=== PATIENT | male | born 1985 | race Caucasian/White ===

== ENCOUNTER 2024-01-29 11:05 | Emergency (ER) | payer OTHER, SELFPAY ==
--- NOTE | ~2024-01-29 | XR_ITS ---
EXAMINATION: XR foot RT min 3V DATE: 01/29/2024 11:31 INDICATION: Right foot injury with pain at the base of the third toe TECHNIQUE: Dorsoplantar, two oblique and lateral views of the right foot were obtained. COMPARISON: None. FINDINGS: Oblique extra articular fracture across the proximal metaphyseal region of the third proximal phalanx . There is approximately 3 mm plantar/lateral displacement and 30 degrees dorsal angulation. No other fractures identified. Mild osteoarthritis at the first metatarsophalangeal and a few tarsometatarsal and interphalangeal joints. IMPRESSION: 1. Angulated and mildly displaced extra articular fracture at the base of the third proximal phalanx. Reviewed, dictated and finalized at location A. IMPRESSION: 1. Angulated and mildly displaced extra articular fracture at the base of the t hird proximal phalanx.
[2024-01-29 11:05] VITALS: BP 126/87; PULSE 76; RESP 16; TEMP 36.4; O2SAT 97
--- NOTE | 2024-01-29 11:35 | ED_ITS ---
HPI - Extremity Injury (Lower) General Chief Complaint: Extremity Injury, Lower Stated Complaint: right foot injury Time Seen by Provider: 01/29/24 11:21 Source: patient Mode of arrival: ambulatory Limitations: no limitations History of Present Illness HPI Narrative: patient here today with some injury to his right 3rd distal toe after he inadvertently kicked a wall has a history of stroke and has difficulty with control his lower extremity there is a mild deformity and pain with movement palpation otherwise there is a strong brisk pedal pulse no other injuries noted. complaint: foot injury Onset (ago): hour(s) Injury: Right: foot ( pain tenderness) Place: home Severity: severe Severity scale (1-10): 8 Related Data Allergies Allergy/AdvReac Type Severity Reaction Status Date / Time No Known Allergies Allergy Verified 01/29/24 11:11 Review of Systems Review of Systems: All systems reviewed & are unremarkable except as noted in HPI and below PMFSH Past Medical History Medical History History of stroke Exam Const: General: healthy appearing Nutritional Appearance: well nourished Orientation/consciousness: patient oriented x3 Limitations: no limitations Resp: Effort & Inspection: normal respiratory effort Auscultation: clear to auscultation bilaterally Cardio: Rate: regular rate Rhythm: regular rhythm GI: GI Palp: Yes Soft to palpation Auscultation: normal bowel sounds Skin: Wounds: wounds noted Other: bruise on the right 3rd toe Extrem: Other: pain with mild deformity and bruising to the 3rd right toe Course Course Emergency Course: patient received a dose of IM Toradol 60mg and reassessment pain level has improved x-ray performed reviewed which shows a fracture of his proximal 3rd phalanx on the right. Vital Signs Vital signs: Vital Signs Temperature 36.4 C L 01/29/24 11:05 Pulse Rate 76 01/29/24 11:05 Respiratory Rate 16 01/29/24 11:05 Blood Pressure 126/87 01/29/24 11:05 Pulse Oximetry 97 01/29/24 11:05 Oxygen Delivery Room Air 01/29/24 11:05 Temperature 36.5 C 01/29/24 12:10 Pulse Rate 85 01/29/24 12:10 Respiratory Rate 17 01/29/24 12:10 Blood Pressure 135/96 H 01/29/24 12:10 Pulse Oximetry 100 01/29/24 12:10 Oxygen Delivery Room Air 01/29/24 12:10 Critical Care Time Critical Care Time Critical Care Time: No Discharge Plan Discharge Clinical Impression: Fracture, toe Patient Disposition: Home, Self-Care Condition: Stable Instructions: Antibiotic Form, Toe Fracture (ED) Additional Instructions: advised patient to take medication as needed for pain and to follow with aubrey charlee / orthopedics for further evaluation treatment. Prescriptions: New tramadol 50 mg tablet 50 mg PO Q6H PRN (Reason: pain) Qty: 20 0RF Follow-up/Referrals: [facility] [Primary Care Provider] - Time of Disposition: 12:02
[2024-01-29] MEDS: KETOROLAC (*BKC) 60 MG/2 ML VIAL IM (11:41)
[2024-01-29 12:10] VITALS: BP 135/96; PULSE 85; RESP 17; TEMP 36.5; O2SAT 100
== END 2024-01-29 12:10 | disposition home or self-care (01) ==
PROVIDERS: Emergency Provider Emergency Medicine
DX: S92.511A Displaced fracture of proximal phalanx of right lesser toe(s), initial encounter for closed fracture (principal); W22.09XA Striking against other stationary object, initial encounter
CPT/HCPCS: 73630; 96372; 99284; J1885

== ENCOUNTER 2024-05-27 07:53 | Emergency (ER) | payer MEDICAID, SELFPAY ==
[2024-05-27 07:55] VITALS: BP 138/88; PULSE 80; RESP 14; TEMP 36.3; O2SAT 98
--- NOTE | 2024-05-27 08:02 | ED.EYEPROB ---
HPI - Eye Problem General Chief complaint: Eye Problems Stated complaint: left eye redness Source: patient Mode of arrival: ambulatory Limitations: no limitations History of Present Illness HPI Narrative: this is a 38-year-old male presents with some left eye irritation redness with some discharge no foreign body exposure no injury to the left eye. Patient denies any fever chills no shortness of breath. chief complaint: eye redness Onset (ago): day(s) Onset description: gradual Duration: constant Location: left eye Eye Symptoms: redness Related Data Allergies Allergy/AdvReac Type Severity Reaction Status Date / Time No Known Allergies Allergy Verified 01/29/24 11:11 Review of Systems Review of Systems: All systems reviewed & are unremarkable except as noted in HPI and below PMFSH Past Medical History Medical History History of stroke Exam Const: General: healthy appearing, no acute distress and alert Limitations: no limitations Eyes: Conjunctivae: conjunctival abnormality ( Conjunctival injection left eye) left Direct Ophthalmoscopy: no photophobia Chest: Chest palpation & inspection: normal inspection of the chest Resp: Effort & Inspection: normal respiratory effort Auscultation: clear to auscultation bilaterally Cardio: Rate: regular rate Rhythm: regular rhythm Skin: General skin exam: normal color Neuro: General: patient oriented x3, moves all extremities and no meningeal signs Course Course Emergency Course: antibiotic eyedrop given to left eye otherwise patient doing well no evidence of foreign body. Critical Care Time Critical Care Time Critical Care Time: No Discharge Plan Discharge Clinical Impression: Bacterial conjunctivitis Patient Disposition: Home, Self-Care Condition: Stable Instructions: Antibiotic Form, Conjunctivitis (ED) Additional Instructions: take medicine as prescribed and follow up with primary if symptoms persist or worsen. Prescriptions: New neomycin-polymyxin B-dexameth [Maxitrol] 3.5mg/mL-10,000 unit/mL-0.1 % drops,suspension 1 drp LEFT EYE Q6H 7 Days Qty: 5 0RF No Action tramadol 50 mg tablet 50 mg PO Q6H PRN (Reason: pain) Qty: 20 0RF Follow-up/Referrals: UNKNOWN,DOCTOR [Primary Care Provider] - Time of Disposition: 08:05
[2024-05-27] MEDS: NEOMYCIN/POLYMYXIN/HYDROCORT 7.5 ML EYE DROPS (*BKC) 2 DROP LEFT EYE (08:17)
== END 2024-05-27 08:25 | disposition home or self-care (01) ==
LOC: CHSED 08:10
PROVIDERS: Emergency Provider Emergency Medicine
DX: H10.89 Other conjunctivitis (principal); Z86.73 Personal history of transient ischemic attack (TIA), and cerebral infarction without residual deficits
CPT/HCPCS: 99283; A9270

== ENCOUNTER 2024-09-03 17:01 | Emergency (ER) | payer OTHER, SELFPAY ==
--- NOTE | 2024-09-03 17:09 | PC.NURSE ---
Pt arrives POV to ED with c/o dental pain. States he would like to get some antibiotics to treat two infected teeth that he will be getting pulled in [place] in 2 weeks. Pt well-appearing, not in distress, and calm at time of triage.
[2024-09-03 17:20] VITALS: BP 149/100; PULSE 91; RESP 18; TEMP 36.6; O2SAT 100
--- NOTE | 2024-09-03 17:59 | ED_ITS ---
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 He is having 3 teeth pulled in the next 2 weeks. MD Complaint: tooth pain and tooth injury Onset (ago): year(s) Duration: constant Severity: moderate Severity scale (1-10): 8 Relieving factors: NSAIDs Exacerbating factors: chewing, cold, heat and drinking fluids Context: history of dental caries and trauma (mechanism) Treatment prior to arrival: none Related Data Allergies Allergy/AdvReac Type Severity Reaction Status Date / Time No Known Allergies Allergy Verified 01/29/24 11:11 Review of Systems Review of Systems: All systems reviewed & are unremarkable except as noted in HPI and below Constitutional: Constitutional: Reports no additional constitutional complaints Eyes: Eyes: Reports no additional eye complaints ENT: Reports system reviewed and no additional complaints, except as documented Cardiovascular: Cardiovascular: Reports no additional cardiovascular complaints Respiratory: Respiratory: Reports no additional respiratory complaints Gastrointestinal: Gastrointestinal: Reports no additional gastrointestinal complaints Genitourinary: Genitourinary: Reports no additional male genitourinary complaints Musculoskeletal: Musculoskeletal: Reports no additional musculoskeletal complaints Integumentary/Breasts: Skin/Breast: Reports system reviewed and no additional complaints, except as docu Neurologic: Reports system reviewed and no additional complaints, except as documented Psychiatric: Psychiatric: Reports no additional psychiatric complaints Endocrine: Endocrine: Reports no additional endocrine complaints Hematologic/Lymphatic: Hematologic/Lymphatic: Reports no additional hematologic/lymphatic complaints Allergic/Immunologic: Allergic/Immunologic: Reports no additional allergic/immunologic complaints PMFSH Past Medical History Medical History History of stroke Exam Const: General: healthy appearing Nutritional Appearance: well nourished Orientation/consciousness: patient oriented x3 Limitations: no limitations HENMT: Head: normal to inspection Ears: external ears normal Face/Nose/Sinus: Normal external nose present Other: Poor dentition seen throughout the entire oral cavity secondary to prior trauma and carries the colon no abscess is seen; he pointed out 3 teeth of a mix from mandible to maxillary that her the source of infection Eyes: Conjunctivae: conjunctivae normal Pupils: Equal, round and reactive pupils present EOM: EOMs intact bilaterally Neck: Neck: normal visual inspection Chest: Chest palpation & inspection: normal inspection of the chest Resp: Effort & Inspection: normal respiratory effort and not labored Auscul tation: clear to auscultation bilaterally and no crackles Cardio: Rate: regular rate Rhythm: regular rhythm Heart sounds: no murmurs GI: Inspection: non-distended Auscultation: normal bowel sounds : General: Yes bladder normal to palpation Back/Spine/Pelvis: Back: no CVA tenderness Skin: General skin exam: normal color Rashes: no rashes Wounds: no wounds Neuro: General: patient oriented x3 Cranial nerves: Yes Nystagmus not present Speech: normal speech Extrem: General: normal to inspection Psych: Mental Status: mental status grossly normal Affect: normal affect Attitude: cooperative Course Vital Signs Vital signs: Vital Signs Temperature 36.6 C 09/03/24 17:20 Pulse Rate 91 09/03/24 17:20 Respiratory Rate 18 09/03/24 17:20 Blood Pressure 149/100 H 09/03/24 17:20 Pulse Oximetry 100 09/03/24 17:20 Oxygen Delivery Room Air 09/03/24 17:20 Temperature 36.6 C 09/03/24 17:20 Pulse Rate 91 09/03/24 17:20 Respiratory Rate 18 09/03/24 17:20 Blood Pressure 149/100 H 09/03/24 17:20 Pulse Oximetry 100 09/03/24 17:20 Oxygen Delivery Room Air 09/03/24 17:20 MDM - Dental/Oral MDM Narrative Medical decision making narrative: patient is a 39-year-old male with poor dentition secondary to prior trauma. He is having lots of pain and plans for removal of 3 teeth in the next 2 weeks. Will do Augmentin per his choice which works the best over the years. He did not want pain management. He will use [id number] medicine. Discharge Plan Discharge Clinical Impression: Mandible pain, Maxilla pain Patient Disposition: Home, Self-Care Condition: Stable Instructions: Antibiotic Form, Toothache (ED) Prescriptions: New amoxicillin-pot clavulanate 875-125 mg tablet 1 tablet PO BID 10 Days Qty: 20 0RF Follow-up/Referrals: Aki,Leobardo Renee MD [Primary Care Provider] - Time of Disposition: 18:27
[2024-09-03 18:31] VITALS: BP 119/81; PULSE 72; RESP 18; TEMP 36.5; O2SAT 94
== END 2024-09-03 18:33 | disposition home or self-care (01) ==
PROVIDERS: Emergency Provider Emergency Medicine; PCP Family Medicine
DX: R68.84 Jaw pain (principal)
CPT/HCPCS: 99283

== ENCOUNTER 2024-11-19 08:45 | Emergency (ER) | payer OTHER, SELFPAY ==
[2024-11-19 08:45] VITALS: BP 142/96; PULSE 89; RESP 16; TEMP 36.3; O2SAT 97
--- NOTE | 2024-11-19 08:51 | ED_ITS ---
HPI - Dental/Oral General Chief complaint: Dental/Oral Stated complaint: dental pain Time Seen by Provider: 11/19/24 08:46 Source: patient Mode of arrival: ambulatory Limitations: no limitations History of Present Illness HPI Narrative: patient is a 39-year-old male with general dental complaints and issues but specifically right upper jaw dental issues for the past week. His main reason for poor dentition and cracked teeth her from a brain aneurysm and a seizure many years ago. He has an appointment with a dentist at the end of the month. MD Complaint: tooth pain and tooth injury Location: Tooth # ( One, 2, 3) Onset (ago): week(s) (1) Duration: constant Severity: moderate Severity scale (1-10): 5 Relieving factors: nothing Exacerbating factors: nothing Context: history of dental caries and trauma (mechanism) Associated symptoms: other ( none) Treatment prior to arrival: oral analgesic ( [place]) Related Data Allergies Allergy/AdvReac Type Severity Reaction Status Date / Time No Known Allergies Allergy Verified 11/19/24 08:47 Review of Systems Review of Systems: All systems reviewed & are unremarkable except as noted in HPI and below Constitutional: Constitutional: Reports no additional constitutional complaints Eyes: Eyes: Reports no additional eye complaints ENT: Reports system reviewed and no additional complaints, except as documented Cardiovascular: Cardiovascular: Reports no additional cardiovascular complaints Respiratory: Respiratory: Reports no additional respiratory complaints Gastrointestinal: Gastrointestinal: Reports no additional gastrointestinal complaints Genitourinary: Genitourinary: Reports no additional male genitourinary complaints Musculoskeletal: Musculoskeletal: Reports no additional musculoskeletal complaints Integumentary/Breasts: Skin/Breast: Reports system reviewed and no additional complaints, except as docu Neurologic: Reports system reviewed and no additional complaints, except as documented Psychiatric: Psychiatric: Reports no additional psychiatric complaints Endocrine: Endocrine: Reports no additional endocrine complaints Hematologic/Lymphatic: Hematologic/Lymphatic: Reports no additional hematologic/lymphatic complaints Allergic/Immunologic: Allergic/Immunologic: Reports no additional allergic/immunologic complaints PMFSH Past Medical History Medical History History of stroke Exam Const: General: healthy appearing Nutritional Appearance: well nourished Orientation/consciousness: patient oriented x3 HENMT: Head: normal to inspection Ears: external ears normal Face/Nose/Sinus: Normal external nose present Other: general poor dentition and cracked teeth but specifically tooth 1 2 and 3 are worn down and cracked and irritated /inflamed; no abscesses Eyes: Conjunctivae: conjunctivae normal Pupils: Equal, round and reactive pupils present EOM: EOMs intact bilaterally Neck: Neck: normal visual inspection Chest: Chest palpation & inspection: normal inspection of the chest Resp: Effort & Inspection: normal respiratory effort and not labored Auscultation: clear to auscultation bilaterally and no crackles Cardio: Rate: regular rate Rhythm: regular rhythm Heart sounds: no murmurs GI: Inspection: non-distended GI Palp: Yes Soft to palpation and No Tenderness to palpation present (GI) Auscultation: normal bowel sounds : General: Yes bladder normal to palpation Back/Spine/Pelvis: Back: no CVA tenderness Skin: General skin exam: normal color Rashes: no rashes Wounds: no wounds Neuro: General: patient oriented x3 Cranial nerves: Yes Nystagmus not present Speech: normal speech Extrem: General: normal to inspection Psych: Mental Status: mental status grossly normal Affect: normal affect Attitude: cooperative Discharge Plan Discharge Clinical Impression: Maxilla pain Patient Disposition: Home, Self-Care Condition: Stable Instructions: Antibiotic Form, Toothache (ED) Additional Instructions: please follow-up with the dentist as planned at the end of this month. Patient Language: Telugu Prescriptions: New clindamycin HCl 300 mg capsule 300 mg PO TID 10 Days Qty: 30 0RF ibuprofen 800 mg tablet 800 mg PO TID PRN (Reason: pain) Qty: 30 0RF No Action amoxicillin-pot clavulanate 875-125 mg tablet 1 tablet PO BID 10 Days Qty: 20 0RF Follow-up/Referrals: Homar,MARYJANE Iraheta [Primary Care Provider] - Time of Disposition: 09:00
--- OUTSIDE RECORDS SUMMARY | 2024-11-19 08:56 | XMS_ITS | Patient Health Record ---
Author Organization Address [address] [place] [address] Care Team Providers Care Fruit Packer Name Role Phone Goran Mckinney Primary Care Provider Allergies No Known Allergies Reason For Referral No Information Medications Medication SIG (Take, Route, Frequency, Duration) Notes Start Date End Date Status Amoxicillin Active Social History Tobacco Use: Social History Observation Description Date Details (start date - stop date) Current Smoker NA - NA Tobacco Use/Smoking Question Answer Notes Are you a current smoker Plan Of Treatment No Information Medical (General) History Medical History History ICD Code high blood pressure herpes/fever blisters dialysis-2008 radiation treatment difficulty breathing stroke 2008 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
--- OUTSIDE RECORDS SUMMARY | 2024-11-19 08:59 | XMS_ITS | Encounter Summary ---
Author Name [facility] Address [address] [place] [address] Care Team Providers Care Retail Sales Associate Seasonal Name Role Phone AARON KENNEDY Primary Care Provider Unavailab le Insurance Providers: All historical and current Section Date Range: From patient's date of to the date document was created. This section includes the names of all active insurance providers for the patient. Insurance Provider Type of Coverage Plan Name Start of Policy Coverage End of Policy Coverage Group Number Member ID Insurance Provider's Telephone Number Policy Palacios's Name Patient's Relationship to Policy Palacios [facility] 2018 PRIME Sep 29, 2017 RETIREE [id number] CHERISERICK Bell PATIENT [facility] 2018 TRICA RE Sep 29, 2017 PRIME [id number] RICK CUMMINGS PATIENT Selected Encounter This section includes the information on record at NH for the Encounter. Date/Time Encounter Type Encounter Description Reason Provider Source Mar 18, 2024 10:30 AM OFFICE O/P EST LOW 20 MIN PRIMARY CARE/MEDICINE ICD-10-CM Z00.00 Encntr for general adult medical exam w/o abnormal findings JENNIFER KENNEDY IHMariana Encounter Template Text not used by [facility] Assessments - Encounter Diagnoses This section includes the primary and secondary diagnoses documented for the Encounter. Date/Time Primary/Secondary Diagnosis Diagnosis Name Provider Source Mar 18, 2024 12:16 PM PRIMARY Encntr for general adult medical exam w/o abnormal findings JENNIFER KENNEDY [facility] Mar 18, 2024 12:16 PM SECONDARY Adjustment disorder with depressed mood JENNIFER KENNEDY [facility] Mar 18, 2024 12:16 PM SECONDARY Arteriovenous malformation, site unspecified JENNIFER KENNEDY [facility] Mar 18, 2024 12:16 PM SECONDARY Pain in unspecified knee JENNIFER KENNEDY [facility] Mar 18, 2024 12:16 PM SECONDARY Tobacco use JENNIFER KENNEDY [facility] Mar 18, 2024 12:16 PM SECONDARY Vitamin D deficiency, unspecified JENNIFER KENNEDY [facility] Plan of Treatment: Future Appointments (+ 6 months) and Future Tests (+/- 45 days) The Plan of Treatment section includes future care activities for the patient from all [place] treatmentfacilities. This section includes future appointments and future orders which are active, pending or scheduled. Future Appointments This section includes appointments that were scheduled to occur 6 months from the date of the Encounter, up to a maximum of 20 appointments. The data comes from all [place] treatment facilities. Appointment Date/Time Appointment Type Appointme nt Facility Name Apr 30, 2024 08:30 AM AMBULATORY - SURGERY [facility] Lab Results: +/- 30 days of the encounter This section includes the Chemistry and Hematology Lab Results on record with NH for the patient. Radiology Reports and Pathology Reports are provided separately, in subsequent sections. Lab Results This section contains the Chemistry/Hematology Results that were resulted 30 days before or 30 daysafter the date of the Encounter. Date/Time Source Result Type Result - Unit Interpretation Reference Range Comment Mar 18, 2024 12:[address] [facility] LIPID PANEL (STL) Specimen Type: PLASMA Comment: No hemolysis noted. Ordering Provider: GIL KENNEDY Report Released Date/Time: Mar 18, 2024 10:55 AM Reporting Lab: [facility] [address] [facility] [address] Performing Lab: [facility] [address] [facility] [address] CHOLESTEROL 209 mg/dL H 0-200 TRIGLYCERIDE 247 mg/dL H 0-150 CALCULATED LDL 106 mg/dL HDL(New) 54 mg/dL >40 Mar 18, 2024 12:00 AM [facility] COMPREHENSIVE METABOLIC PANEL Specimen Type: PLASMA Comment: No hemolysis noted. Ordering Provider: GIL KENNEDY Report Released Date/Time: Mar 18, 2024 10:55 AM Reporting Lab: [place] [address] [facility] [address] Performing Lab: [address] [address] CREATININE 1.14 mg/dL 0.7-1.3 UREA NITROGEN 16.6 mg/dL 9.0-25.0 GLUCOSE 108 mg/dL H 72-99 SODIUM 139 meq/L 136-145 POTASSIUM 4.9 meq/L 3.5-5 CHLORIDE 106 meq/L 98-107 CARBON DIOXIDE 25 meq/L 22-31 CALCIUM 9.3 mg/dL 8.4-10.4 PROTEIN 6.9 g/dL 6-8.6 ALBUMIN 4.3 g/dL 3.4-5 TOTAL BILIRUBIN 0.5 mg/dL 0.2-1.2 ALKALINE PHOSPHATASE 73 U/L 40-150 AST/SGOT 28 U/L 5-34 ALT/SGPT 24 U/L 8-40 EGFR (CKD-EPI 2020) 85.5 >60 Mar 18, 2024 12:00 AM [facility] HGA1C Specimen Type: BLOOD No comment entered. Ordering Provider: GIL KENNEDY Report Released Date/Time: Mar 18, 2024 10:55 AM Reporting Lab: [address] [address] Performing Lab: [address] [address] HGA1C 5.5 4.0-6.0 Mar 18, 2024 12:00 AM [facility] TSH W/ REFLEX FT4 (STL) Specimen Type: PLASMA No comment entered. Ordering Provider: GIL KENNEDY Report Released Date/Time: Mar 18, 2024 10:55 AM Reporting Lab: [address] [address] Performing Lab: [address] [place] [address] TSH 0.605 u[IU]/mL 0.47-5 Mar 18, 2024 12:00 AM [facility] CBC Specimen Type: BLOOD No comment entered. Ordering Provider: GIL KENNEDY Report Released Date/Time: Mar 18, 2024 10:55 AM Reporting Lab: [address] [address] Performing Lab: [address] [address] WBC 4.7 10*3/uL 3.6-11.2 RBC 4.62 10*6/uL 4.10-5.70 HGB 14.3 g/dL 13.1-16.8 HCT 42.9 38.2-48.4 MCV 92.9 fL 80.0-100.0 MCH 31.0 pg 27.0-34.0 MCHC 33.3 g/dL 33.0-36.0 PLT 237 10*3/uL 150-400 MPV 10.6 fL 7.5-11.2 RDW 12.2 11.8-15.1 LYMPHOCYTES, AUTO % 30 MONOCYTES, AUTO % 8 NEUTROPHILS, AUTO % 58 EOSINOPHILS, AUTO % 3 BASOPHILS, AUTO % 1 LYMPHOCYTES, ABSOLUTE 1.42 10*3/uL 0.77-4.50 MONOCYTES, ABSOLUTE 0.38 10*3/uL 0.19-0.80 NEUTROPHILS, ABSOLUTE 2.72 10*3/uL 2.10-8.00 EOSINOPHILS, ABSOLUTE 0.13 10*3/uL 0.00-0.60 BASOPHILS, ABSOLUTE 0.06 10*3/uL 0.00-0.20 Mar 18, 2024 12:00 AM [facility] VITAMIN D, 25-HYDROXY Specimen Type: SERUM No comment entered. Ordering Provider: GIL KENNEDY Report Released Date/Time: Mar 18, 2024 10:55 AM Reporting Lab: [address] [address] Performing Lab: [address] [address] VITAMIN D, 25-HYDROXY 35.9 ng/mL 30-96 Vital Signs: All taken on the encounter date This section contains inpatient and outpatient Vital Signs collected on the date of the Encounter. Date/Time Temperature Pulse Blood Pressure Respiratory Rate SP02 Pain Height Weight Body Mass Index Source Mar 18, 2024 10:28 AM 97.6 77 122/81 [address] [facility] Social History: Smoking Status (Most current) and Tobacco Use (All prior to encounter date) This section includes the most current, and the historical, smoking and tobacco- related health factors from the [place] facility where the Encounter took place. Current Smoking Status This section includes the most current smoking, or tobacco-related health factor, from the [place] facility where the Encounter took place. Date/Time Current Smoking Status Comment Facil ity Mar 18, 2024 10:30 AM VA-TOBACCO FORMER USER [facility] Tobacco Use History This section includes a history of the smoking, or tobacco-related health factors, that were collected on or before the date of the Encounter. The data comes from the [place] facility where the Encounter took place. Date/Time Smoking Status/Tobacco Use Comment F acility Mar 18, 2024 10:30 AM [facility] QUIT < [facility] Mar 18, 2023 09:00 AM VA-TOBACCO DOESNT USE WI [address] [facility] Mar 18, 2023 09:00 AM VA-TOBACCO USE [address] TO [address] [facility] Mar 18, 2023 09:00 AM VA-TOBACCO USE ADVICE 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 Mar 18, 2023 09:00 AM VA-TOBACCO USE MED NO [facility] Mar 18, 2023 09:00 AM VA-TOBACCO USER EVERY DAY [facility] Encounter Notes: All associated encounter notes This section contains the clinical notes associated to the Encounter. Date/Time Encounter Note(s) Provider Source Mar 19, 2024 07:56 AM PHYSICIAN LETTERS: LOCAL TITLE: TEST RESULT GENERAL LETTER STL STANDARD TITLE: PHYSICIAN LETTERS DATE OF NOTE: MAR 19, 2024@07:56 ENTRY DATE: MAR 19, 2024@07:56:43 AUTHOR: AARON KENNEDY EXP COSIGNER: URGENCY: STATUS: COMPLETED [facility] [address] [place] [address] MAR 19, 2024 RICK CUMMINGS [address] [place], [place] [address] Dear Rick Cummings, I would like to update you on your recent test results. LIPID PROFILE - High cholesterol and triglycerides (lipids) are risk factors for heart disease. Your cholesterol should fall between 140 and 200, and your triglycerides levels should be less than or equal to 150. HDL is the good cholesterol and should ideally be greater than 40. LDL is the bad cholesterol and optimal levels should be less than 100 (near optimal is between 100 and 129). TRIGLYCERIDE 247 H mg/dL 03/18/2024 CHOLESTEROL 209 H mg/dL 03/18/2024 HDL(New) 54 mg/dL 03/18/2024 CALCULATED LDL 106 mg/dL 03/18/2024 These results are abnormal. You can improve these values by changing your diet and exercise regimen. Please review the following recommendations: -Incorporate 30-minutes of exercise with walking 5 days per week. Increasing your physical activity can help with weight management and improve your cholesterol levels. -Carefully review nutrition labels. Decrease intake of saturated fats or trans-fats. Monitor your salt intake. -Reduce your intake of sugars such as cake or candy. Additional hidden sugars are found foods such as pastries, breads, and pasta. Monitor your intake of these items as well and try not to consume on a daily basis. -Increase your intake of fresh or frozen fruits and vegetables which is preferred over canned or processed items. Canned foods have high amounts of sugar and salt. -Low fat dairy products are encouraged. -Leaner meats such as chicken or fish can have less fat that beef or pork. HEMOGLOBIN A1C - Gives us information about your diabetes (sugar or glucose) control over the past 3 months. Your target is to keep your A1C below 5.7%. HGA1C 5.5 % 03/18/2024 00:00 These readings are within normal limits. CBC - A complete blood count (CBC) gives important information about the kinds and numbers of cells in the blood, especially red blood cells, white blood cells, and platelets. HGB 14.3 g/dL 03/18/2024 00:00 HEMATOCRIT 42.9 % (03/18/24 00:00) PLT 237 10*3/uL 03/18/2024 00:00 WHITE BLOOD COUNT 4.7 10*3/uL (03/18/24 00:00) These readings are within normal limits. CHEM 7 - This is important information about the current status of your kidneys, liver, and electrolyte and acid/base balance as well as of your blood sugar and blood proteins. SODIUM 139 mEq/L 03/18/2024 POTASSIUM 4.9 mEq/L 03/18/2024 CHLORIDE 106 mEq/L 03/18/2024 UREA NITROGEN 16.6 mg/dL 03/18/2024 CREATININE 1.14 mg/dL 03/18/2024 CALCIUM 9.3 mg/dL 03/18/2024 CARBON DIOXIDE 25 mEq/L 03/18/2024 GLUCOSE 108 H mg/dL 03/18/2024 EGFR (CKD-EPI 2020) 85.5 03/18/2024 These readings are within normal limits. LIVER FUNCTION PANEL - These are tests for liver function: PROTEIN 6.9 g/dL 03/18/2024 ALBUMIN 4.3 g/dL 03/18/2024 TOTAL BILIRUBIN 0.5 mg/dL 03/18/2024 ALKALINE PHOSPHATASE 73 U/L 03/18/2024 AST/SGOT 28 U/L 03/18/2024 ALT/SGPT 24 U/L 03/18/2024 These readings are within normal limits. TSH - Thyroid-stimulating hormone (also known as TSH or thyrotropin) is a peptide hormone synthesized and secreted by thyrotrope cells in the anterior pituitary gland, which regulates the endocrine function of the thyroid gland. TSH TSH 0.605 uIU/mL 03/18/2024 00:00 These readings are within normal limits. VITAMIN D - Helps promote the proper utilization of calcium and phosphorus, thereby producing proper bone maintenance. VITAMIN D, 25-HYDROXY 35.9 ng/mL 03/18/2024 00:00 These readings are within normal limits. PLAN Please continue your treatment as we discussed during your visit. If you have any questions please call your case loader operator. I look forward to seeing you at your next clinic appointment. Thank you for choosing the [facility] for your healthcare. FUTURE APPOINTMENTS: 03/18/2025 10:30 NOE-NOCO PACT 7 PCP Sincerely, AARON KENNEDY, MSN, AGNP-C NURSE PRACTITIONER RICK CUMMINGS JR, TAYLOR L [facility] Mar 18, 2024 10:49 AM PRIMARY CARE NOTE: LOCAL TITLE: PRIMARY CARE PROVIDER [facility] STAND[facility] TITLE: PRIMARY CARE NOTE DATE OF NOTE: MAR 18, 2024@10:49 ENTRY DATE: MAR 18, 2024@10:49:12 AUTHOR: AARON KENNEDY EXP COSIGNER: URGENCY: STATUS: COMPLETED ESTABLISHED PATIENT TQAH-NC-FQID REASON FOR VISIT/CHIEF COMPLAINT: follow up HPI: PMH, see problem list 38 y/o male who presents to the medical clinic for his scheduled follow up visit. The purpose of the visit today is to follow up on the veterans chronic medical conditions. Denies new concerns or complaints. He is accompanied to clinic with his significant other. Last PCP visit: 03/18/2023 AVM. 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 Referred to private neurosurgery clinic in 2022. Based on his prior imaging has neurosurgery provider felt like the aneurysm was stable. Vitamin D deficiency. - Completed ergocalciferol. Taking OTC cholecalciferol of unknown dose. Headache - Prior head CT revealed unchanged encephalomalacia and gliosis predominantly throughout the right cerebellar hemisphere; otherwise, no acute hemorrhage WHAT IS YOUR GOAL FOR TODAY? F/U chronic medical conditions SOURCE(S) OF HISTORY: -Patient PAST MEDICAL HISTORY: 1) Congenital arteriovenous malformation comment: 12/2007 [place] 2) Tinnitus 3) Pneumonia, organism unspecified comment: August 2010, received pneumovax vaccine comment: 02/20/11 ru and l [place], [place] 4) Sleep disturbances 5) Cerebral aneurysm, nonruptured (ICD-9-CM 437.3) 6) Adjustment disorder with depressed mood (SNOMED CT 56956831) 7) Pain of joint of knee (SNOMED CT 4014149149) 8) Vitamin D Deficiency ([facility] [id number]) SURGICAL HISTORY: - aneurysm clip in 2007 FAMILY MEDICAL HISTORY: DM: father, sister, PGF, paternal uncle CAD/IHD: mother (HTN) MH: denies CA: denies SOCIAL HISTORY: Nicotine: quit smoking tobacco, vaping Alcohol: consumes ETOH socially Illicit Drugs: present use, MJ -Lives: w/ cousin -Grocery: independent -Meals: independent -ADL's: independent -Transportation: grandfather brought him to clinic -Medications: independent -finances: independent Allergy: ADHESIVE TAPE Allergy list reviewed and remains current. MEDICATIONS: Active Outpatient Medications (including Supplies): Active Outpatient Medications Status 1) CHOLECALCIF 50MCG (D3-2,000UNIT) TAB TAKE ONE TABLET ACTIVE BY MOUTH ONCE A DAY FOR VITAMIN D DEFICIENCY START CHOLECALCIFEROL AFTER COMPLETING ERGOCALCIFEROL MEDICATION RECONCILIATION: completed REVIEW OF SYSTEMS: See HPI for further details of positive complaints. All 10 systems reviewed and otherwise negative. PHYSICAL EXAMINATION: VITALS (most recent, as listed in the electronic record): Temperature: 97.6 F [36.4 C] (03/18/2024 10:28) BP: 122/81 (03/18/2024 10:28) Pulse: 77 (03/18/2024 10:28) Resp: 18 (03/18/2024 10:28) PulsOx: 98% (03/18/2024 10:28) Pain: 2 (03/18/2024 10:28) Weight: Measurement DT WEIGHT LB(KG)[BMI] 03/18/2024 10:28 167.2(75.84)[22] PHYSICAL EXAMINATION: General appearance: well-groomed, well-nourished, in no distress HEENT: sclera/conjunctiva clear, TMs pearly colindres, nares patent no secretions or inflammation, oropharynx WNL Neck: supple, no lymphadenopathy or thyromegaly Cardiovascular: RRR, no murmur, no gallop Respiratory: CTA, no wheezes, crackles or rhonchi ABD/GI: normal contour, bs + in all quads, non-tender M/S: normal gait and posture Extremities: radial/PT pulses 2+, warm, well-perfused Psych: normal affect Neuro: Alert and oriented x 3 Skin: warm, dry, normal color and texture, skin intact DATA REVIEW: HGA1C 5.7 % 03/18/2023 09:40 = Lipid Panel: TRIGLYCERIDE 129 mg/dL 03/18/2023 09:40 CHOLESTEROL 219 H mg/dL 03/18/2023 09:40 HDL(New) 49 mg/dL 03/18/2023 09:40 CALCULATED LDL 144 mg/dL 03/18/2023 09:40 = CMP: SODIUM 142 mEq/L 03/10/2023 15:05 POTASSIUM 4.4 mEq/L 03/10/2023 15:05 CHLORIDE 107 mEq/L 03/10/2023 15:05 UREA NITROGEN 8 L mg/dL 03/10/2023 15:05 CREATININE 1.10 mg/dL 03/10/2023 15:05 CALCIUM 9.1 mg/dL 03/10/2023 15:05 PROTEIN 6.9 g/dL 03/10/2023 15:05 ALBUMIN 4.2 g/dL 03/10/2023 15:05 ALKALINE PHOSPHATASE 83 U/L 03/10/2023 15:05 ALT/SGPT 33 U/L 03/10/2023 15:05 AST/SGOT 31 U/L 03/10/2023 15:05 TOTAL BILIRUBIN 0.5 mg/dL 03/10/2023 15:05 CARBON DIOXIDE 25 mEq/L 03/10/2023 15:05 GLUCOSE 84 mg/dL 03/10/2023 15:05 EGFR (CKD-EPI 2020) 89.8 03/10/2023 15:05 = CBC: WBC 4.8 10*3/uL 03/10/2023 15:05 RBC 4.68 10*6/uL 03/10/2023 15:05 HGB 15.3 g/dL 03/10/2023 15:05 HCT 43.8 % 03/10/2023 15:05 MCV 93.6 fL 03/10/2023 15:05 MCH 32.7 pg 03/10/2023 15:05 MCHC 34.9 g/dL 03/10/2023 15:05 RDW 12.5 % 03/10/2023 15:05 PLT 176 10*3/uL 03/10/2023 15:05 MPV 10.3 fL 03/10/2023 15:05 NEUTROPHILS, AUTO % 48 % 03/10/2023 15:05 LYMPHOCYTES, AUTO % 31 % 03/10/2023 15:05 MONOCYTES, AUTO % 17 % 03/10/2023 15:05 EOSINOPHILS, AUTO % 3 % 03/10/2023 15:05 BASOPHILS, AUTO % 1 % 03/10/2023 15:05 NEUTROPHILS, ABSOLUTE 2.32 10*3/uL 03/10/2023 15:05 LYMPHOCYTES, ABSOLUTE 1.48 10*3/uL 03/10/2023 15:05 MONOCYTES, ABSOLUTE 0.80 10*3/uL 03/10/2023 15:05 EOSINOPHILS, ABSOLUTE 0.16 10*3/uL 03/10/2023 15:05 BASOPHILS, ABSOLUTE 0.05 10*3/uL 03/10/2023 15:05 = PSA: No PSA (LAST 10 5Y) EO data found = TSH: No TSH (1YR) EO data found = Vitamin D: VITAMIN D, 25-HYDROXY 10.8 L ng/mL 11/07/2022 06:00 = UA: URINE COLOR Colorless 03/10/2023 15:05 APPEARANCE Clear 03/10/2023 15:05 U.PH 6.5 03/10/2023 15:05 U.BILIRUBIN Negative mg/dL 03/10/2023 15:05 U.NITRITE Negative mg/dL 03/10/2023 15:05 URINE RBC/HPF 1 /HPF 03/10/2023 15:05 URINE WBC/HPF 3 /HPF 03/10/2023 15:05 BACTERIA RARE /HPF 03/10/2023 15:05 = Vitamin B12: B12 487 pg/mL 11/07/2022 06:00 = Micral: CREATuF: 42.8 (03/10/23 15:05) ASSESSMENT/PLAN: # Preventative Healthcare/Annual visit - routine healthcare, preventative screenings, and immunizations reviewed. # AVM/DUKES: - Discharged from neurology clinic. EEG was within normal limits. Epileptic medications not indicated at this time. - Last CT scan of head without new findings. [place] refer to [place] neuro[place] clinic for follow-up regarding aneurysm. Based on the last note from his private neurosurgery clinic it was recommended the be seen again in 1 year. # Vit D Def: - Continue daily [id number] vitamin D3 supplement - Repeat labs. Will make further recommendations based on repeat results # Adjustment disorder: - Mood is stable off meds at this time # Knee pain: - No overt complaints today # Tobacco Use: - Remains free of tobacco use. HM: AAA screen: defer d/t age Colorectal cancer screening: defer d/t age Prostate cancer screening: defer d/t age Lung cancer screening: Eligibility: defer d/t age ADMINISTERED Immunization Series Date Facility Reaction Info INFLUENZA, UNSPECIFIED FORMULATI* 08/03/2012 [facility] INFLUENZA, UNSPECIFIED FORMULATI* 06/05/2011 [facility] PNEUMOCOCCAL POLYSACCHARIDE PPV23 03/18/2023 [facility]* TDAP 03/18/2023 [facility] TDAP [employer] REFUSED ======= Immunization Date Facility Info COVID-19 (PFIZER), MRNA, LNP-S, * 03/18/2023 [facility] <I> COVID-19 (PFIZER), MRNA, LNP-S, * 03/18/2024 No Site <I> clinical reminders completed; educated on continuing to avoid salt, conc sweets; benefits of continued exercise, reg PCP visits, routine eyes exams Plan of care has been discussed with including expected therapeutic benefits and potential side effects of prescribed medications and treatments. Current medication list has been reconciled with and updated accordingly. was instructed to keep all scheduled appointments and to contact correctional case manager for any additional problems. verbalizes understanding and is in agreement with the plan of care. RTC: Annually or sooner as needed PREVENTION & SCREENING: ALCOHOL: Clinical Reminder not due now or within a month BLOOD PRESSURE: Clinical Reminder not due now or within a month HEMOGLOBIN A1C: Clinical Reminder not due now or within a month RHS Screen: RHS Screen Session Format: Face to Face Environmental Check Screening was not completed at this time due to: Another adult present /jese/ AARON KENNEDY, MSN, AGNP-C NURSE PRACTITIONER Signed: 03/18/2024 12:16 A[facility]ON KENNEDY [facility] Mar 18, 2024 10:44 AM NURSING NOTE: LOCAL TITLE: V15 PACT FACE TO FACE NOTE STL STANDARD TITLE: NURSING NOTE DATE OF NOTE: MAR 18, 2024@10:44 ENTRY DATE: MAR 18, 2024@10:44:42 AUTHOR: AQUILES SALDIVAR EXP COSIGNER: URGENCY: STATUS: COMPLETED Homelessness/Food Insecurity Screen: In the past 2 months, have you been living in stable housing that you own, rent, or stay in as part of a household? Yes - Living in stable housing. Are you worried or concerned that in the next 2 months you may NOT have stable housing that you own, rent, or stay in as part of a household? No - Not worried about housing near future The reports the following: Within the past 12 months, you worried whether your food would run out before you got money to buy more. Never true Within the past 12 months, the food you bought just didn't last and you didn't have money to get more. Never true Tobacco Use Screening: The patient is a former tobacco user. The patient quit less than one year ago. /jese/ AQUILES SALDIVAR LPN LICENSED PRACTICAL NURSE Signed: 03/18/2024 10:[address] [facility]
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
--- OUTSIDE RECORDS SUMMARY | 2024-11-19 09:10 | XMS_ITS | Encounter Summary ---
Author Name [facility] [facility] [place] Address [address] [place] [address] Care Team Providers Care Industrial Photographer Name Role Phone AARON KENNEDY Primary Care [...] Palacios's Name Patient's Relationship to Policy Palacios [facility] 2018 PRIME Sep 29, 2017 RETIREE [id number] CHERISEMARCY BellDY PATIENT [facility] 2018 TRICA RE Sep 29, 2017 PRIME [id number] RICK CUMMINGS PATIENT Selected Encounter This section includes the information on [place] at [place] for the Encounter. Date/Time Encounter Type Encounter Description Reason Pro vider Source Sep 09, 2024 01:47 PM Outpatient Encounter GENERAL INTERNAL MEDICINE [facility] Encounter Template Text not used by [place] Social History: Smoking Status (Most current) and Tobacco Use (All prior to encounter date) This section includes the most current, and the historical, smoking and tobacco- related health factors from the [place] facility where the Encounter took place. Current Smoking Status This section includes the most current smoking, or tobacco-related health factor, from the [facility] facility where the [facility]counter took place. Date/Time Current Smoking Status Comment Bereket viveros Nov 06, 2022 11:27 PM [place] TOBAC[place] U SE CURRENT NRT DECLINE [facility] Tobacco Use History This section includes a history of the smoking, or tobacco-related health factors, that were collected on or before the date of the Encounter. The data comes from the [facility] where the Encounter took place. Date/Time Smoking Status/Tobacco Use Comment F acility Nov 06, 2022 11:25 PM [facility] ADMIT TOBACCO SCREEN YES [facility] Nov 06, 2022 11:25 PM [facility]YX ADMIT TOBACCO USE CIGS GR 5D [facility] Nov 06, 2022 11:25 PM [facility] DAILY TOBACCO INTELLIGENCE RESEARCH SPECIALIST RECEIVED [facility] Nov 06, 2022 11:25 PM [facility] DAILY TOBACCO MEDS ORDERED [facility] Encounter Notes: All associated encounter notes This section contains the clinical notes associated to the Encounter. Date/Time Encounter Note(s) Provider Source Sep 06, 2024 01:47 PM NONVA NOTE: LOCAL TITLE: [facility] SELF PRESENTING CARE COORD PLAN STANDARD TITLE: NONVA NOTE DATE OF NOTE: SEP 06, 2024@13:47 ENTRY DATE: SEP 09, 2024@13:47:33 AUTHOR: LETICIA JONES EXP COSIGNER: URGENCY: STATUS: COMPLETED [facility] SELF PRESENTING CARE COORD PLAN [address] Has ADDENDA Emergency Notification Intake Date Presenting to the Facility: Aug Method of Contact: Notified from [facility] worklist Notification ID: [id number] [facility] Referral #: [id number] Clinical Review [facility] Name: Hospital: [facility] Address: [address] [place] [address]: [place]: [place] Zip Code: [address] [facility] Facility Point of Contact: Name: Nahed Jacobsen Chief complaint: Tooth Pain Primary Diagnosis: Disposition Discharged Date of discharge: Aug Discharge to home Records req'd by fax. /jese/ LETICIA JONES ADVANCED ENROLLMENT REPRESENTATIVE Signed: 09/09/2024 13:49 Receipt Acknowledged By: 09/09/2024 15:44 /es/ AARON KENNEDY, MSN, AGNP-C NURSE PRACTITIONER 09/09/2024 14:14 /es/ FREDY DOOLEY, RN MSN REGISTERED NURSE 09/13/2024 ADDENDUM STATUS: COMPLETED Records r/t this episode of care sent to [facility] for scanning. /jese/ LETICIA JONES ADVANCED ENROLLMENT REPRESENTATIVE Signed: 09/13/2024 16:59 LETICIA JONES [facility]
--- OUTSIDE RECORDS SUMMARY | 2024-11-19 09:10 | XMS_ITS | Continuity of Care Document ---
Author Name [facility] Organization [facility] Care Team Providers Care Engineering Instructor Name Role Phone [facility] Unavailable Unavailable Problems Combined list of problems 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 It does not include entries that were removed or entered in error. Problem Status Onset Date Problem Type Date of Resolution Comments Source Adjustment disorder with depressed mood (SNOMED CT 31621173) Active Condition [facility] Cerebral aneurysm, nonruptured (ICD-9-CM 437.3) Active Condition [facility] Congenital arteriovenous malformation Active Condition Jan 17, 2011 Entered By: CHIOMA QUAN Comment: 12/2007 surgery in [facility] Diplopia * (ICD-9-CM 368.2) Active Condition [facility] Myopia Active Condition [facility] Pain of joint of knee (SNOMED CT 1126135130) Active Condition [facility] Pneumonia, organism unspecified Active Condition Jan 17, 2011 Entered By: CHIOAM QUAN Comment: August 2010, received pneumovax vaccineMar 08, 2011 Entered By: CHIOMA QUAN Comment: 02/20/11 rul and rml [facility] Sleep disturbances Active Condition [facility] Tinnitus Active Condition [facility] Vitamin D Deficiency (SCT 33345613) Active Condition [facility] Chest Pain * (ICD-9-CM 786.50) Inactive Condition 03/18/2023 [facility] Cyst, ganglion Inactive Condition 03/18/2023 Jan 17, 2011 Entered By: CHIOMA QUAN Comment: right wrist [facility] Encounters for unspecified Administrative Purpose (ICD-9-CM V68.9) Inactive Condition 03/18/2023 [facility] NEUTROPENIA, unspecified Inactive Condition 03/18/2023 [facility] Vitamin D Deficiency Inactive Condition 03/18/2023 [facility] visit for: services physical separation Active Condition [facility] visit for: refer patient without exam or treatment Active Condition DoD flat foot acquired (pes planus) Inactive Condition DoD metatarsalgia Active Condition DoD chest pain Active Condition DoD limb pain Active Condition DoD pharyngitis Inactive Condition DoD visit for: examination of subpopulation Active Condition DoD Need For Vaccination Typhoid Inactive Condition DoD new patient ophthalmological exam Active Condition DoD astigmatism Active Condition DoD joint pain, localized in the wrist Active Condition DoD visit for: physical medical evaluation board (MEB) Active Condition DoD muscle weakness generalized Active Condition DoD abdominal pain in the central upper belly (epigastric) Active Condition DoD feared medical condition not demonstrated Active Condition DoD disturbance of coordination ataxia Active Condition DoD visit for: administrative purpose Inactive Condition DoD Patient Counseling: Active Condition Do D visit for: ears / hearing exam Active Condition DoD assessment of patient condition work-related Active Condition DoD sinusitis acute Active Condition DoD pharyngitis acute Inactive Condition DoD ingrowing nail Active Condition DoD visit for: postsurgical exam Active Condition DoD carbuncle in the axilla Inactive Condition DoD conditions influencing health status Active Condition DoD essential hypertension Active Condition DoD decrease in appetite Active Condition DoD Patient Education Dietary Active Condition DoD Occupational Therapy Active Condition DoD Speech Articulation Dysarthria Active Condition DoD Speech Language Aphasia / Dysphasia Active Condition DoD voice disturbance Active Condition DoD difficulty swallowing (dysphagia) Active Condition [facility] Patient Counseling: Inquiry & Counseling Active Condition DoD intracerebral hemorrhage Active Condition DoD bacteremia Active Condition 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 [facility] Dietary Counseling Pertaining To Specific Condition Inactive Condition [facility] visit for: screening exam pulmonary tuberculosis Active Condition DoD Need For Vaccination Against Influenza Inactive Condition DoD contusion with intact skin surface - hand right dorsal Inactive Condition RICE and LLD x5 days DoD no psychiatric diagnosis or condition on axis I Active Condition Agree w/ JUAN Navarro, 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.Pt was instructed that if he ever feels any depressed/suici ban/homicidal to immediately 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 so he can receive all the suipport/medica l care he needs; pt understood and will comply.The pt should not have had a diagnosis of MDD, I downgraded it to adjustment dis, but our psychiatrist believe that he does not have a current psychiatric illness, so no psych diagnosis was given.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 DoD routine examination Inactive Condition D oD refractive error - myopia Active Condition DoD visit for: single organ system exam eyes Inactive Condition DoD enthesopathy knee Active Condition DoD Other Physical Therapy Active Condition DoD upper respiratory infection Active Condition DoD adjustment disorder Active Condition No current occupational impairment; adjustment disorder symptoms resolved. DoD major depression, single episode Active Condition Patient asseretd difficulty functioning due to insomnia and depression, suggesing significant occupatoinal impiarment. DoD pharyngitis streptococcus, group A: beta hemolytic Inactive Condition improved. DoD gastritis Active Condition drink wate r, diet as tolerates DoD Administrative Evaluation Services Active Condition PFPS man aged on OTC/ RX/ PT education DoD patellofemoral syndrome Active Condition Subjectively w/o improvement. Will refer member back to PT for documentation of previous encounters or eval of current condition status for FFFD and transfer. DoD disorders of muscle, ligament, and fascia Active Condition Iliotibial band syndrome DoD patellofemoral syndrome left Active Condition DoD Diagnosis: ICD-10-CM Z00.00 Encntr for general adult medical exam w/o abnormal findings Active Diagnosis . [facility] Diagnosis: ICD-10-CM Q27.30 Arteriovenous malformation, site unspecified Active Diagnosis [facility] Diagnosis: ICD-10-CM G40.89 Other seizures Active Diagnosis [facility] Allergies, Adverse Reactions, Alerts Combined list of allergies 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 It does not include entries that were removed or entered in error. Substance Category Reaction Severity Reaction type Status Date Reported Comments Source ADHESIVE TAPE Propensity to adverse reaction (finding) Eruption active 1 [facility] OTHER Drug allergy (disorder) Unknown active 8 [facility] Immunizations Combined list of available immunizations from the 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 Immunization Series Date Given Administered By Site Reaction Lot Number CVX Code Drug Healthcare Analyst Status Comments Source PNEUMOCOCCAL POLYSACCHARID E PPV23 2022 KARI,EDIT H R RIGHT DELTO ID [id number] 33 complet ed [facility] TDAP 2022 KARIEDIT H R LEFT DELTO ID [id number] 115 complet ed [facility] INFLUENZA, UNSPECIFIED FORMULATION 2011 88 complet ed [facility] INFLUENZA, UNSPECIFIED FORMULATION 2010 88 complet ed [facility] tuberculin skin test; purified protein derivative solution, intradermal 0 2009 KAREEN ARMENDARIZ [id number] [place] [employer] ([facility]) complet ed tuberculi n skin test; purified protein derivativ e solution, intraderm al DoD tuberculin skin test; purified protein derivative solution, intradermal 1 2009 JAZZ DAVIS [id number] 96 [place] [employer] ([facility]) complet ed tuberculi n skin test; purified protein derivativ e solution, intraderm al DoD tuberculin skin test; purified protein derivative solution, intradermal 1 2009 CIERA FOREMAN [id number] 96 [place] [employer] ([facility]) complet ed tuberculi n skin test; purified protein derivativ e solution, intraderm al DoD tuberculin skin test; purified protein derivative solution, intradermal 1 2009 WILTON SILVA [id number] 96 [place] [employer] ([facility]) complet ed tuberculi n skin test; purified protein derivativ e solution, intraderm al DoD typhoid Vi capsular polysaccharid e vaccine 1 2009 WILTON SILVA [id number] [place]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 (MED) complet ed Novel Influenza -S0R2-07, live virus for nasal administr ation DoD influenza virus vaccine, live, attenuated, for intranasal use 0 2008 UNK 111 Unknown (UNK) comple t ed influenza virus vaccine, live, attenuate d, for intranasa l use DoD influenza virus vaccine, live, attenuated, for intranasal use 1 2008 SERA PRASAD Radha [id number] 111 [employer] (MED) complet ed influenza virus vaccine, live, attenuate d, for intranasa l use DoD tuberculin skin test; purified protein derivative solution, intradermal 1 2007 KAREEN ARMENDARIZ [id number] [place] (PD) complet ed tuberculi n skin test; purified protein derivativ e solution, intraderm al DoD influenza virus vaccine, live, attenuated, for intranasal use 1 2007 KAREEN ARMENDARIZ [id number] 111 [employer] (MED) complet ed influenza virus vaccine, live, attenuate d, for intranasa l use DoD influenza virus vaccine, unspecified formulation 0 2006 UNK 88 Unknown (UNK) comple t ed influenza virus vaccine, unspecifi ed formulati on DoD tuberculin skin test; purified protein derivative solution, intradermal 1 2006 JAZZ DAVIS [id number] [place] (PD) complet ed tuberculi n skin test; purified protein derivativ e solution, intraderm al DoD influenza virus vaccine, live, attenuated, for intranasal use 1 2006 SINHAYVONNE VickShalom Rubio [id number] 111 [employer] (MED) complet ed influenza virus vaccine, live, attenuate d, for intranasa l use DoD hepatitis B vaccine, adult dosage 3 2006 UNK 43 Unknown (UNK) comple t ed hepatitis B vaccine, adult dosage DoD hepatitis A and hepatitis B vaccine 3 2006 ROQUE WHITNEY [id number] [facility] (SKB) complet ed hepatitis A and hepatitis B vaccine DoD tetanus and diphtheria toxoids, adsorbed, preservative free, for adult use (2 Lf of tetanus toxoid and 2 Lf of diphtheria toxoid) 0 2005 UNK 09 Unknown (UNK) comple t ed tetanus and diphtheri a toxoids, adsorbed, preservat guillermo free, for adult use (2 Lf of tetanus toxoid and 2 Lf of diphtheri a toxoid) DoD yellow fever vaccine 0 2005 UNK 37 Unknown (UNK) comple t ed yellow fever vaccine DoD hepatitis B vaccine, adult dosage 2 2005 UNK 43 Unknown (UNK) comple t ed hepatitis B vaccine, adult dosage DoD hepatitis A vaccine, adult dosage 2 2005 UNK 52 Unknown (UNK) comple t ed hepatitis A vaccine, adult dosage DoD typhoid Vi capsular polysaccharid e vaccine 1 2005 UNK 101 Unknown (UNK) comple t ed typhoid Vi capsular polysacch aride vaccine DoD TDAP 2005 115 complet ed [employer] poliovirus vaccine, inactivated 0 2005 UNK 10 Unknown (UNK) comple t ed polioviru s vaccine, inactivat ed DoD measles, mumps and rubella virus vaccine 0 2005 UNK 03 Unknown (UNK) comple t ed measles, mumps and rubella virus vaccine DoD meningococcal polysaccharid e vaccine (MPSV4) 1 2005 UNKNOWN 32 Unknown (UNK) comple t ed meningoco ccal polysacch aride vaccine (MPSV4) DoD hepatitis A vaccine, adult dosage 1 2005 UNK 52 Unknown (UNK) comple t ed hepatitis A vaccine, adult dosage DoD Results Combined list of recent chemistry, hematology and other laboratory results from Department of Defense and Veterans Affairs, ranging from 15 months to all on record, depending upon the facility. Order Name Results Value Reference Range Date Interpretation Specimen Comments Source LIPID PANEL (STL) CHOLESTEROL [MASS/VOLUM E] IN SERUM OR PLASMA 209 mg/dL 0 - 200 03/18 H Specimen Type: PLASMA Comment: No hemolysis noted. Ordering Provider: Nicanor KENNEDY Report Released Date/Time: Mar 18, 2024 10:55 AM Reporting Lab: [facility] [address] [address] Performing Lab: [facility] [address] [phone] [facility] LIPID PANEL (STL) TRIGLYCERID E [MASS/VOLUM E] IN SERUM OR PLASMA 247 mg/dL 0 - 150 03/18 H Specimen Type: PLASMA Comment: No hemolysis noted. Ordering Provider: Nicanor KENNEDY Report Released Date/Time: Mar 18, 2024 10:55 AM Reporting Lab: [facility] [address] [address] Performing Lab: [address] [address] [facility] LIPID PANEL (STL) CHOLESTEROL IN LDL [MASS/VOLUM E] IN SERUM OR PLASMA BY CALCULATION 106 mg/dL 03/18 Specimen Type: PLASMA Comment: No hemolysis noted. Ordering Provider: Nicanor KENNEDY Report Released Date/Time: Mar 18, 2024 10:55 AM Reporting Lab: [address] [address] Performing Lab: [address] [address] [facility] LIPID PANEL (STL) CHOLESTEROL IN HDL [MASS/VOLUM E] IN SERUM OR PLASMA 54 mg/dL 40 03/18 Specimen Type: PLASMA Comment: No hemolysis noted. Ordering Provider: Nicanor KENNEDY Report Released Date/Time: Mar 18, 2024 10:55 AM Reporting Lab: [address] [address] Performing Lab: [address] [phone] [facility] COMPREHENS GUILLERMO METABOLIC PANEL CREATININE [MASS/VOLUM E] IN SERUM OR PLASMA 1.14 mg/dL 0.7 - 1.3 03/18 Specimen Type: PLASMA Comment: No hemolysis noted. Ordering Provider: Nicanor KENNEDY Report Released Date/Time: Mar 18, 2024 10:55 AM Reporting Lab: [address] [address] Performing Lab: [address] [address] [facility] COMPREHENS GUILLERMO METABOLIC PANEL UREA NITROGEN [MASS/VOLUM E] IN SERUM OR PLASMA 16.6 mg/dL 9.0 - 25.0 03/18 Specimen Type: PLASMA Comment: No hemolysis noted. Ordering Provider: Nicanor KENNEDY Report Released Date/Time: Mar 18, 2024 10:55 AM Reporting Lab: [facility] [address] [place] [phone] Performing Lab: [facility] [address] [place] [phone] [facility] COMPREHENS GUILLERMO METABOLIC PANEL GLUCOSE [MASS/VOLUM E] IN SERUM OR PLASMA 108 mg/dL 72 - 99 03/18 H Specimen Type: PLASMA Comment: No hemolysis noted. Ordering Provider: Nicanor KENNEDY Report Released Date/Time: Mar 18, 2024 10:55 AM Reporting Lab: [address] [address] Performing Lab: [address] [address] [facility] COMPREHENS GUILLERMO METABOLIC PANEL SODIUM [MOLES/VOLU ME] IN SERUM OR PLASMA 139 meq/L 136 - 145 03/18 Specimen Type: PLASMA Comment: No hemolysis noted. Ordering Provider: Nicanor KENNEDY Report Released Date/Time: Mar 18, 2024 10:55 AM Reporting Lab: [address] [address] Performing Lab: [address] [address] [facility] COMPREHENS GUILLERMO METABOLIC PANEL POTASSIUM [MOLES/VOLU ME] IN SERUM OR PLASMA 4.9 meq/L 3.5 - 5 03/18 Specimen Type: PLASMA Comment: No hemolysis noted. Ordering Provider: Nicanor KENNEDY Report Released Date/Time: Mar 18, 2024 10:55 AM Reporting Lab: [address] [address] Performing Lab: [address] [address] [facility] COMPREHENS GUILLERMO METABOLIC PANEL CHLORIDE [MOLES/VOLU ME] IN SERUM OR PLASMA 106 meq/L 98 - 107 03/18 Specimen Type: PLASMA Comment: No hemolysis noted. Ordering Provider: Nicanor KENNEDY Report Released Date/Time: Mar 18, 2024 10:55 AM Reporting Lab: [facility] [address] [place] [phone] Performing Lab: [address] [phone] [place] [address] [facility] COMPREHENS GUILLERMO METABOLIC PANEL CARBON DIOXIDE, TOTAL [MOLES/VOLU ME] IN SERUM OR PLASMA 25 meq/L 22 - 31 03/18 Specimen Type: PLASMA Comment: No hemolysis noted. Ordering Provider: Nicanor KENNEDY Report Released Date/Time: Mar 18, 2024 10:55 AM Reporting Lab: [address] [address] Performing Lab: [address] [phone] [place] [address] [facility] COMPREHENS GUILLERMO METABOLIC PANEL CALCIUM [MASS/VOLUM E] IN SERUM OR PLASMA 9.3 mg/dL 8.4 - 10.4 03/18 Specimen Type: PLASMA Comment: No hemolysis noted. Ordering Provider: Nicanor KENNEDY Report Released Date/Time: Mar 18, 2024 10:55 AM Reporting Lab: [address] [address] Performing Lab: [address] [address] [facility] COMPREHENS GUILLERMO METABOLIC PANEL PROTEIN [MASS/VOLUM E] IN SERUM OR PLASMA 6.9 g/dL 6 - 8.6 03/18 Specimen Type: PLASMA Comment: No hemolysis noted. Ordering Provider: Nicanor KENNEDY Report Released Date/Time: Mar 18, 2024 10:55 AM Reporting Lab: [facility] [address] [place] [phone] Performing Lab: [address] [address] [facility] COMPREHENS GUILLERMO METABOLIC PANEL ALBUMIN [MASS/VOLUM E] IN SERUM OR PLASMA 4.3 g/dL 3.4 - 5 03/18 Specimen Type: PLASMA Comment: No hemolysis noted. Ordering Provider: Nicanor KENNEDY Report Released Date/Time: Mar 18, 2024 10:55 AM Reporting Lab: [facility] [address] [place] [phone] Performing Lab: [facility] [address] [place] [phone] [place] [address] [facility] COMPREHENS GUILLERMO METABOLIC PANEL BILIRUBIN.T OTAL [MASS/VOLUM E] IN SERUM OR PLASMA 0.5 mg/dL 0.2 - 1.2 03/18 Specimen Type: PLASMA Comment: No hemolysis noted. Ordering Provider: Nicanor KENNEDY Report Released Date/Time: Mar 18, 2024 10:55 AM Reporting Lab: [address] [address] Performing Lab: [address] [phone] [place] [address] [facility] COMPREHENS GUILLERMO METABOLIC PANEL ALKALINE PHOSPHATASE [ENZYMATIC ACTIVITY/VO LUME] IN SERUM OR PLASMA 73 U/L 40 - 150 03/18 Specimen Type: PLASMA Comment: No hemolysis noted. Ordering Provider: Nicanor KENNEDY Report Released Date/Time: Mar 18, 2024 10:55 AM Reporting Lab: [address] [address] Performing Lab: [address] [phone] [place] [address] [facility] COMPREHENS GUILLERMO METABOLIC PANEL ASPARTATE AMINOTRANSF ERASE [ENZYMATIC ACTIVITY/VO LUME] IN SERUM OR PLASMA 28 U/L 5 - 34 03/18 Specimen Type: PLASMA Comment: No hemolysis noted. Ordering Provider: Nicanor KENNEDY Report Released Date/Time: Mar 18, 2024 10:55 AM Reporting Lab: [facility] [address] [place] [phone] Performing Lab: [address] [address] [facility] COMPREHENS GUILLEROM METABOLIC PANEL ALANINE AMINOTRANSF ERASE [ENZYMATIC ACTIVITY/VO LUME] IN SERUM OR PLASMA 24 U/L 8 - 40 03/18 Specimen Type: PLASMA Comment: No hemolysis noted. Ordering Provider: Nicanor KENNEDY Report Released Date/Time: Mar 18, 2024 10:55 AM Reporting Lab: [address] [address] Performing Lab: [address] [phone] [place] [address] [facility] COMPREHENS GUILLERMO METABOLIC PANEL GLOMERULAR FILTRATION RATE/1.73 SQ M.PREDICTED [VOLUME RATE/AREA] IN SERUM, PLASMA OR BLOOD BY CREATININE- BASED FORMULA (CKD-EPI 2020) 85.5 60 03/18 Specimen Type: PLASMA Comment: No hemolysis noted. Ordering Provider: Nicanor KENNEDY Report Released Date/Time: Mar 18, 2024 10:55 AM Reporting Lab: [address] [phone] Performing Lab: [address] [phone] [place] [address] [facility] HGA1C HEMOGLOBIN A1C/HEMOGLO BIN.TOTAL IN BLOOD 5.5 4.0 - 6.0 03/18 Specimen Type: BLOOD No comment entered. Ordering Provider: Nicanor KENNEDY Report Released Date/Time: Mar 18, 2024 10:55 AM Reporting Lab: [address] [address] Performing Lab: [address] [address] [facility] CBC LEUKOCYTES [#/VOLUME] IN BLOOD BY AUTOMATED COUNT 4.7 10*3/u L 3.6 - 11.2 03/18 Specimen Type: BLOOD No comment entered. Ordering Provider: Nicanor KENNEDY Report Released Date/Time: Mar 18, 2024 10:55 AM Reporting Lab: [facility] [address] [place] [phone] Performing Lab: [address] [address] [facility] CBC ERYTHROCYTE S [#/VOLUME] IN BLOOD BY AUTOMATED COUNT 4.62 10*6/u L 4.10 - 5.70 03/18 Specimen Type: BLOOD No comment entered. Ordering Provider: Nicanor KENNEDY Report Released Date/Time: Mar 18, 2024 10:55 AM Reporting Lab: [place] [phone] Performing Lab: [address] [facility] CBC HEMOGLOBIN [MASS/VOLUM E] IN BLOOD 14.3 g/dL 13.1 - 16.8 03/18 Specimen Type: BLOOD No comment entered. Ordering Provider: Nicanor KENNEDY Report Released Date/Time: Mar 18, 2024 10:55 AM Reporting Lab: [place] [address] Performing Lab: [address] [facility] CBC HEMATOCRIT [VOLUME FRACTION] OF BLOOD 42.9 38.2 - 48.4 03/18 Specimen Type: BLOOD No comment entered. Ordering Provider: Nicanor KENNEDY Report Released Date/Time: Mar 18, 2024 10:55 AM Reporting Lab: [place] [address] Performing Lab: [address] [phone] [place] [address] [facility] CBC MCV [ENTITIC VOLUME] BY AUTOMATED COUNT 92.9 fL 80.0 - 100.0 03/18 Specimen Type: BLOOD No comment entered. Ordering Provider: Nicanor KENNEDY Report Released Date/Time: Mar 18, 2024 10:55 AM Reporting Lab: [place] [address] Performing Lab: [address] [facility] CBC MCH [ENTITIC MASS] BY AUTOMATED COUNT 31.0 pg 27.0 - 34.0 03/18 Specimen Type: BLOOD No comment entered. Ordering Provider: Nicanor KENNEDY Report Released Date/Time: Mar 18, 2024 10:55 AM Reporting Lab: [facility] [address] [place] [address] Performing Lab: [facility] [address] [place] [phone] [place] [address] [facility] CBC MCHC [MASS/VOLUM E] BY AUTOMATED COUNT 33.3 g/dL 33.0 - 36.0 03/18 Specimen Type: BLOOD No comment entered. Ordering Provider: Nicanor KENNEDY Report Released Date/Time: Mar 18, 2024 10:55 AM Reporting Lab: [facility] [address] [place] [address] Performing Lab: [address] [facility] CBC PLATELETS [#/VOLUME] IN BLOOD BY AUTOMATED COUNT 237 10*3/u L 150 - 400 03/18 Specimen Type: BLOOD No comment entered. Ordering Provider: Nicanor KENNEDY Report Released Date/Time: Mar 18, 2024 10:55 AM Reporting Lab: [facility] [address] [place] [address] Performing Lab: [facility] [address] [place], [place] [id number] [facility] CBC PLATELET MEAN VOLUME [ENTITIC VOLUME] IN BLOOD BY AUTOMATED COUNT 10.6 fL 7.5 - 11.2 03/18 Specimen Type: BLOOD No comment entered. Ordering Provider: Nicanor KENNEDY Report Released Date/Time: Mar 18, 2024 10:55 AM Reporting Lab: [facility] [address] [place] [address] Performing Lab: [facility] [address] [place] [address] [facility] CBC ERYTHROCYTE DISTRIBUTIO N WIDTH [RATIO] BY AUTOMATED COUNT 12.2 11.8 - 15.1 03/18 Specimen Type: BLOOD No comment entered. Ordering Provider: Nicanor KENNEDY Report Released Date/Time: Mar 18, 2024 10:55 AM Reporting Lab: [facility] [address] [address] Performing Lab: [facility] [address] [address] [facility] CBC LYMPHOCYTES /100 LEUKOCYTES IN BLOOD BY AUTOMATED COUNT 30 03/18 Specimen Type: BLOOD No comment entered. Ordering Provider: Nicanor KENNEDY Report Released Date/Time: Mar 18, 2024 10:55 AM Reporting Lab: [facility] [address] [address] Performing Lab: [facility] [address] [place] [phone] [facility] CBC MONOCYTES/1 00 LEUKOCYTES IN BLOOD BY AUTOMATED COUNT 8 03/18 Specimen Type: BLOOD No comment entered. Ordering Provider: Nicanor KENNEDY Report Released Date/Time: Mar 18, 2024 10:55 AM Reporting Lab: [facility] [address] [place] [phone] Performing Lab: [facility] [address] [place] [phone] [facility] CBC NEUTROPHILS /100 LEUKOCYTES IN BLOOD BY AUTOMATED COUNT 58 03/18 Specimen Type: BLOOD No comment entered. Ordering Provider: Nicanor KENNEDY Report Released Date/Time: Mar 18, 2024 10:55 AM Reporting Lab: [facility] [address] [place] [phone] Performing Lab: [facility] [address] [place] [phone] [facility] CBC EOSINOPHILS /100 LEUKOCYTES IN BLOOD BY AUTOMATED COUNT 3 03/18 Specimen Type: BLOOD No comment entered. Ordering Provider: Nicanor KENNEDY Report Released Date/Time: Mar 18, 2024 10:55 AM Reporting Lab: [facility] [address] [place] [phone] Performing Lab: [facility] [address] [address] [facility] CBC BASOPHILS/1 00 LEUKOCYTES IN BLOOD BY AUTOMATED COUNT 1 03/18 Specimen Type: BLOOD No comment entered. Ordering Provider: Nicanor KENNEDY Report Released Date/Time: Mar 18, 2024 10:55 AM Reporting Lab: [address] [address] Performing Lab: [address] [address] [facility] CBC LYMPHOCYTES [#/VOLUME] IN BLOOD BY AUTOMATED COUNT 1.42 10*3/u L 0.77 - 4.50 03/18 Specimen Type: BLOOD No comment entered. Ordering Provider: Nicanor KENNEDY Report Released Date/Time: Mar 18, 2024 10:55 AM Reporting Lab: [address] [address] Performing Lab: [address] [address] [facility] CBC MONOCYTES [#/VOLUME] IN BLOOD BY AUTOMATED COUNT 0.38 10*3/u L 0.19 - 0.80 03/18 Specimen Type: BLOOD No comment entered. Ordering Provider: Nicanor KENNEDY Report Released Date/Time: Mar 18, 2024 10:55 AM Reporting Lab: [address] [address] Performing Lab: [address] [address] [facility] CBC NEUTROPHILS [#/VOLUME] IN BLOOD BY AUTOMATED COUNT 2.72 10*3/u L 2.10 - 8.00 03/18 Specimen Type: BLOOD No comment entered. Ordering Provider: Nicanor KENNEDY Report Released Date/Time: Mar 18, 2024 10:55 AM Reporting Lab: [address] [address] Performing Lab: [address] [phone] [place] [address] [facility] CBC EOSINOPHILS [#/VOLUME] IN BLOOD BY AUTOMATED COUNT 0.13 10*3/u L 0.00 - 0.60 03/18 Specimen Type: BLOOD No comment entered. Ordering Provider: Nicanor KENNEDY Report Released Date/Time: Mar 18, 2024 10:55 AM Reporting Lab: [place] [address] Performing Lab: [address] [facility] CBC BASOPHILS [#/VOLUME] IN BLOOD BY AUTOMATED COUNT 0.06 10*3/u L 0.00 - 0.20 03/18 Specimen Type: BLOOD No comment entered. Ordering Provider: Nicanor KENNEDY Report Released Date/Time: Mar 18, 2024 10:55 AM Reporting Lab: [place] [address] Performing Lab: [address] [facility] TSH W/ REFLEX FT4 (STL) THYROTROPIN [UNITS/VOLU ME] IN SERUM OR PLASMA 0.605 u[IU]/ mL 0.47 - 5 03/18 Specimen Type: PLASMA No comment entered. Ordering Provider: Nicanor KENNEDY Report Released Date/Time: Mar 18, 2024 10:55 AM Reporting Lab: [place] [address] Performing Lab: [address] [facility] VITAMIN D, 25-HYDROXY 25-HYDROXYV ITAMIN D3 [MASS/VOLUM E] IN SERUM OR PLASMA 35.9 ng/mL 30 - 96 03/18 Specimen Type: SERUM No comment entered. Ordering Provider: Nicanor KENNEDY Report Released Date/Time: Mar 18, 2024 10:55 AM Reporting Lab: [place] [address] Performing Lab: [address] [address] [facility] LIPID PANEL (STL) CHOLESTEROL [MASS/VOLUM E] IN SERUM OR PLASMA 219 mg/dL 0 - 200 03/18 H Specimen Type: PLASMA No comment entered. Ordering Provider: Nicanor KENNEDY Report Released Date/Time: Mar 18, 2023 09:16 AM Reporting Lab: [address] [address] Performing Lab: [address] [address] [facility] LIPID PANEL (STL) TRIGLYCERID E [MASS/VOLUM E] IN SERUM OR PLASMA 129 mg/dL 0 - 150 03/18 Specimen Type: PLASMA No comment entered. Ordering Provider: Nicanor KENNEDY Report Released Date/Time: Mar 18, 2023 09:16 AM Reporting Lab: [address] [address] Performing Lab: [address] [address] [facility] LIPID PANEL (STL) CHOLESTEROL IN LDL [MASS/VOLUM E] IN SERUM OR PLASMA BY CALCULATION 144 mg/dL 03/18 Specimen Type: PLASMA No comment entered. Ordering Provider: Nicanor KENNEDY Report Released Date/Time: Mar 18, 2023 09:16 AM Reporting Lab: [address] [address] Performing Lab: [address] [address] [facility] LIPID PANEL (STL) CHOLESTEROL IN HDL [MASS/VOLUM E] IN SERUM OR PLASMA 49 mg/dL 03/18 Specimen Type: PLASMA No comment entered. Ordering Provider: Nicanor KENNEDY Report Released Date/Time: Mar 18, 2023 09:16 AM Reporting Lab: [address] [address] Performing Lab: [address] [phone] [facility] HGA1C HEMOGLOBIN A1C/HEMOGLO BIN.TOTAL IN BLOOD 5.7 4.0 - 6.0 03/18 Specimen Type: BLOOD No comment entered. Ordering Provider: Nicanor KENNEDY Report Released Date/Time: Mar 18, 2023 09:16 AM Reporting Lab: [place] [phone] Performing Lab: [place] [phone] [facility] TSH (MA-PB-STL ) THYROTROPIN [UNITS/VOLU ME] IN SERUM OR PLASMA 0.921 u[IU]/ mL 0.47 - 5 03/18 Specimen Type: SERUM No comment entered. Ordering Provider: Nicanor KENNEDY Report Released Date/Time: Mar 18, 2023 09:16 AM Reporting Lab: [place] [phone] Performing Lab: [place] [phone] [place] [address] [facility]OC COMPREHENS GUILLERMO METABOLIC PANEL CREATININE [MASS/VOLUM E] IN SERUM OR PLASMA 1.10 mg/dL 0.7 - 1.3 03/10 Specimen Type: PLASMA Comment: K result may show a positive bias due to hemolysis. Specimen slightly hemolyzed. Ordering Provider: NARINDER CARSON Report Released Date/Time: Mar 10, 2023 01:44 PM Reporting Lab: [address] [address] Performing Lab: [address] [phone] COMPREHENS GUILLERMO METABOLIC PANEL UREA NITROGEN [MASS/VOLUM E] IN SERUM OR PLASMA 8 mg/dL 9 - 25 03/10 L Specimen Type: PLASMA Comment: K result may show a positive bias due to hemolysis. Specimen slightly hemolyzed. Ordering Provider: NARINDER CARSON Report Released Date/Time: Mar 10, 2023 01:44 PM Reporting Lab: [facility] [address] [facility] [address] Performing Lab: [facility] [address] [facility] [address] [facility] COMPREHENS GUILLERMO METABOLIC PANEL GLUCOSE [MASS/VOLUM E] IN SERUM OR PLASMA 84 mg/dL 72 - 99 03/10 Specimen Type: PLASMA Comment: K result may show a positive bias due to hemolysis. Specimen slightly hemolyzed. Ordering Provider: NARINDER CARSON Report Released Date/Time: Mar 10, 2023 01:44 PM Reporting Lab: [facility] [address] [facility] [address] Performing Lab: [facility] [address] [facility] [address] [facility] COMPREHENS GUILLERMO METABOLIC PANEL SODIUM [MOLES/VOLU ME] IN SERUM OR PLASMA 142 meq/L 136 - 145 03/10 Specimen Type: PLASMA Comment: K result may show a positive bias due to hemolysis. Specimen slightly hemolyzed. Ordering Provider: NARINDER CARSON Report Released Date/Time: Mar 10, 2023 01:44 PM Reporting Lab: [facility] [address] [facility] [address] Performing Lab: [facility] [address] [facility] [address] [facility] COMPREHENS GUILLERMO METABOLIC PANEL POTASSIUM [MOLES/VOLU ME] IN SERUM OR PLASMA 4.4 meq/L 3.5 - 5 03/10 Specimen Type: PLASMA Comment: K result may show a positive bias due to hemolysis. Specimen slightly hemolyzed. Ordering Provider: NARINDER CARSON Report Released Date/Time: Mar 10, 2023 01:44 PM Reporting Lab: [facility] [address] [facility] [place] [address] Performing Lab: [facility] [address] [facility] [place] [address] [facility] COMPREHENS GUILLERMO METABOLIC PANEL CHLORIDE [MOLES/VOLU ME] IN SERUM OR PLASMA 107 meq/L 98 - 107 03/10 Specimen Type: PLASMA Comment: K result may show a positive bias due to hemolysis. Specimen slightly hemolyzed. Ordering Provider: NARINDER CARSON Report Released Date/Time: Mar 10, 2023 01:44 PM Reporting Lab: [facility] [address] [facility] [place] [address] Performing Lab: [facility] [address] [facility] [facility] [place] [address] [facility] COMPREHENS GUILLERMO METABOLIC PANEL CARBON DIOXIDE, TOTAL [MOLES/VOLU ME] IN SERUM OR PLASMA 25 meq/L 22 - 31 03/10 Specimen Type: PLASMA Comment: K result may show a positive bias due to hemolysis. Specimen slightly hemolyzed. Ordering Provider: NARINDER CARSON Report Released Date/Time: Mar 10, 2023 01:44 PM Reporting Lab: [place] [address] [facility] [address] Performing Lab: [facility] [address] [facility] [address] [facility] COMPREHENS GUILLERMO METABOLIC PANEL CALCIUM [MASS/VOLUM E] IN SERUM OR PLASMA 9.1 mg/dL 8.4 - 10.4 03/10 Specimen Type: PLASMA Comment: K result may show a positive bias due to hemolysis. Specimen slightly hemolyzed. Ordering Provider: NARINDER CARSON Report Released Date/Time: Mar 10, 2023 01:44 PM Reporting Lab: [facility] [address] [facility] [address] Performing Lab: [facility] [address] [facility] [address] [facility] COMPREHENS GUILLERMO METABOLIC PANEL PROTEIN [MASS/VOLUM E] IN SERUM OR PLASMA 6.9 g/dL 6 - 8.6 03/10 Specimen Type: PLASMA Comment: K result may show a positive bias due to hemolysis. Specimen slightly hemolyzed. Ordering Provider: NARINDER CARSON Report Released Date/Time: Mar 10, 2023 01:44 PM Reporting Lab: [facility] [address] [facility] [place] [address] Performing Lab: [facility] [address] [facility] [place] [address] [facility] COMPREHENS GUILLERMO METABOLIC PANEL ALBUMIN [MASS/VOLUM E] IN SERUM OR PLASMA 4.2 g/dL 3.4 - 5 03/10 Specimen Type: PLASMA Comment: K result may show a positive bias due to hemolysis. Specimen slightly hemolyzed. Ordering Provider: NARINDER CARSON Report Released Date/Time: Mar 10, 2023 01:44 PM Reporting Lab: [facility] [address] [facility] [place] [address] Performing Lab: [place] [address] [facility] [place] [address] [facility] COMPREHENS GUILLERMO METABOLIC PANEL BILIRUBIN.T OTAL [MASS/VOLUM E] IN SERUM OR PLASMA 0.5 mg/dL 0.2 - 1.2 03/10 Specimen Type: PLASMA Comment: K result may show a positive bias due to hemolysis. Specimen slightly hemolyzed. Ordering Provider: NARINDER CARSON Report Released Date/Time: Mar 10, 2023 01:44 PM Reporting Lab: [place] [address] [facility] [place] [address] Performing Lab: [facility] [address] [facility] [place] [address] [facility] COMPREHENS GUILLERMO METABOLIC PANEL ALKALINE PHOSPHATASE [ENZYMATIC ACTIVITY/VO LUME] IN SERUM OR PLASMA 83 U/L 40 - 150 03/10 Specimen Type: PLASMA Comment: K result may show a positive bias due to hemolysis. Specimen slightly hemolyzed. Ordering Provider: NARINDER CARSON Report Released Date/Time: Mar 10, 2023 01:44 PM Reporting Lab: [facility] [address] [facility] [place] [address] Performing Lab: [facility] [address] [facility] [place] [address] [facility] COMPREHENS GUILLERMO METABOLIC PANEL ASPARTATE AMINOTRANSF ERASE [ENZYMATIC ACTIVITY/VO LUME] IN SERUM OR PLASMA 31 U/L 5 - 34 03/10 Specimen Type: PLASMA Comment: K result may show a positive bias due to hemolysis. Specimen slightly hemolyzed. Ordering Provider: NARINDER CARSON Report Released Date/Time: Mar 10, 2023 01:44 PM Reporting Lab: [facility] [address] [facility] [place] [address] Performing Lab: [facility] [address] [facility] [place] [phone] [place] [address] COMPREHENS GUILLERMO METABOLIC PANEL ALANINE AMINOTRANSF ERASE [ENZYMATIC ACTIVITY/VO LUME] IN SERUM OR PLASMA 33 U/L 8 - 40 03/10 Specimen Type: PLASMA Comment: K result may show a positive bias due to hemolysis. Specimen slightly hemolyzed. Ordering Provider: NARINDER CARSON Report Released Date/Time: Mar 10, 2023 01:44 PM Reporting Lab: [facility] [address] [facility] [place] [address] Performing Lab: [facility] [address] [facility] [place] [phone] [place] [address] COMPREHENS GUILLERMO METABOLIC PANEL GLOMERULAR FILTRATION RATE/1.73 SQ M.PREDICTED [VOLUME RATE/AREA] IN SERUM, PLASMA OR BLOOD BY CREATININE- BASED FORMULA (CKD-EPI 2020) 89.8 03/10 Specimen Type: PLASMA Comment: K result may show a positive bias due to hemolysis. Specimen slightly hemolyzed. Ordering Provider: NARINDER CARSON Report Released Date/Time: Mar 10, 2023 01:44 PM Reporting Lab: [facility] [address] [address] Performing Lab: [facility] [address] [facility] [place] [address] [facility] Vital Signs Combined list of inpatient and outpatient Vital Signs from Department of Defense and Veterans Affairs, ranging from 12 months to all on record, depending upon the facility. Vital Sign Value Date Comments Source SYSTOLIC BLOOD PRESSURE 122 03/18/2024 10:28:33 [facility] DIASTOLIC BLOOD PRESSURE 81 03/18/2024 10:28:33 [facility] PULSE OXIMETRY 98 03/18/2024 10:28:[facility] WEIGHT 167.2 03/18/2024 10:28:[facility] BMI 22 kg/m2 03/18/2024 10:28:[facility] PAIN 2 03/18/2024 10:28:[facility] HEIGHT 74 03/18/2024 10:28:[facility] TEMPERATURE 97.6 03/18/2024 10:28:33 [facility] PULSE 77 03/18/2024 10:28:[facility] RESPIRATION 18 03/18/2024 10:28:33 [facility] Encounters Combined list of: 1) Encounters from Department of Veterans Affairs facilities going backup to the last 18 months, not all VA inpatient encounters are included; 2) Encounters from the Department of Defense facilities going backup to 280 months. Location Location Details Encounter Type Encounter Number Reason For Visit Attending Provider ADM Date DC Date Status Disposition Source [facility]( art Team 1007) OUTPATIENT [id number] HARVEY BAPTISTE 07/08 Released with Work/Duty Limitations [facility]( Smart Team 1007) [facility]( art Team 1007) OUTPATIENT [id number] lft knee pain MIKE FORD 07/22 Released with Work/Duty Limitations [facility]( Smart Team 1007) [facility] Sick Call [facility] 237) OUTPATIENT [id number] L knee BEN BARNETT 08/26 Released with Work/Duty Limitations [facility] [place]( Militar y Sick Call [facility] 237) [facility] [place](Al litary Sick Call [facility] 237) OUTPATIENT [id number] left knee AARTI STOVER 09/15 Released w/o Limitations [facility]itary Sick Call [place] [address]) OUTPATIENT [id number] pt c/o N/V. GUSTAVO SAMAYOA 09/16 Sick at Home/Quarter s [facility](Al [facility]itary Sick Call [facility] 237) OUTPATIENT [id number] f/u streap throat PRAMOD ARAUJO 10/03 Released w/o Limitations [facility]( Militar y Sick Call [facility] 237) [facility](Al [place]itary Sick Call [place] [address]) OUTPATIENT [id number] pt c/o left knee pain since bootcam p. AARTI STOVER 10/10 Released with Work/Duty Limitations [facility] [place] [address]) [facility](Al [place]itary Sick Call [place] [address]) OUTPATIENT [id number] knee f/u AARTI STOVER 10/20 Released with Work/Duty Limitations [facility]( [facility] [place] [address]) [facility]([place]itary Sick Call [place] [address]) OUTPATIENT [id number] eval for ffd GUSTAVO SAMAYOA 10/24 Released with Work/Duty Limitations [facility]( [facility]) [facility](Al [place]itary Sick Call [place] [address]) OUTPATIENT [id number] sore throat AARTI STOVER 10/29 Sick at Home/Quarter s [facility] 237) [facility](Al [place]itary Sick Call [place] [address]) OUTPATIENT [id number] f/u strep AARTI STOVER 10/30 Released w/o Limitations [facility]) [facility](Al [place]itary Sick Call [place] [address]) OUTPATIENT [id number] f/u L knee AARTI STOVER 11/18 Released w/o Limitations [facility]( Militar y Sick Call [facility] 237) [facility](Ph ysical Therapy/2 37) OUTPATIENT [id number] BRET VILLA 11/21 Released with Work/Duty Limitations [facility]( Physica l Therapy /237) [facility] OUTPATIENT [id number] PHYSICA L GUSTAVO VALLE 03/19 Released w/o Limitations [facility] OUTPATIENT [id number] RITCHIE JULES 03/19 Released w/o Limitations [facility] OUTPATIENT [id number] KOMAL SYED 03/19 Released w/o Limitations [facility]( [facility] OUTPATIENT [id number] SUB PHYS TAMIA DRUMMOND 03/31 Released w/o Limitations [facility](Gr [facility]ton Immunizat ion) OUTPATIENT [id number] Immuniz ations SAM PIRES E 04/08 Released w/o Limitations [facility]( [facility]) OUTPATIENT [id number] SUB DUTY PE SIMON EDMONDSON 05/01 Released with Work/Duty Limitations [facility] OUTPATIENT [id number] mental health clearan SIMON Rosario 07/14 Released with Work/Duty Limitations [facility] OUTPATIENT [id number] R Hand injury LIZETH JENKINS 07/17 Released with Work/Duty Limitations [facility]) OUTPATIENT [id number] ppd/flu mist PASQUALE PLASCENCIA 08/28 Released w/o Limitations [facility](Imm unizati ons [facility] ) [facility](Immuniz ations [facility]) OUTPATIENT [id number] ppd read JAZZ DAVIS 08/31 Released w/o Limitations [facility](Imm unizati ons [facility] ) [facility] ER, DIRECT TO [facility] [id number] ANA HANLEY Nicanor 01/15 RETURNED TO DUTY [facility](Nutriti on [facility]) INPATIENT [id number] CHIDI Sterling 01/19 Inpatient- Still a Patient [facility](Nut rition [facility]) [facility](Nutriti on [facility]) INPATIENT [id number] TF f/u CHIDI ROBERT 01/24 Inpatient- Still a Patient [facility](Nut rition [facility]) [facility](Infecti ous Disease [facility]) INPATIENT [id number] TETO GARCÍA 01/26 Inpatient- Still a Patient [facility](Inf ectious Disease [facility]) [facility](Nutriti on [facility]) INPATIENT [id number] TF f/u CHIDI ROBERT 01/27 Inpatient- Still a Patient [facility](Nut rition [facility]) [facility](Infecti ous Disease [facility]) INPATIENT [id number] ELIEL TANG 01/27 Inpatient- Still a Patient [facility](Inf ectious Disease [facility]) [facility](Cardiol ogy [facility]) INPATIENT [id number] LUZMARIA Gaming 01/28 Inpatient- Still a Patient [facility](Car diology [facility]) [facility](Social Work [facility]) INPATIENT [id number] Psycho- social assessm ent HECTOR DODGE 02/03 Inpatient- Still a Patient [facility](Soc ial Work [facility]) [facility](Speech Pathology [facility]) INPATIENT [id number] Evaluat e for Ki Reilly Angela smith Valve JENNIFERALLISONShalom Hernandez 02/07 Inpatient- Still a Patient [facility](Spe ech Patholo gy [facility]) [facility](Speech Pathology [facility]) INPATIENT [id number] AVM JENNIFERALLISONA H 02/08 Inpatient- Still a Patient [facility](Spe ech Patholo gy [facility]) [facility](Speech Pathology [facility]) INPATIENT [id number] JENNIFER ODALIS H 02/09 Inpatient- Still a Patient [facility](Spe ech Patholo gy [facility]) [facility](Speech Pathology [facility]) INPATIENT [id number] JENNIFERALLISONA H 02/10 Inpatient- Still a Patient [facility](Spe ech Patholo gy [facility]) [facility](Occ Therapy [facility]) [facility] [id number] [facility] Inpatient- Still a Patient [facility](Occ Therapy [facility]) [facility] [id number] [facility]14 [facility]patient- [facility] a Patient [facility] Therapy [facility]) [facility] [id number] [facility]- [facility](Occ Therapy [facility]) [facility](Nutriti [facility]) INPATIENT [id number] GALAYOLANDA A 02/15 Inpatient- Still a Patient [facility](Nut rition [facility]) [facility](Occ Therapy [facility]) INPATIENT [id number] [facility] 02/16 Inpatient- Still a Patient [facility](Occ Therapy [facility]) [facility](Speech Pathology [facility]) INPATIENT [id number] Re assess Swallow functio n ODALIS RODRIGUEZ H 02/16 Inpatient- Still a Patient [facility]) INPATIENT [id number] inp JAZZ Moe 02/16 Inpatient- Still a Patient [facility] [facility] [place] [facility](Occ Therapy NMCP) [facility] [place] [facility](Speech Pathology NMCP) INPATIENT [id number] ODALIS RODRIGUEZ H 02/16 Inpatient- Still a Patient [facility] [place] [facility](Spe ech Patholo gy NMCP) [facility] [place] [facility](Speech Pathology NMCP) INPATIENT [id number] Dysphag ia tx ODALIS RODRIGUEZ H 02/17 Inpatient- [facility] Facility [facility] [place] [facility](Spe ech Patholo gy NMCP) [facility] [place] [facility](Case Managemen t [facility] [place] [facility] OUTPATIENT [id number] CASE MANAGEM ENT LONG, IVANNA S 03/08 Released w/o Limitations [facility] [place] [facility](Dajuan e Managem ent [facility] [place] [facility] [place] [facility](Case Managemen t [facility] [place] [facility] OUTPATIENT [id number] CASE MANAGEM ENT LONG, IVANNA S 03/09 Released w/o Limitations [facility] [place] [facility](Dajuan e Managem ent [facility] [place] [facility] [place] [facility](Case Mgmt Active Duty (AD)) OUTPATIENT [id number] CASE MANAGEM ENT LONG, IVANNA S 03/10 Released w/o Limitations [facility] [place] [facility](Dajuan e Mgmt Active Duty (AD)) [facility] [place] [facility](Case Mgmt Active Duty (AD)) OUTPATIENT [id number] LONG, IVANNA S 03/14 Released w/o Limitations [facility] [place] [facility](Dajuan e Mgmt Active Duty (AD)) [facility] [place] [facility](Case Mgmt Active Duty (AD)) OUTPATIENT [id number] CASE MANAGEM ENT LONG, IVANNA S 03/15 Released w/o Limitations [facility](Dajuan e Mgmt Active Duty (AD)) [facility] [place] [facility](Case Managemen t [facility] [place] [facility] OUTPATIENT [id number] CASE MANAGEM ENT LONG, IVANNA S 03/17 Released w/o Limitations [facility] [place] [facility](Dajuan e Managem ent [facility] [place] [facility] [place] [facility](Case Mgmt Active Duty (AD)) OUTPATIENT [id number] CASE MANAGEM ENT IVANNA CORTÉS S 03/18 Released w/o Limitations [facility] [place] [facility](Dajuan e Mgmt Active Duty (AD)) [facility] [place] [facility](Neurosu rgery NMCP) OUTPATIENT [id number] preangi o for 04/11/dc from [facility]/ia n leave ANA HANLEY 03/25 Released w/o Limitations [facility] [place] [facility](William rosurge ry NMCP) [facility] [place] [facility]) OUTPATIENT [id number] bump under R armpit x 3 days MARYLU HODGES 04/05 Released w/o Limitations [facility] [place] [facility] NM [place] [facility] DIRECT TO MTF FROM OTHER THAN ER OR [facility] [id number] EDUIN TORRES RACHEL 04/11 [employer] [facility] [place] [facility] [place] [facility](Neurosu rgery NMCP) OUTPATIENT [id number] f/u after angiogr am 04/11 ANA HANLEY 04/14 Released w/o Limitations [facility] [place] [facility](William rosurge ry NMCP) [facility] [place] [facility] ADMISSION RESULTING FROM [facility], DIRECT TO MTF [id number] ANA HANLEY 04/19 RETURNED TO DUTY [facility] [place] [facility] [place] [facility](Neurosu rgery NMCP) TELE CONSULT [id number] please call pt post surgery . Dr.Cobe brown, perform ed surgery 2 weeks ago. CHELSEA NEAL 05/06 [facility] [place] [facility](William rosurge ry NMCP) [facility] [place] [facility](Case Managemen t [facility] [place]) OUTPATIENT [id number] Case Managem ent IVANNA CORTÉS S 05/06 Released w/o Limitations [facility] [place] [facility](Dajuan e Managem ent [facility] [place] [facility] [place] [facility](Neurosu rgery NMCP) TELE CONSULT [id number] pt would like for you to call him back, did not give details as to why. CHELSEA NEAL 05/23 [facility](William rosurge ry NMCP) [facility] [place] [facility](Neurosu rgery NMCP) OUTPATIENT [id number] 1st post op f/u; no xrays ANA HANLEY 05/31 Released w/o Limitations [facility](William rosurge ry NMCP) [facility] [place] [facility](Neurosu rgery NMCP) TELE CONSULT [id number] QUESTIO N FOR YOU CHELSEA NEAL 06/22 [facility](William rosurge ry NMCP) [facility] [place] [facility] [facility]) OUTPATIENT [id number] c/o hang nail ingrown on lt foot 3 wks ANUJ BONE 06/28 Released w/o Limitations [facility] ) [facility] [place] [facility](Neurosu rgery NMCP) TELE CONSULT [id number] Med board CHELSEA NEAL 07/22 [facility](William rosurge ry NMCP) [facility] [place] [facility](Neurosu rgery NMCP) TELE CONSULT [id number] Questio n CHELSEA NEAL 08/03 [facility](William rosurge ry NMCP) [facility] [place] [facility] (Case Mgmt Active Duty (AD)) OUTPATIENT [id number] Case Managem ent IVANNA CORTÉS S 08/16 Released w/o Limitations [facility] [place] [facility](Dajuan e Mgmt Active Duty (AD)) [facility] [place] [facility] [facility](Case Mgmt Active Duty (AD)) OUTPATIENT [id number] Case Managem ent IVANNA CORTÉS S 08/17 Released w/o Limitations [facility] [place] [facility](Dajuan e Mgmt Active Duty (AD)) [facility] [place] [facility](Case Mgmt Active Duty (AD)) OUTPATIENT [id number] Case Managem ent IVANNA CORTÉS S 08/18 Released w/o Limitations [facility](Dajuan e Mgmt Active Duty (AD)) [facility] [place] [facility](Case Mgmt Active Duty (AD)) OUTPATIENT [id number] Case Managem ent IVANNA CORTÉS S 08/19 Released w/o Limitations [facility](Dajuan e Mgmt Active Duty (AD)) [facility] [place] [facility] [facility]) OUTPATIENT [id number] poss strep throat 2 days. TAMIA BALTAZAR 08/26 Released w/o Limitations [facility] [place] [facility] [place] [facility]) OUTPATIENT [id number] sore throat, weaknes s x 8 days; already seen but not better DAKOTA MCCORMICK 09/01 Released w/o Limitations [facility] ) [facility] [place] [facility](Hearing [facility] [employer]) OUTPATIENT [id number] PAL MCLEOD 09/05 Released w/o Limitations [facility](Hea ring Cons [facility]) [facility] [place] [facility](Immuniz ations [facility]) OUTPATIENT [id number] ppd/flu mist KAREEN ARMENDARIZ 09/05 Released w/o Limitations [facility](Imm unizati ons [facility] ) [facility] [place] [facility](Case Mgmt Active Duty (AD)) OUTPATIENT [id number] Case Managem ent IVANNA CORTÉS S 09/05 Released w/o Limitations [facility](Dajuan e Mgmt Active Duty (AD)) [facility] [place] [facility] [id number] ppd check JESSICA SOSA 09/07 Released w/o Limitations [facility](Imm unizati ons [facility] ) [facility] [place] [facility](Neurosu rgery NMCP) OUTPATIENT [id number] f/u EDUIN TORRES 10/04 Released with Work/Duty Limitations [facility](William rosurge ry NMCP) [facility] [place] [facility] [place]) OUTPATIENT [id number] part 2 [place] [place] [facility] Silvia 10/06 Released w/o Limitations [facility] [place] [facility] [place]) [facility] [place] [facility](Neurosu rgery NMCP) TELE CONSULT [id number] DR. HANLEY PATIENT CHELSEA NEAL 10/20 [facility] [place]([facility]surge ry NMCP) [facility] [place] [facility](Case Mgmt Active Duty (AD)) OUTPATIENT [id number] Case Managem ent IVANNA CORTÉS 10/26 Released w/o Limitations [facility](Dajuan e Mgmt Active Duty (AD)) [facility] [place] [facility](Occ Therapy NMCP) OUTPATIENT [id number] [facility] 10/26 Released w/o Limitations [facility] [place] [facility](Occ Therapy NMCP) [facility] [place] [facility](Occ Therapy NMCP) OUTPATIENT [id number] LILI MONTES 10/31 Released w/o Limitations [facility] [place] [facility](Occ Therapy NMCP) [facility] [place] [facility](Occ Therapy NMCP) OUTPATIENT [id number] PAULO CORTÉS 11/02 Released w/o Limitations [facility] [place] [facility](Occ Therapy NMCP) [facility] [place] [facility](Neurosu rgery NMCP) TELE CONSULT [id number] Letter CHELSEA NEAL 11/04 [facility](William rosurge ry NMCP) [facility] [place] [facility](Occ Therapy NMCP) OUTPATIENT [id number] PAULO CORTÉS 11/07 Released w/o Limitations [facility] [place](Occ Therapy [facility]) [facility] [place] [facility](Occ Therapy NMCP) OUTPATIENT [id number] LILI MONTES 11/09 Released w/o Limitations [facility] [place](Occ Therapy NM[facility]) [facility] [place] [facility](Neurosu rgery NMCP) OUTPATIENT [id number] EDUIN TORRES 11/10 Released with Work/Duty Limitations [facility] [place] [facility](William [facility]surge ry NMCP) [facility] [place] [facility]) OUTPATIENT [id number] Headach es since Sep 2008 DENISE BUSH Shalom 11/16 Released w/o Limitations [facility] [place] [facility](Mil AC [facility] ) [facility] [place] [facility](Neurosu rgery NMCP) TELE CONSULT [id number] dr torres patient . AHN SHAH 11/16 [facility] [place] [facility]William rosurge ry NMCP) [facility] [place] [facility](Occ Therapy NMCP) OUTPATIENT [id number] LILI OMNTES 11/17 Released w/o Limitations [facility] [place] [facility](Occ Therapy NMCP) [facility] [place] [facility](Neurosu rgery NMCP) TELE CONSULT [id number] pt status post brain hemmora ge now having difficu lt painful swallow ing. HAN SHAH 11/21 [facility] [place] [facility](William rosurge ry NMCP) [facility] [place] [facility](Occ Therapy NMCP) OUTPATIENT [id number] LILI MONTES 11/21 Released w/o Limitations [facility] [place] [facility](Occ Therapy NMCP) [facility] [place] [facility](Case Mgmt Active Duty (AD)) OUTPATIENT [id number] Case Managem ent IVANNA CORTÉS 11/23 Released w/o Limitations [facility] [place] [facility](Dajuan e Mgmt Active Duty (AD)) [facility] [place] [facility](Occ Therapy NMCP) OUTPATIENT [id number] PAULO CORTÉS 11/23 Released w/o Limitations [facility] [place] [facility]Occ Therapy NMCP) [facility] [place] [facility]) OUTPATIENT [id number] H/A since Sep ZAINAB SHETH 11/24 Released w/o Limitations [facility] [place] [facility] ) [facility] [place] [facility](Occ Therapy NMCP) OUTPATIENT [id number] MEREDITH ABDULLAHI 11/25 Released w/o Limitations [facility] [place] [facility]Occ [facility] NMCP) [facility] [place] [facility](Case Mgmt Active Duty (AD)) OUTPATIENT [id number] Case Managem ent IVANNA CORTÉS S 12/26 Released w/o Limitations [facility] [place](Dajuan e Mgmt Active Duty (AD)) [facility] [place] [facility](Neurosu rgery NMCP) TELE CONSULT [id number] Hi patient CHELSEA NEAL 01/19 [facility] [place] [facility] [facility](William rosurge ry NMCP) [facility] [place] [facility](Case Mgmt Active Duty (AD)) OUTPATIENT [id number] Case Managem IVANNA Slade S 01/23 Released w/o Limitations [facility] [place](Dajuan e Mgmt Active Duty (AD)) [facility] [place] [facility](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) OUTPATIENT [id number] 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 LATONYA MARADIAGA 02/02 Released w/o Limitations [facility] [place] [employer] ) [facility] [place] [facility](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[employer] NMCP) OUTPATIENT [id number] RENEE GREENWOOD 02/16 Released w/o Limitations [facility] [place](Phy s Ther Aquatic Team NMCP) [facility] [place] [facility](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) OUTPATIENT [id number] HARVEY KONG 02/24 Released w/o Limitations [facility] [place] [employer] ) [facility] [place] [facility](Case Mgmt Active Duty (AD)) OUTPATIENT [id number] Case Managem IVANNA Slade S 02/24 Released w/o Limitations [facility] [place](Dajuan e Mgmt Active Duty (AD)) [facility] [place](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) OUTPATIENT [id number] NORAH JIMENEZ V 02/28 Released w/o Limitations [facility] [place] [employer] ) [facility] [place] [facility](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) OUTPATIENT [id number] HARVEY KONG 03/01 Released w/o Limitations [facility] [place] [employer] ) [facility] [place] [facility](Case Mgmt Active Duty (AD)) OUTPATIENT [id number] Case Managem IVANNA Slade S 03/03 Released w/o Limitations [facility] [place](Dajuan e Mgmt Active Duty (AD)) [facility] [place] [facility](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) OUTPATIENT [id number] HARVEY KONG 03/06 Released w/o Limitations [facility] [place] [employer] ) [facility] [place] [facility](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) OUTPATIENT [id number] HARVEY KONG 03/13 Released w/o Limitations [facility] [place] [employer] ) [facility] [place] [facility](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) OUTPATIENT [id number] DYLLAN JIMENEZICA V 03/14 Released w/o Limitations [facility] [place] [employer] ) [facility] [place] [facility](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) OUTPATIENT [id number] HARVEY KONG 03/15 Released w/o Limitations [facility] [place] [employer] [facility] [place](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) OUTPATIENT [id number] JIMENEZNORAH V 03/21 Released w/o Limitations [facility] [place] [employer] ) [facility] [place] [facility](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) OUTPATIENT [id number] AHRVEY KONG 03/27 Released w/o Limitations [facility] [place] [employer] ) [facility] [place] [facility](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) OUTPATIENT [id number] ELVIA JEFEFRS 04/12 Released w/o Limitations [facility] [place] [employer] ) [facility] [place] [facility](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) OUTPATIENT [id number] ELVIA JEFFERS 04/14 Released w/o Limitations [facility] [place] [employer] ) [facility] [place](Case Mgmt Active Duty (AD)) OUTPATIENT [id number] Case Managem ent IVANNA CORTÉS 04/17 Released w/o Limitations [facility] [place](Dajuan e Mgmt Active Duty (AD)) [facility] [place](Neurosu rgery NMCP) TELE CONSULT [id number] pt has shashank boucher medical board HAN SHAH 05/22 [facility](William rosurge ry NMCP) [facility] [place] [facility] OUTPATIENT [id number] f/u for med boards ANA HANLEY 05/24 Released w/o Limitations [facility](William rosurge ry NMCP) [facility] [place] [facility](Case Mgmt Active Duty (AD)) OUTPATIENT [id number] Case Managem ent IVANNA CORTÉS S 05/29 Released w/o Limitations [facility](Dajuan e Mgmt Active Duty (AD)) [facility] [place] [facility] [place] [facility] OUTPATIENT [id number] CHRIS Bartholomew S 06/01 Released w/o Limitations [facility](Phy s [facility] [place] [facility]) [facility](Hearing Cons [facility] [employer]) OUTPATIENT [id number] SIDNEY DICKERSON 06/01 Released w/o Limitations [facility](Hea ring Cons [facility] [employer]) [facility]) OUTPATIENT [id number] sore throat x 4 days MEREDITH PAGE 06/16 Sick at Home/Quarter s [facility] ) [facility](Neurosu rgery NMCP) TELE CONSULT [id number] prabhakar fontenot. would like to discuss med board. info cnt#[id number] ÁNGEL CHELSEA L 06/23 [facility](William rosurge ry NMCP) [facility](Case Mgmt Active Duty (AD)) OUTPATIENT [id number] Case Managem ent IVANNA CORTÉS S 08/01 Released w/o Limitations [facility](Dajuan e Mgmt Active Duty (AD)) [facility] [place]) OUTPATIENT [id number] RIGHT WRIST PAIN ZAINAB SHETH 08/02 Released w/o Limitations [facility] [place] ) [facility] [place] (Optomet ry [employer]) OUTPATIENT [id number] eye exam DOROTHY SUHN 08/04 Released w/o Limitations [facility](Opt ometry [place]) [facility](Immuniz ation NMCP) OUTPATIENT [id number] Adult Imms - Flumist LISA PRASAD N P 08/17 Released w/o Limitations [facility](Imm unizati on NMCP) [facility](Neurosu rgery NMCP) TELE CONSULT [id number] Dr.Cobe brown pt. Mrs. Harvey rubio of Med Boards request ing consult for pt. 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NMPS) OUTPATIENT [id number] TAMIA CARMONA 09/05 Released w/o Limitations [facility](Phy s Ther NMPS) [facility](Occ Therapy NMCP) OUTPATIENT [id number] AVM PAL Powell 09/12 Released w/o Limitations [facility](Occ Therapy NMCP) [facility](Case Mgmt Active Duty (AD)) OUTPATIENT [id number] Case Managem ent IVANNA CORTÉS 09/21 Released w/o Limitations [facility](Dajuan e Mgmt Active Duty (AD)) [facility] OUTPATIENT [id number] UPDATE LIMITED PROFILE FOR ZAINAB JACOME 11/01 Released w/o Limitations [facility](Immuniz ations [facility]) OUTPATIENT [id number] VACCINE S WILTON SILVA 11/15 Released w/o Limitations [facility](Imm unizati ons [facility] ) [facility](Immuniz ations [facility]) OUTPATIENT [id number] vaccine JESSICA SOSA D 11/21 Released w/o Limitations [facility](Imm unizati ons [facility] ) [facility]([place]) OUTPATIENT [id number] MEDICAL ASSIGNM ENT SCREEN (STANDB Y) KERRI TREJO 11/24 Released w/o Limitations [facility](Ove rseas Screeni ng [place] ) [facility] OUTPATIENT [id number] Pain in tonsils /throat , hot flashes IRENE FERGUSON 11/28 Released w/o Limitations [facility] ) [facility](Neurosu rgery NMCP) TELE CONSULT [id number] pt's CO would like to speak with Dr Hanley [id number] CHELSEA SHINE 11/30 [facility](William rosurge ry NMCP) [facility](Neurosu rgery NMCP) OUTPATIENT [id number] f/u ANA HANLEY 12/01 Released w/o Limitations [facility](William rosurge ry NMCP) [facility](Primary Care [facility]) OUTPATIENT [id number] R MAGAÑA PAIN ZAINAB SHETH T 12/05 Released w/o Limitations [facility] ) [facility](Case Mgmt Active Duty (AD)) OUTPATIENT [id number] Case Managem ent LONGIVANNA S 12/15 Released w/o Limitations [facility](Dajuan e Mgmt Active Duty (AD)) [facility](Immuniz ations [facility]) OUTPATIENT [id number] vaccine CIERA FOREMAN 01/09 Released w/o Limitations [facility](Imm unizati ons [facility] ) [facility]) OUTPATIENT [id number] Chest Pain EMMA WHALEY 01/17 Released w/o Limitations [facility] ) [facility]) OUTPATIENT [id number] Injured right foot during PT x 5 days AYAD JEAN oSn 02/21 Released w/o Limitations [facility] ) [facility]) OUTPATIENT [id number] f/u xray results ZAINAB SHETH 03/06 Released w/o Limitations [facility] ) [facility](Neurosu afshin NMCP) TELE CONSULT [id number] Dr Hanley Pt . needs form stating he can fly. [place] on 7[place]6 ÁNGEL, CHELSEA L 03/26 [facility](William rosurge ry NMCP) [facility]) OUTPATIENT [id number] sore throat EMMA WHALEY EDWARD 03/28 Released w/o Limitations [facility] ) [facility]) OUTPATIENT [id number] seen yesterd ay for sorethr oat today throat is worse BRENT HARRISON 03/29 Released w/o Limitations [facility] ) [facility](Immuniz ations [facility]) OUTPATIENT [id number] vaccine JAZZ DAVIS 05/09 Released w/o Limitations [facility](Imm unizati ons [facility] ) [facility](Primary Care Clinic [facility]) OUTPATIENT [id number] R FOOT EVALUAT ION ZAINAB SHETH 05/15 Released w/o Limitations [facility] ) [facility](Immuniz ations [facility]) OUTPATIENT [id number] vaccine KAREEN ARMENDARIZ 05/21 Released w/o Limitations [facility](Imm unizati ons [facility] ) [facility](Phys Exam [place] [facility]) OUTPATIENT [id number] SEPARAT ION PHYSICA L 745992 CHRIS CHONG 05/22 Released w/o Limitations [facility](Phy s Exam [place] [facility]) [facility](Neurosu rgery NMCP) TELE CONSULT [id number] Pt c/o of more frequen t paralys is, since surgery . 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 CASEHAN 08/01 [facility](William rosurge ry NMCP) [facility] Outpatient Encounter [id number] 05/23 [facility] En[facility] [id number] 05/29 [facility] Outpatient Encounter [id number] 07/05 [facility]P EST MOD 30 MIN [id number] Diagnos is: ICD-10- CM G40.89 Other seizure s Radha OSBORNE UAN 10/07 [facility] [facility] Outpatient Encounter [id number] 10/08 [facility] OFFICE O/P EST MOD 30 MIN [id number] Diagnos is: ICD-10- CM 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, site unspeci HARI Hale 12/29 [facility] Outpatient Encounter [id number] 03/16 [facility] Outpatient Encounter [id number] CHRISTINE SALDIVAR 03/18 [facility] OFFICE O/P EST LOW 20 MIN [id number] Diagnos is: ICD-10- CM Z00.00 Encntr for general adult medical exam w/o abnorma l finding s Nicanor KENNEDY L 03/18 [facility] Outpatient Encounter [id number] 04/07 [facility] Outpatient Encounter [id number] 07/13 [facility] Outpatient Encounter [id number] 09/09 [facility] Procedures Combined list of: 1) Procedures from Department of [facility] facilities going back up to thelast 18 months, not all VA non-surgical procedures are included; 2) All procedures from the Department of Defense facilities. Procedure Procedure Type Code Date Perfomer Comments Sourc e PT A e ment Kinetic Training PT Assessment Kinetic Training 24504 2007 JAZZ CARTER Patient Training And Self-Care Skills Patient Training And Self-Care Skills 40474 2007 JAZZ CARTER A isted Exercises For ROM Assisted Exercises For ROM 89907 2007 JAZZ CARTER Treatment Of Swallowing Dysfunction Treatment Of Swallowing Dysfunction 60114 2007 ODALIS RODRIGUEZ MD Supervised Individual Speech/Hearing Therapy 2007 ODALIS RODRIGUEZ Treatment Of Swallowing Dysfunction Treatment Of Swallowing Dysfunction 09676 2007 JENNIFER ODALIS H [facility] Tracheostomy speaking valve 2007 ALLISON RODRIGUEZShalom Hernandez [facility] Evaluation of Speech / Hearing Problem 2007 ALLISON RODRIGUEZShalom Hernandez [facility] Evaluation Of Swallowing And Oral Function Evaluation Of Swallowing And Oral Function 60682 2007 JENNIFERODALIS [facility] Tracheostomy speaking valve 2007 JENNIFER ODALIS H [facility] Health And Behav A e mt Each 15 Min Initial A e ment Health And Behav Assessmt Each 15 Min Initial Assessment 12484 2007 HECTOR DODGE [facility] Medical Nutrition Therapy Re-a e ment And Intervention Each 15 Minutes Medical Nutrition Therapy Re-assessment And Intervention Each 15 Minutes 04173 2007 CHIDI ROBERT [facility] Medical Nutrition Therapy Re-a e ment And Intervention Each 15 Minutes Medical Nutrition Therapy Re-assessment And Intervention Each 15 Minutes 94124 2007 CHIDI ROBERT [facility] Medical Nutrition Therapy Re-a e ment And Intervention Each 15 Minutes Medical Nutrition Therapy Re-assessment And Intervention Each 15 Minutes 54577 2007 CHIDI ROBERT [facility] Immunization Admin By Intranasal / Oral Route One Vaccine Immunization Admin By Intranasal / Oral Route One Vaccine 11089 2006 PASQUALE PLASCENCIA [facility] Influenza Virus Vaccine Intranasal Live Attenuated 2006 PASQUALE PLASCENCIA [facility] Skin Test Anergy Tuberculin Intradermal Skin Test Anergy Tuberculin Intradermal 51368 2006 PASQUALE PLASCENCIA [facility] Psychotherapy Individual Approximately 30 Minutes Psychotherapy Individual Approximately 30 Minutes 48810 2006 ALESSIA TAN [facility] Psychiatric Diagnostic Evaluation Comprehensive Examination Psychiatric Diagnostic Evaluation Comprehensive Examination 64902 2006 ALESSIA TAN [facility] Hepatitis A And Hepatitis B (Intramuscular Use) Adult Dosage Hepatitis A And Hepatitis B (Intramuscular Use) Adult Dosage 40851 2006 ROQUE WHITNEY [facility] Immunization Administration By Injection, One Vaccine Immunization Administration By Injection, One Vaccine 66570 2006 ROQUE WHITNEY [facility] Threshold Audiogram (Pure Tone) Threshold Audiogram (Pure Tone) 30428 2006 KOMAL SYED [facility] Audiogram (Screening) Audiogram (Screening) 67011 2006 RITCHIE YOUNG Ophthalmological New Patient Start Comprehensive Care Ophthalmological New Patient Start Comprehensive Care 39369 2006 GUSTAVO VALLE Determination Of Refractive State Determination Of Refractive State 88737 2006 GUSTAVO VALLE A isted Exercises For ROM Assisted Exercises For ROM 09246 2006 BRET VILLA PT A e ment Kinetic Training Initial 30 Minutes PT Assessment Kinetic Training Initial 30 Minutes 14684 2006 BRET VILLA Physical Medicine - Group Physical Therapy Se ion Physical Medicine - Group Physical Therapy Session 03935 2006 BRET VILLA Psychiatric Therapy Environmental Intervention Psychiatric Therapy Environmental Intervention 85417 2006 LEMUEL SAMPSON Psychotherapy Individual Approximately 30 Minutes Psychotherapy Individual Approximately 30 Minutes 40855 2006 LEMUEL SAMPSON Psychologic Testing And Report Administered By Computer Psychologic Testing And Report Administered By Computer 72844 2006 LEMUEL SAMPSON Psychiatric Diagnostic Evaluation Comprehensive Examination Psychiatric Diagnostic Evaluation Comprehensive Examination 03714 2006 LEMUEL SAMPSON Skin Test Anergy Tuberculin Intradermal Skin Test Anergy Tuberculin Intradermal 40571 2009 KAREEN ARMENDARIZ [facility] Skin Test Anergy Tuberculin Intradermal Skin Test Anergy Tuberculin Intradermal 59920 2009 JAZZ DAVIS Electrocardiogram Electrocardiogram 16387 01/17 EMMA WHALEY [facility] Skin Test Anergy Tuberculin Intradermal Skin Test Anergy Tuberculin Intradermal 62808 2009 CIERA FOREMAN Coordinated care fee, risk adjusted maintenance 2009 IVANNA CORTÉS [facility] Case Management, each 15 minutes 2009 IVANNA CORTÉS [facility] Influenza Virus Vaccine Pandemic Formulation Influenza Virus Vaccine Pandemic Formulation 99400 2009 WILTON SILVA Immunization Admin By Intranasal / Oral Route One Vaccine Immunization Admin By Intranasal / Oral Route One Vaccine 46830 2009 WILTON SILVA Immunization Administration By Injection, Each Additional Vaccine 2009 WILTON SILVA Typhoid Vaccine Vi Capsular Polysaccharide, For Intramus Use Typhoid Vaccine Vi Capsular Polysaccharide, For Intramus Use 75908 2009 WILTON SILVA [facility] Skin Test Anergy Tuberculin Intradermal Skin Test Anergy Tuberculin Intradermal 71397 2009 WILTON SILVA [facility] Coordinated care fee, risk adjusted maintenance, Level 4 2009 LYDIA CORTÉSA S [facility] Case Management, each 15 minutes 2009 LONGLYDIAA S [facility] Occupational Therapy Evaluation Occupational Therapy Evaluation 01101 2008 PAL NIEVES 30 min [facility] Physical Therapy Service Re-Evaluation Physical Therapy Service Re-Evaluation 84724 2008 TAMIA CARMONA [facility] Influenza Virus Vaccine Intranasal Live Attenuated 2008 HEIDE PRASAD [facility] Immunization Admin By Intranasal / Oral Route One Vaccine Immunization Admin By Intranasal / Oral Route One Vaccine 22176 2008 HEIDE PRASAD [facility] Coordinated care fee, risk adjusted maintenance, Level 4 2008 MOO IVANNA S [facility] Spectacles Services Fitting Monofocal Except For Aphakia Spectacles Services Fitting Monofocal Except For Aphakia 36453 2008 DOROTHY SUH IDElin [facility] Determination Of Refractive State Determination Of Refractive State 66203 2008 DOROTHY SUH IDElin [facility] Ophthalmological New Patient Start Comprehensive Care Ophthalmological New Patient Start Comprehensive Care 40456 2008 DOROTHY SUH IDElin [facility] Physician Supervised Specimen Handling / Transfer: Office To Lab Physician Supervised Specimen Handling / Transfer: Office To Lab 65788 2008 MEREDITH PAGE [facility] Coordinated care fee, risk adjusted maintenance, Level 4 2008 MOO IVANNA S [facility] Case Management, each 15 minutes 2008 MOO IVANNA S [facility] Audiogram (Screening) Audiogram (Screening) 70761 2008 SIDNEY DICKERSON [facility] Audiometry Group Testing Audiometry Group Testing 13234 2008 SIDNEY DICKERSON [facility] Coordinated care fee, risk adjusted maintenance, Level 4 2008 MOO IVANNA S [facility] Case Management, each 15 minutes 2008 MOO IVANNA S [facility] Physical Therapy: ___ Se ion Segments, 15 Minutes Each Physical Therapy: ___ Session Segments, 15 Minutes Each 15049 2008 ELVIA JEFFERS M x 20 mins DoD Physical Therapy: ___ Se ion Segments, 15 Minutes Each Physical Therapy: ___ Session Segments, 15 Minutes Each 79932 2008 ELVIA JEFFERS x 30 mins DoD Phys Therapy Education Self Care Training - Per 15 Minutes Phys Therapy Education Self Care Training - Per 15 Minutes 85841 2008 HARVEY KONG [facility] Physical Therapy: ___ Se ion Segments, 15 Minutes Each Physical Therapy: ___ Session Segments, 15 Minutes Each 89843 2008 NORAH JIMENEZ V DoD Aquatic Exercises Aquatic Exercises 28105 03/15 NORAH JIMENEZ V DoD Phys Therapy Education Self Care Training - Per 15 Minutes Phys Therapy Education Self Care Training - Per 15 Minutes 91482 2008 HARVEY KONG Phys Therapy Education Self Care Training - Per 15 Minutes Phys Therapy Education Self Care Training - Per 15 Minutes 85385 2008 HARVEY KONG Phys Therapy Education Self Care Training - Per 15 Minutes Phys Therapy Education Self Care Training - Per 15 Minutes 83879 2008 HARVEY KONG [facility] Coordinated care fee, risk adjusted maintenance, Level 4 2008 LONG, IVANNA S [facility] Case Management, each 15 minutes 2008 LONG, IVANNA S DoD Coordinated care fee, risk adjusted maintenance, Level 4 2008 LONG, IVANNA S [facility] Case Management, each 15 minutes 2008 LONG, IVANNA S DoD Phys Therapy Education Self Care Training - Per 15 Minutes Phys Therapy Education Self Care Training - Per 15 Minutes 89657 2008 HARVEY KONG [facility] Aquatic Exercises Aquatic Exercises 62908 02/28 NORAH JIMENEZ V [facility] Phys Therapy Education Self Care Training - Per 15 Minutes Phys Therapy Education Self Care Training - Per 15 Minutes 76373 2008 HARVEY KONG [facility] Aquatic Exercises Aquatic Exercises 65351 02/16 RENEE GREENWOOD [facility] Physical Therapy Service Evaluation Physical Therapy Service Evaluation 93103 2008 LATONYA MARADIAGA [facility] Coordinated care fee, risk adjusted maintenance, Level 4 2008 LONG, IVANNA S Do[facility] Case Management, each 15 minutes 2008 LONG, IVANNA S DoD Coordinated care fee, risk adjusted maintenance, Level 4 2008 LONG, IVANNA S Do[facility] Case Management, each 15 minutes 2008 MOOLYDIAA S [facility] Occupational Therapy Re-Evaluation Occupational Therapy Re-Evaluation 07711 2008 MEREDITH LOMELI [facility] PT A e ment Kinetic Training PT Assessment Kinetic Training 37274 2008 MOO PAULO A DoD Coordinated care fee, risk adjusted maintenance, Level 3 2008 LONGLYDIAA S DoD Case Management, each 15 minutes 2008 MOOLYDIAA S DoD PT A e ment Kinetic Training PT Assessment Kinetic Training 43598 2008 LILI MONTES PT A e ment Kinetic Training PT Assessment Kinetic Training 21042 2008 LILI MONTES PT A e ment Kinetic Training PT Assessment Kinetic Training 82133 2008 LILI MONTES Psychometric Neuropsych Testing Battery Admin By Physician Psychometric Neuropsych Testing Battery Admin By Physician 45451 2008 MONICA WATSON [facility] PT A e ment Kinetic Training PT Assessment Kinetic Training 89424 2008 MOO PAULO A Martín PT A e ment Kinetic Training PT Assessment Kinetic Training 17840 2008 MOO PAULO A DoD PT A e ment Kinetic Training PT Assessment Kinetic Training 40486 2008 PAULO CORTÉS Psychometric Neuropsych Testing Battery Admin By Physician Psychometric Neuropsych Testing Battery Admin By Physician 48897 2008 JATINDER GARCIA Psychometric Neuropsych Testing Battery Admin By Any Commodity Buyer Psychometric Neuropsych Testing Battery Admin By Any Commodity Buyer 83344 2008 JATINDER GARCIA [facility] A isted Exercises For ROM Assisted Exercises For ROM 17134 2008 TIAGOTEMEREDITH IZAGUIRRE Patient Training And Self-Care Skills Patient Training And Self-Care Skills 97953 2008 MEREDITH LOMELI Occupational Therapy Evaluation Occupational Therapy Evaluation 46353 2008 MEREDITH LOMELI Coordinated care fee, risk adjusted maintenance, Level 3 2008 LONGLYDIAA S DoD Case Management, each 15 minutes 2008 MOO IVANNA S [facility] Psychologic Testing And Report Administered By Computer Psychologic Testing And Report Administered By Computer 72366 2008 JATINDER GARCIA [facility] Psychometric Neuropsych Testing Battery Admin By Any Commodity Buyer Psychometric Neuropsych Testing Battery Admin By Any Commodity Buyer 31290 2008 JATINDER GARCIA [facility] Psychiatric Diagnostic Evaluation Comprehensive Examination Psychiatric Diagnostic Evaluation Comprehensive Examination 12063 2008 MONICA WATSON [facility] Screening Test Of Visual Acuity, Quantitative, Bilateral Screening Test Of Visual Acuity, Quantitative, Bilateral 33235 2008 SIERRA DE LA ROSA [facility] Coordinated care fee, risk adjusted maintenance, Level 3 2007 LONG, IVANNA S DoD Case Management, each 15 minutes 2007 LONG, IVANNA S [facility] Audiometry Group Testing Audiometry Group Testing 25649 2007 PAL MCLEOD [facility] Immunization Admin By Intranasal / Oral Route One Vaccine Immunization Admin By Intranasal / Oral Route One Vaccine 38377 [facility] Influenza Virus Vaccine Intranasal Live Attenuated 2007 [facility] Skin Test Anergy Tuberculin Intradermal Skin Test Anergy Tuberculin Intradermal 75218 2007 [facility] Venipuncture Venipuncture 71357 2007 DAKOTA MCCORMICK [facility] Physician Supervised Specimen Handling / Transfer: Office To Lab Physician Supervised Specimen Handling / Transfer: Office To Lab 32668 2007 DAKOTA MCCORMICK [facility] Physician Supervised Specimen Handling / Transfer: Office To Lab Physician Supervised Specimen Handling / Transfer: Office To Lab 72033 2007 TAMIA BALTAZAR Do[facility] Case Management, each 15 minutes 2007 LONG, IVANNA S Do[facility] Case Management, each 15 minutes 2007 LONG, IVANNA S DoD Case Management, each 15 minutes 2007 LONG, IVANNA S DoD Coordinated care fee, risk adjusted maintenance 2007 LONG, IVANNA S Do[facility] Case Management, each 15 minutes 2007 LONG, IVANNA S Do[facility] Case Management, each 15 minutes 2007 LONG, IVANNA S DoD Case Management, each 15 minutes 2007 LONG, IVANNA S DoD Case Management, each 15 minutes 2007 LONG, IVANNA S DoD Case Management, each 15 minutes 2007 LONG, IVANNA S Do[facility] Case Management, each 15 minutes 2007 LONG, IVANNA S DoD Case Management, each 15 minutes 2007 LONG, IVANNA S DoD Case Management, each 15 minutes 2007 LONG, IVANNA S [facility] Treatment Of Swallowing Dysfunction Treatment Of Swallowing Dysfunction 67234 2007 ODALIS RODRIGUEZ [facility] Physical Therapy Neuromuscular Re-education Physical Therapy Neuromuscular Re-education 19313 2007 JAZZ CARTER [facility] Treatment Of Swallowing Dysfunction Treatment Of Swallowing Dysfunction 06094 2007 ODALIS RODRIGUEZ [facility] Patient Training And Self-Care Skills Patient Training And Self-Care Skills 69227 2007 JAZZ CARTER [facility] Medical Nutrition Therapy Re-a e ment And Intervention Each 15 Minutes Medical Nutrition Therapy Re-assessment And Intervention Each 15 Minutes 77205 2007 YOLANDA CEDEÑO [facility] Patient Training And Self-Care Skills Patient Training And Self-Care Skills 17533 2007 JAZZ CARTER [facility] Physical Therapy Neuromuscular Re-education Physical Therapy Neuromuscular Re-education 10265 2007 JAZZ CARTER [facility] INDIVIDUAL PSYCHOTHERAPY, INSIGHT ORIENTED, BEHAVIOR MODIFYING AND/OR SUPPORTIVE, IN AN OFFICE OR OUTPATIENT FACILITY, APPROXIMATELY 20 TO 30 MINUTES [id number] WITH THE PATIENT 2006 [facility] PSYCHIATRIC DIAGNOSTIC INTERVIEW EXAMINATION 2006 [facility] IMMUNIZATION ADMINISTRATION (INCLUDES PERCUTANEOUS, INTRADERMAL, SUBCUTANEOUS, OR INTRAMUSCULAR INJECTIONS); 1 VACCINE (SINGLE OR COMBINATION VACCINE/TOXOID) 2006 [facility] PURE TONE AUDIOMETRY (THRESHOLD); AIR ONLY 2006 [facility] DETERMINATION OF REFRACTIVE STATE 2006 [facility] THERAPEUTIC PROCEDURE, 1 OR MORE AREAS, EACH 15 MINUTES; THERAPEUTIC EXERCISES TO DEVELOP STRENGTH AND ENDURANCE, RANGE OF MOTION AND FLEXIBILITY 2006 [facility] BUPRENORPHINE IMPLANT, 74.2 MG 2006 [facility] INDIVIDUAL PSYCHOTHERAPY, INSIGHT ORIENTED, BEHAVIOR MODIFYING AND/OR SUPPORTIVE, IN AN OFFICE OR OUTPATIENT FACILITY, APPROXIMATELY 20 TO 30 MINUTES [id number] WITH THE PATIENT 2006 [facility] PSYCHOLOGICAL TSTING (INCL PSYCHODIAG ASSESSMNT, EMOTITY, INTELLECTUAL ABILITIES, PERSONALITY &PSYCHOPATHOLOGY, EG, MMPI), ADMINISTERED COMPUTER, W QUALIFIED HEALTH SUPERVISOR WOOD CREW INTERPRET &RPT 2006 [facility] PSYCHIATRIC DIAGNOSTIC INTERVIEW EXAMINATION 2006 [facility] THERAPEUTIC PROCEDURE, 1 OR MORE AREAS, EACH 15 MINUTES; THERAPEUTIC EXERCISES TO DEVELOP STRENGTH AND ENDURANCE, RANGE OF MOTION AND FLEXIBILITY 2005 [facility] ORAL THERMOMETER, REUSABLE, ANY TYPE, EACH 2005 [facility] TYPHOID VACCINE, CAPSULAR POLYSACCHARIDE (VICPS), FOR INTRAMUSCULAR USE 2005 [facility] BUPRENORPHINE IMPLANT, 74.2 MG 2005 [facility] SCREENING TEST OF VISUAL ACUITY, QUANTITATIVE, BILATERAL 2005 [facility] AUDIOMETRIC TESTING OF GROUPS 2005 [facility] SKIN TEST; TUBERCULOSIS, INTRADERMAL 2005 [facility] SKIN TEST; TUBERCULOSIS, INTRADERMAL 2009 [facility] SKIN TEST; TUBERCULOSIS, INTRADERMAL 2009 [facility] ELECTROCARDIOGRAM, ROUTINE ECG WITH AT LEAST 12 LEADS; WITH INTERPRETATION AND REPORT 2009 [facility] SKIN TEST; TUBERCULOSIS, INTRADERMAL 2009 [facility] CASE MANAGEMENT, EACH 15 MINUTES 2009 [facility] IMMUNIZATION ADMINISTRATION (INCLUDES PERCUTANEOUS, INTRADERMAL, SUBCUTANEOUS, OR INTRAMUSCULAR INJECTIONS); EACH ADDITIONAL VACCINE (SINGLE OR COMBINATION VACCINE/TOXOID) 2009 [facility] CASE MANAGEMENT, EACH 15 MINUTES 2008 [facility] OCCUPATIONAL THERAPY EVALUATION 2008 [facility] PHYSICAL THERAPY RE-EVALUATION 2008 [facility] INFLUENZA VIRUS VACCINE, TRIVALENT, LIVE (LAIV3), FOR INTRANASAL USE 2008 [facility] FITTING OF SPECTACLES, EXCEPT FOR APHAKIA; MONOFOCAL 2008 [facility] COORDINATED CARE FEE, RISK ADJUSTED MAINTENANCE, LEVEL 4 2008 [facility] HANDLING AND/OR CONVEYANCE OF SPECIMEN FOR TRANSFER FROM THE OFFICE TO A LABORATORY 2008 [facility] SCREENING TEST, PURE TONE, AIR ONLY 2008 [facility] COORDINATED CARE FEE, RISK ADJUSTED MAINTENANCE, LEVEL 4 2008 [facility] COORDINATED CARE FEE, RISK ADJUSTED MAINTENANCE, LEVEL 4 2008 [facility] THERAPEUTIC PROCEDURE, 1 OR MORE AREAS, EACH 15 MINUTES; THERAPEUTIC EXERCISES TO DEVELOP STRENGTH AND ENDURANCE, RANGE OF MOTION AND FLEXIBILITY 2008 [facility] THERAPEUTIC PROCEDURE, 1 OR MORE AREAS, EACH 15 MINUTES; THERAPEUTIC EXERCISES TO DEVELOP STRENGTH AND ENDURANCE, RANGE OF MOTION AND FLEXIBILITY 2008 [facility] SELF-CARE/HOME MANAGMENT TRAIN (EG,ACT OF DAILY LIVING (ADL) &COMPENSAT TRAIN,MEAL PREPARATION,SAFETY PROCS,AND INSTRUCT IN USE OF ASST TECHNOLOGY DEV/ADPT EQUIP) DIR ONE-ON-ONE CONT,EA 15 MINUTES 2008 [facility] THERAPEUTIC PROCEDURE, 1 OR MORE AREAS, EACH 15 MINUTES; THERAPEUTIC EXERCISES TO DEVELOP STRENGTH AND ENDURANCE, RANGE OF MOTION AND FLEXIBILITY 2008 [facility] SELF-CARE/HOME MANAGMENT TRAIN (EG,ACT OF DAILY LIVING (ADL) &COMPENSAT TRAIN,MEAL PREPARATION,SAFETY PROCS,AND INSTRUCT IN USE OF ASST TECHNOLOGY DEV/ADPT EQUIP) DIR ONE-ON-ONE CONT,EA 15 MINUTES 2008 [facility] THERAPEUTIC PROCEDURE, 1 OR MORE AREAS, EACH 15 MINUTES; AQUATIC THERAPY WITH THERAPEUTIC EXERCISES 2008 [facility] SELF-CARE/HOME MANAGMENT TRAIN (EG,ACT OF DAILY LIVING (ADL) &COMPENSAT TRAIN,MEAL PREPARATION,SAFETY PROCS,AND INSTRUCT IN USE OF ASST TECHNOLOGY DEV/ADPT EQUIP) DIR ONE-ON-ONE CONT,EA 15 MINUTES 2008 [facility] SELF-CARE/HOME MANAGMENT TRAIN (EG,ACT OF DAILY LIVING (ADL) &COMPENSAT TRAIN,MEAL PREPARATION,SAFETY PROCS,AND INSTRUCT IN USE OF ASST TECHNOLOGY DEV/ADPT EQUIP) DIR ONE-ON-ONE CONT,EA 15 MINUTES 2008 [facility] COORDINATED CARE FEE, RISK ADJUSTED MAINTENANCE, LEVEL 4 2008 [facility] SELF-CARE/HOME MANAGMENT TRAIN (EG,ACT OF DAILY LIVING (ADL) &COMPENSAT TRAIN,MEAL PREPARATION,SAFETY PROCS,AND INSTRUCT IN USE OF ASST TECHNOLOGY DEV/ADPT EQUIP) DIR ONE-ON-ONE CONT,EA 15 MINUTES 2008 [facility] THERAPEUTIC PROCEDURE, 1 OR MORE AREAS, EACH 15 MINUTES; AQUATIC THERAPY WITH THERAPEUTIC EXERCISES 2008 [facility] COORDINATED CARE FEE, RISK ADJUSTED MAINTENANCE, LEVEL 4 2008 [facility] SELF-CARE/HOME MANAGMENT TRAIN (EG,ACT OF DAILY LIVING (ADL) &COMPENSAT TRAIN,MEAL PREPARATION,SAFETY PROCS,AND INSTRUCT IN USE OF ASST TECHNOLOGY DEV/ADPT EQUIP) DIR ONE-ON-ONE CONT,EA 15 MINUTES 2008 [facility] THERAPEUTIC PROCEDURE, 1 OR MORE AREAS, EACH 15 MINUTES; AQUATIC THERAPY WITH THERAPEUTIC EXERCISES 2008 [facility] PHYSICAL THERAPY EVALUATION 2008 [facility] COORDINATED CARE FEE, RISK ADJUSTED MAINTENANCE, LEVEL 4 2008 [facility] CASE MANAGEMENT, EACH 15 MINUTES 2008 [facility] OCCUPATIONAL THERAPY RE-EVALUATION 2008 [facility] THERAPEUTIC ACTIVITIES, DIRECT (ONE-ON-ONE) PATIENT CONTACT (USE OF DYNAMIC ACTIVITIES TO IMPROVE FUNCTIONAL PERFORMANCE), EACH 15 MINUTES 2008 [facility] COORDINATED CARE FEE, RISK ADJUSTED MAINTENANCE, LEVEL 3 2008 [facility] THERAPEUTIC ACTIVITIES, DIRECT (ONE-ON-ONE) PATIENT CONTACT (USE OF DYNAMIC ACTIVITIES TO IMPROVE FUNCTIONAL PERFORMANCE), EACH 15 MINUTES 2008 [facility] THERAPEUTIC ACTIVITIES, DIRECT (ONE-ON-ONE) PATIENT CONTACT (USE OF DYNAMIC ACTIVITIES TO IMPROVE FUNCTIONAL PERFORMANCE), EACH 15 MINUTES 2008 [facility] THERAPEUTIC ACTIVITIES, DIRECT (ONE-ON-ONE) PATIENT CONTACT (USE OF DYNAMIC ACTIVITIES TO IMPROVE FUNCTIONAL PERFORMANCE), EACH 15 MINUTES 2008 [facility] NEUROPSYCHOLOG TST (EG,[facility] NEUROPSYCHOLOG JEREMIAS,ANASTASIIA MEM SCALES & WISC CARD SORT TST),/HR OF PSYCHOLOGIST/PHYS TIME,BOTH [id number] ADMIN TST TO PAT & TIME INTERP TEST RES & PREP RPT 2008 [facility] THERAPEUTIC ACTIVITIES, DIRECT (ONE-ON-ONE) PATIENT CONTACT (USE OF DYNAMIC ACTIVITIES TO IMPROVE FUNCTIONAL PERFORMANCE), EACH 15 MINUTES 2008 [facility] THERAPEUTIC ACTIVITIES, DIRECT (ONE-ON-ONE) PATIENT CONTACT (USE OF DYNAMIC ACTIVITIES TO IMPROVE FUNCTIONAL PERFORMANCE), EACH 15 MINUTES 2008 [facility] THERAPEUTIC ACTIVITIES, DIRECT (ONE-ON-ONE) PATIENT CONTACT (USE OF DYNAMIC ACTIVITIES TO IMPROVE FUNCTIONAL PERFORMANCE), EACH 15 MINUTES 2008 [facility] NEUROPSYCHOLOG TST (EG,[facility] NEUROPSYCHOLOG JEREMIAS,ANASTASIIA MEM SCALES & WISC CARD SORT TST),/HR OF PSYCHOLOGIST/PHYS TIME,BOTH [id number] ADMIN TST TO PAT & TIME INTERP TEST RES & PREP RPT 2008 [facility] THERAPEUTIC PROCEDURE, 1 OR MORE AREAS, EACH 15 MINUTES; THERAPEUTIC EXERCISES TO DEVELOP STRENGTH AND ENDURANCE, RANGE OF MOTION AND FLEXIBILITY 2008 [facility] COORDINATED CARE FEE, RISK ADJUSTED MAINTENANCE, LEVEL 3 2008 DoD UNLISTED SPECIAL SERVICE, PROCEDURE OR REPORT 2008 [facility] PSYCHOLOGICAL TSTING (INCL PSYCHODIAG ASSESSMNT, EMOTITY, INTELLECTUAL ABILITIES, PERSONALITY &PSYCHOPATHOLOGY, EG, MMPI), ADMINISTERED COMPUTER, W QUALIFIED HEALTH SUPERVISOR WOOD CREW INTERPRET &RPT 2008 [facility] PSYCHIATRIC DIAGNOSTIC INTERVIEW EXAMINATION 2008 [facility] SCREENING TEST OF VISUAL ACUITY, QUANTITATIVE, BILATERAL 2008 [facility] COORDINATED CARE FEE, RISK ADJUSTED MAINTENANCE, LEVEL 3 2007 [facility] IMMUNIZATION ADMINISTRATION BY INTRANASAL OR ORAL ROUTE; 1 VACCINE (SINGLE OR COMBINATION VACCINE/TOXOID) 2007 [facility] AUDIOMETRIC TESTING OF GROUPS 2007 [facility] COLLECTION OF VENOUS BLOOD BY VENIPUNCTURE 2007 [facility] HANDLING AND/OR CONVEYANCE OF SPECIMEN FOR TRANSFER FROM THE OFFICE TO A LABORATORY 2007 [facility] CASE MANAGEMENT, EACH 15 MINUTES 2007 [facility] CASE MANAGEMENT, EACH 15 MINUTES 2007 [facility] CASE MANAGEMENT, EACH 15 MINUTES 2007 [facility] COORDINATED CARE FEE, RISK ADJUSTED MAINTENANCE 2007 [facility] CASE MANAGEMENT, EACH 15 MINUTES 2007 [facility] OTHER EXCISION OR DESTRUCTION OF LESION OR TISSUE OF BRAIN 2007 [facility] OTHER CRANIECTOMY 2007 [facility] ARTERIOGRAPHY OF CEREBRAL ARTERIES 2007 [facility] COMPUTERIZED AXIAL TOMOGRAPHY OF HEAD 2007 [facility] POSTOPERATIVE FOLLOW-UP VISIT, NORMALLY INCLUDED IN THE SURGICAL PACKAGE, INDICATE THAT EVALUATION & MANAGEMENT SERVICE WAS PERFORMED DURING A POSTOPERATIVE PERIOD REASON RELATED ORIGINAL PROCEDURE 2007 [facility] SELF-CARE/HOME MANAGMENT TRAIN (EG,ACT OF DAILY LIVING (ADL) &COMPENSAT TRAIN,MEAL PREPARATION,SAFETY PROCS,AND INSTRUCT IN USE OF ASST TECHNOLOGY DEV/ADPT EQUIP) DIR ONE-ON-ONE CONT,EA 15 MINUTES 2007 [facility] POSTOPERATIVE FOLLOW-UP VISIT, NORMALLY INCLUDED IN THE SURGICAL PACKAGE, INDICATE THAT EVALUATION & MANAGEMENT SERVICE WAS PERFORMED DURING A POSTOPERATIVE PERIOD REASON RELATED ORIGINAL PROCEDURE 2007 [facility] SURGERY OF INTRACRANIAL ARTERIOVENOUS MALFORMATION; SUPRATENTORIAL, SIMPLE 2007 [facility] UNLISTED SPECIAL SERVICE, PROCEDURE OR REPORT 2007 [facility] CASE MANAGEMENT, EACH 15 MINUTES 2007 [facility] CASE MANAGEMENT, EACH 15 MINUTES 2007 [facility] CASE MANAGEMENT, EACH 15 MINUTES 2007 [facility] CASE MANAGEMENT, EACH 15 MINUTES 2007 [facility] CASE MANAGEMENT, EACH 15 MINUTES 2007 [facility] CASE MANAGEMENT, EACH 15 MINUTES 2007 [facility] TEMPORARY TRACHEOSTOMY 02/17 [facility] ENTERAL INFUSION OF CONCENTRATED NUTRITIONAL SUBSTANCES 2007 [facility] VENTRICULOSTOMY 2007 [facility] OTHER INCISION OF BRAIN 01/28 [facility] INJECTION OF ANTIBIOTIC 01/28 [facility] INJECTION OF ANTICOAGULANT 2007 [facility] OTHER LAVAGE OF BRONCHUS AND TRACHEA 2007 [facility] INSERTION OF ENDOTRACHEAL TUBE 2007 [facility] OTHER OXYGEN ENRICHMENT 01/28 [facility] RESPIRATORY MEDICATION ADMINISTERED BY NEBULIZER 2007 [facility] OTHER DIAGNOSTIC ULTRASOUND 2007 [facility] DIAGNOSTIC ULTRASOUND OF HEART 2007 [facility] ARTERIOGRAPHY OF CEREBRAL ARTERIES 2007 [facility] COMPUTERIZED AXIAL TOMOGRAPHY OF ABDOMEN 2007 [facility] COMPUTERIZED AXIAL TOMOGRAPHY OF THORAX 2007 [facility] COMPUTERIZED AXIAL TOMOGRAPHY OF HEAD 2007 [facility] CONTINUOUS MECHANICAL VENTILATION FOR 96 CONSECUTIVE HOURS OR MORE 2007 [facility] PERCUTANEOUS [ENDOSCOPIC] GASTROSTOMY [PEG] 2007 [facility] VENOUS CATHETERIZATION, NOT ELSEWHERE CLASSIFIED 2007 [facility] CLOSED [ENDOSCOPIC] BIOPSY OF BRONCHUS 2007 [facility] TREATMENT OF SWALLOWING DYSFUNCTION AND/OR ORAL FUNCTION FOR FEEDING 2007 [facility] POSTOPERATIVE FOLLOW-UP VISIT, NORMALLY INCLUDED IN THE SURGICAL PACKAGE, INDICATE THAT EVALUATION & MANAGEMENT SERVICE WAS PERFORMED DURING A POSTOPERATIVE PERIOD REASON RELATED ORIGINAL PROCEDURE 2007 [facility] THERAPEUTIC PROCEDURE,1 OR MORE AREAS,EACH 15 MINUTES;NEUROMUSCULAR REEDUCATION OF MOVEMENT,BALANCE,COORDI NATION,KINESTHETIC SENSE,POSTURE,AND/OR PROPRIOCEPTION FOR SITTING AND/OR STANDING ACTIVITIES 2007 [facility] TREATMENT OF SWALLOWING DYSFUNCTION AND/OR ORAL FUNCTION FOR FEEDING 2007 [facility] THERAPEUTIC PROCEDURE, 1 OR MORE AREAS, EACH 15 MINUTES; GAIT TRAINING (INCLUDES STAIR CLIMBING) 2007 [facility] POSTOPERATIVE FOLLOW-UP VISIT, NORMALLY INCLUDED IN THE SURGICAL PACKAGE, INDICATE THAT EVALUATION & MANAGEMENT SERVICE WAS PERFORMED DURING A POSTOPERATIVE PERIOD REASON RELATED ORIGINAL PROCEDURE 2007 [facility] SELF-CARE/HOME MANAGMENT TRAIN (EG,ACT OF DAILY LIVING (ADL) &COMPENSAT TRAIN,MEAL PREPARATION,SAFETY PROCS,AND INSTRUCT IN USE OF ASST TECHNOLOGY DEV/ADPT EQUIP) DIR ONE-ON-ONE CONT,EA 15 MINUTES 2007 [facility] THERAPEUTIC PROCEDURE, 1 OR MORE AREAS, EACH 15 MINUTES; GAIT TRAINING (INCLUDES STAIR CLIMBING) 2007 [facility] MEDICAL NUTRITION THERAPY; RE-ASSESSMENT AND INTERVENTION, INDIVIDUAL, [id number] WITH THE PATIENT, EACH 15 MINUTES 2007 [facility] SELF-CARE/HOME MANAGMENT TRAIN (EG,ACT OF DAILY LIVING (ADL) &COMPENSAT TRAIN,MEAL PREPARATION,SAFETY PROCS,AND INSTRUCT IN USE OF ASST TECHNOLOGY DEV/ADPT EQUIP) DIR ONE-ON-ONE CONT,EA 15 MINUTES 2007 [facility] THERAPEUTIC ACTIVITIES, DIRECT (ONE-ON-ONE) PATIENT CONTACT (USE OF DYNAMIC ACTIVITIES TO IMPROVE FUNCTIONAL PERFORMANCE), EACH 15 MINUTES 2007 [facility] POSTOPERATIVE FOLLOW-UP VISIT, NORMALLY INCLUDED IN THE SURGICAL PACKAGE, INDICATE THAT EVALUATION & MANAGEMENT SERVICE WAS PERFORMED DURING A POSTOPERATIVE PERIOD REASON RELATED ORIGINAL PROCEDURE 2007 [facility] POSTOPERATIVE FOLLOW-UP VISIT, NORMALLY INCLUDED IN THE SURGICAL PACKAGE, INDICATE THAT EVALUATION & MANAGEMENT SERVICE WAS PERFORMED DURING A POSTOPERATIVE PERIOD REASON RELATED ORIGINAL PROCEDURE 2007 [facility] PHYSICAL THERAPY RE-EVALUATION 2007 [facility] POSTOPERATIVE FOLLOW-UP VISIT, NORMALLY INCLUDED IN THE SURGICAL PACKAGE, INDICATE THAT EVALUATION & MANAGEMENT SERVICE WAS PERFORMED DURING A POSTOPERATIVE PERIOD REASON RELATED ORIGINAL PROCEDURE 2007 [facility] THERAPEUTIC ACTIVITIES, DIRECT (ONE-ON-ONE) PATIENT CONTACT (USE OF DYNAMIC ACTIVITIES TO IMPROVE FUNCTIONAL PERFORMANCE), EACH 15 MINUTES 2007 [facility] TREATMENT OF SWALLOWING DYSFUNCTION AND/OR ORAL FUNCTION FOR FEEDING 2007 [facility] POSTOPERATIVE FOLLOW-UP VISIT, NORMALLY INCLUDED IN THE SURGICAL PACKAGE, INDICATE THAT EVALUATION & MANAGEMENT SERVICE WAS PERFORMED DURING A POSTOPERATIVE PERIOD REASON RELATED ORIGINAL PROCEDURE 2007 [facility] THERAPEUTIC ACTIVITIES, DIRECT (ONE-ON-ONE) PATIENT CONTACT (USE OF DYNAMIC ACTIVITIES TO IMPROVE FUNCTIONAL PERFORMANCE), EACH 15 MINUTES 2007 [facility] THERAPEUTIC PROCEDURE, 1 OR MORE AREAS, EACH 15 MINUTES; THERAPEUTIC EXERCISES TO DEVELOP STRENGTH AND ENDURANCE, RANGE OF MOTION AND FLEXIBILITY 2007 [facility] TREATMENT OF SWALLOWING DYSFUNCTION AND/OR ORAL FUNCTION FOR FEEDING 2007 [facility] POSTOPERATIVE FOLLOW-UP VISIT, NORMALLY INCLUDED IN THE SURGICAL PACKAGE, INDICATE THAT EVALUATION & MANAGEMENT SERVICE WAS PERFORMED DURING A POSTOPERATIVE PERIOD REASON RELATED ORIGINAL PROCEDURE 2007 [facility] POSTOPERATIVE FOLLOW-UP VISIT, NORMALLY INCLUDED IN THE SURGICAL PACKAGE, INDICATE THAT EVALUATION & MANAGEMENT SERVICE WAS PERFORMED DURING A POSTOPERATIVE PERIOD REASON RELATED ORIGINAL PROCEDURE 2007 [facility] THERAPEUTIC ACTIVITIES, DIRECT (ONE-ON-ONE) PATIENT CONTACT (USE OF DYNAMIC ACTIVITIES TO IMPROVE FUNCTIONAL PERFORMANCE), EACH 15 MINUTES 2007 [facility] TREATMENT OF SPEECH, LANGUAGE, VOICE, COMMUNICATION, AND/OR AUDITORY PROCESSING DISORDER; INDIVIDUAL 2007 [facility] MEDICAL NUTRITION THERAPY; RE-ASSESSMENT AND INTERVENTION, INDIVIDUAL, [id number] WITH THE PATIENT, EACH 15 MINUTES 2007 [facility] OCCUPATIONAL THERAPY EVALUATION 2007 [facility] THERAPEUTIC ACTIVITIES, DIRECT (ONE-ON-ONE) PATIENT CONTACT (USE OF DYNAMIC ACTIVITIES TO IMPROVE FUNCTIONAL PERFORMANCE), EACH 15 MINUTES 2007 [facility] TRACHEOSTOMY SPEAKING VALVE 2007 [facility] POSTOPERATIVE FOLLOW-UP VISIT, NORMALLY INCLUDED IN THE SURGICAL PACKAGE, INDICATE THAT EVALUATION & MANAGEMENT SERVICE WAS PERFORMED DURING A POSTOPERATIVE PERIOD REASON RELATED ORIGINAL PROCEDURE 2007 [facility] PHYSICAL THERAPY EVALUATION 2007 [facility] TRACHEOSTOMY SPEAKING VALVE 2007 [facility] POSTOPERATIVE FOLLOW-UP VISIT, NORMALLY INCLUDED IN THE SURGICAL PACKAGE, INDICATE THAT EVALUATION & MANAGEMENT SERVICE WAS PERFORMED DURING A POSTOPERATIVE PERIOD REASON RELATED ORIGINAL PROCEDURE 2007 [facility] PHYSICAL THERAPY EVALUATION 2007 [facility] HEALTH&BEHAV ASSESSMENT (EG, HEALTH-FOC CLINICAL INTERVIEW, BEHAVIORAL OBSERVATIONS, PSYCHOPHYSICOLOGICAL MONITOR, HEALTH-ORIENT QUESTIONNAIRES), EA 15 MIN [id number] W THE PATIENT; INIT ASSESSMENT 2007 [facility] MEDICAL NUTRITION THERAPY; RE-ASSESSMENT AND INTERVENTION, INDIVIDUAL, [id number] WITH THE PATIENT, EACH 15 MINUTES 2007 [facility] INSERTION OF GASTROSTOMY TUBE, PERCUTANEOUS, UNDER FLUOROSCOPIC GUIDANCE INCLUDING CONTRAST INJECTION(S), IMAGE DOCUMENTATION AND REPORT 2007 [facility] MEDICAL NUTRITION THERAPY; RE-ASSESSMENT AND INTERVENTION, INDIVIDUAL, [id number] WITH THE PATIENT, EACH 15 MINUTES 2007 [facility] MEDICAL NUTRITION THERAPY; RE-ASSESSMENT AND INTERVENTION, INDIVIDUAL, [id number] WITH THE PATIENT, EACH 15 MINUTES 2007 [facility] POSTOPERATIVE FOLLOW-UP VISIT, NORMALLY INCLUDED IN THE SURGICAL PACKAGE, INDICATE THAT EVALUATION & MANAGEMENT SERVICE WAS PERFORMED DURING A POSTOPERATIVE PERIOD REASON RELATED ORIGINAL PROCEDURE 2007 [facility] POSTOPERATIVE FOLLOW-UP VISIT, NORMALLY INCLUDED IN THE SURGICAL PACKAGE, INDICATE THAT EVALUATION & MANAGEMENT SERVICE WAS PERFORMED DURING A POSTOPERATIVE PERIOD REASON RELATED ORIGINAL PROCEDURE 2007 [facility] 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 Social History Type Response Date Comment Sourc e Tobacco smoking status NHIS VA-TOBACCO FORMER USER 03/18/2024 [facility] History of tobacco use VA-TOBACCO QUIT < 1 YEAR 03/18/2024 [facility] History of tobacco use VA-TOBACCO USER E VERY DAY 03/18/2023 [facility] History of tobacco use VA-VAAES TOBACCO USE CURRENT NRT DECLINE 11/06/2022 [facility] History of tobacco use ORYX ADMIT TOBACC O USE CIGS GR 5D 11/06/2022 [facility] History of tobacco use LIFETIME NON-USER OF TOBACCO 01/17/2011 [facility] History of tobacco use LIFETIME NON-USER OF TOBACCO 03/04/2008 [facility] This section is an empty social history section. DoD Plan of Care List of future care activities from Department of 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 Additional future care activities may be listed in the Assessment and Plan section. Date/Time Care Activity Care Activity Detail Facili ty 03/18/2025 AMBULATORY - MEDICINE AMBULATORY - MEDICI NE [facility]
--- OUTSIDE RECORDS SUMMARY | 2024-11-19 09:30 | XMS_ITS | Continuity of Care Document ---
Author Organization [facility] Address [address] [place] [address] Phone Care Team Providers Care Basic Acoustic Analyst Name Role Phone Amy Dc Unavailable Unavailable Allergies, Adverse Reactions, Alerts Substance Reaction Status Criticality No Known Allergies Active No Inform ation Medications Medication Instructions Dosage Effective Dates (start - stop) Status Comments amoxicillin 875 mg-potassium clavulanate 125 mg tablet take 1 tablet by oral route every 12 hours 1.00 tablet - Active Procedures Procedure Date OFFICE/OUTPATIENT VISIT, [facility] Ketorolac tromethamine inj Advance Directives Directive Yes / No Effective Date File Name No Information Encounters Encounter Description Practice Location Reason(s) For Visit Diagnoses Date Provider Providers Copied on Encounter OFFICE/OUTPAT IENT VISIT, [facility], [address] [place] [address], [facility], tel:[phone] [place] TOOTH PAIN (chief complaint) Chronic dental infection Dao Reyes. [address] [place] [address], [facility], . 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 STATES HE USED MANY OF THOSE LAST NIGHT BECAUSE THE PAIN WASSO SEVERE. HAS BEEN UNABLE TO EAT SINCE THE PAIN BECAME WORSE. 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 NO REACTION NOTED.PT LEFT AMBULATORY. Reason For Referral Reason For Referral No Information Plan Of Treatment Date Type Action Status Goal Tdap. Due on due Goal Td vaccine. Due on due Goal Depression screening. Due on due Goal Influenza vaccine. Due on Oc due Patient Education Abscessed Tooth: Care I [...] to the area. 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 STATES HE USED MANY OF THOSE LAST [...] Mental Status Date Cognitive Assessment Orientation - [place] ed to time, place, person, situation. Patient Care Teams Name Effective Dates (start - stop) Status Members No Information
--- OUTSIDE RECORDS SUMMARY | 2024-11-19 09:42 | XMS_ITS | Continuity of Care Document ---
Author Name [facility] Organization [facility] Care Team Providers Care Can Slider Name Role Phone [facility] Unavailable Unavailable Problems Combined list of problems 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 It does not include entries that were removed or entered in error. Problem Status Onset Date Problem Type Date of Resolution Comments Source Adjustment disorder with depressed mood (SNOMED CT 14923714) Active Condition [facility] Cerebral aneurysm, nonruptured (ICD-9-CM 437.3) Active Condition [facility] Congenital arteriovenous malformation Active Condition Jan 17, 2011 Entered By: CHIOMA UQAN Comment: 12/[address] [facility] Diplopia * (ICD-9-CM 368.2) Active Condition [facility] Myopia Active Condition [facility] Pain of joint of knee (SNOMED CT 5278210783) Active Condition [facility] Pneumonia, organism unspecified Active Condition Jan 17, 2011 Entered By: CHIOMA QUAN Comment: August 2010, received pneumovax vaccineMar 08, 2011 Entered By: CHIOMA QUAN Comment: 02/20/11 rul and rml [facility] [place] [facility] Active Condition [facility] Tinnitus Active Condition [facility] Vitamin D Deficiency (SCT 98961066) Active Condition [facility] Chest Pain * (ICD-9-CM 786.50) Inactive Condition 03/18/2023 [facility] Cyst, ganglion Inactive Condition 03/18/2023 Jan 17, 2011 Entered By: CHIOMA QUAN Comment: right wrist [facility] Encounters for unspecified Administrative Purpose (ICD-9-CM V68.9) Inactive Condition 03/18/2023 [facility] NEUTROPENIA, unspecified Inactive Condition 03/18/2023 [facility] Vitamin D Deficiency Inactive Condition 03/18/2023 [facility] visit for: services physical separation Active Condition [facility] visit for: refer patient without exam or [...] Condition DoD difficulty swallowing (dysphagia) Active Condition [facility] Patient Counseling: Inquiry & Counseling Active Condition [facility] intracerebral hemorrhage Active Condition [facility] bacteremia Active Condition [facility] arteriovenous malformation (ONION TOPPER) Active Condition [facility] Dietary Counseling Pertaining To Specific Condition Inactive Condition [facility] visit for: screening exam pulmonary tuberculosis Active [...] exam w/o abnormal findings Active Diagnosis . [facility] Diagnosis: ICD-10-CM Q27.30 Arteriovenous malformation, site unspecified Active Diagnosis [facility] Diagnosis: ICD-10-CM G40.89 Other seizures Active Diagnosis [facility] Allergies, Adverse Reactions, Alerts Combined list of allergies 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 It does not include entries that were removed or entered in error. Substance Category Reaction Severity Reaction type Status Date Reported Comments Source ADHESIVE TAPE Propensity to adverse reaction (finding) Eruption active 1 [facility] OTHER Drug allergy (disorder) Unknown active 8 [facility] Immunizations Combined list of available immunizations from the 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 Immunization Series Date Given Administered By Site Reaction Lot Number CVX Code Drug [employer] Professor Status Comments Source PNEUMOCOCCAL POLYSACCHARID E PPV23 2022 KARI,EDIT H R RIGHT DELTO ID [id number] 33 complet ed [facility] TDAP 2022 KARIEDIT H R LEFT DELTO ID [id number] 115 complet ed [facility] INFLUENZA, UNSPECIFIED FORMULATION 2011 88 complet ed [facility] INFLUENZA, UNSPECIFIED FORMULATION 2010 88 complet ed [facility] tuberculin skin test; purified protein derivative solution, intradermal 0 2009 KAREEN ARMENDARIZ [id number] [facility] [facility] ([facility]) complet ed tuberculi n skin test; purified protein derivativ e solution, intraderm al DoD tuberculin skin test; purified protein derivative solution, intradermal 1 2009 JAZZ DAVIS [id number] 96 [facility] [facility] ([facility]) complet ed tuberculi n skin test; purified protein derivativ e solution, intraderm al DoD tuberculin skin test; purified protein derivative solution, intradermal 1 2009 CIERA FOREMAN [id number] 96 [facility] [facility] ([facility]) complet ed tuberculi n skin test; purified protein derivativ e solution, intraderm al DoD tuberculin skin test; purified protein derivative solution, intradermal 1 2009 WILTON SILVA [id number] 96 [facility] [facility] ([facility]) complet ed tuberculi n skin test; purified protein derivativ e solution, intraderm al DoD typhoid Vi capsular polysaccharid e vaccine 1 2009 WILTON SILVA [id number] [place] [employer] ([employer]) complet ed typhoid Vi capsular polysacch aride vaccine DoD Novel Influenza-H1N 1-09, live virus for nasal administratio n 1 2009 WILTON SILVA [id number] 125 [facility] (MED) complet ed Novel Influenza -[id number], live virus for nasal administr ation DoD influenza virus vaccine, live, attenuated, for intranasal use 0 2008 UNK 111 Unknown (UNK) comple t ed influenza virus vaccine, live, attenuate d, for intranasa l use DoD influenza virus vaccine, live, attenuated, for intranasal use 1 2008 SERA PRASAD Radha [id number] 111 [employer] (MED) complet ed influenza virus vaccine, live, attenuate d, for intranasa l use DoD tuberculin skin test; purified protein derivative solution, intradermal 1 2007 KAREEN ARMENDARIZ [id number] [place] (PD) complet ed tuberculi n skin test; purified protein derivativ e solution, intraderm al DoD influenza virus vaccine, live, attenuated, for intranasal use 1 2007 KAREEN ARMENDARIZ [id number] 111 [employer] (MED) complet ed influenza virus vaccine, live, attenuate d, for intranasa l use DoD influenza virus vaccine, unspecified formulation 0 2006 UNK 88 Unknown (UNK) comple t ed influenza virus vaccine, unspecifi ed formulati on DoD tuberculin skin test; purified protein derivative solution, intradermal 1 2006 JAZZ DAVIS [id number] 96 [place] (PD) complet ed tuberculi n skin test; purified protein derivativ e solution, intraderm al DoD influenza virus vaccine, live, attenuated, for intranasal use 1 2006 SINHAYVONNE VickShalom Rubio [id number] 111 [employer] (MED) complet ed influenza virus vaccine, live, attenuate d, for intranasa l use DoD hepatitis B vaccine, adult dosage 3 2006 UNK 43 Unknown (UNK) comple t ed hepatitis B vaccine, adult dosage DoD hepatitis A and hepatitis B vaccine 3 2006 ROQUE WHITNEY [id number] [facility] (SKB) complet ed hepatitis A and [...] Reference Range Date Interpretation Specimen Comments Source CBC LEUKOCYTES [#/VOLUME] IN BLOOD BY AUTOMATED COUNT 4.7 10*3/u L 3.6 - 11.2 03/18 Specimen Type: BLOOD No comment entered. Ordering Provider: Nicanor KENNEDY Report Released Date/Time: Mar 18, 2024 10:55 AM Reporting Lab: [facility] [address] [address] Performing Lab: [facility] [address] [address] [facility] CBC ERYTHROCYTE S [#/VOLUME] IN BLOOD BY AUTOMATED COUNT 4.62 10*6/u L 4.10 - 5.70 03/18 Specimen Type: BLOOD No comment entered. Ordering Provider: Nicanor KENNEDY Report Released Date/Time: Mar 18, 2024 10:55 AM Reporting Lab: [facility] [address] [place] [address] Performing Lab: [address] [address] [facility] CBC HEMOGLOBIN [MASS/VOLUM E] IN BLOOD 14.3 g/dL 13.1 - 16.8 03/18 Specimen Type: BLOOD No comment entered. Ordering Provider: Nicanor KENNEDY Report Released Date/Time: Mar 18, 2024 10:55 AM Reporting Lab: [address] [address] Performing Lab: [place] [phone] [place] [address] [facility] CBC HEMATOCRIT [VOLUME FRACTION] OF BLOOD 42.9 38.2 - 48.4 03/18 Specimen Type: BLOOD No comment entered. Ordering Provider: Nicanor KENNEDY Report Released Date/Time: Mar 18, 2024 10:55 AM Reporting Lab: [address] [address] Performing Lab: [address] [address] [facility] CBC MCV [ENTITIC VOLUME] BY AUTOMATED COUNT 92.9 fL 80.0 - 100.0 03/18 Specimen Type: BLOOD No comment entered. Ordering Provider: Nicanor KENNEDY Report Released Date/Time: Mar 18, 2024 10:55 AM Reporting Lab: [address] [address] Performing Lab: [address] [address] [facility] CBC MCH [ENTITIC MASS] BY AUTOMATED COUNT 31.0 pg 27.0 - 34.0 03/18 Specimen Type: BLOOD No comment entered. Ordering Provider: Nicanor KENNEDY Report Released Date/Time: Mar 18, 2024 10:55 AM Reporting Lab: [address] [address] Performing Lab: [address] [place] [address] [facility] CBC MCHC [MASS/VOLUM E] BY AUTOMATED COUNT 33.3 g/dL 33.0 - 36.0 03/18 Specimen Type: BLOOD No comment entered. Ordering Provider: Nicanor KENNEDY Report Released Date/Time: Mar 18, 2024 10:55 AM Reporting Lab: [address] [address] Performing Lab: [address] [address] [facility] CBC PLATELETS [#/VOLUME] IN BLOOD BY AUTOMATED COUNT 237 10*3/u L 150 - 400 03/18 Specimen Type: BLOOD No comment entered. Ordering Provider: Nicanor KENNEDY Report Released Date/Time: Mar 18, 2024 10:55 AM Reporting Lab: [address] [address] Performing Lab: [address] [address] [facility] CBC PLATELET MEAN VOLUME [ENTITIC VOLUME] IN BLOOD BY AUTOMATED COUNT 10.6 fL 7.5 - 11.2 03/18 Specimen Type: BLOOD No comment entered. Ordering Provider: Nicanor KENNEDY Report Released Date/Time: Mar 18, 2024 10:55 AM Reporting Lab: [address] [address] Performing Lab: [address] [address] [facility] CBC ERYTHROCYTE DISTRIBUTIO N WIDTH [RATIO] BY AUTOMATED COUNT 12.2 11.8 - 15.1 03/18 Specimen Type: BLOOD No comment entered. Ordering Provider: Nicanor KENNEDY Report Released Date/Time: Mar 18, 2024 10:55 AM Reporting Lab: [address] [address] Performing Lab: [address] [address] [facility] CBC LYMPHOCYTES /100 LEUKOCYTES IN BLOOD BY AUTOMATED COUNT 30 03/18 Specimen Type: BLOOD No comment entered. Ordering Provider: Nicanor KENNEDY Report Released Date/Time: Mar 18, 2024 10:55 AM Reporting Lab: [facility] [address] [place] [address] Performing Lab: [facility] [address] [place] [address] [facility] CBC MONOCYTES/1 00 LEUKOCYTES IN BLOOD BY AUTOMATED COUNT 8 03/18 Specimen Type: BLOOD No comment entered. Ordering Provider: Nicanor KENNEDY Report Released Date/Time: Mar 18, 2024 10:55 AM Reporting Lab: [facility] [address] [place] [address] Performing Lab: [facility] [address] [place] [address] [facility] CBC NEUTROPHILS /100 LEUKOCYTES IN BLOOD BY AUTOMATED COUNT 58 03/18 Specimen Type: BLOOD No comment entered. Ordering Provider: Nicanor KENNEDY Report Released Date/Time: Mar 18, 2024 10:55 AM Reporting Lab: [facility] [address] [place] [address] Performing Lab: [facility] [address] [place] [address] [facility] CBC EOSINOPHILS /100 LEUKOCYTES IN BLOOD BY AUTOMATED COUNT 3 03/18 Specimen Type: BLOOD No comment entered. Ordering Provider: Nicanor KENNEDY Report Released Date/Time: Mar 18, 2024 10:55 AM Reporting Lab: [facility] [address] [address] Performing Lab: [facility] [address] [place] [address] [facility] CBC BASOPHILS/1 00 LEUKOCYTES IN BLOOD BY AUTOMATED COUNT 1 03/18 Specimen Type: BLOOD No comment entered. Ordering Provider: Nicanor KENNEDY Report Released Date/Time: Mar 18, 2024 10:55 AM Reporting Lab: [facility] [address] [place] [address] Performing Lab: [facility] [address] [place] [phone] [facility] CBC LYMPHOCYTES [#/VOLUME] IN BLOOD BY AUTOMATED COUNT 1.42 10*3/u L 0.77 - 4.50 03/18 Specimen Type: BLOOD No comment entered. Ordering Provider: Nicanor KENNEDY Report Released Date/Time: Mar 18, 2024 10:55 AM Reporting Lab: [address] [address] Performing Lab: [phone] [facility] CBC MONOCYTES [#/VOLUME] IN BLOOD BY AUTOMATED COUNT 0.38 10*3/u L 0.19 - 0.80 03/18 Specimen Type: BLOOD No comment entered. Ordering Provider: Nicanor KENNEDY Report Released Date/Time: Mar 18, 2024 10:55 AM Reporting Lab: [address] [address] Performing Lab: [address] [phone] [place] [address] [facility] CBC NEUTROPHILS [#/VOLUME] IN BLOOD BY AUTOMATED COUNT 2.72 10*3/u L 2.10 - 8.00 03/18 Specimen Type: BLOOD No comment entered. Ordering Provider: Nicanor KENNEDY Report Released Date/Time: Mar 18, 2024 10:55 AM Reporting Lab: [address] [address] Performing Lab: [address] [address] [facility] CBC EOSINOPHILS [#/VOLUME] IN BLOOD BY AUTOMATED COUNT 0.13 10*3/u L 0.00 - 0.60 03/18 Specimen Type: BLOOD No comment entered. Ordering Provider: Nicanor KENNEDY Report Released Date/Time: Mar 18, 2024 10:55 AM Reporting Lab: [address] [address] Performing Lab: [address] [phone] [place] [address] [facility] CBC BASOPHILS [#/VOLUME] IN BLOOD BY AUTOMATED COUNT 0.06 10*3/u L 0.00 - 0.20 03/18 Specimen Type: BLOOD No comment entered. Ordering Provider: Nicanor KENNEDY Report Released Date/Time: Mar 18, 2024 10:55 AM Reporting Lab: [place] [phone] Performing Lab: [place] [phone] [facility] COMPREHENS GUILLERMO METABOLIC PANEL CREATININE [MASS/VOLUM E] IN SERUM OR PLASMA 1.14 mg/dL 0.7 - 1.3 03/18 Specimen Type: PLASMA Comment: No hemolysis noted. Ordering Provider: Nicanor KENNEDY Report Released Date/Time: Mar 18, 2024 10:55 AM Reporting Lab: [place] [phone] Performing Lab: [address] [phone] [place] [address] [facility] COMPREHENS GUILLERMO METABOLIC PANEL UREA NITROGEN [MASS/VOLUM E] IN SERUM OR PLASMA 16.6 mg/dL 9.0 - 25.0 03/18 Specimen Type: PLASMA Comment: No hemolysis noted. Ordering Provider: Nicanor KENNEDY Report Released Date/Time: Mar 18, 2024 10:55 AM Reporting Lab: [address] [address] Performing Lab: [address] [address] [facility] COMPREHENS GUILLERMO METABOLIC PANEL GLUCOSE [MASS/VOLUM E] IN SERUM OR PLASMA 108 mg/dL 72 - 99 03/18 H Specimen Type: PLASMA Comment: No hemolysis noted. Ordering Provider: Nicanor KENNEDY Report Released Date/Time: Mar 18, 2024 10:55 AM Reporting Lab: [facility] [address] [place] [address] Performing Lab: [facility] [address] [place] [address] [facility] COMPREHENS GUILLERMO METABOLIC PANEL SODIUM [MOLES/VOLU ME] IN SERUM OR PLASMA 139 meq/L 136 - 145 03/18 Specimen Type: PLASMA Comment: No hemolysis noted. Ordering Provider: Nicanor KENNEDY Report Released Date/Time: Mar 18, 2024 10:55 AM Reporting Lab: [address] [address] Performing Lab: [address] [address] [facility] COMPREHENS GUILLERMO METABOLIC PANEL POTASSIUM [MOLES/VOLU ME] IN SERUM OR PLASMA 4.9 meq/L 3.5 - 5 03/18 Specimen Type: PLASMA Comment: No hemolysis noted. Ordering Provider: Nicanor KENNEDY Report Released Date/Time: Mar 18, 2024 10:55 AM Reporting Lab: [facility] [address] [place] [phone] Performing Lab: [facility] [address] [place] [phone] [facility] COMPREHENS GUILLERMO METABOLIC PANEL CHLORIDE [MOLES/VOLU ME] IN SERUM OR PLASMA 106 meq/L 98 - 107 03/18 Specimen Type: PLASMA Comment: No hemolysis noted. Ordering Provider: Nicanor KENNEDY Report Released Date/Time: Mar 18, 2024 10:55 AM Reporting Lab: [facility] [address] [place] [phone] Performing Lab: [facility] [address] [place] [address] [facility] COMPREHENS GUILLERMO METABOLIC PANEL CARBON DIOXIDE, TOTAL [MOLES/VOLU ME] IN SERUM OR PLASMA 25 meq/L 22 - 31 03/18 Specimen Type: PLASMA Comment: No hemolysis noted. Ordering Provider: Nicanor KENNEDY Report Released Date/Time: Mar 18, 2024 10:55 AM Reporting Lab: [facility] [address] [place], [place] [phone] Performing Lab: [facility] [address] [place] [phone] [place] [address] [facility] COMPREHENS GUILLERMO METABOLIC PANEL CALCIUM [MASS/VOLUM E] IN SERUM OR PLASMA 9.3 mg/dL 8.4 - 10.4 03/18 Specimen Type: PLASMA Comment: No hemolysis noted. Ordering Provider: Nicanor KENNEDY Report Released Date/Time: Mar 18, 2024 10:55 AM Reporting Lab: [place] [address] Performing Lab: [place] [phone] [facility] COMPREHENS GUILLERMO METABOLIC PANEL PROTEIN [MASS/VOLUM E] IN SERUM OR PLASMA 6.9 g/dL 6 - 8.6 03/18 Specimen Type: PLASMA Comment: No hemolysis noted. Ordering Provider: Nicanor KENNEDY Report Released Date/Time: Mar 18, 2024 10:55 AM Reporting Lab: [facility] [address] [place], [place] [phone] Performing Lab: [address] [phone] [place] [address] [facility]OC COMPREHENS GUILLERMO METABOLIC PANEL ALBUMIN [MASS/VOLUM E] IN SERUM OR PLASMA 4.3 g/dL 3.4 - 5 03/18 Specimen Type: PLASMA Comment: No hemolysis noted. Ordering Provider: Nicanor KENNEDY Report Released Date/Time: Mar 18, 2024 10:55 AM Reporting Lab: [facility] [address] [place] [address] Performing Lab: [address] [phone] [place] [address] [facility]OC COMPREHENS GUILLERMO METABOLIC PANEL BILIRUBIN.T OTAL [MASS/VOLUM E] IN SERUM OR PLASMA 0.5 mg/dL 0.2 - 1.2 03/18 Specimen Type: PLASMA Comment: No hemolysis noted. Ordering Provider: Nicanor KENNEDY Report Released Date/Time: Mar 18, 2024 10:55 AM Reporting Lab: [facility] [address] [place] [phone] Performing Lab: [facility] [address] [place] [address] [facility] COMPREHENS GUILLERMO METABOLIC PANEL ALKALINE PHOSPHATASE [ENZYMATIC ACTIVITY/VO LUME] IN SERUM OR PLASMA 73 U/L 40 - 150 03/18 Specimen Type: PLASMA Comment: No hemolysis noted. Ordering Provider: Nicanor KENNEDY Report Released Date/Time: Mar 18, 2024 10:55 AM Reporting Lab: [facility] [address] [place] [phone] Performing Lab: [address] [address] [facility] COMPREHENS GUILLERMO METABOLIC PANEL ASPARTATE AMINOTRANSF ERASE [ENZYMATIC ACTIVITY/VO LUME] IN SERUM OR PLASMA 28 U/L 5 - 34 03/18 Specimen Type: PLASMA Comment: No hemolysis noted. Ordering Provider: Nicanor KENNEDY Report Released Date/Time: Mar 18, 2024 10:55 AM Reporting Lab: [facility] [address] [place] [phone] Performing Lab: [facility] [address] [place] [address] [facility] COMPREHENS GUILLERMO METABOLIC PANEL ALANINE AMINOTRANSF ERASE [ENZYMATIC ACTIVITY/VO LUME] IN SERUM OR PLASMA 24 U/L 8 - 40 03/18 Specimen Type: PLASMA Comment: No hemolysis noted. Ordering Provider: Nicanor KENNEDY Report Released Date/Time: Mar 18, 2024 10:55 AM Reporting Lab: [facility] [address] [place] [phone] Performing Lab: [facility] [address] [place] [address] [facility] COMPREHENS GUILLERMO METABOLIC PANEL GLOMERULAR FILTRATION RATE/1.73 SQ M.PREDICTED [VOLUME RATE/AREA] IN SERUM, PLASMA OR BLOOD BY CREATININE- BASED FORMULA (CKD-EPI 2020) 85.5 60 03/18 Specimen Type: PLASMA Comment: No hemolysis noted. Ordering Provider: Nicanor KENNEDY Report Released Date/Time: Mar 18, 2024 10:55 AM Reporting Lab: [address] [address] Performing Lab: [address] [address] [facility] HGA1C HEMOGLOBIN A1C/HEMOGLO BIN.TOTAL IN BLOOD 5.5 4.0 - 6.0 03/18 Specimen Type: BLOOD No comment entered. Ordering Provider: Nicanor KENNEDY Report Released Date/Time: Mar 18, 2024 10:55 AM Reporting Lab: [address] [address] Performing Lab: [address] [address] [facility] LIPID PANEL (STL) CHOLESTEROL [MASS/VOLUM E] IN SERUM OR PLASMA 209 mg/dL 0 - 200 03/18 H Specimen Type: PLASMA Comment: No hemolysis noted. Ordering Provider: Nicanor KENNEDY Report Released Date/Time: Mar 18, 2024 10:55 AM Reporting Lab: [address] [address] Performing Lab: [address] [address] [facility] LIPID PANEL (STL) TRIGLYCERID E [MASS/VOLUM E] IN SERUM OR PLASMA 247 mg/dL 0 - 150 03/18 H Specimen Type: PLASMA Comment: No hemolysis noted. Ordering Provider: Nicanor EKNNEDY Report Released Date/Time: Mar 18, 2024 10:55 AM Reporting Lab: [address] [address] Performing Lab: [address] [address] [facility] [place] [facility] LIPID PANEL (STL) CHOLESTEROL IN LDL [MASS/VOLUM E] IN SERUM OR PLASMA BY CALCULATION 106 mg/dL 03/18 Specimen Type: PLASMA Comment: No hemolysis noted. Ordering Provider: Nicanor KENNEDY Report Released Date/Time: Mar 18, 2024 10:55 AM Reporting Lab: [place] [address] Performing Lab: [address] [facility] LIPID PANEL (STL) CHOLESTEROL IN HDL [MASS/VOLUM E] IN SERUM OR PLASMA 54 mg/dL 40 03/18 Specimen Type: PLASMA Comment: No hemolysis noted. Ordering Provider: Nicanor KENNEDY Report Released Date/Time: Mar 18, 2024 10:55 AM Reporting Lab: [place] [address] Performing Lab: [address] [facility] TSH W/ REFLEX FT4 (STL) THYROTROPIN [UNITS/VOLU ME] IN SERUM OR PLASMA 0.605 u[IU]/ mL 0.47 - 5 03/18 Specimen Type: PLASMA No comment entered. Ordering Provider: Nicanor KENNEDY Report Released Date/Time: Mar 18, 2024 10:55 AM Reporting Lab: [place] [address] Performing Lab: [address] [facility] VITAMIN D, 25-HYDROXY 25-HYDROXYV ITAMIN D3 [MASS/VOLUM E] IN SERUM OR PLASMA 35.9 ng/mL 30 - 96 03/18 Specimen Type: SERUM No comment entered. Ordering Provider: Nicanor KENNEDY Report Released Date/Time: Mar 18, 2024 10:55 AM Reporting Lab: [place] [address] Performing Lab: [address] [address] [facility] HGA1C HEMOGLOBIN A1C/HEMOGLO BIN.TOTAL IN BLOOD 5.7 4.0 - 6.0 03/18 Specimen Type: BLOOD No comment entered. Ordering Provider: Nicanor KENNEDY Report Released Date/Time: Mar 18, 2023 09:16 AM Reporting Lab: [address] [address] Performing Lab: [address] [address] [facility] LIPID PANEL (STL) CHOLESTEROL [MASS/VOLUM E] IN SERUM OR PLASMA 219 mg/dL 0 - 200 03/18 H Specimen Type: PLASMA No comment entered. Ordering Provider: Nicanor KENNEDY Report Released Date/Time: Mar 18, 2023 09:16 AM Reporting Lab: [address] [address] Performing Lab: [address] [address] [facility] LIPID PANEL (STL) TRIGLYCERID E [MASS/VOLUM E] IN SERUM OR PLASMA 129 mg/dL 0 - 150 03/18 Specimen Type: PLASMA No comment entered. Ordering Provider: Nicanor KENNEDY Report Released Date/Time: Mar 18, 2023 09:16 AM Reporting Lab: [address] [address] Performing Lab: [address] [address] [facility] LIPID PANEL (STL) CHOLESTEROL IN LDL [MASS/VOLUM E] IN SERUM OR PLASMA BY CALCULATION 144 mg/dL 03/18 Specimen Type: PLASMA No comment entered. Ordering Provider: Nicanor KENNEDY Report Released Date/Time: Mar 18, 2023 09:16 AM Reporting Lab: [address] [address] Performing Lab: [address] [address] [facility] LIPID PANEL (STL) CHOLESTEROL IN HDL [MASS/VOLUM E] IN SERUM OR PLASMA 49 mg/dL 03/18 Specimen Type: PLASMA No comment entered. Ordering Provider: Nicanor KENNEDY Report Released Date/Time: Mar 18, 2023 09:16 AM Reporting Lab: [address] [address] Performing Lab: [phone] [place] [address] CBOC TSH (MA-PB-STL ) THYROTROPIN [UNITS/VOLU ME] IN SERUM OR PLASMA 0.921 u[IU]/ mL 0.47 - 5 03/18 Specimen Type: SERUM No comment entered. Ordering Provider: Nicanor KENNEDY Report Released Date/Time: Mar 18, 2023 09:16 AM Reporting Lab: [place] [id number] Performing Lab: [place] [id number] [place] [address] CBOC COMPREHENS GUILLERMO METABOLIC PANEL CREATININE [MASS/VOLUM E] IN SERUM OR PLASMA 1.10 mg/dL 0.7 - 1.3 03/10 Specimen Type: PLASMA Comment: K result may show a positive bias due to hemolysis. Specimen slightly hemolyzed. Ordering Provider: NARINDER CARSON Report Released Date/Time: Mar 10, 2023 01:44 PM Reporting Lab: [address] [address] Performing Lab: [place] [address] [facility] [phone] COMPREHENS GUILLERMO METABOLIC PANEL UREA NITROGEN [MASS/VOLUM E] IN SERUM OR PLASMA 8 mg/dL 9 - 25 03/10 L Specimen Type: PLASMA Comment: K result may show a positive bias due to hemolysis. Specimen slightly hemolyzed. Ordering Provider: NARINDER CARSON Report Released Date/Time: Mar 10, 2023 01:44 PM Reporting Lab: [facility] [address] [facility] [address] Performing Lab: [facility] [address] [facility] [address] [facility] COMPREHENS GUILLERMO METABOLIC PANEL GLUCOSE [MASS/VOLUM E] IN SERUM OR PLASMA 84 mg/dL 72 - 99 03/10 Specimen Type: PLASMA Comment: K result may show a positive bias due to hemolysis. Specimen slightly hemolyzed. Ordering Provider: NARINDER CARSON Report Released Date/Time: Mar 10, 2023 01:44 PM Reporting Lab: [facility] [address] [facility] [address] Performing Lab: [facility] [address] [facility] [address] [facility] COMPREHENS GUILLERMO METABOLIC PANEL SODIUM [MOLES/VOLU ME] IN SERUM OR PLASMA 142 meq/L 136 - 145 03/10 Specimen Type: PLASMA Comment: K result may show a positive bias due to hemolysis. Specimen slightly hemolyzed. Ordering Provider: NARINDER CARSON Report Released Date/Time: Mar 10, 2023 01:44 PM Reporting Lab: [facility] [address] [facility] [address] Performing Lab: [facility] [address] [facility] [address] [facility] COMPREHENS GUILLERMO METABOLIC PANEL POTASSIUM [MOLES/VOLU ME] IN SERUM OR PLASMA 4.4 meq/L 3.5 - 5 03/10 Specimen Type: PLASMA Comment: K result may show a positive bias due to hemolysis. Specimen slightly hemolyzed. Ordering Provider: NARINDER CARSON Report Released Date/Time: Mar 10, 2023 01:44 PM Reporting Lab: [facility] [address] [facility] [address] Performing Lab: [facility] [address] [facility] [address] [facility] COMPREHENS GUILLERMO METABOLIC PANEL CHLORIDE [MOLES/VOLU ME] IN SERUM OR PLASMA 107 meq/L 98 - 107 03/10 Specimen Type: PLASMA Comment: K result may show a positive bias due to hemolysis. Specimen slightly hemolyzed. Ordering Provider: NARINDER CARSON Report Released Date/Time: Mar 10, 2023 01:44 PM Reporting Lab: [facility] [address] [facility] [address] Performing Lab: [facility] [address] [facility] [address] [facility] COMPREHENS GUILLERMO METABOLIC PANEL CARBON DIOXIDE, TOTAL [MOLES/VOLU ME] IN SERUM OR PLASMA 25 meq/L 22 - 31 03/10 Specimen Type: PLASMA Comment: K result may show a positive bias due to hemolysis. Specimen slightly hemolyzed. Ordering Provider: NARINDER CARSON Report Released Date/Time: Mar 10, 2023 01:44 PM Reporting Lab: [place] [address] [address] [facility] [address] Performing Lab: [facility] [address] [facility] [address] [facility] COMPREHENS GUILLERMO METABOLIC PANEL CALCIUM [MASS/VOLUM E] IN SERUM OR PLASMA 9.1 mg/dL 8.4 - 10.4 03/10 Specimen Type: PLASMA Comment: K result may show a positive bias due to hemolysis. Specimen slightly hemolyzed. Ordering Provider: NARINDER CARSON Report Released Date/Time: Mar 10, 2023 01:44 PM Reporting Lab: [facility] [address] [facility] [address] Performing Lab: [facility] [address] [facility] [address] [facility] COMPREHENS GUILLERMO METABOLIC PANEL PROTEIN [MASS/VOLUM E] IN SERUM OR PLASMA 6.9 g/dL 6 - 8.6 03/10 Specimen Type: PLASMA Comment: K result may show a positive bias due to hemolysis. Specimen slightly hemolyzed. Ordering Provider: NARINDER CARSON Report Released Date/Time: Mar 10, 2023 01:44 PM Reporting Lab: [facility] [address] [facility] [address] Performing Lab: [facility] [address] [facility] [address] [facility] COMPREHENS GUILLERMO METABOLIC PANEL ALBUMIN [MASS/VOLUM E] IN SERUM OR PLASMA 4.2 g/dL 3.4 - 5 03/10 Specimen Type: PLASMA Comment: K result may show a positive bias due to hemolysis. Specimen slightly hemolyzed. Ordering Provider: NARINDER CARSON Report Released Date/Time: Mar 10, 2023 01:44 PM Reporting Lab: [facility] [address] [facility] [address] Performing Lab: [place] [address] [facility] [address] [facility] COMPREHENS GUILLEROM METABOLIC PANEL BILIRUBIN.T OTAL [MASS/VOLUM E] IN SERUM OR PLASMA 0.5 mg/dL 0.2 - 1.2 03/10 Specimen Type: PLASMA Comment: K result may show a positive bias due to hemolysis. Specimen slightly hemolyzed. Ordering Provider: NARINDER CARSON Report Released Date/Time: Mar 10, 2023 01:44 PM Reporting Lab: [place] [address] [facility] [address] Performing Lab: [facility] [address] [facility] [address] [facility] COMPREHENS GUILLERMO METABOLIC PANEL ALKALINE PHOSPHATASE [ENZYMATIC ACTIVITY/VO LUME] IN SERUM OR PLASMA 83 U/L 40 - 150 03/10 Specimen Type: PLASMA Comment: K result may show a positive bias due to hemolysis. Specimen slightly hemolyzed. Ordering Provider: NARINDER CARSON Report Released Date/Time: Mar 10, 2023 01:44 PM Reporting Lab: [facility] [address] [facility] [address] Performing Lab: [facility] [address] [facility] [address] [facility] COMPREHENS GUILLERMO METABOLIC PANEL ASPARTATE AMINOTRANSF ERASE [ENZYMATIC ACTIVITY/VO LUME] IN SERUM OR PLASMA 31 U/L 5 - 34 03/10 Specimen Type: PLASMA Comment: K result may show a positive bias due to hemolysis. Specimen slightly hemolyzed. Ordering Provider: NARINDER CARSON Report Released Date/Time: Mar 10, 2023 01:44 PM Reporting Lab: [facility] [address] [facility] [address] Performing Lab: [facility] [address] [facility] [address] [place] [address] COMPREHENS GUILLERMO METABOLIC PANEL ALANINE AMINOTRANSF ERASE [ENZYMATIC ACTIVITY/VO LUME] IN SERUM OR PLASMA 33 U/L 8 - 40 03/10 Specimen Type: PLASMA Comment: K result may show a positive bias due to hemolysis. Specimen slightly hemolyzed. Ordering Provider: NARINDER CARSON Report Released Date/Time: Mar 10, 2023 01:44 PM Reporting Lab: [facility] [address] [facility] [address] Performing Lab: [facility] [address] [facility] [phone] [place] [address] COMPREHENS GUILLERMO METABOLIC PANEL GLOMERULAR FILTRATION RATE/1.73 SQ M.PREDICTED [VOLUME RATE/AREA] IN SERUM, PLASMA OR BLOOD BY CREATININE- BASED FORMULA (CKD-EPI 2020) 89.8 03/10 Specimen Type: PLASMA Comment: K result may show a positive bias due to hemolysis. Specimen slightly hemolyzed. Ordering Provider: NARINDER CARSON Report Released Date/Time: Mar 10, 2023 01:44 PM Reporting Lab: [facility] [address] [facility] [address] Performing Lab: [facility] [address] [facility] [address] [facility] Vital Signs Combined list of inpatient [...] ADM Date DC Date Status Disposition Source [facility]( art Team 1007) OUTPATIENT [id number] HARVEY BAPTISTE 07/08 Released with Work/Duty Limitations [facility]( Smart Team 1007) [facility]( art Team 1007) OUTPATIENT [id number] lft knee pain MIKE FORD 07/22 Released with Work/Duty Limitations [facility]( Smart Team 1007) [facility]([place] [facility] Sick Call [facility] 237) OUTPATIENT [id number] L knee BEN BARNETT 08/26 Released with Work/Duty Limitations [facility]( Militar y Sick Call [facility] 237) [facility] [place] S[place] Call [facility] 237) OUTPATIENT [id number] left knee AARTI STOVER 09/15 Released w/o Limitations [facility]( [facility] 237) [facility]([place] S[place] [address]) OUTPATIENT [id number] pt c/o N/V. GUSTAVO SAMAYOA 09/16 Sick at Home/Quarter s [facility] 237) [facility]([place] Sick Call [facility] 237) OUTPATIENT [id number] f/u streap throat PRAMOD ARAUJO 10/03 Released w/o Limitations [facility]( Militar y Sick Call [facility] 237) [facility]([place] S[place] [address]) OUTPATIENT [id number] pt c/o left knee pain since bootcam p. AARTI STOVER 10/10 Released with Work/Duty Limitations [facility] [place] [address]) [facility]([place] S[place] [address]) OUTPATIENT [id number] knee f/u AARTI STOVER 10/20 Released with Work/Duty Limitations [facility] [place] [address]) [facility]([place] S[place] [address]) OUTPATIENT [id number] eval for ffd GUSTAVO SAMAYOA 10/24 Released with Work/Duty Limitations [facility] 237) [facility]([place] S[place] [address]) OUTPATIENT [id number] sore throat AARTI STOVER 10/29 Sick at Home/Quarter s [facility]( [facility] 237) [facility]([place] S[place] [address]) OUTPATIENT [id number] f/u strep AARTI STOVER 10/30 Released w/o Limitations [facility]( [facility] 237) [facility]([place] S[place] [address]) OUTPATIENT [id number] f/u L knee AARTI STOVER 11/18 Released w/o Limitations [facility]( Militar y Sick Call [facility] 237) [facility](Ph ysical Therapy/2 37) OUTPATIENT [id number] BRET VILLA 11/21 Released with Work/Duty Limitations [facility]( Physica l Therapy /237) [facility] [place]) OUTPATIENT [id number] PHYSICA L GUSTAVO VALLE 03/19 Released w/o Limitations [facility]( [facility]) [facility] [place]( [facility] Hearing Conserv[facility] ion) OUTPATIENT [id number] RITCHIE JULES 03/19 Released w/o Limitations [facility]( [facility]) [facility]) OUTPATIENT [id number] KOMAL SYED 03/19 Released w/o Limitations [facility]( [facility]) [facility] [place]( [facility]) OUTPATIENT [id number] SUB PHYS TAMIA DRUMMOND 03/31 Released w/o Limitations [facility]( [facility]) [facility] [place](Gr oton Immunizat ion) OUTPATIENT [id number] Immuniz ations SAM PIRES E 04/08 Released w/o Limitations [facility]( [place] [facility]) [facility] [place]([facility]) OUTPATIENT [id number] SUB DUTY PE SIMON EDMONDSON 05/01 Released with Work/Duty Limitations [facility]( [facility]) OUTPATIENT [id number] mental health clearan SIMON Rosario 07/14 Released with Work/Duty Limitations [facility]( [facility]) [facility]) OUTPATIENT [id number] R Hand injury LIZETH JENKINS 07/17 Released with Work/Duty Limitations [facility]( [facility]) [facility](Immuniz ations [facility]) OUTPATIENT [id number] ppd/flu mist PASQUALE PLASCENCIA 08/28 Released w/o Limitations [facility](Imm unizati ons [facility] ) [facility](Immuniz ations [facility]) OUTPATIENT [id number] ppd read JAZZ DAVIS 08/31 Released w/o Limitations [facility](Imm unizati ons [facility] ) [facility] ER, DIRECT TO [facility] [id number] ANA HANLEY Nicanor 01/15 RETURNED TO DUTY [facility](Nutriti on NMCP) INPATIENT [id number] CHIDI Sterling 01/19 Inpatient- Still a Patient [facility](Nut rition NMCP) [facility](Nutriti on NMCP) INPATIENT [id number] TF f/u CHIDI ROBERT 01/24 Inpatient- Still a Patient [facility](Nut rition NMCP) [facility](Infecti ous Disease NMCP) INPATIENT [id number] TETO GARCÍA 01/26 Inpatient- Still a Patient [facility](Inf ectious Disease NMCP) [facility](Nutriti on NMCP) INPATIENT [id number] TF f/u CHIDI ROBERT 01/27 Inpatient- Still a Patient [facility](Nut rition NMCP) [facility](Infecti ous Disease NMCP) INPATIENT [id number] ELIEL TANG 01/27 Inpatient- Still a Patient [facility](Inf ectious Disease NMCP) [facility](Cardiol ogy NMCP) INPATIENT [id number] LUZMARIA Gaming 01/28 Inpatient- Still a Patient [facility](Car diology NMCP) [facility](Social Work NMCP) INPATIENT [id number] Psycho- social assessm ent HECTOR DODGE 02/03 Inpatient- Still a Patient [facility](Soc ial Work NMCP) [facility] [place] [facility](Speech Pathology NMCP) INPATIENT [id number] Evaluat e for Ki Reilly Angela smith Valve JENNIFERALLISONShalom Hernandez 02/07 Inpatient- Still a Patient [facility](Spe ech Patholo gy NMCP) [facility] [place](Speech Pathology NMCP) INPATIENT [id number] AVM JENNIFERALLISONA H 02/08 Inpatient- Still a Patient [facility](Spe ech Patholo gy NMCP) [facility] [place](Speech Pathology NMCP) INPATIENT [id number] JENNIFER ODALIS H 02/09 Inpatient- Still a Patient [facility](Spe ech Patholo gy NMCP) [facility] [place] [facility](Speech Pathology NMCP) INPATIENT [id number] JENNIFERALLISONA H 02/10 Inpatient- Still a Patient [facility](Spe ech Patholo gy NMCP) [facility] [place] [facility](Occ Therapy NMCP[facility]PATIENT [id number] [facility] Inpatient- Still a Patient [facility](Occ Therapy NMCP) [facility](Occ Therapy NM[facility]) INPATIENT [id number] [facility] 02/14 [facility]- [facility](Occ Therapy NMCP) [facility]PAT[facility] [id number] [facility] Inpatient- Still a Patient [facility](Occ Therapy NMCP) [facility](Nutriti on NMCP) INPATIENT [id number] GALAYOLANDA A 02/15 Inpatient- Still a Patient [facility](Nut rition NMCP) [facility] [place] [facility](Occ Therapy NMCP) INPATIENT [id number] [facility] 02/16 Inpatient- Still a Patient [facility](Occ Therapy NMCP) [facility] [place] [facility](Speech Pathology NMCP) INPATIENT [id number] Re assess Swallow functio n ODALIS RODRIGUEZ H 02/16 Inpatient- Still a Patient [facility](Spe ech Patholo gy NMCP) [facility](Occ Therapy NMCP) INPATIENT [id number] inp JAZZ Moe 02/16 Inpatient- Still a Patient [facility](Occ Therapy NMCP) [facility](Speech Pathology NMCP) INPATIENT [id number] ODALIS RODRIGUEZ H 02/16 Inpatient- Still a Patient [facility](Spe ech Patholo gy NMCP) [facility] [place] [facility](Speech Pathology NMCP) INPATIENT [id number] Dysphag ia tx ODALIS RODRIGUEZ H 02/17 Inpatient- Senior Living Facility [facility](Spe ech Patholo gy NMCP) [facility] [place] [facility](Case Managemen t [facility] [place] [facility]) OUTPATIENT [id number] CASE MANAGEM ENT LONG, IVANNA S 03/08 Released w/o Limitations [facility](Dajuan e Managem ent [facility]) [facility] [place] [facility](Case Managemen t [facility] [place] [facility]) OUTPATIENT [id number] CASE MANAGEM ENT LONG, IVANNA S 03/09 Released w/o Limitations [facility] [place](Dajuan e Managem ent [facility]) [facility] [place] [facility](Case Mgmt Active Duty (AD)) OUTPATIENT [id number] CASE MANAGEM ENT LONG, IVANNA S 03/10 Released w/o Limitations [facility](Dajuan e Mgmt Active Duty (AD)) [facility] [place] [facility](Case Mgmt Active Duty (AD)) OUTPATIENT [id number] LONG, IVANNA S 03/14 Released w/o Limitations [facility](Dajuan e Mgmt Active Duty (AD)) [facility] [place] [facility](Case Mgmt Active Duty (AD)) OUTPATIENT [id number] CASE MANAGEM ENT LONG, IVANNA S 03/15 [facility] w/o Limitations [facility](Dajuan e Mgmt Active Duty (AD)) [facility] [place] [facility](Case Managemen t [facility] [place] [facility]) OUTPATIENT [id number] CASE MANAGEM ENT LONG, IVANNA S 03/17 Released w/o Limitations [facility](Dajuan e Managem ent [facility]) [facility] [place] [facility](Case Mgmt Active Duty (AD)) OUTPATIENT [id number] CASE MANAGEM ENT IVANNA CORTÉS S 03/18 Released w/o Limitations [facility](Dajuan e Mgmt Active Duty (AD)) [facility] [place] [facility](Neurosu rgery NMCP) OUTPATIENT [id number] preangi o for 04/11/dc from [facility]/me n leave ANA HANLEY 03/25 Released w/o Limitations [facility](William rosurge ry NMCP) [facility] [place] [facility]) OUTPATIENT [id number] bump under R armpit x 3 days MARYLU HODGES 04/05 Released w/o Limitations [facility] ) [facility] [place] [facility] DIRECT TO MTF FROM OTHER THAN ER OR [facility] [id number] EDUIN TORRES RACHEL 04/11 [employer] [facility] [place] [facility](Neurosu rgery NMCP) OUTPATIENT [id number] f/u after angiogr am 04/11 ANA HANLEY 04/14 Released w/o Limitations [facility](William rosurge ry NMCP) [facility] [place] [facility] ADMISSION RESULTING FROM [facility], DIRECT TO MTF [id number] ANA HANLEY 04/19 RETURNED TO DUTY [facility] [place] [facility](Neurosu rgery NMCP) TELE CONSULT [id number] please call pt post surgery . Dr.Cobe brown, perform ed surgery 2 weeks ago. CHELSEA NEAL 05/06 [facility](William rosurge ry NMCP) [facility] [place](Case Managemen t [facility] [place] [facility]) OUTPATIENT [id number] Case Managem ent IVANNA CORTÉS S 05/06 Released w/o Limitations [facility](Dajuan e Managem ent [facility] [place] [facility](Neurosu rgery NMCP) TELE CONSULT [id number] pt would like for you to call him back, did not give details as to why. CHELSEA NEAL 05/23 [facility](William rosurge ry NMCP) [facility] [place] [facility](Neurosu rgery NMCP) OUTPATIENT [id number] 1st post op f/u; no xrays ANA HANLEY 05/31 Released w/o Limitations [facility](William rosurge ry NMCP) [facility] [place] [facility](Neurosu rgery NMCP) TELE CONSULT [id number] QUESTIO N FOR YOU CHELSEA NEAL 06/22 [facility](William rosurge ry NMCP) [facility] [place] [facility]) OUTPATIENT [id number] c/o hang nail ingrown on lt foot 3 wks ANUJ BONE 06/28 Released w/o Limitations [facility] ) [facility](Neurosu rgery NMCP) TELE CONSULT [id number] Med board CHELSEA NEAL 07/22 [facility](William rosurge ry NMCP) [facility](Neurosu rgery NMCP) TELE CONSULT [id number] Questio n CHELSEA NEAL 08/03 [facility](William rosurge ry NMCP) [facility] [place] (Case Mgmt Active Duty (AD)) OUTPATIENT [id number] Case Managem ent IVANNA CORTÉS S 08/16 Released w/o Limitations [facility](Dajuan e Mgmt Active Duty (AD)) [facility] [place] [facility](Case Mgmt Active Duty (AD)) OUTPATIENT [id number] Case Managem ent IVANNA CORTÉS S 08/17 [facility]ased w/o Limitations [facility] [facility](Dajuan e Mgmt Active Duty (AD)) [facility] [place] [facility](Case Mgmt Active Duty (AD)) OUTPATIENT [id number] Case Managem ent IVANNA CORTÉS S 08/18 Released w/o Limitations [facility](Dajuan e Mgmt Active Duty (AD)) [facility] [place] [facility](Case Mgmt Active Duty (AD)) OUTPATIENT [id number] Case Managem ent IVANNA CORTÉS S 08/19 Released w/o Limitations [facility](Dajuan e Mgmt Active Duty (AD)) [facility] [place] [facility]) OUTPATIENT [id number] poss strep throat 2 days. TAMIA BALTAZAR 08/26 Released w/o Limitations [facility] ) [facility] [place]) OUTPATIENT [id number] sore throat, weaknes s x 8 days; already seen but not better DAKOTA MCCORMICK 09/01 Released w/o Limitations [facility] ) [facility] [place] [facility](Hearing Cons [place]) OUTPATIENT [id number] PAL MCLEOD 09/05 Released w/o Limitations [facility](Hea ring Cons [place] [employer]) [facility](Immuniz ations [facility] [place]) OUTPATIENT [id number] ppd/flu mist KAREEN ARMENDARIZ 09/05 Released w/o Limitations [facility](Imm unizati ons [facility] [place] ) [facility] [place] [facility](Case Mgmt Active Duty (AD)) OUTPATIENT [id number] Case Managem ent IVANNA CORTÉS S 09/05 Released w/o Limitations [facility](Dajuan e Mgmt Active Duty (AD)) [facility](Immuniz ations [facility]) OUTPATIENT [id number] ppd check JESSICA SOSA 09/07 Released w/o Limitations [facility](Imm unizati ons [facility] ) [facility](Neurosu rgery NMCP) OUTPATIENT [id number] f/u EDUIN TORRES 10/04 Released with Work/Duty Limitations [facility](William rosurge ry NMCP) [facility], [place]) OUTPATIENT [id number] part 2 [place] Silvia 10/06 Released w/o Limitations [facility] [place] [place] [facility] [place] [facility](Neurosu rgery NMCP) TELE CONSULT [id number] DR. HANLEY PATIENT CHELSEA NEAL 10/20 [place](William rosurge ry NMCP) [facility] [place] [facility](Case Mgmt Active Duty (AD)) OUTPATIENT [id number] Case Managem ent IVANNA CORTÉS 10/26 Released w/o Limitations [facility](Dajuan e Mgmt Active Duty (AD)) [facility] [place] [facility](Occ Therapy NMCP) OUTPATIENT [id number] [facility] DELETE_MEREDITH SEN 10/26 Released w/o Limitations [facility] [place]Occ Therapy NM[place]) [facility] [place] [facility](Occ Therapy NMCP) OUTPATIENT [id number] LILI MONTES 10/31 Released w/o Limitations [facility] [place]Occ Therapy NMCP) [facility] [place] [facility](Occ Therapy NMCP) OUTPATIENT [id number] PAULO CORTÉS 11/02 Released w/o Limitations [facility] [place] [place]Occ Therapy NMCP) [facility] [place] [facility](Neurosu rgery NMCP) TELE CONSULT [id number] Letter CHELSEA NEAL 11/04 [facility](William rosurge ry NMCP) [facility] [place] [facility](Occ Therapy NMCP) OUTPATIENT [id number] PAULO CORTÉS 11/07 Released w/o Limitations [facility] [place](Occ Therapy NMCP) [facility] [place] [facility](Occ Therapy NMCP) OUTPATIENT [id number] LILI MONTES 11/09 Released w/o Limitations [facility] [place](Occ Therapy NMCP) [facility] [place] [facility](Neurosu rgery NMCP) OUTPATIENT [id number] EDUIN TORRES 11/10 Released with Work/Duty Limitations [facility] [place](William rosurge ry NMCP) [facility] [place] [facility]) OUTPATIENT [id number] Headach es since Sep 2008 DENISE BUSH Shalom 11/16 Released w/o Limitations [facility](Mil AC [facility] ) [facility] [place] [facility](Neurosu rgery NMCP) TELE CONSULT [id number] dr torres patient . HAN SHAH 11/16 [facility](William rosurge ry NMCP) [facility] [place] [facility](Occ Therapy NMCP) OUTPATIENT [id number] LILI MONTES 11/17 Released w/o Limitations [facility](Occ Therapy NMCP) [facility] [place](Neurosu rgery NMCP) TELE CONSULT [id number] pt status post brain hemmora ge now having difficu lt painful swallow ing. HAN SHAH 11/21 [facility](William rosurge ry NMCP) [facility] [place](Occ Therapy NMCP) OUTPATIENT [id number] LILI MONTES 11/21 Released w/o Limitations [facility](Occ Therapy NMCP) [facility] [place] [facility](Case Mgmt Active Duty (AD)) OUTPATIENT [id number] Case Managem ent IVANNA CORTÉS 11/23 Released w/o Limitations [facility](Dajuan e Mgmt Active Duty (AD)) [facility] [place] [facility](Occ Therapy NMCP) OUTPATIENT [id number] PAULO CORTÉS 11/23 Released w/o Limitations [facility](Occ Therapy NMCP) [facility] [place]) OUTPATIENT [id number] H/A since Sep ZAINAB SHETH 11/24 Released w/o Limitations [facility] ) [facility] [place] [facility](Occ Therapy NMCP) OUTPATIENT [id number] MEREDITH ABDULLAHI 11/25 Released w/o Limitations [facility] [place] [facility](Occ Therapy NMCP) [facility] [place] [facility](Case Mgmt Active Duty (AD)) OUTPATIENT [id number] Case Managem ent IVANNA CORTÉS S 12/26 Released w/o Limitations [facility] [place]ajuan e Mgmt Active Duty (AD)) [facility] [place](Neurosu rgery NMCP) TELE CONSULT [id number] Hi patient CHELSEA NEAL 01/19 [facility] [place]William rosurge ry NMCP) [facility] [place](Case Mgmt Active Duty (AD)) OUTPATIENT [id number] Case Managem IVANNA Slade S 01/23 Released w/o Limitations [facility] [place](Dajuan e Mgmt Active Duty (AD)) [facility] [place]([employer]) OUTPATIENT [id number] 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 LATONYA MARADIAGA 02/02 Released w/o Limitations [facility] [place]hy [facility] [employer] ) [facility] [place](Duplicating Machine Mechanic Aquatic Team NMCP) OUTPATIENT [id number] RENEE GREENWOOD 02/16 Released w/o Limitations [facility] [place](Phy s Ther Aquatic Team NMCP) [facility] [place]([employer]) OUTPATIENT [id number] HARVEY KONG 02/24 Released w/o Limitations [facility] [place] [place] [employer] ) [facility] [place](Case Mgmt Active Duty (AD)) OUTPATIENT [id number] Case Managem IVANNA Slade S 02/24 Released w/o Limitations [facility] [place](Dajuan e Mgmt Active Duty (AD)) [facility] [place]([employer]) OUTPATIENT [id number] NORAH JIMENEZ V 02/28 Released w/o Limitations [facility] [place]([employer] [employer] ) [facility] [place] [facility]([employer]) OUTPATIENT [id number] HARVEY KONG 03/01 Released w/o Limitations [facility] [place]([employer] [employer] ) [facility] [place] [facility](Case Mgmt Active Duty (AD)) OUTPATIENT [id number] Case Managem IVANNA Slade S 03/03 Released w/o Limitations [facility] [place](Dajuan e Mgmt Active Duty (AD)) [facility] [place] [facility]([employer]) OUTPATIENT [id number] HARVEY KONG 03/06 Released w/o Limitations [facility] [place] [employer] ) [facility] [place] [facility]([employer]) OUTPATIENT [id number] HARVEY KONG 03/13 Released w/o Limitations [facility] [place]([employer] [employer] ) [facility] [place] [facility]([employer]) OUTPATIENT [id number] DYLLAN JIMENEZICA V 03/14 Released w/o Limitations [facility] [place] [employer] ) [facility] [place] [facility]([employer]) OUTPATIENT [id number] HARVEY KONG 03/15 Released w/o Limitations [facility] [place] [employer] ) [facility] [place]([employer]) OUTPATIENT [id number] JIMENEZNORAH V 03/21 Released w/o Limitations [facility] [place]([employer] [employer] ) [facility] [place] [facility]([employer]) OUTPATIENT [id number] HARVEY KONG 03/27 Released w/o Limitations [facility] [place] [employer] ) [facility] [place] [facility]([employer]) OUTPATIENT [id number] ELVIA JEFFERS 04/12 Released w/o Limitations [facility] [place]([employer] ) [facility] [place] [facility]([employer]) OUTPATIENT [id number] ELVIA JEFFERS 04/14 Released w/o Limitations [facility] [place]([employer] ) [facility] [place] [facility](Case Mgmt Active Duty (AD)) OUTPATIENT [id number] Case Managem ent IVANNA CORTÉS 04/17 Released w/o Limitations [facility] [place](Dajuan e Mgmt Active Duty (AD)) [facility] [place](Neurosu rgery NMCP) TELE CONSULT [id number] pt has shashank boucher medical board HAN SHAH 05/22 [facility](William rosurge ry NMCP) [facility]gery [facility]) OUTPATIENT [id number] f/u for med boards ANA HANLEY 05/24 Released w/o Limitations [facility](William rosurge ry NMCP) [facility] [place] [facility](Case Mgmt Active Duty (AD)) OUTPATIENT [id number] Case Managem ent IVANNA CORTÉS S 05/29 Released w/o Limitations [facility](Dajuan e Mgmt Active Duty (AD)) [facility] [place] OUTPATIENT [id number] CHRIS Bartholomew S 06/01 Released w/o Limitations [facility](Phy s Exam [place]) [facility](Hearing Cons [employer]) OUTPATIENT [id number] SIDNEY DICKERSON 06/01 Released w/o Limitations [facility](Hea ring Cons [employer]) [facility]) OUTPATIENT [id number] sore throat x 4 days MEREDITH PAGE 06/16 Sick at Home/Quarter s [facility] ) [facility](Neurosu rgery NMCP) TELE CONSULT [id number] prabhakar fontenot. would like to discuss med board. info cnt#[id number] [id number] ÁNGEL CHELSEA L 06/23 [facility](William rosurge ry NMCP) [facility](Case Mgmt Active Duty (AD)) OUTPATIENT [id number] Case Managem ent IVANNA CORTÉS S 08/01 Released w/o Limitations [facility](Dajuan e Mgmt Active Duty (AD)) [facility] [place]) OUTPATIENT [id number] RIGHT WRIST PAIN ZAINAB SHETH 08/02 Released w/o Limitations [facility] [place] ) [facility] [place] (Optomet ry [employer]) OUTPATIENT [id number] eye exam DOROTHY SUHN 08/04 Released w/o Limitations [facility](Opt ometry [employer]) [facility](Immuniz ation NMCP) OUTPATIENT [id number] Adult Imms - Flumist LISA PRASAD N P 08/17 Released w/o Limitations [facility](Imm unizati on NMCP) [facility](Neurosu rgery NMCP) TELE CONSULT [id number] Dr.Cobe brown pt. Mrs. Harvey rubio of Med Boards request ing consult for pt. CHELSEA NEAL Mahin 08/28 [facility](William rosurge ry NMCP) [facility](Neurosu rgery NMCP) TELE CONSULT [id number] PEB request PT HAN SHAH 09/04 [facility](William rosurge ry NMCP) [facility](Duplicating Machine Mechanic NMPS) OUTPATIENT [id number] TAMIA CARMONA 09/05 Released w/o Limitations [facility](Phy s Ther [place]PS) [facility](Occ Therapy NMCP) OUTPATIENT [id number] AVM PAL Powell 09/12 Released w/o Limitations [facility](Occ Therapy NMCP) [facility](Case Mgmt Active Duty (AD)) OUTPATIENT [id number] Case Managem ent IVANNA CORTÉS 09/21 Released w/o Limitations [facility](Dajuan e Mgmt Active Duty (AD)) [facility] [id number] UPDATE LIMITED PROFILE FOR ZAINAB JACOME 11/01 Released w/o Limitations [facility](Immuniz ations [facility]) OUTPATIENT [id number] VACCINE S WILTON SILVA 11/15 Released w/o Limitations [facility](Imm unizati ons [facility] ) [facility](Immuniz ations [facility]) OUTPATIENT [id number] vaccine JESSICA SOSA D 11/21 Released w/o Limitations [facility](Imm unizati ons [facility] ) [facility]([place]) OUTPATIENT [id number] MEDICAL ASSIGNM ENT SCREEN (STANDB Y) KERRI TREJO 11/24 Released w/o Limitations [facility](Ove rseas Screeni ng [place] ) [facility]) OUTPATIENT [id number] Pain in tonsils /throat , hot flashes IRENE FERGUSON 11/28 Released w/o Limitations [facility] ) [facility](Neurosu rgery NMCP) TELE CONSULT [id number] pt's [place] would like to speak with Dr Hanley [phone] CHELSEA SHINE 11/30 [facility](William rosurge ry NMCP) [facility](Neurosu rgery NMCP) OUTPATIENT [id number] f/u ANA HANLEY 12/01 Released w/o Limitations [facility](William rosurge ry NMCP) [facility](Primary Care [facility]) OUTPATIENT [id number] R MAGAÑA PAIN ZAINAB SHETH T 12/05 Released w/o Limitations [facility] ) [facility](Case Mgmt Active Duty (AD)) OUTPATIENT [id number] Case Managem ent LONGIVANNA S 12/15 Released w/o Limitations [facility](Dajuan e Mgmt Active Duty (AD)) [facility](Immuniz ations [facility]) OUTPATIENT [id number] vaccine CIERA FOREMAN 01/09 Released w/o Limitations [facility](Imm unizati ons [facility] ) [facility]) OUTPATIENT [id number] Chest Pain EMMA WHALEY 01/17 Released w/o Limitations [facility] ) [facility]) OUTPATIENT [id number] Injured right foot during PT x 5 days AYAD JEAN Son 02/21 Released w/o Limitations [facility] ) [facility](Primary Care [facility]) OUTPATIENT [id number] f/u xray results ZAINAB SHETH 03/06 Released w/o Limitations [facility] ) [facility](Neurosu afshin NMCP) TELE CONSULT [id number] Dr Hanley Pt . needs form stating he can fly. Pt leaving [place] on 7[place]6 ÁNGEL, CHELSEA L 03/26 [facility](William rosurge ry NMCP) [facility]) OUTPATIENT [id number] sore throat EMMA WHALEY EDWARD 03/28 Released w/o Limitations [facility] ) [facility]) OUTPATIENT [id number] seen yesterd ay for sorethr oat today throat is worse BRENT HARRISON 03/29 Released w/o Limitations [facility] ) [facility](Immuniz ations [facility]) OUTPATIENT [id number] vaccine JAZZ DAVIS 05/09 Released w/o Limitations [facility](Imm unizati ons [facility] ) [facility](Primary Care Clinic [facility]) OUTPATIENT [id number] R FOOT EVALUAT ION ZAINAB SHETH 05/15 Released w/o Limitations [facility] ) [facility](Immuniz ations [facility]) OUTPATIENT [id number] vaccine KAREEN ARMENDARIZ 05/21 Released w/o Limitations [facility](Imm unizati ons [facility] [place] ) [facility](Phys Exam [place]) OUTPATIENT [id number] SEPARAT ION PHYSICA L [id number] CHRIS CHONG 05/22 Released w/o Limitations [facility](Phy s Exam [place]) [facility](Neurosu rgery NMCP) TELE CONSULT [id number] Pt c/o of more frequen t paralys is, since surgery . 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 CASEHAN 08/01 [facility](William rosurge ry NMCP) [facility] Outpatient Encounter [id number] 05/23 [facility] En[facility] [id number] 05/29 [facility] Outpatient Encounter [id number] 07/05 [facility] O/P EST MOD 30 MIN [id number] Diagnos is: ICD-10- CM G40.89 Other seizure s Radha OSBORNE UAN 10/07 [facility] Out[facility] Encounter [id number] 10/08 [facility] OFF[facility] O/P EST MOD 30 MIN [id number] Diagnos is: ICD-10- CM 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, site unspeci HARI Hale 12/29 [facility] Outpatient Encounter [id number] 03/16 [facility] Outpatient Encounter [id number] CHRISTINE SALDIVAR 03/18 [facility] O/P EST LOW 20 MIN [id number] Diagnos is: ICD-10- CM Z00.00 Encntr for general adult medical exam w/o abnorma l finding s Nicanor KENNEDY L 03/18 [facility] Outpatient Encounter [id number] 04/07 [facility] Outpatient Encounter [id number] 07/13 [facility] Outpatient Encounter [id number] 09/09 [facility] Procedures Combined list of: 1) Procedures from Department of [facility] Affairs facilities going back up to thelast 18 months, not all VA non-surgical procedures are included; 2) All procedures from the Department of Defense facilities. Procedure Procedure Type Code Date Perfomer Comments Sourc e PT A e ment Kinetic Training PT Assessment Kinetic Training 41401 2007 JAZZ CARTER Patient Training And Self-Care Skills Patient Training And Self-Care Skills 15374 2007 JAZZ CARTER A isted Exercises For ROM Assisted Exercises For ROM 67135 2007 JAZZ CARTER Treatment Of Swallowing Dysfunction Treatment Of Swallowing Dysfunction 41342 2007 ODALIS RODRIGUEZ MD Supervised Individual Speech/Hearing Therapy 2007 ODALIS RODRIGUEZ Treatment Of Swallowing Dysfunction Treatment Of Swallowing Dysfunction 30814 2007 JENNIFER ODALIS H [facility] Tracheostomy speaking valve 2007 ALLISON RODRIGUEZShalom Hernandez [facility] Evaluation of Speech / Hearing Problem 2007 ALLISON RODRIGUEZShalom Hernandez [facility] Evaluation Of Swallowing And Oral Function Evaluation Of Swallowing And Oral Function 26990 2007 JENNIFERODALIS [facility] Tracheostomy speaking valve 2007 JENNIFER ODALIS H [facility] Health And Behav A e mt Each 15 Min Initial A e ment Health And Behav Assessmt Each 15 Min Initial Assessment 35515 2007 HECTOR DODGE [facility] Medical Nutrition Therapy Re-a e ment And Intervention Each 15 Minutes Medical Nutrition Therapy Re-assessment And Intervention Each 15 Minutes 39064 2007 CHIDI ROBERT [facility] Medical Nutrition Therapy Re-a e ment And Intervention Each 15 Minutes Medical Nutrition Therapy Re-assessment And Intervention Each 15 Minutes 40664 2007 CHIDI ROBERT [facility] Medical Nutrition Therapy Re-a e ment And Intervention Each 15 Minutes Medical Nutrition Therapy Re-assessment And Intervention Each 15 Minutes 91552 2007 CHIDI ROBERT [facility] Immunization Admin By Intranasal / Oral Route One Vaccine Immunization Admin By Intranasal / Oral Route One Vaccine 74110 2006 PASQUALE PLASCENCIA [facility] Influenza Virus Vaccine Intranasal Live Attenuated 2006 PASQUALE PLASCENCIA [facility] Skin Test Anergy Tuberculin Intradermal Skin Test Anergy Tuberculin Intradermal 22631 2006 PASQUALE PLASCENCIA [facility] Psychotherapy Individual Approximately 30 Minutes Psychotherapy Individual Approximately 30 Minutes 45813 2006 ALESSIA TAN [facility] Psychiatric Diagnostic Evaluation Comprehensive Examination Psychiatric Diagnostic Evaluation Comprehensive Examination 30401 2006 ALESSIA TAN [facility] Hepatitis A And Hepatitis B (Intramuscular Use) Adult Dosage Hepatitis A And Hepatitis B (Intramuscular Use) Adult Dosage 89305 2006 ROQUE WHITNEY [facility] Immunization Administration By Injection, One Vaccine Immunization Administration By Injection, One Vaccine 80335 2006 ROQUE WHITNEY [facility] Threshold Audiogram (Pure Tone) Threshold Audiogram (Pure Tone) 30302 2006 KOMAL SYED [facility] Audiogram (Screening) Audiogram (Screening) 48375 2006 RITCHIE YOUNG Ophthalmological New Patient Start Comprehensive Care Ophthalmological New Patient Start Comprehensive Care 47851 2006 GUSTAVO VALLE Determination Of Refractive State Determination Of Refractive State 83791 2006 GUSTAVO VALLE A isted Exercises For ROM Assisted Exercises For ROM 75309 2006 BRET VILLA PT A e ment Kinetic Training Initial 30 Minutes PT Assessment Kinetic Training Initial 30 Minutes 79097 2006 BRET VILLA Physical Medicine - Group Physical Therapy Se ion Physical Medicine - Group Physical Therapy Session 73259 2006 BRET VILLA Psychiatric Therapy Environmental Intervention Psychiatric Therapy Environmental Intervention 00309 2006 LEMUEL SAMPSON Psychotherapy Individual Approximately 30 Minutes Psychotherapy Individual Approximately 30 Minutes 96083 2006 LEMUEL SAMPSON Psychologic Testing And Report Administered By Computer Psychologic Testing And Report Administered By Computer 98372 2006 LEMUEL SAMPSON Psychiatric Diagnostic Evaluation Comprehensive Examination Psychiatric Diagnostic Evaluation Comprehensive Examination 77272 2006 LEMUEL SAMPSON Skin Test Anergy Tuberculin Intradermal Skin Test Anergy Tuberculin Intradermal 27300 2009 KAREEN ARMENDARIZ [facility] Skin Test Anergy Tuberculin Intradermal Skin Test Anergy Tuberculin Intradermal 72135 2009 JAZZ DAVIS Electrocardiogram Electrocardiogram 69600 01/17 EMMA WHALEY [facility] Skin Test Anergy Tuberculin Intradermal Skin Test Anergy Tuberculin Intradermal 88947 2009 CIERA FOREMAN Coordinated care fee, risk adjusted maintenance 2009 IVANNA CORTÉS [facility] Case Management, each 15 minutes 2009 IVANNA CORTÉS [facility] Influenza Virus Vaccine Pandemic Formulation Influenza Virus Vaccine Pandemic Formulation 94998 2009 WILTON SILVA Immunization Admin By Intranasal / Oral Route One Vaccine Immunization Admin By Intranasal / Oral Route One Vaccine 34672 2009 WILTON SILVA Immunization Administration By Injection, Each Additional Vaccine 2009 WILTON SILVA Typhoid Vaccine Vi Capsular Polysaccharide, For Intramus Use Typhoid Vaccine Vi Capsular Polysaccharide, For Intramus Use 04481 2009 WILTON SILVA [facility] Skin Test Anergy Tuberculin Intradermal Skin Test Anergy Tuberculin Intradermal 76231 2009 WILTON SILVA [facility] Coordinated care fee, risk adjusted maintenance, Level 4 2009 LYDIA CORTÉSA S [facility] Case Management, each 15 minutes 2009 LONGLYDIAA S [facility] Occupational Therapy Evaluation Occupational Therapy Evaluation 39069 2008 PAL NIEVES 30 min [facility] Physical Therapy Service Re-Evaluation Physical Therapy Service Re-Evaluation 31268 2008 TAMIA CARMONA [facility] Influenza Virus Vaccine Intranasal Live Attenuated 2008 HEIDE PRASAD [facility] Immunization Admin By Intranasal / Oral Route One Vaccine Immunization Admin By Intranasal / Oral Route One Vaccine 61533 2008 HEIDE PRASAD [facility] Coordinated care fee, risk adjusted maintenance, Level 4 2008 MOO IVANNA S [facility] Spectacles Services Fitting Monofocal Except For Aphakia Spectacles Services Fitting Monofocal Except For Aphakia 43017 2008 DOROTHY SUH VAElin [facility] Determination Of Refractive State Determination Of Refractive State 58669 2008 DOROTHY SUH VAElin [facility] Ophthalmological New Patient Start Comprehensive Care Ophthalmological New Patient Start Comprehensive Care 55954 2008 DOROTHY SUH VAElin [facility] Physician Supervised Specimen Handling / Transfer: Office To Lab Physician Supervised Specimen Handling / Transfer: Office To Lab 97120 2008 MEREDITH PAGE [facility] Coordinated care fee, risk adjusted maintenance, Level 4 2008 MOO IVANNA S [facility] Case Management, each 15 minutes 2008 MOO IVANNA S [facility] Audiogram (Screening) Audiogram (Screening) 15975 2008 SIDNEY DICKERSON [facility] Audiometry Group Testing Audiometry Group Testing 53998 2008 SIDNEY DICKERSON [facility] Coordinated care fee, risk adjusted maintenance, Level 4 2008 MOO IVANNA S [facility] Case Management, each 15 minutes 2008 MOO IVANNA S [facility] Physical Therapy: ___ Se ion Segments, 15 Minutes Each Physical Therapy: ___ Session Segments, 15 Minutes Each 72486 2008 ELVIA JEFFERS M x 20 mins DoD Physical Therapy: ___ Se ion Segments, 15 Minutes Each Physical Therapy: ___ Session Segments, 15 Minutes Each 72082 2008 ELVIA JEFFERS x 30 mins DoD Phys Therapy Education Self Care Training - Per 15 Minutes Phys Therapy Education Self Care Training - Per 15 Minutes 83869 2008 HARVEY KONG [facility] Physical Therapy: ___ Se ion Segments, 15 Minutes Each Physical Therapy: ___ Session Segments, 15 Minutes Each 65320 2008 NORAH JIMENEZ V DoD Aquatic Exercises Aquatic Exercises 59310 03/15 NORAH JIMENEZ V DoD Phys Therapy Education Self Care Training - Per 15 Minutes Phys Therapy Education Self Care Training - Per 15 Minutes 88792 2008 HARVEY KONG Phys Therapy Education Self Care Training - Per 15 Minutes Phys Therapy Education Self Care Training - Per 15 Minutes 77711 2008 HARVEY KONG Phys Therapy Education Self Care Training - Per 15 Minutes Phys Therapy Education Self Care Training - Per 15 Minutes 62631 2008 HARVEY KONG [facility] Coordinated care fee, risk adjusted maintenance, Level [...] Self Care Training - Per 15 Minutes 07593 2008 HARVEY KONG [facility] Aquatic Exercises Aquatic Exercises 19739 02/28 NORAH JIMENEZ V [facility] Phys Therapy Education Self Care Training - Per 15 Minutes Phys Therapy Education Self Care Training - Per 15 Minutes 13009 2008 HARVEY KONG [facility] Aquatic Exercises Aquatic Exercises 89244 02/16 RENEE GREENWOOD [facility] Physical Therapy Service Evaluation Physical Therapy Service Evaluation 66582 2008 LATONYA MARADIAGA [facility] Coordinated care fee, risk adjusted maintenance, Level 4 2008 LONG, IVANNA S DoD Case Management, each 15 minutes 2008 LONG, IVANNA S DoD Coordinated care fee, risk adjusted maintenance, Level 4 2008 LONG, IVANNA S DoD Case Management, each 15 minutes 2008 MOOLYDIAA S [facility] Occupational Therapy Re-Evaluation Occupational Therapy Re-Evaluation 86903 2008 MEREDITH LOMELI [facility] PT A e ment Kinetic Training PT Assessment Kinetic Training 29945 2008 MOO PAULO A DoD Coordinated care fee, risk adjusted maintenance, Level 3 2008 LONGLYDIAA S DoD Case Management, each 15 minutes 2008 MOOLYDIAA S DoD PT A e ment Kinetic Training PT Assessment Kinetic Training 11633 2008 LILI MONTES PT A e ment Kinetic Training PT Assessment Kinetic Training 46007 2008 LILI MONTES PT A e ment Kinetic Training PT Assessment Kinetic Training 77681 2008 LILI MONTES Psychometric Neuropsych Testing Battery Admin By Physician Psychometric Neuropsych Testing Battery Admin By Physician 60731 2008 MONICA WATSON [facility] PT A e ment Kinetic Training PT Assessment Kinetic Training 52457 2008 MOO PAULO A Martín PT A e ment Kinetic Training PT Assessment Kinetic Training 77720 2008 MOO PAULO A DoD PT A e ment Kinetic Training PT Assessment Kinetic Training 49134 2008 PAULO CORTÉS Psychometric Neuropsych Testing Battery Admin By Physician Psychometric Neuropsych Testing Battery Admin By Physician 61879 2008 JATINDER GARCIA Psychometric Neuropsych Testing Battery Admin By Collision Repairer Psychometric Neuropsych Testing Battery Admin By Collision Repairer 32298 2008 JATINDER GARCIA [facility] A isted Exercises For ROM Assisted Exercises [place] ROM 74435 2008 TIAGOTEMEREDITH IZAGUIRRE Patient Training And Self-Care Skills Patient Training And Self-Care Skills 20250 2008 MEREDITH LOMELI Occupational Therapy Evaluation Occupational Therapy Evaluation 92631 2008 MEREDITH LOMELI Coordinated care fee, risk adjusted maintenance, Level 3 2008 LONGLYDIAA S DoD Case Management, each 15 minutes 2008 MOO IVANNA S [facility] Psychologic Testing And Report Administered By Computer Psychologic Testing And Report Administered By Computer 08987 2008 JATINDER GARCIA [facility] Psychometric Neuropsych Testing Battery Admin By Collision Repairer Psychometric Neuropsych Testing Battery Admin By Collision Repairer 00746 2008 JATINDER GARCIA [facility] Psychiatric Diagnostic Evaluation Comprehensive Examination Psychiatric Diagnostic Evaluation Comprehensive Examination 11150 2008 MONICA WATSON [facility] Screening Test Of Visual Acuity, Quantitative, Bilateral Screening Test Of Visual Acuity, Quantitative, Bilateral 99000 2008 SIERRA DE LA ROSA [facility] Coordinated care fee, risk adjusted maintenance, Level 3 2007 LONG, IVANNA S DoD Case Management, each 15 minutes 2007 LONG, IVANNA S [facility] Audiometry Group Testing Audiometry Group Testing 81487 2007 PAL MCLEOD [facility] Immunization Admin By Intranasal / Oral Route One Vaccine Immunization Admin By Intranasal / Oral Route One Vaccine 06281 2007 [facility] Influenza Virus Vaccine Intranasal Live Attenuated [facility] Skin Test Anergy Tuberculin Intradermal Skin Test Anergy Tuberculin Intradermal 74198 2007 [facility] Venipuncture Venipuncture 47837 2007 DAKOTA MCCORMICK [facility] Physician Supervised Specimen Handling / Transfer: Office To Lab Physician Supervised Specimen Handling / Transfer: Office To Lab 46690 2007 DAKOTA MCCORMICK [facility] Physician Supervised Specimen Handling / Transfer: Office To Lab Physician Supervised Specimen Handling / Transfer: Office To Lab 32538 2007 TAMIA BALTAZAR DoD Case Management, each [...] each 15 minutes 2007 LONG, IVANNA S [facility] Treatment Of Swallowing Dysfunction Treatment Of Swallowing Dysfunction 33544 2007 ODALIS RODRIGUEZ [facility] Physical Therapy Neuromuscular Re-education Physical Therapy Neuromuscular Re-education 98708 2007 JAZZ CARTER [facility] Treatment Of Swallowing Dysfunction Treatment Of Swallowing Dysfunction 35758 2007 ODALIS RODRIGUEZ [facility] Patient Training And Self-Care Skills Patient Training And Self-Care Skills 87659 2007 JAZZ CARTER [facility] Medical Nutrition Therapy Re-a e ment And Intervention Each 15 Minutes Medical Nutrition Therapy Re-assessment And Intervention Each 15 Minutes 51174 2007 YOLANDA CEDEÑO [facility] Patient Training And Self-Care Skills Patient Training And Self-Care Skills 44677 2007 JAZZ CARTER [facility] Physical Therapy Neuromuscular Re-education Physical Therapy Neuromuscular Re-education 42719 2007 JAZZ CARTER [facility] INDIVIDUAL PSYCHOTHERAPY, INSIGHT ORIENTED, BEHAVIOR MODIFYING AND/OR SUPPORTIVE, IN AN OFFICE OR OUTPATIENT FACILITY, APPROXIMATELY 20 TO 30 MINUTES [id number] WITH THE PATIENT 2006 [facility] PSYCHIATRIC DIAGNOSTIC INTERVIEW EXAMINATION 2006 [facility] IMMUNIZATION ADMINISTRATION (INCLUDES PERCUTANEOUS, INTRADERMAL, SUBCUTANEOUS, OR INTRAMUSCULAR INJECTIONS); 1 VACCINE (SINGLE OR COMBINATION VACCINE/TOXOID) 2006 [facility] PURE TONE AUDIOMETRY (THRESHOLD); AIR ONLY 2006 [facility] DETERMINATION OF REFRACTIVE STATE 2006 [facility] THERAPEUTIC PROCEDURE, 1 OR MORE AREAS, EACH 15 MINUTES; THERAPEUTIC EXERCISES TO DEVELOP STRENGTH AND ENDURANCE, RANGE OF MOTION AND FLEXIBILITY 2006 [facility] BUPRENORPHINE IMPLANT, 74.2 MG 2006 [facility] INDIVIDUAL PSYCHOTHERAPY, INSIGHT ORIENTED, BEHAVIOR MODIFYING AND/OR SUPPORTIVE, IN AN OFFICE OR OUTPATIENT FACILITY, APPROXIMATELY 20 TO 30 MINUTES [id number] WITH THE PATIENT 2006 [facility] PSYCHOLOGICAL TSTING (INCL PSYCHODIAG ASSESSMNT, EMOTITY, INTELLECTUAL ABILITIES, PERSONALITY &PSYCHOPATHOLOGY, EG, MMPI), ADMINISTERED COMPUTER, W QUALIFIED HEALTH CUFF PRESSER INTERPRET &RPT 2006 [facility] PSYCHIATRIC DIAGNOSTIC INTERVIEW EXAMINATION 2006 [facility] THERAPEUTIC PROCEDURE, 1 OR MORE AREAS, EACH 15 MINUTES; THERAPEUTIC EXERCISES TO DEVELOP STRENGTH AND ENDURANCE, RANGE OF MOTION AND FLEXIBILITY 2005 [facility] ORAL THERMOMETER, REUSABLE, ANY TYPE, EACH 2005 [facility] TYPHOID VACCINE, CAPSULAR POLYSACCHARIDE (VICPS), FOR INTRAMUSCULAR USE 2005 [facility] BUPRENORPHINE IMPLANT, 74.2 MG 2005 [facility] SCREENING TEST OF VISUAL ACUITY, QUANTITATIVE, BILATERAL 2005 [facility] AUDIOMETRIC TESTING OF GROUPS 2005 DoD SKIN TEST; TUBERCULOSIS, INTRADERMAL 2005 [facility] SKIN TEST; TUBERCULOSIS, INTRADERMAL 2009 [facility] SKIN TEST; TUBERCULOSIS, INTRADERMAL 2009 [facility] ELECTROCARDIOGRAM, ROUTINE ECG WITH AT LEAST 12 LEADS; WITH INTERPRETATION AND REPORT 2009 [facility] SKIN TEST; TUBERCULOSIS, INTRADERMAL 2009 [facility] CASE MANAGEMENT, EACH 15 MINUTES 2009 [facility] IMMUNIZATION ADMINISTRATION (INCLUDES PERCUTANEOUS, INTRADERMAL, SUBCUTANEOUS, OR INTRAMUSCULAR INJECTIONS); EACH ADDITIONAL VACCINE (SINGLE OR COMBINATION VACCINE/TOXOID) 2009 [facility] CASE MANAGEMENT, EACH 15 MINUTES 2008 [facility] OCCUPATIONAL THERAPY EVALUATION 2008 [facility] PHYSICAL THERAPY RE-EVALUATION 2008 [facility] INFLUENZA VIRUS VACCINE, TRIVALENT, LIVE (LAIV3), FOR INTRANASAL USE 2008 [facility] FITTING OF SPECTACLES, EXCEPT FOR APHAKIA; MONOFOCAL 2008 DoD COORDINATED CARE FEE, RISK ADJUSTED MAINTENANCE, LEVEL 4 2008 [facility] HANDLING AND/OR CONVEYANCE OF SPECIMEN FOR TRANSFER FROM THE OFFICE TO A LABORATORY 2008 [facility] SCREENING TEST, PURE TONE, AIR ONLY 2008 [facility]D COORDINATED CARE FEE, RISK ADJUSTED MAINTENANCE, LEVEL 4 2008 [facility] COORDINATED CARE FEE, RISK ADJUSTED MAINTENANCE, LEVEL 4 2008 [facility] THERAPEUTIC PROCEDURE, 1 OR MORE AREAS, EACH 15 MINUTES; THERAPEUTIC EXERCISES TO DEVELOP STRENGTH AND ENDURANCE, RANGE OF MOTION AND FLEXIBILITY 2008 [facility] THERAPEUTIC PROCEDURE, 1 OR MORE AREAS, EACH 15 MINUTES; THERAPEUTIC EXERCISES TO DEVELOP STRENGTH AND ENDURANCE, RANGE OF MOTION AND FLEXIBILITY 2008 [facility] SELF-CARE/HOME MANAGMENT TRAIN (EG,ACT OF DAILY LIVING [...] DoD CASE MANAGEMENT, EACH 15 MINUTES 2008 [facility] OCCUPATIONAL THERAPY RE-EVALUATION 2008 Do[facility] THERAPEUTIC ACTIVITIES, [...] WISC CARD SORT TST),/HR OF PSYCHOLOGIST/PHYS TIME,BOTH [id number] ADMIN TST TO PAT & TIME INTERP [...] WISC CARD SORT TST),/HR OF PSYCHOLOGIST/PHYS TIME,BOTH [id number] ADMIN TST TO PAT & TIME INTERP TEST RES & PREP RPT 2008 [facility] THERAPEUTIC PROCEDURE, 1 OR MORE AREAS, EACH 15 MINUTES; THERAPEUTIC EXERCISES TO DEVELOP STRENGTH AND ENDURANCE, RANGE OF MOTION AND FLEXIBILITY 2008 [facility] COORDINATED CARE FEE, RISK ADJUSTED MAINTENANCE, LEVEL 3 2008 Do[facility] UNLISTED SPECIAL SERVICE, PROCEDURE OR REPORT 2008 [facility] PSYCHOLOGICAL TSTING (INCL PSYCHODIAG ASSESSMNT, EMOTITY, INTELLECTUAL ABILITIES, PERSONALITY &PSYCHOPATHOLOGY, EG, MMPI), ADMINISTERED COMPUTER, W QUALIFIED HEALTH CUFF PRESSER INTERPRET &RPT 2008 [facility] PSYCHIATRIC DIAGNOSTIC INTERVIEW EXAMINATION 2008 [facility] SCREENING TEST OF VISUAL ACUITY, QUANTITATIVE, BILATERAL 2008 [facility] COORDINATED CARE FEE, RISK ADJUSTED MAINTENANCE, LEVEL 3 2007 [facility] IMMUNIZATION ADMINISTRATION BY INTRANASAL OR ORAL ROUTE; 1 VACCINE (SINGLE OR COMBINATION VACCINE/TOXOID) 2007 [facility] AUDIOMETRIC TESTING OF GROUPS 2007 [facility] COLLECTION OF VENOUS BLOOD BY VENIPUNCTURE 2007 [facility] HANDLING AND/OR CONVEYANCE OF SPECIMEN FOR TRANSFER FROM THE OFFICE TO A LABORATORY 2007 DoD CASE MANAGEMENT, EACH 15 MINUTES 2007 DoD CASE MANAGEMENT, EACH 15 MINUTES 2007 [facility] CASE MANAGEMENT, EACH 15 MINUTES 2007 [facility] COORDINATED CARE FEE, RISK ADJUSTED MAINTENANCE 2007 [facility] CASE MANAGEMENT, EACH 15 MINUTES 2007 [facility] OTHER EXCISION OR DESTRUCTION OF LESION OR TISSUE OF BRAIN 2007 [facility] OTHER CRANIECTOMY 2007 [facility] ARTERIOGRAPHY OF CEREBRAL ARTERIES 2007 [facility] COMPUTERIZED AXIAL TOMOGRAPHY OF HEAD 2007 DoD [...] POSTOPERATIVE PERIOD REASON RELATED ORIGINAL PROCEDURE 2007 [facility] SURGERY OF INTRACRANIAL ARTERIOVENOUS MALFORMATION; SUPRATENTORIAL, SIMPLE 2007 [facility] UNLISTED SPECIAL SERVICE, PROCEDURE OR REPORT 2007 DoD CASE MANAGEMENT, EACH 15 MINUTES 2007 [facility] CASE MANAGEMENT, EACH 15 MINUTES 2007 [facility] CASE MANAGEMENT, EACH 15 MINUTES 2007 Do[facility] CASE MANAGEMENT, EACH 15 MINUTES 2007 DoD CASE MANAGEMENT, EACH 15 MINUTES 2007 DoD CASE MANAGEMENT, EACH 15 MINUTES 2007 [facility] TEMPORARY TRACHEOSTOMY 02/17 [facility] ENTERAL INFUSION OF CONCENTRATED NUTRITIONAL SUBSTANCES 2007 [facility] VENTRICULOSTOMY 2007 [facility] OTHER INCISION OF BRAIN 01/28 [facility] INJECTION OF ANTIBIOTIC 01/28 [facility] INJECTION OF ANTICOAGULANT 2007 [facility] OTHER LAVAGE OF BRONCHUS AND TRACHEA 2007 [facility] INSERTION OF ENDOTRACHEAL TUBE 2007 [facility] OTHER OXYGEN ENRICHMENT 01/28 [facility] RESPIRATORY MEDICATION ADMINISTERED BY NEBULIZER 2007 [facility] OTHER DIAGNOSTIC ULTRASOUND 2007 [facility] DIAGNOSTIC ULTRASOUND OF HEART 2007 [facility] ARTERIOGRAPHY OF CEREBRAL ARTERIES 2007 [facility] COMPUTERIZED AXIAL TOMOGRAPHY OF ABDOMEN 2007 [facility] COMPUTERIZED AXIAL TOMOGRAPHY OF THORAX 2007 [facility] COMPUTERIZED AXIAL TOMOGRAPHY OF HEAD 2007 [facility] CONTINUOUS MECHANICAL VENTILATION FOR 96 CONSECUTIVE HOURS OR MORE 2007 [facility] PERCUTANEOUS [ENDOSCOPIC] GASTROSTOMY [PEG] 2007 [facility] VENOUS CATHETERIZATION, NOT ELSEWHERE CLASSIFIED 2007 [facility] CLOSED [ENDOSCOPIC] BIOPSY OF BRONCHUS 2007 [facility] TREATMENT OF SWALLOWING DYSFUNCTION AND/OR ORAL FUNCTION FOR FEEDING 2007 [facility] POSTOPERATIVE FOLLOW-UP VISIT, NORMALLY INCLUDED IN THE SURGICAL PACKAGE, INDICATE THAT EVALUATION & MANAGEMENT SERVICE WAS PERFORMED DURING A POSTOPERATIVE PERIOD REASON RELATED ORIGINAL PROCEDURE 2007 [facility] THERAPEUTIC PROCEDURE,1 OR MORE AREAS,EACH 15 MINUTES;NEUROMUSCULAR REEDUCATION OF MOVEMENT,BALANCE,COORDI NATION,KINESTHETIC SENSE,POSTURE,AND/OR PROPRIOCEPTION FOR SITTING AND/OR STANDING ACTIVITIES 2007 [facility] TREATMENT OF SWALLOWING DYSFUNCTION AND/OR ORAL FUNCTION FOR FEEDING 2007 [facility] THERAPEUTIC PROCEDURE, 1 OR MORE AREAS, EACH 15 MINUTES; GAIT TRAINING (INCLUDES STAIR CLIMBING) 2007 [facility] POSTOPERATIVE FOLLOW-UP VISIT, NORMALLY INCLUDED IN THE SURGICAL PACKAGE, INDICATE THAT EVALUATION & MANAGEMENT SERVICE WAS PERFORMED DURING A POSTOPERATIVE PERIOD REASON RELATED ORIGINAL PROCEDURE 2007 [facility] SELF-CARE/HOME MANAGMENT TRAIN (EG,ACT OF DAILY LIVING (ADL) &COMPENSAT TRAIN,MEAL PREPARATION,SAFETY PROCS,AND INSTRUCT IN USE OF ASST TECHNOLOGY DEV/ADPT EQUIP) DIR ONE-ON-ONE CONT,EA 15 MINUTES 2007 [facility] THERAPEUTIC PROCEDURE, 1 OR MORE AREAS, EACH 15 MINUTES; GAIT TRAINING (INCLUDES STAIR CLIMBING) 2007 [facility] MEDICAL NUTRITION THERAPY; RE-ASSESSMENT AND INTERVENTION, INDIVIDUAL, [id number] WITH THE PATIENT, EACH 15 MINUTES 2007 [facility] SELF-CARE/HOME MANAGMENT TRAIN (EG,ACT OF DAILY LIVING (ADL) &COMPENSAT TRAIN,MEAL PREPARATION,SAFETY PROCS,AND INSTRUCT IN USE OF ASST TECHNOLOGY DEV/ADPT EQUIP) DIR ONE-ON-ONE CONT,EA 15 MINUTES 2007 [facility] THERAPEUTIC ACTIVITIES, DIRECT (ONE-ON-ONE) PATIENT CONTACT (USE OF DYNAMIC ACTIVITIES TO IMPROVE FUNCTIONAL PERFORMANCE), EACH 15 MINUTES 2007 [facility] POSTOPERATIVE FOLLOW-UP VISIT, NORMALLY INCLUDED IN THE SURGICAL PACKAGE, INDICATE THAT EVALUATION & MANAGEMENT SERVICE WAS PERFORMED DURING A POSTOPERATIVE PERIOD REASON RELATED ORIGINAL PROCEDURE 2007 [facility] POSTOPERATIVE FOLLOW-UP VISIT, NORMALLY INCLUDED IN THE SURGICAL PACKAGE, INDICATE THAT EVALUATION & MANAGEMENT SERVICE WAS PERFORMED DURING A POSTOPERATIVE PERIOD REASON RELATED ORIGINAL PROCEDURE 2007 [facility] PHYSICAL THERAPY RE-EVALUATION 2007 [facility] POSTOPERATIVE FOLLOW-UP VISIT, NORMALLY INCLUDED IN THE SURGICAL PACKAGE, INDICATE THAT EVALUATION & MANAGEMENT SERVICE WAS PERFORMED DURING A POSTOPERATIVE PERIOD REASON RELATED ORIGINAL PROCEDURE 2007 [facility] THERAPEUTIC ACTIVITIES, DIRECT (ONE-ON-ONE) PATIENT CONTACT (USE OF DYNAMIC ACTIVITIES TO IMPROVE FUNCTIONAL PERFORMANCE), EACH 15 MINUTES 2007 [facility] TREATMENT OF SWALLOWING DYSFUNCTION AND/OR ORAL FUNCTION FOR FEEDING 2007 [facility] POSTOPERATIVE FOLLOW-UP VISIT, NORMALLY INCLUDED IN THE SURGICAL PACKAGE, INDICATE THAT EVALUATION & MANAGEMENT SERVICE WAS PERFORMED DURING A POSTOPERATIVE PERIOD REASON RELATED ORIGINAL PROCEDURE 2007 [facility] THERAPEUTIC ACTIVITIES, DIRECT (ONE-ON-ONE) PATIENT CONTACT (USE OF DYNAMIC ACTIVITIES TO IMPROVE FUNCTIONAL PERFORMANCE), EACH 15 MINUTES 2007 [facility] THERAPEUTIC PROCEDURE, 1 OR MORE AREAS, EACH 15 MINUTES; THERAPEUTIC EXERCISES TO DEVELOP STRENGTH AND ENDURANCE, RANGE OF MOTION AND FLEXIBILITY 2007 [facility] TREATMENT OF SWALLOWING DYSFUNCTION AND/OR ORAL FUNCTION FOR FEEDING 2007 [facility] POSTOPERATIVE FOLLOW-UP VISIT, NORMALLY INCLUDED IN THE SURGICAL PACKAGE, INDICATE THAT EVALUATION & MANAGEMENT SERVICE WAS PERFORMED DURING A POSTOPERATIVE PERIOD REASON RELATED ORIGINAL PROCEDURE 2007 [facility] POSTOPERATIVE FOLLOW-UP VISIT, NORMALLY INCLUDED IN THE SURGICAL PACKAGE, INDICATE THAT EVALUATION & MANAGEMENT SERVICE WAS PERFORMED DURING A POSTOPERATIVE PERIOD REASON RELATED ORIGINAL PROCEDURE 2007 [facility] THERAPEUTIC ACTIVITIES, DIRECT (ONE-ON-ONE) PATIENT CONTACT (USE OF DYNAMIC ACTIVITIES TO IMPROVE FUNCTIONAL PERFORMANCE), EACH 15 MINUTES 2007 [facility] TREATMENT OF SPEECH, LANGUAGE, VOICE, COMMUNICATION, AND/OR AUDITORY PROCESSING DISORDER; INDIVIDUAL 2007 [facility] MEDICAL NUTRITION THERAPY; RE-ASSESSMENT AND INTERVENTION, INDIVIDUAL, [id number] WITH THE PATIENT, EACH 15 MINUTES 2007 [facility] OCCUPATIONAL THERAPY EVALUATION 2007 [facility] THERAPEUTIC ACTIVITIES, DIRECT (ONE-ON-ONE) PATIENT CONTACT (USE OF DYNAMIC ACTIVITIES TO IMPROVE FUNCTIONAL PERFORMANCE), EACH 15 MINUTES 2007 [facility] TRACHEOSTOMY SPEAKING VALVE 2007 [facility] POSTOPERATIVE FOLLOW-UP VISIT, NORMALLY INCLUDED IN THE SURGICAL PACKAGE, INDICATE THAT EVALUATION & MANAGEMENT SERVICE WAS PERFORMED DURING A POSTOPERATIVE PERIOD REASON RELATED ORIGINAL PROCEDURE 2007 [facility] PHYSICAL THERAPY EVALUATION 2007 [facility] TRACHEOSTOMY SPEAKING VALVE 2007 DoD POSTOPERATIVE FOLLOW-UP VISIT, NORMALLY INCLUDED IN THE SURGICAL PACKAGE, INDICATE THAT EVALUATION & MANAGEMENT SERVICE WAS PERFORMED DURING A POSTOPERATIVE PERIOD REASON RELATED ORIGINAL PROCEDURE 2007 [facility] PHYSICAL THERAPY EVALUATION 2007 [facility] HEALTH&BEHAV ASSESSMENT (EG, HEALTH-FOC CLINICAL INTERVIEW, BEHAVIORAL OBSERVATIONS, PSYCHOPHYSICOLOGICAL MONITOR, HEALTH-ORIENT QUESTIONNAIRES), EA 15 MIN [id number] W THE PATIENT; INIT ASSESSMENT 2007 [facility] MEDICAL NUTRITION THERAPY; RE-ASSESSMENT AND INTERVENTION, INDIVIDUAL, [id number] WITH THE PATIENT, EACH 15 MINUTES 2007 [facility] INSERTION OF GASTROSTOMY TUBE, PERCUTANEOUS, UNDER FLUOROSCOPIC GUIDANCE INCLUDING CONTRAST INJECTION(S), IMAGE DOCUMENTATION AND REPORT 2007 [facility] MEDICAL NUTRITION THERAPY; RE-ASSESSMENT AND INTERVENTION, INDIVIDUAL, [id number] WITH THE PATIENT, EACH 15 MINUTES 2007 [facility] MEDICAL NUTRITION THERAPY; RE-ASSESSMENT AND INTERVENTION, INDIVIDUAL, [id number] WITH THE PATIENT, EACH 15 MINUTES 2007 [facility] POSTOPERATIVE FOLLOW-UP VISIT, NORMALLY INCLUDED IN THE SURGICAL PACKAGE, INDICATE THAT EVALUATION & MANAGEMENT SERVICE WAS PERFORMED DURING A POSTOPERATIVE PERIOD REASON RELATED ORIGINAL PROCEDURE 2007 [facility] POSTOPERATIVE FOLLOW-UP VISIT, NORMALLY INCLUDED IN THE SURGICAL PACKAGE, INDICATE THAT EVALUATION & MANAGEMENT SERVICE WAS PERFORMED DURING A POSTOPERATIVE PERIOD REASON RELATED ORIGINAL PROCEDURE 2007 [facility] 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 Social History Type Response Date Comment Sourc e Tobacco smoking status NHIS VA-TOBACCO FORMER USER 03/18/2024 [facility] History of tobacco use VA-TOBACCO QUIT < 1 YEAR 03/18/2024 [facility] History of tobacco use VA-TOBACCO USER E VERY DAY 03/18/2023 [facility] History of tobacco use VA-VAAES TOBACCO USE CURRENT NRT DECLINE 11/06/2022 [facility] History of tobacco use ORYX ADMIT TOBACC O USE CIGS GR 5D 11/06/2022 [facility] History of tobacco use LIFETIME NON-USER OF TOBACCO 01/17/2011 [facility] History of tobacco use LIFETIME NON-USER OF TOBACCO 03/04/2008 [facility] This section is an empty social history section. DoD Plan of Care List of future care activities from Department of 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 Additional future care activities may be listed in the Assessment and Plan section. Date/Time Care Activity Care Activity Detail Facili ty 03/18/2025 AMBULATORY - MEDICINE AMBULATORY - MEDICI [facility]
== END 2024-11-19 09:05 | disposition home or self-care (01) ==
PROVIDERS: Emergency Provider Emergency Medicine; PCP Physician Assistant
DX: R68.84 Jaw pain (principal)
CPT/HCPCS: 99283

== ENCOUNTER 2024-12-08 18:46 | Emergency (ER) | payer OTHER, SELFPAY ==
[2024-12-08 18:46] VITALS: BP 150/88; PULSE 82; RESP 20; TEMP 36.5; O2SAT 98
--- OUTSIDE RECORDS SUMMARY | 2024-12-08 18:56 | XMS_ITS | Patient Health Record ---
Author Organization [facility] Address [address] [place] [address] Care Team Providers Care Lap Regulator Name Role Phone Goran Mckinney Primary Care [...]
--- OUTSIDE RECORDS SUMMARY | 2024-12-08 19:09 | XMS_ITS | Continuity of Care Document ---
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 It does not include entries that were removed or entered in error. Problem Status Onset Date Problem Type Date of Resolution Comments Source Adjustment disorder with depressed mood (SNOMED CT 16508522) Active Condition [facility] Cerebral aneurysm, nonruptured (ICD-9-CM 437.3) Active Condition [facility] Congenital arteriovenous malformation Active Condition Jan 17, 2011 Entered By: CHIOMA QUAN Comment: 12/[address] [facility] Diplopia * (ICD-9-CM 368.2) Active Condition [facility] Myopia Active Condition [facility] Pain of joint of knee (SNOMED CT 6348750338) Active Condition [facility] Pneumonia, organism unspecified Active Condition Jan 17, 2011 Entered By: CHIOMA QUAN Comment: August 2010, received pneumovax vaccineMar 08, 2011 Entered By: CHIOMA QUAN Comment: 02/20/11 rul and rml [facility] Sleep disturbances Active Condition [facility] Tinnitus Active Condition [facility] Vitamin D Deficiency (SCT 86805127) Active Condition [facility] Chest Pain * (ICD-9-CM 786.50) Inactive Condition 03/18/2023 [facility] Cyst, ganglion Inactive Condition 03/18/2023 Jan 17, 2011 Entered By: CHIOMA QUAN Comment: right wrist [facility] Encounters for unspecified Administrative Purpose (ICD-9-CM V68.9) Inactive Condition 03/18/2023 [facility] NEUTROPENIA, unspecified Inactive Condition 03/18/2023 [facility] Vitamin D Deficiency Inactive Condition 03/18/2023 [facility] visit for: services physical separation Active Condition [facility] visit for: refer patient without exam or [...] Condition DoD difficulty swallowing (dysphagia) Active Condition [facility] Patient Counseling: Inquiry & Counseling Active Condition [facility] intracerebral hemorrhage Active Condition [facility] bacteremia Active Condition [facility] arteriovenous malformation ([facility] [place]) Active Condition [facility] Dietary Counseling Pertaining To Specific Condition Inactive Condition [facility] visit for: screening exam pulmonary tuberculosis Active [...] exam w/o abnormal findings Active Diagnosis . [facility] Diagnosis: ICD-10-CM Q27.30 Arteriovenous malformation, site unspecified Active Diagnosis [facility] Diagnosis: ICD-10-CM G40.89 Other seizures Active Diagnosis [facility] Allergies, Adverse Reactions, Alerts Combined list of allergies 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 It does not include entries that were removed or entered in error. Substance Category Reaction Severity Reaction type Status Date Reported Comments Source ADHESIVE TAPE Propensity to adverse reaction (finding) Eruption active 1 [facility] OTHER Drug allergy (disorder) Unknown active 8 [facility] Immunizations Combined list of available immunizations from the 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 Immunization Series Date Given Administered By Site Reaction Lot Number CVX Code Drug Housekeeper Head Status Comments Source PNEUMOCOCCAL POLYSACCHARID E PPV23 2022 KARI,EDIT H R RIGHT DELTO ID [id number] 33 complet ed [facility] TDAP 2022 KARIEDIT H R LEFT DELTO ID [id number] 115 complet ed [facility] INFLUENZA, UNSPECIFIED FORMULATION [address] [facility] INFLUENZA, UNSPECIFIED FORMULATION 2010 88 complet ed [facility] tuberculin skin test; purified protein derivative solution, intradermal 0 2009 KAREEN ARMENDARIZ [id number] 96 [employer] ([facility]) complet ed tuberculi n skin test; purified protein derivativ e solution, intraderm al DoD tuberculin skin test; purified protein derivative solution, intradermal 1 2009 JAZZ DAVIS [id number] 96 [place] [employer] ([facility]) complet ed tuberculi n skin test; purified protein derivativ e solution, intraderm al DoD tuberculin skin test; purified protein derivative solution, intradermal 1 2009 CIERA FOREMAN [id number] 96 [place] [employer] ([facility]) complet ed tuberculi n skin test; purified protein derivativ e solution, intraderm al DoD tuberculin skin test; purified protein derivative solution, intradermal 1 2009 WILTON SILVA [id number] 96 [place] [employer] ([facility]) complet ed tuberculi n skin test; purified protein derivativ e solution, intraderm al DoD typhoid Vi capsular polysaccharid e vaccine 1 2009 WILTON SILVA [id number] [place] [employer] ([employer]) complet ed typhoid Vi capsular polysacch aride vaccine DoD Novel Influenza-H1N 1-09, live virus for nasal administratio n 1 2009 WILTON SILVA [id number] 125 [employer] (MED) complet ed Novel Influenza -K6E8-58, live virus for nasal administr ation DoD influenza virus vaccine, live, attenuated, for intranasal use 0 2008 UNK 111 Unknown (UNK) comple t ed influenza virus vaccine, live, attenuate d, for intranasa l use DoD influenza virus vaccine, live, attenuated, for intranasal use 1 2008 SERA PRASAD Radha [id number] 111 [employer] (MED) complet ed influenza virus vaccine, live, attenuate d, for intranasa l use DoD tuberculin skin test; purified protein derivative solution, intradermal 1 2007 KAREEN ARMENDARIZ [id number] [place] (PD) complet ed tuberculi n skin test; purified protein derivativ e solution, intraderm al DoD influenza virus vaccine, live, attenuated, for intranasal use 1 2007 KAREEN ARMENDARIZ [id number] 111 [employer] (MED) complet ed influenza virus vaccine, live, attenuate d, for intranasa l use DoD influenza virus vaccine, unspecified formulation 0 2006 UNK 88 Unknown (UNK) comple t ed influenza virus vaccine, unspecifi ed formulati on DoD tuberculin skin test; purified protein derivative solution, intradermal 1 2006 JAZZ DAVIS [id number] [place] (PD) complet ed tuberculi n skin test; purified protein derivativ e solution, intraderm al DoD influenza virus vaccine, live, attenuated, for intranasal use 1 2006 SINHAYVONNE VickShalom Rubio [id number] 111 [employer] (MED) complet ed influenza virus vaccine, live, attenuate d, for intranasa l use DoD hepatitis B vaccine, adult dosage 3 2006 UNK 43 Unknown (UNK) comple t ed hepatitis B vaccine, adult dosage DoD hepatitis A and hepatitis B vaccine 3 2006 ROQUE WHITNEY [id number] [facility] (SKB) complet ed hepatitis A [...] Mar 18, 2024 10:55 AM Reporting Lab: [facility] [address] [facility] [address] Performing Lab: [facility] [address] [facility] [address] [facility] LIPID PANEL (STL) TRIGLYCERID E [MASS/VOLUM E] IN SERUM OR PLASMA 247 mg/dL 0 - 150 03/18 H Specimen Type: PLASMA Comment: No hemolysis noted. Ordering Provider: Nicanor KENNEDY Report Released Date/Time: Mar 18, 2024 10:55 AM Reporting Lab: [facility] [address] [address] Performing Lab: [address] [address] [facility] LIPID PANEL (STL) CHOLESTEROL IN LDL [MASS/VOLUM E] IN SERUM OR PLASMA BY CALCULATION 106 mg/dL 03/18 Specimen Type: PLASMA Comment: No hemolysis noted. Ordering Provider: Nicanor KENNEDY Report Released Date/Time: Mar 18, 2024 10:55 AM Reporting Lab: [address] [address] Performing Lab: [address] [address] [facility] LIPID PANEL (STL) CHOLESTEROL IN HDL [MASS/VOLUM E] IN SERUM OR PLASMA 54 mg/dL 40 03/18 Specimen Type: PLASMA Comment: No hemolysis noted. Ordering Provider: Nicanor KENNEDY Report Released Date/Time: Mar 18, 2024 10:55 AM Reporting Lab: [address] [address] Performing Lab: [address] [address] [facility] COMPREHENS GUILLERMO METABOLIC PANEL CREATININE [MASS/VOLUM E] IN SERUM OR PLASMA 1.14 mg/dL 0.7 - 1.3 03/18 Specimen Type: PLASMA Comment: No hemolysis noted. Ordering Provider: Nicanor KENNEDY Report Released Date/Time: Mar 18, 2024 10:55 AM Reporting Lab: [address] [address] Performing Lab: [address] [address] [facility] COMPREHENS GUILLERMO METABOLIC PANEL UREA NITROGEN [MASS/VOLUM E] IN SERUM OR PLASMA 16.6 mg/dL 9.0 - 25.0 03/18 Specimen Type: PLASMA Comment: No hemolysis noted. Ordering Provider: Nicanor KENNEDY Report Released Date/Time: Mar 18, 2024 10:55 AM Reporting Lab: [facility] [address] [place] [phone] Performing Lab: [facility] [address] [place] [phone] [facility] COMPREHENS GUILLERMO METABOLIC PANEL GLUCOSE [MASS/VOLUM E] IN SERUM OR PLASMA 108 mg/dL 72 - 99 03/18 H Specimen Type: PLASMA Comment: No hemolysis noted. Ordering Provider: Nicanor KENNEDY Report Released Date/Time: Mar 18, 2024 10:55 AM Reporting Lab: [address] [address] Performing Lab: [address] [address] [facility] COMPREHENS GUILLERMO METABOLIC PANEL SODIUM [MOLES/VOLU ME] IN SERUM OR PLASMA 139 meq/L 136 - 145 03/18 Specimen Type: PLASMA Comment: No hemolysis noted. Ordering Provider: Nicanor KENNEDY Report Released Date/Time: Mar 18, 2024 10:55 AM Reporting Lab: [address] [address] Performing Lab: [address] [address] [facility] COMPREHENS GUILLERMO METABOLIC PANEL POTASSIUM [MOLES/VOLU ME] IN SERUM OR PLASMA 4.9 meq/L 3.5 - 5 03/18 Specimen Type: PLASMA Comment: No hemolysis noted. Ordering Provider: Nicanor KENNEDY Report Released Date/Time: Mar 18, 2024 10:55 AM Reporting Lab: [address] [address] Performing Lab: [address] [address] [facility] COMPREHENS GUILLERMO METABOLIC PANEL CHLORIDE [MOLES/VOLU ME] IN SERUM OR PLASMA 106 meq/L 98 - 107 03/18 Specimen Type: PLASMA Comment: No hemolysis noted. Ordering Provider: Nicanor KENNEDY Report Released Date/Time: Mar 18, 2024 10:55 AM Reporting Lab: [facility] [address] [place] [phone] Performing Lab: [address] [phone] [place] [address] [facility] COMPREHENS GUILLERMO METABOLIC PANEL CARBON DIOXIDE, TOTAL [MOLES/VOLU ME] IN SERUM OR PLASMA 25 meq/L 22 - 31 03/18 Specimen Type: PLASMA Comment: No hemolysis noted. Ordering Provider: Nicanor KENNEDY Report Released Date/Time: Mar 18, 2024 10:55 AM Reporting Lab: [address] [address] Performing Lab: [address] [phone] [place] [address] [facility] COMPREHENS GUILLERMO METABOLIC PANEL CALCIUM [MASS/VOLUM E] IN SERUM OR PLASMA 9.3 mg/dL 8.4 - 10.4 03/18 Specimen Type: PLASMA Comment: No hemolysis noted. Ordering Provider: Nicanor KENNEDY Report Released Date/Time: Mar 18, 2024 10:55 AM Reporting Lab: [address] [address] Performing Lab: [address] [address] [facility] COMPREHENS GUILLERMO METABOLIC PANEL PROTEIN [MASS/VOLUM E] IN SERUM OR PLASMA 6.9 g/dL 6 - 8.6 03/18 Specimen Type: PLASMA Comment: No hemolysis noted. Ordering Provider: Nicanor KENNEDY Report Released Date/Time: Mar 18, 2024 10:55 AM Reporting Lab: [facility] [address] [place] [phone] Performing Lab: [address] [address] [facility] COMPREHENS GUILLERMO METABOLIC PANEL ALBUMIN [MASS/VOLUM E] IN SERUM OR PLASMA 4.3 g/dL 3.4 - 5 03/18 Specimen Type: PLASMA Comment: No hemolysis noted. Ordering Provider: Nicanor KENNEDY Report Released Date/Time: Mar 18, 2024 10:55 AM Reporting Lab: [facility] [address] [place] [phone] Performing Lab: [facility] [address] [place] [phone] [place] [address] [facility] COMPREHENS GUILLERMO METABOLIC PANEL BILIRUBIN.T OTAL [MASS/VOLUM E] IN SERUM OR PLASMA 0.5 mg/dL 0.2 - 1.2 03/18 Specimen Type: PLASMA Comment: No hemolysis noted. Ordering Provider: Nicanor KENNEDY Report Released Date/Time: Mar 18, 2024 10:55 AM Reporting Lab: [address] [address] Performing Lab: [address] [phone] [place] [address] [facility] COMPREHENS GUILLERMO METABOLIC PANEL ALKALINE PHOSPHATASE [ENZYMATIC ACTIVITY/VO LUME] IN SERUM OR PLASMA 73 U/L 40 - 150 03/18 Specimen Type: PLASMA Comment: No hemolysis noted. Ordering Provider: Nicanor KENNEDY Report Released Date/Time: Mar 18, 2024 10:55 AM Reporting Lab: [address] [address] Performing Lab: [address] [phone] [place] [address] [facility] COMPREHENS GUILLERMO METABOLIC PANEL ASPARTATE AMINOTRANSF ERASE [ENZYMATIC ACTIVITY/VO LUME] IN SERUM OR PLASMA 28 U/L 5 - 34 03/18 Specimen Type: PLASMA Comment: No hemolysis noted. Ordering Provider: Nicanor KENNEDY Report Released Date/Time: Mar 18, 2024 10:55 AM Reporting Lab: [facility] [address] [place] [phone] Performing Lab: [address] [address] [facility] COMPREHENS GUILLERMO METABOLIC PANEL ALANINE AMINOTRANSF ERASE [ENZYMATIC ACTIVITY/VO LUME] IN SERUM OR PLASMA 24 U/L 8 - 40 03/18 Specimen Type: PLASMA Comment: No hemolysis noted. Ordering Provider: Nicanor KENNEDY Report Released Date/Time: Mar 18, 2024 10:55 AM Reporting Lab: [address] [address] Performing Lab: [address] [phone] [place] [address] [facility] COMPREHENS GUILLERMO METABOLIC PANEL GLOMERULAR FILTRATION RATE/1.73 SQ M.PREDICTED [VOLUME RATE/AREA] IN SERUM, PLASMA OR BLOOD BY CREATININE- BASED FORMULA (CKD-EPI 2020) 85.5 60 03/18 Specimen Type: PLASMA Comment: No hemolysis noted. Ordering Provider: Nicanor KENNEDY Report Released Date/Time: Mar 18, 2024 10:55 AM Reporting Lab: [address] [address] Performing Lab: [address] [phone] [place] [address] [facility] HGA1C HEMOGLOBIN A1C/HEMOGLO BIN.TOTAL IN BLOOD 5.5 4.0 - 6.0 03/18 Specimen Type: BLOOD No comment entered. Ordering Provider: Nicanor KENNEDY Report Released Date/Time: Mar 18, 2024 10:55 AM Reporting Lab: [address] [address] Performing Lab: [address] [address] [facility] CBC LEUKOCYTES [#/VOLUME] IN BLOOD BY AUTOMATED COUNT 4.7 10*3/u L 3.6 - 11.2 03/18 Specimen Type: BLOOD No comment entered. Ordering Provider: Nicanor KENNEDY Report Released Date/Time: Mar 18, 2024 10:55 AM Reporting Lab: [facility] [address] [place] [phone] Performing Lab: [address] [address] [facility] CBC ERYTHROCYTE S [#/VOLUME] IN BLOOD BY AUTOMATED COUNT 4.62 10*6/u L 4.10 - 5.70 03/18 Specimen Type: BLOOD No comment entered. Ordering Provider: Nicanor KENNEDY Report Released Date/Time: Mar 18, 2024 10:55 AM Reporting Lab: [place] [phone] Performing Lab: [address] [facility] CBC HEMOGLOBIN [MASS/VOLUM E] IN BLOOD 14.3 g/dL 13.1 - 16.8 03/18 Specimen Type: BLOOD No comment entered. Ordering Provider: Nicanor KENNEDY Report Released Date/Time: Mar 18, 2024 10:55 AM Reporting Lab: [place] [address] Performing Lab: [address] [facility] CBC HEMATOCRIT [VOLUME FRACTION] OF BLOOD 42.9 38.2 - 48.4 03/18 Specimen Type: BLOOD No comment entered. Ordering Provider: Nicanor KENNEDY Report Released Date/Time: Mar 18, 2024 10:55 AM Reporting Lab: [place] [address] Performing Lab: [address] [phone] [place] [address] [facility] CBC MCV [ENTITIC VOLUME] BY AUTOMATED COUNT 92.9 fL 80.0 - 100.0 03/18 Specimen Type: BLOOD No comment entered. Ordering Provider: Nicanor KENNEDY Report Released Date/Time: Mar 18, 2024 10:55 AM Reporting Lab: [place] [address] Performing Lab: [address] [facility] CBC MCH [ENTITIC MASS] BY AUTOMATED COUNT 31.0 pg 27.0 - 34.0 03/18 Specimen Type: BLOOD No comment entered. Ordering Provider: Nicanor KENNEDY Report Released Date/Time: Mar 18, 2024 10:55 AM Reporting Lab: [facility] [address] [place] [address] Performing Lab: [facility] [address] [place] [address] [phone] [place] [address] [facility] CBC MCHC [MASS/VOLUM E] BY AUTOMATED COUNT 33.3 g/dL 33.0 - 36.0 03/18 Specimen Type: BLOOD No comment entered. Ordering Provider: Nicanor KENNEDY Report Released Date/Time: Mar 18, 2024 10:55 AM Reporting Lab: [facility] [address] [place] [address] Performing Lab: [address] [facility] CBC PLATELETS [#/VOLUME] IN BLOOD BY AUTOMATED COUNT 237 10*3/u L 150 - 400 03/18 Specimen Type: BLOOD No comment entered. Ordering Provider: Nicanor KENNEDY Report Released Date/Time: Mar 18, 2024 10:55 AM Reporting Lab: [facility] [address] [place] [address] Performing Lab: [facility] [address] [place], [place] [id number] [address] [facility] CBC PLATELET MEAN VOLUME [ENTITIC VOLUME] IN BLOOD BY AUTOMATED COUNT 10.6 fL 7.5 - 11.2 03/18 Specimen Type: BLOOD No comment entered. Ordering Provider: Nicanor KENNEDY Report Released Date/Time: Mar 18, 2024 10:55 AM Reporting Lab: [facility] [address] [place] [address] Performing Lab: [facility] [address] [place] [address] [facility] CBC ERYTHROCYTE DISTRIBUTIO N WIDTH [RATIO] BY AUTOMATED COUNT 12.2 11.8 - 15.1 03/18 Specimen Type: BLOOD No comment entered. Ordering Provider: Nicanor KENNEDY Report Released Date/Time: Mar 18, 2024 10:55 AM Reporting Lab: [facility] [address] [facility] [address] Performing Lab: [facility] [address] [facility] [address] [facility] CBC LYMPHOCYTES /100 LEUKOCYTES IN BLOOD BY AUTOMATED COUNT 30 03/18 Specimen Type: BLOOD No comment entered. Ordering Provider: Nicanor KENNEDY Report Released Date/Time: Mar 18, 2024 10:55 AM Reporting Lab: [facility] [address] [facility] [address] Performing Lab: [facility] [address] [place] [phone] [facility] CBC MONOCYTES/1 00 LEUKOCYTES IN BLOOD BY AUTOMATED COUNT 8 03/18 Specimen Type: BLOOD No comment entered. Ordering Provider: Nicanor KENNEDY Report Released Date/Time: Mar 18, 2024 10:55 AM Reporting Lab: [facility] [address] [place] [phone] Performing Lab: [facility] [address] [place] [phone] [facility] CBC NEUTROPHILS /100 LEUKOCYTES IN BLOOD BY AUTOMATED COUNT 58 03/18 Specimen Type: BLOOD No comment entered. Ordering Provider: Nicanor KENNEDY Report Released Date/Time: Mar 18, 2024 10:55 AM Reporting Lab: [facility] [address] [place] [phone] Performing Lab: [facility] [address] [place] [phone] [facility] CBC EOSINOPHILS /100 LEUKOCYTES IN BLOOD BY AUTOMATED COUNT 3 03/18 Specimen Type: BLOOD No comment entered. Ordering Provider: Nicanor KENNEDY Report Released Date/Time: Mar 18, 2024 10:55 AM Reporting Lab: [facility] [address] [place] [phone] Performing Lab: [facility] [address] [address] [facility] CBC BASOPHILS/1 00 LEUKOCYTES IN BLOOD BY AUTOMATED COUNT 1 03/18 Specimen Type: BLOOD No comment entered. Ordering Provider: Nicanor KENNEDY Report Released Date/Time: Mar 18, 2024 10:55 AM Reporting Lab: [address] [address] Performing Lab: [address] [address] [facility] CBC LYMPHOCYTES [#/VOLUME] IN BLOOD BY AUTOMATED COUNT 1.42 10*3/u L 0.77 - 4.50 03/18 Specimen Type: BLOOD No comment entered. Ordering Provider: Nicanor KENNEDY Report Released Date/Time: Mar 18, 2024 10:55 AM Reporting Lab: [address] [address] Performing Lab: [address] [address] [facility] CBC MONOCYTES [#/VOLUME] IN BLOOD BY AUTOMATED COUNT 0.38 10*3/u L 0.19 - 0.80 03/18 Specimen Type: BLOOD No comment entered. Ordering Provider: Nicanor KENNEDY Report Released Date/Time: Mar 18, 2024 10:55 AM Reporting Lab: [address] [address] Performing Lab: [address] [address] [facility] CBC NEUTROPHILS [#/VOLUME] IN BLOOD BY AUTOMATED COUNT 2.72 10*3/u L 2.10 - 8.00 03/18 Specimen Type: BLOOD No comment entered. Ordering Provider: Nicanor KENNEDY Report Released Date/Time: Mar 18, 2024 10:55 AM Reporting Lab: [address] [address] Performing Lab: [address] [phone] [place] [address] [facility] CBC EOSINOPHILS [#/VOLUME] IN BLOOD BY AUTOMATED COUNT 0.13 10*3/u L 0.00 - 0.60 03/18 Specimen Type: BLOOD No comment entered. Ordering Provider: Nicanor KENNEDY Report Released Date/Time: Mar 18, 2024 10:55 AM Reporting Lab: [place] [address] Performing Lab: [address] [facility] CBC BASOPHILS [#/VOLUME] IN BLOOD BY AUTOMATED COUNT 0.06 10*3/u L 0.00 - 0.20 03/18 Specimen Type: BLOOD No comment entered. Ordering Provider: Nicanor KENNEDY Report Released Date/Time: Mar 18, 2024 10:55 AM Reporting Lab: [place] [address] Performing Lab: [address] [facility] TSH W/ REFLEX FT4 (STL) THYROTROPIN [UNITS/VOLU ME] IN SERUM OR PLASMA 0.605 u[IU]/ mL 0.47 - 5 03/18 Specimen Type: PLASMA No comment entered. Ordering Provider: Nicanor KENNEDY Report Released Date/Time: Mar 18, 2024 10:55 AM Reporting Lab: [place] [address] Performing Lab: [address] [facility] VITAMIN D, 25-HYDROXY 25-HYDROXYV ITAMIN D3 [MASS/VOLUM E] IN SERUM OR PLASMA 35.9 ng/mL 30 - 96 03/18 Specimen Type: SERUM No comment entered. Ordering Provider: Nicanor KENNEDY Report Released Date/Time: Mar 18, 2024 10:55 AM Reporting Lab: [place] [address] Performing Lab: [address] [address] [facility] LIPID PANEL (STL) CHOLESTEROL [MASS/VOLUM E] IN SERUM OR PLASMA 219 mg/dL 0 - 200 03/18 H Specimen Type: PLASMA No comment entered. Ordering Provider: Nicanor KENNEDY Report Released Date/Time: Mar 18, 2023 09:16 AM Reporting Lab: [address] [address] Performing Lab: [address] [address] [facility] LIPID PANEL (STL) TRIGLYCERID E [MASS/VOLUM E] IN SERUM OR PLASMA 129 mg/dL 0 - 150 03/18 Specimen Type: PLASMA No comment entered. Ordering Provider: Nicanor KENNEDY Report Released Date/Time: Mar 18, 2023 09:16 AM Reporting Lab: [address] [address] Performing Lab: [address] [address] [facility] LIPID PANEL (STL) CHOLESTEROL IN LDL [MASS/VOLUM E] IN SERUM OR PLASMA BY CALCULATION 144 mg/dL 03/18 Specimen Type: PLASMA No comment entered. Ordering Provider: Nicanor KENNEDY Report Released Date/Time: Mar 18, 2023 09:16 AM Reporting Lab: [address] [phone] Performing Lab: [address] [address] [facility] LIPID PANEL (STL) CHOLESTEROL IN HDL [MASS/VOLUM E] IN SERUM OR PLASMA 49 mg/dL 03/18 Specimen Type: PLASMA No comment entered. Ordering Provider: Nicanor KENNEDY Report Released Date/Time: Mar 18, 2023 09:16 AM Reporting Lab: [address] [address] Performing Lab: [address] [address] [facility] HGA1C HEMOGLOBIN A1C/HEMOGLO BIN.TOTAL IN BLOOD 5.7 4.0 - 6.0 03/18 Specimen Type: BLOOD No comment entered. Ordering Provider: Nicanor KENNEDY Report Released Date/Time: Mar 18, 2023 09:16 AM Reporting Lab: [place] [phone] Performing Lab: [place] [phone] [facility] TSH (MA-PB-STL ) THYROTROPIN [UNITS/VOLU ME] IN SERUM OR PLASMA 0.921 u[IU]/ mL 0.47 - 5 03/18 Specimen Type: SERUM No comment entered. Ordering Provider: Nicanor KENNEDY Report Released Date/Time: Mar 18, 2023 09:16 AM Reporting Lab: [place] [id number] Performing Lab: [place] [id number] [place] [address] [facility] COMPREHENS GUILLERMO METABOLIC PANEL CREATININE [MASS/VOLUM E] IN SERUM OR PLASMA 1.10 mg/dL 0.7 - 1.3 03/10 Specimen Type: PLASMA Comment: K result may show a positive bias due to hemolysis. Specimen slightly hemolyzed. Ordering Provider: NARINDER CARSON Report Released Date/Time: Mar 10, 2023 01:44 PM Reporting Lab: [address] [address] Performing Lab: [address] [id number] COMPREHENS GUILLERMO METABOLIC PANEL UREA NITROGEN [MASS/VOLUM E] IN SERUM OR PLASMA 8 mg/dL 9 - 25 03/10 L Specimen Type: PLASMA Comment: K result may show a positive bias due to hemolysis. Specimen slightly hemolyzed. Ordering Provider: NARINDER CARSON Report Released Date/Time: Mar 10, 2023 01:44 PM Reporting Lab: [facility] [address] [facility] [address] Performing Lab: [facility] [address] [facility] [address] [facility] COMPREHENS GUILLERMO METABOLIC PANEL GLUCOSE [MASS/VOLUM E] IN SERUM OR PLASMA 84 mg/dL 72 - 99 03/10 Specimen Type: PLASMA Comment: K result may show a positive bias due to hemolysis. Specimen slightly hemolyzed. Ordering Provider: NARINDER CARSON Report Released Date/Time: Mar 10, 2023 01:44 PM Reporting Lab: [facility] [address] [facility] [address] Performing Lab: [facility] [address] [facility] [address] [facility] COMPREHENS GUILLERMO METABOLIC PANEL SODIUM [MOLES/VOLU ME] IN SERUM OR PLASMA 142 meq/L 136 - 145 03/10 Specimen Type: PLASMA Comment: K result may show a positive bias due to hemolysis. Specimen slightly hemolyzed. Ordering Provider: NARINDER CARSON Report Released Date/Time: Mar 10, 2023 01:44 PM Reporting Lab: [facility] [address] [facility] [address] Performing Lab: [facility] [address] [facility] [address] [facility] COMPREHENS GUILLERMO METABOLIC PANEL POTASSIUM [MOLES/VOLU ME] IN SERUM OR PLASMA 4.4 meq/L 3.5 - 5 03/10 Specimen Type: PLASMA Comment: K result may show a positive bias due to hemolysis. Specimen slightly hemolyzed. Ordering Provider: NARINDER CARSON Report Released Date/Time: Mar 10, 2023 01:44 PM Reporting Lab: [facility] [address] [facility] [address] Performing Lab: [facility] [address] [facility] [address] [facility] COMPREHENS GUILLERMO METABOLIC PANEL CHLORIDE [MOLES/VOLU ME] IN SERUM OR PLASMA 107 meq/L 98 - 107 03/10 Specimen Type: PLASMA Comment: K result may show a positive bias due to hemolysis. Specimen slightly hemolyzed. Ordering Provider: NARINDER CARSON Report Released Date/Time: Mar 10, 2023 01:44 PM Reporting Lab: [facility] [address] [facility] [address] Performing Lab: [facility] [address] [facility] [address] [facility] COMPREHENS GUILLERMO METABOLIC PANEL CARBON DIOXIDE, TOTAL [MOLES/VOLU ME] IN SERUM OR PLASMA 25 meq/L 22 - 31 03/10 Specimen Type: PLASMA Comment: K result may show a positive bias due to hemolysis. Specimen slightly hemolyzed. Ordering Provider: NARINDER CARSON Report Released Date/Time: Mar 10, 2023 01:44 PM Reporting Lab: [place] [address] [facility] [address] Performing Lab: [facility] [address] [facility] [address] [facility] COMPREHENS GUILLERMO METABOLIC PANEL CALCIUM [MASS/VOLUM E] IN SERUM OR PLASMA 9.1 mg/dL 8.4 - 10.4 03/10 Specimen Type: PLASMA Comment: K result may show a positive bias due to hemolysis. Specimen slightly hemolyzed. Ordering Provider: NARINDER CARSON Report Released Date/Time: Mar 10, 2023 01:44 PM Reporting Lab: [facility] [address] [facility] [address] Performing Lab: [facility] [address] [facility] [address] [facility] COMPREHENS GUILLERMO METABOLIC PANEL PROTEIN [MASS/VOLUM E] IN SERUM OR PLASMA 6.9 g/dL 6 - 8.6 03/10 Specimen Type: PLASMA Comment: K result may show a positive bias due to hemolysis. Specimen slightly hemolyzed. Ordering Provider: NARINDER CARSON Report Released Date/Time: Mar 10, 2023 01:44 PM Reporting Lab: [facility] [address] [facility] [address] Performing Lab: [facility] [address] [facility] [address] [facility] COMPREHENS GUILLERMO METABOLIC PANEL ALBUMIN [MASS/VOLUM E] IN SERUM OR PLASMA 4.2 g/dL 3.4 - 5 03/10 Specimen Type: PLASMA Comment: K result may show a positive bias due to hemolysis. Specimen slightly hemolyzed. Ordering Provider: NARINDER CARSON Report Released Date/Time: Mar 10, 2023 01:44 PM Reporting Lab: [facility] [address] [facility] [address] Performing Lab: [place] [address] [facility] [address] [facility] COMPREHENS GUILLERMO METABOLIC PANEL BILIRUBIN.T OTAL [MASS/VOLUM E] IN SERUM OR PLASMA 0.5 mg/dL 0.2 - 1.2 03/10 Specimen Type: PLASMA Comment: K result may show a positive bias due to hemolysis. Specimen slightly hemolyzed. Ordering Provider: NARINDER CARSON Report Released Date/Time: Mar 10, 2023 01:44 PM Reporting Lab: [place] [address] [facility] [address] Performing Lab: [facility] [address] [facility] [address] [facility] COMPREHENS GUILLERMO METABOLIC PANEL ALKALINE PHOSPHATASE [ENZYMATIC ACTIVITY/VO LUME] IN SERUM OR PLASMA 83 U/L 40 - 150 03/10 Specimen Type: PLASMA Comment: K result may show a positive bias due to hemolysis. Specimen slightly hemolyzed. Ordering Provider: NARINDER CARSON Report Released Date/Time: Mar 10, 2023 01:44 PM Reporting Lab: [facility] [address] [facility] [address] Performing Lab: [facility] [address] [facility] [address] [facility] COMPREHENS GUILLERMO METABOLIC PANEL ASPARTATE AMINOTRANSF ERASE [ENZYMATIC ACTIVITY/VO LUME] IN SERUM OR PLASMA 31 U/L 5 - 34 03/10 Specimen Type: PLASMA Comment: K result may show a positive bias due to hemolysis. Specimen slightly hemolyzed. Ordering Provider: NARINDER CARSON Report Released Date/Time: Mar 10, 2023 01:44 PM Reporting Lab: [facility] [address] [facility] [address] Performing Lab: [facility] [address] [facility] [phone] [place] [address] COMPREHENS GUILLERMO METABOLIC PANEL ALANINE AMINOTRANSF ERASE [ENZYMATIC ACTIVITY/VO LUME] IN SERUM OR PLASMA 33 U/L 8 - 40 03/10 Specimen Type: PLASMA Comment: K result may show a positive bias due to hemolysis. Specimen slightly hemolyzed. Ordering Provider: NARINDER CARSON Report Released Date/Time: Mar 10, 2023 01:44 PM Reporting Lab: [facility] [address] [facility] [address] Performing Lab: [facility] [address] [facility] [phone] [place] [address] COMPREHENS GUILLERMO METABOLIC PANEL GLOMERULAR FILTRATION RATE/1.73 SQ M.PREDICTED [VOLUME RATE/AREA] IN SERUM, PLASMA OR BLOOD BY CREATININE- BASED FORMULA (CKD-EPI 2020) 89.8 03/10 Specimen Type: PLASMA Comment: K result may show a positive bias due to hemolysis. Specimen slightly hemolyzed. Ordering Provider: NARINDER CARSON Report Released Date/Time: Mar 10, 2023 01:44 PM Reporting Lab: [facility] [address] [facility] [address] Performing Lab: [facility] [address] [facility] [address] [facility] Vital Signs Combined list of inpatient and [...] ADM Date DC Date Status Disposition Source [facility]( art Team 1007) OUTPATIENT [id number] HARVEY BAPTISTE 07/08 Released with Work/Duty Limitations [facility]( Smart Team 1007) [facility]( art Team 1007) OUTPATIENT [id number] lft knee pain MIKE FORD 07/22 Released with Work/Duty Limitations [facility]( Smart Team 1007) [facility]itary Sick Call [facility] 237) OUTPATIENT [id number] L knee BEN BARNETT 08/26 Released with Work/Duty Limitations [facility] [place]( Militar y Sick Call [facility] 237) [facility] [place](Nv litary Sick Call [facility] 237) OUTPATIENT [id number] left knee AARTI STOVER 09/15 Released w/o Limitations [facility] 237) [facility]([place]itary Sick Call [place] [address]) OUTPATIENT [id number] pt c/o N/V. GUSTAVO SAMAYOA 09/16 Sick at Home/Quarter s [facility] 237) [facility](Nv litary Sick Call [facility] 237) OUTPATIENT [id number] f/u streap throat PRAMOD ARAUJO 10/03 Released w/o Limitations [facility]( Militar y Sick Call [facility] 237) [facility](N[place]itary Sick Call [place] [address]) OUTPATIENT [id number] pt c/o left knee pain since bootcam p. AARTI STOVER 10/10 Released with Work/Duty Limitations [facility] [place] [address]) [facility](N[place]itary Sick Call [place] [address]) OUTPATIENT [id number] knee f/u AARTI STOVER 10/20 Released with Work/Duty Limitations [facility] [place] [address]) [facility](N[place]itary Sick Call [place] [address]) OUTPATIENT [id number] eval for ffd GUSTAVO SAMAYOA 10/24 Released with Work/Duty Limitations [facility] 237) [facility](N[place]itary Sick Call [place] [address]) OUTPATIENT [id number] sore throat AARTI STOVER 10/29 Sick at Home/Quarter s [facility] 237) [facility](N[place]itary Sick Call [place] [address]) OUTPATIENT [id number] f/u strep AARTI STOVER 10/30 Released w/o Limitations [facility] 237) [facility](N[place]itary Sick Call [place] [address]) OUTPATIENT [id number] f/u L knee AARTI STOVER 11/18 Released w/o Limitations [facility]( Militar y Sick Call [facility] 237) [facility](Ph ysical Therapy/2 37) OUTPATIENT [id number] [place] 11/21 Released with Work/Duty Limitations [facility]( Physica l Therapy /237) [facility] OUTPATIENT [id number] PHYSICA L GUSTAVO VALLE 03/19 Released w/o Limitations [facility]) OUTPATIENT [id number] RITCHIE JULES 03/19 Released w/o Limitations [facility]( [facility] OUTPATIENT [id number] KOMAL SYED 03/19 Released w/o Limitations [facility]( [facility]) [facility]) OUTPATIENT [id number] SUB PHYS TAMIA DRUMMOND 03/31 Released w/o Limitations [facility]( [facility]) [facility](Gr oton Immunizat ion) OUTPATIENT [id number] Immuniz ations SAM PIRES E 04/08 Released w/o Limitations [facility]( [facility]) [facility]) OUTPATIENT [id number] SUB DUTY PE SIMON EDMONDSON 05/01 Released with Work/Duty Limitations [facility]) OUTPATIENT [id number] mental health clearan SIMON Rosario 07/14 Released with Work/Duty Limitations [facility]) OUTPATIENT [id number] R Hand injury LIZETH JENKINS 07/17 Released with Work/Duty Limitations [facility]( [facility]) [facility](Immuniz ations [facility]) OUTPATIENT [id number] ppd/flu mist PASQUALE PLASCENCIA 08/28 Released w/o Limitations [facility](Imm unizati ons [facility] ) [facility](Immuniz ations [facility]) OUTPATIENT [id number] ppd read JAZZ DAVIS 08/31 Released w/o Limitations [facility](Imm unizati ons [facility] ) [facility] ER, DIRECT TO [facility] [id number] ANA HANLEY Nicanor 01/15 RETURNED TO DUTY [facility](Nutriti on NMCP) INPATIENT [id number] CHIDI Sterling 01/19 Inpatient- Still a Patient [facility](Nut rition NMCP) [facility](Nutriti on NMCP) INPATIENT [id number] TF f/u CHIDI ROBERT 01/24 Inpatient- Still a Patient [facility](Nut rition NMCP) [facility](Infecti ous Disease NMCP) INPATIENT [id number] TETO GARCÍA 01/26 Inpatient- Still a Patient [facility](Inf ectious Disease NMCP) [facility](Nutriti on NMCP) INPATIENT [id number] TF f/u CHIDI ROBERT 01/27 Inpatient- Still a Patient [facility](Nut rition NMCP) [facility](Infecti ous Disease NMCP) INPATIENT [id number] ELIEL TANG 01/27 Inpatient- Still a Patient [facility](Inf ectious Disease NMCP) [facility](Cardiol ogy NMCP) INPATIENT [id number] LUZMARIA Gaming 01/28 Inpatient- Still a Patient [facility](Car diology NMCP) [facility](Social Work NMCP) INPATIENT [id number] Psycho- social assessm ent HECTOR DODGE 02/03 Inpatient- Still a Patient [facility](Soc ial Work [facility]) [facility](Speech Pathology [facility]) INPATIENT [id number] Evaluat e for Ki Reilly Angela smith Valve JENNIFERALLISONShalom Hernandez 02/07 Inpatient- Still a Patient [facility](Spe ech Patholo gy NMCP) [facility](Speech Pathology [facility]) INPATIENT [id number] AVM JENNIFERALLISONA H 02/08 Inpatient- Still a Patient [facility](Spe ech Patholo gy NMCP) [facility](Speech Pathology [facility]) INPATIENT [id number] JENNIFER ODALIS H 02/09 Inpatient- Still a Patient [facility](Spe ech Patholo gy NMCP) [facility](Speech Pathology [facility]) INPATIENT [id number] JENNIFERALLISONA H 02/10 Inpatient- Still a Patient [facility](Spe ech Patholo gy NMCP) [facility](Occ Therapy NMCP) [facility]PAT[facility] [id number] [facility]10 Inpatient- Still a Patient [facility](Occ Therapy NMCP) [facility](Occ Therapy NM[facility]) INPATIENT [id number] [facility] 02/14 [facility]- [facility](Occ Therapy NM[facility]) INPATIENT [id number] [facility]14 Inpatient- Still a Patient [facility](Occ Therapy NMCP) [facility](Nutriti on NMCP) INPATIENT [id number] GALAYOLANDA A 02/15 Inpatient- Still a Patient [facility](Nut rition NMCP) [facility] [place] [facility](Occ Therapy NMCP) INPATIENT [id number] [facility] 02/16 Inpatient- Still a Patient [facility](Occ Therapy NMCP) [facility] [facility](Speech Pathology NM[facility]) INPATIENT [id number] Re assess Swallow functio n ODALIS RODRIGUEZ H 02/16 Inpatient- Still a Patient [facility]Spe [facility] Path[facility]) [facility](Occ Therapy NMCP) INPATIENT [id number] inp JAZZ Moe 02/16 Inpatient- Still a Patient [facility] Therapy NM[facility]) [facility](Speech Pathology NMCP) INPATIENT [id number] ODALIS RODRIGUEZ H 02/16 Inpatient- Still a Patient [facility](Spe ech Patholo gy NMCP) [facility](Speech Pathology NMCP) INPATIENT [id number] Dysphag ia tx ODALIS RODRIGUEZ H 02/17 Inpatient- Half-Way Facility [facility](Spe ech Patholo gy NMCP) [facility] [facility](Case Managemen t [facility]) OUTPATIENT [id number] CASE MANAGEM ENT LONG, IVANNA S 03/08 Released w/o Limitations [facility](Dajuan e Managem ent [facility]) [facility](Case Managemen t [facility]) OUTPATIENT [id number] CASE MANAGEM ENT LONG, IVANNA S 03/09 Released w/o Limitations [facility](Dajuan e Managem ent [facility]) [facility] [facility](Case Mgmt Active Duty (AD)) OUTPATIENT [id number] CASE MANAGEM ENT LONG, IVANNA S 03/10 Released w/o Limitations [facility](Dajuan e Mgmt Active Duty (AD)) [facility](Case Mgmt Active Duty (AD)) OUTPATIENT [id number] LONG, IVANNA S 03/14 Released w/o Limitations [facility](Dajuan e Mgmt Active Duty (AD)) [facility] [place] [facility](Case Mgmt Active Duty (AD)) OUTPATIENT [id number] CASE MANAGEM ENT LONG, IVANNA S 03/15 [facility]ased w/o Limitations [facility](Dajuan e Mgmt Active Duty (AD)) [facility](Case Managemen t [facility]) OUTPATIENT [id number] CASE MANAGEM ENT LONG, IVANNA S 03/17 Released w/o Limitations [facility](Dajuan e Managem ent [facility]) [facility](Case Mgmt Active Duty (AD)) OUTPATIENT [id number] CASE MANAGEM ENT IVANNA CORTÉS S 03/18 Released w/o Limitations [facility](Dajuan e Mgmt Active Duty (AD)) [facility] [place] [facility](Neurosu rgery NMCP) OUTPATIENT [id number] preangi o for 04/11/dc from [facility]/wy n leave ANA HANLEY 03/25 Released w/o Limitations [facility](William rosurge ry NMCP) [facility]) OUTPATIENT [id number] bump under R armpit x 3 days MARYLU HODGES 04/05 Released w/o Limitations [facility] ) [place] [facility] DIRECT TO MTF FROM OTHER THAN ER OR [facility] [id number] EDUIN TORRES RACHEL 04/11 [employer] [facility] [facility](Neurosu rgery NMCP) OUTPATIENT [id number] f/u after angiogr am 04/11 ANA HANLEY 04/14 Released w/o Limitations [facility](William rosurge ry NMCP) [facility] [place] [facility] ADMISSION RESULTING FROM [facility], DIRECT TO MTF [id number] ANA HANLEY 04/19 RETURNED TO DUTY [facility](Neurosu rgery NMCP) TELE CONSULT [id number] please call pt post surgery . Dr.Cobe brown, perform ed surgery 2 weeks ago. CHELSEA NEAL 05/06 [facility](William rosurge ry NMCP) [facility] [place](Case Managemen t [facility] [place] [facility]) OUTPATIENT [id number] Case Managem ent IVANNA CORTÉS S 05/06 Released w/o Limitations [facility](Dajuan e Managem ent [facility] [facility](Neurosu rgery NMCP) TELE CONSULT [id number] pt would like for you to call him back, did not give details as to why. CHELSEA NEAL 05/23 [facility](William rosurge ry NMCP) [facility] [place] [facility](Neurosu rgery NMCP) OUTPATIENT [id number] 1st post op f/u; no xrays ANA HANLEY 05/31 Released w/o Limitations [facility](William rosurge ry NMCP) [facility] [place] [facility](Neurosu rgery NMCP) TELE CONSULT [id number] QUESTIO N FOR YOU CHELSEA NEAL 06/22 [facility](William rosurge ry NMCP) [facility] [place] [facility]) OUTPATIENT [id number] c/o hang nail ingrown on lt foot 3 wks ANUJ BONE 06/28 Released w/o Limitations [facility] ) [facility]urosu [facility]gery NM[facility]) TELE CONSULT [id number] Med board CHELSEA NEAL 07/22 [facility](William rosurge ry NMCP) [facility]urosu [facility]gery NM[facility]) TELE CONSULT [id number] Questio n CHELSEA NEAL 08/03 [facility](William rosurge ry NMCP) [facility] [place] (Case Mgmt Active Duty (AD)) OUTPATIENT [id number] Case Managem ent IVANNA CORTÉS S 08/16 Released w/o Limitations [facility](Dajuan e Mgmt Active Duty (AD)) [facility](Case Mgmt Active Duty (AD)) OUTPATIENT [id number] Case Managem ent IVANNA CORTÉS S 08/17 Released w/o Limitations [facility](Dajuan e Mgmt Active Duty (AD)) [facility] [place] [facility](Case Mgmt Active Duty (AD)) OUTPATIENT [id number] Case Managem ent IVANNA CORTÉS S 08/18 Released w/o Limitations [facility](Dajuan e Mgmt Active Duty (AD)) [facility] [place] [facility](Case Mgmt Active Duty (AD)) OUTPATIENT [id number] Case Managem ent IVANNA CORTÉS S 08/19 Released w/o Limitations [facility](Dajuan e Mgmt Active Duty (AD)) [facility] [place] [facility]) OUTPATIENT [id number] poss strep throat 2 days. TAMIA BALTAZAR 08/26 Released w/o Limitations [facility] ) [facility] [place] [facility]) OUTPATIENT [id number] sore throat, weaknes s x 8 days; already seen but not better DAKOTA MCCORMICK 09/01 Released w/o Limitations [facility] ) [facility] [place] [facility](Hearing Cons [place] [facility]) OUTPATIENT [id number] PAL MCLEOD 09/05 Released w/o Limitations [facility](Hea ring Cons [facility] [employer]) [facility] [facility](Immuniz ations [facility]) OUTPATIENT [id number] ppd/flu mist KAREEN ARMENDARIZ 09/05 Released w/o Limitations [facility](Imm unizati ons [facility] ) [facility] [place] [facility](Case Mgmt Active Duty (AD)) OUTPATIENT [id number] Case Managem ent IVANNA CORTÉS S 09/05 Released w/o Limitations [facility](Dajuan e Mgmt Active Duty (AD)) [facility] OUT[facility]IENT [id number] ppd check JESSICA SOSA 09/07 Released w/o Limitations [facility](Imm unizati ons [facility] ) [facility](Neurosu rgery [facility]) OUTPATIENT [id number] f/u EDUIN TORRES 10/04 Released with Work/Duty Limitations [facility](William rosurge ry NMCP) [facility] [place]) OUTPATIENT [id number] part 2 [facility] [place] [facility] Silvia 10/06 Released w/o Limitations [facility] [place] [place] [place] [facility](Neurosu [facility]gery [facility]) TELE CONSULT [id number] DR. HANLEY PATIENT CHELSEA NEAL 10/20 [place](William rosurge ry [facility]) [facility] [place] [facility](Case Mgmt Active Duty (AD)) OUTPATIENT [id number] Case Managem ent IVANNA CORTÉS 10/26 Released w/o Limitations [facility](Dajuan e Mgmt Active Duty (AD)) [facility] [place] [facility](Occ Therapy [facility]CP) OUTPATIENT [id number] [facility] DELETE_MEREDITH SNE 10/26 Released w/o Limitations [facility] [place](Occ Therapy [facility]) [facility] [place] [facility](Occ Therapy [facility]) OUTPATIENT [id number] LILI MONTES 10/31 Released w/o Limitations [facility] [place]Occ Therapy [facility]) [facility] [place] [facility](Occ Therapy [facility]) OUTPATIENT [id number] PAULO CORTÉS 11/02 Released w/o Limitations [facility] [place]Occ Therapy [place]) [facility] [place] [facility](Neurosu rgery NMCP) TELE CONSULT [id number] Letter CHELSEA NEAL 11/04 [facility](William rosurge ry NMCP) [facility] [place] [facility](Occ Therapy [facility]) OUTPATIENT [id number] PAULO CORTÉS 11/07 Released w/o Limitations [facility] [place](Occ Therapy [place]) [facility] [place] [facility](Occ Therapy [facility]) OUTPATIENT [id number] LILI MONTES 11/09 Released w/o Limitations [facility] [place](Occ Therapy [facility]) [facility] [place] [facility](Neurosu rgery [facility]) OUTPATIENT [id number] EDUIN TORRES 11/10 Released with Work/Duty Limitations [facility] [place](William rosurge ry [facility]CP) [facility] [place] [facility]) OUTPATIENT [id number] Headach es since Sep 2008 DENISE BUSH Shalom 11/16 Released w/o Limitations [facility](Mil AC [facility] ) [facility] [place] [facility](Neurosu rgery NMCP) TELE CONSULT [id number] dr torres patient . HAN SHAH 11/16 [facility](William rosurge ry NMCP) [facility] [place] [facility](Occ Therapy NMCP) OUTPATIENT [id number] LILI MONTES 11/17 Released w/o Limitations [facility](Occ Therapy NMCP) [facility] [place] [facility](Neurosu rgery NMCP) TELE CONSULT [id number] pt status post brain hemmora ge now having difficu lt painful swallow ing. HAN SHAH 11/21 [facility](William rosurge ry NMCP) [facility] [place] [facility](Occ Therapy NMCP) OUTPATIENT [id number] LILI MONTES 11/21 Released w/o Limitations [facility](Occ Therapy NMCP) [facility] [place](Case Mgmt Active Duty (AD)) OUTPATIENT [id number] Case Managem ent IVANNA CORTÉS 11/23 Released w/o Limitations [facility](Dajuan e Mgmt Active Duty (AD)) [facility] [place] [facility](Occ Therapy [facility]) OUTPATIENT [id number] PAULO CORTÉS 11/23 Released w/o Limitations [facility](Occ Therapy NMCP) [facility] [place] [facility]) OUTPATIENT [id number] H/A since Sep ZAINAB SHETH 11/24 Released w/o Limitations [facility] ) [facility] [place] [facility](Occ Therapy [facility]) OUTPATIENT [id number] MEREDITH ABDULLAHI 11/25 Released w/o Limitations [facility]Occ Therapy [facility]) [facility] [place] [facility](Case Mgmt Active Duty (AD)) OUTPATIENT [id number] Case Managem ent IVANNA CORTÉS S 12/26 Released w/o Limitations [facility] [place](Dajuan e Mgmt Active Duty (AD)) [facility] [place] [facility](Neurosu rgery NMCP) TELE CONSULT [id number] Hi patient CHELSEA NEAL 01/19 [facility] [place](William rosurge ry NMCP) [facility] [place] [facility](Case Mgmt Active Duty (AD)) OUTPATIENT [id number] Case Managem IVANNA Slade S 01/23 Released w/o Limitations [facility] [place](Dajuan e Mgmt Active Duty (AD)) [facility] [place]([employer]) OUTPATIENT [id number] 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 LATONYA MARADIAGA 02/02 Released w/o Limitations [facility] [place] [employer] ) [facility] [place]([employer] Aqu[employer] NMCP) OUTPATIENT [id number] RENEE GREENWOOD 02/16 Released w/o Limitations [facility] [place](Phy s Ther Aquatic Team NMCP) [facility] [place]([employer]) OUTPATIENT [id number] HARVEY KONG 02/24 Released w/o Limitations [facility] [place] [employer] ) [facility] [place](Case Mgmt Active Duty (AD)) OUTPATIENT [id number] Case Managem IVANNA Slade S 02/24 Released w/o Limitations [facility] [place](Dajuan e Mgmt Active Duty (AD)) [facility] [place] [facility]([employer]) OUTPATIENT [id number] NORAH JIMENEZ V 02/28 Released w/o Limitations [facility] [place] ) [facility] [place] [facility]([employer]) OUTPATIENT [id number] HARVEY KONG 03/01 Released w/o Limitations [facility] [place] ) [facility] [place] [facility](Case Mgmt Active Duty (AD)) OUTPATIENT [id number] Case Managem IVANNA Slade S 03/03 Released w/o Limitations [facility] [place](Dajuan e Mgmt Active Duty (AD)) [facility] [place] [facility]([employer]) OUTPATIENT [id number] HARVEY KONG 03/06 Released w/o Limitations [facility] [place] [employer] ) [facility] [place] [facility]([employer]) OUTPATIENT [id number] HARVEY KONG 03/13 Released w/o Limitations [facility] [place] [employer] ) [facility] [place] [facility]([employer]) OUTPATIENT [id number] DYLLAN JIMENEZICA V 03/14 Released w/o Limitations [facility] [place] [employer] ) [facility] [place] [facility]([employer]) OUTPATIENT [id number] HARVEY KONG 03/15 Released w/o Limitations [facility] [place] [employer] ) [facility] [place]([employer]) OUTPATIENT [id number] JIMENEZNORHA V 03/21 Released w/o Limitations [facility] [place]([facility] [employer] ) [facility] [place] [facility]([employer]) OUTPATIENT [id number] HARVEY KONG 03/27 Released w/o Limitations [facility] [place] [employer] ) [facility] [place] [facility]([employer]) OUTPATIENT [id number] ELVIA JEFFERS 04/12 Released w/o Limitations [facility] [place]([employer] ) [facility] [place] [facility]([employer]) OUTPATIENT [id number] ELVIA JEFFERS 04/14 Released w/o Limitations [facility] [place]([employer] ) [facility] [place] [facility](Case Mgmt Active Duty (AD)) OUTPATIENT [id number] Case Managem ent IVANNA CORTÉS 04/17 Released w/o Limitations [facility] [place](Dajuan e Mgmt Active Duty (AD)) [facility] [place] [facility](Neurosu rgery NMCP) TELE CONSULT [id number] pt has shashank boucher medical board HAN SHAH 05/22 [facility](William rosurge ry NMCP) [facility] OUTPATIENT [id number] f/u for med boards ANA HANLEY 05/24 Released w/o Limitations [facility](William rosurge ry NMCP) [facility] [place] [facility](Case Mgmt Active Duty (AD)) OUTPATIENT [id number] Case Managem ent IVANNA CORTÉS S 05/29 Released w/o Limitations [facility](Dajuan e Mgmt Active Duty (AD)) [facility] [place] OUTPATIENT [id number] CHRIS Bartholomew S 06/01 Released w/o Limitations [facility](Phy s Exam [place]) [facility](Hearing Cons [place]) OUTPATIENT [id number] SIDNEY DICKERSON 06/01 Released w/o Limitations [facility](Hea ring Cons [place]) [facility]) OUTPATIENT [id number] sore throat x 4 days MEREDITH PAGE 06/16 Sick at Home/Quarter s [facility] ) [facility](Neurosu rgery NMCP) TELE CONSULT [id number] prabhakar fontenot. would like to discuss med board. info cnt#[phone] ÁNGEL CHELSEA L 06/23 [facility](William rosurge ry NMCP) [facility](Case Mgmt Active Duty (AD)) OUTPATIENT [id number] Case Managem ent IVANNA CORTÉS S 08/01 Released w/o Limitations [facility](Dajuan e Mgmt Active Duty (AD)) [facility](Primary Care Clinic [place]) OUTPATIENT [id number] RIGHT WRIST PAIN ZAINAB SHETH 08/02 Released w/o Limitations [facility] [place] ) [facility] [place] (Optomet ry [place]) OUTPATIENT [id number] eye exam DOROTHY SUHN 08/04 Released w/o Limitations [facility](Opt ometry [place]) [facility](Immuniz ation NMCP) OUTPATIENT [id number] Adult Imms - Flumist LSIA PRASAD N P 08/17 Released w/o Limitations [facility](Imm unizati on NMCP) [facility](Neurosu rgery NMCP) TELE CONSULT [id number] Dr.Cobe brown pt. Mrs. Harvey rubio of Med Boards request ing consult for pt. 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 [place]) OUTPATIENT [id number] TAMIA CARMONA 09/05 Released w/o Limitations [facility](Phy s Ther [place]) [facility](Occ Therapy [place]) OUTPATIENT [id number] AVM PAL Powell 09/12 Released w/o Limitations [facility](Occ Therapy NMCP) [facility](Case Mgmt Active Duty (AD)) OUTPATIENT [id number] Case Managem ent IVANNA CORTÉS 09/21 Released w/o Limitations [facility](Dajuan e Mgmt Active Duty (AD)) [facility] OUTPATIENT [id number] UPDATE LIMITED PROFILE FOR ZAINAB JACOME 11/01 Released w/o Limitations [facility](Immuniz ations [facility]) OUTPATIENT [id number] VACCINE S WILTON SILVA 11/15 Released w/o Limitations [facility](Imm unizati ons [facility] ) [facility](Immuniz ations [facility]) OUTPATIENT [id number] vaccine JESSICA SOSA D 11/21 Released w/o Limitations [facility](Imm unizati ons [facility] ) [facility]([place]) OUTPATIENT [id number] MEDICAL ASSIGNM ENT SCREEN (STANDB Y) KERRI TREJO 11/24 Released w/o Limitations [facility](Ove rseas Screeni ng [place] ) [facility]) OUTPATIENT [id number] Pain in tonsils /throat , hot flashes IRENE FERGUSON 11/28 Released w/o Limitations [facility] ) [facility](Neurosu rgery NMCP) TELE CONSULT [id number] pt's CO would like to speak with Dr Hanley [id number] CHELSEA SHINE 11/30 [facility](William rosurge ry NMCP) [facility](Neurosu rgery NMCP) OUTPATIENT [id number] f/u ANA HANLEY 12/01 Released w/o Limitations [facility](William rosurge ry NMCP) [facility](Primary Care [facility]) OUTPATIENT [id number] R MAGAÑA PAIN ZAINAB SHETH T 12/05 Released w/o Limitations [facility] ) [facility](Case Mgmt Active Duty (AD)) OUTPATIENT [id number] Case Managem ent LONGIVANNA S 12/15 Released w/o Limitations [facility](Dajuan e Mgmt Active Duty (AD)) [facility](Immuniz ations [facility]) OUTPATIENT [id number] vaccine CIERA FOREMAN 01/09 Released w/o Limitations [facility](Imm unizati ons [facility] ) [facility]) OUTPATIENT [id number] Chest Pain EMMA WHALEY 01/17 Released w/o Limitations [facility] ) [facility]) OUTPATIENT [id number] Injured right foot during PT x 5 days AYAD JEAN Son 02/21 Released w/o Limitations [facility] ) [facility](Primary Care [facility]) OUTPATIENT [id number] f/u xray results ZAINAB SHETH 03/06 Released w/o Limitations [facility] ) [facility](Neurosu afshin NMCP) TELE CONSULT [id number] Dr Hanley Pt . needs form stating he can fly. Pt leaving [place] on 7[place]6 ÁNGEL, CHELSEA L 03/26 [facility](William rosurge ry NMCP) [facility]) OUTPATIENT [id number] sore throat EMMA WHALEY EDWARD 03/28 Released w/o Limitations [facility] ) [facility]) OUTPATIENT [id number] seen yesterd ay for sorethr oat today throat is worse BRENT HARRISON 03/29 Released w/o Limitations [facility] ) [facility](Immuniz ations [facility]) OUTPATIENT [id number] vaccine JAZZ DAVIS 05/09 Released w/o Limitations [facility](Imm unizati ons [facility] ) [facility](Primary Care Clinic [facility]) OUTPATIENT [id number] R FOOT EVALUAT ION ZAINAB SHETH 05/15 Released w/o Limitations [facility] ) [facility](Immuniz ations [facility]) OUTPATIENT [id number] vaccine KAREEN ARMENDARIZ 05/21 Released w/o Limitations [facility](Imm unizati ons [facility] ) [facility](Phys Exam [place]) OUTPATIENT [id number] SEPARAT ION PHYSICA L [id number] CHRIS CHONG 05/22 Released w/o Limitations [facility](Phy s Exam [place]) [facility](Neurosu rgery [place]) TELE CONSULT [id number] Pt c/o of more frequen t paralys is, since surgery . 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 CASEHAN 08/01 [facility](William rosurge ry NMCP) [facility] Outpatient Encounter [id number] 05/23 [facility] En[facility] [id number] 05/29 [facility] Outpatient Encounter [id number] 07/05 [facility]P EST MOD 30 MIN [id number] Diagnos is: ICD-10- CM G40.89 Other seizure s Radha OSBORNE UAN 10/07 [facility] Outpatient Encounter [id number] 10/08 [facility] OFFICE O/P EST MOD 30 MIN [id number] Diagnos is: ICD-10- CM 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, site unspeci HARI Hale 12/29 [facility] Outpatient Encounter [id number] 03/16 [facility] Outpatient Encounter [id number] CHRISTINE SALDIVAR 03/18 [facility] OFFICE O/P EST LOW 20 MIN [id number] Diagnos is: ICD-10- CM Z00.00 Encntr for general adult medical exam w/o abnorma l finding s Nicanor KENNEDY L 03/18 [facility] Outpatient Encounter [id number] 04/07 [facility] Outpatient Encounter [id number] 07/13 [facility] Outpatient Encounter [id number] 09/09 [facility] Procedures Combined list of: 1) Procedures from Department of [facility] Affairs facilities going back up to thelast 18 months, not all VA non-surgical procedures are included; 2) All procedures from the Department of Defense facilities. Procedure Procedure Type Code Date Perfomer Comments Sourc e PT A e ment Kinetic Training PT Assessment Kinetic Training 23576 2007 JAZZ CARTER Patient Training And Self-Care Skills Patient Training And Self-Care Skills 54261 2007 JAZZ CARTER A isted Exercises For ROM Assisted Exercises For ROM 40500 2007 JAZZ CARTER Treatment Of Swallowing Dysfunction Treatment Of Swallowing Dysfunction 56222 2007 ODALIS RODRIGUEZ MD Supervised Individual Speech/Hearing Therapy 2007 ODALIS RODRIGUEZ Treatment Of Swallowing Dysfunction Treatment Of Swallowing Dysfunction 81241 2007 JENNIFER ODALIS H [facility] Tracheostomy speaking valve 2007 ALLISON RODRIGUEZShalom Hernandez [facility] Evaluation of Speech / Hearing Problem 2007 ALLISON RODRIGUEZShalom Hernandez [facility] Evaluation Of Swallowing And Oral Function Evaluation Of Swallowing And Oral Function 82662 2007 JENNIFERODALIS [facility] Tracheostomy speaking valve 2007 JENNIFER ODALIS H [facility] Health And Behav A e mt Each 15 Min Initial A e ment Health And Behav Assessmt Each 15 Min Initial Assessment 58956 2007 HECTOR DODGE [facility] Medical Nutrition Therapy Re-a e ment And Intervention Each 15 Minutes Medical Nutrition Therapy Re-assessment And Intervention Each 15 Minutes 77639 2007 CHIDI ROBERT [facility] Medical Nutrition Therapy Re-a e ment And Intervention Each 15 Minutes Medical Nutrition Therapy Re-assessment And Intervention Each 15 Minutes 35243 2007 CHIDI ROBERT [facility] Medical Nutrition Therapy Re-a e ment And Intervention Each 15 Minutes Medical Nutrition Therapy Re-assessment And Intervention Each 15 Minutes 18494 2007 CHIDI ROBERT [facility] Immunization Admin By Intranasal / Oral Route One Vaccine Immunization Admin By Intranasal / Oral Route One Vaccine 88395 2006 PASQUALE PLASCENCIA [facility] Influenza Virus Vaccine Intranasal Live Attenuated 2006 PASQUALE PLASCENCIA [facility] Skin Test Anergy Tuberculin Intradermal Skin Test Anergy Tuberculin Intradermal 80357 2006 PASQUALE PLASCENCIA [facility] Psychotherapy Individual Approximately 30 Minutes Psychotherapy Individual Approximately 30 Minutes 19785 2006 ALESSIA TAN [facility] Psychiatric Diagnostic Evaluation Comprehensive Examination Psychiatric Diagnostic Evaluation Comprehensive Examination 23048 2006 ALESSAI TAN [facility] Hepatitis A And Hepatitis B (Intramuscular Use) Adult Dosage Hepatitis A And Hepatitis B (Intramuscular Use) Adult Dosage 04595 2006 ROQUE WHITNEY [facility] Immunization Administration By Injection, One Vaccine Immunization Administration By Injection, One Vaccine 87088 2006 ROQUE WHITNEY [facility] Threshold Audiogram (Pure Tone) Threshold Audiogram (Pure Tone) 09709 2006 KOMAL SYED [facility] Audiogram (Screening) Audiogram (Screening) 22674 2006 RITCHIE YOUNG Ophthalmological New Patient Start Comprehensive Care Ophthalmological New Patient Start Comprehensive Care 52400 2006 GUSTAVO VALLE Determination Of Refractive State Determination Of Refractive State 05842 2006 GUSTAVO VALLE A isted Exercises For ROM Assisted Exercises For ROM 32768 2006 BRET VILLA PT A e ment Kinetic Training Initial 30 Minutes PT Assessment Kinetic Training Initial 30 Minutes 69650 2006 BRET VILLA Physical Medicine - Group Physical Therapy Se ion Physical Medicine - Group Physical Therapy Session 43864 2006 BRET VILLA Psychiatric Therapy Environmental Intervention Psychiatric Therapy Environmental Intervention 75157 2006 LEMUEL SAMPSON Psychotherapy Individual Approximately 30 Minutes Psychotherapy Individual Approximately 30 Minutes 52428 2006 LEMUEL SAMPSON Psychologic Testing And Report Administered By Computer Psychologic Testing And Report Administered By Computer 33347 2006 LEMUEL SAMPSON Psychiatric Diagnostic Evaluation Comprehensive Examination Psychiatric Diagnostic Evaluation Comprehensive Examination 84063 2006 LEMUEL SAMPSON Skin Test Anergy Tuberculin Intradermal Skin Test Anergy Tuberculin Intradermal 34834 2009 KAREEN ARMENDARIZ [facility] Skin Test Anergy Tuberculin Intradermal Skin Test Anergy Tuberculin Intradermal 31749 2009 JAZZ DAVIS Electrocardiogram Electrocardiogram 55369 01/17 EMMA WHALEY [facility] Skin Test Anergy Tuberculin Intradermal Skin Test Anergy Tuberculin Intradermal 38833 2009 CIERA FOREMAN Coordinated care fee, risk adjusted maintenance 2009 IVANNA CORTÉS [facility] Case Management, each 15 minutes 2009 IVANNA CORTÉS [facility] Influenza Virus Vaccine Pandemic Formulation Influenza Virus Vaccine Pandemic Formulation 42121 2009 WILTON SILVA Immunization Admin By Intranasal / Oral Route One Vaccine Immunization Admin By Intranasal / Oral Route One Vaccine 49119 2009 WILTON SILVA Immunization Administration By Injection, Each Additional Vaccine 2009 WILTON SILVA Typhoid Vaccine Vi Capsular Polysaccharide, For Intramus Use Typhoid Vaccine Vi Capsular Polysaccharide, For Intramus Use 68909 2009 WILTON SILVA [facility] Skin Test Anergy Tuberculin Intradermal Skin Test Anergy Tuberculin Intradermal 66720 2009 WILTON SILVA [facility] Coordinated care fee, risk adjusted maintenance, Level 4 2009 LYDIA CORTÉSA S [facility] Case Management, each 15 minutes 2009 LONGLYDIAA S [facility] Occupational Therapy Evaluation Occupational Therapy Evaluation 74033 2008 PAL NIEVES 30 min [facility] Physical Therapy Service Re-Evaluation Physical Therapy Service Re-Evaluation 91443 2008 TAMIA CARMONA [facility] Influenza Virus Vaccine Intranasal Live Attenuated 2008 HEIDE PRASAD [facility] Immunization Admin By Intranasal / Oral Route One Vaccine Immunization Admin By Intranasal / Oral Route One Vaccine 41422 2008 HEIDE PRASAD [facility] Coordinated care fee, risk adjusted maintenance, Level 4 2008 MOO IVANNA S [facility] Spectacles Services Fitting Monofocal Except For Aphakia Spectacles Services Fitting Monofocal Except For Aphakia [id number] 2008 D[facility]OTHY SUH [facility] Determination Of Refractive State Determination Of Refractive State [id number] 2008 [facility]OTHY [facility] Ophthalmological New Patient Start Comprehensive Care Ophthalmological New Patient Start Comprehensive Care [id number] 2008 DOROTYH [facility] Physician Supervised Specimen Handling / Transfer: Office To Lab Physician Supervised Specimen Handling / Transfer: Office To Lab 45165 2008 MEREDITH PAGE [facility] Coordinated care fee, risk adjusted maintenance, Level 4 2008 MOO IVANNA S [facility] Case Management, each 15 minutes 2008 MOO IVANNA S [facility] Audiogram (Screening) Audiogram (Screening) 15160 2008 SIDNEY DICKERSON [facility] Audiometry Group Testing Audiometry Group Testing 01450 2008 SIDNEY DICKERSON [facility] Coordinated care fee, risk adjusted maintenance, Level 4 2008 MOO IVANNA S [facility] Case Management, each 15 minutes 2008 MOO IVANNA S [facility] Physical Therapy: ___ Se ion Segments, 15 Minutes Each Physical Therapy: ___ Session Segments, 15 Minutes Each [id number] 2008 ELVIA JEFFERS M x 20 mins DoD Physical Therapy: ___ Se ion Segments, 15 Minutes Each Physical Therapy: ___ Session Segments, 15 Minutes Each 75197 2008 ELVIA JEFFERS x 30 mins DoD Phys Therapy Education Self Care Training - Per 15 Minutes Phys Therapy Education Self Care Training - Per 15 Minutes [id number] 2008 HARVEY KONG [facility] Physical Therapy: ___ Se ion Segments, 15 Minutes Each Physical Therapy: ___ Session Segments, 15 Minutes Each 53683 2008 NORAH JIMENEZ V DoD Aquatic Exercises Aquatic Exercises 20084 03/15 NORAH JIMENEZ V DoD Phys Therapy Education Self Care Training - Per 15 Minutes Phys Therapy Education Self Care Training - Per 15 Minutes 96527 2008 HARVEY KONG Phys Therapy Education Self Care Training - Per 15 Minutes Phys Therapy Education Self Care Training - Per 15 Minutes 74828 2008 HARVEY KONG Phys Therapy Education Self Care Training - Per 15 Minutes Phys Therapy Education Self Care Training - Per 15 Minutes 24013 2008 HARVEY KONG [facility] Coordinated care fee, risk adjusted maintenance, Level [...] Self Care Training - Per 15 Minutes 81230 2008 HARVEY KONG [facility] Aquatic Exercises Aquatic Exercises 25355 02/28 NORAH JIMENEZ V [facility] Phys Therapy Education Self Care Training - Per 15 Minutes Phys Therapy Education Self Care Training - Per 15 Minutes 31126 2008 HARVEY KONG [facility] Aquatic Exercises Aquatic Exercises 96200 02/16 RENEE GREENWOOD [facility] Physical Therapy Service Evaluation Physical Therapy Service Evaluation 56980 2008 LATONYA MARADIAGA [facility] Coordinated care fee, risk adjusted maintenance, Level 4 2008 LONG, IVANNA S DoD Case Management, each 15 minutes 2008 LONG, IVANNA S DoD Coordinated care fee, risk adjusted maintenance, Level 4 2008 LONG, IVANNA S DoD Case Management, each 15 minutes 2008 MOOLYDIAA S [facility] Occupational Therapy Re-Evaluation Occupational Therapy Re-Evaluation 11385 2008 MEREDITH LOMELI [facility] PT A e ment Kinetic Training PT Assessment Kinetic Training 49346 2008 MOO PAULO A DoD Coordinated care fee, risk adjusted maintenance, Level 3 2008 LONGLYDIAA S DoD Case Management, each 15 minutes 2008 MOOLYDIAA S DoD PT A e ment Kinetic Training PT Assessment Kinetic Training 94395 2008 LILI MONTES PT A e ment Kinetic Training PT Assessment Kinetic Training 27228 2008 LILI MONTES PT A e ment Kinetic Training PT Assessment Kinetic Training 19868 2008 LILI MONTES Psychometric Neuropsych Testing Battery Admin By Physician Psychometric Neuropsych Testing Battery Admin By Physician 91702 2008 MONICA WATSON [facility] PT A e ment Kinetic Training PT Assessment Kinetic Training 33989 2008 MOO PAULO A Martín PT A e ment Kinetic Training PT Assessment Kinetic Training 15972 2008 MOO PAULO A DoD PT A e ment Kinetic Training PT Assessment Kinetic Training 13783 2008 PAULO CORTÉS Psychometric Neuropsych Testing Battery Admin By Physician Psychometric Neuropsych Testing Battery Admin By Physician 16528 2008 JATINDER GARCIA Psychometric Neuropsych Testing Battery Admin By Microsoft Developer Psychometric Neuropsych Testing Battery Admin By Microsoft Developer 99271 2008 JATINDER GARCIA [facility] A isted Exercises [place] Assisted [place] 01397 2008 TIAGOTEMEREDITH IZAGUIRRE Patient Training And Self-Care Skills Patient Training And Self-Care Skills 70091 2008 MEREDITH LOMELI Occupational Therapy Evaluation Occupational Therapy Evaluation 03964 2008 MEREDITH LOMELI Coordinated care fee, risk adjusted maintenance, Level 3 2008 LONGLYDIAA S DoD Case Management, each 15 minutes 2008 MOO IVANNA S [facility] Psychologic Testing And Report Administered By Computer Psychologic Testing And Report Administered By Computer 08100 2008 JATINDER GARCIA [facility] Psychometric Neuropsych Testing Battery Admin By Microsoft Developer Psychometric Neuropsych Testing Battery Admin By Microsoft Developer 90605 2008 JATINDER GARCIA [facility] Psychiatric Diagnostic Evaluation Comprehensive Examination Psychiatric Diagnostic Evaluation Comprehensive Examination 45109 2008 MONICA WATSON [facility] Screening Test Of Visual Acuity, Quantitative, Bilateral Screening Test Of Visual Acuity, Quantitative, Bilateral 67105 2008 SIERRA DE LA ROSA [facility] Coordinated care fee, risk adjusted maintenance, Level 3 2007 LONG, IVANNA S DoD Case Management, each 15 minutes 2007 LONG, IVANNA S [facility] Audiometry Group Testing Audiometry Group Testing 53130 2007 PAL MCLEOD [facility] Immunization Admin By Intranasal / Oral Route One Vaccine Immunization Admin By Intranasal / Oral Route One Vaccine 47862 2007 [facility] Influenza Virus Vaccine [facility]al [facility]ated [facility] Skin Test Anergy Tuberculin Intradermal Skin Test Anergy Tuberculin Intradermal 96719 2007 [facility] Venipuncture Venipuncture 14049 2007 DAKOTA MCCORMICK [facility] Physician Supervised Specimen Handling / Transfer: Office To Lab Physician Supervised Specimen Handling / Transfer: Office To Lab 24508 2007 DAKOTA MCCORMICK [facility] Physician Supervised Specimen Handling / Transfer: Office To Lab Physician Supervised Specimen Handling / Transfer: Office To Lab 17216 2007 TAMIA BALTAZAR DoD Case Management, each [...] each 15 minutes 2007 LONG, IVANNA S [facility] Treatment Of Swallowing Dysfunction Treatment Of Swallowing Dysfunction 66071 2007 ODALIS RODRIGUEZ [facility] Physical Therapy Neuromuscular Re-education Physical Therapy Neuromuscular Re-education 27928 2007 JAZZ CARTER [facility] Treatment Of Swallowing Dysfunction Treatment Of Swallowing Dysfunction 82147 2007 ODALIS RODRIGUEZ [facility] Patient Training And Self-Care Skills Patient Training And Self-Care Skills 86064 2007 JAZZ CARTER [facility] Medical Nutrition Therapy Re-a e ment And Intervention Each 15 Minutes Medical Nutrition Therapy Re-assessment And Intervention Each 15 Minutes 96256 2007 YOLANDA CEDEÑO [facility] Patient Training And Self-Care Skills Patient Training And Self-Care Skills 69536 2007 JAZZ CARTER [facility] Physical Therapy Neuromuscular Re-education Physical Therapy Neuromuscular Re-education 94032 2007 JAZZ CARTER [facility] INDIVIDUAL PSYCHOTHERAPY, INSIGHT ORIENTED, BEHAVIOR MODIFYING AND/OR SUPPORTIVE, IN AN OFFICE OR OUTPATIENT FACILITY, APPROXIMATELY 20 TO 30 MINUTES [id number] WITH THE PATIENT 2006 [facility] PSYCHIATRIC DIAGNOSTIC INTERVIEW EXAMINATION 2006 [facility] IMMUNIZATION ADMINISTRATION (INCLUDES PERCUTANEOUS, INTRADERMAL, SUBCUTANEOUS, OR INTRAMUSCULAR INJECTIONS); 1 VACCINE (SINGLE OR COMBINATION VACCINE/TOXOID) 2006 [facility] PURE TONE AUDIOMETRY (THRESHOLD); AIR ONLY 2006 [facility] DETERMINATION OF REFRACTIVE STATE 2006 [facility] THERAPEUTIC PROCEDURE, 1 OR MORE AREAS, EACH 15 MINUTES; THERAPEUTIC EXERCISES TO DEVELOP STRENGTH AND ENDURANCE, RANGE OF MOTION AND FLEXIBILITY 2006 [facility] BUPRENORPHINE IMPLANT, 74.2 MG 2006 [facility] INDIVIDUAL PSYCHOTHERAPY, INSIGHT ORIENTED, BEHAVIOR MODIFYING AND/OR SUPPORTIVE, IN AN OFFICE OR OUTPATIENT FACILITY, APPROXIMATELY 20 TO 30 MINUTES [id number] WITH THE PATIENT 2006 [facility] PSYCHOLOGICAL TSTING (INCL PSYCHODIAG ASSESSMNT, EMOTITY, INTELLECTUAL ABILITIES, PERSONALITY &PSYCHOPATHOLOGY, EG, MMPI), ADMINISTERED COMPUTER, W QUALIFIED HEALTH SILVER SPRAY WORKER INTERPRET &RPT 2006 [facility] PSYCHIATRIC DIAGNOSTIC INTERVIEW EXAMINATION 2006 [facility] THERAPEUTIC PROCEDURE, 1 OR MORE AREAS, EACH 15 MINUTES; THERAPEUTIC EXERCISES TO DEVELOP STRENGTH AND ENDURANCE, RANGE OF MOTION AND FLEXIBILITY 2005 [facility] ORAL THERMOMETER, REUSABLE, ANY TYPE, EACH 2005 [facility] TYPHOID VACCINE, CAPSULAR POLYSACCHARIDE (VICPS), FOR INTRAMUSCULAR USE 2005 [facility] BUPRENORPHINE IMPLANT, 74.2 MG 2005 [facility] SCREENING TEST OF VISUAL ACUITY, QUANTITATIVE, BILATERAL 2005 [facility] AUDIOMETRIC TESTING OF GROUPS 2005 DoD SKIN TEST; TUBERCULOSIS, INTRADERMAL 2005 [facility] SKIN TEST; TUBERCULOSIS, INTRADERMAL 2009 [facility] SKIN TEST; TUBERCULOSIS, INTRADERMAL 2009 [facility] ELECTROCARDIOGRAM, ROUTINE ECG WITH AT LEAST 12 LEADS; WITH INTERPRETATION AND REPORT 2009 [facility] SKIN TEST; TUBERCULOSIS, INTRADERMAL 2009 [facility] CASE MANAGEMENT, EACH 15 MINUTES 2009 [facility] IMMUNIZATION ADMINISTRATION (INCLUDES PERCUTANEOUS, INTRADERMAL, SUBCUTANEOUS, OR INTRAMUSCULAR INJECTIONS); EACH ADDITIONAL VACCINE (SINGLE OR COMBINATION VACCINE/TOXOID) 2009 [facility] CASE MANAGEMENT, EACH 15 MINUTES 2008 [facility] OCCUPATIONAL THERAPY EVALUATION 2008 [facility] PHYSICAL THERAPY RE-EVALUATION 2008 [facility] INFLUENZA VIRUS VACCINE, TRIVALENT, LIVE (LAIV3), FOR INTRANASAL USE 2008 [facility] FITTING OF SPECTACLES, EXCEPT FOR APHAKIA; MONOFOCAL 2008 DoD COORDINATED CARE FEE, RISK ADJUSTED MAINTENANCE, LEVEL 4 2008 [facility] HANDLING AND/OR CONVEYANCE OF SPECIMEN FOR TRANSFER FROM THE OFFICE TO A LABORATORY 2008 [facility] SCREENING TEST, PURE TONE, AIR ONLY 2008 DoD COORDINATED CARE FEE, RISK ADJUSTED MAINTENANCE, LEVEL 4 2008 DoD COORDINATED CARE FEE, RISK ADJUSTED MAINTENANCE, LEVEL 4 2008 [facility] THERAPEUTIC PROCEDURE, 1 OR MORE AREAS, EACH 15 MINUTES; THERAPEUTIC EXERCISES TO DEVELOP STRENGTH AND ENDURANCE, RANGE OF MOTION AND FLEXIBILITY 2008 [facility] THERAPEUTIC PROCEDURE, 1 OR MORE AREAS, EACH 15 MINUTES; THERAPEUTIC EXERCISES TO DEVELOP STRENGTH AND ENDURANCE, RANGE OF MOTION AND FLEXIBILITY 2008 [facility] SELF-CARE/HOME MANAGMENT TRAIN (EG,ACT OF DAILY LIVING [...] DoD CASE MANAGEMENT, EACH 15 MINUTES 2008 [facility] OCCUPATIONAL THERAPY RE-EVALUATION 2008 DoD THERAPEUTIC ACTIVITIES, [...] WISC CARD SORT TST),/HR OF PSYCHOLOGIST/PHYS TIME,BOTH [id number] ADMIN TST TO PAT & TIME INTERP [...] WISC CARD SORT TST),/HR OF PSYCHOLOGIST/PHYS TIME,BOTH [id number] ADMIN TST TO PAT & TIME INTERP TEST RES & PREP RPT 2008 DoD THERAPEUTIC PROCEDURE, 1 OR MORE AREAS, EACH 15 MINUTES; THERAPEUTIC EXERCISES TO DEVELOP STRENGTH AND ENDURANCE, RANGE OF MOTION AND FLEXIBILITY 2008 DoD COORDINATED CARE FEE, RISK ADJUSTED MAINTENANCE, LEVEL 3 2008 DoD UNLISTED SPECIAL SERVICE, PROCEDURE OR REPORT 2008 [facility] PSYCHOLOGICAL TSTING (INCL PSYCHODIAG ASSESSMNT, EMOTITY, INTELLECTUAL ABILITIES, PERSONALITY &PSYCHOPATHOLOGY, EG, MMPI), ADMINISTERED COMPUTER, W QUALIFIED HEALTH SILVER SPRAY WORKER INTERPRET &RPT 2008 [facility] PSYCHIATRIC DIAGNOSTIC INTERVIEW EXAMINATION 2008 [facility] SCREENING TEST OF VISUAL ACUITY, QUANTITATIVE, BILATERAL 2008 [facility] COORDINATED CARE FEE, RISK ADJUSTED MAINTENANCE, LEVEL 3 2007 DoD IMMUNIZATION ADMINISTRATION BY INTRANASAL OR ORAL ROUTE; 1 VACCINE (SINGLE OR COMBINATION VACCINE/TOXOID) 2007 [facility] AUDIOMETRIC TESTING OF GROUPS 2007 [facility] COLLECTION OF VENOUS BLOOD BY VENIPUNCTURE 2007 [facility] HANDLING AND/OR CONVEYANCE OF SPECIMEN FOR TRANSFER FROM THE OFFICE TO A LABORATORY 2007 DoD CASE MANAGEMENT, EACH 15 MINUTES 2007 DoD CASE MANAGEMENT, EACH 15 MINUTES 2007 DoD CASE MANAGEMENT, EACH 15 MINUTES 2007 [facility] COORDINATED CARE FEE, RISK ADJUSTED MAINTENANCE 2007 [facility]D CASE MANAGEMENT, EACH 15 MINUTES 2007 [facility] OTHER EXCISION OR DESTRUCTION OF LESION OR TISSUE OF BRAIN 2007 [facility] OTHER CRANIECTOMY 2007 [facility] ARTERIOGRAPHY OF CEREBRAL ARTERIES 2007 [facility] COMPUTERIZED AXIAL TOMOGRAPHY OF HEAD 2007 DoD [...] POSTOPERATIVE PERIOD REASON RELATED ORIGINAL PROCEDURE 2007 [facility] SURGERY OF INTRACRANIAL ARTERIOVENOUS MALFORMATION; SUPRATENTORIAL, SIMPLE 2007 [facility] UNLISTED SPECIAL SERVICE, PROCEDURE OR REPORT 2007 DoD CASE MANAGEMENT, EACH 15 MINUTES 2007 DoD CASE MANAGEMENT, EACH 15 MINUTES 2007 DoD CASE MANAGEMENT, EACH 15 MINUTES 2007 DoD CASE MANAGEMENT, EACH 15 MINUTES 2007 DoD CASE MANAGEMENT, EACH 15 MINUTES 2007 DoD CASE MANAGEMENT, EACH 15 MINUTES 2007 [facility] TEMPORARY TRACHEOSTOMY 02/17 [facility] ENTERAL INFUSION OF CONCENTRATED NUTRITIONAL SUBSTANCES 2007 [facility] VENTRICULOSTOMY 2007 [facility] OTHER INCISION OF BRAIN 01/28 [facility] INJECTION OF ANTIBIOTIC 01/28 [facility] INJECTION OF ANTICOAGULANT 2007 [facility] OTHER LAVAGE OF BRONCHUS AND TRACHEA 2007 [facility] INSERTION OF ENDOTRACHEAL TUBE 2007 [facility] OTHER OXYGEN ENRICHMENT 01/28 [facility] RESPIRATORY MEDICATION ADMINISTERED BY NEBULIZER 2007 [facility] OTHER DIAGNOSTIC ULTRASOUND 2007 [facility] DIAGNOSTIC ULTRASOUND OF HEART 2007 [facility] ARTERIOGRAPHY OF CEREBRAL ARTERIES 2007 [facility] COMPUTERIZED AXIAL TOMOGRAPHY OF ABDOMEN 2007 [facility] COMPUTERIZED AXIAL TOMOGRAPHY OF THORAX 2007 [facility] COMPUTERIZED AXIAL TOMOGRAPHY OF HEAD 2007 [facility] CONTINUOUS MECHANICAL VENTILATION FOR 96 CONSECUTIVE HOURS OR MORE 2007 [facility] PERCUTANEOUS [ENDOSCOPIC] GASTROSTOMY [PEG] 2007 [facility] VENOUS CATHETERIZATION, NOT ELSEWHERE CLASSIFIED 2007 [facility] CLOSED [ENDOSCOPIC] BIOPSY OF BRONCHUS 2007 [facility] TREATMENT OF SWALLOWING DYSFUNCTION AND/OR ORAL FUNCTION FOR FEEDING 2007 [facility] POSTOPERATIVE FOLLOW-UP VISIT, NORMALLY INCLUDED IN THE SURGICAL PACKAGE, INDICATE THAT EVALUATION & MANAGEMENT SERVICE WAS PERFORMED DURING A POSTOPERATIVE PERIOD REASON RELATED ORIGINAL PROCEDURE 2007 [facility] THERAPEUTIC PROCEDURE,1 OR MORE AREAS,EACH 15 MINUTES;NEUROMUSCULAR REEDUCATION OF MOVEMENT,BALANCE,COORDI NATION,KINESTHETIC SENSE,POSTURE,AND/OR PROPRIOCEPTION FOR SITTING AND/OR STANDING ACTIVITIES 2007 [facility] TREATMENT OF SWALLOWING DYSFUNCTION AND/OR ORAL FUNCTION FOR FEEDING 2007 [facility] THERAPEUTIC PROCEDURE, 1 OR MORE AREAS, EACH 15 MINUTES; GAIT TRAINING (INCLUDES STAIR CLIMBING) 2007 [facility] POSTOPERATIVE FOLLOW-UP VISIT, NORMALLY INCLUDED IN THE SURGICAL PACKAGE, INDICATE THAT EVALUATION & MANAGEMENT SERVICE WAS PERFORMED DURING A POSTOPERATIVE PERIOD REASON RELATED ORIGINAL PROCEDURE 2007 [facility] SELF-CARE/HOME MANAGMENT TRAIN (EG,ACT OF DAILY LIVING (ADL) &COMPENSAT TRAIN,MEAL PREPARATION,SAFETY PROCS,AND INSTRUCT IN USE OF ASST TECHNOLOGY DEV/ADPT EQUIP) DIR ONE-ON-ONE CONT,EA 15 MINUTES 2007 [facility] THERAPEUTIC PROCEDURE, 1 OR MORE AREAS, EACH 15 MINUTES; GAIT TRAINING (INCLUDES STAIR CLIMBING) 2007 [facility] MEDICAL NUTRITION THERAPY; RE-ASSESSMENT AND INTERVENTION, INDIVIDUAL, [id number] WITH THE PATIENT, EACH 15 MINUTES 2007 [facility] SELF-CARE/HOME MANAGMENT TRAIN (EG,ACT OF DAILY LIVING (ADL) &COMPENSAT TRAIN,MEAL PREPARATION,SAFETY PROCS,AND INSTRUCT IN USE OF ASST TECHNOLOGY DEV/ADPT EQUIP) DIR ONE-ON-ONE CONT,EA 15 MINUTES 2007 [facility] THERAPEUTIC ACTIVITIES, DIRECT (ONE-ON-ONE) PATIENT CONTACT (USE OF DYNAMIC ACTIVITIES TO IMPROVE FUNCTIONAL PERFORMANCE), EACH 15 MINUTES 2007 [facility] POSTOPERATIVE FOLLOW-UP VISIT, NORMALLY INCLUDED IN THE SURGICAL PACKAGE, INDICATE THAT EVALUATION & MANAGEMENT SERVICE WAS PERFORMED DURING A POSTOPERATIVE PERIOD REASON RELATED ORIGINAL PROCEDURE 2007 [facility] POSTOPERATIVE FOLLOW-UP VISIT, NORMALLY INCLUDED IN THE SURGICAL PACKAGE, INDICATE THAT EVALUATION & MANAGEMENT SERVICE WAS PERFORMED DURING A POSTOPERATIVE PERIOD REASON RELATED ORIGINAL PROCEDURE 2007 [facility] PHYSICAL THERAPY RE-EVALUATION 2007 [facility] POSTOPERATIVE FOLLOW-UP VISIT, NORMALLY INCLUDED IN THE SURGICAL PACKAGE, INDICATE THAT EVALUATION & MANAGEMENT SERVICE WAS PERFORMED DURING A POSTOPERATIVE PERIOD REASON RELATED ORIGINAL PROCEDURE 2007 [facility] THERAPEUTIC ACTIVITIES, DIRECT (ONE-ON-ONE) PATIENT CONTACT (USE OF DYNAMIC ACTIVITIES TO IMPROVE FUNCTIONAL PERFORMANCE), EACH 15 MINUTES 2007 [facility] TREATMENT OF SWALLOWING DYSFUNCTION AND/OR ORAL FUNCTION FOR FEEDING 2007 [facility] POSTOPERATIVE FOLLOW-UP VISIT, NORMALLY INCLUDED IN THE SURGICAL PACKAGE, INDICATE THAT EVALUATION & MANAGEMENT SERVICE WAS PERFORMED DURING A POSTOPERATIVE PERIOD REASON RELATED ORIGINAL PROCEDURE 2007 [facility] THERAPEUTIC ACTIVITIES, DIRECT (ONE-ON-ONE) PATIENT CONTACT (USE OF DYNAMIC ACTIVITIES TO IMPROVE FUNCTIONAL PERFORMANCE), EACH 15 MINUTES 2007 [facility] THERAPEUTIC PROCEDURE, 1 OR MORE AREAS, EACH 15 MINUTES; THERAPEUTIC EXERCISES TO DEVELOP STRENGTH AND ENDURANCE, RANGE OF MOTION AND FLEXIBILITY 2007 [facility] TREATMENT OF SWALLOWING DYSFUNCTION AND/OR ORAL FUNCTION FOR FEEDING 2007 [facility] POSTOPERATIVE FOLLOW-UP VISIT, NORMALLY INCLUDED IN THE SURGICAL PACKAGE, INDICATE THAT EVALUATION & MANAGEMENT SERVICE WAS PERFORMED DURING A POSTOPERATIVE PERIOD REASON RELATED ORIGINAL PROCEDURE 2007 [facility] POSTOPERATIVE FOLLOW-UP VISIT, NORMALLY INCLUDED IN THE SURGICAL PACKAGE, INDICATE THAT EVALUATION & MANAGEMENT SERVICE WAS PERFORMED DURING A POSTOPERATIVE PERIOD REASON RELATED ORIGINAL PROCEDURE 2007 [facility] THERAPEUTIC ACTIVITIES, DIRECT (ONE-ON-ONE) PATIENT CONTACT (USE OF DYNAMIC ACTIVITIES TO IMPROVE FUNCTIONAL PERFORMANCE), EACH 15 MINUTES 2007 [facility] TREATMENT OF SPEECH, LANGUAGE, VOICE, COMMUNICATION, AND/OR AUDITORY PROCESSING DISORDER; INDIVIDUAL 2007 [facility] MEDICAL NUTRITION THERAPY; RE-ASSESSMENT AND INTERVENTION, INDIVIDUAL, [id number] WITH THE PATIENT, EACH 15 MINUTES 2007 [facility] OCCUPATIONAL THERAPY EVALUATION 2007 [facility] THERAPEUTIC ACTIVITIES, DIRECT (ONE-ON-ONE) PATIENT CONTACT (USE OF DYNAMIC ACTIVITIES TO IMPROVE FUNCTIONAL PERFORMANCE), EACH 15 MINUTES 2007 [facility] TRACHEOSTOMY SPEAKING VALVE 2007 [facility] POSTOPERATIVE FOLLOW-UP VISIT, NORMALLY INCLUDED IN THE SURGICAL PACKAGE, INDICATE THAT EVALUATION & MANAGEMENT SERVICE WAS PERFORMED DURING A POSTOPERATIVE PERIOD REASON RELATED ORIGINAL PROCEDURE 2007 [facility] PHYSICAL THERAPY EVALUATION 2007 [facility] TRACHEOSTOMY SPEAKING VALVE 2007 DoD POSTOPERATIVE FOLLOW-UP VISIT, NORMALLY INCLUDED IN THE SURGICAL PACKAGE, INDICATE THAT EVALUATION & MANAGEMENT SERVICE WAS PERFORMED DURING A POSTOPERATIVE PERIOD REASON RELATED ORIGINAL PROCEDURE 2007 [facility] PHYSICAL THERAPY EVALUATION 2007 [facility] HEALTH&BEHAV ASSESSMENT (EG, HEALTH-FOC CLINICAL INTERVIEW, BEHAVIORAL OBSERVATIONS, PSYCHOPHYSICOLOGICAL MONITOR, HEALTH-ORIENT QUESTIONNAIRES), EA 15 MIN [id number] W THE PATIENT; INIT ASSESSMENT 2007 [facility] MEDICAL NUTRITION THERAPY; RE-ASSESSMENT AND INTERVENTION, INDIVIDUAL, [id number] WITH THE PATIENT, EACH 15 MINUTES 2007 [facility] INSERTION OF GASTROSTOMY TUBE, PERCUTANEOUS, UNDER FLUOROSCOPIC GUIDANCE INCLUDING CONTRAST INJECTION(S), IMAGE DOCUMENTATION AND REPORT 2007 [facility] MEDICAL NUTRITION THERAPY; RE-ASSESSMENT AND INTERVENTION, INDIVIDUAL, [id number] WITH THE PATIENT, EACH 15 MINUTES 2007 [facility] MEDICAL NUTRITION THERAPY; RE-ASSESSMENT AND INTERVENTION, INDIVIDUAL, [id number] WITH THE PATIENT, EACH 15 MINUTES 2007 [facility] POSTOPERATIVE FOLLOW-UP VISIT, NORMALLY INCLUDED IN THE SURGICAL PACKAGE, INDICATE THAT EVALUATION & MANAGEMENT SERVICE WAS PERFORMED DURING A POSTOPERATIVE PERIOD REASON RELATED ORIGINAL PROCEDURE 2007 [facility] POSTOPERATIVE FOLLOW-UP VISIT, NORMALLY INCLUDED IN THE SURGICAL PACKAGE, INDICATE THAT EVALUATION & MANAGEMENT SERVICE WAS PERFORMED DURING A POSTOPERATIVE PERIOD REASON RELATED ORIGINAL PROCEDURE 2007 [facility] CRANIECTOMY OR CRANIOTOMY FOR EVACUATION OF HEMATOMA, SUPRATENTORIAL; INTRACEREBRAL 2007 [facility] MEDICAL NUTRITION THERAPY; RE-ASSESSMENT AND INTERVENTION, INDIVIDUAL, [id number] WITH THE PATIENT, EACH 15 MINUTES 2007 [facility] SKIN TEST; TUBERCULOSIS, INTRADERMAL 2006 [facility] Social History Combined list of available smoking, tobacco, and other social history 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 Social History Type Response Date Comment Sourc e Tobacco smoking status NHIS VA-TOBACCO FORMER USER 03/18/2024 [facility] History of tobacco use VA-TOBACCO QUIT < 1 YEAR 03/18/2024 [facility] History of tobacco use VA-TOBACCO USER E VERY DAY 03/18/2023 [facility] History of tobacco use VA-VAAES TOBACCO USE CURRENT NRT DECLINE 11/06/[address] [facility] History of tobacco use ORYX ADMIT TOBACC O USE CIGS GR 5D 11/06/[address] [facility] History of tobacco use LIFETIME NON-USER OF TOBACCO 01/17/2011 [facility] History of tobacco use LIFETIME NON-USER OF TOBACCO 03/04/2008 [facility] This section is an empty social history section. DoD Plan of Care List of future care activities from Department of 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 Additional future care activities may be listed in the Assessment and Plan section. Date/Time Care Activity Care Activity Detail Facili ty 03/18/2025 AMBULATORY - MEDICINE AMBULATORY - MEDICI NE [facility]
--- OUTSIDE RECORDS SUMMARY | 2024-12-08 19:09 | XMS_ITS | Continuity of Care Document ---
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 Role Phone Amy Dc Unavailable Unavailable Allergies, Adverse Reactions, Alerts Substance Reaction Status Criticality No Known Allergies Active No Inform ation Medications Medication Instructions Dosage Effective Dates (start - stop) Status Comments amoxicillin 875 mg-potassium clavulanate 125 mg tablet take 1 tablet by oral route every 12 hours 1.00 tablet - Active Procedures Procedure Date OFFICE/OUTPATIENT VISIT, [facility] Ketorolac tromethamine inj Advance Directives Directive Yes / No Effective Date File Name No Information Encounters Encounter Description Practice Location Reason(s) For Visit Diagnoses Date Provider Providers Copied on Encounter OFFICE/OUTPAT IENT VISIT, [facility], [address] [place] [address], [facility], tel:[phone] [place] TOOTH PAIN (chief complaint) Chronic dental infection Dao Reyes. [address] [place] [address], [facility], . 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 STATES HE USED MANY OF THOSE LAST [...] to the area. 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 STATES HE USED MANY OF THOSE LAST [...] Mental Status Date Cognitive Assessment Orientation - [place] ed to time, place, person, situation. Patient Care Teams Name Effective Dates (start - stop) Status Members No Information
--- NOTE | 2024-12-08 19:14 | ED_ITS ---
HPI - Dental/Oral General Chief complaint: Dental/Oral Stated complaint: tooth pain Time Seen by Provider: 12/08/24 19:00 Source: patient Mode of arrival: ambulatory Limitations: no limitations History of Present Illness HPI Narrative: 39-year-old male with extensive dental caries had extraction of teeth 1,2,3 today afternoon. He was scheduled to have tooth 4 but could not be done. The dentist told him that his tooth number 4 was infected . The patient presents with -- ongoing right upper dental pain -- wanting antibiotics MD Complaint: tooth pain and tooth injury Location: Tooth # ( extraction of1,2,3. extensive dental caries) Onset (ago): day(s) Duration: constant Severity: moderate Relieving factors: nothing Exacerbating factors: nothing Context: history of dental caries Related Data Allergies Allergy/AdvReac Type Severity Reaction Status Date / Time No Known Allergies Allergy Verified 12/08/24 19:34 Review of Systems Review of Systems: All systems reviewed & are unremarkable except as noted in HPI and below PMFSH Past Medical History Medical History (Updated 12/08/24 @ 19:27 by Cornell Nixon MD) AVM (arteriovenous malformation) brain Seizures AVM (arteriovenous malformation) History of stroke Exam Narrative: blood pressure 150/88. Const: General: no acute distress Nutritional Appearance: well nourished Orientation/consciousness: patient oriented x3 Limitations: no limitations HENMT: Head: normal to inspection Ears: external ears normal Face/Nose/Sinus: Normal external nose present Face and sinus: normal facial exam Teeth and gingiva: dentition normal ( Extensive dental caries. Postop extraction of 1, 2, 3. ) Throat: posterior oropharynx normal Eyes: Conjunctivae: conjunctivae normal Pupils: Equal, round and reactive pupils present EOM: EOMs intact bilaterally Direct Ophthalmoscopy: no photophobia Neck: Neck: normal visual inspection, no lymphadenopathy and no meningeal signs Chest: Chest palpation & inspection: normal inspection of the chest and abnormal inspection of the chest Resp: Effort & Inspection: normal respiratory effort and labored Auscultation: clear to auscultation bilaterally Cardio: Rate: regular rate Rhythm: regular rhythm GI: Auscultation: normal bowel sounds Other: no tenderness/rigidity /rebound : General: Yes no CVA tenderness Back/Spine/Pelvis: Back: no CVA tenderness Skin: General skin exam: normal color Rashes: no rashes Wounds: no woun ds Neuro: General: patient oriented x3, moves all extremities, no meningeal signs, no focal motor deficits and CN's II-XI intact bilaterally Cranial nerves: Yes Nystagmus not present Speech: normal speech Gait exam (Neuro): Normal gait present Extrem: General: normal to inspection and no clubbing, cyanosis or edema Psych: Mental Status: mental status grossly normal Affect: normal affect Attitude: cooperative Course Course Emergency Course: dental caries dental pain Vital Signs Vital signs: Vital Signs Temperature 36.5 C 12/08/24 18:46 Pulse Rate 82 12/08/24 18:46 Respiratory Rate 20 12/08/24 18:46 Blood Pressure 150/88 H 12/08/24 18:46 Pulse Oximetry 98 12/08/24 18:46 Oxygen Delivery Room Air 12/08/24 18:46 Temperature 36.5 C 12/08/24 18:46 Pulse Rate 82 12/08/24 18:46 Respiratory Rate 20 12/08/24 18:46 Blood Pressure 150/88 H 12/08/24 18:46 Pulse Oximetry 98 12/08/24 18:46 Oxygen Delivery Room Air 12/08/24 18:46 MDM - Dental/Oral MDM Narrative Medical decision making narrative: dental caries dental pain status post dental extraction Differential Diagnosis Differential diagnosis: Likely gingival abscess Discharge Plan Discharge Clinical Impression: Dental caries, Toothache Patient Disposition: Home, Self-Care Condition: Stable Instructions: Antibiotic Form, Toothache (ED) Patient Language: Salvadorean Prescriptions: New clindamycin HCl 300 mg capsule 300 mg PO Q8H Qty: 20 0RF No Action amoxicillin-pot clavulanate 875-125 mg tablet 1 tablet PO BID 10 Days Qty: 20 0RF clindamycin HCl 300 mg capsule 300 mg PO TID 10 Days Qty: 30 0RF ibuprofen 800 mg tablet 800 mg PO TID PRN (Reason: pain) Qty: 30 0RF Follow-up/Referrals: Homar,MARYJANE Iraheta [Primary Care Provider] - Stand Alone Forms: Work/School Release IP
--- OUTSIDE RECORDS SUMMARY | 2024-12-08 19:35 | XMS_ITS | Continuity of Care Document ---
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 Name Role Phone Amy Dc Unavailable Unavailable Allergies, Adverse Reactions, Alerts Substance Reaction Status Criticality No Known Allergies Active No Inform ation Medications Medication Instructions Dosage Effective Dates (start - stop) Status Comments amoxicillin 875 mg-potassium clavulanate 125 mg tablet take 1 tablet by oral route every 12 hours 1.00 tablet - Active Procedures Procedure Date OFFICE/OUTPATIENT VISIT, [facility] Ketorolac tromethamine inj Advance Directives Directive Yes / No Effective Date File Name No Information Encounters Encounter Description Practice Location Reason(s) For Visit Diagnoses Date Provider Providers Copied on Encounter OFFICE/OUTPAT IENT VISIT, [facility], [address] [place] [address], [facility], tel:[phone] [place] TOOTH PAIN (chief complaint) Chronic dental infection Dao Reyes. [address] [place] [address], [facility], . 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 STATES HE USED MANY OF THOSE LAST [...] to the area. His dentist is in [place], [place] and he states he can not [...] AND ACETIMINOPHEN THAT HE BUYS AT THE [email or web address] STATES HE USED MANY OF THOSE LAST [...] Mental Status Date Cognitive Assessment Orientation - [place] ed to time, place, person, situation. Patient Care Teams Name Effective Dates (start - stop) Status Members No Information
--- OUTSIDE RECORDS SUMMARY | 2024-12-08 19:35 | XMS_ITS | Continuity of Care Document ---
Author Name [facility] Organization [facility] Care Team Providers Care Supervisor Rolling Room Name Role Phone [facility] Unavailable Unavailable Problems Combined list of problems 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 It does not include entries that were removed or entered in error. Problem Status Onset Date Problem Type Date of Resolution Comments Source Adjustment disorder with depressed mood (SNOMED CT 21911051) Active Condition [facility] Cerebral aneurysm, nonruptured (ICD-9-CM 437.3) Active Condition [facility] Congenital arteriovenous malformation Active Condition Jan 17, 2011 Entered By: CHIOMA QUAN Comment: 12/2007 surgery in [facility] Diplopia * (ICD-9-CM 368.2) Active Condition [facility] Myopia Active Condition [facility] Pain of joint of knee (SNOMED CT 0393247547) Active Condition [facility] Pneumonia, organism unspecified Active Condition Jan 17, 2011 Entered By: CHIOMA QUAN Comment: August 2010, received pneumovax vaccineMar 08, 2011 Entered By: CHIOMA QUAN Comment: 02/20/11 rul and rml [facility] Sleep disturbances Active Condition [facility] Tinnitus Active Condition [facility] Vitamin D Deficiency (SCT 21083659) Active Condition [facility] Chest Pain * (ICD-9-CM 786.50) Inactive Condition 03/18/2023 [facility] Cyst, ganglion Inactive Condition 03/18/2023 Jan 17, 2011 Entered By: CHIOMA QUAN Comment: right wrist [facility] Encounters for unspecified Administrative Purpose (ICD-9-CM V68.9) Inactive Condition 03/18/2023 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 [facility] Diagnosis: ICD-10-CM Q27.30 Arteriovenous malformation, site unspecified Active Diagnosis [facility] Diagnosis: ICD-10-CM G40.89 Other seizures Active Diagnosis [facility] Allergies, Adverse Reactions, Alerts Combined list of allergies 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 It does not include entries that were removed or entered in error. Substance Category Reaction Severity Reaction type Status Date Reported Comments Source ADHESIVE TAPE Propensity to adverse reaction (finding) Eruption active 1 [facility] OTHER Drug allergy (disorder) Unknown active 8 [facility] Immunizations Combined list of available immunizations from the 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 Immunization Series Date Given Administered By Site Reaction Lot Number CVX Code Drug Joiner Apprentice Status Comments Source PNEUMOCOCCAL POLYSACCHARID E PPV23 2022 KARI,EDIT H R RIGHT DELTO ID [id number] 33 complet ed [facility] TDAP 2022 KARIEDIT H R LEFT DELTO ID [id number] 115 complet ed [facility] INFLUENZA, UNSPECIFIED FORMULATION 2011 88 complet ed [facility] INFLUENZA, UNSPECIFIED FORMULATION 2010 88 complet ed [facility] tuberculin skin test; purified protein derivative solution, intradermal 0 2009 KAREEN ARMENDARIZ [id number] 96 [place] PASTE[place] ([facility]) complet ed tuberculi n skin test; purified protein derivativ e solution, intraderm al DoD tuberculin skin test; purified protein derivative solution, intradermal 1 2009 JAZZ DAVIS [id number] 96 [place] PASTE[place] ([facility]) complet ed tuberculi n skin test; purified protein derivativ e solution, intraderm al DoD tuberculin skin test; purified protein derivative solution, intradermal 1 2009 CIERA FOREMAN [id number] 96 [place] PASTE[place] ([facility]) complet ed tuberculi n skin test; purified protein derivativ e solution, intraderm al DoD tuberculin skin test; purified protein derivative solution, intradermal 1 2009 WILTON SILVA [id number] 96 [place] PASTE[place] ([facility]) complet ed tuberculi n skin test; purified protein derivativ e solution, intraderm al DoD typhoid Vi capsular polysaccharid e vaccine 1 2009 WILTON SILVA [id number] [place] PASTE[place] ([employer]) complet ed typhoid Vi capsular polysacch aride vaccine DoD Novel Influenza-H1N 1-09, live virus for nasal administratio n 1 2009 WILTON SILVA [id number] 125 [employer] (MED) complet ed Novel Influenza -X8C1-94, live virus for nasal administr ation DoD influenza virus vaccine, live, attenuated, for intranasal use 0 2008 UNK 111 Unknown (UNK) comple t ed influenza virus vaccine, live, attenuate d, for intranasa l use DoD influenza virus vaccine, live, attenuated, for intranasal use 1 2008 SERA PRASAD Radha [id number] [employer] (MED) complet ed influenza virus vaccine, live, attenuate d, for intranasa l use DoD tuberculin skin test; purified protein derivative solution, intradermal 1 2007 KAREEN ARMENDARIZ [id number] 96 [place] (PD) complet ed tuberculi n skin test; purified protein derivativ e solution, intraderm al DoD influenza virus vaccine, live, attenuated, for intranasal use 1 2007 KAREEN ARMENDARIZ [id number] 111 [employer] (MED) complet ed influenza virus vaccine, live, attenuate d, for intranasa l use DoD influenza virus vaccine, unspecified formulation 0 2006 UNK 88 Unknown (UNK) comple t ed influenza virus vaccine, unspecifi ed formulati on DoD tuberculin skin test; purified protein derivative solution, intradermal 1 2006 JAZZ DAVIS [id number] 96 [place] (PD) complet ed tuberculi n skin test; purified protein derivativ e solution, intraderm al DoD influenza virus vaccine, live, attenuated, for intranasal use 1 2006 SINHAYVONNE VickShalom uRbio [id number] 111 [employer] (MED) complet ed influenza virus vaccine, live, attenuate d, for intranasa l use DoD hepatitis B vaccine, adult dosage 3 2006 UNK 43 Unknown (UNK) comple t ed hepatitis B vaccine, adult dosage DoD hepatitis A and hepatitis B vaccine 3 2006 ROQUE WHITNEY [id number] [facility] (SKB) complet ed hepatitis A and hepatitis [...] Mar 18, 2024 10:55 AM Reporting Lab: [facility] [address] [facility] [address] Performing Lab: [facility] [address] [facility] [address] [facility] CBC ERYTHROCYTE S [#/VOLUME] IN BLOOD BY AUTOMATED COUNT 4.62 10*6/u L 4.10 - 5.70 03/18 Specimen Type: BLOOD No comment entered. Ordering Provider: Nicanor KENNEDY Report Released Date/Time: Mar 18, 2024 10:55 AM Reporting Lab: [facility] [address] [place] [phone] Performing Lab: [address] [address] [facility] CBC HEMOGLOBIN [MASS/VOLUM E] IN BLOOD 14.3 g/dL 13.1 - 16.8 03/18 Specimen Type: BLOOD No comment entered. Ordering Provider: Nicanor KENNEDY Report Released Date/Time: Mar 18, 2024 10:55 AM Reporting Lab: [address] [address] Performing Lab: [place] [id number] [place] [address] [facility] CBC HEMATOCRIT [VOLUME FRACTION] OF BLOOD 42.9 38.2 - 48.4 03/18 Specimen Type: BLOOD No comment entered. Ordering Provider: Nicanor KENNEDY Report Released Date/Time: Mar 18, 2024 10:55 AM Reporting Lab: [address] [address] Performing Lab: [address] [address] [facility] CBC MCV [ENTITIC VOLUME] BY AUTOMATED COUNT 92.9 fL 80.0 - 100.0 03/18 Specimen Type: BLOOD No comment entered. Ordering Provider: Nicanor KENNEDY Report Released Date/Time: Mar 18, 2024 10:55 AM Reporting Lab: [address] [address] Performing Lab: [address] [address] [facility] CBC MCH [ENTITIC MASS] BY AUTOMATED COUNT 31.0 pg 27.0 - 34.0 03/18 Specimen Type: BLOOD No comment entered. Ordering Provider: Nicanor KENNEDY Report Released Date/Time: Mar 18, 2024 10:55 AM Reporting Lab: [address] [address] Performing Lab: [address] [place] [address] [facility] CBC MCHC [MASS/VOLUM E] BY AUTOMATED COUNT 33.3 g/dL 33.0 - 36.0 03/18 Specimen Type: BLOOD No comment entered. Ordering Provider: Nicanor KENNEDY Report Released Date/Time: Mar 18, 2024 10:55 AM Reporting Lab: [address] [address] Performing Lab: [address] [address] [facility] CBC PLATELETS [#/VOLUME] IN BLOOD BY AUTOMATED COUNT 237 10*3/u L 150 - 400 03/18 Specimen Type: BLOOD No comment entered. Ordering Provider: Nicanor KENNEDY Report Released Date/Time: Mar 18, 2024 10:55 AM Reporting Lab: [address] [address] Performing Lab: [address] [address] [facility] CBC PLATELET MEAN VOLUME [ENTITIC VOLUME] IN BLOOD BY AUTOMATED COUNT 10.6 fL 7.5 - 11.2 03/18 Specimen Type: BLOOD No comment entered. Ordering Provider: Nicanor KENNEDY Report Released Date/Time: Mar 18, 2024 10:55 AM Reporting Lab: [address] [address] Performing Lab: [address] [address] [facility] CBC ERYTHROCYTE DISTRIBUTIO N WIDTH [RATIO] BY AUTOMATED COUNT 12.2 11.8 - 15.1 03/18 Specimen Type: BLOOD No comment entered. Ordering Provider: Nicanor KENNEDY Report Released Date/Time: Mar 18, 2024 10:55 AM Reporting Lab: [address] [address] Performing Lab: [address] [address] [facility] CBC LYMPHOCYTES /100 LEUKOCYTES IN BLOOD BY AUTOMATED COUNT 30 03/18 Specimen Type: BLOOD No comment entered. Ordering Provider: Nicanor KENNEDY Report Released Date/Time: Mar 18, 2024 10:55 AM Reporting Lab: [facility] [address] [facility] [address] Performing Lab: [facility] [address] [place] [phone] [facility] CBC MONOCYTES/1 00 LEUKOCYTES IN BLOOD BY AUTOMATED COUNT 8 03/18 Specimen Type: BLOOD No comment entered. Ordering Provider: Nicanor KENNEDY Report Released Date/Time: Mar 18, 2024 10:55 AM Reporting Lab: [facility] [address] [facility] [address] Performing Lab: [facility] [address] [place] [phone] [facility] CBC NEUTROPHILS /100 LEUKOCYTES IN BLOOD BY AUTOMATED COUNT 58 03/18 Specimen Type: BLOOD No comment entered. Ordering Provider: Nicanor KENNEDY Report Released Date/Time: Mar 18, 2024 10:55 AM Reporting Lab: [facility] [address] [facility] [address] Performing Lab: [facility] [address] [place] [phone] [facility] CBC EOSINOPHILS /100 LEUKOCYTES IN BLOOD BY AUTOMATED COUNT 3 03/18 Specimen Type: BLOOD No comment entered. Ordering Provider: Nicanor KENNEDY Report Released Date/Time: Mar 18, 2024 10:55 AM Reporting Lab: [facility] [address] [facility] [address] Performing Lab: [facility] [address] [place] [phone] [facility] CBC BASOPHILS/1 00 LEUKOCYTES IN BLOOD BY AUTOMATED COUNT 1 03/18 Specimen Type: BLOOD No comment entered. Ordering Provider: Nicanor KENNEDY Report Released Date/Time: Mar 18, 2024 10:55 AM Reporting Lab: [facility] [address] [place] [phone] Performing Lab: [facility] [address] [place] [phone] [facility] CBC LYMPHOCYTES [#/VOLUME] IN BLOOD BY AUTOMATED COUNT 1.42 10*3/u L 0.77 - 4.50 03/18 Specimen Type: BLOOD No comment entered. Ordering Provider: Nicanor KENNEDY Report Released Date/Time: Mar 18, 2024 10:55 AM Reporting Lab: [address] [address] Performing Lab: [address] [phone] [facility] CBC MONOCYTES [#/VOLUME] IN BLOOD BY AUTOMATED COUNT 0.38 10*3/u L 0.19 - 0.80 03/18 Specimen Type: BLOOD No comment entered. Ordering Provider: Nicanor KENNEDY Report Released Date/Time: Mar 18, 2024 10:55 AM Reporting Lab: [address] [address] Performing Lab: [address] [phone] [place] [address] [facility] CBC NEUTROPHILS [#/VOLUME] IN BLOOD BY AUTOMATED COUNT 2.72 10*3/u L 2.10 - 8.00 03/18 Specimen Type: BLOOD No comment entered. Ordering Provider: Nicanor KENNEDY Report Released Date/Time: Mar 18, 2024 10:55 AM Reporting Lab: [address] [address] Performing Lab: [address] [address] [facility] CBC EOSINOPHILS [#/VOLUME] IN BLOOD BY AUTOMATED COUNT 0.13 10*3/u L 0.00 - 0.60 03/18 Specimen Type: BLOOD No comment entered. Ordering Provider: Nicanor KENNEDY Report Released Date/Time: Mar 18, 2024 10:55 AM Reporting Lab: [address] [address] Performing Lab: [address] [phone] [place] [address] [facility] CBC BASOPHILS [#/VOLUME] IN BLOOD BY AUTOMATED COUNT 0.06 10*3/u L 0.00 - 0.20 03/18 Specimen Type: BLOOD No comment entered. Ordering Provider: Nicanor KENNEDY Report Released Date/Time: Mar 18, 2024 10:55 AM Reporting Lab: [place] [phone] Performing Lab: [place] [id number] [facility] COMPREHENS GUILLERMO METABOLIC PANEL CREATININE [MASS/VOLUM E] IN SERUM OR PLASMA 1.14 mg/dL 0.7 - 1.3 03/18 Specimen Type: PLASMA Comment: No hemolysis noted. Ordering Provider: Nicanor KENNEDY Report Released Date/Time: Mar 18, 2024 10:55 AM Reporting Lab: [place] [phone] Performing Lab: [address] [phone] [place] [address] [facility] COMPREHENS GUILLERMO METABOLIC PANEL UREA NITROGEN [MASS/VOLUM E] IN SERUM OR PLASMA 16.6 mg/dL 9.0 - 25.0 03/18 Specimen Type: PLASMA Comment: No hemolysis noted. Ordering Provider: Nicanor KENNEDY Report Released Date/Time: Mar 18, 2024 10:55 AM Reporting Lab: [address] [address] Performing Lab: [address] [address] [facility] COMPREHENS GUILLERMO METABOLIC PANEL GLUCOSE [MASS/VOLUM E] IN SERUM OR PLASMA 108 mg/dL 72 - 99 03/18 H Specimen Type: PLASMA Comment: No hemolysis noted. Ordering Provider: Nicanor KENNEDY Report Released Date/Time: Mar 18, 2024 10:55 AM Reporting Lab: [facility] [address] [place] [phone] Performing Lab: [facility] [address] [place] [phone] [facility] COMPREHENS GUILLERMO METABOLIC PANEL SODIUM [MOLES/VOLU ME] IN SERUM OR PLASMA 139 meq/L 136 - 145 03/18 Specimen Type: PLASMA Comment: No hemolysis noted. Ordering Provider: Nicanor KENNEDY Report Released Date/Time: Mar 18, 2024 10:55 AM Reporting Lab: [address] [address] Performing Lab: [address] [address] [facility] COMPREHENS GUILLERMO METABOLIC PANEL POTASSIUM [MOLES/VOLU ME] IN SERUM OR PLASMA 4.9 meq/L 3.5 - 5 03/18 Specimen Type: PLASMA Comment: No hemolysis noted. Ordering Provider: Nicanor KENNEDY Report Released Date/Time: Mar 18, 2024 10:55 AM Reporting Lab: [facility] [address] [place] [phone] Performing Lab: [facility] [address] [place] [phone] [facility] COMPREHENS GUILLERMO METABOLIC PANEL CHLORIDE [MOLES/VOLU ME] IN SERUM OR PLASMA 106 meq/L 98 - 107 03/18 Specimen Type: PLASMA Comment: No hemolysis noted. Ordering Provider: Nicanor KENNEDY Report Released Date/Time: Mar 18, 2024 10:55 AM Reporting Lab: [facility] [address] [place] [phone] Performing Lab: [facility] [address] [place] [phone] [facility] COMPREHENS GUILLERMO METABOLIC PANEL CARBON DIOXIDE, TOTAL [MOLES/VOLU ME] IN SERUM OR PLASMA 25 meq/L 22 - 31 03/18 Specimen Type: PLASMA Comment: No hemolysis noted. Ordering Provider: Nicanor KENNEDY Report Released Date/Time: Mar 18, 2024 10:55 AM Reporting Lab: [facility] [address] [place], [place] [phone] Performing Lab: [facility] [address] [place] [phone] [place] [address] [facility] COMPREHENS GUILLERMO METABOLIC PANEL CALCIUM [MASS/VOLUM E] IN SERUM OR PLASMA 9.3 mg/dL 8.4 - 10.4 03/18 Specimen Type: PLASMA Comment: No hemolysis noted. Ordering Provider: Nicanor KENNEDY Report Released Date/Time: Mar 18, 2024 10:55 AM Reporting Lab: [place] [address] Performing Lab: [place] [phone] [facility] COMPREHENS GUILLERMO METABOLIC PANEL PROTEIN [MASS/VOLUM E] IN SERUM OR PLASMA 6.9 g/dL 6 - 8.6 03/18 Specimen Type: PLASMA Comment: No hemolysis noted. Ordering Provider: Nicanor KENNEDY Report Released Date/Time: Mar 18, 2024 10:55 AM Reporting Lab: [facility] [address] [place], [place] [phone] Performing Lab: [address] [phone] [place] [address] [facility] COMPREHENS GUILLERMO METABOLIC PANEL ALBUMIN [MASS/VOLUM E] IN SERUM OR PLASMA 4.3 g/dL 3.4 - 5 03/18 Specimen Type: PLASMA Comment: No hemolysis noted. Ordering Provider: Nicanor KENNEDY Report Released Date/Time: Mar 18, 2024 10:55 AM Reporting Lab: [facility] [address] [place] [address] Performing Lab: [address] [phone] [place] [address] [facility] COMPREHENS GUILLERMO METABOLIC PANEL BILIRUBIN.T OTAL [MASS/VOLUM E] IN SERUM OR PLASMA 0.5 mg/dL 0.2 - 1.2 03/18 Specimen Type: PLASMA Comment: No hemolysis noted. Ordering Provider: Nicanor KENNEDY Report Released Date/Time: Mar 18, 2024 10:55 AM Reporting Lab: [facility] [address] [place] [phone] Performing Lab: [facility] [address] [place] [phone] [facility] COMPREHENS GUILLERMO METABOLIC PANEL ALKALINE PHOSPHATASE [ENZYMATIC ACTIVITY/VO LUME] IN SERUM OR PLASMA 73 U/L 40 - 150 03/18 Specimen Type: PLASMA Comment: No hemolysis noted. Ordering Provider: Nicanor KENNEDY Report Released Date/Time: Mar 18, 2024 10:55 AM Reporting Lab: [facility] [address] [place] [phone] Performing Lab: [address] [address] [facility] COMPREHENS GUILLERMO METABOLIC PANEL ASPARTATE AMINOTRANSF ERASE [ENZYMATIC ACTIVITY/VO LUME] IN SERUM OR PLASMA 28 U/L 5 - 34 03/18 Specimen Type: PLASMA Comment: No hemolysis noted. Ordering Provider: Nicanor KENNEDY Report Released Date/Time: Mar 18, 2024 10:55 AM Reporting Lab: [facility] [address] [place] [phone] Performing Lab: [facility] [address] [place] [phone] [facility] COMPREHENS GUILLERMO METABOLIC PANEL ALANINE AMINOTRANSF ERASE [ENZYMATIC ACTIVITY/VO LUME] IN SERUM OR PLASMA 24 U/L 8 - 40 03/18 Specimen Type: PLASMA Comment: No hemolysis noted. Ordering Provider: Nicanor KENNEDY Report Released Date/Time: Mar 18, 2024 10:55 AM Reporting Lab: [facility] [address] [place] [phone] Performing Lab: [facility] [address] [place] [phone] [facility] COMPREHENS GUILLERMO METABOLIC PANEL GLOMERULAR FILTRATION RATE/1.73 SQ M.PREDICTED [VOLUME RATE/AREA] IN SERUM, PLASMA OR BLOOD BY CREATININE- BASED FORMULA (CKD-EPI 2020) 85.5 60 03/18 Specimen Type: PLASMA Comment: No hemolysis noted. Ordering Provider: Nicanor KENNEDY Report Released Date/Time: Mar 18, 2024 10:55 AM Reporting Lab: [address] [address] Performing Lab: [address] [address] [facility] HGA1C HEMOGLOBIN A1C/HEMOGLO BIN.TOTAL IN BLOOD 5.5 4.0 - 6.0 03/18 Specimen Type: BLOOD No comment entered. Ordering Provider: Nicanor KENNEDY Report Released Date/Time: Mar 18, 2024 10:55 AM Reporting Lab: [address] [address] Performing Lab: [address] [address] [facility] LIPID PANEL (STL) CHOLESTEROL [MASS/VOLUM E] IN SERUM OR PLASMA 209 mg/dL 0 - 200 03/18 H Specimen Type: PLASMA Comment: No hemolysis noted. Ordering Provider: Nicanor KENNEDY Report Released Date/Time: Mar 18, 2024 10:55 AM Reporting Lab: [address] [phone] Performing Lab: [address] [address] [facility] LIPID PANEL (STL) TRIGLYCERID E [MASS/VOLUM E] IN SERUM OR PLASMA 247 mg/dL 0 - 150 03/18 H Specimen Type: PLASMA Comment: No hemolysis noted. Ordering Provider: Nicanor KENNEDY Report Released Date/Time: Mar 18, 2024 10:55 AM Reporting Lab: [address] [address] Performing Lab: [address] [address] [facility] [place] [facility] LIPID PANEL (STL) CHOLESTEROL IN LDL [MASS/VOLUM E] IN SERUM OR PLASMA BY CALCULATION 106 mg/dL 03/18 Specimen Type: PLASMA Comment: No hemolysis noted. Ordering Provider: Nicanor KENNEDY Report Released Date/Time: Mar 18, 2024 10:55 AM Reporting Lab: [place] [address] Performing Lab: [address] [facility] LIPID PANEL (STL) CHOLESTEROL IN HDL [MASS/VOLUM E] IN SERUM OR PLASMA 54 mg/dL 40 03/18 Specimen Type: PLASMA Comment: No hemolysis noted. Ordering Provider: Nicanor KENNEDY Report Released Date/Time: Mar 18, 2024 10:55 AM Reporting Lab: [place] [address] Performing Lab: [address] [facility] TSH W/ REFLEX FT4 (STL) THYROTROPIN [UNITS/VOLU ME] IN SERUM OR PLASMA 0.605 u[IU]/ mL 0.47 - 5 03/18 Specimen Type: PLASMA No comment entered. Ordering Provider: Nicanor KENNEDY Report Released Date/Time: Mar 18, 2024 10:55 AM Reporting Lab: [place] [address] Performing Lab: [address] [facility] VITAMIN D, 25-HYDROXY 25-HYDROXYV ITAMIN D3 [MASS/VOLUM E] IN SERUM OR PLASMA 35.9 ng/mL 30 - 96 03/18 Specimen Type: SERUM No comment entered. Ordering Provider: Nicanor KENNEDY Report Released Date/Time: Mar 18, 2024 10:55 AM Reporting Lab: [place] [address] Performing Lab: [address] [address] [facility] HGA1C HEMOGLOBIN A1C/HEMOGLO BIN.TOTAL IN BLOOD 5.7 4.0 - 6.0 03/18 Specimen Type: BLOOD No comment entered. Ordering Provider: Nicanor KENNEDY Report Released Date/Time: Mar 18, 2023 09:16 AM Reporting Lab: [address] [address] Performing Lab: [address] [address] [facility] LIPID PANEL (STL) CHOLESTEROL [MASS/VOLUM E] IN SERUM OR PLASMA 219 mg/dL 0 - 200 03/18 H Specimen Type: PLASMA No comment entered. Ordering Provider: Nicanor KENNEDY Report Released Date/Time: Mar 18, 2023 09:16 AM Reporting Lab: [address] [address] Performing Lab: [address] [address] [facility] LIPID PANEL (STL) TRIGLYCERID E [MASS/VOLUM E] IN SERUM OR PLASMA 129 mg/dL 0 - 150 03/18 Specimen Type: PLASMA No comment entered. Ordering Provider: Nicanor KENNEDY Report Released Date/Time: Mar 18, 2023 09:16 AM Reporting Lab: [address] [address] Performing Lab: [address] [address] [facility] LIPID PANEL (STL) CHOLESTEROL IN LDL [MASS/VOLUM E] IN SERUM OR PLASMA BY CALCULATION 144 mg/dL 03/18 Specimen Type: PLASMA No comment entered. Ordering Provider: Nicanor KENNEDY Report Released Date/Time: Mar 18, 2023 09:16 AM Reporting Lab: [address] [address] Performing Lab: [address] [address] [facility] LIPID PANEL (STL) CHOLESTEROL IN HDL [MASS/VOLUM E] IN SERUM OR PLASMA 49 mg/dL 03/18 Specimen Type: PLASMA No comment entered. Ordering Provider: Nicanor KENNEDY Report Released Date/Time: Mar 18, 2023 09:16 AM Reporting Lab: [address] [address] Performing Lab: [address] [phone] [place] [address] CBOC TSH (MA-PB-STL ) THYROTROPIN [UNITS/VOLU ME] IN SERUM OR PLASMA 0.921 u[IU]/ mL 0.47 - 5 03/18 Specimen Type: SERUM No comment entered. Ordering Provider: Nicanor KENNEDY Report Released Date/Time: Mar 18, 2023 09:16 AM Reporting Lab: [place] [phone] Performing Lab: [place] [id number] [place] [address] CBOC COMPREHENS GUILLERMO METABOLIC PANEL CREATININE [MASS/VOLUM E] IN SERUM OR PLASMA 1.10 mg/dL 0.7 - 1.3 03/10 Specimen Type: PLASMA Comment: K result may show a positive bias due to hemolysis. Specimen slightly hemolyzed. Ordering Provider: NARINDER CARSON Report Released Date/Time: Mar 10, 2023 01:44 PM Reporting Lab: [address] [address] Performing Lab: [place] [address] [phone] COMPREHENS GUILLERMO METABOLIC PANEL UREA NITROGEN [MASS/VOLUM E] IN SERUM OR PLASMA 8 mg/dL 9 - 25 03/10 L Specimen Type: PLASMA Comment: K result may show a positive bias due to hemolysis. Specimen slightly hemolyzed. Ordering Provider: NARINDER CARSON Report Released Date/Time: Mar 10, 2023 01:44 PM Reporting Lab: [facility] [address] [facility] [address] Performing Lab: [facility] [address] [address] [facility] COMPREHENS GUILLERMO METABOLIC PANEL GLUCOSE [MASS/VOLUM E] IN SERUM OR PLASMA 84 mg/dL 72 - 99 03/10 Specimen Type: PLASMA Comment: K result may show a positive bias due to hemolysis. Specimen slightly hemolyzed. Ordering Provider: NARINDER CARSON Report Released Date/Time: Mar 10, 2023 01:44 PM Reporting Lab: [facility] [address] [facility] [address] Performing Lab: [facility] [address] [address] [facility] COMPREHENS GUILLERMO METABOLIC PANEL SODIUM [MOLES/VOLU ME] IN SERUM OR PLASMA 142 meq/L 136 - 145 03/10 Specimen Type: PLASMA Comment: K result may show a positive bias due to hemolysis. Specimen slightly hemolyzed. Ordering Provider: NARINDER CARSON Report Released Date/Time: Mar 10, 2023 01:44 PM Reporting Lab: [facility] [address] [facility] [address] Performing Lab: [facility] [address] [address] [facility] COMPREHENS GUILLERMO METABOLIC PANEL POTASSIUM [MOLES/VOLU ME] IN SERUM OR PLASMA 4.4 meq/L 3.5 - 5 03/10 Specimen Type: PLASMA Comment: K result may show a positive bias due to hemolysis. Specimen slightly hemolyzed. Ordering Provider: NARINDER CARSON Report Released Date/Time: Mar 10, 2023 01:44 PM Reporting Lab: [facility] [address] [facility] [address] Performing Lab: [facility] [address] [facility] [address] [facility] COMPREHENS GUILLERMO METABOLIC PANEL CHLORIDE [MOLES/VOLU ME] IN SERUM OR PLASMA 107 meq/L 98 - 107 03/10 Specimen Type: PLASMA Comment: K result may show a positive bias due to hemolysis. Specimen slightly hemolyzed. Ordering Provider: NARINDER CARSON Report Released Date/Time: Mar 10, 2023 01:44 PM Reporting Lab: [facility] [address] [facility] [address] Performing Lab: [facility] [address] [facility] [address] [facility] COMPREHENS GUILLERMO METABOLIC PANEL CARBON DIOXIDE, TOTAL [MOLES/VOLU ME] IN SERUM OR PLASMA 25 meq/L 22 - 31 03/10 Specimen Type: PLASMA Comment: K result may show a positive bias due to hemolysis. Specimen slightly hemolyzed. Ordering Provider: NARINDER CARSON Report Released Date/Time: Mar 10, 2023 01:44 PM Reporting Lab: [place] [address] [facility] [address] Performing Lab: [facility] [address] [facility] [address] [facility] COMPREHENS GUILLERMO METABOLIC PANEL CALCIUM [MASS/VOLUM E] IN SERUM OR PLASMA 9.1 mg/dL 8.4 - 10.4 03/10 Specimen Type: PLASMA Comment: K result may show a positive bias due to hemolysis. Specimen slightly hemolyzed. Ordering Provider: NARINDER CARSON Report Released Date/Time: Mar 10, 2023 01:44 PM Reporting Lab: [facility] [address] [facility] [address] Performing Lab: [facility] [address] [facility] [address] [facility] COMPREHENS GUILLERMO METABOLIC PANEL PROTEIN [MASS/VOLUM E] IN SERUM OR PLASMA 6.9 g/dL 6 - 8.6 03/10 Specimen Type: PLASMA Comment: K result may show a positive bias due to hemolysis. Specimen slightly hemolyzed. Ordering Provider: NARINDER CARSON Report Released Date/Time: Mar 10, 2023 01:44 PM Reporting Lab: [facility] [address] [facility] [address] Performing Lab: [facility] [address] [facility] [address] [facility] COMPREHENS GUILLERMO METABOLIC PANEL ALBUMIN [MASS/VOLUM E] IN SERUM OR PLASMA 4.2 g/dL 3.4 - 5 03/10 Specimen Type: PLASMA Comment: K result may show a positive bias due to hemolysis. Specimen slightly hemolyzed. Ordering Provider: NARINDER CARSON Report Released Date/Time: Mar 10, 2023 01:44 PM Reporting Lab: [facility] [address] [facility] [address] Performing Lab: [place] [address] [facility] [address] [facility] COMPREHENS GUILLERMO METABOLIC PANEL BILIRUBIN.T OTAL [MASS/VOLUM E] IN SERUM OR PLASMA 0.5 mg/dL 0.2 - 1.2 03/10 Specimen Type: PLASMA Comment: K result may show a positive bias due to hemolysis. Specimen slightly hemolyzed. Ordering Provider: NARINDER CARSON Report Released Date/Time: Mar 10, 2023 01:44 PM Reporting Lab: [place] [address] [address] Performing Lab: [facility] [address] [facility] [address] [facility] COMPREHENS GUILLERMO METABOLIC PANEL ALKALINE PHOSPHATASE [ENZYMATIC ACTIVITY/VO LUME] IN SERUM OR PLASMA 83 U/L 40 - 150 03/10 Specimen Type: PLASMA Comment: K result may show a positive bias due to hemolysis. Specimen slightly hemolyzed. Ordering Provider: NARINDER CARSON Report Released Date/Time: Mar 10, 2023 01:44 PM Reporting Lab: [facility] [address] [facility] [address] Performing Lab: [facility] [address] [address] [facility] COMPREHENS GUILLERMO METABOLIC PANEL ASPARTATE AMINOTRANSF ERASE [ENZYMATIC ACTIVITY/VO LUME] IN SERUM OR PLASMA 31 U/L 5 - 34 03/10 Specimen Type: PLASMA Comment: K result may show a positive bias due to hemolysis. Specimen slightly hemolyzed. Ordering Provider: NARINDER CARSON Report Released Date/Time: Mar 10, 2023 01:44 PM Reporting Lab: [facility] [address] [address] Performing Lab: [facility] [address] [phone] [place] [address] COMPREHENS GUILLERMO METABOLIC PANEL ALANINE AMINOTRANSF ERASE [ENZYMATIC ACTIVITY/VO LUME] IN SERUM OR PLASMA 33 U/L 8 - 40 03/10 Specimen Type: PLASMA Comment: K result may show a positive bias due to hemolysis. Specimen slightly hemolyzed. Ordering Provider: NARINDER CARSON Report Released Date/Time: Mar 10, 2023 01:44 PM Reporting Lab: [facility] [address] [address] Performing Lab: [facility] [address] [phone] [place] [address] COMPREHENS GUILLERMO METABOLIC PANEL GLOMERULAR FILTRATION RATE/1.73 SQ M.PREDICTED [VOLUME RATE/AREA] IN SERUM, PLASMA OR BLOOD BY CREATININE- BASED FORMULA (CKD-EPI 2020) 89.8 03/10 Specimen Type: PLASMA Comment: K result may show a positive bias due to hemolysis. Specimen slightly hemolyzed. Ordering Provider: NARINDER CARSON Report Released Date/Time: Mar 10, 2023 01:44 PM Reporting Lab: [facility] [address] [facility] [address] Performing Lab: [facility] [address] [address] [facility] Vital Signs Combined list of inpatient [...] ADM Date DC Date Status Disposition Source [facility]( art Team 1007) OUTPATIENT [id number] HARVEY BAPTISTE 07/08 Released with Work/Duty Limitations [facility]( Smart Team 1007) [facility]( art Team 1007) OUTPATIENT [id number] lft knee pain MIKE FORD 07/22 Released with Work/Duty Limitations [facility]( Smart [facility] 1007) [facility] Sick Call [facility] 237) OUTPATIENT [id number] L knee BEN BARNETT 08/26 Released with Work/Duty Limitations [facility] [place]( Militar y Sick Call [facility] 237) [facility] [place](Ar litary Sick Call [facility] 237) OUTPATIENT [id number] left knee AARTI STOVER 09/15 Released w/o Limitations [facility] [place](Ar litary Sick Call [place] [address]) OUTPATIENT [id number] pt c/o N/V. GUSTAVO SAMAYOA 09/16 Sick at Home/Quarter s [facility] 237) [facility](Ar litary Sick Call [facility] 237) OUTPATIENT [id number] f/u streap throat PRAMOD ARAUJO 10/03 Released w/o Limitations [facility] [place]( Militar y Sick Call [facility] 237) [facility](Ar litary Sick Call [place] [address]) OUTPATIENT [id number] pt c/o left knee pain since bootcam p. AARTI STOVER 10/10 Released with Work/Duty Limitations [facility] [place] [address]) [facility](Ar litary Sick Call [place] [address]) OUTPATIENT [id number] knee f/u AARTI STOVER 10/20 Released with Work/Duty Limitations [facility] [place] [place] [address]) [facility](Ar litary Sick Call [place] [address]) OUTPATIENT [id number] eval for ffd GUSTAVO SAMAYOA 10/24 Released with Work/Duty Limitations [facility] [place] 237) [facility](Ar litary Sick Call [place] [address]) OUTPATIENT [id number] sore throat AARTI STOVER 10/29 Sick at Home/Quarter s [facility] [place] 237) [facility](Ar litary Sick Call [place] [address]) OUTPATIENT [id number] f/u strep AARTI STOVER 10/30 Released w/o Limitations [facility] 237) [facility](Ar litary Sick Call [place] [address]) OUTPATIENT [id number] f/u L knee AARTI STOVER 11/18 Released w/o Limitations [facility]( Militar y Sick Call [facility] 237) [facility](Ph ysical Therapy/2 37) OUTPATIENT [id number] BRET VILLA 11/21 Released with Work/Duty Limitations [facility]( Physica l Therapy /237) [facility] [place] OUTPATIENT [id number] PHYSICA L GUSTAVO VALLE 03/19 Released w/o Limitations [facility] [place]( [facility]) [facility] [place]) OUTPATIENT [id number] RITCHIE JULES 03/19 Released w/o Limitations [facility] [place] [place] OUTPATIENT [id number] KOMAL SYED 03/19 Released w/o Limitations [facility] [place]( [facility]) [facility] [place]) OUTPATIENT [id number] SUB PHYS TAMIA DRUMMOND 03/31 Released w/o Limitations [facility] [place] [place](Gr oton Immunizat ion) OUTPATIENT [id number] Immuniz ations SAM PIRES E 04/08 Released w/o Limitations [facility] [place]( [place] [facility]) [facility] [place]([facility]) OUTPATIENT [id number] SUB DUTY PE SIMON EDMONDSON 05/01 Released with Work/Duty Limitations [facility] [place] [place]([facility]) OUTPATIENT [id number] mental health clearan SIMON Rosario 07/14 Released with Work/Duty Limitations [facility] [place] [place]([facility]) OUTPATIENT [id number] R Hand injury LIZETH JENKINS 07/17 Released with Work/Duty Limitations [facility] [place]( [facility]) [facility]Immun[facility]) OUTPATIENT [id number] ppd/flu mist PASQUALE PLASCENCIA 08/28 Released w/o Limitations [facility](Imm unizati ons [facility] ) [facility](Immuniz ations [facility]) OUTPATIENT [id number] ppd read JAZZ DAVIS 08/31 Released w/o Limitations [facility](Imm unizati ons [facility] ) [facility] ER, DIRECT TO [facility] [id number] ANA HANLEY Nicanor 01/15 RETURNED TO DUTY [facility](Nutriti on NMCP) INPATIENT [id number] CHIDI Sterling 01/19 Inpatient- Still a Patient [facility](Nut rition NMCP) [facility](Nutriti on NMCP) INPATIENT [id number] TF f/u CHIDI ROBERT 01/24 Inpatient- Still a Patient [facility](Nut rition NMCP) [facility](Infecti ous Disease NMCP) INPATIENT [id number] TETO GARCÍA 01/26 Inpatient- Still a Patient [facility](Inf ectious Disease NMCP) [facility](Nutriti on NMCP) INPATIENT [id number] TF f/u CHIDI ROBERT 01/27 Inpatient- Still a Patient [facility](Nut rition NMCP) [facility](Infecti ous Disease NMCP) INPATIENT [id number] ELIEL TANG 01/27 Inpatient- Still a Patient [facility](Inf ectious Disease NMCP) [facility](Cardiol ogy NMCP) INPATIENT [id number] LUZMARIA Gaming 01/28 Inpatient- Still a Patient [facility](Car diology NMCP) [facility](Social Work NMCP) INPATIENT [id number] Psycho- social assessm ent HECTOR DODGE 02/03 Inpatient- Still a Patient [facility](Soc ial Work NMCP) [facility](Speech Pathology NMCP) INPATIENT [id number] Evaluat e for Ki Reilly Angela smith Valve JENNIFERALLISONShalom Hernandez 02/07 Inpatient- Still a Patient [facility](Spe ech Patholo gy NMCP) [facility](Speech Pathology NMCP) INPATIENT [id number] AVM JENNIFERALLISONA H 02/08 Inpatient- Still a Patient [facility](Spe ech Patholo gy NMCP) [facility] [place](Speech Pathology NMCP) INPATIENT [id number] JENNIFER ODALIS H 02/09 Inpatient- Still a Patient [facility](Spe ech Patholo gy NMCP) [facility] [place] [facility](Speech Pathology NMCP) INPATIENT [id number] JENNIFERALLISONA H 02/10 Inpatient- Still a Patient [facility](Spe ech Patholo gy NMCP) [facility] [place] [facility](Occ Therapy NMCP[id number] [facility] 02[facility]10 Inpatient- Still a Patient [facility](Occ Therapy NMCP) [facility](Occ Therapy NM[facility]) INPATIENT [id number] [facility] 02/14 [facility]- [facility] NM[facility]) [facility] [id number] [facility]- Still a Patient [facility](Occ Therapy NMCP) [facility](Nutriti on NMCP) INPATIENT [id number] GALAYOLANDA A 02/15 Inpatient- Still a Patient [facility](Nut rition NMCP) [facility] [place] [facility](Occ Therapy NMCP) INPATIENT [id number] [facility] 02/16 Inpatient- Still a Patient [facility](Occ Therapy NM[facility]) [facility] [place] [facility](Speech Pathology NMCP) INPATIENT [id number] Re assess Swallow functio n ODALIS RODRIGUEZ H 02/16 Inpatient- Still a Patient [facility](Spe ech Patholo gy NMCP) [facility](Occ Therapy NMCP) INPATIENT [id number] inp JAZZ Moe 02/16 Inpatient- Still a Patient [facility](Occ Therapy NMCP) [facility](Speech Pathology NMCP[facility] INPATIENT [id number] ODALIS RODRIGUEZ H 02/16 Inpatient- Still a Patient [facility](Spe ech Patholo gy NMCP) [facility] [place] [facility](Speech Pathology NMCP) INPATIENT [id number] Dysphag ia tx ODALIS RODRIGUEZ H 02/17 Inpatient- [facility](Spe ech Patholo gy NMCP) [facility] [place] [facility](Case Managemen t [facility] [place] [facility]) OUTPATIENT [id number] CASE MANAGEM ENT LONG, IVANNA S 03/08 Released w/o Limitations [facility](Dajuan e Managem ent [facility] [place] [facility](Case Managemen t [facility] [place] OUTPATIENT [id number] CASE MANAGEM ENT LONG, IVANNA S 03/09 Released w/o Limitations [facility] [place](Dajuan e Managem ent [facility]) [facility] [place](Case Mgmt Active Duty (AD)) OUTPATIENT [id number] CASE MANAGEM ENT LONG, IVANNA S 03/10 Released w/o Limitations [facility](Dajuan e Mgmt Active Duty (AD)) [facility] [place] [facility](Case Mgmt Active Duty (AD)) OUTPATIENT [id number] LONG, IVANNA S 03/14 Released w/o Limitations [facility](Dajuan e Mgmt Active Duty (AD)) [facility] [place] [facility](Case Mgmt Active Duty (AD)) OUTPATIENT [id number] CASE MANAGEM ENT LONG, IVANNA S 03/15 [facility]ased w/o Limitations [facility](Dajuan e Mgmt Active Duty (AD)) [facility] [place] [facility](Case Managemen t [facility] [place] [facility]) OUTPATIENT [id number] CASE MANAGEM ENT LONG, IVANNA S 03/17 Released w/o Limitations [facility](Dajuan e Managem ent [facility]) [facility] [place] [facility](Case Mgmt Active Duty (AD)) OUTPATIENT [id number] CASE MANAGEM ENT IVANNA CORTÉS S 03/18 Released w/o Limitations [facility](Dajuan e Mgmt Active Duty (AD)) [facility] [place] [facility](Neurosu rgery NMCP) OUTPATIENT [id number] preangi o for 04/11/dc from [facility]/or n leave ANA HANLEY 03/25 Released w/o Limitations [facility](William rosurge ry NMCP) [facility] [place]) OUTPATIENT [id number] bump under R armpit x 3 days MARYLU HODGES 04/05 Released w/o Limitations [facility] ) [facility] [place] [facility] DIRECT TO MTF FROM OTHER THAN ER OR [facility] [id number] EDUIN TORRES RACHEL 04/11 [employer] [facility] [place] [facility](Neurosu rgery NMCP) OUTPATIENT [id number] f/u after angiogr am 04/11 ANA HANLEY 04/14 Released w/o Limitations [facility](William rosurge ry NMCP) [facility] [place] [facility] ADMISSION RESULTING FROM [facility], DIRECT TO MTF [id number] ANA HANLEY 04/19 RETURNED TO DUTY [facility] [place] [facility](Neurosu rgery NMCP) TELE CONSULT [id number] please call pt post surgery . Dr.Cobe brown, perform ed surgery 2 weeks ago. CHELSEA NEAL 05/06 [facility](William rosurge ry NMCP) [facility](Case Managemen t [facility] [place] [facility]) OUTPATIENT [id number] Case Managem ent IVANNA CORTÉS S 05/06 Released w/o Limitations [facility](Dajuan e Managem ent [facility] [place] [facility](Neurosu rgery NMCP) TELE CONSULT [id number] pt would like for you to call him back, did not give details as to why. CHELSEA NEAL 05/23 [facility](William rosurge ry NMCP) [facility] [place] [facility](Neurosu rgery NMCP) OUTPATIENT [id number] 1st post op f/u; no xrays ANA HANLEY 05/31 Released w/o Limitations [facility](William rosurge ry NMCP) [facility] [place] [facility](Neurosu rgery NMCP) TELE CONSULT [id number] [facility] CHELSEA NEAL 06/22 [facility](William rosurge ry NMCP) [facility] [place] [facility]) OUTPATIENT [id number] c/o hang nail ingrown on lt foot 3 wks ANUJ BONE 06/28 Released w/o Limitations [facility] ) [facility]gery NM[facility]) TELE CONSULT [id number] Med board CHELSEA NEAL 07/22 [facility](William rosurge ry NMCP) [facility](Neurosu [facility]gery NMCP) TELE CONSULT [id number] Questio n CHELSEA NEAL 08/03 [facility](William rosurge ry NMCP) [facility] [place] (Case Mgmt Active Duty (AD)) OUTPATIENT [id number] Case Managem ent IVANNA CORTÉS S 08/16 Released w/o Limitations [facility](Dajuan e Mgmt Active Duty (AD)) [facility] [place] [facility](Case Mgmt Active Duty (AD)) OUTPATIENT [id number] Case Managem ent IVANNA CORTÉS S 08/17 Released w/o Limitations [facility](Dajuan e Mgmt Active Duty (AD)) [facility] [place](Case Mgmt Active Duty (AD)) OUTPATIENT [id number] Case Managem ent IVANNA CORTÉS S 08/18 Released w/o Limitations [facility](Dajuan e Mgmt Active Duty (AD)) [facility] [place](Case Mgmt Active Duty (AD)) OUTPATIENT [id number] Case Managem ent IVANNA CORTÉS S 08/19 Released w/o Limitations [facility](Dajuan e Mgmt Active Duty (AD)) [facility] [place] [facility]) OUTPATIENT [id number] poss strep throat 2 days. TAMIA BALTAZAR 08/26 Released w/o Limitations [facility] ) [facility] [place]([facility]) OUTPATIENT [id number] sore throat, weaknes s x 8 days; already seen but not better DAKOTA MCCORMICK 09/01 Released w/o Limitations [facility] ) [facility] [place] [facility](Hearing Cons [employer]) OUTPATIENT [id number] PAL MCLEOD 09/05 Released w/o Limitations [facility](Hea ring Cons [facility]) [facility](Immuniz ations [facility] [place]) OUTPATIENT [id number] ppd/flu mist KAREEN ARMENDARIZ 09/05 Released w/o Limitations [facility](Imm unizati ons [facility] [place] ) [facility] [place] [facility](Case Mgmt Active Duty (AD)) OUTPATIENT [id number] Case Managem ent IVANNA CORTÉS S 09/05 Released w/o Limitations [facility](Dajuan e Mgmt Active Duty (AD)) [facility](Immuniz ations [facility]) OUTPATIENT [id number] ppd check JESSICA SOSA 09/07 Released w/o Limitations [facility](Imm unizati ons [facility] ) [facility](Neurosu rgery NMCP) OUTPATIENT [id number] f/u EDUIN TORRES 10/04 Released with Work/Duty Limitations [facility](William rosurge ry NMCP) [facility] [place]) OUTPATIENT [id number] part 2 [facility] [place] [facility] Silvia 10/06 Released w/o Limitations [facility] [place]([facility] [place]) [facility] [place] [facility](Neurosu rgery NMCP) TELE CONSULT [id number] DR. HANLEY PATIENT CHELSEA NEAL 10/20 [facility] [place](William rosurge ry NMCP) [facility] [place](Case Mgmt Active Duty (AD)) OUTPATIENT [id number] Case Managem ent IVANNA CORTÉS 10/26 [facility]ased w/o Limitations [facility](Dajuan e Mgmt Active Duty (AD)) [facility] [place] [facility](Occ Therapy NMCP) OUTPATIENT [id number] [facility] DELETE_MEREDITH SEN 10/26 Released w/o Limitations [facility] [place](Occ Therapy NMCP) [facility] [place] [facility](Occ Therapy NMCP) OUTPATIENT [id number] LILI MONTES 10/31 Released w/o Limitations [facility] [place](Occ Therapy NMCP) [facility] [place] [facility](Occ Therapy NMCP) OUTPATIENT [id number] PAULO CORTÉS 11/02 Released w/o Limitations [facility] [place](Occ Therapy NMCP) [facility] [place] [facility](Neurosu rgery NMCP) TELE CONSULT [id number] Letter CHELSEA NEAL 11/04 [facility](William rosurge ry NMCP) [facility] [place] [facility](Occ Therapy NMCP) OUTPATIENT [id number] PAULO CORTÉS 11/07 [facility]ased w/o Limitations [facility] [place](Occ Therapy [facility]) [facility] [place] [facility](Occ Therapy NMCP) OUTPATIENT [id number] LILI MONTES 11/09 Released w/o Limitations [facility] [place](Occ Therapy NM[facility]) [facility] [place] [facility](Neurosu rgery NMCP) OUTPATIENT [id number] EDUIN TORRES 11/10 Released with Work/Duty Limitations [facility] [place](William rosurge ry NMCP) [facility] [place] [facility]) OUTPATIENT [id number] Headach es since Sep 2008 DENISE BUSH Shalom 11/16 Released w/o Limitations [facility](Mil AC [facility] ) [facility] [place] [facility](Neurosu rgery NMCP) TELE CONSULT [id number] dr torres patient . HAN SHAH 11/16 [facility](William rosurge ry NMCP) [facility] [place](Occ Therapy NMCP) OUTPATIENT [id number] LILI MONTES 11/17 Released w/o Limitations [facility](Occ Therapy NMCP) [facility] [place](Neurosu rgery NMCP) TELE CONSULT [id number] pt status post brain hemmora ge now having difficu lt painful swallow ing. HAN SHAH 11/21 [facility](William rosurge ry NMCP) [facility] [place](Occ Therapy NMCP) OUTPATIENT [id number] LILI MONTES 11/21 Released w/o Limitations [facility](Occ Therapy NMCP) [facility] [place](Case Mgmt Active Duty (AD)) OUTPATIENT [id number] Case Managem ent IVANNA CORTÉS 11/23 Released w/o Limitations [facility](Dajuan e Mgmt Active Duty (AD)) [facility] [place](Occ Therapy NMCP) OUTPATIENT [id number] PAULO CORTÉS 11/23 Released w/o Limitations [facility](Occ Therapy NMCP) [facility] [place] ([facility]) OUTPATIENT [id number] H/A since Sep ZAINAB SHETH 11/24 Released w/o Limitations [facility] ) [facility] [place] [facility](Occ Therapy NMCP) OUTPATIENT [id number] MEREDITH ABDULLAHI 11/25 Released w/o Limitations [facility](Occ Therapy NMCP) [facility] [place] [facility](Case Mgmt Active Duty (AD)) OUTPATIENT [id number] Case Managem ent IVANNA CORTÉS S 12/26 Released w/o Limitations [facility] [place](Dajuan e Mgmt Active Duty (AD)) [facility] [place](Neurosu rgery NMCP) TELE CONSULT [id number] Hi patient CHELSEA NEAL 01/19 [facility] [place](William rosurge ry NMCP) [facility] [place](Case Mgmt Active Duty (AD)) OUTPATIENT [id number] Case Managem IVANNA Slade S 01/23 Released w/o Limitations [facility] [place](Dajuan e Mgmt Active Duty (AD)) [facility] [place]([employer]) OUTPATIENT [id number] 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 LATONYA MARADIAGA 02/02 Released w/o Limitations [facility] [place] ) [facility] [place](Tattoo Designer Aquatic Team NMCP) OUTPATIENT [id number] RENEE GREENWOOD 02/16 Released w/o Limitations [facility] [place](Phy s Ther Aquatic Team NMCP) [facility] [place]([employer]) OUTPATIENT [id number] HARVEY KONG 02/24 Released w/o Limitations [facility] [place] ) [facility] [place](Case Mgmt Active Duty (AD)) OUTPATIENT [id number] Case Managem IVANNA Slade S 02/24 [facility]ased w/o Limitations [facility] [place](Dajuan e Mgmt Active Duty (AD)) [facility] [place]([employer]) OUTPATIENT [id number] NORAH JIMENEZ V 02/28 [facility]ased w/o Limitations [facility] [place] ) [facility] [place] [facility]([employer]) OUTPATIENT [id number] HARVEY KONG 03/01 Released w/o Limitations [facility] [place] ) [facility] [place] [facility](Case Mgmt Active Duty (AD)) OUTPATIENT [id number] Case Managem VIANNA Slade S 03/03 Released w/o Limitations [facility] [place](Dajuan e Mgmt Active Duty (AD)) [facility] [place] [facility]([employer]) OUTPATIENT [id number] HARVEY KONG 03/06 [facility]ased w/o Limitations [facility] [place] [employer] ) [facility] [place] [facility]([employer]) OUTPATIENT [id number] HARVEY KONG 03/13 Released w/o Limitations [facility] [place] [employer] ) [facility] [place] [facility]([employer]) OUTPATIENT [id number] DYLLAN JIMENEZICA V 03/14 [facility]ased w/o Limitations [facility] [place] [employer] ) [facility] [place]([employer]) OUTPATIENT [id number] HARVEY KONG 03/15 Released w/o Limitations [facility] [place]([facility] ) [facility] [place]([employer]) OUTPATIENT [id number] JIMENEZNORAH V 03/21 Released w/o Limitations [facility] [place]([facility] ) [facility] [place]([employer]) OUTPATIENT [id number] HARVEY KONG 03/27 Released w/o Limitations [facility] [place] ) [facility] [place]([employer]) OUTPATIENT [id number] ELVIA JEFFERS 04/12 Released w/o Limitations [facility] [place] ) [facility] [place] [facility]([employer]) OUTPATIENT [id number] ELVIA JEFFERS 04/14 Released w/o Limitations [facility] [place] [facility] [employer] [facility] [place] [facility](Case Mgmt Active Duty (AD)) OUTPATIENT [id number] Case Managem ent IVANNA CORTÉS 04/17 Released w/o Limitations [facility] [place](Dajuan e Mgmt Active Duty (AD)) [facility] [place](Neurosu rgery NMCP) TELE CONSULT [id number] pt has shashank boucher medical board HAN SHAH 05/22 [facility](William rosurge ry NMCP) [facility](Neurosu [facility]gery NMCP) OUTPATIENT [id number] f/u for med boards ANA HANLEY 05/24 Released w/o Limitations [facility](William rosurge ry NMCP) [facility] [place](Case Mgmt Active Duty (AD)) OUTPATIENT [id number] Case Managem ent IVANNA CORTÉS S 05/29 Released w/o Limitations [facility](Dajuan e Mgmt Active Duty (AD)) [facility] [place] [facility] OUTPATIENT [id number] CHRIS Bartholomew S 06/01 Released w/o Limitations [facility](Phy s Ex[facility] [place]) [facility](Hearing Cons [employer]) OUTPATIENT [id number] SIDNEY DICKERSON 06/01 Released w/o Limitations [facility](Hea ring Cons [place] [employer]) [facility]) OUTPATIENT [id number] sore throat x 4 days MEREDITH PAGE 06/16 Sick at Home/Quarter s [facility] ) [facility](Neurosu rgery NMCP) TELE CONSULT [id number] prabhakar fontenot. would like to discuss med board. info cnt#[phone] ÁNGEL CHELSEA L 06/23 [facility](William rosurge ry NMCP) [facility](Case Mgmt Active Duty (AD)) OUTPATIENT [id number] Case Managem ent IVANNA CORTÉS S 08/01 Released w/o Limitations [facility](Dajuan e Mgmt Active Duty (AD)) [facility] [place]) OUTPATIENT [id number] RIGHT WRIST PAIN ZAINAB SHETH 08/02 Released w/o Limitations [facility] [place] ) [facility] [place] (Optomet ry [employer]) OUTPATIENT [id number] eye exam DOROTHY SUHN 08/04 Released w/o Limitations [facility](Opt ometry [place]) [facility](Immuniz ation NMCP) OUTPATIENT [id number] Adult Imms - Flumist LISA PRASAD N P 08/17 Released w/o Limitations [facility](Imm unizati on NMCP) [facility](Neurosu rgery NMCP) TELE CONSULT [id number] Dr.Cobe brown pt. Mrs. Harvey rubio of Med Boards request ing consult for pt. CHELSEA NEAL Mahin 08/28 [facility](William rosurge ry NMCP) [facility](Neurosu rgery NMCP) TELE CONSULT [id number] PEB request PT HAN SHAH 09/04 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(Phy s Ther NMPS) [facility](Occ Therapy NMCP) OUTPATIENT [id number] AVM PAL Powell 09/12 Released w/o Limitations [facility](Occ Therapy NMCP) [facility](Case Mgmt Active Duty (AD)) OUTPATIENT [id number] Case Managem ent IVANNA CORTÉS 09/21 Released w/o Limitations [facility](Dajuan e Mgmt Active Duty (AD)) [facility] OUTPATIENT [id number] UPDATE LIMITED PROFILE FOR ZAINAB JACOME 11/01 Released w/o Limitations [facility](Immuniz ations [facility]) OUTPATIENT [id number] VACCINE S WILTON SILVA 11/15 Released w/o Limitations [facility](Imm unizati ons [facility] ) [facility](Immuniz ations [facility]) OUTPATIENT [id number] vaccine JESSICA SOSA D 11/21 Released w/o Limitations [facility](Imm unizati ons [facility] ) [facility]([employer] [place]) OUTPATIENT [id number] MEDICAL ASSIGNM ENT SCREEN (STANDB Y) KERRI TREJO 11/24 Released w/o Limitations [facility](Ove rseas Screeni ng [place] ) [facility]) OUTPATIENT [id number] Pain in tonsils /throat , hot flashes IRENE FERGUSON 11/28 Released w/o Limitations [facility] ) [facility](Neurosu rgery NMCP) TELE CONSULT [id number] pt's CO would like to speak with Dr Hanley [id number] CHELSEA SHINE 11/30 [facility](William rosurge ry NMCP) [facility](Neurosu rgery NMCP) OUTPATIENT [id number] f/u ANA HANLEY 12/01 Released w/o Limitations [facility](William rosurge ry NMCP) [facility](Primary Care [facility]) OUTPATIENT [id number] R MAGAÑA PAIN ZAINAB SHETH T 12/05 Released w/o Limitations [facility] ) [facility](Case Mgmt Active Duty (AD)) OUTPATIENT [id number] Case Managem ent LONGIVANNA S 12/15 Released w/o Limitations [facility](Dajuan e Mgmt Active Duty (AD)) [facility](Immuniz ations [facility]) OUTPATIENT [id number] vaccine CIERA FOREMAN 01/09 Released w/o Limitations [facility](Imm unizati ons [facility] ) [facility]) OUTPATIENT [id number] Chest Pain EMMA WHALEY 01/17 Released w/o Limitations [facility] ) [facility]) OUTPATIENT [id number] Injured right foot during PT x 5 days AYAD JEAN Son 02/21 Released w/o Limitations [facility] ) [facility](Primary Care [facility]) OUTPATIENT [id number] f/u xray results ZAINAB SHETH 03/06 Released w/o Limitations [facility] ) [facility](Neurosu afshin NMCP) TELE CONSULT [id number] Dr Hanley Pt . needs form stating he can fly. Pt leaving [place] on 7[place]6 ÁNGEL, CHELSEA L 03/26 [facility](William rosurge ry NMCP) [facility]) OUTPATIENT [id number] sore throat EMMA WHALEY EDWARD 03/28 Released w/o Limitations [facility] ) [facility]) OUTPATIENT [id number] seen yesterd ay for sorethr oat today throat is worse BRENT HARRISON 03/29 Released w/o Limitations [facility] ) [facility](Immuniz ations [facility]) OUTPATIENT [id number] vaccine JAZZ DAVIS 05/09 Released w/o Limitations [facility](Imm unizati ons [facility] ) [facility]) OUTPATIENT [id number] R FOOT EVALUAT ION ZAINAB SHETH 05/15 Released w/o Limitations [facility] ) [facility](Immuniz ations [facility]) OUTPATIENT [id number] vaccine KAREEN ARMENDARIZ 05/21 Released w/o Limitations [facility](Imm unizati ons [facility] [place] ) [facility] [place] [facility]) OUTPATIENT [id number] SEPARAT ION PHYSICA L [id number] CHRIS CHONG 05/22 Released w/o Limitations [facility](Phy s [facility] [place] [facility]) [facility](Neurosu rgery NMCP) TELE CONSULT [id number] Pt c/o of more frequen t paralys is, since surgery . CHELSEA NEAL 06/11 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 CASEHAN 08/01 [facility](William rosurge ry NMCP) [facility] Outpatient Encounter [id number] 05/23 [facility] En[facility] [id number] 05/29 [facility] Outpatient Encounter [id number] 07/05 [facility] O/P EST MOD 30 MIN [id number] Diagnos is: ICD-10- CM G40.89 Other seizure s Radha OSBORNE UAN 10/07 [facility] Outpatient Encounter [id number] 10/08 [facility] OFFICE O/P EST MOD 30 MIN [id number] Diagnos is: ICD-10- CM 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, site unspeci HARI Hale 12/29 [facility] Outpatient Encounter [id number] 03/16 [facility] Outpatient Encounter [id number] CHRISTINE SALDIVAR 03/18 [facility] O/P EST LOW 20 MIN [id number] Diagnos is: ICD-10- CM Z00.00 Encntr for general adult medical exam w/o abnorma l finding s Nicanor KENNEDY L 03/18 [facility] Outpatient Encounter [id number] 04/07 [facility] Outpatient Encounter [id number] 07/13 [facility] Outpatient Encounter [id number] 09/09 [facility] Procedures Combined list of: 1) Procedures from Department of [facility] Affairs facilities going back up to thelast 18 months, not all VA non-surgical procedures are included; 2) All procedures from the Department of Defense facilities. Procedure Procedure Type Code Date Perfomer Comments Sourc e PT A e ment Kinetic Training PT Assessment Kinetic Training 93494 2007 JAZZ CARTER Patient Training And Self-Care Skills Patient Training And Self-Care Skills 04855 2007 JAZZ CARTER A isted Exercises For ROM Assisted Exercises For ROM 97789 2007 JAZZ CARTER Treatment Of Swallowing Dysfunction Treatment Of Swallowing Dysfunction 59763 2007 ODALIS RODRIGUEZ MD Supervised Individual Speech/Hearing Therapy 2007 ODALIS RODRIGUEZ Treatment Of Swallowing Dysfunction Treatment Of Swallowing Dysfunction 05205 2007 JENNIFER ODALIS [facility] Tracheostomy speaking valve 2007 ALLISON RODRIGUEZShalom Hernandez [facility] Evaluation of Speech / Hearing Problem 2007 ALLISON RODRIGUEZShalom Hernandez [facility] Evaluation Of Swallowing And Oral Function Evaluation Of Swallowing And Oral Function 18121 2007 JENNIFERODALIS [facility] Tracheostomy speaking valve 2007 JENNIFER ODALIS [facility] Health And Behav A e mt Each 15 Min Initial A e ment Health And Behav Assessmt Each 15 Min Initial Assessment 85410 2007 HECTOR DODGE [facility] Medical Nutrition Therapy Re-a e ment And Intervention Each 15 Minutes Medical Nutrition Therapy Re-assessment And Intervention Each 15 Minutes 51326 2007 CHIDI ROBERT [facility] Medical Nutrition Therapy Re-a e ment And Intervention Each 15 Minutes Medical Nutrition Therapy Re-assessment And Intervention Each 15 Minutes 42553 2007 CHIDI ROBERT [facility] Medical Nutrition Therapy Re-a e ment And Intervention Each 15 Minutes Medical Nutrition Therapy Re-assessment And Intervention Each 15 Minutes 77985 2007 CHIDI ROBERT [facility] Immunization Admin By Intranasal / Oral Route One Vaccine Immunization Admin By Intranasal / Oral Route One Vaccine 35639 2006 PASQUALE PLASCENCIA [facility] Influenza Virus Vaccine Intranasal Live Attenuated 2006 PASUQALE PLASCENCIA [facility] Skin Test Anergy Tuberculin Intradermal Skin Test Anergy Tuberculin Intradermal 70379 2006 PASQUALE PLASCENCIA [facility] Psychotherapy Individual Approximately 30 Minutes Psychotherapy Individual Approximately 30 Minutes [id number] 2006 ALESSIA TAN [facility] Psychiatric Diagnostic Evaluation Comprehensive Examination Psychiatric Diagnostic Evaluation Comprehensive Examination [id number] 2006 ALESSIA TAN [facility] Hepatitis A And Hepatitis B (Intramuscular Use) Adult Dosage Hepatitis A And Hepatitis B (Intramuscular Use) Adult Dosage 79035 2006 ROQUE WHITNEY [facility] Immunization Administration By Injection, One Vaccine Immunization Administration By Injection, One Vaccine 03064 2006 ROQUE WHITNEY [facility] Threshold Audiogram (Pure Tone) Threshold Audiogram (Pure Tone) 62662 2006 KOMAL SYED [facility] Audiogram (Screening) Audiogram (Screening) 96896 2006 RITCHIE YOUNG Ophthalmological New Patient Start Comprehensive Care Ophthalmological New Patient Start Comprehensive Care [id number] 2006 GUSTAVO VALLE Determination Of Refractive State Determination Of Refractive State [id number] 2006 GUSTAVO VALLE A isted Exercises For ROM Assisted Exercises For ROM 52339 2006 BRET VILLA PT A e ment Kinetic Training Initial 30 Minutes PT Assessment Kinetic Training Initial 30 Minutes 50163 2006 BRET VILLA Physical Medicine - Group Physical Therapy Se ion Physical Medicine - Group Physical Therapy Session 41543 2006 BRET VILLA Psychiatric Therapy Environmental Intervention Psychiatric Therapy Environmental Intervention 32249 2006 LEMUEL SAMPSON Psychotherapy Individual Approximately 30 Minutes Psychotherapy Individual Approximately 30 Minutes 88960 2006 LEMUEL SAMPSON Psychologic Testing And Report Administered By Computer Psychologic Testing And Report Administered By Computer [id number] 2006 LEMUEL SAMPSON Psychiatric Diagnostic Evaluation Comprehensive Examination Psychiatric Diagnostic Evaluation Comprehensive Examination 39931 2006 LEMUEL SAMPSON Skin Test Anergy Tuberculin Intradermal Skin Test Anergy Tuberculin Intradermal 37667 2009 KAREEN ARMENDARIZ [facility] Skin Test Anergy Tuberculin Intradermal Skin Test Anergy Tuberculin Intradermal 87102 2009 JAZZ DAVIS Electrocardiogram Electrocardiogram 96377 01/17 EMMA WHALEY [facility] Skin Test Anergy Tuberculin Intradermal Skin Test Anergy Tuberculin Intradermal 07452 2009 CIERA FOREMAN Coordinated care fee, risk adjusted maintenance 2009 IVANNA CORTÉS [facility] Case Management, each 15 minutes 2009 IVANNA CORTÉS [facility] Influenza Virus Vaccine Pandemic Formulation Influenza Virus Vaccine Pandemic Formulation 51415 2009 WILTON SILVA Immunization Admin By Intranasal / Oral Route One Vaccine Immunization Admin By Intranasal / Oral Route One Vaccine 61400 2009 WILTON SILVA Immunization Administration By Injection, Each Additional Vaccine 2009 WILTON SILVA Typhoid Vaccine Vi Capsular Polysaccharide, For Intramus Use Typhoid Vaccine Vi Capsular Polysaccharide, For Intramus Use 09437 2009 WILTON SILVA [facility] Skin Test Anergy Tuberculin Intradermal Skin Test Anergy Tuberculin Intradermal 15848 2009 WILTON SILVA [facility] Coordinated care fee, risk adjusted maintenance, Level 4 2009 LYDIA CORTÉSA S [facility] Case Management, each 15 minutes 2009 LONGLYDIAA S [facility] Occupational Therapy Evaluation Occupational Therapy Evaluation 77079 2008 PAL NIEVES 30 min [facility] Physical Therapy Service Re-Evaluation Physical Therapy Service Re-Evaluation 03239 2008 TAMIA CARMONA [facility] Influenza Virus Vaccine Intranasal Live Attenuated 2008 HEIDE PRASAD [facility] Immunization Admin By Intranasal / Oral Route One Vaccine Immunization Admin By Intranasal / Oral Route One Vaccine 41450 2008 HEIDE PRASAD [facility] Coordinated care fee, risk adjusted maintenance, Level 4 2008 MOO IVANNA S [facility] Spectacles Services Fitting Monofocal Except For Aphakia Spectacles Services Fitting Monofocal Except For Aphakia 49519 2008 DOROTHY SUH CAElin [facility] Determination Of Refractive State Determination Of Refractive State 18974 2008 DOROTHY SUH CAElin [facility] Ophthalmological New Patient Start Comprehensive Care Ophthalmological New Patient Start Comprehensive Care 12692 2008 DOROTHY SUH CAElin [facility] Physician Supervised Specimen Handling / Transfer: Office To Lab Physician Supervised Specimen Handling / Transfer: Office To Lab 19576 2008 MEREDITH PAGE [facility] Coordinated care fee, risk adjusted maintenance, Level 4 2008 MOO IVANNA S [facility] Case Management, each 15 minutes 2008 MOO IVANNA S [facility] Audiogram (Screening) Audiogram (Screening) 97091 2008 SIDNEY DICKERSON [facility] Audiometry Group Testing Audiometry Group Testing 15807 2008 SIDNEY DICKERSON [facility] Coordinated care fee, risk adjusted maintenance, Level 4 2008 MOO IVANNA S [facility] Case Management, each 15 minutes 2008 MOO IVANNA S [facility] Physical Therapy: ___ Se ion Segments, 15 Minutes Each Physical Therapy: ___ Session Segments, 15 Minutes Each 43331 2008 ELVIA JEFFERS M x 20 mins DoD Physical Therapy: ___ Se ion Segments, 15 Minutes Each Physical Therapy: ___ Session Segments, 15 Minutes Each 51169 2008 ELVIA JEFFERS x 30 mins DoD Phys Therapy Education Self Care Training - Per 15 Minutes Phys Therapy Education Self Care Training - Per 15 Minutes 97247 2008 HARVEY KONG [facility] Physical Therapy: ___ Se ion Segments, 15 Minutes Each Physical Therapy: ___ Session Segments, 15 Minutes Each 29803 2008 NORAH JIMENEZ V [facility] Aquatic Exercises Aquatic Exercises 48627 03/15 NORAH JIMENEZ V DoD Phys Therapy Education Self Care Training - Per 15 Minutes Phys Therapy Education Self Care Training - Per 15 Minutes 47289 2008 HARVEY KONG Phys Therapy Education Self Care Training - Per 15 Minutes Phys Therapy Education Self Care Training - Per 15 Minutes 43663 2008 HARVEY KONG Phys Therapy Education Self Care Training - Per 15 Minutes Phys Therapy Education Self Care Training - Per 15 Minutes 18099 2008 HARVEY KONG [facility] Coordinated care fee, risk adjusted maintenance, [...] Self Care Training - Per 15 Minutes 35676 2008 HARVEY KONG [facility] Aquatic Exercises Aquatic Exercises 09299 02/28 NORAH JIMENEZ V [facility] Phys Therapy Education Self Care Training - Per 15 Minutes Phys Therapy Education Self Care Training - Per 15 Minutes 87617 2008 HARVEY KONG [facility] Aquatic Exercises Aquatic Exercises 51508 02/16 RENEE GREENWOOD [facility] Physical Therapy Service Evaluation Physical Therapy Service Evaluation 17193 2008 LATONYA MARADIAGA [facility] Coordinated care fee, risk adjusted maintenance, Level 4 2008 LONG, IVANNA S Do[facility] Case Management, each 15 minutes 2008 LONG, IVANNA S DoD Coordinated care fee, risk adjusted maintenance, Level 4 2008 LONG, IVANNA S [facility] Case Management, each 15 minutes 2008 MOOLYDIAA S [facility] Occupational Therapy Re-Evaluation Occupational Therapy Re-Evaluation 14059 2008 MEREDITH LOMELI [facility] PT A e ment Kinetic Training PT Assessment Kinetic Training 22938 2008 MOO PAULO A DoD Coordinated care fee, risk adjusted maintenance, Level 3 2008 LONGLYDIAA S Do[facility] Case Management, each 15 minutes 2008 MOOLYDIAA S DoD PT A e ment Kinetic Training PT Assessment Kinetic Training 12630 2008 LILI MONTES PT A e ment Kinetic Training PT Assessment Kinetic Training 23761 2008 LILI MONTES PT A e ment Kinetic Training PT Assessment Kinetic Training 06056 2008 LILI MONTES Psychometric Neuropsych Testing Battery Admin By Physician Psychometric Neuropsych Testing Battery Admin By Physician 84915 2008 MONICA WATSON [facility] PT A e ment Kinetic Training PT Assessment Kinetic Training 32441 2008 MOO PAULO A Martín PT A e ment Kinetic Training PT Assessment Kinetic Training 48992 2008 MOO PAULO A DoD PT A e ment Kinetic Training PT Assessment Kinetic Training 61720 2008 PAULO CORTÉS Psychometric Neuropsych Testing Battery Admin By Physician Psychometric Neuropsych Testing Battery Admin By Physician 23310 2008 JATINDER GARCIA Psychometric Neuropsych Testing Battery Admin By Demolition Engineer Psychometric Neuropsych Testing Battery Admin By Demolition Engineer 82292 2008 JATINDER GARCIA [facility] A isted Exercises For ROM Assisted Exercises [place] ROM 86565 2008 TIAGOTEMEREDITH IZAGUIRRE Patient Training And Self-Care Skills Patient Training And Self-Care Skills 07515 2008 MEREDITH LOMELI Occupational Therapy Evaluation Occupational Therapy Evaluation 74173 2008 MEREDITH LOMELI Coordinated care fee, risk adjusted maintenance, Level 3 2008 LONGLYDIAA S DoD Case Management, each 15 minutes 2008 MOO IVANNA S [facility] Psychologic Testing And Report Administered By Computer Psychologic Testing And Report Administered By Computer 16381 2008 JATINDER GARCIA [facility] Psychometric Neuropsych Testing Battery Admin By Demolition Engineer Psychometric Neuropsych Testing Battery Admin By Demolition Engineer 95285 2008 JATINDER GARCIA [facility] Psychiatric Diagnostic Evaluation Comprehensive Examination Psychiatric Diagnostic Evaluation Comprehensive Examination 97935 2008 MONICA WATSON [facility] Screening Test Of Visual Acuity, Quantitative, Bilateral Screening Test Of Visual Acuity, Quantitative, Bilateral 02619 2008 SIERRA DE LA ROSA [facility] Coordinated care fee, risk adjusted maintenance, Level 3 2007 LONG, IVANNA S Do[facility] Case Management, each 15 minutes 2007 LONG, IVANNA S [facility] Audiometry Group Testing Audiometry Group Testing 84588 2007 PAL MCLEOD [facility] Immunization Admin By Intranasal / Oral Route One Vaccine Immunization Admin By Intranasal / Oral Route One Vaccine 71969 2007 [facility] Influenza Virus Vaccine Intranasal Live Attenuated 2007 [facility] Skin Test Anergy Tuberculin Intradermal Skin Test Anergy Tuberculin Intradermal 05863 2007 [facility] Venipuncture Venipuncture 17806 2007 DAKOTA MCCORMICK [facility] Physician Supervised Specimen Handling / Transfer: Office To Lab Physician Supervised Specimen Handling / Transfer: Office To Lab 24154 2007 DAKOTA MCCORMICK [facility] Physician Supervised Specimen Handling / Transfer: Office To Lab Physician Supervised Specimen Handling / Transfer: Office To Lab 78579 2007 TAMIA BALTAZAR Do[facility] Case Management, each [...] each 15 minutes 2007 LONG, IVANNA S [facility] Treatment Of Swallowing Dysfunction Treatment Of Swallowing Dysfunction 39461 2007 ODALIS RODRIGUEZ [facility] Physical Therapy Neuromuscular Re-education Physical Therapy Neuromuscular Re-education 12848 2007 JAZZ CARTER [facility] Treatment Of Swallowing Dysfunction Treatment Of Swallowing Dysfunction 79828 2007 ODALIS RODRIGUEZ [facility] Patient Training And Self-Care Skills Patient Training And Self-Care Skills 05951 2007 JAZZ CARTER [facility] Medical Nutrition Therapy Re-a e ment And Intervention Each 15 Minutes Medical Nutrition Therapy Re-assessment And Intervention Each 15 Minutes 20585 2007 YOLANDA CEDEÑO [facility] Patient Training And Self-Care Skills Patient Training And Self-Care Skills 84801 2007 JAZZ CARTER [facility] Physical Therapy Neuromuscular Re-education Physical Therapy Neuromuscular Re-education 52968 2007 JAZZ CARTER [facility] INDIVIDUAL PSYCHOTHERAPY, INSIGHT ORIENTED, BEHAVIOR MODIFYING AND/OR SUPPORTIVE, IN AN OFFICE OR OUTPATIENT FACILITY, APPROXIMATELY 20 TO 30 MINUTES [id number] WITH THE PATIENT 2006 [facility] PSYCHIATRIC DIAGNOSTIC INTERVIEW EXAMINATION 2006 [facility] IMMUNIZATION ADMINISTRATION (INCLUDES PERCUTANEOUS, INTRADERMAL, SUBCUTANEOUS, OR INTRAMUSCULAR INJECTIONS); 1 VACCINE (SINGLE OR COMBINATION VACCINE/TOXOID) 2006 [facility] PURE TONE AUDIOMETRY (THRESHOLD); AIR ONLY 2006 [facility] DETERMINATION OF REFRACTIVE STATE 2006 [facility] THERAPEUTIC PROCEDURE, 1 OR MORE AREAS, EACH 15 MINUTES; THERAPEUTIC EXERCISES TO DEVELOP STRENGTH AND ENDURANCE, RANGE OF MOTION AND FLEXIBILITY 2006 [facility] BUPRENORPHINE IMPLANT, 74.2 MG 2006 [facility] INDIVIDUAL PSYCHOTHERAPY, INSIGHT ORIENTED, BEHAVIOR MODIFYING AND/OR SUPPORTIVE, IN AN OFFICE OR OUTPATIENT FACILITY, APPROXIMATELY 20 TO 30 MINUTES [id number] WITH THE PATIENT 2006 [facility] PSYCHOLOGICAL TSTING (INCL PSYCHODIAG ASSESSMNT, EMOTITY, INTELLECTUAL ABILITIES, PERSONALITY &PSYCHOPATHOLOGY, EG, MMPI), ADMINISTERED COMPUTER, [facility] DIRECTOR INTERPRET &RPT 2006 [facility] PSYCHIATRIC DIAGNOSTIC INTERVIEW EXAMINATION 2006 [facility] THERAPEUTIC PROCEDURE, 1 OR MORE AREAS, EACH 15 MINUTES; THERAPEUTIC EXERCISES TO DEVELOP STRENGTH AND ENDURANCE, RANGE OF MOTION AND FLEXIBILITY 2005 [facility] ORAL THERMOMETER, REUSABLE, ANY TYPE, EACH 2005 [facility] TYPHOID VACCINE, CAPSULAR POLYSACCHARIDE (VICPS), FOR INTRAMUSCULAR USE 2005 [facility] BUPRENORPHINE IMPLANT, 74.2 MG 2005 [facility] SCREENING TEST OF VISUAL ACUITY, QUANTITATIVE, BILATERAL 2005 [facility] AUDIOMETRIC TESTING OF GROUPS 2005 [facility] SKIN TEST; TUBERCULOSIS, INTRADERMAL 2005 [facility] SKIN TEST; TUBERCULOSIS, INTRADERMAL 2009 [facility] SKIN TEST; TUBERCULOSIS, INTRADERMAL 2009 [facility] ELECTROCARDIOGRAM, ROUTINE ECG WITH AT LEAST 12 LEADS; WITH INTERPRETATION AND REPORT 2009 [facility] SKIN TEST; TUBERCULOSIS, INTRADERMAL 2009 [facility] CASE MANAGEMENT, EACH 15 MINUTES 2009 [facility] IMMUNIZATION ADMINISTRATION (INCLUDES PERCUTANEOUS, INTRADERMAL, SUBCUTANEOUS, OR INTRAMUSCULAR INJECTIONS); EACH ADDITIONAL VACCINE (SINGLE OR COMBINATION VACCINE/TOXOID) 2009 [facility] CASE MANAGEMENT, EACH 15 MINUTES 2008 [facility] OCCUPATIONAL THERAPY EVALUATION 2008 [facility] PHYSICAL THERAPY RE-EVALUATION 2008 [facility] INFLUENZA VIRUS VACCINE, TRIVALENT, LIVE (LAIV3), FOR INTRANASAL USE 2008 [facility] FITTING OF SPECTACLES, EXCEPT FOR APHAKIA; MONOFOCAL 2008 [facility] COORDINATED CARE FEE, RISK ADJUSTED MAINTENANCE, LEVEL 4 2008 [facility] HANDLING AND/OR CONVEYANCE OF SPECIMEN FOR TRANSFER FROM THE OFFICE TO A LABORATORY 2008 [facility] SCREENING TEST, PURE TONE, AIR ONLY 2008 [facility] COORDINATED CARE FEE, RISK ADJUSTED MAINTENANCE, LEVEL 4 2008 [facility] COORDINATED CARE FEE, RISK ADJUSTED MAINTENANCE, LEVEL 4 2008 [facility] THERAPEUTIC PROCEDURE, 1 OR MORE AREAS, EACH 15 MINUTES; THERAPEUTIC EXERCISES TO DEVELOP STRENGTH AND ENDURANCE, RANGE OF MOTION AND FLEXIBILITY 2008 [facility] THERAPEUTIC PROCEDURE, 1 OR MORE AREAS, EACH 15 MINUTES; THERAPEUTIC EXERCISES TO DEVELOP STRENGTH AND ENDURANCE, RANGE OF MOTION AND FLEXIBILITY 2008 [facility] SELF-CARE/HOME MANAGMENT TRAIN (EG,ACT OF DAILY [...] DoD CASE MANAGEMENT, EACH 15 MINUTES 2008 [facility] OCCUPATIONAL THERAPY RE-EVALUATION 2008 [facility] THERAPEUTIC [...] WISC CARD SORT TST),/HR OF PSYCHOLOGIST/PHYS TIME,BOTH [id number] ADMIN TST TO PAT & TIME INTERP [...] WISC CARD SORT TST),/HR OF PSYCHOLOGIST/PHYS TIME,BOTH [id number] ADMIN TST TO PAT & TIME INTERP TEST RES & PREP RPT 2008 [facility] THERAPEUTIC PROCEDURE, 1 OR MORE AREAS, EACH 15 MINUTES; THERAPEUTIC EXERCISES TO DEVELOP STRENGTH AND ENDURANCE, RANGE OF MOTION AND FLEXIBILITY 2008 [facility] COORDINATED CARE FEE, RISK ADJUSTED MAINTENANCE, LEVEL 3 2008 [facility] UNLISTED SPECIAL SERVICE, PROCEDURE OR REPORT 2008 [facility] PSYCHOLOGICAL TSTING (INCL PSYCHODIAG ASSESSMNT, EMOTITY, INTELLECTUAL ABILITIES, PERSONALITY &PSYCHOPATHOLOGY, EG, MMPI), ADMINISTERED COMPUTER, W [facility] [facility] [employer] DIRECTOR INTERPRET &RPT 2008 [facility] PSYCHIATRIC DIAGNOSTIC INTERVIEW EXAMINATION 2008 [facility] SCREENING TEST OF VISUAL ACUITY, QUANTITATIVE, BILATERAL 2008 [facility] COORDINATED CARE FEE, RISK ADJUSTED MAINTENANCE, LEVEL 3 2007 [facility] IMMUNIZATION ADMINISTRATION BY INTRANASAL OR ORAL ROUTE; 1 VACCINE (SINGLE OR COMBINATION VACCINE/TOXOID) 2007 [facility] AUDIOMETRIC TESTING OF GROUPS 2007 [facility] COLLECTION OF VENOUS BLOOD BY VENIPUNCTURE 2007 [facility] HANDLING AND/OR CONVEYANCE OF SPECIMEN FOR TRANSFER FROM THE OFFICE TO A LABORATORY 2007 [facility] CASE MANAGEMENT, EACH 15 MINUTES 2007 [facility] CASE MANAGEMENT, EACH 15 MINUTES 2007 [facility] CASE MANAGEMENT, EACH 15 MINUTES 2007 [facility] COORDINATED CARE FEE, RISK ADJUSTED MAINTENANCE 2007 [facility] CASE MANAGEMENT, EACH 15 MINUTES 2007 [facility] OTHER EXCISION OR DESTRUCTION OF LESION OR TISSUE OF BRAIN 2007 [facility] OTHER CRANIECTOMY 2007 [facility] ARTERIOGRAPHY OF CEREBRAL ARTERIES 2007 [facility] COMPUTERIZED AXIAL TOMOGRAPHY OF HEAD 2007 [...] POSTOPERATIVE PERIOD REASON RELATED ORIGINAL PROCEDURE 2007 [facility] SURGERY OF INTRACRANIAL ARTERIOVENOUS MALFORMATION; SUPRATENTORIAL, SIMPLE 2007 [facility] UNLISTED SPECIAL SERVICE, PROCEDURE OR REPORT 2007 [facility] CASE MANAGEMENT, EACH 15 MINUTES 2007 [facility] CASE MANAGEMENT, EACH 15 MINUTES 2007 [facility] CASE MANAGEMENT, EACH 15 MINUTES 2007 [facility] CASE MANAGEMENT, EACH 15 MINUTES 2007 [facility] CASE MANAGEMENT, EACH 15 MINUTES 2007 [facility] CASE MANAGEMENT, EACH 15 MINUTES 2007 [facility] TEMPORARY TRACHEOSTOMY 02/17 [facility] ENTERAL INFUSION OF CONCENTRATED NUTRITIONAL SUBSTANCES 2007 [facility] VENTRICULOSTOMY 2007 [facility] OTHER INCISION OF BRAIN 01/28 [facility] INJECTION OF ANTIBIOTIC 01/28 [facility] INJECTION OF ANTICOAGULANT 2007 [facility] OTHER LAVAGE OF BRONCHUS AND TRACHEA 2007 [facility] INSERTION OF ENDOTRACHEAL TUBE 2007 [facility] OTHER OXYGEN ENRICHMENT 01/28 [facility] RESPIRATORY MEDICATION ADMINISTERED BY NEBULIZER 2007 [facility] OTHER DIAGNOSTIC ULTRASOUND 2007 [facility] DIAGNOSTIC ULTRASOUND OF HEART 2007 [facility] ARTERIOGRAPHY OF CEREBRAL ARTERIES 2007 [facility] COMPUTERIZED AXIAL TOMOGRAPHY OF ABDOMEN 2007 [facility] COMPUTERIZED AXIAL TOMOGRAPHY OF THORAX 2007 [facility] COMPUTERIZED AXIAL TOMOGRAPHY OF HEAD 2007 [facility] CONTINUOUS MECHANICAL VENTILATION FOR 96 CONSECUTIVE HOURS OR MORE 2007 [facility] PERCUTANEOUS [ENDOSCOPIC] GASTROSTOMY [PEG] 2007 [facility] VENOUS CATHETERIZATION, NOT ELSEWHERE CLASSIFIED 2007 [facility] CLOSED [ENDOSCOPIC] BIOPSY OF BRONCHUS 2007 [facility] TREATMENT OF SWALLOWING DYSFUNCTION AND/OR ORAL FUNCTION FOR FEEDING 2007 [facility] POSTOPERATIVE FOLLOW-UP VISIT, NORMALLY INCLUDED IN THE SURGICAL PACKAGE, INDICATE THAT EVALUATION & MANAGEMENT SERVICE WAS PERFORMED DURING A POSTOPERATIVE PERIOD REASON RELATED ORIGINAL PROCEDURE 2007 [facility] THERAPEUTIC PROCEDURE,1 OR MORE AREAS,EACH 15 MINUTES;NEUROMUSCULAR REEDUCATION OF MOVEMENT,BALANCE,COORDI NATION,KINESTHETIC SENSE,POSTURE,AND/OR PROPRIOCEPTION FOR SITTING AND/OR STANDING ACTIVITIES 2007 [facility] TREATMENT OF SWALLOWING DYSFUNCTION AND/OR ORAL FUNCTION FOR FEEDING 2007 [facility] THERAPEUTIC PROCEDURE, 1 OR MORE AREAS, EACH 15 MINUTES; GAIT TRAINING (INCLUDES STAIR CLIMBING) 2007 [facility] POSTOPERATIVE FOLLOW-UP VISIT, NORMALLY INCLUDED IN THE SURGICAL PACKAGE, INDICATE THAT EVALUATION & MANAGEMENT SERVICE WAS PERFORMED DURING A POSTOPERATIVE PERIOD REASON RELATED ORIGINAL PROCEDURE 2007 [facility] SELF-CARE/HOME MANAGMENT TRAIN (EG,ACT OF DAILY LIVING (ADL) &COMPENSAT TRAIN,MEAL PREPARATION,SAFETY PROCS,AND INSTRUCT IN USE OF ASST TECHNOLOGY DEV/ADPT EQUIP) DIR ONE-ON-ONE CONT,EA 15 MINUTES 2007 [facility] THERAPEUTIC PROCEDURE, 1 OR MORE AREAS, EACH 15 MINUTES; GAIT TRAINING (INCLUDES STAIR CLIMBING) 2007 [facility] MEDICAL NUTRITION THERAPY; RE-ASSESSMENT AND INTERVENTION, INDIVIDUAL, [id number] WITH THE PATIENT, EACH 15 MINUTES 2007 [facility] SELF-CARE/HOME MANAGMENT TRAIN (EG,ACT OF DAILY LIVING (ADL) &COMPENSAT TRAIN,MEAL PREPARATION,SAFETY PROCS,AND INSTRUCT IN USE OF ASST TECHNOLOGY DEV/ADPT EQUIP) DIR ONE-ON-ONE CONT,EA 15 MINUTES 2007 [facility] THERAPEUTIC ACTIVITIES, DIRECT (ONE-ON-ONE) PATIENT CONTACT (USE OF DYNAMIC ACTIVITIES TO IMPROVE FUNCTIONAL PERFORMANCE), EACH 15 MINUTES 2007 [facility] POSTOPERATIVE FOLLOW-UP VISIT, NORMALLY INCLUDED IN THE SURGICAL PACKAGE, INDICATE THAT EVALUATION & MANAGEMENT SERVICE WAS PERFORMED DURING A POSTOPERATIVE PERIOD REASON RELATED ORIGINAL PROCEDURE 2007 [facility] POSTOPERATIVE FOLLOW-UP VISIT, NORMALLY INCLUDED IN THE SURGICAL PACKAGE, INDICATE THAT EVALUATION & MANAGEMENT SERVICE WAS PERFORMED DURING A POSTOPERATIVE PERIOD REASON RELATED ORIGINAL PROCEDURE 2007 [facility] PHYSICAL THERAPY RE-EVALUATION 2007 [facility] POSTOPERATIVE FOLLOW-UP VISIT, NORMALLY INCLUDED IN THE SURGICAL PACKAGE, INDICATE THAT EVALUATION & MANAGEMENT SERVICE WAS PERFORMED DURING A POSTOPERATIVE PERIOD REASON RELATED ORIGINAL PROCEDURE 2007 [facility] THERAPEUTIC ACTIVITIES, DIRECT (ONE-ON-ONE) PATIENT CONTACT (USE OF DYNAMIC ACTIVITIES TO IMPROVE FUNCTIONAL PERFORMANCE), EACH 15 MINUTES 2007 [facility] TREATMENT OF SWALLOWING DYSFUNCTION AND/OR ORAL FUNCTION FOR FEEDING 2007 [facility] POSTOPERATIVE FOLLOW-UP VISIT, NORMALLY INCLUDED IN THE SURGICAL PACKAGE, INDICATE THAT EVALUATION & MANAGEMENT SERVICE WAS PERFORMED DURING A POSTOPERATIVE PERIOD REASON RELATED ORIGINAL PROCEDURE 2007 [facility] THERAPEUTIC ACTIVITIES, DIRECT (ONE-ON-ONE) PATIENT CONTACT (USE OF DYNAMIC ACTIVITIES TO IMPROVE FUNCTIONAL PERFORMANCE), EACH 15 MINUTES 2007 [facility] THERAPEUTIC PROCEDURE, 1 OR MORE AREAS, EACH 15 MINUTES; THERAPEUTIC EXERCISES TO DEVELOP STRENGTH AND ENDURANCE, RANGE OF MOTION AND FLEXIBILITY 2007 [facility] TREATMENT OF SWALLOWING DYSFUNCTION AND/OR ORAL FUNCTION FOR FEEDING 2007 [facility] POSTOPERATIVE FOLLOW-UP VISIT, NORMALLY INCLUDED IN THE SURGICAL PACKAGE, INDICATE THAT EVALUATION & MANAGEMENT SERVICE WAS PERFORMED DURING A POSTOPERATIVE PERIOD REASON RELATED ORIGINAL PROCEDURE 2007 [facility] POSTOPERATIVE FOLLOW-UP VISIT, NORMALLY INCLUDED IN THE SURGICAL PACKAGE, INDICATE THAT EVALUATION & MANAGEMENT SERVICE WAS PERFORMED DURING A POSTOPERATIVE PERIOD REASON RELATED ORIGINAL PROCEDURE 2007 [facility] THERAPEUTIC ACTIVITIES, DIRECT (ONE-ON-ONE) PATIENT CONTACT (USE OF DYNAMIC ACTIVITIES TO IMPROVE FUNCTIONAL PERFORMANCE), EACH 15 MINUTES 2007 [facility] TREATMENT OF SPEECH, LANGUAGE, VOICE, COMMUNICATION, AND/OR AUDITORY PROCESSING DISORDER; INDIVIDUAL 2007 [facility] MEDICAL NUTRITION THERAPY; RE-ASSESSMENT AND INTERVENTION, INDIVIDUAL, [id number] WITH THE PATIENT, EACH 15 MINUTES 2007 [facility] OCCUPATIONAL THERAPY EVALUATION 2007 [facility] THERAPEUTIC ACTIVITIES, DIRECT (ONE-ON-ONE) PATIENT CONTACT (USE OF DYNAMIC ACTIVITIES TO IMPROVE FUNCTIONAL PERFORMANCE), EACH 15 MINUTES 2007 [facility] TRACHEOSTOMY SPEAKING VALVE 2007 [facility] POSTOPERATIVE FOLLOW-UP VISIT, NORMALLY INCLUDED IN THE SURGICAL PACKAGE, INDICATE THAT EVALUATION & MANAGEMENT SERVICE WAS PERFORMED DURING A POSTOPERATIVE PERIOD REASON RELATED ORIGINAL PROCEDURE 2007 [facility] PHYSICAL THERAPY EVALUATION 2007 [facility] TRACHEOSTOMY SPEAKING VALVE 2007 [facility] POSTOPERATIVE FOLLOW-UP VISIT, NORMALLY INCLUDED IN THE SURGICAL PACKAGE, INDICATE THAT EVALUATION & MANAGEMENT SERVICE WAS PERFORMED DURING A POSTOPERATIVE PERIOD REASON RELATED ORIGINAL PROCEDURE 2007 [facility] PHYSICAL THERAPY EVALUATION 2007 [facility] HEALTH&BEHAV ASSESSMENT (EG, HEALTH-FOC CLINICAL INTERVIEW, BEHAVIORAL OBSERVATIONS, PSYCHOPHYSICOLOGICAL MONITOR, HEALTH-ORIENT QUESTIONNAIRES), EA 15 MIN [id number] W THE PATIENT; INIT ASSESSMENT 2007 [facility] MEDICAL NUTRITION THERAPY; RE-ASSESSMENT AND INTERVENTION, INDIVIDUAL, [id number] WITH THE PATIENT, EACH 15 MINUTES 2007 [facility] INSERTION OF GASTROSTOMY TUBE, PERCUTANEOUS, UNDER FLUOROSCOPIC GUIDANCE INCLUDING CONTRAST INJECTION(S), IMAGE DOCUMENTATION AND REPORT 2007 [facility] MEDICAL NUTRITION THERAPY; RE-ASSESSMENT AND INTERVENTION, INDIVIDUAL, [id number] WITH THE PATIENT, EACH 15 MINUTES 2007 [facility] MEDICAL NUTRITION THERAPY; RE-ASSESSMENT AND INTERVENTION, INDIVIDUAL, [id number] WITH THE PATIENT, EACH 15 MINUTES 2007 [facility] POSTOPERATIVE FOLLOW-UP VISIT, NORMALLY INCLUDED IN THE SURGICAL PACKAGE, INDICATE THAT EVALUATION & MANAGEMENT SERVICE WAS PERFORMED DURING A POSTOPERATIVE PERIOD REASON RELATED ORIGINAL PROCEDURE 2007 [facility] POSTOPERATIVE FOLLOW-UP VISIT, NORMALLY INCLUDED IN THE SURGICAL PACKAGE, INDICATE THAT EVALUATION & MANAGEMENT SERVICE WAS PERFORMED DURING A POSTOPERATIVE PERIOD REASON RELATED ORIGINAL PROCEDURE 2007 [facility] CRANIECTOMY OR CRANIOTOMY FOR EVACUATION OF HEMATOMA, SUPRATENTORIAL; INTRACEREBRAL 2007 [facility] MEDICAL NUTRITION THERAPY; RE-ASSESSMENT AND INTERVENTION, INDIVIDUAL, [id number] WITH THE PATIENT, EACH 15 MINUTES 2007 [facility] SKIN TEST; TUBERCULOSIS, INTRADERMAL 2006 [facility] Social History Combined list of available smoking, tobacco, and other social history 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 Social History Type Response Date Comment Sourc e Tobacco smoking status NHIS VA-TOBACCO FORMER USER 03/18/2024 [facility] History of tobacco use VA-TOBACCO QUIT < 1 YEAR 03/18/2024 [facility] History of tobacco use VA-TOBACCO USER E VERY DAY 03/18/2023 [facility] History of tobacco use VA-VAAES TOBACCO USE CURRENT NRT DECLINE 11/06/2022 [facility] History of tobacco use ORYX ADMIT TOBACC O USE CIGS GR 5D 11/06/2022 [facility] History of tobacco use LIFETIME NON-USER OF TOBACCO 01/17/2011 [facility] History of tobacco use LIFETIME NON-USER OF TOBACCO 03/04/2008 [facility] This section is an empty social history section. [facility] Plan of Care List of future care activities from Department of 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 Additional future care activities may be listed in the Assessment and Plan section. Date/Time Care Activity Care Activity Detail Facili ty 03/18/2025 AMBULATORY - MEDICINE AMBULATORY - MEDICI NE [facility]
== END 2024-12-08 19:55 | disposition home or self-care (01) ==
PROVIDERS: Emergency Provider Internal Medicine Critical Care Medicine; PCP Physician Assistant
DX: K02.9 Dental caries, unspecified (principal); Z86.73 Personal history of transient ischemic attack (TIA), and cerebral infarction without residual deficits
CPT/HCPCS: 99283

== ENCOUNTER 2025-01-28 13:30 | Emergency (ER) | payer OTHER, SELFPAY ==
--- NOTE | ~2025-01-28 | XR_ITS ---
XR lumbar spine 2-3V 01/28/2025 14:08 Indication: Low back pain Procedure: 3 views lumbar spine Comparison: No prior studies for comparison. Findings: There is mild levoscoliosis. IVC filter tip at the L1-2 level. Vertebral body heights are m aintained. No fracture or traumatic malalignment. No evidence for spondylolisthesis. Sacral foramen a re symmetric. No significant disc narrowing. Impression: 1: Mild levoscoliosis. Reviewed, dictated and finalized at location A. Impression: 1: Mild levoscoliosis.
--- NOTE | ~2025-01-28 | XR_ITS ---
[XR ribs BI 3V w CXR 2V ] INDICATION: Right-sided rib pain. Chest congestion. TECHNIQUE: Frontal projection of the upper ribs, frontal projection of the lower ribs, oblique projec tion of all the ribs, frontal inspiratory chest x-ray for interpretation. FINDINGS: There are no displaced rib fractures identified. There are no soft tissue abnormality see n. The lungs are clear. There is an IVC filter present, superior tip at the L1-2 level. IMPRESSION: 1:No acute displaced rib fractures. Reviewed, dictated and finalized at location A.
--- NOTE | ~2025-01-28 | XR_ITS ---
Thoracic spine: Clinical Indication: Right-sided pain Contrast AP and lateral views were performed. No fracture is seen. There is normal alignment of the vertebrae. The intervertebral disc spaces appe ar normal. Paravertebral soft tissues appear normal. Impression: No significant abnormalities noted. Reviewed, dictated and finalized at [facility]. Impression: No significant abnormalities noted.
[2025-01-28 13:31] VITALS: BP 132/85; PULSE 88; RESP 15; TEMP 36.7; O2SAT 99
--- NOTE | 2025-01-28 13:35 | ED.BACK ---
HPI - Back Pain/Injury General Chief Complaint: Back Pain/Injury Stated Complaint: back pain Time Seen by Provider: 01/28/25 13:34 Source: patient Mode of arrival: ambulatory Limitations: no limitations History of Present Illness HPI Narrative: patient is a 39-year-old male with mid to lower back pain after jumping up and down on a trampoline a few weeks ago. He has been also moving his family member's house from 1 to another and that is making it worse. No head or neck injury. No other injuries. MD elicited complaint: back pain and back injury Pertinent past history: other ( None) Onset (ago): week(s) ( 3) Timing: constant Severity: moderate Pain scale (0-10): 6 Similar Symptoms Previously: Yes Quality: sharp, spasming and throbbing Location: lumbar spine and thoracic spine Radiation: none Exacerbating factors: movement Relieving factors: immobilization Context: while lifting, turning/twisting and fall ( trampoline jumping 3 weeks ago) Associated symptoms: denies other symptoms Treatments prior to arrival: other medications ( NSAIDs) Work related injury: No Related Data Allergies Allergy/AdvReac Type Severity Reaction Status Date / Time No Known Allergies Allergy Verified 01/28/25 13:36 Review of Systems Review of Systems: All systems reviewed & are unremarkable except as noted in HPI and below Constitutional: Constitutional: Reports no additional constitutional complaints Eyes: Eyes: Reports no additional eye complaints ENT: Reports system reviewed and no additional complaints, except as documented Cardiovascular: Cardiovascular: Reports no additional cardiovascular complaints Respiratory: Respiratory: Reports no additional respiratory complaints Gastrointestinal: Gastrointestinal: Reports no additional gastrointestinal complaints Genitourinary: Genitourinary: Reports no additional male genitourinary complaints Musculoskeletal: Musculoskeletal: Reports no additional musculoskeletal complaints Integumentary/Breasts: Skin/Breast: Reports system reviewed and no additional complaints, except as docu Neurologic: Reports system reviewed and no additional complaints, except as documented Psychiatric: Psychiatric: Reports no additional psychiatric complaints Endocrine: Endocrine: Reports no additional endocrine complaints Hematologic/Lymphatic: Hematologic/Lymphatic: Reports no additional hematologic/lymphatic complaints Allergic/Immunologic: Allergic/Immunologic: Reports no additional allergic/immunologic complaints PMFSH Past Medical History Medical History AVM (arteriovenous malformation) brain Seizures AVM (arteriovenous malformation) History of stroke Exam Const: General: healthy appearing Nutritional Appearance: well nourished Orientation/consciousness: patient oriented x3 HENMT: Head: normal to inspection Ears: external ears normal Face/Nose/Sinus: Normal external nose present Eyes: Conjunctivae: conjunctivae normal Pupils: Equal, round and reactive pupils present EOM: EOMs intact bilaterally Chest: Chest palpation & inspection: normal inspection of the chest Resp: Effort & Inspection: normal respiratory effort and not labored Auscultation: clear to auscultation bilaterally and no crackles Cardio: Rate: regular rate Rhythm: regular rhythm Heart sounds: no murmurs GI: Inspection: non-distended GI Palp: Yes Soft to palpation and No Tenderness to palpation present (GI) Auscultation: normal bowel sounds : General: Yes bladder normal to palpation Back/Spine/Pelvis: Back: no CVA tenderness Other: tender paraspinal and tight muscles of thoracic lower and upper lumbar area; slightly tender to the right palpation of the ribs mid axillary Skin: General skin exam: normal color Rashes: no rashes Wounds: no wounds Neuro: General: patient oriented x3 Cranial nerves: Yes Nystagmus not present Speech: normal speech Extrem: General: normal to inspection Psych: Mental Status: mental status grossly normal Affect: normal affect Attitude: cooperative Course Vital Signs Vital signs: Vital Signs Temperature 36.7 C 01/28/25 13:31 Pulse Rate 88 01/28/25 13:31 Respiratory Rate 15 01/28/25 13:31 Blood Pressure 132/85 01/28/25 13:31 Pulse Oximetry 99 01/28/25 13:31 Oxygen Delivery Room Air 01/28/25 13:31 Temperature 36.7 C 01/28/25 13:31 Pulse Rate 88 01/28/25 13:31 Respiratory Rate 15 01/28/25 13:31 Blood Pressure 132/85 01/28/25 13:31 Pulse Oximetry 99 01/28/25 13:31 Oxygen Delivery Room Air 01/28/25 13:31 MDM - Back Pain/Injury MDM Narrative Medical decision making narrative: patient is a 39-year-old male with back pain and some rib pain after falling on a trampoline 3 weeks ago and now moving the house. We will get x-rays and give Toradol. Imaging Data Attestation: I personally reviewed and interpreted this imaging study as follows: Radiologist's impression: X-ray bilateral ribs and chest x-ray were negative for acute process x-ray thoracic spine was negative for acute process x-ray lumbar spine was negative for acute process Discharge Plan Discharge Clinical Impression: Sprain of thoracic region, Lumbago Patient Disposition: Home Condition: Stable Instructions: Back Pain (ED) Patient Language: [place] Citizen Prescriptions: New orphenadrine citrate 100 mg tablet extended release 100 mg PO BID PRN (Reason: pain) Qty: 20 0RF methylprednisolone [Medrol (Yariel)] 4 mg tablets,dose pack See Rx Instructions .ROUTE .COMPLEX Qty: 21 0RF Rx Instructions: orally per package directions No Action amoxicillin-pot clavulanate 875-125 mg tablet 1 tablet PO BID 10 Days Qty: 20 0RF clindamycin HCl 300 mg capsule 300 mg PO TID 10 Days Qty: 30 0RF ibuprofen 800 mg tablet 800 mg PO TID PRN (Reason: pain) Qty: 30 0RF clindamycin HCl 300 mg capsule 300 mg PO Q8H Qty: 20 0RF Follow-up/Referrals: Homar,MARYJANE Iraheta [Primary Care Provider] - Time of Disposition: 14:29
--- NOTE | 2025-01-28 13:45 | PC.NURSE ---
Patient taken down to radiology
[2025-01-28] MEDS: KETOROLAC (*BKC) 60 MG/2 ML VIAL IM (14:16)
[2025-01-28 14:37] VITALS: BP 123/84; PULSE 82; RESP 16; TEMP 36.7; O2SAT 98
--- OUTSIDE RECORDS SUMMARY | 2025-01-29 13:59 | XMS_ITS | Patient Health Record ---
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
--- OUTSIDE RECORDS SUMMARY | 2025-01-29 14:00 | XMS_ITS | Encounter Summary ---
Author Name [facility] [place] [facility] [place] Address [address] [place] [address] Care Team Providers Care Touch Up Carver Name Role Phone AARON KENNEDY Primary Care [...] Palacios's Name Patient's Relationship to Policy Palacios [facility] 2018 PRIME Sep 29, 2017 RETIREE [id number] CHERISERICK Bell PATIENT [facility] 2018 TRICA RE Sep 29, 2017 PRIME [id number] RICK CUMMINGS PATIENT Selected Encounter This section includes the information on record at CT for the Encounter. Date/Time Encounter Type Encounter [...] medical exam w/o abnormal findings JENNIFER KENNEDY Anibal GEIGER [facility] Mar 18, 2024 12:16 PM SECONDARY Adjustment disorder with depressed mood JENNIFER KENNEDY [facility] Mar 18, 2024 12:16 PM SECONDARY Arteriovenous malformation, site unspecified JENNIFER KENNEDY [facility] Mar 18, 2024 12:16 PM SECONDARY Pain in unspecified knee JENNIFER KENNEDY [facility] Mar 18, 2024 12:16 PM SECONDARY Tobacco use JENNIFER KENNEDY [facility] Mar 18, 2024 12:16 PM SECONDARY Vitamin D deficiency, unspecified JENNIFER KENNEDY [facility] Plan of Treatment: Future Appointments (+ 6 months) and Future Tests (+/- 45 days) The Plan of Treatment section includes future care activities for the patient from all CT treatmentfacilities. This section includes future appointments and future orders which are active, pending or scheduled. Future Appointments This section includes appointments that were scheduled to occur 6 months from the date of the Encounter, up to a maximum of 20 appointments. The data comes from all CT treatment facilities. Appointment Date/Time Appointment Type Appointme nt Facility Name Apr 30, 2024 08:30 AM AMBULATORY - SURGERY [facility] Lab Results: +/- 30 days of the encounter This section includes the Chemistry and Hematology Lab Results on record with CT for the patient. Radiology Reports and Pathology Reports are provided separately, in subsequent sections. Lab Results This section contains the Chemistry/Hematology Results that were resulted 30 days before or 30 daysafter the date of the Encounter. Date/Time Source Result Type Result - Unit Interpretation Reference Range Specimen Type Comment Mar 18, 2024 12:00 AM [facility] LIPID PANEL (STL) PLASMA Specimen Type: PLASMA Comment: No hemolysis noted. Ordering Provider: AARON KENNEDY Report Released Date/Time: Mar 18, 2024 10:55 AM Reporting Lab: [facility] [address] [address] Performing Lab: [facility] [address] [address] CHOLESTEROL 209 mg/dL H 0-200 TRIGLYCERIDE 247 mg/dL H 0-150 CALCULATED LDL 106 mg/dL HDL(New) 54 mg/dL >40 Mar 18, 2024 12:00 AM [facility] COMPREHENSIVE METABOLIC PANEL PLASMA Specimen Type: PLASMA Comment: No hemolysis noted. Ordering Provider: AARON KENNEDY Report Released Date/Time: Mar 18, 2024 10:55 AM Reporting Lab: [place] [address] [facility] [address] Performing Lab: [place] [address] [facility] [address] CREATININE 1.14 mg/dL 0.7-1.3 UREA NITROGEN 16.6 [...] 85.5 >60 Mar 18, 2024 12:00 AM [facility] HGA1C BLOOD Specimen Type: BLOOD No comment entered. Ordering Provider: AARON KENNEDY Report Released Date/Time: Mar 18, 2024 10:55 AM Reporting Lab: [place] [address] [facility] [address] Performing Lab: [place] [address] [facility] [address] HGA1C 5.5 4.0-6.0 Mar 18, 2024 12:00 AM [facility] TSH W/ REFLEX FT4 (STL) PLASMA Speci men Type: PLASMA No comment entered. Ordering Provider: AARON KENNEDY Report Released Date/Time: Mar 18, 2024 10:55 AM Reporting Lab: [address] [address] Performing Lab: [facility] [address] [address] TSH 0.605 u[IU]/mL 0.47-5 Mar 18, 2024 12:00 AM [facility] CBC BLOOD Specimen Type: BLOOD No comment entered. Ordering Provider: AARON KENNEDY Report Released Date/Time: Mar 18, 2024 10:55 AM Reporting Lab: [address] [address] Performing Lab: [address] [address] WBC 4.7 10*3/uL 3.6-11.2 RBC 4.62 10*6/uL 4.10-5.70 HGB 14.3 g/dL 13.1-16.8 HCT 42.9 38.2-48.4 MCV 92.9 fL 80.0-100.0 MCH 31.0 pg 27.0-34.0 MCHC 33.3 g/dL 33.0-36.0 PLT 237 10*3/uL 150-400 MPV 10.6 fL 7.5-11.2 RDW 12.2 11.8-15.1 LYMPHOCYTES, AUTO % 30 MONOCYTES, AUTO % 8 NEUTROPHILS, AUTO % 58 EOSINOPHILS, AUTO % 3 BASOPHILS, AUTO % 1 LYMPHOCYTES, ABSOLUTE 1.42 10*3/uL 0.77- 4.50 MONOCYTES, ABSOLUTE 0.38 10*3/uL 0.19-0. 80 NEUTROPHILS, ABSOLUTE 2.72 10*3/uL 2.10- 8.00 EOSINOPHILS, ABSOLUTE 0.13 10*3/uL 0.00- 0.60 BASOPHILS, ABSOLUTE 0.06 10*3/uL 0.00-0. 20 Mar 18, 2024 12:00 AM [facility] VITAMIN D, 25-HYDROXY SERUM Specimen Type: SE RUM No comment entered. Ordering Provider: AARON KENNEDY Report Released Date/Time: Mar 18, 2024 10:55 AM Reporting Lab: [address] [address] Performing Lab: [address] [address] VITAMIN D, 25-HYDROXY 35.9 ng/mL 30-96 Vital Signs: All taken on the encounter date This section contains inpatient and outpatient Vital Signs collected on the date of the Encounter. Date/Time Temperature Pulse Blood Pressure Respiratory Rate SP02 Pain Height Weight Body Mass Index Source Mar 18, 2024 10:28 AM 97.6 77 122/81 18 98 2 74 167.2 22 [facility] Social History: Smoking Status (Most current) and Tobacco Use (All prior to encounter date) This section includes the most current, and the historical, smoking and tobacco- related health factors from the CT facility where the Encounter took place. Current Smoking Status This section includes the most current smoking, or tobacco-related health factor, from the [place] facility where the Encounter took place. Date/Time Current Smoking Status Comment Facil ity Mar 18, 2024 10:30 AM VA-TOBACCO FORMER USER [facility] Tobacco Use History This section includes a history of the smoking, or tobacco-related health factors, that were collected on or before the date of the Encounter. The data comes from the CT facility where the Encounter took place. Date/Time Smoking Status/Tobacco Use Comment F acility Mar 18, 2024 10:30 AM VA-TOBACCO QUIT < 1 YEAR [facility] Mar 18, 2023 09:00 AM VA-TOBACCO DOESNT USE WI 30 MIN WAKEUP [facility] Mar 18, 2023 09:00 AM VA-TOBACCO USE 5 TO 15 YEARS [facility] Mar 18, 2023 09:00 AM VA-TOBACCO USE ADVICE [facility] Mar 18, 2023 09:00 AM VA-TOBACCO USE INSURANCE CHECKER NO [facility] Mar 18, 2023 09:00 AM VA-TOBACCO USE MED NO [facility] Mar 18, 2023 09:00 AM VA-TOBACCO USER EVERY DAY [facility] Encounter Notes: All associated encounter notes This section contains the clinical notes associated to the Encounter. Date/Time Encounter Note(s) Provider Source Mar 19, 2024 07:56 AM PHYSICIAN LETTERS: LOCAL TITLE: TEST RESULT GENERAL LETTER STL STANDARD TITLE: PHYSICIAN LETTERS DATE OF NOTE: MAR 19, 2024@07:56 ENTRY DATE: MAR 19, 2024@07:56:43 AUTHOR: AARON KENNEDY EXP COSIGNER: URGENCY: STATUS: COMPLETED [facility] [address] [place] [address] MAR 19, 2024 RICK CUMMINGS [address] [place], [place] [address] Dear Rick Cummings, I would like to [...] you have any questions please call your registered nurse hh case manager. I look forward to seeing you at your next clinic appointment. Thank you for choosing the [facility] for your healthcare. FUTURE APPOINTMENTS: 03/18/2025 10:30 [facility]E-N[facility] PACT 7 PCP Sincerely, AARON KENNEDY, MSN, AGNP-C NURSE PRACTITIONER RICK CUMMINGS JR, TAYLOR L [facility] Mar 18, 2024 10:49 AM PRIMARY CARE NOTE: LOCAL TITLE: PRIMARY CARE PROVIDER ESTABLISHED VISIT ST STANDARD TITLE: PRIMARY CARE NOTE DATE OF NOTE: MAR 18, 2024@10:49 ENTRY DATE: MAR 18, 2024@10:49:12 AUTHOR: AARON KENNEDY EXP COSIGNER: URGENCY: STATUS: COMPLETED ESTABLISHED PATIENT [facility] REASON FOR VISIT/CHIEF COMPLAINT: follow up HPI: [...] Congenital arteriovenous malformation comment: 12/2007 surgery in [place] 2) Tinnitus 3) Pneumonia, organism unspecified comment: August 2010, received pneumovax vaccine comment: 02/20/11 ru and l [place], [place] 4) Sleep disturbances 5) Cerebral aneurysm, nonruptured (ICD-9-CM 437.3) 6) Adjustment disorder with depressed mood (SNOMED CT 30278990) 7) Pain of joint of knee (SNOMED CT 5385082352) 8) Vitamin D Deficiency ([facility] 49110653) SURGICAL HISTORY: - aneurysm clip in 2007 [...] head without new findings. Will refer to CT neurosurgery clinic for follow-up regarding aneurysm. Based on the last note from his private neurosurgery clinic it was recommended the be seen again in 1 year. # Vit D Def: - Continue daily [id number] vitamin D3 supplement - Repeat labs. Will [...] Facility Reaction Info INFLUENZA, UNSPECIFIED FORMULATI* 08/03/2012 [facility] INFLUENZA, UNSPECIFIED FORMULATI* 06/05/2011 [facility] PNEUMOCOCCAL POLYSACCHARIDE PPV23 03/18/2023 [facility] TDAP 03/18/2023 [facility] TDAP [employer] REFUSED ======= Immunization Date Facility Info COVID-19 (PFIZER), MRNA, LNP-S, * 03/18/2023 [facility] <I> COVID-19 (PFIZER), MRNA, LNP-S, * 03/18/2024 No Site <I> clinical reminders completed; educated on continuing to avoid salt, conc sweets; benefits of continued exercise, reg PCP visits, routine eyes exams Plan of care has been discussed with including expected therapeutic benefits and potential side effects of prescribed medications and treatments. Current medication list has been reconciled with and updated accordingly. [place] was instructed to keep all scheduled appointments and to contact bilingual manager for any additional problems. verbalizes understanding [...] NURSE PRACTITIONER Signed: 03/18/2024 12:16 AARON KENNEDY [facility] Mar 18, 2024 10:44 AM NURSING [...] PRACTICAL NURSE Signed: 03/18/2024 10:48 AQUILES SALDIVAR [facility]
--- OUTSIDE RECORDS SUMMARY | 2025-01-29 14:02 | XMS_ITS | Continuity of Care Document ---
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 mg/dL 03/18 Specimen Type: PLASMA No comment entered. Ordering Provider: Nicanor KENNEDY Report Released Date/Time: Mar 18, 2023 09:16 AM Reporting Lab: [address] [address] Performing Lab: [address]. [address] [address] [facility] LIPID PANEL (STL) CHOLESTEROL IN HDL [MASS/VOLUM E] IN SERUM OR PLASMA 49 mg/dL 03/18 Specimen Type: PLASMA No comment entered. Ordering Provider: Nicanor KENNEDY Report Released Date/Time: Mar 18, 2023 09:16 AM Reporting Lab: [place] [phone] Performing Lab: [address] [phone] [place] [address] CBOC TSH (MA-PB-STL ) THYROTROPIN [UNITS/VOLU ME] IN SERUM OR PLASMA 0.921 u[IU]/ mL 0.47 - 5 03/18 Specimen Type: SERUM No comment entered. Ordering Provider: Nicanor KENNEDY Report Released Date/Time: Mar 18, 2023 09:16 AM Reporting Lab: [address] [address] Performing Lab: [address] [phone] [place] [address] CBOC COMPREHENS GUILLERMO METABOLIC PANEL CREATININE [MASS/VOLUM E] IN SERUM OR PLASMA 1.10 mg/dL 0.7 - 1.3 03/10 Specimen Type: PLASMA Comment: K result may show a positive bias due to hemolysis. Specimen slightly hemolyzed. Ordering Provider: NARINDER CARSON Report Released Date/Time: Mar 10, 2023 01:44 PM Reporting Lab: [address] [address] Performing Lab: [address] [phone] [place] [address] COMPREHENS GUILLERMO METABOLIC PANEL UREA NITROGEN [MASS/VOLUM E] IN SERUM OR PLASMA 8 mg/dL 9 - 25 03/10 L Specimen Type: PLASMA Comment: K result may show a positive bias due to hemolysis. Specimen slightly hemolyzed. Ordering Provider: NARINDER CARSON Report Released Date/Time: Mar 10, 2023 01:44 PM Reporting Lab: [facility] [address] [facility] [address] Performing Lab: [facility] [address] [address] [facility] COMPREHENS GUILLERMO METABOLIC PANEL GLUCOSE [MASS/VOLUM E] IN SERUM OR PLASMA 84 mg/dL 72 - 99 03/10 Specimen Type: PLASMA Comment: K result may show a positive bias due to hemolysis. Specimen slightly hemolyzed. Ordering Provider: NARINDER CARSON Report Released Date/Time: Mar 10, 2023 01:44 PM Reporting Lab: [facility] [address] [address] Performing Lab: [facility] [address] [address] [facility] COMPREHENS GUILLERMO METABOLIC PANEL SODIUM [MOLES/VOLU ME] IN SERUM OR PLASMA 142 meq/L 136 - 145 03/10 Specimen Type: PLASMA Comment: K result may show a positive bias due to hemolysis. Specimen slightly hemolyzed. Ordering Provider: NARINDER CARSON Report Released Date/Time: Mar 10, 2023 01:44 PM Reporting Lab: [facility] [address] [facility] [address] Performing Lab: [facility] [address] [address] [facility] COMPREHENS GUILLERMO METABOLIC PANEL POTASSIUM [MOLES/VOLU ME] IN SERUM OR PLASMA 4.4 meq/L 3.5 - 5 03/10 Specimen Type: PLASMA Comment: K result may show a positive bias due to hemolysis. Specimen slightly hemolyzed. Ordering Provider: NARINDER CARSON Report Released Date/Time: Mar 10, 2023 01:44 PM Reporting Lab: [facility] [address] [address] Performing Lab: [facility] [address] [address] [facility] COMPREHENS GUILLERMO METABOLIC PANEL CHLORIDE [MOLES/VOLU ME] IN SERUM OR PLASMA 107 meq/L 98 - 107 03/10 Specimen Type: PLASMA Comment: K result may show a positive bias due to hemolysis. Specimen slightly hemolyzed. Ordering Provider: NARINDER CARSON Report Released Date/Time: Mar 10, 2023 01:44 PM Reporting Lab: [place] [address] [facility] [address] Performing Lab: [place] [address] [facility] [facility] [phone] COMPREHENS GUILLERMO METABOLIC PANEL CARBON DIOXIDE, TOTAL [MOLES/VOLU ME] IN SERUM OR PLASMA 25 meq/L 22 - 31 03/10 Specimen Type: PLASMA Comment: K result may show a positive bias due to hemolysis. Specimen slightly hemolyzed. Ordering Provider: NARINDER CARSON Report Released Date/Time: Mar 10, 2023 01:44 PM Reporting Lab: [place] [address] [facility] [address] Performing Lab: [place] [address] [facility] [phone] [place] [address] COMPREHENS GUILLERMO METABOLIC PANEL CALCIUM [MASS/VOLUM E] IN SERUM OR PLASMA 9.1 mg/dL 8.4 - 10.4 03/10 Specimen Type: PLASMA Comment: K result may show a positive bias due to hemolysis. Specimen slightly hemolyzed. Ordering Provider: NARINDER CARSON Report Released Date/Time: Mar 10, 2023 01:44 PM Reporting Lab: [place] [address] [facility] [address] Performing Lab: [place] [address] [address] [facility] [address] [facility] COMPREHENS GUILLERMO METABOLIC PANEL PROTEIN [MASS/VOLUM E] IN SERUM OR PLASMA 6.9 g/dL 6 - 8.6 03/10 Specimen Type: PLASMA Comment: K result may show a positive bias due to hemolysis. Specimen slightly hemolyzed. Ordering Provider: NARINDER CARSON Report Released Date/Time: Mar 10, 2023 01:44 PM Reporting Lab: [place] [address] [facility] [address] Performing Lab: [place] [address] [facility] [address] [facility] COMPREHENS GUILLERMO METABOLIC PANEL ALBUMIN [MASS/VOLUM E] IN SERUM OR PLASMA 4.2 g/dL 3.4 - 5 03/10 Specimen Type: PLASMA Comment: K result may show a positive bias due to hemolysis. Specimen slightly hemolyzed. Ordering Provider: NARINDER CARSON Report Released Date/Time: Mar 10, 2023 01:44 PM Reporting Lab: [place] [address] [facility] [address] Performing Lab: [place] [address] [facility] [phone] COMPREHENS GUILLERMO METABOLIC PANEL BILIRUBIN.T OTAL [MASS/VOLUM E] IN SERUM OR PLASMA 0.5 mg/dL 0.2 - 1.2 03/10 Specimen Type: PLASMA Comment: K result may show a positive bias due to hemolysis. Specimen slightly hemolyzed. Ordering Provider: NARINDER CARSON Report Released Date/Time: Mar 10, 2023 01:44 PM Reporting Lab: [place] [address] [facility] [address] Performing Lab: [place] [address] [facility] [phone] [place] [address] COMPREHENS GUILLERMO METABOLIC PANEL ALKALINE PHOSPHATASE [ENZYMATIC ACTIVITY/VO LUME] IN SERUM OR PLASMA 83 U/L 40 - 150 03/10 Specimen Type: PLASMA Comment: K result may show a positive bias due to hemolysis. Specimen slightly hemolyzed. Ordering Provider: NARINDER CARSON Report Released Date/Time: Mar 10, 2023 01:44 PM Reporting Lab: [place] [address] [facility] [address] Performing Lab: [place] [address] [facility] [address] [facility] COMPREHENS GUILLERMO METABOLIC PANEL ASPARTATE AMINOTRANSF ERASE [ENZYMATIC ACTIVITY/VO LUME] IN SERUM OR PLASMA 31 U/L 5 - 34 03/10 Specimen Type: PLASMA Comment: K result may show a positive bias due to hemolysis. Specimen slightly hemolyzed. Ordering Provider: NARINDER CARSON Report Released Date/Time: Mar 10, 2023 01:44 PM Reporting Lab: [address] [address] Performing Lab: [address] [address] [facility] COMPREHENS GUILLERMO METABOLIC PANEL ALANINE AMINOTRANSF ERASE [ENZYMATIC ACTIVITY/VO LUME] IN SERUM OR PLASMA 33 U/L 8 - 40 03/10 Specimen Type: PLASMA Comment: K result may show a positive bias due to hemolysis. Specimen slightly hemolyzed. Ordering Provider: NARINDER CARSON Report Released Date/Time: Mar 10, 2023 01:44 PM Reporting Lab: [address] [address] Performing Lab: [address] [address] [facility] COMPREHENS GUILLERMO METABOLIC PANEL GLOMERULAR FILTRATION RATE/1.73 SQ M.PREDICTED [VOLUME RATE/AREA] IN SERUM, PLASMA OR BLOOD BY CREATININE- BASED FORMULA (CKD-EPI 2020) 89.8 03/10 Specimen Type: PLASMA Comment: K result may show a positive bias due to hemolysis. Specimen slightly hemolyzed. Ordering Provider: NARINDER CARSON Report Released Date/Time: Mar 10, 2023 01:44 PM Reporting Lab: [address] [address] Performing Lab: [place] [address] [facility] [address] [facility] Vital Signs Combined list of inpatient [...] ADM Date DC Date Status Disposition Source [facility]( art Team 1007) OUTPATIENT [id number] HARVEY BAPTISTE 07/08 Released with Work/Duty Limitations [facility]( Smart Team 1007) [facility] [place]( art Team 1007) OUTPATIENT [id number] lft knee pain MIKE FORD 07/22 Released with Work/Duty Limitations [facility] [place]( Smart Team 1007) [facility] Center(Pa litary Sick Call [facility] 237) OUTPATIENT [id number] L knee BEN BARNETT. 08/26 Released with Work/Duty Limitations [facility] [place]( [facility] Sick Call [facility] 237) [facility] [place](Pa litary Sick Call [facility] 237) OUTPATIENT [id number] left knee AARTI STOVER 09/15 Released w/o Limitations [facility] [place] [facility]( Militar y Sick Call [facility] 237) [facility](Pa litary Sick Call [place] [address]) OUTPATIENT [id number] pt c/o N/V. GUSTAVO SAMAYOA 09/16 Sick at Home/Quarter s [facility]( Militar y Sick Call [facility] 237) [facility](Pa litary Sick Call [place] [address]) OUTPATIENT [id number] f/u streap throat DARYASPRAMOD CHAUDHARY 10/03 Released w/o Limitations [facility]( Militar y Sick Call [facility] 237) [facility] [place] [facility](Pa [place]itary Sick Call [place] [address]) OUTPATIENT [id number] pt c/o left knee pain since bootcam p. AARTI STOVER 10/10 Released with Work/Duty Limitations [facility] [place] [address]([place]itary Sick Call [place] [address]) OUTPATIENT [id number] knee f/u AARTI STOVER 10/20 Released with Work/Duty Limitations [facility] [place] [address]) [facility] Sick Call [place] [address]) OUTPATIENT [id number] eval for ffd GUSTAVO SAMAYOA 10/24 Released with Work/Duty Limitations [facility] 237) [facility](Pa litary Sick Call [place] [address]) OUTPATIENT [id number] sore throat AARTI STOVER 10/29 Sick at Home/Quarter s [facility]( Militar y Sick Call [facility] 237) [facility] [place] [facility](Pa litary Sick Call [place] [address]) OUTPATIENT [id number] f/u strep AARTI STOVER 10/30 Released w/o Limitations [facility]( Militar y Sick Call [facility] 237) [facility](Pa litary Sick Call [place] [address]) OUTPATIENT [id number] f/u L knee AARTI STOVER 11/18 Released w/o Limitations [facility]( Militar y Sick Call [facility] 237) [facility](Ph ysical Therapy/2 37) OUTPATIENT [id number] JENIFFERBRET JACKSON Mahin 11/21 Released with Work/Duty Limitations [facility]( Physica l Therapy /237) [facility] [place] OUTPATIENT [id number] PHYSICA L GUSTAVO VALLE 03/19 Released w/o Limitations [facility] [place]( [facility]) [facility] [place]) OUTPATIENT [id number] RITCHIE JULES 03/19 Released w/o Limitations [facility] [place]( [place] [facility]) [facility] [place] OUTPATIENT [id number] KOMAL SYED 03/19 Released w/o Limitations [facility] [place]( [facility]) [facility] [place] [facility]) OUTPATIENT [id number] SUB PHYS TAMIA DRUMMOND 03/31 Released w/o Limitations [facility] [place]( [place] [facility]) [facility] [place]([facility] Immunizat ion) OUTPATIENT [id number] Immuniz ations SAM PIRES E 04/08 Released w/o Limitations [facility] [place]( [place] [facility]) [facility] [place]) OUTPATIENT [id number] SUB DUTY PE SIMON EDMONDSON 05/01 Released with Work/Duty Limitations [facility] [place]( [place] [facility]) [facility] [place]([facility]) OUTPATIENT [id number] mental health clearan ce SIMON EDMONDSON 07/14 Released with Work/Duty Limitations [facility] [place]( [place] [facility] [place]([facility]) OUTPATIENT [id number] R Hand injury LIZETH JENKINS 07/17 Released with Work/Duty Limitations [facility] [place]( [place] [facility]) [facility] [place](Immuniz ations [facility]) OUTPATIENT [id number] ppd/flu mist PASQUALE PLASCENCIA 08/28 Released w/o Limitations [facility](Imm unizati ons [facility] ) [facility](Immuniz ations [facility]) OUTPATIENT [id number] ppd read JAZZ DAVIS 08/31 Released w/o Limitations [facility](Imm unizati ons [facility] ) [facility] ER, [facility] [id number] ANA HANLEY Nicanor 01/15 RETURNED TO DUTY [facility](Nutriti on [facility]) INPATIENT [id number] CHIDI Sterling 01/19 Inpatient- Still a Patient [facility](Nut rition [facility]) [facility](Nutriti on [facility]) INPATIENT [id number] TF f/u CHIDI ROBERT 01/24 Inpatient- Still a Patient [facility](Nut rition [facility]) [facility](Infecti ous Disease [facility]) INPATIENT [id number] TETO GARCÍA 01/26 Inpatient- Still a Patient [facility](Inf ectious Disease [facility]) [facility](Nutriti on [facility]) INPATIENT [id number] TF f/u CHIDI ROBERT 01/27 Inpatient- Still a Patient [facility](Nut rition [facility]) [facility](Infecti ous Disease [facility]) INPATIENT [id number] ELIEL TANG 01/27 Inpatient- Still a Patient [facility](Inf ectious Disease [facility]) [facility](Cardiol ogy [facility]) INPATIENT [id number] LUZMARIA Gaming 01/28 Inpatient- Still a Patient [facility](Car diology [facility]) [facility](Social Work [facility]) INPATIENT [id number] Psycho- social assessm ent HECTOR DODGE 02/03 Inpatient- Still a Patient [facility](Soc ial Work [facility]) [facility] [place](Speech Pathology [facility]) INPATIENT [id number] Evaluat e for Ki Melba smith Valve ODALIS RODRIGUEZ H 02/07 Inpatient- Still a Patient [facility](Spe ech Patholo gy [facility]) [facility] [place] (Speech Pathology [facility]) INPATIENT [id number] AVM ODALIS RODRIGUEZ 02/08 Inpatient- Still a Patient [facility](Spe ech Patholo gy [facility]) [facility] INPATIENT [id number] ODALIS RODRIGUEZ 02/09 Inpatient- Still a Patient [facility] [place](Spe ech Patholo gy NM[facility]) [facility]) INPATIENT [id number] ODALIS RODRIGUEZ 02/10 Inpatient- Still a Patient [facility](Spe ech Patholo gy [facility]) [facility](Occ Therapy [facility]) INPATIENT [id number] [facility] JAZZ CARTER. 02/10 Inpatient- Still a Patient [facility](Occ Therapy [facility]) [facility](Occ Therapy [facility]) INPATIENT [id number] [facility] JAZZ CARTER. 02/14 Inpatient- Still a Patient [facility](Occ Therapy [facility]) [facility](Occ Therapy [facility]) INPATIENT [id number] [facility] JAZZ CARTER. 02/14 Inpatient- Still a Patient [facility](Occ Therapy [facility]) [facility](Nutriti on NMCP) INPATIENT [id number] YOLANDA CEDEÑO A 02/15 Inpatient- Still a Patient [facility](Nut rition NM[facility]) [facility]) INPATIENT [id number] [facility] JAZZ CARTER. 02/16 [facility]patient- [facility] [place](Occ Therapy NM[facility]) [facility](Speech [facility]ology [facility] INPATIENT [id number] Re assess Swallow functio n ODALIS RODRIGUEZ H 02/16 Inpatient- Still a Patient [facility] [place](Spe ech Patholo gy NM[facility]) [facility] [place](Occ Therapy [facility]) INPATIENT [id number] inp JAZZ Moe 02/16 Inpatient- Still a Patient [facility] [place](Occ Therapy NM[facility]) [facility] [place](Speech Pathology [facility]) INPATIENT [id number] ODALIS RODRIGUEZ H 02/16 Inpatient- Still a Patient [facility] [place](Spe ech Patholo gy NM[facility]) [facility] [place](Speech Pathology [facility]) INPATIENT [id number] Dysphag ia tx ODALIS RODRIGUEZ H 02/17 Inpatient- Detention Facility [facility] [place](Spe ech Patholo gy NM[facility]) [facility] [place](Case Managemen t [facility] [place]) OUTPATIENT [id number] CASE MANAGEM ENT LONG, IVANNA S 03/08 Released w/o Limitations [facility] [place](Dajuan e Managem ent [facility] [place] [facility] [place](Case Managemen t [facility] [place]) OUTPATIENT [id number] CASE MANAGEM ENT LONG, IVANNA S 03/09 Released w/o Limitations [facility] [place](Dajuan e Managem ent [facility] [place] [facility] [place](Case Mgmt Active Duty (AD)) OUTPATIENT [id number] CASE MANAGEM ENT LONG, IVANNA S 03/10 Released w/o Limitations [facility] [place](Dajuan e Mgmt Active Duty (AD)) [facility] [place](Case Mgmt Active Duty (AD)) OUTPATIENT [id number] LONG, IVANNA S 03/14 Released w/o Limitations [facility] [place](Dajuan e Mgmt Active Duty (AD)) [facility] [place](Case Mgmt Active Duty (AD)) OUTPATIENT [id number] CASE MANAGEM ENT LONG, IVANNA S 03/15 Released w/o Limitations [facility] [place](Dajuan e Mgmt Active Duty (AD)) [facility] [place](Case Managemen t [facility] [place]) OUTPATIENT [id number] CASE MANAGEM ENT LONG, IVANNA S 03/17 Released w/o Limitations [facility] [place](Dajuan e Managem ent [facility] [place] [facility] [place](Case Mgmt Active Duty (AD)) OUTPATIENT [id number] CASE MANAGEM ENT IVANNA CORTÉS S 03/18 Released w/o Limitations [facility] [place](Dajuan e Mgmt Active Duty (AD)) [facility] [place](Neurosu rgery NM[facility]) OUTPATIENT [id number] preangi o for 04/11/dc from [facility]/ne n leave BRUCEDEENAEN T 03/25 Released w/o Limitations [facility] [place](William rosurge ry NMCP) [facility] [place]([facility]) OUTPATIENT [id number] bump under R armpit x 3 days MARYLU HODGES 04/05 Released w/o Limitations [facility] [place]([facility] ) [facility] [place] DIRECT TO MTF FROM OTHER THAN ER OR [facility] [id number] EDUIN TORRES RACHEL 04/[address] [facility] [place](Neurosu [facility]gery [facility]) OUTPATIENT [id number] f/u after angiogr am 04/11 ANA HANLEY 04/14 Released w/o Limitations [facility] [place](William rosurge ry NMCP) [facility] [place] ADMISSION RESULTING FROM [facility], DIRECT TO MTF [id number] ANA HANLEY 04/[address] [facility] [place](Neurosu rgery [facility]) TELE CONSULT [id number] please call pt post surgery . Dr.Cobe brown, perform ed surgery 2 weeks ago. CHELSEA NEAL 05/06 [facility] [place](William rosurge ry NMCP) [facility] [place](Case Managemen t [facility] [place]) OUTPATIENT [id number] Case Managem ent IVANNA CORTÉS S 05/06 Released w/o Limitations [facility] [place](Dajuan e Managem ent [facility]) [facility] [place](Neurosu rgery NMCP) TELE CONSULT [id number] pt would like for you to call him back, did not give details as to why. CHELSEA NEAL 05/23 [facility](William rosurge ry NMCP) [facility] [place](Neurosu rgery NMCP) OUTPATIENT [id number] 1st post op f/u; no xrays ANA HANLEY 05/31 Released w/o Limitations [facility](William rosurge ry NMCP) [facility]) TELE CONSULT [id number] QUESTIO N FOR YOU CHELSEA NEAL 06/22 [facility](William rosurge ry NMCP) [facility] [place]([facility]) OUTPATIENT [id number] c/o hang nail ingrown on lt foot 3 wks ANUJ BONE 06/28 Released w/o Limitations [facility] ) [facility]urosu [facility]gery [facility]) TELE CONSULT [id number] Med board CHELSEA NEAL 07/22 [facility](William rosurge ry NMCP) [facility]urosu [facility]gery NM[facility]) TELE CONSULT [id number] Questio n CHELSEA NEAL 08/03 [facility](William rosurge ry NMCP) [facility](Case Mgmt Active Duty (AD)) OUTPATIENT [id number] Case Managem ent IVANNA CORTÉS S 08/16 Released w/o Limitations [facility](Dajuan e Mgmt Active Duty (AD)) [facility](Case [facility]mt Active Duty (AD)) OUTPATIENT [id number] Case Managem ent MOO, IVANNA S 08/17 Released w/o Limitations [facility](Dajuan e Mgmt Active Duty (AD)) [facility] [place](Case Mgmt Active Duty (AD)) OUTPATIENT [id number] Case Managem ent IVANNA CORTÉS S 08/18 Released w/o Limitations [facility] [place](Dajuan e Mgmt Active Duty (AD)) [facility] [place](Case Mgmt Active Duty (AD)) OUTPATIENT [id number] Case Managem ent IVANNA CORTÉS S 08/19 Released w/o Limitations [facility] [place](Dajuan e Mgmt Active Duty (AD)) [facility] [place]([facility]) OUTPATIENT [id number] poss strep throat 2 days. TAMIA BALTAZAR 08/26 Released w/o Limitations [facility] [place]([facility] ) [facility] [place]([facility]) OUTPATIENT [id number] sore throat, weaknes s x 8 days; already seen but not better DAKOTA MCCORMICK 09/01 Released w/o Limitations [facility] [place]([facility] ) [facility] [place]([facility] [place] [employer]) OUTPATIENT [id number] PAL MCLEOD 09/05 Released w/o Limitations [facility] [place](Hea ring Cons [facility] [employer]) [facility] [place](Immuniz ations [facility]) OUTPATIENT [id number] ppd/flu mist KAREEN ARMENDARIZ 09/05 Released w/o Limitations [facility] [place](Imm unizati ons [facility] ) [facility] [place](Case Mgmt Active Duty (AD)) OUTPATIENT [id number] Case Managem ent IVANNA CORTÉS S 09/05 Released w/o Limitations [facility] [place](Dajuan e Mgmt Active Duty (AD)) [facility] [place](Immuniz ations [facility] [place]) OUTPATIENT [id number] ppd check JESSICA SOSA 09/07 Released w/o Limitations [facility] [place](Imm unizati ons [facility] ) [facility] [place](Neurosu rgery [facility]) OUTPATIENT [id number] f/u EDUIN TORRES 10/04 Released with Work/Duty Limitations [facility] [place](William rosurge ry [facility]CP) [facility] [place] [place] OUTPATIENT [id number] part 2 [place] 10/06 Released w/o Limitations [facility] [place] [place]) [facility] [place](Neurosu rgery NMCP) TELE CONSULT [id number] DR. HANLEY PATIENT CHELSEA NEAL 10/20 [facility] [place](William rosurge ry NMCP) [facility] [place](Case Mgmt Active Duty (AD)) OUTPATIENT [id number] Case Managem ent IVANNA CORTÉS Neetu 10/26 Released w/o Limitations [facility] [place](Dajuan e Mgmt Active Duty (AD)) [facility] [place](Occ Therapy NMCP) OUTPATIENT [id number] AV TIAGOTE_MEREDITH SEN 10/26 Released w/o Limitations [facility] [place](Occ Therapy [facility]) [facility] [place](Occ Therapy [facility]) OUTPATIENT [id number] LILI MONTES 10/31 Released w/o Limitations [facility] [place](Occ Therapy [facility]) [facility] [place](Occ Therapy NM[facility]) OUTPATIENT [id number] PAULO CORTÉS 11/02 Released w/o Limitations [facility] [place](Occ Therapy NM[facility]) [facility] [place](Neurosu rgery NMCP) TELE CONSULT [id number] CHELSEA Bryan 11/04 [facility] [place](William rosurge ry NMCP) [facility] [place](Occ Therapy NMCP) OUTPATIENT [id number] PAULO CORTÉS 11/07 Released w/o Limitations [facility] [place](Occ Therapy [facility]) [facility] [place](Occ Therapy NM[facility]) OUTPATIENT [id number] LILI MONTES 11/09 Released w/o Limitations [facility] [place](Occ Therapy [facility]) [facility] [place](Neurosu rgery NMCP) OUTPATIENT [id number] EDUIN TORRES 11/10 Released with Work/Duty Limitations [facility] [place](William rosurge ry [facility]CP) [facility] [place]([facility]) OUTPATIENT [id number] Headach es since Sep 2008 DENISE BUSH 11/16 Released w/o Limitations [facility] [place]([facility] ) [facility] [place](Neurosu rgery NMCP) TELE CONSULT [id number] dr torres patient . HAN SHAH Radha 11/16 [facility] [place](William rosurge ry NMCP) [facility] [place](Occ Therapy NMCP) OUTPATIENT [id number] LILI MONTES 11/17 Released w/o Limitations [facility] [place](Occ Therapy NMCP) [facility] [place](Neurosu rgery NMCP) TELE CONSULT [id number] pt status post brain hemmora ge now having difficu lt painful swallow ing. SHAYNA SHAHNATY Garcia 11/21 [facility] [place](William rosurge ry NMCP) [facility] [place](Occ Therapy NMCP) OUTPATIENT [id number] LILI MONTES 11/21 Released w/o Limitations [facility] [place](Occ Therapy NMCP) [facility] [place](Case Mgmt Active Duty (AD)) OUTPATIENT [id number] Case Managem ent IVANNA CORTÉS 11/23 Released w/o Limitations [facility] [place](Dajuan e Mgmt Active Duty (AD)) [facility] [place](Occ Therapy NMCP) OUTPATIENT [id number] PAULO CORTÉS 11/23 Released w/o Limitations [facility] [place](Occ Therapy NMCP) [facility] OUTPATIENT [id number] H/A since Sep ZAINAB SHETH 11/24 Released w/o Limitations [facility] [place]([facility] ) [facility] [place](Occ Therapy NMCP) OUTPATIENT [id number] JOHN_MEREDITH SEN 11/25 Released w/o Limitations [facility] [place](Occ Therapy NMCP) [facility] [place](Case Mgmt Active Duty (AD)) OUTPATIENT [id number] Case Managem ent IVANNA CORTÉS S 12/26 Released w/o Limitations [facility] [place](Dajuan e Mgmt Active Duty (AD)) 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 LATONYA MARADIAGA 02/02 Released w/o Limitations [facility] [place] ) [facility] [place]([employer] Aqu[employer] NMCP) OUTPATIENT [id number] RENEE GREENWOOD 02/16 Released w/o Limitations [facility] [place](Phy s Ther [employer] NMCP) [facility] [place]([employer]) OUTPATIENT [id number] HARVEY KONG 02/24 Released w/o Limitations [facility] [place] ) [facility] [place](Case Mgmt Active Duty (AD)) OUTPATIENT [id number] Case Managem ent IVANNA CORTÉS S 02/24 Released w/o Limitations [facility] [place](Dajuan e Mgmt Active Duty (AD)) [facility] [place]([employer]) OUTPATIENT [id number] NORAH JIMENEZ V 02/28 Released w/o Limitations [facility] [place] [employer] ) [facility] [place]([employer]) OUTPATIENT [id number] HARVEY KONG 03/01 Released w/o Limitations [facility] [place] ) [facility] [place](Case Mgmt Active Duty (AD)) OUTPATIENT [id number] Case Managem ent IVANNA CORTÉS S 03/03 Released w/o Limitations [facility] [place](Dajuan e Mgmt Active Duty (AD)) [facility] [place]([employer]) OUTPATIENT [id number] HARVEY KONG 03/06 Released w/o Limitations [facility] [place]([facility] [employer] ) [facility] [place]([employer]) OUTPATIENT [id number] HARVEY KONG 03/13 Released w/o Limitations [facility] [place] [employer] ) [facility] [place]([employer]) OUTPATIENT [id number] NORAH JIMENEZ V 03/14 Released w/o Limitations [facility] [place]([facility] [employer] ) [facility] [place]([employer]) OUTPATIENT [id number] HARVEY KONG 03/15 Released w/o Limitations [facility] [place]([facility] [employer] ) [facility] [place]([employer]) OUTPATIENT [id number] NORAH JIMENEZ V 03/21 Released w/o Limitations [facility] [place]([facility] [employer] ) [facility] [place]([employer]) OUTPATIENT [id number] HARVEY KONG 03/27 Released w/o Limitations [facility] [place]([employer] ) [facility] [place]([employer]) OUTPATIENT [id number] ELVIA JEFFERS 04/12 Released w/o Limitations [facility] [place]([facility] [employer] ) [facility] [place]([employer]) OUTPATIENT [id number] ELVIA JEFFERS 04/14 Released w/o Limitations [facility] [place]([facility] [employer] ) [facility] [place](Case Mgmt Active Duty (AD)) OUTPATIENT [id number] Case Managem ent IVANNA CORTÉS S 04/17 Released w/o Limitations [facility] [place](Dajuan e Mgmt Active Duty (AD)) [facility] [place](Neurosu rgbanner NMCP) TELE CONSULT [id number] pt has shashank boucher medical board HAN SHAH Radha 05/22 [facility]William rosurge ry NMCP) [facility] [place](Neurosu rgery NMCP) OUTPATIENT [id number] f/u for med boards ANA HANLEY 05/24 Released w/o Limitations [facility] [place](William rosurge ry NMCP) [facility] [place](Case Mgmt Active Duty (AD)) OUTPATIENT [id number] Case Managem ent IVANNA CORTÉS S 05/29 Released w/o Limitations [facility] [place](Dajuan e Mgmt Active Duty (AD)) [facility] [place]([facility] [place] [facility]) OUTPATIENT [id number] CHRIS Bartholomew S 06/01 Released w/o Limitations [facility]Phy [facility] [place] [facility]) [facility] [place](Hearing [employer]) OUTPATIENT [id number] SIDNEY DICKERSON 06/01 Released w/o Limitations [facility](Hea ring Cons [place] [employer]) [facility]Mil [facility] [place]) OUTPATIENT [id number] sore throat x 4 days MEREDITH PAGE 06/16 Sick at Home/Quarter s [facility] ) [facility] [place](Neurosu rgery NMCP) TELE CONSULT [id number] bruce fontenot. would like to discuss med board. info cnt#[id number] [id number] ÁNGEL CHELSEA L 06/23 [facility](William rosurge ry NMCP) [facility] [place] (Case Mgmt Active Duty (AD)) OUTPATIENT [id number] Case Managem ent IVANNA CORTÉS S 08/01 Released w/o Limitations [facility] [place](Dajuan e Mgmt Active Duty (AD)) [facility] [place] [facility] [place]) OUTPATIENT [id number] RIGHT WRIST PAIN ZAINAB SHETH T 08/02 Released w/o Limitations [facility] [place]([facility] [place] ) [facility] [place](Optomet ry [place]) OUTPATIENT [id number] eye exam DOROTHY SUH NMN 08/04 Released w/o Limitations [facility](Opt ometry [place]) [facility](Immuniz ation NMCP) OUTPATIENT [id number] Adult Imms - Flumist LISA PRASAD N P 08/17 Released w/o Limitations [facility](Imm unizati on NMCP) [facility](Neurosu rgery NMCP) TELE CONSULT [id number] Dr.Cobe brown pt. Mrs. Harvey rubio of Med Boards request ing consult for pt. 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 [employer]) OUTPATIENT [id number] TAMIA CARMONA 09/05 Released w/o Limitations [facility](Phy s Ther NMPS) [facility](Occ Therapy NMCP) OUTPATIENT [id number] AVM bleed PAL NIEVES 09/12 Released w/o Limitations [facility](Occ Therapy NMCP) [facility](Case Mgmt Active Duty (AD)) OUTPATIENT [id number] Case Managem ent IVANNA CORTÉS 09/21 Released w/o Limitations [facility](Dajuan e Mgmt Active Duty (AD)) [facility] OUTPATIENT [id number] UPDATE LIMITED PROFILE FOR ZAINAB JACOME 11/01 Released w/o Limitations [facility] [place] ) [facility](Immuniz ations [facility]) OUTPATIENT [id number] VACCINE S WILTON SILVA 11/15 Released w/o Limitations [facility] ) [facility](Immuniz ations [facility]) OUTPATIENT [id number] vaccine JESSICA SOSA 11/21 Released w/o Limitations [facility](Imm unizati ons [facility] ) [facility]([place] Scre[place]) OUTPATIENT [id number] MEDICAL ASSIGNM ENT SCREEN (STANDB Y) KERRI TREJO 11/24 Released w/o Limitations [facility](Ove rseas Screeni ng [place] ) [facility]) OUTPATIENT [id number] Pain in tonsils /throat , hot flashes IRENE FERGUSON 11/28 Released w/o Limitations [facility] ) [facility](Neurosu rgery NMCP) TELE CONSULT [id number] pt's CO would like to speak with Dr Hanley [phone] CHELSEA NEAL 11/30 [facility](William rosurge ry NMCP) [facility](Neurosu rgery NMCP) OUTPATIENT [id number] f/u ANA HANLEY 12/01 Released w/o Limitations [facility](William rosurge ry NMCP) [facility](Primary Care Clinic [facility]) OUTPATIENT [id number] R MAGAÑA PAIN ZAINAB SHETH T 12/05 Released w/o Limitations [facility] ) [facility](Case Mgmt Active Duty (AD)) OUTPATIENT [id number] Case Managem ent LONG, IVANNA S 12/15 Released w/o Limitations [facility](Dajuan e Mgmt Active Duty (AD)) [facility](Immuniz ations [facility]) OUTPATIENT [id number] vaccine CIERA FOREMAN 01/09 Released w/o Limitations [facility](Imm unizati ons [facility] ) [facility]) OUTPATIENT [id number] Chest Pain EMMA WHALEY EDWARD 01/17 Released w/o Limitations [facility] ) [facility]) OUTPATIENT [id number] Injured right foot during PT x 5 days AYAD JEAN Son 02/21 Released w/o Limitations [facility] ) [facility](Primary Care [facility]) OUTPATIENT [id number] f/u xray results ZAINAB SHETH 03/06 Released w/o Limitations [facility] ) [facility](Neurosu afshin DECP) TELE CONSULT [id number] Dr Hanley Pt . needs form stating he can fly. Pt leaving for [place] on 7-6 ÁNGELCHELSEA DEVI 03/26 [facility](William rosurge ry NMCP) [facility]) OUTPATIENT [id number] sore throat EMMA WHALEY EDWARD 03/28 Released w/o Limitations [facility] ) [facility]) OUTPATIENT [id number] seen yesterd ay for sorethr oat today throat is worse BRENT HARRISON 03/29 Released w/o Limitations [facility] ) [facility](Immuniz ations [facility]) OUTPATIENT [id number] vaccine JAZZ DAVIS 05/09 Released w/o Limitations [facility](Imm unizati ons [facility] ) [facility](Primary Care Clinic [facility]) OUTPATIENT [id number] R FOOT EVALUAT ION ZAINAB SHETH 05/15 Released w/o Limitations [facility] ) [facility](Immuniz ations [facility]) OUTPATIENT [id number] vaccine KAREEN ARMENDARIZ 05/21 Released w/o Limitations [facility](Imm unizati ons [facility] [place] ) [facility](Phys Exam [place] [facility]) OUTPATIENT [id number] SEPARAT ION PHYSICA L 724689 CHRIS CHONG 05/22 Released w/o Limitations [facility](Phy s Exam [place] [facility]) [facility](Neurosu rgery NMCP) TELE CONSULT [id number] Pt c/o of more frequen t paralys is, since surgery . 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 HAN SHAH 08/01 [facility](William rosurge ry NMCP) [facility] OFFICE O/P EST MOD 30 MIN [id number] Diagnos is: ICD-10- CM G40.89 Other seizure s Radha OSBORNE 10/07 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, site unspeci luised HARI CALLEJAS 12/29 [facility] Outpatient Encounter [id number] 03/16 [facility] Outpatient Encounter [id number] CHRISTINE SALDIVAR 03/18 [facility] OFFICE O/P EST LOW 20 MIN [id number] Diagnos is: ICD-10- CM Z00.00 Encntr for general adult medical exam w/o abnorma l finding s BRENT,Nicanor FAM L 03/18 [facility] Outpatient Encounter [id number] 04/07 [facility] Outpatient Encounter [id number] 07/13 [facility] Outpatient Encounter [id number] 09/09 [facility] Procedures Combined list of: 1) Procedures from Department of Veterans Affairs facilities going back up to thelast 18 months, not all [place] non-surgical procedures are included; 2) All procedures from the Department of Defense facilities. Procedure Procedure Type Code Date Perfomer Comments Sourc e THERAPEUTIC PROCEDURE, 1 OR MORE AREAS, EACH 15 MINUTES; THERAPEUTIC EXERCISES TO DEVELOP STRENGTH AND ENDURANCE, RANGE OF MOTION AND FLEXIBILITY 2006 [facility] BUPRENORPHINE IMPLANT, 74.2 MG 2006 [facility] INDIVIDUAL PSYCHOTHERAPY, INSIGHT ORIENTED, BEHAVIOR MODIFYING AND/OR SUPPORTIVE, IN AN OFFICE OR OUTPATIENT FACILITY, APPROXIMATELY 20 TO 30 MINUTES [id number] WITH THE PATIENT 2006 [facility] PSYCHOLOGICAL TSTING (INCL PSYCHODIAG ASSESSMNT, EMOTITY, INTELLECTUAL ABILITIES, PERSONALITY &PSYCHOPATHOLOGY, EG, MMPI), ADMINISTERED COMPUTER, W QUALIFIED HEALTH SHOT PEEN OPERATOR INTERPRET &RPT 2006 [facility] PSYCHIATRIC DIAGNOSTIC INTERVIEW EXAMINATION 2006 [facility] THERAPEUTIC PROCEDURE, 1 OR MORE AREAS, EACH 15 MINUTES; THERAPEUTIC EXERCISES TO DEVELOP STRENGTH AND ENDURANCE, RANGE OF MOTION AND FLEXIBILITY 2005 [facility] ORAL THERMOMETER, REUSABLE, ANY TYPE, EACH 2005 [facility] TYPHOID VACCINE, CAPSULAR POLYSACCHARIDE (VICPS), FOR INTRAMUSCULAR USE 2005 [facility] BUPRENORPHINE IMPLANT, 74.2 MG 2005 [facility] SCREENING TEST OF VISUAL ACUITY, QUANTITATIVE, BILATERAL 2005 [facility] AUDIOMETRIC TESTING OF GROUPS 2005 [facility] SKIN TEST; TUBERCULOSIS, INTRADERMAL 2005 [facility] INDIVIDUAL PSYCHOTHERAPY, INSIGHT ORIENTED, BEHAVIOR MODIFYING AND/OR SUPPORTIVE, IN AN OFFICE OR OUTPATIENT FACILITY, APPROXIMATELY 20 TO 30 MINUTES [id number] WITH THE PATIENT 2006 [facility] PSYCHIATRIC DIAGNOSTIC INTERVIEW EXAMINATION 2006 [facility] IMMUNIZATION ADMINISTRATION (INCLUDES PERCUTANEOUS, INTRADERMAL, SUBCUTANEOUS, OR INTRAMUSCULAR INJECTIONS); 1 VACCINE (SINGLE OR COMBINATION VACCINE/TOXOID) 2006 [facility] PURE TONE AUDIOMETRY (THRESHOLD); AIR ONLY 2006 [facility] DETERMINATION OF REFRACTIVE STATE 2006 [facility] SKIN TEST; TUBERCULOSIS, INTRADERMAL 2009 [facility] SKIN TEST; TUBERCULOSIS, INTRADERMAL 2009 [facility] ELECTROCARDIOGRAM, ROUTINE ECG WITH AT LEAST 12 LEADS; WITH INTERPRETATION AND REPORT 2009 [facility] SKIN TEST; TUBERCULOSIS, INTRADERMAL 2009 [facility] CASE MANAGEMENT, EACH 15 MINUTES 2009 [facility] IMMUNIZATION ADMINISTRATION (INCLUDES PERCUTANEOUS, INTRADERMAL, SUBCUTANEOUS, OR INTRAMUSCULAR INJECTIONS); EACH ADDITIONAL VACCINE (SINGLE OR COMBINATION VACCINE/TOXOID) 2009 [facility] CASE MANAGEMENT, EACH 15 MINUTES 2008 [facility] OCCUPATIONAL THERAPY EVALUATION 2008 [facility] [facility] PHYSICAL THERAPY RE-EVALUATION 2008 [facility] INFLUENZA VIRUS VACCINE, TRIVALENT, LIVE (LAIV3), FOR INTRANASAL USE 2008 [facility] FITTING OF SPECTACLES, EXCEPT FOR APHAKIA; MONOFOCAL 2008 DoD COORDINATED CARE FEE, RISK ADJUSTED MAINTENANCE, LEVEL 4 2008 [facility] HANDLING AND/OR CONVEYANCE OF SPECIMEN FOR TRANSFER FROM THE OFFICE TO A LABORATORY 2008 [facility] SCREENING TEST, PURE TONE, AIR ONLY 2008 DoD COORDINATED CARE FEE, RISK ADJUSTED MAINTENANCE, LEVEL 4 2008 DoD COORDINATED CARE FEE, RISK ADJUSTED MAINTENANCE, LEVEL 4 2008 [facility] THERAPEUTIC PROCEDURE, 1 OR MORE AREAS, EACH 15 MINUTES; THERAPEUTIC EXERCISES TO DEVELOP STRENGTH AND ENDURANCE, RANGE OF MOTION AND FLEXIBILITY 2008 [facility] THERAPEUTIC PROCEDURE, 1 OR MORE AREAS, EACH 15 MINUTES; THERAPEUTIC EXERCISES TO DEVELOP STRENGTH AND ENDURANCE, RANGE OF MOTION AND FLEXIBILITY 2008 [facility] SELF-CARE/HOME MANAGMENT TRAIN (EG,ACT OF DAILY LIVING [...] MINUTES; AQUATIC THERAPY WITH THERAPEUTIC EXERCISES 2008 [facility] PHYSICAL THERAPY EVALUATION 2008 DoD COORDINATED CARE FEE, RISK ADJUSTED MAINTENANCE, LEVEL 4 2008 DoD CASE MANAGEMENT, EACH 15 MINUTES 2008 [facility] OCCUPATIONAL THERAPY RE-EVALUATION 2008 Do[facility] THERAPEUTIC ACTIVITIES, [...] WISC CARD SORT TST),/HR OF PSYCHOLOGIST/PHYS TIME,BOTH [id number] ADMIN TST TO PAT & TIME INTERP [...] WISC CARD SORT TST),/HR OF PSYCHOLOGIST/PHYS TIME,BOTH [id number] ADMIN TST TO PAT & TIME INTERP TEST RES & PREP RPT 2008 [facility] THERAPEUTIC PROCEDURE, 1 OR MORE AREAS, EACH 15 MINUTES; THERAPEUTIC EXERCISES TO DEVELOP STRENGTH AND ENDURANCE, RANGE OF MOTION AND FLEXIBILITY 2008 DoD COORDINATED CARE FEE, RISK ADJUSTED MAINTENANCE, LEVEL 3 2008 [facility] UNLISTED SPECIAL SERVICE, PROCEDURE OR REPORT 2008 [facility] PSYCHOLOGICAL TSTING (INCL PSYCHODIAG ASSESSMNT, EMOTITY, INTELLECTUAL ABILITIES, PERSONALITY &PSYCHOPATHOLOGY, EG, MMPI), ADMINISTERED COMPUTER, W QUALIFIED HEALTH SHOT PEEN OPERATOR INTERPRET &RPT 2008 [facility] PSYCHIATRIC DIAGNOSTIC INTERVIEW EXAMINATION 2008 [facility] SCREENING TEST OF VISUAL ACUITY, QUANTITATIVE, BILATERAL 2008 [facility] COORDINATED CARE FEE, RISK ADJUSTED MAINTENANCE, LEVEL 3 2007 [facility] IMMUNIZATION ADMINISTRATION BY INTRANASAL OR ORAL ROUTE; 1 VACCINE (SINGLE OR COMBINATION VACCINE/TOXOID) 2007 [facility] AUDIOMETRIC TESTING OF GROUPS 2007 [facility] COLLECTION OF VENOUS BLOOD BY VENIPUNCTURE 2007 [facility] HANDLING AND/OR CONVEYANCE OF SPECIMEN FOR TRANSFER FROM THE OFFICE TO A LABORATORY 2007 DoD CASE MANAGEMENT, EACH 15 MINUTES 2007 DoD CASE MANAGEMENT, EACH 15 MINUTES 2007 DoD CASE MANAGEMENT, EACH 15 MINUTES 2007 DoD COORDINATED CARE FEE, RISK ADJUSTED MAINTENANCE 2007 DoD CASE MANAGEMENT, EACH 15 MINUTES 2007 [facility] OTHER EXCISION OR DESTRUCTION OF LESION OR TISSUE OF BRAIN 2007 [facility] COMPUTERIZED AXIAL TOMOGRAPHY OF HEAD 2007 [facility] ARTERIOGRAPHY OF CEREBRAL ARTERIES 2007 [facility] OTHER CRANIECTOMY 2007 DoD POSTOPERATIVE FOLLOW-UP VISIT, NORMALLY INCLUDED IN THE SURGICAL PACKAGE, INDICATE THAT EVALUATION & MANAGEMENT SERVICE WAS PERFORMED DURING A POSTOPERATIVE PERIOD REASON RELATED ORIGINAL PROCEDURE 2007 [facility] SELF-CARE/HOME MANAGMENT TRAIN (EG,ACT OF DAILY LIVING (ADL) &COMPENSAT TRAIN,MEAL PREPARATION,SAFETY PROCS,AND INSTRUCT IN USE OF ASST TECHNOLOGY DEV/ADPT EQUIP) DIR ONE-ON-ONE CONT,EA 15 MINUTES 2007 [facility] POSTOPERATIVE FOLLOW-UP VISIT, NORMALLY INCLUDED IN THE SURGICAL PACKAGE, INDICATE THAT EVALUATION & MANAGEMENT SERVICE WAS PERFORMED DURING A POSTOPERATIVE PERIOD REASON RELATED ORIGINAL PROCEDURE 2007 [facility] SURGERY OF INTRACRANIAL ARTERIOVENOUS MALFORMATION; SUPRATENTORIAL, SIMPLE 2007 Do[facility] UNLISTED SPECIAL SERVICE, PROCEDURE OR REPORT 2007 DoD CASE MANAGEMENT, EACH 15 MINUTES 2007 DoD CASE MANAGEMENT, EACH 15 MINUTES 2007 DoD CASE MANAGEMENT, EACH 15 MINUTES 2007 DoD CASE MANAGEMENT, EACH 15 MINUTES 2007 DoD CASE MANAGEMENT, EACH 15 MINUTES 2007 DoD CASE MANAGEMENT, EACH 15 MINUTES 2007 DoD TEMPORARY TRACHEOSTOMY 02/17 [facility] CLOSED [ENDOSCOPIC] BIOPSY OF BRONCHUS 2007 [facility] VENOUS CATHETERIZATION, NOT ELSEWHERE CLASSIFIED 2007 [facility] PERCUTANEOUS [ENDOSCOPIC] GASTROSTOMY [PEG] 2007 [facility] COMPUTERIZED AXIAL TOMOGRAPHY OF HEAD 2007 [facility] COMPUTERIZED AXIAL TOMOGRAPHY OF THORAX 2007 [facility] COMPUTERIZED AXIAL TOMOGRAPHY OF ABDOMEN 2007 [facility] ARTERIOGRAPHY OF CEREBRAL ARTERIES 2007 [facility] DIAGNOSTIC ULTRASOUND OF HEART 2007 [facility] OTHER DIAGNOSTIC ULTRASOUND 2007 [facility] RESPIRATORY MEDICATION ADMINISTERED BY NEBULIZER 2007 [facility] OTHER OXYGEN ENRICHMENT 01/28 [facility] INSERTION OF ENDOTRACHEAL TUBE 2007 [facility] OTHER LAVAGE OF BRONCHUS AND TRACHEA 2007 [facility] ENTERAL INFUSION OF CONCENTRATED NUTRITIONAL SUBSTANCES 2007 [facility] CONTINUOUS MECHANICAL VENTILATION FOR 96 CONSECUTIVE HOURS OR MORE 2007 [facility] INJECTION OF ANTICOAGULANT 2007 [facility] INJECTION OF ANTIBIOTIC 01/28 [facility] OTHER INCISION OF BRAIN 01/28 [facility] VENTRICULOSTOMY 2007 [facility] TREATMENT OF SWALLOWING DYSFUNCTION AND/OR ORAL FUNCTION FOR FEEDING 2007 [facility] POSTOPERATIVE FOLLOW-UP VISIT, NORMALLY INCLUDED IN THE SURGICAL PACKAGE, INDICATE THAT EVALUATION & MANAGEMENT SERVICE WAS PERFORMED DURING A POSTOPERATIVE PERIOD REASON RELATED ORIGINAL PROCEDURE 2007 [facility] THERAPEUTIC PROCEDURE,1 OR MORE AREAS,EACH 15 MINUTES;NEUROMUSCULAR REEDUCATION OF MOVEMENT,BALANCE,COORDI NATION,KINESTHETIC SENSE,POSTURE,AND/OR PROPRIOCEPTION FOR SITTING AND/OR STANDING ACTIVITIES 2007 [facility] TREATMENT OF SWALLOWING DYSFUNCTION AND/OR ORAL FUNCTION FOR FEEDING 2007 [facility] THERAPEUTIC PROCEDURE, 1 OR MORE AREAS, EACH 15 MINUTES; GAIT TRAINING (INCLUDES STAIR CLIMBING) 2007 [facility] POSTOPERATIVE FOLLOW-UP VISIT, NORMALLY INCLUDED IN THE SURGICAL PACKAGE, INDICATE THAT EVALUATION & MANAGEMENT SERVICE WAS PERFORMED DURING A POSTOPERATIVE PERIOD REASON RELATED ORIGINAL PROCEDURE 2007 [facility] SELF-CARE/HOME MANAGMENT TRAIN (EG,ACT OF DAILY LIVING (ADL) &COMPENSAT TRAIN,MEAL PREPARATION,SAFETY PROCS,AND INSTRUCT IN USE OF ASST TECHNOLOGY DEV/ADPT EQUIP) DIR ONE-ON-ONE CONT,EA 15 MINUTES 2007 [facility] THERAPEUTIC PROCEDURE, 1 OR MORE AREAS, EACH 15 MINUTES; GAIT TRAINING (INCLUDES STAIR CLIMBING) 2007 [facility] MEDICAL NUTRITION THERAPY; RE-ASSESSMENT AND INTERVENTION, INDIVIDUAL, [id number] WITH THE PATIENT, EACH 15 MINUTES 2007 [facility] SELF-CARE/HOME MANAGMENT TRAIN (EG,ACT OF DAILY LIVING (ADL) &COMPENSAT TRAIN,MEAL PREPARATION,SAFETY PROCS,AND INSTRUCT IN USE OF ASST TECHNOLOGY DEV/ADPT EQUIP) DIR ONE-ON-ONE CONT,EA 15 MINUTES 2007 [facility] THERAPEUTIC ACTIVITIES, DIRECT (ONE-ON-ONE) PATIENT CONTACT (USE OF DYNAMIC ACTIVITIES TO IMPROVE FUNCTIONAL PERFORMANCE), EACH 15 MINUTES 2007 [facility] POSTOPERATIVE FOLLOW-UP VISIT, NORMALLY INCLUDED IN THE SURGICAL PACKAGE, INDICATE THAT EVALUATION & MANAGEMENT SERVICE WAS PERFORMED DURING A POSTOPERATIVE PERIOD REASON RELATED ORIGINAL PROCEDURE 2007 [facility]D POSTOPERATIVE FOLLOW-UP VISIT, NORMALLY INCLUDED IN THE SURGICAL PACKAGE, INDICATE THAT EVALUATION & MANAGEMENT SERVICE WAS PERFORMED DURING A POSTOPERATIVE PERIOD REASON RELATED ORIGINAL PROCEDURE 2007 [facility] PHYSICAL THERAPY RE-EVALUATION 2007 [facility]D POSTOPERATIVE FOLLOW-UP VISIT, NORMALLY INCLUDED IN THE SURGICAL PACKAGE, INDICATE THAT EVALUATION & MANAGEMENT SERVICE WAS PERFORMED DURING A POSTOPERATIVE PERIOD REASON RELATED ORIGINAL PROCEDURE 2007 [facility] THERAPEUTIC ACTIVITIES, DIRECT (ONE-ON-ONE) PATIENT CONTACT (USE OF DYNAMIC ACTIVITIES TO IMPROVE FUNCTIONAL PERFORMANCE), EACH 15 MINUTES 2007 [facility] TREATMENT OF SWALLOWING DYSFUNCTION AND/OR ORAL FUNCTION FOR FEEDING 2007 [facility]D POSTOPERATIVE FOLLOW-UP VISIT, NORMALLY INCLUDED IN THE SURGICAL PACKAGE, INDICATE THAT EVALUATION & MANAGEMENT SERVICE WAS PERFORMED DURING A POSTOPERATIVE PERIOD REASON RELATED ORIGINAL PROCEDURE 2007 [facility] THERAPEUTIC ACTIVITIES, DIRECT (ONE-ON-ONE) PATIENT CONTACT (USE OF DYNAMIC ACTIVITIES TO IMPROVE FUNCTIONAL PERFORMANCE), EACH 15 MINUTES 2007 [facility] THERAPEUTIC PROCEDURE, 1 OR MORE AREAS, EACH 15 MINUTES; THERAPEUTIC EXERCISES TO DEVELOP STRENGTH AND ENDURANCE, RANGE OF MOTION AND FLEXIBILITY 2007 [facility] TREATMENT OF SWALLOWING DYSFUNCTION AND/OR ORAL FUNCTION FOR FEEDING 2007 [facility] POSTOPERATIVE FOLLOW-UP VISIT, NORMALLY INCLUDED IN THE SURGICAL PACKAGE, INDICATE THAT EVALUATION & MANAGEMENT SERVICE WAS PERFORMED DURING A POSTOPERATIVE PERIOD REASON RELATED ORIGINAL PROCEDURE 2007 [facility] POSTOPERATIVE FOLLOW-UP VISIT, NORMALLY INCLUDED IN THE SURGICAL PACKAGE, INDICATE THAT EVALUATION & MANAGEMENT SERVICE WAS PERFORMED DURING A POSTOPERATIVE PERIOD REASON RELATED ORIGINAL PROCEDURE 2007 [facility] THERAPEUTIC ACTIVITIES, DIRECT (ONE-ON-ONE) PATIENT CONTACT (USE OF DYNAMIC ACTIVITIES TO IMPROVE FUNCTIONAL PERFORMANCE), EACH 15 MINUTES 2007 [facility] TREATMENT OF SPEECH, LANGUAGE, VOICE, COMMUNICATION, AND/OR AUDITORY PROCESSING DISORDER; INDIVIDUAL 2007 [facility] MEDICAL NUTRITION THERAPY; RE-ASSESSMENT AND INTERVENTION, INDIVIDUAL, [id number] WITH THE PATIENT, EACH 15 MINUTES 2007 [facility] OCCUPATIONAL THERAPY EVALUATION 2007 [facility] THERAPEUTIC ACTIVITIES, DIRECT (ONE-ON-ONE) PATIENT CONTACT (USE OF DYNAMIC ACTIVITIES TO IMPROVE FUNCTIONAL PERFORMANCE), EACH 15 MINUTES 2007 [facility] TRACHEOSTOMY SPEAKING VALVE 2007 [facility] POSTOPERATIVE FOLLOW-UP VISIT, NORMALLY INCLUDED IN THE SURGICAL PACKAGE, INDICATE THAT EVALUATION & MANAGEMENT SERVICE WAS PERFORMED DURING A POSTOPERATIVE PERIOD REASON RELATED ORIGINAL PROCEDURE 2007 [facility] PHYSICAL THERAPY EVALUATION 2007 [facility] TRACHEOSTOMY SPEAKING VALVE 2007 [facility] POSTOPERATIVE FOLLOW-UP VISIT, NORMALLY INCLUDED IN THE SURGICAL PACKAGE, INDICATE THAT EVALUATION & MANAGEMENT SERVICE WAS PERFORMED DURING A POSTOPERATIVE PERIOD REASON RELATED ORIGINAL PROCEDURE 2007 [facility] PHYSICAL THERAPY EVALUATION 2007 [facility] HEALTH&BEHAV ASSESSMENT (EG, HEALTH-FOC CLINICAL INTERVIEW, BEHAVIORAL OBSERVATIONS, PSYCHOPHYSICOLOGICAL MONITOR, HEALTH-ORIENT QUESTIONNAIRES), EA 15 MIN [id number] W THE PATIENT; INIT ASSESSMENT 2007 [facility] MEDICAL NUTRITION THERAPY; RE-ASSESSMENT AND INTERVENTION, INDIVIDUAL, [id number] WITH THE PATIENT, EACH 15 MINUTES 2007 [facility] INSERTION OF GASTROSTOMY TUBE, PERCUTANEOUS, UNDER FLUOROSCOPIC GUIDANCE INCLUDING CONTRAST INJECTION(S), IMAGE DOCUMENTATION AND REPORT 2007 [facility] MEDICAL NUTRITION THERAPY; RE-ASSESSMENT AND INTERVENTION, INDIVIDUAL, [id number] WITH THE PATIENT, EACH 15 MINUTES 2007 [facility] MEDICAL NUTRITION THERAPY; RE-ASSESSMENT AND INTERVENTION, INDIVIDUAL, [id number] WITH THE PATIENT, EACH 15 MINUTES 2007 [facility] POSTOPERATIVE FOLLOW-UP VISIT, NORMALLY INCLUDED IN THE SURGICAL PACKAGE, INDICATE THAT EVALUATION & MANAGEMENT SERVICE WAS PERFORMED DURING A POSTOPERATIVE PERIOD REASON RELATED ORIGINAL PROCEDURE 2007 [facility] POSTOPERATIVE FOLLOW-UP VISIT, NORMALLY INCLUDED IN THE SURGICAL PACKAGE, INDICATE THAT EVALUATION & MANAGEMENT SERVICE WAS PERFORMED DURING A POSTOPERATIVE PERIOD REASON RELATED ORIGINAL PROCEDURE 2007 [facility] CRANIECTOMY OR CRANIOTOMY FOR EVACUATION OF HEMATOMA, SUPRATENTORIAL; INTRACEREBRAL 2007 [facility] MEDICAL NUTRITION THERAPY; RE-ASSESSMENT AND INTERVENTION, INDIVIDUAL, [id number] WITH THE PATIENT, EACH 15 MINUTES 2007 [facility] SKIN TEST; TUBERCULOSIS, INTRADERMAL 2006 [facility] PT A e ment Kinetic Training PT Assessment Kinetic Training 95902 2007 JAZZ CARTER [facility] Training And Self-Care Skills Training And Self-Care Skills 26472 2007 JAZZ CARTER [facility] Exercises A isted Exercises [place] [address] 2007 JAZZ CARTER [facility] Treatment Of Swallowing Dysfunction Treatment Of Swallowing Dysfunction 19283 2007 ODALIS RODRIGUEZ [facility] ENT Services Supervised Individual Speech/Hearing Therapy 2007 ODALIS RODRIGUEZ [facility] Treatment Of Swallowing Dysfunction Treatment Of Swallowing Dysfunction 52639 2007 ODALIS RODRIGUEZ [facility] Tracheostomy speaking valve 2007 ODALIS RODRIGUEZ [facility] Special ENT Services Evaluation of Speech/Hearing Problem 2007 ODALIS RODRIGUEZ [facility] Evaluation Of Swallowing And Oral Function Evaluation Of Swallowing And Oral Function 52471 2007 ODALIS RODRIGUEZ [facility] Tracheostomy speaking valve 2007 ODALIS RODRIGUEZ [facility] Health And Behav A e mt Each 15 Min Initial A e ment Health And Behav Assessmt Each 15 Min Initial Assessment 70785 2007 HECTOR DODGE [facility] Medical Nutrition Therapy Re-a e ment, Intervention Medical Nutrition Therapy Re-assessment, Intervention 64559 2007 CHIDI ROBERT [facility] Medical Nutrition Therapy Re-a e ment, Intervention Medical Nutrition Therapy Re-assessment, Intervention 06023 2007 CHIDI ROBERT [facility] Medical Nutrition Therapy Re-a e ment, Intervention Medical Nutrition Therapy Re-assessment, Intervention 60587 2007 CHIDI ROBERT [facility] Immunization Admin By Intranasal / Oral Route One Vaccine Immunization Admin By Intranasal / Oral Route One Vaccine 84853 2006 PASQUALE PLASCENCIA [facility] Influenza Virus Vaccine Live Intranasal 2006 PASQUALE PLASCENCIA [facility] Skin Test Anergy Tuberculin Intradermal Skin Test Anergy Tuberculin Intradermal 04218 2006 PASQUALE PLASCENCIA [facility] Psychiatric Therapy Individual Approximately 20-30 Minutes Psychiatric Therapy Individual Approximately 20-30 Minutes 87260 2006 ALESSIA TAN [facility] Psychiatric Evaluation Comprehensive Examination Psychiatric Evaluation Comprehensive Examination 84292 2006 ALESSIA TAN [facility] Hepatitis A And Hepatitis B (Intramuscular Use) Adult Dosage Hepatitis A And Hepatitis B (Intramuscular Use) Adult Dosage 10684 2006 ROQUE WHITNEY [facility] Immunization Administration One Vaccine Immunization Administration One Vaccine 49191 2006 ROQUE WHITNEY [facility] Threshold Audiogram (Pure Tone) Threshold Audiogram (Pure Tone) 95659 2006 KOMAL SYED [facility] Audiogram (Screening) Audiogram (Screening) 03646 2006 RITCHIE YOUNG [facility] Ophthalmological New Patient Start Comprehensive Care Ophthalmological New Patient Start Comprehensive Care 31731 2006 GUSTAVO VALLE Determination Of Refractive State Determination Of Refractive State 44954 2006 GUSTAVO VALLE Exercises A isted Exercises For ROM [place]ercises [place] 57038 2006 BRET VILLA PT A e ment Kinetic Training Initial 30 Minutes PT Assessment Kinetic Training Initial 30 Minutes 44168 2006 BRET VILLA Physical Medicine - Group Physical Therapy Se ion Physical Medicine - Group Physical Therapy Session 61974 2006 BRET VILLA Psychiatric Therapy Environmental Intervention Psychiatric Therapy Environmental Intervention 53213 2006 LEMUEL SAMPSON Psychiatric Therapy Individual Approximately 20-30 Minutes Psychiatric Therapy Individual Approximately 20-30 Minutes 17695 2006 LEMUEL SAMPSON Psychologic Testing And Report Administered By Computer Psychologic Testing And Report Administered By Computer 41065 2006 LEMUEL SAMPSON Psychiatric Evaluation Comprehensive Examination Psychiatric Evaluation Comprehensive Examination 44781 2006 LEMUEL SAMPSON Skin Test Anergy Tuberculin Intradermal Skin Test Anergy Tuberculin Intradermal 17043 2009 KAREEN ARMENDARIZ Skin Test Anergy Tuberculin Intradermal Skin Test Anergy Tuberculin Intradermal 74644 2009 JAZZ DAVIS Electrocardiogram Electrocardiogram 04559 01/17 EMMA WHALEY [facility] Skin Test Anergy Tuberculin Intradermal Skin Test Anergy Tuberculin Intradermal 13539 2009 CIERA FOREMAN [facility] Coordinated care fee, risk adjusted maintenance 2009 IVANNA CORTÉS Case Management, each 15 minutes 2009 IVANNA CORTÉS Influenza Virus Vaccine Pandemic Formulation Influenza Virus Vaccine Pandemic Formulation 71059 2009 WILTON SILVA [facility] Immunization Admin By Intranasal / Oral Route One Vaccine Immunization Admin By Intranasal / Oral Route One Vaccine 60760 2009 WILTON SILVA [facility] Immunization Administration Each Additional Vaccine 2009 WILTON SILVA [facility] Typhoid Vaccine Vi Capsular Polysaccharide, For Intramus Use Typhoid Vaccine Vi Capsular Polysaccharide, For Intramus Use 16369 2009 WILTON SILVA [facility] Skin Test Anergy Tuberculin Intradermal Skin Test Anergy Tuberculin Intradermal 38101 2009 WILTON SILVA [facility] Coordinated care fee, risk adjusted maintenance, Level 4 2009 IVANNA CORTÉS S [facility] Case Management, each 15 minutes 2009 IVANNA CORTÉS S [facility] Occupational Therapy Evaluation Occupational Therapy Evaluation 90319 2008 PAL NIEVES 30 min [facility] Physical Medicine Physical Therapy Re-Evaluation Physical Medicine Physical Therapy Re-Evaluation 73697 2008 TAMIA CARMONA [facility] Influenza Virus Vaccine Live Intranasal 2008 HEIDE PRASAD Immunization Admin By Intranasal / Oral Route One Vaccine Immunization Admin By Intranasal / Oral Route One Vaccine 13859 2008 HEIDE PRASAD Coordinated care fee, risk adjusted maintenance, Level 4 2008 IVANNA CORTÉS [facility] Spectacles Services Fitting Monofocals (Not For Aphakia) Spectacles Services Fitting Monofocals (Not For Aphakia) 56214 2008 DOROTHY SUH DEElin [facility] Determination Of Refractive State Determination Of Refractive State 35878 2008 DOROTHY SUH DEElin [facility] Ophthalmological New Patient Start Comprehensive Care Ophthalmological New Patient Start Comprehensive Care 28938 2008 DOROTHY SUH DEElin [facility] -Supervised Specimen Handling / Transfer: Office To Lab -Supervised Specimen Handling / Transfer: Office To Lab 74000 2008 MEREDITH PAGE [facility] Coordinated care fee, risk adjusted maintenance, Level 4 2008 LYDIA CORTÉSA S [facility] Case Management, each 15 minutes 2008 IVANNA CORTÉS Audiogram (Screening) Audiogram (Screening) 80204 2008 SIDNEY DICKERSON [facility] Audiometry Group Testing Audiometry Group Testing 73557 2008 SIDNEY DICKERSON [facility] Coordinated care fee, risk adjusted maintenance, Level 4 2008 LONG, IVANNA S DoD Case Management, each 15 minutes 2008 LONG, IVANNA S DoD Physical Therapy: ___ Se ion Segments, 15 Minutes Each Physical Therapy: ___ Session Segments, 15 Minutes Each 75197 2008 ELVIA JEFFERS M x 20 mins DoD Physical Therapy: ___ Se ion Segments, 15 Minutes Each Physical Therapy: ___ Session Segments, 15 Minutes Each 05575 2008 ELVIA JEFFERS M x 30 mins DoD Phys Therapy Education Self Care Training - Per 15 Minutes Phys Therapy Education Self Care Training - Per 15 Minutes 96969 2008 HARVEY KONG [facility] Physical Therapy: ___ Se ion Segments, 15 Minutes Each Physical Therapy: ___ Session Segments, 15 Minutes Each 83550 2008 NORAH JIMENEZ Aquatic Exercises Aquatic Exercises 28927 03/15 NORAH JIMENEZ Phys Therapy Education Self Care Training - Per 15 Minutes Phys Therapy Education Self Care Training - Per 15 Minutes 16959 2008 HARVEY KONG [facility] Phys Therapy Education Self Care Training - Per 15 Minutes Phys Therapy Education Self Care Training - Per 15 Minutes 19280 2008 HARVEY KONG Phys Therapy Education Self Care Training - Per 15 Minutes Phys Therapy Education Self Care Training - Per 15 Minutes 37091 2008 HARVEY KONG [facility] Coordinated care fee, risk adjusted maintenance, Level 4 2008 LONG, IVANNA S DoD Case Management, each 15 minutes 2008 LONG, IVANNA S DoD Coordinated care fee, risk adjusted maintenance, Level 4 2008 LONG, IVANNA S DoD Case Management, each 15 minutes 2008 LONG, IAVNNA S DoD Phys Therapy Education Self Care Training - Per 15 Minutes Phys Therapy Education Self Care Training - Per 15 Minutes 37766 2008 HARVEY KONG Aquatic Exercises Aquatic Exercises 82463 02/28 NORAH JIMENEZ V [facility] Phys Therapy Education Self Care Training - Per 15 Minutes Phys Therapy Education Self Care Training - Per 15 Minutes 92633 2008 HARVEY KONG Aquatic Exercises Aquatic Exercises 44354 02/16 RENEE GREENWOOD [facility] Physical Medicine Physical Therapy Evaluation Physical Medicine Physical Therapy Evaluation 09191 2008 LATONYA MARADIAGA Coordinated care fee, risk adjusted maintenance, Level 4 2008 LONG, IVANNA S DoD Case Management, each 15 minutes 2008 LONG, IVANNA S DoD Coordinated care fee, risk adjusted maintenance, Level 4 2008 LONG, IVANNA S DoD Case Management, each 15 minutes 2008 LONG, IVANNA S DoD Occupational Therapy Re-Evaluation Occupational Therapy Re-Evaluation 87604 2008 TIAGOTEMEREDITH IZAGUIRRE PT A e ment Kinetic Training PT Assessment Kinetic Training 63880 2008 MOO PAULO A Martín Coordinated care fee, risk adjusted maintenance, Level 3 2008 LONGLYDIAA S DoD Case Management, each 15 minutes 2008 LONGLYDIAA S Martín PT A e ment Kinetic Training PT Assessment Kinetic Training 17929 2008 LILI MONTES PT A e ment Kinetic Training PT Assessment Kinetic Training 45601 2008 LILI MONTES PT A e ment Kinetic Training PT Assessment Kinetic Training 84124 2008 LILI MONTES Psychometric Neuropsych Testing Battery Admin By Physician Psychometric Neuropsych Testing Battery Admin By Physician 29157 2008 MONICA WATSON PT A e ment Kinetic Training PT Assessment Kinetic Training 33309 2008 PAULO CORTÉS PT A e ment Kinetic Training PT Assessment Kinetic Training 09052 2008 PAULO CORTÉS PT A e ment Kinetic Training PT Assessment Kinetic Training 03342 2008 PAULO CORTÉS Psychometric Neuropsych Testing Battery Admin By Physician Psychometric Neuropsych Testing Battery Admin By Physician 18023 2008 JATINDER GARCIA Psychometric Neuropsych Testing Battery Admin By Entry Table Operator Psychometric Neuropsych Testing Battery Admin By Entry Table Operator 80844 2008 JATINDER GARCIA Exercises A isted Exercises For ROM Exercises Assisted Exercises [place] ROM 30774 2008 MEREDITH LOMELI Training And Self-Care Skills Training And Self-Care Skills 09652 2008 MEREDITH LOMELI Occupational Therapy Evaluation Occupational Therapy Evaluation 93687 2008 DELETE_[email or web address] MEREDITH CRISOSTOMO [facility] Coordinated care fee, risk adjusted maintenance, Level 3 2008 LONG, IVANNA S [facility] Case Management, each 15 minutes 2008 LONG, IVANNA S [facility] Psychologic Testing And Report Administered By Computer Psychologic Testing And Report Administered By Computer 81134 2008 JATINDER GARCIA [facility] Psychometric Neuropsych Testing Battery Admin By Entry Table Operator Psychometric Neuropsych Testing Battery Admin By Entry Table Operator 19129 2008 JOSEJATINDER BURT [facility] Psychiatric Evaluation Comprehensive Examination Psychiatric Evaluation Comprehensive Examination 82331 2008 MONICA WATSON [facility] Screening Test Of Visual Acuity, Quantitative, Bilateral Screening Test Of Visual Acuity, Quantitative, Bilateral 59666 2008 SIERRA DE LA ROSA [facility] Coordinated care fee, risk adjusted maintenance, Level 3 2007 LONG, IVANNA S [facility] Case Management, each 15 minutes 2007 LONG, IVANNA S [facility] Audiometry Group Testing Audiometry Group Testing 44657 2007 PAL MCLEOD [facility] Immunization Admin By Intranasal / Oral Route One Vaccine Immunization Admin By Intranasal / Oral Route One Vaccine 73425 2007 KAREEN ARMENDARIZ [facility] Influenza Virus Vaccine Live Intranasal 2007 [facility] Skin Test Anergy Tuberculin Intradermal Skin Test Anergy Tuberculin Intradermal 14513 2007 KAREEN ARMENDARIZ [facility] Venipuncture Venipuncture [address]Supervised Specimen Handling / Transfer: Office To Lab -Supervised Specimen Handling / Transfer: Office To Lab [address]Supervised Specimen Handling / Transfer: Office To Lab -Supervised Specimen Handling / Transfer: Office To Lab 27594 2007 TAMIA BALTAZAR [facility] Case Management, each 15 minutes 2007 LONG, IVANNA S [facility] Case Management, each 15 minutes 2007 LONG, IVANNA S [facility] Case Management, each 15 minutes 2007 LONG, IVNANA S [facility] Coordinated care fee, risk adjusted maintenance 2007 LONG, IVANNA S [facility] Case Management, each 15 minutes 2007 LONG, [...] 15 minutes 2007 LONG, IVANNA S DoD Treatment Of Swallowing Dysfunction Treatment Of Swallowing Dysfunction 84082 2007 ODALIS RODRIGUEZ [facility] Physical Therapy Neuromuscular Re-education Physical Therapy Neuromuscular Re-education 65101 2007 JAZZ CARTER [facility] Treatment Of Swallowing Dysfunction Treatment Of Swallowing Dysfunction 98647 2007 ODALIS RODRIGUEZ [facility] Training And Self-Care Skills Training And Self-Care Skills 37418 2007 JAZZ CARTER [facility] Medical Nutrition Therapy Re-a e ment, Intervention Medical Nutrition Therapy Re-assessment, Intervention 23438 2007 YOLANDA CEDEÑO [facility] Training And Self-Care Skills Training And Self-Care Skills 08900 2007 JAZZ CARTER [facility] Physical Therapy Neuromuscular Re-education Physical Therapy Neuromuscular Re-education 08121 2007 JAZZ CARTER [facility] Social History Combined list of available smoking, tobacco, and other social history 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 Social History Type Response Date Comment [facility] e Tobacco smoking status NHIS VA-TOBACCO FORMER USER 03/18/2024 [facility] History of tobacco use MO-TOBACCO QUIT < 1 YEAR 03/18/2024 [facility] History of tobacco use VA-TOBACCO USER E VERY DAY 03/18/2023 [facility] of [facility] 11/06/2022 [facility] History of tobacco use ORYX ADMIT TOBACC O USE CIGS GR 5D 11/06/2022 [facility] History of tobacco use LIFETIME NON-USER OF TOBACCO 01/17/2011 [facility] History of tobacco use LIFETIME NON-USER OF TOBACCO 03/04/2008 [facility] This section is an empty social history section. [facility] Plan of Care List of future care activities from Department of 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 Additional future care activities may be listed in the Assessment and Plan section. Date/Time Care Activity Care Activity Detail Facili ty 03/18/2025 AMBULATORY - MEDICINE AMBULATORY - [facility]IC[facility]
--- OUTSIDE RECORDS SUMMARY | 2025-01-29 14:03 | XMS_ITS | Continuity of Care Document ---
Author Organization [facility] Address [address] [place] [address] Phone Care Team Providers Care Inside Polisher Name Role Phone Amy Dc Unavailable Unavailable Allergies, Adverse Reactions, Alerts Substance Reaction Status Criticality No Known Allergies Active No Inform ation Medications Medication Instructions Dosage Effective Dates (start - stop) Status Comments amoxicillin 875 mg-potassium clavulanate 125 mg tablet take 1 tablet by oral route every 12 hours 1.00 tablet - Active Procedures Procedure Date OFFICE/OUTPATIENT VISIT, [facility] Ketorolac tromethamine inj Advance Directives Directive Yes / No Effective Date File Name No Information Encounters Encounter Description Practice Location Reason(s) For Visit Diagnoses Date Provider Providers Copied on Encounter OFFICE/OUTPAT IENT VISIT, [facility], [address] [place] [address], [facility], tel:[phone] [place] TOOTH PAIN (chief complaint) Chronic dental infection Dao Reyes. [address] [place] [address], [facility], . 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 STATES HE USED MANY OF THOSE LAST [...] to the area. 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 STATES HE USED MANY OF THOSE LAST [...] Mental Status Date Cognitive Assessment Orientation - [place] ed to time, place, person, situation. Patient Care Teams Name Effective Dates (start - stop) Status Members No Information
--- OUTSIDE RECORDS SUMMARY | 2025-01-29 14:04 | XMS_ITS ---
Author Name [facility] [place] [facility] [place] Address [address] [place] [address] Care Team Providers Care Filer Helper Name Role Phone AARON KENNEDY Primary Care [...] Palacios's Name Patient's Relationship to Policy Palacios [facility] 2018 PRIME Sep 29, 2017 RETIREE [id number] CHERISERICK Bell PATIENT [facility] 2018 TRICA RE Sep 29, 2017 PRIME [id number] RICK CUMMINGS PATIENT Selected Encounter This [...] [place] CURRENT NRT DECLINE [facility] Tobacco Use History This section includes a history of the smoking, or tobacco-related health factors, that were collected on or before the date of the Encounter. The data comes from the [facility] where the Encounter took place. Date/Time Smoking Status/Tobacco Use Comment F acility Nov 06, 2022 11:25 PM ORYX ADMIT TOBACCO SCREEN YES [facility] Nov 06, 2022 11:25 PM ORYX ADMIT TOBACCO USE CIGS GR 5D [facility] Nov 06, 2022 11:25 PM ORYX DAILY TOBACCO VIOLENT CRIMES DETECTIVE RECEIVED [facility] Nov 06, 2022 11:25 PM ORYX DAILY TOBACCO MEDS ORDERED [facility] Encounter Notes: All associated encounter notes [...] Facility: Aug Method of Contact: Notified from [facility] worklist Notification ID: [id number] [facility] Referral #: [id number] Clinical Review [facility] [place], [place] Name: Hospital: [facility] Address: [address] [place] [address]: [place] State: [place] Zip Code: [address] [facility] Facility Point of Contact: Name: Nahed Jacobsen Chief complaint: Tooth Pain Primary Diagnosis: Disposition Discharged Date of discharge: Aug Discharge to home Records req'd by fax. /jese/ LETICIA JONES [employer] Signed: 09/09/2024 13:49 Receipt Acknowledged By: 09/09/2024 15:44 /es/ AARON KENNEDY, MSN, AGNP-C NURSE PRACTITIONER 09/09/2024 14:14 /es/ FREDY DOOLEY, RN MSN REGISTERED NURSE 09/13/2024 ADDENDUM STATUS: COMPLETED Records r/t this episode of care sent to [facility] for scanning. /jese/ LET[facility]IA [facility] [employer] Signed: 09/13/2024 16:59 LETICIA JONES [facility]
--- OUTSIDE RECORDS SUMMARY | 2025-01-29 14:17 | XMS_ITS | Continuity of Care Document ---
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 It does not include entries that were removed or entered in error. Problem Status Onset Date Problem Type Date of Resolution Comments Source Adjustment disorder with depressed mood (SNOMED CT 07001956) Active Condition [facility] Cerebral aneurysm, nonruptured (ICD-9-CM 437.3) Active Condition [facility] Congenital arteriovenous malformation Active Condition Jan 17, 2011 Entered By: CHIOMA QUAN Comment: 12/2007 surgery in [facility] Diplopia * (ICD-9-CM 368.2) Active Condition [facility] Myopia Active Condition [facility] Pain of joint of knee (SNOMED CT 6679021634) Active Condition [facility] Pneumonia, organism unspecified Active Condition Jan 17, 2011 Entered By: CHIOMA QUAN Comment: August 2010, received pneumovax vaccineMar 08, 2011 Entered By: CHIOMA QUAN Comment: 02/20/11 rul and rml [facility] Sleep disturbances Active Condition [facility] Tinnitus Active Condition [facility] Vitamin D Deficiency (SCT 80565417) Active Condition [facility] Chest Pain * (ICD-9-CM 786.50) Inactive Condition 03/18/2023 [facility] Cyst, ganglion Inactive Condition 03/18/2023 Jan 17, 2011 Entered By: CHIOMA QUAN Comment: right wrist [facility] Encounters for unspecified Administrative Purpose (ICD-9-CM V68.9) Inactive Condition 03/18/2023 [facility] NEUTROPENIA, unspecified Inactive Condition 03/18/[address] [facility] Vitamin D Deficiency Inactive Condition 03/18/[address] [facility] visit for: services physical separation Active Condition [facility] visit for: refer patient without exam or treatment Active Condition [facility] FLAT FOOT Inactive Condition [facility] METATARSALGIA Active Condition [facility] CHEST PAIN Active Condition [facility] limb pain Active Condition [facility] PHARYNGITIS Inactive Condition [facility] visit for: examination of subpopulation Active Condition [...] for: ears / hearing exam Active Condition [facility] ASSESSMENT OF PATIENT CONDITION WORK-RELATED Active Condition [facility] SINUSITIS ACUTE Active Condition [facility] PHARYNGITIS ACUTE Inactive Condition [facility] INGROWING NAIL Active Condition [facility] visit for: postsurgical exam Active Condition [facility] [...] Condition [facility] difficulty swallowing (dysphagia) Active Condition [facility] Patient Counseling: Inquiry & Counseling Active Condition [facility] INTRACEREBRAL HEMORRHAGE Active Condition [facility] BACTEREMIA Active Condition [facility] ARTERIOVENOUS MALFORMATION (DISMANTLER) Active Condition [facility] Dietary Counseling Pertaining To Specific Condition Inactive Condition [facility] visit for: screening exam pulmonary tuberculosis [...] medical exam w/o abnormal findings Active Diagnosis [facility] Diagnosis: ICD-10-CM Q27.30 Arteriovenous malformation, site unspecified Active Diagnosis [facility] Diagnosis: ICD-10-CM G40.89 Other seizures Active Diagnosis [facility] Allergies, Adverse Reactions, Alerts Combined list of allergies 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 It does not include entries that were removed or entered in error. Substance Category Reaction Severity Reaction type Status Date Reported Comments Source ADHESIVE TAPE Propensity to adverse reaction (finding) Eruption active 1 . [facility] OTHER Drug allergy (disorder) Unknown active 8 [facility] Immunizations Combined list of available immunizations from the Department of Defense and [facility] facilities. Immunization Series Date Given Administered By Site Reaction Lot Number CVX Code Drug Block Sorter Status Comments Source PNEUMOCOCCAL POLYSACCHARID E PPV23 2022 [facility] H R RIGHT DELTO ID [id number] 33 complet ed [facility] TDAP 2022 [facility] H R LEFT DELTO ID [id number] 115 complet ed [facility] AT [facility] INFLUENZA, UNSPECIFIED FORMULATION [address] [facility] INFLUENZA, UNSPECIFIED FORMULATION 2010 88 complet ed [facility] tuberculin skin test; purified protein derivative solution, intradermal 0 2009 KAREEN ARMENDARIZ [id number] [place] [employer] ([facility]) complet ed tuberculi n skin test; purified protein derivativ e solution, intraderm al DoD tuberculin skin test; purified protein derivative solution, intradermal 1 2009 JAZZ DAVIS [id number] 96 [place] [employer] ([facility]) complet ed tuberculi n skin test; purified protein derivativ e solution, intraderm al DoD tuberculin skin test; purified protein derivative solution, intradermal 1 2009 CIERA FOREMAN [id number] 96 [place] [employer] ([facility]) complet ed tuberculi n skin test; purified protein derivativ e solution, intraderm al DoD tuberculin skin test; purified protein derivative solution, intradermal 1 2009 WILTON SILVA [id number] 96 [place] [employer] ([facility]) complet ed tuberculi n skin test; purified protein derivativ e solution, intraderm al DoD typhoid Vi capsular polysaccharid e vaccine 1 2009 WILTON SILVA [id number] [place] [employer] ([employer]) complet ed typhoid Vi capsular polysacch aride vaccine DoD Novel Influenza-H1N 1-09, live virus for nasal administratio n 1 2009 WILTON SILVA [id number] 125 [employer] (MED) complet ed Novel Influenza -[id number], live virus for nasal administr ation DoD influenza virus vaccine, live, attenuated, for intranasal use 0 2008 UNK 111 Unknown (UNK) comple t ed influenza virus vaccine, live, attenuate d, for intranasa l use DoD influenza virus vaccine, live, attenuated, for intranasal use 1 2008 SERA PRASAD Radha [id number] 111 [employer] [facility]. (MED) complet ed influenza virus vaccine, live, attenuate d, for intranasa l use DoD tuberculin skin test; purified protein derivative solution, intradermal 1 2007 KAREEN ARMENDARIZ [id number] 96 [place] (PD) complet ed tuberculi n skin test; purified protein derivativ e solution, intraderm al DoD influenza virus vaccine, live, attenuated, for intranasal use 1 2007 KAREEN ARMENDARIZ [id number] 111 [employer] [facility]. (MED) complet ed influenza virus vaccine, live, attenuate d, for intranasa l use DoD influenza virus vaccine, unspecified formulation 0 2006 UNK 88 Unknown (UNK) comple t ed influenza virus vaccine, unspecifi ed formulati on DoD tuberculin skin test; purified protein derivative solution, intradermal 1 2006 JAZZ DAVIS [id number] 96 [place] (PD) complet ed tuberculi n skin test; purified protein derivativ e solution, intraderm al DoD influenza virus vaccine, live, attenuated, for intranasal use 1 2006 PASQUALE SINHA Neetu [id number] 111 [employer] [facility]. (MED) complet ed influenza virus vaccine, live, attenuate d, for intranasa l use DoD hepatitis B vaccine, adult dosage 3 2006 UNK 43 Unknown (UNK) comple t ed hepatitis B vaccine, adult dosage DoD hepatitis A and hepatitis B vaccine 3 2006 ROQUE WHITNEY [id number] [facility] complet ed hepatitis A and hepatitis [...] Mar 18, 2024 10:55 AM Reporting Lab: [facility] [address] [facility] [address] Performing Lab: [facility] [address] [facility] [phone] [facility] CBC ERYTHROCYTE S [#/VOLUME] IN BLOOD BY AUTOMATED COUNT 4.62 10*6/u L 4.10 - 5.70 03/18 Specimen Type: BLOOD No comment entered. Ordering Provider: Nicanor KENNEDY Report Released Date/Time: Mar 18, 2024 10:55 AM Reporting Lab: [address] [address] Performing Lab: [address] [address] [facility] CBC HEMOGLOBIN [MASS/VOLUM E] IN BLOOD 14.3 g/dL 13.1 - 16.8 03/18 Specimen Type: BLOOD No comment entered. Ordering Provider: Nicanor KENNEDY Report Released Date/Time: Mar 18, 2024 10:55 AM Reporting Lab: [address] [address] Performing Lab: [address] [phone] [place] [address] [facility] CBC HEMATOCRIT [VOLUME FRACTION] OF BLOOD 42.9 38.2 - 48.4 03/18 Specimen Type: BLOOD No comment entered. Ordering Provider: Nicanor KENNEDY Report Released Date/Time: Mar 18, 2024 10:55 AM Reporting Lab: [address] [address] Performing Lab: [address] [address] [facility] CBC MCV [ENTITIC VOLUME] BY AUTOMATED COUNT 92.9 fL 80.0 - 100.0 03/18 Specimen Type: BLOOD No comment entered. Ordering Provider: Nicanor KENNEDY Report Released Date/Time: Mar 18, 2024 10:55 AM Reporting Lab: [address] [address] Performing Lab: [address] [address] [facility] CBC MCH [ENTITIC MASS] BY AUTOMATED COUNT 31.0 pg 27.0 - 34.0 03/18 Specimen Type: BLOOD No comment entered. Ordering Provider: Nicanor KENNEDY Report Released Date/Time: Mar 18, 2024 10:55 AM Reporting Lab: [address] [address] Performing Lab: [address] [address] [facility] CBC MCHC [MASS/VOLUM E] BY AUTOMATED COUNT 33.3 g/dL 33.0 - 36.0 03/18 Specimen Type: BLOOD No comment entered. Ordering Provider: Nicanor KENNEDY Report Released Date/Time: Mar 18, 2024 10:55 AM Reporting Lab: [address] [address] Performing Lab: [address] [address] [facility] CBC PLATELETS [#/VOLUME] IN BLOOD BY AUTOMATED COUNT 237 10*3/u L 150 - 400 03/18 Specimen Type: BLOOD No comment entered. Ordering Provider: Nicanor KENNEDY Report Released Date/Time: Mar 18, 2024 10:55 AM Reporting Lab: [address] [address] Performing Lab: [address] [address] [facility] CBC PLATELET MEAN VOLUME [ENTITIC VOLUME] IN BLOOD BY AUTOMATED COUNT 10.6 fL 7.5 - 11.2 03/18 Specimen Type: BLOOD No comment entered. Ordering Provider: Nicanor KENNEDY Report Released Date/Time: Mar 18, 2024 10:55 AM Reporting Lab: [address] [address] Performing Lab: [address] [address] [facility] CBC ERYTHROCYTE DISTRIBUTIO N WIDTH [RATIO] BY AUTOMATED COUNT 12.2 11.8 - 15.1 03/18 Specimen Type: BLOOD No comment entered. Ordering Provider: Nicanor KENNEDY Report Released Date/Time: Mar 18, 2024 10:55 AM Reporting Lab: [address] [address] Performing Lab: [address] [address] [facility] CBC LYMPHOCYTES /100 LEUKOCYTES IN BLOOD BY AUTOMATED COUNT 30 03/18 Specimen Type: BLOOD No comment entered. Ordering Provider: Nicanor KENNEDY Report Released Date/Time: Mar 18, 2024 10:55 AM Reporting Lab: [facility] [address] [place] [phone] Performing Lab: [facility] [address] [place] [phone] [facility] CBC MONOCYTES/1 00 LEUKOCYTES IN BLOOD BY AUTOMATED COUNT 8 03/18 Specimen Type: BLOOD No comment entered. Ordering Provider: Nicanor KENNEDY Report Released Date/Time: Mar 18, 2024 10:55 AM Reporting Lab: [facility] [address] [place] [phone] Performing Lab: [address] [address] [facility] CBC NEUTROPHILS /100 LEUKOCYTES IN BLOOD BY AUTOMATED COUNT 58 03/18 Specimen Type: BLOOD No comment entered. Ordering Provider: Nicanor KENNEDY Report Released Date/Time: Mar 18, 2024 10:55 AM Reporting Lab: [facility] [address] [place] [phone] Performing Lab: [facility] [address] [place] [phone] [facility] CBC EOSINOPHILS /100 LEUKOCYTES IN BLOOD BY AUTOMATED COUNT 3 03/18 Specimen Type: BLOOD No comment entered. Ordering Provider: Nicanor KENNEDY Report Released Date/Time: Mar 18, 2024 10:55 AM Reporting Lab: [facility] [address] [place] [phone] Performing Lab: [facility] [address] [place] [phone] [facility] CBC BASOPHILS/1 00 LEUKOCYTES IN BLOOD BY AUTOMATED COUNT 1 03/18 Specimen Type: BLOOD No comment entered. Ordering Provider: Nicanor KENNEDY Report Released Date/Time: Mar 18, 2024 10:55 AM Reporting Lab: [facility] [address] [place] [phone] Performing Lab: [facility] [address] [place] [phone] [facility] CBC LYMPHOCYTES [#/VOLUME] IN BLOOD BY AUTOMATED COUNT 1.42 10*3/u L 0.77 - 4.50 03/18 Specimen Type: BLOOD No comment entered. Ordering Provider: Nicanor KENNEDY Report Released Date/Time: Mar 18, 2024 10:55 AM Reporting Lab: [place] [phone] Performing Lab: [place] [phone] [facility] CBC MONOCYTES [#/VOLUME] IN BLOOD BY AUTOMATED COUNT 0.38 10*3/u L 0.19 - 0.80 03/18 Specimen Type: BLOOD No comment entered. Ordering Provider: Nicanor KENNEDY Report Released Date/Time: Mar 18, 2024 10:55 AM Reporting Lab: [address] [address] Performing Lab: [facility] [address] [place], [place] [phone] [address] [facility] CBC NEUTROPHILS [#/VOLUME] IN BLOOD BY AUTOMATED COUNT 2.72 10*3/u L 2.10 - 8.00 03/18 Specimen Type: BLOOD No comment entered. Ordering Provider: Nicanor KENNEDY Report Released Date/Time: Mar 18, 2024 10:55 AM Reporting Lab: [facility] [address] [place] [phone] Performing Lab: [place] [phone] [facility] CBC EOSINOPHILS [#/VOLUME] IN BLOOD BY AUTOMATED COUNT 0.13 10*3/u L 0.00 - 0.60 03/18 Specimen Type: BLOOD No comment entered. Ordering Provider: Nicanor KENNEDY Report Released Date/Time: Mar 18, 2024 10:55 AM Reporting Lab: [address] [address] Performing Lab: [address] [phone] [place] [address] [facility] CBC BASOPHILS [#/VOLUME] IN BLOOD BY AUTOMATED COUNT 0.06 10*3/u L 0.00 - 0.20 03/18 Specimen Type: BLOOD No comment entered. Ordering Provider: Nicanor KENNEDY Report Released Date/Time: Mar 18, 2024 10:55 AM Reporting Lab: [place] [address] Performing Lab: [address] [phone] [facility] COMPREHENS GUILLERMO METABOLIC PANEL CREATININE [MASS/VOLUM E] IN SERUM OR PLASMA 1.14 mg/dL 0.7 - 1.3 03/18 Specimen Type: PLASMA Comment: No hemolysis noted. Ordering Provider: Nicanor KENNEDY Report Released Date/Time: Mar 18, 2024 10:55 AM Reporting Lab: [place] [phone] Performing Lab: [address] [phone] [place] [address] [facility] COMPREHENS GUILLERMO METABOLIC PANEL UREA NITROGEN [MASS/VOLUM E] IN SERUM OR PLASMA 16.6 mg/dL 9.0 - 25.0 03/18 Specimen Type: PLASMA Comment: No hemolysis noted. Ordering Provider: Nicanor KENNEDY Report Released Date/Time: Mar 18, 2024 10:55 AM Reporting Lab: [place] [phone] Performing Lab: [address] [address] [facility] COMPREHENS GUILLERMO METABOLIC PANEL GLUCOSE [MASS/VOLUM E] IN SERUM OR PLASMA 108 mg/dL 72 - 99 03/18 H Specimen Type: PLASMA Comment: No hemolysis noted. Ordering Provider: Nicanor KENNEDY Report Released Date/Time: Mar 18, 2024 10:55 AM Reporting Lab: [facility] [address] [place] [phone] Performing Lab: [facility] [address] [place] [phone] [facility] COMPREHENS GUILLERMO METABOLIC PANEL SODIUM [MOLES/VOLU ME] IN SERUM OR PLASMA 139 meq/L 136 - 145 03/18 Specimen Type: PLASMA Comment: No hemolysis noted. Ordering Provider: Nicanor KENNEDY Report Released Date/Time: Mar 18, 2024 10:55 AM Reporting Lab: [place] [address] Performing Lab: [facility] [address] [place] [address] [phone] [facility] COMPREHENS GUILLERMO METABOLIC PANEL POTASSIUM [MOLES/VOLU ME] IN SERUM OR PLASMA 4.9 meq/L 3.5 - 5 03/18 Specimen Type: PLASMA Comment: No hemolysis noted. Ordering Provider: Nicanor KENNEDY Report Released Date/Time: Mar 18, 2024 10:55 AM Reporting Lab: [facility] [address] [place] [phone] Performing Lab: [facility] [address] [place] [phone] [place] [address] [facility] COMPREHENS GUILLERMO METABOLIC PANEL CHLORIDE [MOLES/VOLU ME] IN SERUM OR PLASMA 106 meq/L 98 - 107 03/18 Specimen Type: PLASMA Comment: No hemolysis noted. Ordering Provider: Nicanor KENNEDY Report Released Date/Time: Mar 18, 2024 10:55 AM Reporting Lab: [facility] [address] [place] [phone] Performing Lab: [facility] [address] [place] [phone] [place] [address] [facility] COMPREHENS GUILLERMO METABOLIC PANEL CARBON DIOXIDE, TOTAL [MOLES/VOLU ME] IN SERUM OR PLASMA 25 meq/L 22 - 31 03/18 Specimen Type: PLASMA Comment: No hemolysis noted. Ordering Provider: Nicanor KENNEDY Report Released Date/Time: Mar 18, 2024 10:55 AM Reporting Lab: [place] [phone] Performing Lab: [facility] [address] [place] [phone] [facility] COMPREHENS GUILLERMO METABOLIC PANEL CALCIUM [MASS/VOLUM E] IN SERUM OR PLASMA 9.3 mg/dL 8.4 - 10.4 03/18 Specimen Type: PLASMA Comment: No hemolysis noted. Ordering Provider: Nicanor KENNEDY Report Released Date/Time: Mar 18, 2024 10:55 AM Reporting Lab: [place] [address] Performing Lab: [address] [facility] COMPREHENS GUILLERMO METABOLIC PANEL PROTEIN [MASS/VOLUM E] IN SERUM OR PLASMA 6.9 g/dL 6 - 8.6 03/18 Specimen Type: PLASMA Comment: No hemolysis noted. Ordering Provider: Nicanor KENNEDY Report Released Date/Time: Mar 18, 2024 10:55 AM Reporting Lab: [place] [phone] Performing Lab: [address] [phone] [place] [address] [facility] COMPREHENS GUILLERMO METABOLIC PANEL ALBUMIN [MASS/VOLUM E] IN SERUM OR PLASMA 4.3 g/dL 3.4 - 5 03/18 Specimen Type: PLASMA Comment: No hemolysis noted. Ordering Provider: Nicanor KENNEDY Report Released Date/Time: Mar 18, 2024 10:55 AM Reporting Lab: [place] [phone] Performing Lab: [address] [address] [facility] COMPREHENS GUILLERMO METABOLIC PANEL BILIRUBIN.T OTAL [MASS/VOLUM E] IN SERUM OR PLASMA 0.5 mg/dL 0.2 - 1.2 03/18 Specimen Type: PLASMA Comment: No hemolysis noted. Ordering Provider: Nicanor KENNEDY Report Released Date/Time: Mar 18, 2024 10:55 AM Reporting Lab: [address] [address] Performing Lab: [address] [address] [facility] COMPREHENS GUILLERMO METABOLIC PANEL ALKALINE PHOSPHATASE [ENZYMATIC ACTIVITY/VO LUME] IN SERUM OR PLASMA 73 U/L 40 - 150 03/18 Specimen Type: PLASMA Comment: No hemolysis noted. Ordering Provider: Nicanor KENNEDY Report Released Date/Time: Mar 18, 2024 10:55 AM Reporting Lab: [address] [phone] Performing Lab: [address] [address] [facility] COMPREHENS GUILLERMO METABOLIC PANEL ASPARTATE AMINOTRANSF ERASE [ENZYMATIC ACTIVITY/VO LUME] IN SERUM OR PLASMA 28 U/L 5 - 34 03/18 Specimen Type: PLASMA Comment: No hemolysis noted. Ordering Provider: Nicanor KENNEDY Report Released Date/Time: Mar 18, 2024 10:55 AM Reporting Lab: [address] [address] Performing Lab: [address] [address] [facility] COMPREHENS GUILLERMO METABOLIC PANEL ALANINE AMINOTRANSF ERASE [ENZYMATIC ACTIVITY/VO LUME] IN SERUM OR PLASMA 24 U/L 8 - 40 03/18 Specimen Type: PLASMA Comment: No hemolysis noted. Ordering Provider: Nicanor KENNEDY Report Released Date/Time: Mar 18, 2024 10:55 AM Reporting Lab: [address] [address] Performing Lab: [address] [address] [facility] COMPREHENS GUILLERMO METABOLIC PANEL GLOMERULAR FILTRATION RATE/1.73 SQ M.PREDICTED [VOLUME RATE/AREA] IN SERUM, PLASMA OR BLOOD BY CREATININE- BASED FORMULA (CKD-EPI 2020) 85.5 60 03/18 Specimen Type: PLASMA Comment: No hemolysis noted. Ordering Provider: Nicanor KENNEDY Report Released Date/Time: Mar 18, 2024 10:55 AM Reporting Lab: [address] [address] Performing Lab: [address] [phone] [place] [address] [facility] HGA1C HEMOGLOBIN A1C/HEMOGLO BIN.TOTAL IN BLOOD 5.5 4.0 - 6.0 03/18 Specimen Type: BLOOD No comment entered. Ordering Provider: Nicanor KENNEDY Report Released Date/Time: Mar 18, 2024 10:55 AM Reporting Lab: [address] [address] Performing Lab: [address] [address] [facility] LIPID PANEL (STL) CHOLESTEROL [MASS/VOLUM E] IN SERUM OR PLASMA 209 mg/dL 0 - 200 03/18 H Specimen Type: PLASMA Comment: No hemolysis noted. Ordering Provider: Nicanor KENNEDY Report Released Date/Time: Mar 18, 2024 10:55 AM Reporting Lab: [address] [address] Performing Lab: [address] [address] [facility] LIPID PANEL (STL) TRIGLYCERID E [MASS/VOLUM E] IN SERUM OR PLASMA 247 mg/dL 0 - 150 03/18 H Specimen Type: PLASMA Comment: No hemolysis noted. Ordering Provider: Nicanor KENNEDY Report Released Date/Time: Mar 18, 2024 10:55 AM Reporting Lab: [address] [address] Performing Lab: [address] [place] [address] [facility] LIPID PANEL (STL) CHOLESTEROL IN LDL [MASS/VOLUM E] IN SERUM OR PLASMA BY CALCULATION 106 mg/dL 03/18 Specimen Type: PLASMA Comment: No hemolysis noted. Ordering Provider: Nicanor KENNEDY Report Released Date/Time: Mar 18, 2024 10:55 AM Reporting Lab: [place] [address] Performing Lab: [place] [phone] [facility] LIPID PANEL (STL) CHOLESTEROL IN HDL [MASS/VOLUM E] IN SERUM OR PLASMA 54 mg/dL 40 03/18 Specimen Type: PLASMA Comment: No hemolysis noted. Ordering Provider: Nicanor KENNEDY Report Released Date/Time: Mar 18, 2024 10:55 AM Reporting Lab: [place] [address] Performing Lab: [place] [phone] [facility] TSH W/ REFLEX FT4 (STL) THYROTROPIN [UNITS/VOLU ME] IN SERUM OR PLASMA 0.605 u[IU]/ mL 0.47 - 5 03/18 Specimen Type: PLASMA No comment entered. Ordering Provider: Nicanor KENNEDY Report Released Date/Time: Mar 18, 2024 10:55 AM Reporting Lab: [address] [address] Performing Lab: [address] [phone] [place] [address] [facility] VITAMIN D, 25-HYDROXY 25-HYDROXYV ITAMIN D3 [MASS/VOLUM E] IN SERUM OR PLASMA 35.9 ng/mL 30 - 96 03/18 Specimen Type: SERUM No comment entered. Ordering Provider: Nicanor KENNEDY Report Released Date/Time: Mar 18, 2024 10:55 AM Reporting Lab: [address] [address] Performing Lab: [facility] [address] [facility] [address] [facility] HGA1C HEMOGLOBIN A1C/HEMOGLO BIN.TOTAL IN BLOOD 5.7 4.0 - 6.0 03/18 Specimen Type: BLOOD No comment entered. Ordering Provider: Nicanor KENNEDY Report Released Date/Time: Mar 18, 2023 09:16 AM Reporting Lab: [address] [address] Performing Lab: [address] [address] [facility] LIPID PANEL (STL) CHOLESTEROL [MASS/VOLUM E] IN SERUM OR PLASMA 219 mg/dL 0 - 200 03/18 H Specimen Type: PLASMA No comment entered. Ordering Provider: Nicanor KENNEDY Report Released Date/Time: Mar 18, 2023 09:16 AM Reporting Lab: [address] [address] Performing Lab: [address] [address] [facility] LIPID PANEL (STL) TRIGLYCERID E [MASS/VOLUM E] IN SERUM OR PLASMA 129 mg/dL 0 - 150 03/18 Specimen Type: PLASMA No comment entered. Ordering Provider: Nicanor KENNEDY Report Released Date/Time: Mar 18, 2023 09:16 AM Reporting Lab: [address] [address] Performing Lab: [address] [address] [facility] LIPID PANEL (STL) CHOLESTEROL IN LDL [MASS/VOLUM E] IN SERUM OR PLASMA BY CALCULATION 144 mg/dL 03/18 Specimen Type: PLASMA No comment entered. Ordering Provider: Nicanor KENNEDY Report Released Date/Time: Mar 18, 2023 09:16 AM Reporting Lab: [address] [address] Performing Lab: [address] [address] [facility] LIPID PANEL (STL) CHOLESTEROL IN HDL [MASS/VOLUM E] IN SERUM OR PLASMA 49 mg/dL 03/18 Specimen Type: PLASMA No comment entered. Ordering Provider: Nicanor KENNEDY Report Released Date/Time: Mar 18, 2023 09:16 AM Reporting Lab: [place] [phone] Performing Lab: [phone] [place] [address] CBOC TSH (MA-PB-STL ) THYROTROPIN [UNITS/VOLU ME] IN SERUM OR PLASMA 0.921 u[IU]/ mL 0.47 - 5 03/18 Specimen Type: SERUM No comment entered. Ordering Provider: Nicanor KENNEDY Report Released Date/Time: Mar 18, 2023 09:16 AM Reporting Lab: [address] [address] Performing Lab: [phone] [place] [address] CBOC COMPREHENS GUILLERMO METABOLIC PANEL CREATININE [MASS/VOLUM E] IN SERUM OR PLASMA 1.10 mg/dL 0.7 - 1.3 03/10 Specimen Type: PLASMA Comment: K result may show a positive bias due to hemolysis. Specimen slightly hemolyzed. Ordering Provider: NARINDER CARSON Report Released Date/Time: Mar 10, 2023 01:44 PM Reporting Lab: [address] [address] Performing Lab: [phone] [place] [address] COMPREHENS GUILLERMO METABOLIC PANEL UREA NITROGEN [MASS/VOLUM E] IN SERUM OR PLASMA 8 mg/dL 9 - 25 03/10 L Specimen Type: PLASMA Comment: K result may show a positive bias due to hemolysis. Specimen slightly hemolyzed. Ordering Provider: NARINDER CARSON Report Released Date/Time: Mar 10, 2023 01:44 PM Reporting Lab: [facility] [address] [facility] [address] Performing Lab: [facility] [address] [facility] [address] [facility] COMPREHENS GUILLERMO METABOLIC PANEL GLUCOSE [MASS/VOLUM E] IN SERUM OR PLASMA 84 mg/dL 72 - 99 03/10 Specimen Type: PLASMA Comment: K result may show a positive bias due to hemolysis. Specimen slightly hemolyzed. Ordering Provider: NARINDER CARSON Report Released Date/Time: Mar 10, 2023 01:44 PM Reporting Lab: [facility] [address] [facility] [address] Performing Lab: [facility] [address] [facility] [address] [facility] COMPREHENS GUILLERMO METABOLIC PANEL SODIUM [MOLES/VOLU ME] IN SERUM OR PLASMA 142 meq/L 136 - 145 03/10 Specimen Type: PLASMA Comment: K result may show a positive bias due to hemolysis. Specimen slightly hemolyzed. Ordering Provider: NARINDER CARSON Report Released Date/Time: Mar 10, 2023 01:44 PM Reporting Lab: [facility] [address] [facility] [address] Performing Lab: [facility] [address] [facility] [address] [facility] COMPREHENS GUILLERMO METABOLIC PANEL POTASSIUM [MOLES/VOLU ME] IN SERUM OR PLASMA 4.4 meq/L 3.5 - 5 03/10 Specimen Type: PLASMA Comment: K result may show a positive bias due to hemolysis. Specimen slightly hemolyzed. Ordering Provider: NARINDER CARSON Report Released Date/Time: Mar 10, 2023 01:44 PM Reporting Lab: [facility] [address] [facility] [address] Performing Lab: [facility] [address] [address] [facility] COMPREHENS GUILLERMO METABOLIC PANEL CHLORIDE [MOLES/VOLU ME] IN SERUM OR PLASMA 107 meq/L 98 - 107 03/10 Specimen Type: PLASMA Comment: K result may show a positive bias due to hemolysis. Specimen slightly hemolyzed. Ordering Provider: NARINDER CARSON Report Released Date/Time: Mar 10, 2023 01:44 PM Reporting Lab: [place] [address] [address] Performing Lab: [place] [address] [facility] [phone] COMPREHENS GUILLERMO METABOLIC PANEL CARBON DIOXIDE, TOTAL [MOLES/VOLU ME] IN SERUM OR PLASMA 25 meq/L 22 - 31 03/10 Specimen Type: PLASMA Comment: K result may show a positive bias due to hemolysis. Specimen slightly hemolyzed. Ordering Provider: NARINDER CARSON Report Released Date/Time: Mar 10, 2023 01:44 PM Reporting Lab: [place] [address] [address] Performing Lab: [place] [address] [facility] [phone] [place] [address] COMPREHENS GUILLERMO METABOLIC PANEL CALCIUM [MASS/VOLUM E] IN SERUM OR PLASMA 9.1 mg/dL 8.4 - 10.4 03/10 Specimen Type: PLASMA Comment: K result may show a positive bias due to hemolysis. Specimen slightly hemolyzed. Ordering Provider: NARINDER CARSON Report Released Date/Time: Mar 10, 2023 01:44 PM Reporting Lab: [place] [address] [address] Performing Lab: [place] [address] [address] [facility] [address] [facility] COMPREHENS GUILLERMO METABOLIC PANEL PROTEIN [MASS/VOLUM E] IN SERUM OR PLASMA 6.9 g/dL 6 - 8.6 03/10 Specimen Type: PLASMA Comment: K result may show a positive bias due to hemolysis. Specimen slightly hemolyzed. Ordering Provider: NARINDER CARSON Report Released Date/Time: Mar 10, 2023 01:44 PM Reporting Lab: [place] [address] [facility] [address] Performing Lab: [place] [address] [facility] [address] [facility] COMPREHENS GUILLERMO METABOLIC PANEL ALBUMIN [MASS/VOLUM E] IN SERUM OR PLASMA 4.2 g/dL 3.4 - 5 03/10 Specimen Type: PLASMA Comment: K result may show a positive bias due to hemolysis. Specimen slightly hemolyzed. Ordering Provider: NARINDER CARSON Report Released Date/Time: Mar 10, 2023 01:44 PM Reporting Lab: [place] [address] [address] Performing Lab: [place] [address] [facility] [phone] COMPREHENS GUILLERMO METABOLIC PANEL BILIRUBIN.T OTAL [MASS/VOLUM E] IN SERUM OR PLASMA 0.5 mg/dL 0.2 - 1.2 03/10 Specimen Type: PLASMA Comment: K result may show a positive bias due to hemolysis. Specimen slightly hemolyzed. Ordering Provider: NARINDER CARSON Report Released Date/Time: Mar 10, 2023 01:44 PM Reporting Lab: [place] [address] [facility] [address] Performing Lab: [place] [address] [facility] [phone] [place] [address] COMPREHENS GUILLERMO METABOLIC PANEL ALKALINE PHOSPHATASE [ENZYMATIC ACTIVITY/VO LUME] IN SERUM OR PLASMA 83 U/L 40 - 150 03/10 Specimen Type: PLASMA Comment: K result may show a positive bias due to hemolysis. Specimen slightly hemolyzed. Ordering Provider: NARINDER CARSON Report Released Date/Time: Mar 10, 2023 01:44 PM Reporting Lab: [place] [address] [facility] [address] Performing Lab: [place] [address] [facility] [address] [facility] COMPREHENS GUILLERMO METABOLIC PANEL ASPARTATE AMINOTRANSF ERASE [ENZYMATIC ACTIVITY/VO LUME] IN SERUM OR PLASMA 31 U/L 5 - 34 03/10 Specimen Type: PLASMA Comment: K result may show a positive bias due to hemolysis. Specimen slightly hemolyzed. Ordering Provider: NARINDER CARSON Report Released Date/Time: Mar 10, 2023 01:44 PM Reporting Lab: [address] [address] Performing Lab: [address] [address] [facility] COMPREHENS GUILLERMO METABOLIC PANEL ALANINE AMINOTRANSF ERASE [ENZYMATIC ACTIVITY/VO LUME] IN SERUM OR PLASMA 33 U/L 8 - 40 03/10 Specimen Type: PLASMA Comment: K result may show a positive bias due to hemolysis. Specimen slightly hemolyzed. Ordering Provider: NARINDER CARSON Report Released Date/Time: Mar 10, 2023 01:44 PM Reporting Lab: [address] [address] Performing Lab: [address] [address] [facility] COMPREHENS GUILLERMO METABOLIC PANEL GLOMERULAR FILTRATION RATE/1.73 SQ M.PREDICTED [VOLUME RATE/AREA] IN SERUM, PLASMA OR BLOOD BY CREATININE- BASED FORMULA (CKD-EPI 2020) 89.8 03/10 Specimen Type: PLASMA Comment: K result may show a positive bias due to hemolysis. Specimen slightly hemolyzed. Ordering Provider: NARINDER CARSON Report Released Date/Time: Mar 10, 2023 01:44 PM Reporting Lab: [address] [address] Performing Lab: [place] [address] [facility] [address] [facility] Vital Signs Combined list of inpatient [...] ADM Date DC Date Status Disposition Source [facility]( art Team 1007) OUTPATIENT [id number] HARVEY BAPTISTE 07/08 Released with Work/Duty Limitations [facility]( Smart Team 1007) [facility] [place]( art Team 1007) OUTPATIENT [id number] lft knee pain MIKE FORD 07/22 Released with Work/Duty Limitations [facility] [place]( Smart Team 1007) [facility]([place] Sick Call [facility] 237) OUTPATIENT [id number] L knee BEN BARNETT. 08/26 Released with Work/Duty Limitations [facility] [place]( [facility] Sick Call [facility] 237) [facility] [place] Sick Call [facility] 237) OUTPATIENT [id number] left knee AARTI STOVER 09/15 Released w/o Limitations [facility]( Militar y Sick Call [facility] 237) [facility]([place] [address]) OUTPATIENT [id number] pt c/o N/V. GUSTAVO SAMAYOA 09/16 Sick at Home/Quarter s [facility]( Militar y Sick Call [facility] 237) [facility]([place] S[place] [address]) OUTPATIENT [id number] f/u streap throat DARYASPRAMOD CHAUDHARY 10/03 Released w/o Limitations [facility]( Militar y Sick Call [facility] 237) [facility]([place] [address]) OUTPATIENT [id number] pt c/o left knee pain since bootcam p. AARTI STOVER 10/10 Released with Work/Duty Limitations [facility] [place] [address]([place] S[place] Call [place] [address]) OUTPATIENT [id number] knee f/u AARTI STOVER 10/20 Released with Work/Duty Limitations [facility] [place] [address]) [facility] Sick Call [place] [address]) OUTPATIENT [id number] eval for ffd GUSTAVO SAMAYOA 10/24 Released with Work/Duty Limitations [facility] 237) [facility]([place] S[place] Call [place] [address]) OUTPATIENT [id number] sore throat AARTI STOVER 10/29 Sick at Home/Quarter s [facility]( Militar y Sick Call [facility] 237) [facility]([place] S[place] [address]) OUTPATIENT [id number] f/u strep AARTI STOVER 10/30 Released w/o Limitations [facility]( Militar y Sick Call [facility] 237) [facility]([place] S[place] Call [place] [address]) OUTPATIENT [id number] f/u L knee AARTI STOVER 11/18 Released w/o Limitations [facility]( Militar y Sick Call [facility] 237) [facility](Ph ysical Therapy/2 37) OUTPATIENT [id number] JENIFFERBRET JACKSON Mahin 11/21 Released with Work/Duty Limitations [facility]( Physica l Therapy /237) [facility] OUTPATIENT [id number] PHYSICA L GUSTAVO VALLE 03/19 Released w/o Limitations [facility]) OUTPATIENT [id number] RITCHIE JULES 03/19 Released w/o Limitations [facility]) [facility] OUTPATIENT [id number] KOMAL SYED 03/19 Released w/o Limitations [facility]( [facility]) [facility]) OUTPATIENT [id number] SUB PHYS TAMIA DRUMMOND 03/31 Released w/o Limitations [facility]( [facility]) [facility](Gr [facility]ton Immunizat ion) OUTPATIENT [id number] Immuniz ations SAM PIRES E 04/08 Released w/o Limitations [facility]( [facility]) [facility]) OUTPATIENT [id number] SUB DUTY PE SIMON EDMODNSON 05/01 Released with Work/Duty Limitations [facility]( [facility] [place]([facility]) OUTPATIENT [id number] mental health clearan ce SIMON EDMONDSON 07/14 Released with Work/Duty Limitations [facility] [place]( [facility] [place]([facility]) OUTPATIENT [id number] R Hand injury LIZETH JENKINS 07/17 Released with Work/Duty Limitations [facility]( [facility]) [facility] [place](Immuniz ations [facility]) OUTPATIENT [id number] ppd/flu mist PASQUALE PLASCENCIA 08/28 Released w/o Limitations [facility](Imm unizati ons [facility] ) [facility](Immuniz ations [facility]) OUTPATIENT [id number] ppd read JAZZ DAVIS 08/31 Released w/o Limitations [facility](Imm unizati ons [facility] ) [facility] ER, [facility] [id number] ANA HANLEY Nicanor 01/15 RETURNED TO DUTY [facility](Nutriti on NMCP) INPATIENT [id number] CHIDI Sterling 01/19 Inpatient- Still a Patient [facility](Nut rition [facility]) [facility](Nutriti on NMCP) INPATIENT [id number] TF f/u CHIDI ROBERT 01/24 Inpatient- Still a Patient [facility](Nut rition [facility]) [facility](Infecti ous Disease [facility]) INPATIENT [id number] TETO GARCÍA 01/26 Inpatient- Still a Patient [facility](Inf ectious Disease [facility]) [facility](Nutriti on NMCP) INPATIENT [id number] TF f/u CHIDI ROBERT 01/27 Inpatient- Still a Patient [facility](Nut rition NM[facility]) [facility](Infecti ous Disease [facility]) INPATIENT [id number] ELIEL TANG 01/27 Inpatient- Still a Patient [facility](Inf ectious Disease [facility]) [facility](Cardiol ogy [facility]) INPATIENT [id number] LUZMARIA Gaming 01/28 Inpatient- Still a Patient [facility](Car diology NM[facility]) [facility](Social Work [facility]) INPATIENT [id number] Psycho- social assessm ent HECTOR DODGE 02/03 Inpatient- Still a Patient [facility](Soc ial Work NM[facility]) [facility] [place](Speech Pathology [facility]) INPATIENT [id number] Evaluat e for Ki Melba smith Valve ODALIS RODRIGUEZ H 02/07 Inpatient- Still a Patient [facility](Spe ech Patholo gy NMCP) [facility] [place] (Speech Pathology NM[facility]) INPATIENT [id number] AVM ODALIS RODRIGUEZ 02/08 Inpatient- Still a Patient [facility](Spe ech Patholo gy NMCP) [facility]) INPATIENT [id number] ODALIS RODRIGUEZ 02/09 Inpatient- Still a Patient [facility](Spe ech Patholo gy NMCP) [facility](Speech Pathology [facility]) INPATIENT [id number] ODALIS RODRIGUEZ 02/10 Inpatient- Still a Patient [facility](Spe ech Patholo gy NMCP) [facility](Occ Therapy NMCP) INPATIENT [id number] [facility] JAZZ CARTER. 02/10 Inpatient- Still a Patient [facility](Occ Therapy NMCP) [facility](Occ Therapy NMCP) INPATIENT [id number] [facility] JAZZ CARTER. 02/14 Inpatient- Still a Patient [facility](Occ Therapy NMCP) [facility](Occ Therapy NMCP) INPATIENT [id number] [facility] JAZZ CARTER. 02/14 Inpatient- Still a Patient [facility](Occ Therapy NMCP) [facility](Nutriti on NMCP) INPATIENT [id number] YOLANDA CEDEÑO A 02/15 Inpatient- Still a Patient [facility](Nut rition NMCP) [facility] Therapy [facility]) INPATIENT [id number] [facility] JAZZ CARTER. 02/16 [facility]- [facility](Occ Therapy NMCP) [facility](Speech [facility]ology [facility]) INPATIENT [id number] Re assess Swallow functio n ODALIS RODRIGUEZ H 02/16 Inpatient- Still a Patient [facility](Spe ech Patholo gy NMCP) [facility] [place] [facility](Occ Therapy NMCP) INPATIENT [id number] inp JAZZ Moe 02/16 Inpatient- Still a Patient [facility](Occ Therapy NMCP) [facility] [place] [facility](Speech Pathology NMCP) INPATIENT [id number] ODALIS RODRIGUEZ H 02/16 Inpatient- Still a Patient [facility](Spe ech Patholo gy NMCP) [facility] [place] [facility](Speech Pathology NM[facility]) INPATIENT [id number] Dysphag ia tx ODALIS RODRIGUEZ H 02/17 Inpatient- Usp Facility [facility] [place](Spe ech Patholo gy NMCP) [facility] [place] [facility](Case Managemen t [facility] [place] [facility]) OUTPATIENT [id number] CASE MANAGEM ENT LONG, IVANNA S 03/08 Released w/o Limitations [facility] [place] [facility](Dajuan e Managem ent [facility] [place] [facility] [place] [facility](Case Managemen t [facility] [place] [facility]) OUTPATIENT [id number] CASE MANAGEM ENT LONG, IVANNA S 03/09 Released w/o Limitations [facility] [place] [facility](Dajuan e Managem ent [facility]) [facility] [place] [facility](Case Mgmt Active Duty (AD)) OUTPATIENT [id number] CASE MANAGEM ENT LONG, IVANNA S 03/10 Released w/o Limitations [facility] [place](Dajuan e Mgmt Active Duty (AD)) [facility] [place] [facility](Case Mgmt Active Duty (AD)) OUTPATIENT [id number] LONG, IVANNA S 03/14 Released w/o Limitations [facility] [place](Dajuan e Mgmt Active Duty (AD)) [facility] [place](Case Mgmt Active Duty (AD)) OUTPATIENT [id number] CASE MANAGEM ENT LONG, IVANNA S 03/15 Released w/o Limitations [facility] [place](Dajuan e Mgmt Active Duty (AD)) [facility] [place](Case Managemen t [facility] [place] [facility]) OUTPATIENT [id number] CASE MANAGEM ENT LONG, IVANNA S 03/17 Released w/o Limitations [facility] [place](Dajuan e Managem ent [facility]) [facility] [place] [facility](Case Mgmt Active Duty (AD)) OUTPATIENT [id number] CASE MANAGEM ENT IVANNA CORTÉS S 03/18 Released w/o Limitations [facility] [place](Dajuan e Mgmt Active Duty (AD)) [facility] [place] [facility](Neurosu rgery NMCP) OUTPATIENT [id number] preangi o for 04/11/dc from [facility]/ms n leave BRUCEDEENAEN T 03/25 Released w/o Limitations [facility] [place] [facility](William rosurge ry NMCP) [facility] [place] [facility] [place]) OUTPATIENT [id number] bump under R armpit x 3 days MARYLU HODGES 04/05 Released w/o Limitations [facility] [place] ) [facility] [place] DIRECT TO MTF FROM OTHER THAN ER OR [facility] [id number] EDUIN TORRES RACHEL 04/11 [employer] [facility] [place] [facility]su [facility]gery [facility]) OUTPATIENT [id number] f/u after angiogr am 04/11 ANA HANLEY 04/14 Released w/o Limitations [facility] [place] [facility](William rosurge ry NMCP) [facility] [place] [facility] ADMISSION RESULTING FROM [facility], DIRECT TO MTF [id number] ANA HANLEY 04/19 RETURNED TO DUTY [facility] [place](Neurosu rgery [place]) TELE CONSULT [id number] please call pt post surgery . Dr.Cobe brown, perform ed surgery 2 weeks ago. CHELSEA NEAL 05/06 [facility] [place] [facility](William rosurge ry NMCP) [facility] [place] [facility](Case Managemen t [facility] [place] [facility]) OUTPATIENT [id number] Case Managem ent IVANNA CORTÉS S 05/06 Released w/o Limitations [facility] [place](Dajuan e Managem ent [facility]) [facility] [place](Neurosu rgery NM[facility]) TELE CONSULT [id number] pt would like for you to call him back, did not give details as to why. CHELSEA NEAL 05/23 [facility](William rosurge ry NMCP) [facility] [place](Neurosu rgery NMCP) OUTPATIENT [id number] 1st post op f/u; no xrays ANA HANLEY 05/31 Released w/o Limitations [facility](William rosurge ry NMCP) [facility]gery [facility]) TELE CONSULT [id number] QUESTIO N FOR YOU CHELSEA NEAL 06/22 [facility](William rosurge ry NMCP) [facility] [place]([facility] [place]) OUTPATIENT [id number] c/o hang nail ingrown on lt foot 3 wks ANUJ BONE 06/28 Released w/o Limitations [facility] [place] ) [facility]gery [facility]) TELE CONSULT [id number] Med board CHELSEA NEAL 07/22 [facility](William rosurge ry NMCP) [facility]urosu [facility]gery [facility]) TELE CONSULT [id number] Questio n CHELSEA NEAL 08/03 [facility](William rosurge ry NMCP) [facility](Case Mgmt Active Duty (AD)) OUTPATIENT [id number] Case Managem ent IVANNA CORTÉS S 08/16 Released w/o Limitations [facility](Dajuan e Mgmt Active Duty (AD)) [facility]mt Active [facility] (AD)) OUTPATIENT [id number] Case Managem ent MOO, IVANNA S 08/17 Released w/o Limitations [facility](Dajuan e Mgmt Active Duty (AD)) [facility] [place](Case Mgmt Active Duty (AD)) OUTPATIENT [id number] Case Managem ent IVANNA CORTÉS S 08/18 Released w/o Limitations [facility] [place]uan e Mgmt Active [facility] (AD)) [facility] [place](Case Mgmt Active Duty (AD)) OUTPATIENT [id number] Case Managem ent IVANNA CORTÉS S 08/19 Released w/o Limitations [facility] [place]uan e Mgmt Active Duty (AD)) [facility] [place] [facility] [place]) OUTPATIENT [id number] poss strep throat 2 days. TAMIA BALTAZAR 08/26 Released w/o Limitations [facility] [place] ) [facility] [place] [facility] [place]) OUTPATIENT [id number] sore throat, weaknes s x 8 days; already seen but not better DAKOTA MCCORMICK 09/01 Released w/o Limitations [facility] [place] [facility] [place] ) [facility] [place] [facility](Hearing [facility]) OUTPATIENT [id number] PAL MCLEOD 09/05 Released w/o Limitations [facility] [place] [facility](Hea ring Cons [facility]) [facility] [place] [facility](Immuniz ations [facility] [place]) OUTPATIENT [id number] ppd/flu mist KAREEN ARMENDARIZ 09/05 Released w/o Limitations [facility] [place] [facility](Imm unizati ons [facility] [place] ) [facility] [place] [facility](Case Mgmt Active Duty (AD)) OUTPATIENT [id number] Case Managem ent IVANNA CORTÉS S 09/05 Released w/o Limitations [facility] [place](Dajuan e Mgmt Active Duty (AD)) [facility] [place] [facility](Immuniz ations [facility] [place]) OUTPATIENT [id number] ppd check JESSICA SOSA 09/07 Released w/o Limitations [facility] [place] [facility](Imm unizati ons [facility] [place] ) [facility] [place] [facility](Neurosu [facility]gery [facility]) OUTPATIENT [id number] f/u EDUIN TORRES 10/04 Released with Work/Duty Limitations [facility] [place] [facility]ge [facility]) [facility] [place] [facility] [place] OUTPATIENT [id number] part 2 [facility] 10/06 Released w/o Limitations [facility] [place] [facility] [place] [place] [facility](Neurosu [facility]gery [facility]) TELE CONSULT [id number] DR. HANLEY PATIENT CHELSEA NEAL 10/20 [facility] [place] [facility]ge [facility] [place] [facility](Case Mgmt Active Duty (AD)) OUTPATIENT [id number] Case Managem ent IVANNA CORTÉS Neetu 10/26 Released w/o Limitations [facility] [place] [facility](Dajuan e Mgmt Active Duty (AD)) [facility] [place] [facility](Occ Therapy [facility]) OUTPATIENT [id number] AV TIAGOTE_MEREDITH SEN 10/26 Released w/o Limitations [facility] [place] [facility]Occ Therapy [facility]) [facility] [place] [facility](Occ Therapy [facility]) OUTPATIENT [id number] LILI MONTES 10/31 Released w/o Limitations [facility] [place] [facility](Occ Therapy [facility]) [facility] [place] [facility](Occ Therapy [facility]) OUTPATIENT [id number] PAULO CORTÉS 11/02 Released w/o Limitations [facility] [place] [facility](Occ Therapy [facility]) [facility] [place] [facility](Neurosu [facility]gery [facility]) TELE CONSULT [id number] CHELSEA Bryan 11/04 [facility] [place] [facility]ge ry [facility]) [facility] [place] [facility](Occ Therapy [facility]) OUTPATIENT [id number] PAULO CORTÉS 11/07 Released w/o Limitations [facility] [place] [facility](Occ Therapy [facility]) [facility] [place] [facility](Occ Therapy [facility]) OUTPATIENT [id number] LILI MONTES 11/09 [facility]ased w/o Limitations [facility]) [facility] [place] [facility](Neurosu [facility]gery [facility]) OUTPATIENT [id number] EDUIN TORRES 11/10 Released with Work/Duty Limitations [facility] [place] [facility]ge [facility]) [facility] [place] [facility]) OUTPATIENT [id number] Headach es since Sep 2008 DENISE BUSH 11/16 Released w/o Limitations [facility] [place] ) [facility] [place] [facility](Neurosu rgery [facility]) TELE CONSULT [id number] dr torres patient . HAN SHAH Radha 11/16 [facility](William rosurge ry [facility]) [facility] [place] [facility](Occ Therapy [facility]) OUTPATIENT [id number] LILI MONTES 11/17 Released w/o Limitations [facility](Occ Therapy [facility]) [facility] [facility](Neurosu rgery [facility]) TELE CONSULT [id number] pt status post brain hemmora ge now having difficu lt painful swallow ing. SHAYNA SHAHNATY Garcia 11/21 [facility](William rosurge ry [facility]) [facility] [facility](Occ Therapy [facility]) OUTPATIENT [id number] LILI MONTES 11/21 Released w/o Limitations [facility](Occ Therapy [facility]) [facility] [place] [facility](Case Mgmt Active Duty (AD)) OUTPATIENT [id number] Case Managem ent IVANNA CORTÉS 11/23 Released w/o Limitations [facility](Dajuan e Mgmt Active Duty (AD)) [facility] [place] [facility](Occ Therapy [facility]) OUTPATIENT [id number] PAULO CORTÉS 11/23 Released w/o Limitations [facility](Occ Therapy [facility]) [facility] OUTPATIENT [id number] H/A since Sep ZAINAB SHETH 11/24 Released w/o Limitations [facility] ) [facility] [place] [facility](Occ Therapy [facility] OUTPATIENT [id number] JOHN_MEREDITH SEN 11/25 Released w/o Limitations [facility] [place] [facility](Occ Therapy [facility]) [facility] [place] [facility](Case Mgmt Active Duty (AD)) OUTPATIENT [id number] Case Managem ent IVANNA CORTÉS S 12/26 Released w/o Limitations [facility] [place](Dajuan e Mgmt Active Duty (AD)) [facility] [place] [facility](Neurosu rgery [facility]) TELE CONSULT [id number] Hi patient CHELSEA NEAL 01/19 [facility] [place] [facility]ge [facility]) [facility] [place] [facility](Case Mgmt Active Duty (AD)) OUTPATIENT [id number] Case Managem ent IVANNA CORTÉS S 01/23 Released w/o Limitations [facility] [place](Dajuan e Mgmt Active Duty (AD)) [facility] [place] [facility](Experimental [facility] [employer]) OUTPATIENT [id number] 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 LATONYA MARADIAGA 02/02 Released w/o Limitations [facility] [place] [facility] [employer] ) [facility] [place] [facility](Experimental Psychologist [employer] [facility]) OUTPATIENT [id number] RENEE GREENWOOD 02/16 Released w/o Limitations [facility] [place] [facility](Phy s Ther [employer] [facility]) [facility] [place] [facility] [employer]) OUTPATIENT [id number] HARVEY KONG 02/24 Released w/o Limitations [facility] [place] [facility] [employer] ) [facility] [place] [facility](Case Mgmt Active Duty (AD)) OUTPATIENT [id number] Case Managem ent IVANNA CORTÉS S 02/24 Released w/o Limitations [facility] [place](Dajuan e Mgmt Active Duty (AD)) [facility] [place] [facility](Experimental [facility] [employer]) OUTPATIENT [id number] NORAH JIMENEZ V 02/28 [facility]ased w/o Limitations [facility] [place] [facility] [employer] ) [facility] [place] [facility] [employer]) OUTPATIENT [id number] HARVEY KONG 03/01 Released w/o Limitations [facility] [place] [facility] [employer] ) [facility] [place] [facility](Case Mgmt Active Duty (AD)) OUTPATIENT [id number] Case Managem ent IVANNA CORTÉS S 03/03 Released w/o Limitations [facility] [place] [facility](Dajuan e Mgmt Active Duty (AD)) [facility] [place] [facility] [employer]) OUTPATIENT [id number] HARVEY KONG 03/06 Released w/o Limitations [facility] [place] [facility] [employer] ) [facility] [place] [facility] [employer]) OUTPATIENT [id number] HARVEY KONG 03/13 Released w/o Limitations [facility] [place] [facility] [employer] ) [facility] [place] [facility] [employer]) OUTPATIENT [id number] NORAH JIMENEZ V 03/14 Released w/o Limitations [facility] [place] [facility] [employer] ) [facility] [place] [facility](Experimental [facility] [employer]) OUTPATIENT [id number] HARVEY KONG 03/15 Released w/o Limitations [facility] [place] [facility] [employer] ) [facility] [place] [facility] [employer]) OUTPATIENT [id number] NORAH JIMENEZ V 03/21 Released w/o Limitations [facility] [place] [facility] [employer] ) [facility] [place] [facility] [employer]) OUTPATIENT [id number] HARVEY KONG 03/27 Released w/o Limitations [facility] [place] [facility] [employer] ) [facility] [place] [facility] [employer]) OUTPATIENT [id number] ELVIA JEFFERS 04/12 Released w/o Limitations [facility] [place] [employer] ) [facility] [place] [facility] [employer]) OUTPATIENT [id number] ELVIA JEFFERS 04/14 Released w/o Limitations [facility] [place] [facility] [employer] ) [facility] [place] [facility](Case Mgmt Active Duty (AD)) OUTPATIENT [id number] Case Managem ent IVANNA CORTÉS S 04/17 Released w/o Limitations [facility] [place] [facility](Dajuan e Mgmt Active Duty (AD)) [facility] [place] [facility] TELE CONSULT [id number] pt has shashank boucher medical board HAN SHAH Radha 05/22 [facility]) [facility] [place] [facility](Neurosu rgery [facility]) OUTPATIENT [id number] f/u for med boards ANA HANLEY 05/24 Released w/o Limitations [facility](William rosurge ry [facility]) [facility] [place] [facility](Case Mgmt Active Duty (AD)) OUTPATIENT [id number] Case Managem ent IVANNA CORTÉS S 05/29 Released w/o Limitations [facility](Dajuan e Mgmt Active Duty (AD)) [facility] [place] [facility](Phys Exam [place] [facility]) OUTPATIENT [id number] CHRIS Bartholomew S 06/01 Released w/o Limitations [facility] [place] [place] [facility] [employer]) OUTPATIENT [id number] SIDNEY DICKERSON 06/01 Released w/o Limitations [facility](Hea ring Cons [place] [employer]) [facility] [place]) OUTPATIENT [id number] sore throat x 4 days MEREDITH PAGE 06/16 Sick at Home/Quarter s [facility] [place] ) [facility] [place] [facility](Neurosu rgery [facility]) TELE CONSULT [id number] bruce fontenot. would like to discuss med board. info cnt#[id number] [id number] ÁNGEL CHELSEA L 06/23 [facility]ge ry [facility]) [facility] [place] (Case Mgmt Active Duty (AD)) OUTPATIENT [id number] Case Managem ent IVANNA CORTÉS S 08/01 Released w/o Limitations [facility](Dajuan e Mgmt Active Duty (AD)) [facility] [place] [facility] [place]) OUTPATIENT [id number] RIGHT WRIST PAIN ZAINAB SHETH T 08/02 Released w/o Limitations [facility] [place] ) [facility] [place] [facility](Optomet ry [employer]) OUTPATIENT [id number] eye exam DOROTHY SUH NMN 08/04 Released w/o Limitations [facility](Opt ometry [place]) [facility](Immuniz ation [facility]) OUTPATIENT [id number] Adult Imms - Flumist LISA PRASAD N P 08/17 Released w/o Limitations [facility](Imm unizati on [place]) [facility](Neurosu rgery [place]) TELE CONSULT [id number] Dr.Cobe brown pt. Mrs. Harvey rubio of Med Boards request ing consult for pt. CHELSEA NEAL Mahin 08/28 [facility](William rosurge ry [place]) [facility](Neurosu rgery [place]) TELE CONSULT [id number] PEB request PT HAN SHAH Radha 09/04 [facility](William rosurge ry [place]) [facility](Experimental Psychologist [facility]) OUTPATIENT [id number] TAMIA CARMONA 09/05 Released w/o Limitations [facility](Phy s Ther [place]) [facility](Occ Therapy [place]) OUTPATIENT [id number] AVM bleed PAL NIEVES 09/12 Released w/o Limitations [facility](Occ Therapy [place]) [facility](Case Mgmt Active Duty (AD)) OUTPATIENT [id number] Case Managem ent IVANNA CORTÉS 09/21 Released w/o Limitations [facility](Dajuan e Mgmt Active Duty (AD)) [facility] OUTPATIENT [id number] UPDATE LIMITED PROFILE FOR ZAINAB JACOME 11/01 Released w/o Limitations [facility] [place] ) [facility](Immuniz ations [facility]) OUTPATIENT [id number] VACCINE S WILTON SILVA 11/15 Released w/o Limitations [facility](Immuniz ations [facility]) OUTPATIENT [id number] vaccine JESSICA SOSA 11/21 Released w/o Limitations [facility](Imm unizati ons [facility] ) [facility]([place] Screening [place]) OUTPATIENT [id number] MEDICAL ASSIGNM ENT SCREEN (STANDB Y) KERRI TREJO 11/24 Released w/o Limitations [facility](Ove rseas Screeni ng [place] ) [facility]) OUTPATIENT [id number] Pain in tonsils /throat , hot flashes IRENE FERGUSON 11/28 Released w/o Limitations [facility] ) [facility](Neurosu rgery [place]) TELE CONSULT [id number] pt's CO would like to speak with Dr Hanley [phone] CHELSEA NEAL 11/30 [facility](William rosurge ry [place]) [facility](Neurosu rgery [place]) OUTPATIENT [id number] f/u ANA HANLEY 12/01 Released w/o Limitations [facility](William rosurge ry [place]) [facility](Primary Care Clinic [facility]) OUTPATIENT [id number] R MAGAÑA PAIN ZAINAB SHETH T 12/05 Released w/o Limitations [facility] ) [facility](Case Mgmt Active Duty (AD)) OUTPATIENT [id number] Case Managem ent LONG, IVANNA S 12/15 Released w/o Limitations [facility](Dajuan e Mgmt Active Duty (AD)) [facility](Immuniz ations [facility]) OUTPATIENT [id number] vaccine CIERA FOREMAN 01/09 Released w/o Limitations [facility](Imm unizati ons [facility] ) [facility]) OUTPATIENT [id number] Chest Pain EMMA WHALEY EDWARD 01/17 Released w/o Limitations [facility] ) [facility]) OUTPATIENT [id number] Injured right foot during PT x 5 days AYAD JEAN Son 02/21 Released w/o Limitations [facility] ) [facility](Primary Care [facility]) OUTPATIENT [id number] f/u xray results ZAINAB SHETH 03/06 Released w/o Limitations [facility] ) [facility](Neurosu afshin [facility]) TELE CONSULT [id number] Dr Hanley Pt . needs form stating he can fly. Pt leaving for [place] on 7-6 ÁNGELCHELSEA DEVI 03/26 [facility](William rosurge ry [place]) [facility]) OUTPATIENT [id number] sore throat EMMA WHALEY EDWARD 03/28 Released w/o Limitations [facility] ) [facility]) OUTPATIENT [id number] seen yesterd ay for sorethr oat today throat is worse BRENT HARRISON 03/29 Released w/o Limitations [facility] ) [facility](Immuniz ations [facility]) OUTPATIENT [id number] vaccine JAZZ DAVIS 05/09 Released w/o Limitations [facility](Imm unizati ons [facility] ) [facility](Primary Care Clinic [facility]) OUTPATIENT [id number] R FOOT EVALUAT ION ZAINAB SHETH 05/15 Released w/o Limitations [facility] ) [facility](Immuniz ations [facility]) OUTPATIENT [id number] vaccine KAREEN ARMENDARIZ 05/21 Released w/o Limitations [facility](Imm unizati ons [facility] [place] ) [facility](Phys Exam [place] [facility]) OUTPATIENT [id number] SEPARAT ION PHYSICA L [id number] CHRIS CHONG 05/22 Released w/o Limitations [facility](Phy s Exam [place] [facility]) [facility](Neurosu rgery [place]) TELE CONSULT [id number] Pt c/o of more frequen t paralys is, since surgery . 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 HAN SHAH 08/01 [facility](William rosurge ry [place]) [facility] OFFICE O/P EST MOD 30 MIN [id number] Diagnos is: ICD-10- CM G40.89 Other seizure s Radha OSBORNE 10/07 [facility] Outpatient Encounter [id number] 10/[address] 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 Outpatient Encounter [id number] 03/[address] [facility] Outpatient Encounter [id number] CHRISTINE SALDIVAR 03/[address] [facility] OFFICE O/P EST LOW 20 MIN [id number] Diagnos is: ICD-10- CM Z00.00 Encntr for general adult medical exam w/o abnorma l finding s BRENT,Nicanor FAM L 03/18 [facility] Outpatient Encounter [id number] 04/[address] [facility] Outpatient Encounter [id number] 07/[address] [facility] Outpatient Encounter [id number] 09/[address] [facility] Procedures Combined list of: 1) Procedures from Department of Veterans Affairs facilities going back up to thelast 18 months, not all [place] non-surgical procedures are included; 2) All procedures from the Department of Defense facilities. Procedure Procedure Type Code Date Perfomer Comments Sourc e THERAPEUTIC PROCEDURE, 1 OR MORE AREAS, EACH 15 MINUTES; THERAPEUTIC EXERCISES TO DEVELOP STRENGTH AND ENDURANCE, RANGE OF MOTION AND FLEXIBILITY 2006 [facility] BUPRENORPHINE IMPLANT, 74.2 MG 2006 [facility] INDIVIDUAL PSYCHOTHERAPY, INSIGHT ORIENTED, BEHAVIOR MODIFYING AND/OR SUPPORTIVE, IN AN OFFICE OR OUTPATIENT FACILITY, APPROXIMATELY 20 TO 30 MINUTES [id number] WITH THE PATIENT 2006 [facility] PSYCHOLOGICAL TSTING (INCL PSYCHODIAG ASSESSMNT, EMOTITY, INTELLECTUAL ABILITIES, PERSONALITY &PSYCHOPATHOLOGY, EG, MMPI), ADMINISTERED COMPUTER, W QUALIFIED [employer]ALTH [employer] SERVICES COORDINATOR INTERPRET &RPT 2006 [facility] PSYCHIATRIC DIAGNOSTIC INTERVIEW EXAMINATION 2006 [facility] THERAPEUTIC PROCEDURE, 1 OR MORE AREAS, EACH 15 MINUTES; THERAPEUTIC EXERCISES TO DEVELOP STRENGTH AND ENDURANCE, RANGE OF MOTION AND FLEXIBILITY 2005 [facility] ORAL THERMOMETER, REUSABLE, ANY TYPE, EACH 2005 [facility] TYPHOID VACCINE, CAPSULAR POLYSACCHARIDE (VICPS), FOR INTRAMUSCULAR USE 2005 [facility] BUPRENORPHINE IMPLANT, 74.2 MG 2005 [facility] SCREENING TEST OF VISUAL ACUITY, QUANTITATIVE, BILATERAL 2005 [facility] AUDIOMETRIC TESTING OF GROUPS 2005 [facility] SKIN TEST; TUBERCULOSIS, INTRADERMAL 2005 [facility] INDIVIDUAL PSYCHOTHERAPY, INSIGHT ORIENTED, BEHAVIOR MODIFYING AND/OR SUPPORTIVE, IN AN OFFICE OR OUTPATIENT FACILITY, APPROXIMATELY 20 TO 30 MINUTES [id number] WITH THE PATIENT 2006 [facility] PSYCHIATRIC DIAGNOSTIC INTERVIEW EXAMINATION 2006 [facility] IMMUNIZATION ADMINISTRATION (INCLUDES PERCUTANEOUS, INTRADERMAL, SUBCUTANEOUS, OR INTRAMUSCULAR INJECTIONS); 1 VACCINE (SINGLE OR COMBINATION VACCINE/TOXOID) 2006 [facility] PURE TONE AUDIOMETRY (THRESHOLD); AIR ONLY 2006 [facility] DETERMINATION OF REFRACTIVE STATE 2006 [facility] SKIN TEST; TUBERCULOSIS, INTRADERMAL 2009 [facility] SKIN TEST; TUBERCULOSIS, INTRADERMAL 2009 [facility] ELECTROCARDIOGRAM, ROUTINE ECG WITH AT LEAST 12 LEADS; WITH INTERPRETATION AND REPORT 2009 [facility] SKIN TEST; TUBERCULOSIS, INTRADERMAL 2009 [facility] CASE MANAGEMENT, EACH 15 MINUTES 2009 [facility] IMMUNIZATION ADMINISTRATION (INCLUDES PERCUTANEOUS, INTRADERMAL, SUBCUTANEOUS, OR INTRAMUSCULAR INJECTIONS); EACH ADDITIONAL VACCINE (SINGLE OR COMBINATION VACCINE/TOXOID) 2009 [facility] CASE MANAGEMENT, EACH 15 MINUTES 2008 [facility] OCCUPATIONAL THERAPY EVALUATION 2008 [facility] PHYSICAL THERAPY RE-EVALUATION 2008 [facility] INFLUENZA VIRUS VACCINE, TRIVALENT, LIVE (LAIV3), FOR INTRANASAL USE 2008 [facility] FITTING OF SPECTACLES, EXCEPT FOR APHAKIA; MONOFOCAL 2008 [facility] COORDINATED CARE FEE, RISK ADJUSTED MAINTENANCE, LEVEL 4 2008 [facility] HANDLING AND/OR CONVEYANCE OF SPECIMEN FOR TRANSFER FROM THE OFFICE TO A LABORATORY 2008 [facility] SCREENING TEST, PURE TONE, AIR ONLY 2008 [facility] COORDINATED CARE FEE, RISK ADJUSTED MAINTENANCE, LEVEL 4 2008 [facility] COORDINATED CARE FEE, RISK ADJUSTED MAINTENANCE, LEVEL 4 2008 [facility] THERAPEUTIC PROCEDURE, 1 OR MORE AREAS, EACH 15 MINUTES; THERAPEUTIC EXERCISES TO DEVELOP STRENGTH AND ENDURANCE, RANGE OF MOTION AND FLEXIBILITY 2008 [facility] THERAPEUTIC PROCEDURE, 1 OR MORE AREAS, EACH 15 MINUTES; THERAPEUTIC EXERCISES TO DEVELOP STRENGTH AND ENDURANCE, RANGE OF MOTION AND FLEXIBILITY 2008 [facility] SELF-CARE/HOME MANAGMENT TRAIN (EG,ACT OF DAILY [...] MINUTES; AQUATIC THERAPY WITH THERAPEUTIC EXERCISES 2008 [facility] PHYSICAL THERAPY EVALUATION 2008 [facility] COORDINATED CARE FEE, RISK ADJUSTED MAINTENANCE, LEVEL 4 2008 [facility] CASE MANAGEMENT, EACH 15 MINUTES 2008 [facility] OCCUPATIONAL THERAPY RE-EVALUATION 2008 [facility] THERAPEUTIC [...] WISC CARD SORT TST),/HR OF PSYCHOLOGIST/PHYS TIME,BOTH [id number] ADMIN TST TO PAT & TIME INTERP [...] WISC CARD SORT TST),/HR OF PSYCHOLOGIST/PHYS TIME,BOTH [id number] ADMIN TST TO PAT & TIME INTERP TEST RES & PREP RPT 2008 [facility] THERAPEUTIC PROCEDURE, 1 OR MORE AREAS, EACH 15 MINUTES; THERAPEUTIC EXERCISES TO DEVELOP STRENGTH AND ENDURANCE, RANGE OF MOTION AND FLEXIBILITY 2008 [facility] COORDINATED CARE FEE, RISK ADJUSTED MAINTENANCE, LEVEL 3 2008 [facility] UNLISTED SPECIAL SERVICE, PROCEDURE OR REPORT 2008 [facility] PSYCHOLOGICAL TSTING (INCL PSYCHODIAG ASSESSMNT, EMOTITY, INTELLECTUAL ABILITIES, PERSONALITY &PSYCHOPATHOLOGY, EG, MMPI), ADMINISTERED COMPUTER, W QUALIFIED HEALTH [employer] SERVICES COORDINATOR INTERPRET &RPT 2008 [facility] PSYCHIATRIC DIAGNOSTIC INTERVIEW EXAMINATION 2008 [facility] SCREENING TEST OF VISUAL ACUITY, QUANTITATIVE, BILATERAL 2008 [facility] COORDINATED CARE FEE, RISK ADJUSTED MAINTENANCE, LEVEL 3 2007 [facility] IMMUNIZATION ADMINISTRATION BY INTRANASAL OR ORAL ROUTE; 1 VACCINE (SINGLE OR COMBINATION VACCINE/TOXOID) 2007 [facility] AUDIOMETRIC TESTING OF GROUPS 2007 [facility] COLLECTION OF VENOUS BLOOD BY VENIPUNCTURE 2007 [facility] HANDLING AND/OR CONVEYANCE OF SPECIMEN FOR TRANSFER FROM THE OFFICE TO A LABORATORY 2007 DoD CASE MANAGEMENT, EACH 15 MINUTES 2007 DoD CASE MANAGEMENT, EACH 15 MINUTES 2007 DoD CASE MANAGEMENT, EACH 15 MINUTES 2007 DoD COORDINATED CARE FEE, RISK ADJUSTED MAINTENANCE 2007 DoD CASE MANAGEMENT, EACH 15 MINUTES 2007 [facility] OTHER EXCISION OR DESTRUCTION OF LESION OR TISSUE OF BRAIN 2007 [facility] COMPUTERIZED AXIAL TOMOGRAPHY OF HEAD 2007 [facility] ARTERIOGRAPHY OF CEREBRAL ARTERIES 2007 [facility] OTHER CRANIECTOMY 2007 DoD POSTOPERATIVE FOLLOW-UP VISIT, NORMALLY INCLUDED IN THE SURGICAL PACKAGE, INDICATE THAT EVALUATION & MANAGEMENT SERVICE WAS PERFORMED DURING A POSTOPERATIVE PERIOD REASON RELATED ORIGINAL PROCEDURE 2007 [facility] SELF-CARE/HOME MANAGMENT TRAIN (EG,ACT OF DAILY LIVING (ADL) &COMPENSAT TRAIN,MEAL PREPARATION,SAFETY PROCS,AND INSTRUCT IN USE OF ASST TECHNOLOGY DEV/ADPT EQUIP) DIR ONE-ON-ONE CONT,EA 15 MINUTES 2007 DoD POSTOPERATIVE FOLLOW-UP VISIT, NORMALLY INCLUDED IN THE SURGICAL PACKAGE, INDICATE THAT EVALUATION & MANAGEMENT SERVICE WAS PERFORMED DURING A POSTOPERATIVE PERIOD REASON RELATED ORIGINAL PROCEDURE 2007 [facility] SURGERY OF INTRACRANIAL ARTERIOVENOUS MALFORMATION; SUPRATENTORIAL, SIMPLE 2007 DoD UNLISTED SPECIAL SERVICE, PROCEDURE OR REPORT 2007 DoD CASE MANAGEMENT, EACH 15 MINUTES 2007 DoD CASE MANAGEMENT, EACH 15 MINUTES 2007 DoD CASE MANAGEMENT, EACH 15 MINUTES 2007 DoD CASE MANAGEMENT, EACH 15 MINUTES 2007 DoD CASE MANAGEMENT, EACH 15 MINUTES 2007 DoD CASE MANAGEMENT, EACH 15 MINUTES 2007 DoD TEMPORARY TRACHEOSTOMY 02/17 [facility] CLOSED [ENDOSCOPIC] BIOPSY OF BRONCHUS 2007 [facility] VENOUS CATHETERIZATION, NOT ELSEWHERE CLASSIFIED 2007 [facility] PERCUTANEOUS [ENDOSCOPIC] GASTROSTOMY [PEG] 2007 [facility] COMPUTERIZED AXIAL TOMOGRAPHY OF HEAD 2007 [facility] COMPUTERIZED AXIAL TOMOGRAPHY OF THORAX 2007 [facility] COMPUTERIZED AXIAL TOMOGRAPHY OF ABDOMEN 2007 [facility] ARTERIOGRAPHY OF CEREBRAL ARTERIES 2007 [facility] DIAGNOSTIC ULTRASOUND OF HEART 2007 [facility] OTHER DIAGNOSTIC ULTRASOUND 2007 [facility] RESPIRATORY MEDICATION ADMINISTERED BY NEBULIZER 2007 [facility] OTHER OXYGEN ENRICHMENT 01/28 [facility] INSERTION OF ENDOTRACHEAL TUBE 2007 [facility] OTHER LAVAGE OF BRONCHUS AND TRACHEA 2007 [facility] ENTERAL INFUSION OF CONCENTRATED NUTRITIONAL SUBSTANCES 2007 [facility] CONTINUOUS MECHANICAL VENTILATION FOR 96 CONSECUTIVE HOURS OR MORE 2007 [facility] INJECTION OF ANTICOAGULANT 2007 [facility] INJECTION OF ANTIBIOTIC 01/28 [facility] OTHER INCISION OF BRAIN 01/28 [facility] VENTRICULOSTOMY 2007 [facility] TREATMENT OF SWALLOWING DYSFUNCTION AND/OR ORAL FUNCTION FOR FEEDING 2007 [facility] POSTOPERATIVE FOLLOW-UP VISIT, NORMALLY INCLUDED IN THE SURGICAL PACKAGE, INDICATE THAT EVALUATION & MANAGEMENT SERVICE WAS PERFORMED DURING A POSTOPERATIVE PERIOD REASON RELATED ORIGINAL PROCEDURE 2007 [facility] THERAPEUTIC PROCEDURE,1 OR MORE AREAS,EACH 15 MINUTES;NEUROMUSCULAR REEDUCATION OF MOVEMENT,BALANCE,COORDI NATION,KINESTHETIC SENSE,POSTURE,AND/OR PROPRIOCEPTION FOR SITTING AND/OR STANDING ACTIVITIES 2007 [facility] TREATMENT OF SWALLOWING DYSFUNCTION AND/OR ORAL FUNCTION FOR FEEDING 2007 [facility] THERAPEUTIC PROCEDURE, 1 OR MORE AREAS, EACH 15 MINUTES; GAIT TRAINING (INCLUDES STAIR CLIMBING) 2007 [facility] POSTOPERATIVE FOLLOW-UP VISIT, NORMALLY INCLUDED IN THE SURGICAL PACKAGE, INDICATE THAT EVALUATION & MANAGEMENT SERVICE WAS PERFORMED DURING A POSTOPERATIVE PERIOD REASON RELATED ORIGINAL PROCEDURE 2007 [facility] SELF-CARE/HOME MANAGMENT TRAIN (EG,ACT OF DAILY LIVING (ADL) &COMPENSAT TRAIN,MEAL PREPARATION,SAFETY PROCS,AND INSTRUCT IN USE OF ASST TECHNOLOGY DEV/ADPT EQUIP) DIR ONE-ON-ONE CONT,EA 15 MINUTES 2007 [facility] THERAPEUTIC PROCEDURE, 1 OR MORE AREAS, EACH 15 MINUTES; GAIT TRAINING (INCLUDES STAIR CLIMBING) 2007 [facility] MEDICAL NUTRITION THERAPY; RE-ASSESSMENT AND INTERVENTION, INDIVIDUAL, [id number] WITH THE PATIENT, EACH 15 MINUTES 2007 [facility] SELF-CARE/HOME MANAGMENT TRAIN (EG,ACT OF DAILY LIVING (ADL) &COMPENSAT TRAIN,MEAL PREPARATION,SAFETY PROCS,AND INSTRUCT IN USE OF ASST TECHNOLOGY DEV/ADPT EQUIP) DIR ONE-ON-ONE CONT,EA 15 MINUTES 2007 [facility] THERAPEUTIC ACTIVITIES, DIRECT (ONE-ON-ONE) PATIENT CONTACT (USE OF DYNAMIC ACTIVITIES TO IMPROVE FUNCTIONAL PERFORMANCE), EACH 15 MINUTES 2007 [facility] POSTOPERATIVE FOLLOW-UP VISIT, NORMALLY INCLUDED IN THE SURGICAL PACKAGE, INDICATE THAT EVALUATION & MANAGEMENT SERVICE WAS PERFORMED DURING A POSTOPERATIVE PERIOD REASON RELATED ORIGINAL PROCEDURE 2007 DoD POSTOPERATIVE FOLLOW-UP VISIT, NORMALLY INCLUDED IN THE SURGICAL PACKAGE, INDICATE THAT EVALUATION & MANAGEMENT SERVICE WAS PERFORMED DURING A POSTOPERATIVE PERIOD REASON RELATED ORIGINAL PROCEDURE 2007 [facility] PHYSICAL THERAPY RE-EVALUATION 2007 DoD POSTOPERATIVE FOLLOW-UP VISIT, NORMALLY INCLUDED IN THE SURGICAL PACKAGE, INDICATE THAT EVALUATION & MANAGEMENT SERVICE WAS PERFORMED DURING A POSTOPERATIVE PERIOD REASON RELATED ORIGINAL PROCEDURE 2007 [facility] THERAPEUTIC ACTIVITIES, DIRECT (ONE-ON-ONE) PATIENT CONTACT (USE OF DYNAMIC ACTIVITIES TO IMPROVE FUNCTIONAL PERFORMANCE), EACH 15 MINUTES 2007 [facility] TREATMENT OF SWALLOWING DYSFUNCTION AND/OR ORAL FUNCTION FOR FEEDING 2007 DoD POSTOPERATIVE FOLLOW-UP VISIT, NORMALLY INCLUDED IN THE SURGICAL PACKAGE, INDICATE THAT EVALUATION & MANAGEMENT SERVICE WAS PERFORMED DURING A POSTOPERATIVE PERIOD REASON RELATED ORIGINAL PROCEDURE 2007 [facility] THERAPEUTIC ACTIVITIES, DIRECT (ONE-ON-ONE) PATIENT CONTACT (USE OF DYNAMIC ACTIVITIES TO IMPROVE FUNCTIONAL PERFORMANCE), EACH 15 MINUTES 2007 [facility] THERAPEUTIC PROCEDURE, 1 OR MORE AREAS, EACH 15 MINUTES; THERAPEUTIC EXERCISES TO DEVELOP STRENGTH AND ENDURANCE, RANGE OF MOTION AND FLEXIBILITY 2007 [facility] TREATMENT OF SWALLOWING DYSFUNCTION AND/OR ORAL FUNCTION FOR FEEDING 2007 [facility] POSTOPERATIVE FOLLOW-UP VISIT, NORMALLY INCLUDED IN THE SURGICAL PACKAGE, INDICATE THAT EVALUATION & MANAGEMENT SERVICE WAS PERFORMED DURING A POSTOPERATIVE PERIOD REASON RELATED ORIGINAL PROCEDURE 2007 DoD POSTOPERATIVE FOLLOW-UP VISIT, NORMALLY INCLUDED IN THE SURGICAL PACKAGE, INDICATE THAT EVALUATION & MANAGEMENT SERVICE WAS PERFORMED DURING A POSTOPERATIVE PERIOD REASON RELATED ORIGINAL PROCEDURE 2007 [facility] THERAPEUTIC ACTIVITIES, DIRECT (ONE-ON-ONE) PATIENT CONTACT (USE OF DYNAMIC ACTIVITIES TO IMPROVE FUNCTIONAL PERFORMANCE), EACH 15 MINUTES 2007 [facility] TREATMENT OF SPEECH, LANGUAGE, VOICE, COMMUNICATION, AND/OR AUDITORY PROCESSING DISORDER; INDIVIDUAL 2007 [facility] MEDICAL NUTRITION THERAPY; RE-ASSESSMENT AND INTERVENTION, INDIVIDUAL, [id number] WITH THE PATIENT, EACH 15 MINUTES 2007 [facility] OCCUPATIONAL THERAPY EVALUATION 2007 [facility] THERAPEUTIC ACTIVITIES, DIRECT (ONE-ON-ONE) PATIENT CONTACT (USE OF DYNAMIC ACTIVITIES TO IMPROVE FUNCTIONAL PERFORMANCE), EACH 15 MINUTES 2007 [facility] TRACHEOSTOMY SPEAKING VALVE 2007 [facility] POSTOPERATIVE FOLLOW-UP VISIT, NORMALLY INCLUDED IN THE SURGICAL PACKAGE, INDICATE THAT EVALUATION & MANAGEMENT SERVICE WAS PERFORMED DURING A POSTOPERATIVE PERIOD REASON RELATED ORIGINAL PROCEDURE 2007 [facility] PHYSICAL THERAPY EVALUATION 2007 DoD TRACHEOSTOMY SPEAKING VALVE 2007 DoD POSTOPERATIVE FOLLOW-UP VISIT, NORMALLY INCLUDED IN THE SURGICAL PACKAGE, INDICATE THAT EVALUATION & MANAGEMENT SERVICE WAS PERFORMED DURING A POSTOPERATIVE PERIOD REASON RELATED ORIGINAL PROCEDURE 2007 [facility] PHYSICAL THERAPY EVALUATION 2007 DoD HEALTH&BEHAV ASSESSMENT (EG, HEALTH-FOC CLINICAL INTERVIEW, BEHAVIORAL OBSERVATIONS, PSYCHOPHYSICOLOGICAL MONITOR, HEALTH-ORIENT QUESTIONNAIRES), EA 15 MIN [id number] W THE PATIENT; INIT ASSESSMENT 2007 [facility] MEDICAL NUTRITION THERAPY; RE-ASSESSMENT AND INTERVENTION, INDIVIDUAL, [id number] WITH THE PATIENT, EACH 15 MINUTES 2007 [facility] INSERTION OF GASTROSTOMY TUBE, PERCUTANEOUS, UNDER FLUOROSCOPIC GUIDANCE INCLUDING CONTRAST INJECTION(S), IMAGE DOCUMENTATION AND REPORT 2007 [facility] MEDICAL NUTRITION THERAPY; RE-ASSESSMENT AND INTERVENTION, INDIVIDUAL, [id number] WITH THE PATIENT, EACH 15 MINUTES 2007 [facility] MEDICAL NUTRITION THERAPY; RE-ASSESSMENT AND INTERVENTION, INDIVIDUAL, [id number] WITH THE PATIENT, EACH 15 MINUTES 2007 [facility] POSTOPERATIVE FOLLOW-UP VISIT, NORMALLY INCLUDED IN THE SURGICAL PACKAGE, INDICATE THAT EVALUATION & MANAGEMENT SERVICE WAS PERFORMED DURING A POSTOPERATIVE PERIOD REASON RELATED ORIGINAL PROCEDURE 2007 DoD POSTOPERATIVE FOLLOW-UP VISIT, NORMALLY INCLUDED IN THE SURGICAL PACKAGE, INDICATE THAT EVALUATION & MANAGEMENT SERVICE WAS PERFORMED DURING A POSTOPERATIVE PERIOD REASON RELATED ORIGINAL PROCEDURE 2007 [facility] CRANIECTOMY OR CRANIOTOMY FOR EVACUATION OF HEMATOMA, SUPRATENTORIAL; INTRACEREBRAL 2007 [facility] MEDICAL NUTRITION THERAPY; RE-ASSESSMENT AND INTERVENTION, INDIVIDUAL, [id number] WITH THE PATIENT, EACH 15 MINUTES 2007 [facility] SKIN TEST; TUBERCULOSIS, INTRADERMAL 2006 [facility] PT A e ment Kinetic Training PT Assessment Kinetic Training 06451 2007 JAZZ CARTER DoD Training And Self-Care Skills Training And Self-Care Skills 28710 2007 JAZZ CARTER [facility] Exercises A isted Exercises For ROM Exercises Assisted Exercises For ROM 16673 2007 JAZZ CARTER [facility] Treatment Of Swallowing Dysfunction Treatment Of Swallowing Dysfunction 13098 2007 ODALIS RODRIGUEZ [facility] ENT Services Supervised Individual Speech/Hearing Therapy 2007 ODALIS RODRIGUEZ [facility] Treatment Of Swallowing Dysfunction Treatment Of Swallowing Dysfunction 38185 2007 ODALIS RODRIGUEZ [facility] Tracheostomy speaking valve 2007 ODALIS RODRIGUEZ [facility] Special ENT Services Evaluation of Speech/Hearing Problem 2007 ODALIS RODRIGUEZ [facility] Evaluation Of Swallowing And Oral Function Evaluation Of Swallowing And Oral Function 56855 2007 ODALIS RODRIGUEZ [facility] Tracheostomy speaking valve 2007 ODALIS RODRIGUEZ [facility] Health And Behav A e mt Each 15 Min Initial A e ment Health And Behav Assessmt Each 15 Min Initial Assessment 94095 2007 HECTOR DODGE [facility] Medical Nutrition Therapy Re-a e ment, Intervention Medical Nutrition Therapy Re-assessment, Intervention 98248 2007 CHIDI ROBERT [facility] Medical Nutrition Therapy Re-a e ment, Intervention Medical Nutrition Therapy Re-assessment, Intervention 16374 2007 CHIDI ROBERT [facility] Medical Nutrition Therapy Re-a e ment, Intervention Medical Nutrition Therapy Re-assessment, Intervention 26625 2007 CHIDI ROBERT [facility] Immunization Admin By Intranasal / Oral Route One Vaccine Immunization Admin By Intranasal / Oral Route One Vaccine 81990 2006 PASQUALE PLASCENCIA [facility] Influenza Virus Vaccine Live Intranasal 2006 PASQUALE PLASCENCIA [facility] Skin Test Anergy Tuberculin Intradermal Skin Test Anergy Tuberculin Intradermal 88945 2006 PASQUALE PLASCENCIA [facility] Psychiatric Therapy Individual Approximately 20-30 Minutes Psychiatric Therapy Individual Approximately 20-30 Minutes 16162 2006 ALESSIA TAN [facility] Psychiatric Evaluation Comprehensive Examination Psychiatric Evaluation Comprehensive Examination 50151 2006 ALESSIA TAN [facility] Hepatitis A And Hepatitis B (Intramuscular Use) Adult Dosage Hepatitis A And Hepatitis B (Intramuscular Use) Adult Dosage 84120 2006 ROQUE WHITNEY [facility] Immunization Administration One Vaccine Immunization Administration One Vaccine 39058 2006 ROQUE WHITNEY [facility] Threshold Audiogram (Pure Tone) Threshold Audiogram (Pure Tone) 23144 2006 KOMAL SYED [facility] Audiogram (Screening) Audiogram (Screening) 94635 2006 RITCHIE YOUNG [facility] Ophthalmological New Patient Start Comprehensive Care Ophthalmological New Patient Start Comprehensive Care 46568 2006 GUSTAVO VALLE Determination Of Refractive State Determination Of Refractive State 80045 2006 GUSTAVO VALLE Exercises A isted Exercises For ROM Exercises Assisted Exercises For ROM 75292 2006 BRET VILLA PT A e ment Kinetic Training Initial 30 Minutes PT Assessment Kinetic Training Initial 30 Minutes 96561 2006 BRET VILLA Physical Medicine - Group Physical Therapy Se ion Physical Medicine - Group Physical Therapy Session 76323 2006 BRET VILLA Psychiatric Therapy Environmental Intervention Psychiatric Therapy Environmental Intervention 32678 2006 LEMUEL SAMPSON Psychiatric Therapy Individual Approximately 20-30 Minutes Psychiatric Therapy Individual Approximately 20-30 Minutes 71437 2006 LEMUEL SAMPSON Psychologic Testing And Report Administered By Computer Psychologic Testing And Report Administered By Computer 20493 2006 LEMUEL SAMPSON Psychiatric Evaluation Comprehensive Examination Psychiatric Evaluation Comprehensive Examination 28291 2006 LEMUEL SAMPSON Skin Test Anergy Tuberculin Intradermal Skin Test Anergy Tuberculin Intradermal 55925 2009 KAREEN ARMENDARIZ Skin Test Anergy Tuberculin Intradermal Skin Test Anergy Tuberculin Intradermal 84849 2009 JAZZ DAVIS Electrocardiogram Electrocardiogram 30240 01/17 EMMA WHALEY [facility] Skin Test Anergy Tuberculin Intradermal Skin Test Anergy Tuberculin Intradermal 60333 2009 CIERA FOREMAN [facility] Coordinated care fee, risk adjusted maintenance 2009 IVANNA CORTÉS Case Management, each 15 minutes 2009 IVANNA CORTÉS Influenza Virus Vaccine Pandemic Formulation Influenza Virus Vaccine Pandemic Formulation 53254 2009 WILTON SILVA [facility] Immunization Admin By Intranasal / Oral Route One Vaccine Immunization Admin By Intranasal / Oral Route One Vaccine 82220 2009 WILTON SILVA [facility] Immunization Administration Each Additional Vaccine 2009 WILTON SILVA [facility] Typhoid Vaccine Vi Capsular Polysaccharide, For Intramus Use Typhoid Vaccine Vi Capsular Polysaccharide, For Intramus Use 81037 2009 WILTON SILVA [facility] Skin Test Anergy Tuberculin Intradermal Skin Test Anergy Tuberculin Intradermal 64433 2009 WILTON SILVA [facility] Coordinated care fee, risk adjusted maintenance, Level 4 2009 IVANNA CORTÉS S [facility] Case Management, each 15 minutes 2009 IVANNA CORTÉS S [facility] Occupational Therapy Evaluation Occupational Therapy Evaluation 85924 2008 PAL NIEVES 30 min [facility] Physical Medicine Physical Therapy Re-Evaluation Physical Medicine Physical Therapy Re-Evaluation 15017 2008 TAMIA CARMONA [facility] Influenza Virus Vaccine Live Intranasal 2008 HEIDE PRASAD Immunization Admin By Intranasal / Oral Route One Vaccine Immunization Admin By Intranasal / Oral Route One Vaccine 94892 2008 HEIDE PRASAD Coordinated care fee, risk adjusted maintenance, Level 4 2008 IVANNA CORTÉS [facility] Spectacles Services Fitting Monofocals (Not For Aphakia) Spectacles Services Fitting Monofocals (Not For Aphakia) 39008 2008 DOROTHY SUH ALElin [facility] Determination Of Refractive State Determination Of Refractive State 68186 2008 DOROTHY SUH ALElin [facility] Ophthalmological New Patient Start Comprehensive Care Ophthalmological New Patient Start Comprehensive Care 10153 2008 DOROTHY SUH ALElin [facility] -Supervised Specimen Handling / Transfer: Office To Lab -Supervised Specimen Handling / Transfer: Office To Lab 60227 2008 MEREDITH PAGE [facility] Coordinated care fee, risk adjusted maintenance, Level 4 2008 LYDIA CORTÉSA S [facility] Case Management, each 15 minutes 2008 IVANNA CORTÉS Audiogram (Screening) Audiogram (Screening) 96503 2008 SIDNEY DICKERSON [facility] Audiometry Group Testing Audiometry Group Testing 34440 2008 SIDNEY DICKERSON [facility] Coordinated care fee, risk adjusted maintenance, Level 4 2008 LONG, IVANNA S DoD Case Management, each 15 minutes 2008 LONG, IVANNA S DoD Physical Therapy: ___ Se ion Segments, 15 Minutes Each Physical Therapy: ___ Session Segments, 15 Minutes Each 46358 2008 ELVIA JEFFERS M x 20 mins DoD Physical Therapy: ___ Se ion Segments, 15 Minutes Each Physical Therapy: ___ Session Segments, 15 Minutes Each 50079 2008 ELVIA JEFFERS M x 30 mins DoD Phys Therapy Education Self Care Training - Per 15 Minutes Phys Therapy Education Self Care Training - Per 15 Minutes 21750 2008 HARVEY KONG [facility] Physical Therapy: ___ Se ion Segments, 15 Minutes Each Physical Therapy: ___ Session Segments, 15 Minutes Each 46006 2008 NORAH JIMENEZ Aquatic Exercises Aquatic Exercises 47570 03/15 NORAH JIMENEZ Phys Therapy Education Self Care Training - Per 15 Minutes Phys Therapy Education Self Care Training - Per 15 Minutes 04456 2008 HARVEY KONG [facility] Phys Therapy Education Self Care Training - Per 15 Minutes Phys Therapy Education Self Care Training - Per 15 Minutes 05756 2008 HARVEY KONG Phys Therapy Education Self Care Training - Per 15 Minutes Phys Therapy Education Self Care Training - Per 15 Minutes 35609 2008 HARVEY KONG [facility] Coordinated care fee, risk adjusted maintenance, [...] Self Care Training - Per 15 Minutes 83932 2008 HARVEY KONG Aquatic Exercises Aquatic Exercises 19455 02/28 NORAH JIMENEZ V [facility] Phys Therapy Education Self Care Training - Per 15 Minutes Phys Therapy Education Self Care Training - Per 15 Minutes 16361 2008 HARVEY KONG Aquatic Exercises Aquatic Exercises 58864 02/16 RENEE GREENWOOD [facility] Physical Medicine Physical Therapy Evaluation Physical Medicine Physical Therapy Evaluation 78823 2008 LATONYA MARADIAGA Coordinated care fee, risk adjusted maintenance, Level 4 2008 LONG, IVANNA S DoD Case Management, each 15 minutes 2008 LONG, IVANNA S DoD Coordinated care fee, risk adjusted maintenance, Level 4 2008 LONG, IVANNA S DoD Case Management, each 15 minutes 2008 LONG, IVANNA S DoD Occupational Therapy Re-Evaluation Occupational Therapy Re-Evaluation 28102 2008 TIAGOTEMEREDITH IZAGUIRRE PT A e ment Kinetic Training PT Assessment Kinetic Training 18726 2008 MOO PAULO A Martín Coordinated care fee, risk adjusted maintenance, Level 3 2008 LONGLYDIAA S DoD Case Management, each 15 minutes 2008 LONGLYDIAA S Martín PT A e ment Kinetic Training PT Assessment Kinetic Training 94848 2008 LILI MONTES PT A e ment Kinetic Training PT Assessment Kinetic Training 05763 2008 LILI MONTES PT A e ment Kinetic Training PT Assessment Kinetic Training 36509 2008 LILI MONTES Psychometric Neuropsych Testing Battery Admin By Physician Psychometric Neuropsych Testing Battery Admin By Physician 58761 2008 MONICA WATSON PT A e ment Kinetic Training PT Assessment Kinetic Training 75050 2008 PAULO CORTÉS PT A e ment Kinetic Training PT Assessment Kinetic Training 56049 2008 PAULO CORTÉS PT A e ment Kinetic Training PT Assessment Kinetic Training 79378 2008 PAULO CORTÉS Psychometric Neuropsych Testing Battery Admin By Physician Psychometric Neuropsych Testing Battery Admin By Physician 49907 2008 JATINDER GARCIA Psychometric Neuropsych Testing Battery Admin By Fountain Brush Assembler Psychometric Neuropsych Testing Battery Admin By Fountain Brush Assembler 30656 2008 JATINDER GARCIA Exercises A isted Exercises For ROM Exercises Assisted [place] 37625 2008 MEREDITH LOMELI Training And Self-Care Skills Training And Self-Care Skills 19848 2008 MEREDITH LOMELI Occupational Therapy Evaluation Occupational Therapy Evaluation 47305 2008 [email or web address] MEREDITH CRISOSTOMO [facility] Coordinated care fee, risk adjusted maintenance, Level 3 2008 LONG, IVANNA S [facility] Case Management, each 15 minutes 2008 LONG, IVANNA S [facility] Psychologic Testing And Report Administered By Computer Psychologic Testing And Report Administered By Computer 35935 2008 JATINDER GARCIA [facility] Psychometric Neuropsych Testing Battery Admin By Fountain Brush Assembler Psychometric Neuropsych Testing Battery Admin By Fountain Brush Assembler 40502 2008 JOSEJATINDER BURT [facility] Psychiatric Evaluation Comprehensive Examination Psychiatric Evaluation Comprehensive Examination 37262 2008 MONICA WATSON [facility] Screening Test Of Visual Acuity, Quantitative, Bilateral Screening Test Of Visual Acuity, Quantitative, Bilateral 33321 2008 SIERRA DE LA ROSA [facility] Coordinated care fee, risk adjusted maintenance, Level 3 2007 LONG, IVANNA S [facility] Case Management, each 15 minutes 2007 LONG, IVANNA S [facility] Audiometry Group Testing Audiometry Group Testing 25745 2007 PAL MCLEOD [facility] Immunization Admin By Intranasal / Oral Route One Vaccine Immunization Admin By Intranasal / Oral Route One Vaccine 51108 2007 KAREEN ARMENDARIZ [facility] Influenza Virus Vaccine Live Intranasal 2007 [facility] Skin Test Anergy Tuberculin Intradermal Skin Test Anergy Tuberculin Intradermal 29724 2007 KAREEN ARMENDARIZ [facility] Venipuncture Venipuncture [address]Supervised Specimen Handling / Transfer: Office To Lab -Supervised Specimen Handling / Transfer: Office To Lab [address]Supervised Specimen Handling / Transfer: Office To Lab -Supervised Specimen Handling / Transfer: Office To Lab 20585 2007 TAMIA BALTAZAR [facility] Case Management, each 15 minutes 2007 LONG, IVANNA S [facility] Case Management, each 15 minutes 2007 LONG, IVANNA S [facility] Case Management, each 15 minutes 2007 LONG, IVANNA S [facility] Coordinated care fee, risk adjusted maintenance 2007 LONG, IVANNA S [facility] Case Management, each 15 minutes 2007 LONG, [...] Of Swallowing Dysfunction Treatment Of Swallowing Dysfunction 74003 2007 ODALIS RODRIGUEZ [facility] Physical Therapy Neuromuscular Re-education Physical Therapy Neuromuscular Re-education 12854 2007 JAZZ CARTER [facility] Treatment Of Swallowing Dysfunction Treatment Of Swallowing Dysfunction 97114 2007 ODALIS RODRIGUEZ [facility] Training And Self-Care Skills Training And Self-Care Skills 48586 2007 JAZZ CARTER [facility] Medical Nutrition Therapy Re-a e ment, Intervention Medical Nutrition Therapy Re-assessment, Intervention 23486 2007 YOLANDA CEDEÑO [facility] Training And Self-Care Skills Training And Self-Care Skills 03587 2007 JAZZ CARTER [facility] Physical Therapy Neuromuscular Re-education Physical Therapy Neuromuscular Re-education 65171 2007 JAZZ CARTER [facility] Social History Combined list of available smoking, tobacco, and other social history 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 Social History Type Response Date Comment [facility] e Tobacco smoking status NHIS VA-TOBACCO FORMER USER 03/18/2024 [facility] History of tobacco use NM-TOBACCO QUIT < 1 YEAR 03/18/2024 [facility] History of tobacco use VA-TOBACCO USER E VERY DAY 03/18/2023 [facility] of [facility] 11/06/2022 [facility] History of tobacco use ORYX ADMIT TOBACC O USE CIGS GR 5D 11/06/2022 [facility] History of tobacco use LIFETIME NON-USER OF TOBACCO 01/17/2011 [facility] History of tobacco use LIFETIME NON-USER OF TOBACCO 03/04/2008 [facility] This section is an empty social history section. [facility] Plan of Care List of future care activities from 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 Additional future care activities may be listed in the Assessment and Plan section. Date/Time Care Activity Care Activity Detail Facili ty 03/18/2025 AMBULATORY - MEDICINE AMBULATORY - MEDICI [facility]
--- OUTSIDE RECORDS SUMMARY | 2025-01-29 14:17 | XMS_ITS | Continuity of Care Document ---
Author Organization [facility] Address [address] [place] [address] Phone Care Team Providers Care Plate Painter Name Role Phone Amy Dc Unavailable Unavailable Allergies, Adverse Reactions, Alerts Substance Reaction Status Criticality No Known Allergies Active No Inform ation Medications Medication Instructions Dosage Effective Dates (start - stop) Status Comments amoxicillin 875 mg-potassium clavulanate 125 mg tablet take 1 tablet by oral route every 12 hours 1.00 tablet - Active Procedures Procedure Date OFFICE/OUTPATIENT VISIT, [facility] Ketorolac tromethamine inj Advance Directives Directive Yes / No Effective Date File Name No Information Encounters Encounter Description Practice Location Reason(s) For Visit Diagnoses Date Provider Providers Copied on Encounter OFFICE/OUTPAT IENT VISIT, [facility], [address] [place] [address], [facility], tel:[phone] [place] TOOTH PAIN (chief complaint) Chronic dental infection Dao Reyes. [address] [place] [address], [facility], . 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 STATES HE USED MANY OF THOSE LAST [...] to the area. 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 STATES HE USED MANY OF THOSE LAST [...] Mental Status Date Cognitive Assessment Orientation - [place] ed to time, place, person, situation. Patient Care Teams Name Effective Dates (start - stop) Status Members No Information
== END 2025-01-28 14:37 | disposition home or self-care (01) ==
PROVIDERS: Emergency Provider Emergency Medicine; PCP Physician Assistant
DX: S23.3XXA Sprain of ligaments of thoracic spine, initial encounter (principal); M54.50 Low back pain, unspecified; Z86.73 Personal history of transient ischemic attack (TIA), and cerebral infarction without residual deficits; X50.0XXA Overexertion from strenuous movement or load, initial encounter
CPT/HCPCS: 71046; 71110; 72070; 72100; 96372; 99284; J1885

== ENCOUNTER 2025-02-10 12:15 | Emergency (ER) | payer OTHER, SELFPAY ==
[2025-02-10 12:17] VITALS: BP 161/95; PULSE 88; RESP 16; TEMP 36.4; O2SAT 97
--- OUTSIDE RECORDS SUMMARY | 2025-02-10 12:18 | XMS_ITS | Patient Health Record ---
Author Organization [facility] Address [address] [place] [address] Care Team Providers Care Senior Executive Assistant Name Role Phone Goran Mckinney Primary Care [...]
--- NOTE | 2025-02-10 12:20 | ED.DENTAL ---
HPI - Dental/Oral General Chief complaint: Dental/Oral Stated complaint: Dental pain Time Seen by Provider: 02/10/25 12:18 Source: patient Mode of arrival: ambulatory Limitations: no limitations History of Present Illness MD Complaint: tooth pain Teeth map:  1. surrounding gum inflammation and swelling Onset (ago): day(s) Duration: constant Severity: mild Exacerbating factors: chewing, cold and drinking fluids Context: history of dental caries Related Data Allergies Allergy/AdvReac Type Severity Reaction Status Date / Time No Known Allergies Allergy Verified 02/10/25 12:19 Review of Systems Review of Systems: All systems reviewed & are unremarkable except as noted in HPI and below PMFSH Past Medical History Medical History AVM (arteriovenous malformation) brain Seizures AVM (arteriovenous malformation) History of stroke Exam Const: General: healthy appearing and no acute distress Nutritional Appearance: well nourished Orientation/consciousness: patient oriented x3 Limitations: no limitations HENMT: Head: normal to inspection Eyes: Conjunctivae: conjunctivae normal Neck: Neck: normal visual inspection, no lymphadenopathy and no meningeal signs Chest: Chest palpation & inspection: normal inspection of the chest Resp: Effort & Inspection: normal respiratory effort Auscultation: clear to auscultation bilaterally Cardio: Rate: regular rate Rhythm: regular rhythm GI: GI Palp: Yes Soft to palpation Auscultation: normal bowel sounds Skin: General skin exam: normal color Course Course Emergency Course: patient has taken ibuprofen [id number] and pain is well controlled, will start antibiotic with Augmentin here in the ER. Vital Signs Vital signs: Vital Signs Temperature 36.4 C 02/10/25 12:17 Pulse Rate 88 02/10/25 12:17 Respiratory Rate 16 02/10/25 12:17 Blood Pressure 161/95 H 02/10/25 12:17 Pulse Oximetry 97 02/10/25 12:17 Oxygen Delivery Room Air 02/10/25 12:17 Temperature 36.4 C 02/10/25 12:17 Pulse Rate 88 02/10/25 12:17 Respiratory Rate 16 02/10/25 12:17 Blood Pressure 161/95 H 02/10/25 12:17 Pulse Oximetry 97 02/10/25 12:17 Oxygen Delivery Room Air 02/10/25 12:17 Critical Care Time Critical Care Time Critical Care Time: No Discharge Plan Discharge Clinical Impression: Dental abscess, Toothache Patient Disposition: Home Condition: Stable Instructions: Antibiotic Form, Dental Abscess (ED), Toothache (ED) Additional Instructions: Advised patient to take medication as prescribed, and follow with dentist as scheduled. Patient Language: Serbian Prescriptions: New amoxicillin-pot clavulanate [Augmentin] 500-125 mg tablet 1 tablet PO TID Qty: 30 0RF No Action amoxicillin-pot clavulanate 875-125 mg tablet 1 tablet PO BID 10 Days Qty: 20 0RF clindamycin HCl 300 mg capsule 300 mg PO TID 10 Days Qty: 30 0RF ibuprofen 800 mg tablet 800 mg PO TID PRN (Reason: pain) Qty: 30 0RF orphenadrine citrate 100 mg tablet extended release 100 mg PO BID PRN (Reason: pain) Qty: 20 0RF methylprednisolone [Medrol (Yariel)] 4 mg tablets,dose pack See Rx Instructions .ROUTE .COMPLEX Qty: 21 0RF Rx Instructions: orally per package directions clindamycin HCl 300 mg capsule 300 mg PO Q8H Qty: 20 0RF Follow-up/Referrals: Homar,MARYJANE Iraheta [Primary Care Provider] - Stand Alone Forms: Work/School Release IP
--- OUTSIDE RECORDS SUMMARY | 2025-02-10 12:22 | XMS_ITS | Continuity of Care Document ---
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 It does not include entries that were removed or entered in error. Problem Status Onset Date Problem Type Date of Resolution Comments Source Adjustment disorder with depressed mood (SNOMED CT 97277019) Active Condition [facility] Cerebral aneurysm, nonruptured (ICD-9-CM 437.3) Active Condition [facility] Congenital arteriovenous malformation Active Condition Jan 17, 2011 Entered By: CHIOMA QUAN Comment: 12/2007 surgery in [facility] Diplopia * (ICD-9-CM 368.2) Active Condition [facility] Myopia Active Condition [facility] Pain of joint of knee (SNOMED CT 2475389318) Active Condition [facility] Pneumonia, organism unspecified Active Condition Jan 17, 2011 Entered By: CHIOMA QUAN Comment: August 2010, received pneumovax vaccineMar 08, 2011 Entered By: CHIOMA QUAN Comment: 02/20/11 rul and rml [facility] Sleep disturbances Active Condition [facility] Tinnitus Active Condition [facility] Vitamin D Deficiency (SCT 49662986) Active Condition [facility] Chest Pain * (ICD-9-CM 786.50) Inactive Condition 03/18/2023 [facility] Cyst, ganglion Inactive Condition 03/18/2023 Jan 17, 2011 Entered By: CHIOMA QUAN Comment: right wrist [facility] Encounters for unspecified Administrative Purpose (ICD-9-CM V68.9) Inactive Condition 03/18/2023 [facility] NEUTROPENIA, unspecified Inactive Condition 03/18/2023 [facility] Vitamin D Deficiency Inactive Condition 03/18/2023 [facility] visit for: services physical separation Active Condition [facility] visit for: refer patient without exam or treatment Active Condition [facility] FLAT FOOT Inactive Condition [facility] METATARSALGIA Active Condition [facility] CHEST PAIN Active Condition [facility] limb pain Active Condition [facility] PHARYNGITIS Inactive Condition [facility] visit for: examination of subpopulation Active Condition [...] DoD visit for: administrative purpose Inactive Condition [facility] Patient Counseling: Active Condition Do D visit for: ears / hearing exam Active Condition [facility] ASSESSMENT OF PATIENT CONDITION WORK-RELATED Active Condition [facility] SINUSITIS ACUTE Active Condition [facility] PHARYNGITIS ACUTE Inactive Condition [facility] INGROWING NAIL Active Condition [facility] visit for: postsurgical exam Active Condition DoD [...] Condition DoD difficulty swallowing (dysphagia) Active Condition [facility] Patient Counseling: Inquiry & Counseling Active Condition [facility] INTRACEREBRAL HEMORRHAGE Active Condition [facility] BACTEREMIA Active Condition [facility] 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 [facility] Dietary Counseling Pertaining To Specific Condition Inactive Condition [facility] visit for: screening exam pulmonary tuberculosis Active [...] medical exam w/o abnormal findings Active Diagnosis [facility] Diagnosis: ICD-10-CM Q27.30 Arteriovenous malformation, site unspecified Active Diagnosis [facility] Diagnosis: ICD-10-CM G40.89 Other seizures Active Diagnosis [facility] Allergies, Adverse Reactions, Alerts Combined list of allergies 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 It does not include entries that were removed or entered in error. Substance Category Reaction Severity Reaction type Status Date Reported Comments Source ADHESIVE TAPE Propensity to adverse reaction (finding) Eruption active 1 . [facility] OTHER Drug allergy (disorder) Unknown active 8 [facility] Immunizations Combined list of available immunizations from the Department of Defense and [facility] facilities. 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 Status Comments Source PNEUMOCOCCAL POLYSACCHARID E PPV23 2022 KARIBRONSONVIKKI H R RIGHT DELTO ID [id number] 33 complet ed [facility] TDAP 2022 BRIEN PIERCE H R LEFT DELTO ID [id number] 115 complet ed [facility] INFLUENZA, UNSPECIFIED FORMULATION 2011 88 complet ed [facility] INFLUENZA, UNSPECIFIED FORMULATION 2010 88 complet ed [facility] tuberculin skin test; purified protein derivative solution, intradermal 0 2009 KAREEN ARMENDARIZ [id number] [place] [employer] ([facility]) complet ed tuberculi n skin test; purified protein derivativ e solution, intraderm al DoD tuberculin skin test; purified protein derivative solution, intradermal 1 2009 JAZZ DAVIS [id number] 96 [place] [employer] ([facility]) complet ed tuberculi n skin test; purified protein derivativ e solution, intraderm al DoD tuberculin skin test; purified protein derivative solution, intradermal 1 2009 CIERA FOREMAN [id number] 96 [place] [employer] ([facility]) complet ed tuberculi n skin test; purified protein derivativ e solution, intraderm al DoD tuberculin skin test; purified protein derivative solution, intradermal 1 2009 WILTON SILVA [id number] 96 [place] [employer] ([facility]) complet ed tuberculi n skin test; purified protein derivativ e solution, intraderm al DoD typhoid Vi capsular polysaccharid e vaccine 1 2009 WILTON SILVA [id number] [place] [employer] ([facility]) complet ed typhoid Vi capsular polysacch aride vaccine DoD Novel Influenza-H1N 1-09, live virus for nasal administratio n 1 2009 WILTON SILVA [id number] [employer] (MED) complet ed Novel Influenza -Q3G5-42, live virus for nasal administr ation DoD influenza virus vaccine, live, attenuated, for intranasal use 0 2008 UNK 111 Unknown (UNK) comple t ed influenza virus vaccine, live, attenuate d, for intranasa l use DoD influenza virus vaccine, live, attenuated, for intranasal use 1 2008 SERA PRASAD Radha [id number] 111 [employer]. (MED) complet ed influenza virus vaccine, live, attenuate d, for intranasa l use DoD tuberculin skin test; purified protein derivative solution, intradermal 1 2007 KAREEN ARMENDARIZ [id number] 96 [place] (PD) complet ed tuberculi n skin test; purified protein derivativ e solution, intraderm al DoD influenza virus vaccine, live, attenuated, for intranasal use 1 2007 KAREEN ARMENDARIZ [id number] 111 [employer] [facility]. (MED) complet ed influenza virus vaccine, live, attenuate d, for intranasa l use DoD influenza virus vaccine, unspecified formulation 0 2006 UNK 88 Unknown (UNK) comple t ed influenza virus vaccine, unspecifi ed formulati on DoD tuberculin skin test; purified protein derivative solution, intradermal 1 2006 DAVISJAZZ CARNES [id number] 96 [place] (PD) complet ed tuberculi n skin test; purified protein derivativ e solution, intraderm al DoD influenza virus vaccine, live, attenuated, for intranasal use 1 2006 PASQUALE SINHA Neetu [id number] 111 [employer]. (MED) complet ed influenza virus vaccine, live, attenuate d, for intranasa l use DoD hepatitis B vaccine, adult dosage 3 2006 UNK 43 Unknown (UNK) comple t ed hepatitis B vaccine, adult dosage DoD hepatitis A and hepatitis B vaccine 3 2006 ROQUE WHITNEY [id number] [employer] [facility] (SK[facility]) complet ed hepatitis A and [...] 18, 2024 10:55 AM Reporting Lab: [facility] [address] [facility] [address] Performing Lab: [facility] [address] [facility] [address] [facility] LIPID PANEL (STL) TRIGLYCERID E [MASS/VOLUM E] IN SERUM OR PLASMA 247 mg/dL 0 - 150 03/18 H Specimen Type: PLASMA Comment: No hemolysis noted. Ordering Provider: Nicanor KENNEDY Report Released Date/Time: Mar 18, 2024 10:55 AM Reporting Lab: [address] [address] Performing Lab: [address] [address] [facility] LIPID PANEL (STL) CHOLESTEROL IN LDL [MASS/VOLUM E] IN SERUM OR PLASMA BY CALCULATION 106 mg/dL 03/18 Specimen Type: PLASMA Comment: No hemolysis noted. Ordering Provider: Nicanor KENNEDY Report Released Date/Time: Mar 18, 2024 10:55 AM Reporting Lab: [address] [address] Performing Lab: [address] [address] [facility] LIPID PANEL (STL) CHOLESTEROL IN HDL [MASS/VOLUM E] IN SERUM OR PLASMA 54 mg/dL 40 03/18 Specimen Type: PLASMA Comment: No hemolysis noted. Ordering Provider: Nicanor KENNEDY Report Released Date/Time: Mar 18, 2024 10:55 AM Reporting Lab: [address] [address] Performing Lab: [address] [address] [facility] COMPREHENS GUILLERMO METABOLIC PANEL CREATININE [MASS/VOLUM E] IN SERUM OR PLASMA 1.14 mg/dL 0.7 - 1.3 03/18 Specimen Type: PLASMA Comment: No hemolysis noted. Ordering Provider: Nicanor KENNEDY Report Released Date/Time: Mar 18, 2024 10:55 AM Reporting Lab: [address] [address] Performing Lab: [address] [phone] [facility] COMPREHENS GUILLERMO METABOLIC PANEL UREA NITROGEN [MASS/VOLUM E] IN SERUM OR PLASMA 16.6 mg/dL 9.0 - 25.0 03/18 Specimen Type: PLASMA Comment: No hemolysis noted. Ordering Provider: Nicanor KENNEDY Report Released Date/Time: Mar 18, 2024 10:55 AM Reporting Lab: [facility] [address] [place] [phone] Performing Lab: [facility] [address] [place] [phone] [facility] COMPREHENS GUILLERMO METABOLIC PANEL GLUCOSE [MASS/VOLUM E] IN SERUM OR PLASMA 108 mg/dL 72 - 99 03/18 H Specimen Type: PLASMA Comment: No hemolysis noted. Ordering Provider: Nicanor KENNEDY Report Released Date/Time: Mar 18, 2024 10:55 AM Reporting Lab: [address] [address] Performing Lab: [address] [address] [facility] COMPREHENS GUILLERMO METABOLIC PANEL SODIUM [MOLES/VOLU ME] IN SERUM OR PLASMA 139 meq/L 136 - 145 03/18 Specimen Type: PLASMA Comment: No hemolysis noted. Ordering Provider: Nicanor KENNEDY Report Released Date/Time: Mar 18, 2024 10:55 AM Reporting Lab: [address] [address] Performing Lab: [facility] [address] [place] [phone] [facility] COMPREHENS GUILLERMO METABOLIC PANEL POTASSIUM [MOLES/VOLU ME] IN SERUM OR PLASMA 4.9 meq/L 3.5 - 5 03/18 Specimen Type: PLASMA Comment: No hemolysis noted. Ordering Provider: Nicanor KENNEDY Report Released Date/Time: Mar 18, 2024 10:55 AM Reporting Lab: [facility] [address] [place] [phone] Performing Lab: [facility] [address] [place] [phone] [facility] COMPREHENS GUILLERMO METABOLIC PANEL CHLORIDE [MOLES/VOLU ME] IN SERUM OR PLASMA 106 meq/L 98 - 107 03/18 Specimen Type: PLASMA Comment: No hemolysis noted. Ordering Provider: Nicanor KENNEDY Report Released Date/Time: Mar 18, 2024 10:55 AM Reporting Lab: [address] [address] Performing Lab: [facility] [address] [place] [phone] [facility] COMPREHENS GUILLERMO METABOLIC PANEL CARBON DIOXIDE, TOTAL [MOLES/VOLU ME] IN SERUM OR PLASMA 25 meq/L 22 - 31 03/18 Specimen Type: PLASMA Comment: No hemolysis noted. Ordering Provider: Nicanor KENNEDY Report Released Date/Time: Mar 18, 2024 10:55 AM Reporting Lab: [address] [address] Performing Lab: [address] [address] [facility] COMPREHENS GUILLERMO METABOLIC PANEL CALCIUM [MASS/VOLUM E] IN SERUM OR PLASMA 9.3 mg/dL 8.4 - 10.4 03/18 Specimen Type: PLASMA Comment: No hemolysis noted. Ordering Provider: Nicanor KENNEDY Report Released Date/Time: Mar 18, 2024 10:55 AM Reporting Lab: [address] [address] Performing Lab: [address] [address] [facility] COMPREHENS GUILLERMO METABOLIC PANEL PROTEIN [MASS/VOLUM E] IN SERUM OR PLASMA 6.9 g/dL 6 - 8.6 03/18 Specimen Type: PLASMA Comment: No hemolysis noted. Ordering Provider: Nicanor KENNEDY Report Released Date/Time: Mar 18, 2024 10:55 AM Reporting Lab: [address] [address] Performing Lab: [address] [address] [facility] COMPREHENS GUILLERMO METABOLIC PANEL ALBUMIN [MASS/VOLUM E] IN SERUM OR PLASMA 4.3 g/dL 3.4 - 5 03/18 Specimen Type: PLASMA Comment: No hemolysis noted. Ordering Provider: Nicanor KENNEDY Report Released Date/Time: Mar 18, 2024 10:55 AM Reporting Lab: [facility] [address] [place] [address] Performing Lab: [place] [phone] [facility] COMPREHENS GUILLERMO METABOLIC PANEL BILIRUBIN.T OTAL [MASS/VOLUM E] IN SERUM OR PLASMA 0.5 mg/dL 0.2 - 1.2 03/18 Specimen Type: PLASMA Comment: No hemolysis noted. Ordering Provider: Nicanor KENNEDY Report Released Date/Time: Mar 18, 2024 10:55 AM Reporting Lab: [place] [address] Performing Lab: [address] [phone] [place] [address] [facility] COMPREHENS GUILLERMO METABOLIC PANEL ALKALINE PHOSPHATASE [ENZYMATIC ACTIVITY/VO LUME] IN SERUM OR PLASMA 73 U/L 40 - 150 03/18 Specimen Type: PLASMA Comment: No hemolysis noted. Ordering Provider: Nicanor KENNEDY Report Released Date/Time: Mar 18, 2024 10:55 AM Reporting Lab: [place] [phone] Performing Lab: [address] [phone] [place] [address] [facility] COMPREHENS GUILLERMO METABOLIC PANEL ASPARTATE AMINOTRANSF ERASE [ENZYMATIC ACTIVITY/VO LUME] IN SERUM OR PLASMA 28 U/L 5 - 34 03/18 Specimen Type: PLASMA Comment: No hemolysis noted. Ordering Provider: Nicanor KENNEDY Report Released Date/Time: Mar 18, 2024 10:55 AM Reporting Lab: [facility] [address] [place], [place] [phone] Performing Lab: [address] [address] [facility] COMPREHENS GUILLERMO METABOLIC PANEL ALANINE AMINOTRANSF ERASE [ENZYMATIC ACTIVITY/VO LUME] IN SERUM OR PLASMA 24 U/L 8 - 40 03/18 Specimen Type: PLASMA Comment: No hemolysis noted. Ordering Provider: Nicanor KENNEDY Report Released Date/Time: Mar 18, 2024 10:55 AM Reporting Lab: [address] [address] Performing Lab: [address] [phone] [place] [address] [facility] COMPREHENS GUILLERMO METABOLIC PANEL GLOMERULAR FILTRATION RATE/1.73 SQ M.PREDICTED [VOLUME RATE/AREA] IN SERUM, PLASMA OR BLOOD BY CREATININE- BASED FORMULA (CKD-EPI 2020) 85.5 60 03/18 Specimen Type: PLASMA Comment: No hemolysis noted. Ordering Provider: Nicanor KENNEDY Report Released Date/Time: Mar 18, 2024 10:55 AM Reporting Lab: [address] [address] Performing Lab: [address] [phone] [place] [address] [facility] HGA1C HEMOGLOBIN A1C/HEMOGLO BIN.TOTAL IN BLOOD 5.5 4.0 - 6.0 03/18 Specimen Type: BLOOD No comment entered. Ordering Provider: Nicanor KENNEDY Report Released Date/Time: Mar 18, 2024 10:55 AM Reporting Lab: [address] [address] Performing Lab: [address] [phone] [place] [address] [facility] CBC LEUKOCYTES [#/VOLUME] IN BLOOD BY AUTOMATED COUNT 4.7 10*3/u L 3.6 - 11.2 03/18 Specimen Type: BLOOD No comment entered. Ordering Provider: Nicanor KENNEDY Report Released Date/Time: Mar 18, 2024 10:55 AM Reporting Lab: [address] [address] Performing Lab: [address] [phone] [place] [address] [facility] CBC ERYTHROCYTE S [#/VOLUME] IN BLOOD BY AUTOMATED COUNT 4.62 10*6/u L 4.10 - 5.70 03/18 Specimen Type: BLOOD No comment entered. Ordering Provider: Nicanor KENNEDY Report Released Date/Time: Mar 18, 2024 10:55 AM Reporting Lab: [place] [phone] Performing Lab: [address] [facility] CBC HEMOGLOBIN [MASS/VOLUM E] IN BLOOD 14.3 g/dL 13.1 - 16.8 03/18 Specimen Type: BLOOD No comment entered. Ordering Provider: Nicanor KENNEDY Report Released Date/Time: Mar 18, 2024 10:55 AM Reporting Lab: [place] [address] Performing Lab: [address] [facility] CBC HEMATOCRIT [VOLUME FRACTION] OF BLOOD 42.9 38.2 - 48.4 03/18 Specimen Type: BLOOD No comment entered. Ordering Provider: Nicanor KENNEDY Report Released Date/Time: Mar 18, 2024 10:55 AM Reporting Lab: [place] [address] Performing Lab: [address] [phone] [facility] CBC MCV [ENTITIC VOLUME] BY AUTOMATED COUNT 92.9 fL 80.0 - 100.0 03/18 Specimen Type: BLOOD No comment entered. Ordering Provider: Nicanor KENNEDY Report Released Date/Time: Mar 18, 2024 10:55 AM Reporting Lab: [place] [address] Performing Lab: [address] [phone] [place] [address] [facility] CBC MCH [ENTITIC MASS] BY AUTOMATED COUNT 31.0 pg 27.0 - 34.0 03/18 Specimen Type: BLOOD No comment entered. Ordering Provider: Nicanor KENNEDY Report Released Date/Time: Mar 18, 2024 10:55 AM Reporting Lab: [place] [address] Performing Lab: [address] [phone] [facility] CBC MCHC [MASS/VOLUM E] BY AUTOMATED COUNT 33.3 g/dL 33.0 - 36.0 03/18 Specimen Type: BLOOD No comment entered. Ordering Provider: Nicanor KENNEDY Report Released Date/Time: Mar 18, 2024 10:55 AM Reporting Lab: [place] [address] Performing Lab: [address] [facility] CBC PLATELETS [#/VOLUME] IN BLOOD BY AUTOMATED COUNT 237 10*3/u L 150 - 400 03/18 Specimen Type: BLOOD No comment entered. Ordering Provider: Nicanor KENNEDY Report Released Date/Time: Mar 18, 2024 10:55 AM Reporting Lab: [place] [address] Performing Lab: [address] [phone] [facility] CBC PLATELET MEAN VOLUME [ENTITIC VOLUME] IN BLOOD BY AUTOMATED COUNT 10.6 fL 7.5 - 11.2 03/18 Specimen Type: BLOOD No comment entered. Ordering Provider: Nicanor KENNEDY Report Released Date/Time: Mar 18, 2024 10:55 AM Reporting Lab: [place] [address] Performing Lab: [address] [phone] [facility] CBC ERYTHROCYTE DISTRIBUTIO N WIDTH [RATIO] BY AUTOMATED COUNT 12.2 11.8 - 15.1 03/18 Specimen Type: BLOOD No comment entered. Ordering Provider: Nicanor KENNEDY Report Released Date/Time: Mar 18, 2024 10:55 AM Reporting Lab: [facility] [address] [facility] [address] Performing Lab: [facility] [address] [place] [phone] [facility] CBC LYMPHOCYTES /100 LEUKOCYTES IN BLOOD BY AUTOMATED COUNT 30 03/18 Specimen Type: BLOOD No comment entered. Ordering Provider: Nicanor KENNEDY Report Released Date/Time: Mar 18, 2024 10:55 AM Reporting Lab: [facility] [address] [place] [phone] Performing Lab: [facility] [address] [place] [phone] [facility] CBC MONOCYTES/1 00 LEUKOCYTES IN BLOOD BY AUTOMATED COUNT 8 03/18 Specimen Type: BLOOD No comment entered. Ordering Provider: Nicanor KENNEDY Report Released Date/Time: Mar 18, 2024 10:55 AM Reporting Lab: [facility] [address] [facility] [address] Performing Lab: [facility] [address] [place] [phone] [facility] CBC NEUTROPHILS /100 LEUKOCYTES IN BLOOD BY AUTOMATED COUNT 58 03/18 Specimen Type: BLOOD No comment entered. Ordering Provider: Nicanor KENNEDY Report Released Date/Time: Mar 18, 2024 10:55 AM Reporting Lab: [facility] [address] [facility] [address] Performing Lab: [facility] [address] [place] [phone] [facility] CBC EOSINOPHILS /100 LEUKOCYTES IN BLOOD BY AUTOMATED COUNT 3 03/18 Specimen Type: BLOOD No comment entered. Ordering Provider: Nicanor KENNEDY Report Released Date/Time: Mar 18, 2024 10:55 AM Reporting Lab: [facility] [address] [facility] [address] Performing Lab: [address] [address] [facility] CBC BASOPHILS/1 00 LEUKOCYTES IN BLOOD BY AUTOMATED COUNT 1 03/18 Specimen Type: BLOOD No comment entered. Ordering Provider: Nicanor KENNEDY Report Released Date/Time: Mar 18, 2024 10:55 AM Reporting Lab: [address] [address] Performing Lab: [address] [address] [facility] CBC LYMPHOCYTES [#/VOLUME] IN BLOOD BY AUTOMATED COUNT 1.42 10*3/u L 0.77 - 4.50 03/18 Specimen Type: BLOOD No comment entered. Ordering Provider: Nicanor KENNEDY Report Released Date/Time: Mar 18, 2024 10:55 AM Reporting Lab: [address] [address] Performing Lab: [address] [address] [facility] CBC MONOCYTES [#/VOLUME] IN BLOOD BY AUTOMATED COUNT 0.38 10*3/u L 0.19 - 0.80 03/18 Specimen Type: BLOOD No comment entered. Ordering Provider: Nicanor KENNEDY Report Released Date/Time: Mar 18, 2024 10:55 AM Reporting Lab: [address] [address] Performing Lab: [address] [address] [facility] CBC NEUTROPHILS [#/VOLUME] IN BLOOD BY AUTOMATED COUNT 2.72 10*3/u L 2.10 - 8.00 03/18 Specimen Type: BLOOD No comment entered. Ordering Provider: Nicanor KENNEDY Report Released Date/Time: Mar 18, 2024 10:55 AM Reporting Lab: [address] [address] Performing Lab: [address] [phone] [facility] CBC EOSINOPHILS [#/VOLUME] IN BLOOD BY AUTOMATED COUNT 0.13 10*3/u L 0.00 - 0.60 03/18 Specimen Type: BLOOD No comment entered. Ordering Provider: Nicanor KENNEDY Report Released Date/Time: Mar 18, 2024 10:55 AM Reporting Lab: [place] [address] Performing Lab: [address] [facility] CBC BASOPHILS [#/VOLUME] IN BLOOD BY AUTOMATED COUNT 0.06 10*3/u L 0.00 - 0.20 03/18 Specimen Type: BLOOD No comment entered. Ordering Provider: Nicanor KENNEDY Report Released Date/Time: Mar 18, 2024 10:55 AM Reporting Lab: [place] [address] Performing Lab: [address] [facility] TSH W/ REFLEX FT4 (STL) THYROTROPIN [UNITS/VOLU ME] IN SERUM OR PLASMA 0.605 u[IU]/ mL 0.47 - 5 03/18 Specimen Type: PLASMA No comment entered. Ordering Provider: Nicanor KENNEDY Report Released Date/Time: Mar 18, 2024 10:55 AM Reporting Lab: [place] [address] Performing Lab: [address] [facility] VITAMIN D, 25-HYDROXY 25-HYDROXYV ITAMIN D3 [MASS/VOLUM E] IN SERUM OR PLASMA 35.9 ng/mL 30 - 96 03/18 Specimen Type: SERUM No comment entered. Ordering Provider: Nicanor KENNEDY Report Released Date/Time: Mar 18, 2024 10:55 AM Reporting [id number]|2025-02-10 12:20:00|2025-02-10 12:20:00|ED_ITS|[place]|Health Information Management|[id number]|"HPI - Dental/Oral General Chief complaint: Dental/Oral Stated complaint: Dental pain Time Seen by Provider: 02/10/25 12:18 Source: patient Mode of arrival: ambulatory Limitations: no limitations History of Present Illness MD Complaint: tooth pain Teeth map: 2 1. surrounding gum inflammation and swelling Onset (ago): day(s) Duration: constant Severity: mild Exacerbating factors: chewing, cold and drinking fluids Context: history of dental caries Related Data Allergies Allergy/AdvReac Type Severity Reaction Status Date / Time No Known Allergies Allergy Verified 02/10/25 12:19 Review of Systems 2 Review of Systems: All systems reviewed & are unremarkable except as noted in HPI and below PMFSH Past Medical History Medical History AVM (arteriovenous malformation) brain Seizures AVM (arteriovenous malformation) History of stroke Exam 2 Const: General: healthy appearing and no acute distress Nutritional Appearance: well nourished Orientation/consciousness: patient oriented x3 Limitations: no limitations HENMT: Head: normal to inspection Eyes: Conjunctivae: conjunctivae normal Neck: Neck: normal visual inspection, no lymphadenopathy and no meningeal signs Chest: Chest palpation & inspection: normal inspection of the chest Resp: Effort & Inspection: normal respiratory effort Auscultation: clear to auscultation bilaterally Cardio: Rate: regular rate Rhythm: regular rhythm GI: GI Palp: Yes Soft to palpation Auscultation: normal bowel sounds Skin: General skin exam: normal color Course Course Emergency Course: patient has taken ibuprofen [id number] and pain is well controlled, will start antibiotic with Augmentin here in the ER. Vital Signs Vital signs: Vital Signs Temperature 36.4 C 02/10/25 12:17 Pulse Rate 88 02/10/25 12:17 Respiratory Rate 16 02/10/25 12:17 Blood Pressure 161/95 H 02/10/25 12:17 Pulse Oximetry 97 02/10/25 12:17 Oxygen Delivery Room Air 02/10/25 12:17 Temperature 36.4 C 02/10/25 12:17 Pulse Rate 88 02/10/25 12:17 Respiratory Rate 16 02/10/25 12:17 Blood Pressure 161/95 H 02/10/25 12:17 Pulse Oximetry 97 02/10/25 12:17 Oxygen Delivery Room Air 02/10/25 12:17 Critical Care Time Critical Care Time Critical Care Time: No Discharge Plan Discharge Clinical Impression: Dental abscess, Toothache Patient Disposition: Home Condition: Stable Instructions: Antibiotic Form, Dental Abscess (ED), Toothache (ED) Additional Instructions: Advised patient to take medication as prescribed, and follow with dentist as scheduled. Patient Language: Mongolian Prescriptions: New amoxicillin-pot clavulanate [Augmentin] 500-125 mg tablet 1 tablet PO TID Qty: 30 0RF No Action amoxicillin-pot clavulanate 875-125 mg tablet 1 tablet PO BID 10 Days Qty: 20 0RF clindamycin HCl 300 mg capsule 300 mg PO TID 10 Days Qty: 30 0RF ibuprofen 800 mg tablet 800 mg PO TID PRN (Reason: pain) Qty: 30 0RF orphenadrine citrate 100 mg tablet extended release 100 mg PO BID PRN (Reason: pain) Qty: 20 0RF methylprednisolone [Medrol (Yariel)] 4 mg tablets,dose pack See Rx Instructions .ROUTE .COMPLEX Qty: 21 0RF Rx Instructions: orally per package directions clindamycin HCl 300 mg capsule 300 mg PO Q8H Qty: 20 0RF Follow-up/Referrals: Homar,MARYJANE Iraheta [Primary Care Provider] - Stand Alone Forms: Work/School Release IP "
--- OUTSIDE RECORDS SUMMARY | 2025-02-10 12:23 | XMS_ITS | Continuity of Care Document ---
Author Organization [facility] Address [address] [place] [address] Phone Care Team Providers Care Rn Documentation Specialist Name Role Phone Amy Dc Unavailable Unavailable Allergies, Adverse Reactions, Alerts Substance Reaction Status Criticality No Known Allergies Active No Inform ation Medications Medication Instructions Dosage Effective Dates (start - stop) Status Comments amoxicillin 875 mg-potassium clavulanate 125 mg tablet take 1 tablet by oral route every 12 hours 1.00 tablet - Active Procedures Procedure Date OFFICE/OUTPATIENT VISIT, [facility] Ketorolac tromethamine inj Advance Directives Directive Yes / No Effective Date File Name No Information Encounters Encounter Description Practice Location Reason(s) For Visit Diagnoses Date Provider Providers Copied on Encounter OFFICE/OUTPAT IENT VISIT, [facility], [address] [place] [address], [facility], tel:[phone] [place] TOOTH PAIN (chief complaint) Chronic dental infection Dao Reyes. [address] [place] [address], [facility], . 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 STATES HE USED MANY OF THOSE LAST [...] to the area. His dentist is in [place], [place] and he states he can not [...] AND ACETIMINOPHEN THAT HE BUYS AT THE [employer]. STATES HE USED MANY OF THOSE LAST [...] Mental Status Date Cognitive Assessment Orientation - [place] ed to time, place, person, situation. Patient Care Teams Name Effective Dates (start - stop) Status Members No Information
[2025-02-10 12:34] VITALS: BP 161/95; PULSE 88; RESP 16; TEMP 36.4; O2SAT 97
--- OUTSIDE RECORDS SUMMARY | 2025-02-10 12:39 | XMS_ITS | Continuity of Care Document ---
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 Ketorolac tromethamine inj Advance Directives Directive Yes / No Effective Date File Name No Information Encounters Encounter Description Practice Location Reason(s) For Visit Diagnoses Date Provider Providers Copied on Encounter OFFICE/OUTPAT IENT VISIT, [facility], [address] [place] [address], [facility], tel:[phone] [place] TOOTH PAIN (chief complaint) Chronic dental infection Dao Reyes. [address] [place] [address], [facility], . tel:[phone] Family History Family Member Type Diagnosis Age At Onset No Information Payers Payer name Insurance type Covered constitution party ID Authoriza tion(s) No Information Social [...] AND ACETIMINOPHEN THAT HE BUYS AT THE [employer]. STATES HE USED MANY OF THOSE LAST [...] to the area. His dentist is in [place], [place] and he states he can not [...] AND ACETIMINOPHEN THAT HE BUYS AT THE [employer]. STATES HE USED MANY OF THOSE LAST [...] Mental Status Date Cognitive Assessment Orientation - [place] ed to time, place, person, situation. Patient Care Teams Name Effective Dates (start - stop) Status Members No Information
--- OUTSIDE RECORDS SUMMARY | 2025-02-10 12:39 | XMS_ITS | Continuity of Care Document ---
Author Name [facility] Organization [facility] Care Team Providers Care Mechanical Technical Service Specialist Name Role Phone [facility] Unavailable Unavailable Problems Combined list of problems 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 It does not include entries that were removed or entered in error. Problem Status Onset Date Problem Type Date of Resolution Comments Source Adjustment disorder with depressed mood (SNOMED CT 14723229) Active Condition [facility] Cerebral aneurysm, nonruptured (ICD-9-CM 437.3) Active Condition [facility] Congenital arteriovenous malformation Active Condition Jan 17, 2011 Entered By: CHIOMA QUAN Comment: 12/2007 surgery in [facility] Diplopia * (ICD-9-CM 368.2) Active Condition [facility] Myopia Active Condition [facility] Pain of joint of knee (SNOMED CT 6588048242) Active Condition [facility] Pneumonia, organism unspecified Active Condition Jan 17, 2011 Entered By: CHIOMA QUAN Comment: August 2010, received pneumovax vaccineMar 08, 2011 Entered By: CHIOMA QUAN Comment: 02/20/11 rul and rml [facility] Sleep disturbances Active Condition [facility] Tinnitus Active Condition [facility] Vitamin D Deficiency (SCT 99686818) Active Condition [facility] Chest Pain * (ICD-9-CM 786.50) Inactive Condition 03/18/2023 [facility] Cyst, ganglion Inactive Condition 03/18/2023 Jan 17, 2011 Entered By: CHIOMA QUAN Comment: right wrist [facility] Encounters for unspecified Administrative Purpose (ICD-9-CM V68.9) Inactive Condition 03/18/2023 [facility] NEUTROPENIA, unspecified Inactive Condition 03/18/2023 [facility] Vitamin D Deficiency Inactive Condition 03/18/2023 [facility] visit for: services physical separation Active Condition [facility] visit for: refer patient without exam or treatment Active Condition [facility] FLAT FOOT Inactive Condition [facility] METATARSALGIA Active Condition [facility] CHEST PAIN Active Condition [facility] limb pain Active Condition [facility] PHARYNGITIS Inactive Condition [facility] visit for: examination of subpopulation Active Condition [...] DoD visit for: administrative purpose Inactive Condition [facility] Patient Counseling: Active Condition [facility] visit for: ears / hearing exam Active Condition [facility] ASSESSMENT OF PATIENT CONDITION WORK-RELATED Active Condition [facility] SINUSITIS ACUTE Active Condition [facility] PHARYNGITIS ACUTE Inactive Condition [facility] INGROWING NAIL Active Condition [facility] visit for: postsurgical exam Active Condition [facility] [...] Condition [facility] difficulty swallowing (dysphagia) Active Condition [facility] Patient Counseling: Inquiry & Counseling Active Condition [facility] INTRACEREBRAL HEMORRHAGE Active Condition [facility] BACTEREMIA Active Condition [facility] ARTERIOVENOUS MALFORMATION (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) Active Condition [facility] Dietary Counseling Pertaining To Specific Condition Inactive Condition [facility] visit for: screening exam pulmonary tuberculosis Active [...] medical exam w/o abnormal findings Active Diagnosis [facility] Diagnosis: ICD-10-CM Q27.30 Arteriovenous malformation, site unspecified Active Diagnosis [facility] Diagnosis: ICD-10-CM G40.89 Other seizures Active Diagnosis [facility] Allergies, Adverse Reactions, Alerts Combined list of allergies 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 It does not include entries that were removed or entered in error. Substance Category Reaction Severity Reaction type Status Date Reported Comments Source ADHESIVE TAPE Propensity to adverse reaction (finding) Eruption active 1 . [facility] OTHER Drug allergy (disorder) Unknown active 8 [facility] Immunizations Combined list of available immunizations from the Department of Defense and [facility] facilities. Immunization Series Date Given Administered By Site Reaction Lot Number CVX Code Drug Jackspooler Status Comments Source PNEUMOCOCCAL POLYSACCHARID E PPV23 2022 [facility]AR[facility]RONSONVIKKI H R RIGHT DELTO ID [id number] 33 complet ed [facility] TDAP 2022 BRIEN PIERCE H R LEFT DELTO ID [id number] 115 complet ed [facility] INFLUENZA, UNSPECIFIED FORMULATION 2011 88 complet ed [facility] INFLUENZA, UNSPECIFIED FORMULATION [address] [facility] tuberculin skin test; purified protein derivative solution, intradermal 0 2009 KAREEN ARMENDARIZ [id number] [place] ([facility]) complet ed tuberculi n skin test; purified protein derivativ e solution, intraderm al DoD tuberculin skin test; purified protein derivative solution, intradermal 1 2009 JAZZ DAVIS [id number] [place] [employer] ([facility]) complet ed tuberculi n skin test; purified protein derivativ e solution, intraderm al DoD tuberculin skin test; purified protein derivative solution, intradermal 1 2009 CIERA FOREMAN [id number] [place] [employer] ([facility]) complet ed tuberculi n skin test; purified protein derivativ e solution, intraderm al DoD tuberculin skin test; purified protein derivative solution, intradermal 1 2009 WILTON SILVA [id number] 96 [place] [employer] ([facility]) complet ed tuberculi n skin test; purified protein derivativ e solution, intraderm al DoD typhoid Vi capsular polysaccharid e vaccine 1 2009 WILTON SILVA [id number] [place] [employer] ([facility]) complet ed typhoid Vi capsular polysacch aride vaccine DoD Novel Influenza-H1N 1-09, live virus for nasal administratio n 1 2009 WILTON SILVA [id number] 125 [employer] (MED) complet ed Novel Influenza -G9Y1-06, live virus for nasal administr ation DoD influenza virus vaccine, live, attenuated, for intranasal use 0 2008 UNK 111 Unknown (UNK) comple t ed influenza virus vaccine, live, attenuate d, for intranasa l use DoD influenza virus vaccine, live, attenuated, for intranasal use 1 2008 SERA PRASAD Radha [id number] 111 [employer] (MED) complet ed influenza virus vaccine, live, attenuate d, for intranasa l use DoD tuberculin skin test; purified protein derivative solution, intradermal 1 2007 KAREEN ARMENDARIZ [id number] 96 [place] (PD) complet ed tuberculi n skin test; purified protein derivativ e solution, intraderm al DoD influenza virus vaccine, live, attenuated, for intranasal use 1 2007 KAREEN ARMENDARIZ [id number] 111 [employer] [facility] (MED) complet ed influenza virus vaccine, live, attenuate d, for intranasa l use DoD influenza virus vaccine, unspecified formulation 0 2006 UNK 88 Unknown (UNK) comple t ed influenza virus vaccine, unspecifi ed formulati on DoD tuberculin skin test; purified protein derivative solution, intradermal 1 2006 DAVISJAZZ CARNES [id number] 96 [place] (PD) complet ed tuberculi n skin test; purified protein derivativ e solution, intraderm al DoD influenza virus vaccine, live, attenuated, for intranasal use 1 2006 PASQUALE SINHA Neetu [id number] 111 [employer] (MED) complet ed influenza virus vaccine, live, attenuate d, for intranasa l use DoD hepatitis B vaccine, adult dosage 3 2006 UNK 43 Unknown (UNK) comple t ed hepatitis B vaccine, adult dosage DoD hepatitis A and hepatitis B vaccine 3 2006 ROQUE WHITNEY [id number] 104 [facility] ([facility] complet ed hepatitis A [...] Mar 18, 2024 10:55 AM Reporting Lab: [facility] [address] [place] [address] Performing Lab: [facility] [address] [facility] [address] [facility] CBC ERYTHROCYTE S [#/VOLUME] IN BLOOD BY AUTOMATED COUNT 4.62 10*6/u L 4.10 - 5.70 03/18 Specimen Type: BLOOD No comment entered. Ordering Provider: Nicanor KENNEDY Report Released Date/Time: Mar 18, 2024 10:55 AM Reporting Lab: [address] [address] Performing Lab: [address] [address] [facility] CBC HEMOGLOBIN [MASS/VOLUM E] IN BLOOD 14.3 g/dL 13.1 - 16.8 03/18 Specimen Type: BLOOD No comment entered. Ordering Provider: Nicanor KENNEDY Report Released Date/Time: Mar 18, 2024 10:55 AM Reporting Lab: [address] [address] Performing Lab: [address] [phone] [place] [address] [facility] CBC HEMATOCRIT [VOLUME FRACTION] OF BLOOD 42.9 38.2 - 48.4 03/18 Specimen Type: BLOOD No comment entered. Ordering Provider: Nicanor KENNEDY Report Released Date/Time: Mar 18, 2024 10:55 AM Reporting Lab: [address] [address] Performing Lab: [address] [address] [facility] CBC MCV [ENTITIC VOLUME] BY AUTOMATED COUNT 92.9 fL 80.0 - 100.0 03/18 Specimen Type: BLOOD No comment entered. Ordering Provider: Nicanor KENNEDY Report Released Date/Time: Mar 18, 2024 10:55 AM Reporting Lab: [address] [address] Performing Lab: [address] [address] [facility] CBC MCH [ENTITIC MASS] BY AUTOMATED COUNT 31.0 pg 27.0 - 34.0 03/18 Specimen Type: BLOOD No comment entered. Ordering Provider: Nicanor KENNEDY Report Released Date/Time: Mar 18, 2024 10:55 AM Reporting Lab: [address] [address] Performing Lab: [place] [id number] [facility] [address] [facility] CBC MCHC [MASS/VOLUM E] BY AUTOMATED COUNT 33.3 g/dL 33.0 - 36.0 03/18 Specimen Type: BLOOD No comment entered. Ordering Provider: Nicanor KENNEDY Report Released Date/Time: Mar 18, 2024 10:55 AM Reporting Lab: [address] [address] Performing Lab: [address] [address] [facility] CBC PLATELETS [#/VOLUME] IN BLOOD BY AUTOMATED COUNT 237 10*3/u L 150 - 400 03/18 Specimen Type: BLOOD No comment entered. Ordering Provider: Nicanor KENNEDY Report Released Date/Time: Mar 18, 2024 10:55 AM Reporting Lab: [address] [address] Performing Lab: [address] [address] [facility] CBC PLATELET MEAN VOLUME [ENTITIC VOLUME] IN BLOOD BY AUTOMATED COUNT 10.6 fL 7.5 - 11.2 03/18 Specimen Type: BLOOD No comment entered. Ordering Provider: Nicanor KENNEDY Report Released Date/Time: Mar 18, 2024 10:55 AM Reporting Lab: [address] [address] Performing Lab: [address] [address] [facility] CBC ERYTHROCYTE DISTRIBUTIO N WIDTH [RATIO] BY AUTOMATED COUNT 12.2 11.8 - 15.1 03/18 Specimen Type: BLOOD No comment entered. Ordering Provider: Nicanor KENNEDY Report Released Date/Time: Mar 18, 2024 10:55 AM Reporting Lab: [address] [address] Performing Lab: [address] [place] [address] [facility] CBC LYMPHOCYTES /100 LEUKOCYTES IN BLOOD BY AUTOMATED COUNT 30 03/18 Specimen Type: BLOOD No comment entered. Ordering Provider: Nicanor KENNEDY Report Released Date/Time: Mar 18, 2024 10:55 AM Reporting Lab: [facility] [address] [place] [address] Performing Lab: [facility] [address] [place] [address] [facility] CBC MONOCYTES/1 00 LEUKOCYTES IN BLOOD BY AUTOMATED COUNT 8 03/18 Specimen Type: BLOOD No comment entered. Ordering Provider: Nicanor KENNEDY Report Released Date/Time: Mar 18, 2024 10:55 AM Reporting Lab: [facility] [address] [place] [address] Performing Lab: [address] [address] [facility] CBC NEUTROPHILS /100 LEUKOCYTES IN BLOOD BY AUTOMATED COUNT 58 03/18 Specimen Type: BLOOD No comment entered. Ordering Provider: Nicanor KENNEDY Report Released Date/Time: Mar 18, 2024 10:55 AM Reporting Lab: [facility] [address] [place] [address] Performing Lab: [address] [address] [facility] CBC EOSINOPHILS /100 LEUKOCYTES IN BLOOD BY AUTOMATED COUNT 3 03/18 Specimen Type: BLOOD No comment entered. Ordering Provider: Nicanor KENNEDY Report Released Date/Time: Mar 18, 2024 10:55 AM Reporting Lab: [facility] [address] [place] [address] Performing Lab: [facility] [address] [place] [address] [facility] CBC BASOPHILS/1 00 LEUKOCYTES IN BLOOD BY AUTOMATED COUNT 1 03/18 Specimen Type: BLOOD No comment entered. Ordering Provider: Nicanor KENNEDY Report Released Date/Time: Mar 18, 2024 10:55 AM Reporting Lab: [facility] [address] [place] [address] Performing Lab: [facility] [address] [place] [address] [facility] CBC LYMPHOCYTES [#/VOLUME] IN BLOOD BY AUTOMATED COUNT 1.42 10*3/u L 0.77 - 4.50 03/18 Specimen Type: BLOOD No comment entered. Ordering Provider: Nicanor KENNEDY Report Released Date/Time: Mar 18, 2024 10:55 AM Reporting Lab: [place] [phone] Performing Lab: [place] [phone] [facility] CBC MONOCYTES [#/VOLUME] IN BLOOD BY AUTOMATED COUNT 0.38 10*3/u L 0.19 - 0.80 03/18 Specimen Type: BLOOD No comment entered. Ordering Provider: Nicanor KENNEDY Report Released Date/Time: Mar 18, 2024 10:55 AM Reporting Lab: [address] [address] Performing Lab: [facility] [address] [place], [place] [phone] [place] [address] [facility] CBC NEUTROPHILS [#/VOLUME] IN BLOOD BY AUTOMATED COUNT 2.72 10*3/u L 2.10 - 8.00 03/18 Specimen Type: BLOOD No comment entered. Ordering Provider: Nicanor KENNEDY Report Released Date/Time: Mar 18, 2024 10:55 AM Reporting Lab: [facility] [address] [place] [address] Performing Lab: [address] [address] [facility] CBC EOSINOPHILS [#/VOLUME] IN BLOOD BY AUTOMATED COUNT 0.13 10*3/u L 0.00 - 0.60 03/18 Specimen Type: BLOOD No comment entered. Ordering Provider: Nicanor KENNEDY Report Released Date/Time: Mar 18, 2024 10:55 AM Reporting Lab: [address] [address] Performing Lab: [address] [phone] [place] [address] [facility] CBC BASOPHILS [#/VOLUME] IN BLOOD BY AUTOMATED COUNT 0.06 10*3/u L 0.00 - 0.20 03/18 Specimen Type: BLOOD No comment entered. Ordering Provider: Nicanor KENNEDY Report Released Date/Time: Mar 18, 2024 10:55 AM Reporting Lab: [place] [address] Performing Lab: [address] [phone] [facility] COMPREHENS GUILLERMO METABOLIC PANEL CREATININE [MASS/VOLUM E] IN SERUM OR PLASMA 1.14 mg/dL 0.7 - 1.3 03/18 Specimen Type: PLASMA Comment: No hemolysis noted. Ordering Provider: Nicanor KENNEDY Report Released Date/Time: Mar 18, 2024 10:55 AM Reporting Lab: [place] [phone] Performing Lab: [address] [phone] [place] [address] [facility] COMPREHENS GUILLERMO METABOLIC PANEL UREA NITROGEN [MASS/VOLUM E] IN SERUM OR PLASMA 16.6 mg/dL 9.0 - 25.0 03/18 Specimen Type: PLASMA Comment: No hemolysis noted. Ordering Provider: Nicanor KENNEDY Report Released Date/Time: Mar 18, 2024 10:55 AM Reporting Lab: [place] [phone] Performing Lab: [address] [address] [facility] COMPREHENS GUILLERMO METABOLIC PANEL GLUCOSE [MASS/VOLUM E] IN SERUM OR PLASMA 108 mg/dL 72 - 99 03/18 H Specimen Type: PLASMA Comment: No hemolysis noted. Ordering Provider: Nicanor KENNEDY Report Released Date/Time: Mar 18, 2024 10:55 AM Reporting Lab: [facility] [address] [place] [address] Performing Lab: [facility] [address] [place] [address] [facility] COMPREHENS GUILLERMO METABOLIC PANEL SODIUM [MOLES/VOLU ME] IN SERUM OR PLASMA 139 meq/L 136 - 145 03/18 Specimen Type: PLASMA Comment: No hemolysis noted. Ordering Provider: Nicanor KENNEDY Report Released Date/Time: Mar 18, 2024 10:55 AM Reporting Lab: [place] [address] Performing Lab: [address] [phone] [facility] COMPREHENS GUILLERMO METABOLIC PANEL POTASSIUM [MOLES/VOLU ME] IN SERUM OR PLASMA 4.9 meq/L 3.5 - 5 03/18 Specimen Type: PLASMA Comment: No hemolysis noted. Ordering Provider: Nicanor KENNEDY Report Released Date/Time: Mar 18, 2024 10:55 AM Reporting Lab: [facility] [address] [place] [address] Performing Lab: [facility] [address] [place] [address] [facility] COMPREHENS GUILLERMO METABOLIC PANEL CHLORIDE [MOLES/VOLU ME] IN SERUM OR PLASMA 106 meq/L 98 - 107 03/18 Specimen Type: PLASMA Comment: No hemolysis noted. Ordering Provider: Nicanor KENNEDY Report Released Date/Time: Mar 18, 2024 10:55 AM Reporting Lab: [facility] [address] [place] [phone] Performing Lab: [facility] [address] [place] [address] [facility] COMPREHENS GUILLERMO METABOLIC PANEL CARBON DIOXIDE, TOTAL [MOLES/VOLU ME] IN SERUM OR PLASMA 25 meq/L 22 - 31 03/18 Specimen Type: PLASMA Comment: No hemolysis noted. Ordering Provider: Nicanor KENNEDY Report Released Date/Time: Mar 18, 2024 10:55 AM Reporting Lab: [facility] [address] [place], [place] [phone] Performing Lab: [facility] [address] [place] [phone] [place] [address] [facility] COMPREHENS GUILLERMO METABOLIC PANEL CALCIUM [MASS/VOLUM E] IN SERUM OR PLASMA 9.3 mg/dL 8.4 - 10.4 03/18 Specimen Type: PLASMA Comment: No hemolysis noted. Ordering Provider: Nicanor KENNEDY Report Released Date/Time: Mar 18, 2024 10:55 AM Reporting Lab: [place] [address] Performing Lab: [address] [facility] COMPREHENS GUILLERMO METABOLIC PANEL PROTEIN [MASS/VOLUM E] IN SERUM OR PLASMA 6.9 g/dL 6 - 8.6 03/18 Specimen Type: PLASMA Comment: No hemolysis noted. Ordering Provider: Nicanor KENENDY Report Released Date/Time: Mar 18, 2024 10:55 AM Reporting Lab: [facility] [address] [place], [place] [phone] Performing Lab: [address] [phone] [place] [address] [facility] COMPREHENS GUILLERMO METABOLIC PANEL ALBUMIN [MASS/VOLUM E] IN SERUM OR PLASMA 4.3 g/dL 3.4 - 5 03/18 Specimen Type: PLASMA Comment: No hemolysis noted. Ordering Provider: Nicanor KENNEDY Report Released Date/Time: Mar 18, 2024 10:55 AM Reporting Lab: [facility] [address] [place], [place] [phone] Performing Lab: [address] [address] [facility] COMPREHENS GUILLERMO METABOLIC PANEL BILIRUBIN.T OTAL [MASS/VOLUM E] IN SERUM OR PLASMA 0.5 mg/dL 0.2 - 1.2 03/18 Specimen Type: PLASMA Comment: No hemolysis noted. Ordering Provider: Nicanor KENNEDY Report Released Date/Time: Mar 18, 2024 10:55 AM Reporting Lab: [address] [address] Performing Lab: [address] [address] [facility] COMPREHENS GUILLERMO METABOLIC PANEL ALKALINE PHOSPHATASE [ENZYMATIC ACTIVITY/VO LUME] IN SERUM OR PLASMA 73 U/L 40 - 150 03/18 Specimen Type: PLASMA Comment: No hemolysis noted. Ordering Provider: Nicanor KENNEDY Report Released Date/Time: Mar 18, 2024 10:55 AM Reporting Lab: [address] [address] Performing Lab: [address] [address] [facility] COMPREHENS GUILLERMO METABOLIC PANEL ASPARTATE AMINOTRANSF ERASE [ENZYMATIC ACTIVITY/VO LUME] IN SERUM OR PLASMA 28 U/L 5 - 34 03/18 Specimen Type: PLASMA Comment: No hemolysis noted. Ordering Provider: Nicanor KENNEDY Report Released Date/Time: Mar 18, 2024 10:55 AM Reporting Lab: [address] [address] Performing Lab: [address] [phone] [facility] COMPREHENS GUILLERMO METABOLIC PANEL ALANINE AMINOTRANSF ERASE [ENZYMATIC ACTIVITY/VO LUME] IN SERUM OR PLASMA 24 U/L 8 - 40 03/18 Specimen Type: PLASMA Comment: No hemolysis noted. Ordering Provider: Nicanor KENNEDY Report Released Date/Time: Mar 18, 2024 10:55 AM Reporting Lab: [address] [address] Performing Lab: [address] [address] [facility] COMPREHENS GUILLERMO METABOLIC PANEL GLOMERULAR FILTRATION RATE/1.73 SQ M.PREDICTED [VOLUME RATE/AREA] IN SERUM, PLASMA OR BLOOD BY CREATININE- BASED FORMULA (CKD-EPI 2020) 85.5 60 03/18 Specimen Type: PLASMA Comment: No hemolysis noted. Ordering Provider: Nicanor KENNEDY Report Released Date/Time: Mar 18, 2024 10:55 AM Reporting Lab: [address] [address] Performing Lab: [address] [phone] [place] [address] [facility] HGA1C HEMOGLOBIN A1C/HEMOGLO BIN.TOTAL IN BLOOD 5.5 4.0 - 6.0 03/18 Specimen Type: BLOOD No comment entered. Ordering Provider: Nicanor KENNEDY Report Released Date/Time: Mar 18, 2024 10:55 AM Reporting Lab: [address] [address] Performing Lab: [address] [address] [facility] LIPID PANEL (STL) CHOLESTEROL [MASS/VOLUM E] IN SERUM OR PLASMA 209 mg/dL 0 - 200 03/18 H Specimen Type: PLASMA Comment: No hemolysis noted. Ordering Provider: Nicanor KENNEDY Report Released Date/Time: Mar 18, 2024 10:55 AM Reporting Lab: [address] [address] Performing Lab: [address] [address] [facility] LIPID PANEL (STL) TRIGLYCERID E [MASS/VOLUM E] IN SERUM OR PLASMA 247 mg/dL 0 - 150 03/18 H Specimen Type: PLASMA Comment: No hemolysis noted. Ordering Provider: Nicanor KENNEDY Report Released Date/Time: Mar 18, 2024 10:55 AM Reporting Lab: [address] [address] Performing Lab: [address] [place] [phone] [facility] LIPID PANEL (STL) CHOLESTEROL IN LDL [MASS/VOLUM E] IN SERUM OR PLASMA BY CALCULATION 106 mg/dL 03/18 Specimen Type: PLASMA Comment: No hemolysis noted. Ordering Provider: Nicanor KENNEDY Report Released Date/Time: Mar 18, 2024 10:55 AM Reporting Lab: [place] [address] Performing Lab: [address] [facility] LIPID PANEL (STL) CHOLESTEROL IN HDL [MASS/VOLUM E] IN SERUM OR PLASMA 54 mg/dL 40 03/18 Specimen Type: PLASMA Comment: No hemolysis noted. Ordering Provider: Nicanor KENNEDY Report Released Date/Time: Mar 18, 2024 10:55 AM Reporting Lab: [place] [address] Performing Lab: [address] [facility] TSH W/ REFLEX FT4 (STL) THYROTROPIN [UNITS/VOLU ME] IN SERUM OR PLASMA 0.605 u[IU]/ mL 0.47 - 5 03/18 Specimen Type: PLASMA No comment entered. Ordering Provider: Nicanor KENNEDY Report Released Date/Time: Mar 18, 2024 10:55 AM Reporting Lab: [place] [address] Performing Lab: [address] [facility] VITAMIN D, 25-HYDROXY 25-HYDROXYV ITAMIN D3 [MASS/VOLUM E] IN SERUM OR PLASMA 35.9 ng/mL 30 - 96 03/18 Specimen Type: SERUM No comment entered. Ordering Provider: Nicanor KENNEDY Report Released Date/Time: Mar 18, 2024 10:55 AM Reporting [id number]|2025-02-10 12:57:00|2025-02-10 12:56:00|XMS_ITS|[facility]|External Medical Summaries|[id number]|" Clinical Summary Created on: February 10, 2025 Sophie Akbardaryn Frederick : 07/07/1929 Sex: Female Author Organization [facility] Address [facility] [place] [address] Care Team Providers Care Mechanical Technical Service Specialist Name Role Phone IsabellaPrem oliva Primary Care Provider [phone] Allergies Active Allergy Reactions Criticality Noted Date Comments Cephalexin Rash Medium 10/31/2022 Cephalothin Rash Medium 10/31/2022 Codeine Rash Medium 10/31/2022 Medications levothyroxine (SYNTHROID) 100 MCG tablet Take 0.5 tablets (50 mcg total) by mouth every morning. Active diphenhydrAMINE -APAP (TYLENOL PM) 25-500 MG Tab tablet Take 1 tablet by mouth nightly at bedtime. Active allopurinol (ZYLOPRIM) 100 MG tablet Take 1 tablet (100 mg total) by mouth daily. Active indomethacin (INDOCIN) 50 MG capsule Take 1 capsule (50 mg total) by mouth 3 (three) times daily with meals. 09/25/2023 Active Active Problems Problem Noted Date Diagnosed Date Anemia 12/25/2022 Myelodysplastic syndrome (CMS/HCC HHS/HCC) 12/25 Family History Medical History Relation Comments Diabetes Daughter Relation Status Comments Daughter Alive Social History Tobacco Use Types Packs/Day Years Used Date Smoking Tobacco: Never Smokeless Tobacco: Never Tobacco Cessation:Counseling Given: Not Answered Alcohol Use Standard Drinks/Week Comments Not Currently 0 (1 standard drink = 0.6 oz pur e alcohol) Comments Unknown Sex and Gender Information Value Date Recorded Sex Assigned at Not on file Legal Sex Female 2:41 PM [employer] Gender Identity Not on file Sexual Orientation Not on file Last Filed Vital Signs Vital Sign Reading Time Taken Comments Blood Pressure 98/81 10/02/2023 4:45 PM [employer] Pulse 82 10/02/2023 4:45 PM [employer] Temperature 36.9 C (98.4 F) 10/02/2023 3:22 PM [employer] Respiratory Rate 15 10/02/2023 4:45 PM [employer] Oxygen Saturation 98% 10/02/2023 4:45 PM [employer] Inhaled Oxygen Concentration - - Weight 59 kg (130 lb) 10/02/2023 3:22 PM [employer] Height 149.9 cm (4' 11 ) 10/02/2023 3:22 PM [employer] Body Mass Index 26.26 10/02/2023 3:22 PM [employer] Plan of Treatment Health Maintenance Due Date Last Done Comments Zoster Vaccines (1 of 2) 07/07/1981 Annual Medicare Wellness Visit 07/07/1996 RSV Immunization or 60+ Years (1 - 1-dose 75+ series) 07/07/2006 COVID-19 Vaccine (3 - 2023-2 5 season) 2024 01/05/2021, 12/06/2020 DTaP, Tdap and Td Vaccines ( 3 - Td or Tdap) 04/09/2028 04/09/2018, 09/29/2002 Pneumococcal Vaccine: 50+ Years Completed 04/09/2018, 07/30/2002 Meningococcal B Vaccine Aged Out No l onger eligible based on patient's age to complete this topic Meningococcal Vaccine Aged Out No samuel crow eligible based on patient's age to complete this topic RSV Immunizations Under 20 Months Aged Out No longer eligible b ased on patient's age to complete this topic Insurance MEDICARE [employer] Care Teams Mechanical Technical Service Specialist Relationship Specialty Start Date End Date Prem Underwood DO [address] [place] [address] PCP - General FAMILY PRACTICE 01/08/23 "
== END 2025-02-10 12:34 | disposition home or self-care (01) ==
LOC: CHSED 12:37
PROVIDERS: Emergency Provider Emergency Medicine; PCP Physician Assistant
DX: K04.7 Periapical abscess without sinus (principal); Z86.73 Personal history of transient ischemic attack (TIA), and cerebral infarction without residual deficits
CPT/HCPCS: 99283

== ENCOUNTER 2025-04-09 13:14 | Emergency (ER) | payer OTHER, SELFPAY ==
[2025-04-09 13:14] VITALS: BP 135/83; PULSE 82; RESP 16; TEMP 36.7; O2SAT 98
--- OUTSIDE RECORDS SUMMARY | 2025-04-09 13:17 | XMS_ITS | Patient Health Record ---
Author Organization [facility] Address [address] [place] [address] Care Team Providers Care Tailings Worker Name Role Phone Goran Mckinney Primary Care [...]
--- OUTSIDE RECORDS SUMMARY | 2025-04-09 13:18 | XMS_ITS | Continuity of Care Document ---
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 It does not include entries that were removed or entered in error. Problem Status Onset Date Problem Type Date of Resolution Comments Source Adjustment disorder with depressed mood (SNOMED CT 27103183) Active Condition [facility] Cerebral aneurysm, nonruptured (ICD-9-CM 437.3) Active Condition [facility] Congenital arteriovenous malformation Active Condition Jan 17, 2011 Entered By: CHIOMA QUAN Comment: 12/2007 surgery in [facility] Diplopia * (ICD-9-CM 368.2) Active Condition [facility] Myopia Active Condition [facility] Pain of joint of knee (SNOMED CT 3595226226) Active Condition [facility] Pneumonia, organism unspecified Active Condition Jan 17, 2011 Entered By: CHIOMA QUAN Comment: August 2010, received pneumovax vaccineMar 08, 2011 Entered By: CHIOMA QUAN Comment: 02/20/11 rul and rml [facility] Sleep disturbances Active Condition [facility] Tinnitus Active Condition [facility] Vitamin D Deficiency (SCT 49296299) Active Condition [facility] Chest Pain * (ICD-9-CM 786.50) Inactive Condition 03/18/2023 [facility] Cyst, ganglion Inactive Condition 03/18/2023 Jan 17, 2011 Entered By: CHIOMA QUAN Comment: right wrist [facility] Encounters for unspecified Administrative Purpose (ICD-9-CM V68.9) Inactive Condition 03/18/2023 [facility] NEUTROPENIA, unspecified Inactive Condition 03/18/2023 [facility] Vitamin D Deficiency Inactive Condition 03/18/2023 [facility] visit for: services physical separation Active Condition DoD visit for: refer patient without exam or treatment Active Condition DoD FLAT FOOT Inactive Condition DoD METATARSALGIA Active Condition DoD CHEST PAIN Active Condition DoD limb pain Active Condition DoD PHARYNGITIS Inactive Condition DoD visit for: examination of [...] DoD visit for: administrative purpose Inactive Condition [facility] Patient Counseling: Active Condition Do D visit for: ears / hearing exam Active Condition DoD ASSESSMENT OF PATIENT CONDITION WORK-RELATED Active Condition DoD SINUSITIS ACUTE Active Condition DoD PHARYNGITIS ACUTE Inactive Condition DoD INGROWING NAIL Active Condition DoD visit for: postsurgical exam [...] Condition DoD difficulty swallowing (dysphagia) Active Condition [facility] Patient Counseling: Inquiry & Counseling Active Condition DoD INTRACEREBRAL HEMORRHAGE Active Condition DoD BACTEREMIA Active Condition DoD ARTERIOVENOUS MALFORMATION (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 Medication Details Route Status Patient Instructions Prescription Expires Prescription Number Last Dispense Date Ordering Provider Order Date Order Qty Source NICOTINE 21MG/24HRS PATCH APPLY 1 PATCH TO SKIN SITE EVERY MORNING REMOVE OLD PATCH BEFORE APPLYING NEW ONE. ROTATE SITES. DO NOT SMOKE WHILE WEARING PATCH. TRANSD ERMAL ACTIVE 03/30/2026 [id number] AARON KENNEDY 2024 28 [facility] NICOTINE POLACRILEX 2MG MINI LOZENGE DISSOLVE 1 LOZENGE BY MOUTH EVERY 4 HOURS NEEDED .DO NOT SMOKE WHILE USING THIS MEDICATI ON. ORAL ACTIVE 03/30/2026 [id number] 5 AARON KENNEDY 2024 162 [facility] Allergies, Adverse Reactions, Alerts Combined list of allergies 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 It does not include entries that were removed or entered in error. Substance Category Reaction Severity Reaction type Status Date Reported Comments Source ADHESIVE TAPE Propensity to adverse reaction (finding) Eruption active 1 [facility] OTHER Drug allergy (disorder) Unknown active 8 [facility] Immunizations Combined list of available immunizations from the 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 TDAP 2022 BRIEN PIERCE H R LEFT DELTO ID [id number] 115 complet ed [facility] TDAP 5 2017 115 complet ed HISTORICA L INFORMATI ON - FROM OTHER [facility] INFLUENZA, UNSPECIFIED FORMULATION 2011 88 complet ed [facility] INFLUENZA, UNSPECIFIED FORMULATION 2010 88 complet ed [facility] tuberculin skin test; purified protein derivative solution, intradermal 0 2009 KAREEN ARMENDARIZ [id number] 96 [place] [employer] ([facility]) complet ed tuberculi n skin test; purified protein derivativ e solution, intraderm al DoD tuberculin skin test; purified protein derivative solution, intradermal 1 2009 JAZZ DAVIS [id number] 96 [place] [employer] ([facility]) complet ed tuberculi n skin test; purified protein derivativ e solution, intraderm al DoD tuberculin skin test; purified protein derivative solution, intradermal 1 2009 CIERA FOREMAN [id number] 96 [place] [employer] ([facility]) complet ed tuberculi n skin test; purified protein derivativ e solution, intraderm al DoD tuberculin skin test; purified protein derivative solution, intradermal 1 2009 WILTON SILVA [id number] 96 [facility] ([facility]) complet ed tuberculi n skin test; purified protein derivativ e solution, intraderm al DoD typhoid Vi capsular polysaccharid e vaccine 1 2009 WILTON SILVA [id number] [facility] ([facility]) complet ed typhoid Vi capsular polysacch aride vaccine DoD Novel Influenza-H1N 1-09, live virus for nasal administratio n 1 2009 WILTON SILVA [id number] 125 [employer] (MED) complet ed Novel Influenza -P1Q7-28, live virus for nasal administr ation DoD influenza virus vaccine, live, attenuated, for intranasal use 0 2008 UNK 111 Unknown (UNK) comple t ed influenza virus vaccine, live, attenuate d, for intranasa l use DoD influenza virus vaccine, live, attenuated, for intranasal use 1 2008 SERA PRASAD [id number] 111 [employer] (MED) complet ed influenza virus vaccine, live, attenuate d, for intranasa l use DoD tuberculin skin test; purified protein derivative solution, intradermal 1 2007 KAREEN ARMENDARIZ [id number] 96 [place] (PD) complet ed tuberculi n skin test; purified protein derivativ e solution, intraderm al DoD influenza virus vaccine, live, attenuated, for intranasal use 1 2007 KAREEN ARMENDARIZ [id number] 111 [employer] (MED) complet ed influenza virus vaccine, live, attenuate d, for intranasa l use DoD influenza virus vaccine, unspecified formulation 0 2006 UNK 88 Unknown (UNK) comple t ed influenza virus vaccine, unspecifi ed formulati on DoD tuberculin skin test; purified protein derivative solution, intradermal 1 2006 JAZZ DAVIS [id number] [place] (PD) complet ed tuberculi n skin test; purified protein derivativ e solution, intraderm al DoD influenza virus vaccine, live, attenuated, for intranasal use 1 2006 PASQUALE SINHA [id number] 111 [employer] (MED) complet ed influenza virus vaccine, live, attenuate d, for intranasa l use DoD hepatitis B vaccine, adult dosage 3 2006 UNK 43 Unknown (UNK) comple t ed hepatitis B vaccine, adult dosage DoD hepatitis A and hepatitis B vaccine 3 2006 ROQUE WHITNEY [id number] [place] [address] (SKB) complet ed hepatitis A and hepatitis B vaccine DoD tetanus and diphtheria toxoids, adsorbed, preservative free, for adult use (2 Lf of tetanus toxoid and 2 Lf of diphtheria toxoid) 0 2005 UNK 09 Unknown (UNK) comple t ed tetanus and diphtheri a toxoids, adsorbed, preservat alejandra free, for adult use (2 Lf of [...] ed hepatitis A vaccine, adult dosage DoD HEP B, ADOLESCENT OR PEDIATRIC 3 1997 08 complet ed HISTORICA L INFORMATI ON - FROM OTHER [facility] HEP B, ADOLESCENT OR PEDIATRIC 2 1997 08 complet ed HISTORICA L INFORMATI ON - FROM OTHER REGISTRY, [facility] HEP B, ADOLESCENT OR PEDIATRIC 1 1997 08 complet ed HISTORICA L INFORMATI ON - FROM OTHER REGISTRY, [facility] DTP 4 1991 01 complet ed HISTORICA L INFORMATI ON - FROM OTHER REGISTRY, [facility] HIB, UNSPECIFIED FORMULATION 1 1991 17 complet ed HISTORICA L INFORMATI ON - FROM OTHER REGISTRY, [facility] MMR 2 1991 03 complet ed HISTORICA L INFORMATI ON - FROM OTHER REGISTRY, [facility] TRIVALENT OPV 4 1991 02 complet ed HISTORICA L INFORMATI ON - FROM OTHER REGISTRY, [facility] DTP 3 1989 01 complet ed HISTORICA L INFORMATI ON - FROM OTHER REGISTRY, [facility] TRIVALENT OPV 3 1989 02 complet ed HISTORICA L INFORMATI ON - FROM OTHER REGISTRY, [facility] MMR 1 1988 03 complet ed HISTORICA L INFORMATI ON - FROM OTHER REGISTRY, [facility] DTP 3 1987 01 complet ed HISTORICA L INFORMATI ON - FROM OTHER REGISTRY, [facility] TRIVALENT OPV 3 1987 02 complet ed HISTORICA L INFORMATI ON - FROM OTHER REGISTRY, [facility] DTP 2 1987 complet ed HISTORICA L INFORMATI ON - FROM OTHER REGISTRY, [facility] TRIVALENT OPV 2 1987 02 complet ed HISTORICA L INFORMATI ON - FROM OTHER REGISTRY, [facility] DTP 1 1987 01 complet ed HISTORICA L INFORMATI ON - FROM OTHER REGISTRY, [facility] TRIVALENT OPV 1 1987 02 complet ed HISTORICA L INFORMATI ON - FROM OTHER REGISTRY, [facility] Results Combined list of recent chemistry, hematology and other laboratory results from Department of Defense and Veterans Affairs, ranging from 15 months to all on record, depending upon the facility. Order Name Results Value Reference Range Date Interpretation Specimen Comments Source HGA1C HEMOGLOBIN A1C/HEMOGLOB IN.TOTAL IN BLOOD 5.9 4.0 - 6.0 03/29 Specimen Type: BLOOD No comment entered. Ordering Provider: Nicanor KENNEDY Report Released Date/Time: Mar 29, 2025 08:53 AM Reporting Lab: [facility] [address] [place], [place] [phone] Performing Lab: [place] [phone] [facility] TSH W/ REFLEX FT4 (STL) THYROTROPIN [UNITS/VOLUM E] IN SERUM OR PLASMA 1.606 u[IU]/ mL 0.47 - 5 03/29 Specimen Type: PLASMA No comment entered. Ordering Provider: Nicanor KENNEDY Report Released Date/Time: Mar 29, 2025 08:53 AM Reporting Lab: [place] [id number] Performing Lab: [address] [facility] CBC LEUKOCYTES [#/VOLUME] IN BLOOD BY AUTOMATED COUNT 5.4 10*3/u L 3.6 - 11.2 03/29 Specimen Type: BLOOD No comment entered. Ordering Provider: Nicanor KENNEDY Report Released Date/Time: Mar 29, 2025 08:53 AM Reporting Lab: [place] [phone] Performing Lab: [place] [phone] [facility] CBC ERYTHROCYTES [#/VOLUME] IN BLOOD BY AUTOMATED COUNT 4.83 10*6/u L 4.10 - 5.70 03/29 Specimen Type: BLOOD No comment entered. Ordering Provider: Nicanor KENNEDY Report Released Date/Time: Mar 29, 2025 08:53 AM Reporting Lab: [place] [phone] Performing Lab: [place] [phone] [facility] CBC HEMOGLOBIN [MASS/VOLUME ] IN BLOOD 14.9 g/dL 13.1 - 16.8 03/29 Specimen Type: BLOOD No comment entered. Ordering Provider: Nicanor KENNEDY Report Released Date/Time: Mar 29, 2025 08:53 AM Reporting Lab: [address] [phone] Performing Lab: [address] [phone] [place] [address] [facility] CBC HEMATOCRIT [VOLUME FRACTION] OF BLOOD 44.7 38.2 - 48.4 03/29 Specimen Type: BLOOD No comment entered. Ordering Provider: Nicanor KENNEDY Report Released Date/Time: Mar 29, 2025 08:53 AM Reporting Lab: [address] [address] Performing Lab: [address] [phone] [place] [address] [facility] CBC MCV [ENTITIC VOLUME] BY AUTOMATED COUNT 92.5 fL 80.0 - 100.0 03/29 Specimen Type: BLOOD No comment entered. Ordering Provider: Nicanor KENNEDY Report Released Date/Time: Mar 29, 2025 08:53 AM Reporting Lab: [address] [address] Performing Lab: [address] [phone] [facility] CBC MCH [ENTITIC MASS] BY AUTOMATED COUNT 30.8 pg 27.0 - 34.0 03/29 Specimen Type: BLOOD No comment entered. Ordering Provider: Nicanor KENNEDY Report Released Date/Time: Mar 29, 2025 08:53 AM Reporting Lab: [address] [phone] Performing Lab: [address] [address] [facility] CBC MCHC [MASS/VOLUME ] BY AUTOMATED COUNT 33.3 g/dL 33.0 - 36.0 03/29 Specimen Type: BLOOD No comment entered. Ordering Provider: Nicanor KENNEDY Report Released Date/Time: Mar 29, 2025 08:53 AM Reporting Lab: [address] [address] Performing Lab: [facility] [address] [facility] [phone] [facility] CBC PLATELETS [#/VOLUME] IN BLOOD BY AUTOMATED COUNT 223 10*3/u L 150 - 400 03/29 Specimen Type: BLOOD No comment entered. Ordering Provider: Nicanor KENNEDY Report Released Date/Time: Mar 29, 2025 08:53 AM Reporting Lab: [facility] [address] [place] [phone] Performing Lab: [address] [address] [facility] CBC PLATELET MEAN VOLUME [ENTITIC VOLUME] IN BLOOD BY AUTOMATED COUNT 10.6 fL 7.5 - 11.2 03/29 Specimen Type: BLOOD No comment entered. Ordering Provider: Nicanor KENNEDY Report Released Date/Time: Mar 29, 2025 08:53 AM Reporting Lab: [address] [address] Performing Lab: [address] [address] [facility] CBC ERYTHROCYTE DISTRIBUTION WIDTH [RATIO] BY AUTOMATED COUNT 12.0 11.8 - 15.1 03/29 Specimen Type: BLOOD No comment entered. Ordering Provider: Nicanor KENNEDY Report Released Date/Time: Mar 29, 2025 08:53 AM Reporting Lab: [address] [address] Performing Lab: [address] [address] [facility] CBC LYMPHOCYTES/ 100 LEUKOCYTES IN BLOOD BY AUTOMATED COUNT 37 03/29 Specimen Type: BLOOD No comment entered. Ordering Provider: Nicanor KENNEDY Report Released Date/Time: Mar 29, 2025 08:53 AM Reporting Lab: [facility] [address] [place] [phone] Performing Lab: [facility] [address] [place] [phone] [facility] CBC MONOCYTES/10 0 LEUKOCYTES IN BLOOD BY AUTOMATED COUNT 10 03/29 Specimen Type: BLOOD No comment entered. Ordering Provider: Nicanor KENNEDY Report Released Date/Time: Mar 29, 2025 08:53 AM Reporting Lab: [facility] [address] [facility] [phone] Performing Lab: [facility] [address] [place] [address] [phone] [facility] CBC NEUTROPHILS/ 100 LEUKOCYTES IN BLOOD BY AUTOMATED COUNT 48 03/29 Specimen Type: BLOOD No comment entered. Ordering Provider: Nicanor KENNEDY Report Released Date/Time: Mar 29, 2025 08:53 AM Reporting Lab: [facility] [address] [place], [place] [phone] Performing Lab: [facility] [address] [place], [place] [phone] [address] [facility] CBC EOSINOPHILS/ 100 LEUKOCYTES IN BLOOD BY AUTOMATED COUNT 4 03/29 Specimen Type: BLOOD No comment entered. Ordering Provider: Nicanor KENNEDY Report Released Date/Time: Mar 29, 2025 08:53 AM Reporting Lab: [facility] [address] [place] [phone] Performing Lab: [facility] [address] [place], [place] [phone] [address] [facility] CBC BASOPHILS/10 0 LEUKOCYTES IN BLOOD BY AUTOMATED COUNT 1 03/29 Specimen Type: BLOOD No comment entered. Ordering Provider: Nicanor KENNEDY Report Released Date/Time: Mar 29, 2025 08:53 AM Reporting Lab: [facility] [address] [facility] [phone] Performing Lab: [facility] [address] [place] [address] [facility] CBC LYMPHOCYTES [#/VOLUME] IN BLOOD BY AUTOMATED COUNT 1.99 10*3/u L 0.77 - 4.50 03/29 Specimen Type: BLOOD No comment entered. Ordering Provider: Nicanor KENNEDY Report Released Date/Time: Mar 29, 2025 08:53 AM Reporting Lab: [facility] [address] [place], [place] [phone] Performing Lab: [facility] [address] [place] [phone] [place] [address] [facility] CBC MONOCYTES [#/VOLUME] IN BLOOD BY AUTOMATED COUNT 0.52 10*3/u L 0.19 - 0.80 03/29 Specimen Type: BLOOD No comment entered. Ordering Provider: Nicanor KENNEDY Report Released Date/Time: Mar 29, 2025 08:53 AM Reporting Lab: [place] [id number] Performing Lab: [facility] [address] [place], [place] [phone] [address] [facility] CBC NEUTROPHILS [#/VOLUME] IN BLOOD BY AUTOMATED COUNT 2.62 10*3/u L 2.10 - 8.00 03/29 Specimen Type: BLOOD No comment entered. Ordering Provider: Nicanor KENNEDY Report Released Date/Time: Mar 29, 2025 08:53 AM Reporting Lab: [facility] [address] [place], [place] [phone] Performing Lab: [facility] [address] [place], [place] [phone] [address] [facility] CBC EOSINOPHILS [#/VOLUME] IN BLOOD BY AUTOMATED COUNT 0.23 10*3/u L 0.00 - 0.60 03/29 Specimen Type: BLOOD No comment entered. Ordering Provider: Nicanor KENNEDY Report Released Date/Time: Mar 29, 2025 08:53 AM Reporting Lab: [facility] [address] [place], [place] [phone] Performing Lab: [facility] [address] [place] [address] [phone] [facility] CBC BASOPHILS [#/VOLUME] IN BLOOD BY AUTOMATED COUNT 0.07 10*3/u L 0.00 - 0.20 03/29 Specimen Type: BLOOD No comment entered. Ordering Provider: Nicanor KENNEDY Report Released Date/Time: Mar 29, 2025 08:53 AM Reporting Lab: [facility] [address] [place] [phone] Performing Lab: [facility] [address] [place] [phone] [facility] VITAMIN D, 25-HYDROXY 25-HYDROXYVI TAMIN D3 [MASS/VOLUME ] IN SERUM OR PLASMA 37.6 ng/mL 30 - 96 03/29 Specimen Type: SERUM No comment entered. Ordering Provider: Nicanor KENNEDY Report Released Date/Time: Mar 29, 2025 08:53 AM Reporting Lab: [facility] [address] [place] [phone] Performing Lab: [facility] [address] [place], [place] [phone] [address] [facility] LIPID PANEL (STL) CHOLESTEROL [MASS/VOLUME ] IN SERUM OR PLASMA 199 mg/dL 0 - 200 03/29 Specimen Type: PLASMA Comment: No hemolysis noted. Ordering Provider: Nicanor KENNEDY Report Released Date/Time: Mar 29, 2025 08:53 AM Reporting Lab: [facility] [address] [place] [phone] Performing Lab: [facility] [address] [place] [phone] [facility] LIPID PANEL (STL) TRIGLYCERIDE [MASS/VOLUME ] IN SERUM OR PLASMA 196 mg/dL 0 - 150 03/29 H Specimen Type: PLASMA Comment: No hemolysis noted. Ordering Provider: Nicanor KENNEDY Report Released Date/Time: Mar 29, 2025 08:53 AM Reporting Lab: [facility] [address] [place] [phone] Performing Lab: [address] [address] [facility] LIPID PANEL (STL) CHOLESTEROL IN LDL [MASS/VOLUME ] IN SERUM OR PLASMA BY CALCULATION 119 mg/dL 03/29 Specimen Type: PLASMA Comment: No hemolysis noted. Ordering Provider: Nicanor KENNEDY Report Released Date/Time: Mar 29, 2025 08:53 AM Reporting Lab: [facility] [address] [place] [phone] Performing Lab: [facility] [address] [place] [phone] [facility] LIPID PANEL (STL) CHOLESTEROL IN HDL [MASS/VOLUME ] IN SERUM OR PLASMA 41 mg/dL 40 03/29 Specimen Type: PLASMA Comment: No hemolysis noted. Ordering Provider: Nicanor KENNEDY Report Released Date/Time: Mar 29, 2025 08:53 AM Reporting Lab: [address] [phone] Performing Lab: [address] [address] [facility] COMPREHENSI VE METABOLIC PANEL CREATININE [MASS/VOLUME ] IN SERUM OR PLASMA 0.94 mg/dL 0.7 - 1.3 03/29 Specimen Type: PLASMA Comment: No hemolysis noted. Ordering Provider: Nicanor KENNEDY Report Released Date/Time: Mar 29, 2025 08:53 AM Reporting Lab: [address] [address] Performing Lab: [facility] [address] [place] [phone] [facility] COMPREHENSI VE METABOLIC PANEL UREA NITROGEN [MASS/VOLUME ] IN SERUM OR PLASMA 16.7 mg/dL 9.0 - 25.0 03/29 Specimen Type: PLASMA Comment: No hemolysis noted. Ordering Provider: Nicanor KENNEDY Report Released Date/Time: Mar 29, 2025 08:53 AM Reporting Lab: [facility] [address] [place] [phone] Performing Lab: [address] [phone] [facility] COMPREHENSI VE METABOLIC PANEL GLUCOSE [MASS/VOLUME ] IN SERUM OR PLASMA 97 mg/dL 72 - 99 03/29 Specimen Type: PLASMA Comment: No hemolysis noted. Ordering Provider: Nicanor KENNEDY Report Released Date/Time: Mar 29, 2025 08:53 AM Reporting Lab: [facility] [address] [place], [place] [phone] Performing Lab: [facility] [address] [place] [phone] [facility] COMPREHENSI VE METABOLIC PANEL SODIUM [MOLES/VOLUM E] IN SERUM OR PLASMA 139 meq/L 136 - 145 03/29 Specimen Type: PLASMA Comment: No hemolysis noted. Ordering Provider: Nicanor KENNEDY Report Released Date/Time: Mar 29, 2025 08:53 AM Reporting Lab: [facility] [address] [place], [place] [phone] Performing Lab: [facility] [address] [place], [place] [phone] [address] [facility] COMPREHENSI VE METABOLIC PANEL POTASSIUM [MOLES/VOLUM E] IN SERUM OR PLASMA 4.0 meq/L 3.5 - 5 03/29 Specimen Type: PLASMA Comment: No hemolysis noted. Ordering Provider: Nicanor KENNEDY Report Released Date/Time: Mar 29, 2025 08:53 AM Reporting Lab: [facility] [address] [place] [phone] Performing Lab: [facility] DIVISION [address] [place] [phone] [facility] COMPREHENSI VE METABOLIC PANEL CHLORIDE [MOLES/VOLUM E] IN SERUM OR PLASMA 106 meq/L 98 - 107 03/29 Specimen Type: PLASMA Comment: No hemolysis noted. Ordering Provider: Nicanor KENNEDY Report Released Date/Time: Mar 29, 2025 08:53 AM Reporting Lab: [facility] [address] [place], [place] [phone] Performing Lab: [facility] [address] [place] [phone] [facility] COMPREHENSI VE METABOLIC PANEL CARBON DIOXIDE, TOTAL [MOLES/VOLUM E] IN SERUM OR PLASMA 24 meq/L 22 - 31 03/29 Specimen Type: PLASMA Comment: No hemolysis noted. Ordering Provider: Nicanor KENNEDY Report Released Date/Time: Mar 29, 2025 08:53 AM Reporting Lab: [facility] [address] [place], [place] [phone] Performing Lab: [facility] [address] [place] [phone] [facility] COMPREHENSI VE METABOLIC PANEL CALCIUM [MASS/VOLUME ] IN SERUM OR PLASMA 9.1 mg/dL 8.4 - 10.4 03/29 Specimen Type: PLASMA Comment: No hemolysis noted. Ordering Provider: Nicanor KENNEDY Report Released Date/Time: Mar 29, 2025 08:53 AM Reporting Lab: [place] [phone] Performing Lab: [place] [phone] [facility] COMPREHENSI VE METABOLIC PANEL PROTEIN [MASS/VOLUME ] IN SERUM OR PLASMA 7.2 g/dL 6 - 8.6 03/29 Specimen Type: PLASMA Comment: No hemolysis noted. Ordering Provider: Nicanor KENNEDY Report Released Date/Time: Mar 29, 2025 08:53 AM Reporting Lab: [facility] [address] [place], [place] [phone] Performing Lab: [address] [phone] [facility] COMPREHENSI VE METABOLIC PANEL ALBUMIN [MASS/VOLUME ] IN SERUM OR PLASMA 4.5 g/dL 3.4 - 5 03/29 Specimen Type: PLASMA Comment: No hemolysis noted. Ordering Provider: Nicanor KENNEDY Report Released Date/Time: Mar 29, 2025 08:53 AM Reporting Lab: [facility] [address] [place], [place] [address] Performing Lab: [address] [phone] [facility] COMPREHENSI VE METABOLIC PANEL BILIRUBIN.TO ANTONI [MASS/VOLUME ] IN SERUM OR PLASMA 0.3 mg/dL 0.2 - 1.2 03/29 Specimen Type: PLASMA Comment: No hemolysis noted. Ordering Provider: Nicanor KENNEDY Report Released Date/Time: Mar 29, 2025 08:53 AM Reporting Lab: [facility] [address] [place] [phone] Performing Lab: [facility] [address] [place] [phone] [facility] COMPREHENSI VE METABOLIC PANEL ALKALINE PHOSPHATASE [ENZYMATIC ACTIVITY/VOL UME] IN SERUM OR PLASMA 83 U/L 40 - 150 03/29 Specimen Type: PLASMA Comment: No hemolysis noted. Ordering Provider: Nicanor KENNEDY Report Released Date/Time: Mar 29, 2025 08:53 AM Reporting Lab: [facility] [address] [place] [phone] Performing Lab: [address] [phone] [place] [address] [facility]OC COMPREHENSI VE METABOLIC PANEL ASPARTATE AMINOTRANSFE RASE [ENZYMATIC ACTIVITY/VOL UME] IN SERUM OR PLASMA 31 U/L 5 - 34 03/29 Specimen Type: PLASMA Comment: No hemolysis noted. Ordering Provider: Nicanor KENNEDY Report Released Date/Time: Mar 29, 2025 08:53 AM Reporting Lab: [facility] [address] [place] [phone] Performing Lab: [facility] [address] [place] [phone] [facility] COMPREHENSI VE METABOLIC PANEL ALANINE AMINOTRANSFE RASE [ENZYMATIC ACTIVITY/VOL UME] IN SERUM OR PLASMA 26 U/L 8 - 40 03/29 Specimen Type: PLASMA Comment: No hemolysis noted. Ordering Provider: Nicanor KENNEDY Report Released Date/Time: Mar 29, 2025 08:53 AM Reporting Lab: [facility] [address] [place] [phone] Performing Lab: [facility] [address] [place] [phone] [facility] COMPREHENSI VE METABOLIC PANEL GLOMERULAR FILTRATION RATE/1.73 SQ M.PREDICTED [VOLUME RATE/AREA] IN SERUM, PLASMA OR BLOOD BY CREATININE-B ASED FORMULA (CKD-EPI 2020) 107.1 60 03/29 Specimen Type: PLASMA Comment: No hemolysis noted. Ordering Provider: Nicanor KENNEDY Report Released Date/Time: Mar 29, 2025 08:53 AM Reporting Lab: [address] [phone] Performing Lab: [address] [phone] [facility] LIPID PANEL (STL) CHOLESTEROL [MASS/VOLUME ] IN SERUM OR PLASMA 209 mg/dL 0 - 200 03/18 H Specimen Type: PLASMA Comment: No hemolysis noted. Ordering Provider: Nicanor KENNEDY Report Released Date/Time: Mar 18, 2024 10:55 AM Reporting Lab: [address] [address] Performing Lab: [address] [phone] [facility] LIPID PANEL (STL) TRIGLYCERIDE [MASS/VOLUME ] IN SERUM OR PLASMA 247 mg/dL 0 - 150 03/18 H Specimen Type: PLASMA Comment: No hemolysis noted. Ordering Provider: Nicanor KENNEDY Report Released Date/Time: Mar 18, 2024 10:55 AM Reporting Lab: [address] [phone] Performing Lab: [address] [phone] [facility] LIPID PANEL (STL) CHOLESTEROL IN LDL [MASS/VOLUME ] IN SERUM OR PLASMA BY CALCULATION 106 mg/dL 03/18 Specimen Type: PLASMA Comment: No hemolysis noted. Ordering Provider: Nicanor KENNEDY Report Released Date/Time: Mar 18, 2024 10:55 AM Reporting Lab: [address] [address] Performing Lab: [address] [phone] [facility] LIPID PANEL (STL) CHOLESTEROL IN HDL [MASS/VOLUME ] IN SERUM OR PLASMA 54 mg/dL 40 03/18 Specimen Type: PLASMA Comment: No hemolysis noted. Ordering Provider: Nicanor KENNEDY Report Released Date/Time: Mar 18, 2024 10:55 AM Reporting Lab: [address] [phone] Performing Lab: [address] [phone] [facility] COMPREHENSI VE METABOLIC PANEL CREATININE [MASS/VOLUME ] IN SERUM OR PLASMA 1.14 mg/dL 0.7 - 1.3 03/18 Specimen Type: PLASMA Comment: No hemolysis noted. Ordering Provider: Nicanor KENNEDY Report Released Date/Time: Mar 18, 2024 10:55 AM Reporting Lab: [address] [address] Performing Lab: [address] [phone] [facility] COMPREHENSI VE METABOLIC PANEL UREA NITROGEN [MASS/VOLUME ] IN SERUM OR PLASMA 16.6 mg/dL 9.0 - 25.0 03/18 Specimen Type: PLASMA Comment: No hemolysis noted. Ordering Provider: Nicanor KENNEDY Report Released Date/Time: Mar 18, 2024 10:55 AM Reporting Lab: [address] [address] Performing Lab: [address] [address] [facility] COMPREHENSI VE METABOLIC PANEL GLUCOSE [MASS/VOLUME ] IN SERUM OR PLASMA 108 mg/dL 72 - 99 03/18 H Specimen Type: PLASMA Comment: No hemolysis noted. Ordering Provider: Nicanor KENNEDY Report Released Date/Time: Mar 18, 2024 10:55 AM Reporting Lab: [address] [phone] Performing Lab: [address] [address] [facility] COMPREHENSI VE METABOLIC PANEL SODIUM [MOLES/VOLUM E] IN SERUM OR PLASMA 139 meq/L 136 - 145 03/18 Specimen Type: PLASMA Comment: No hemolysis noted. Ordering Provider: Nicanor KENNEDY Report Released Date/Time: Mar 18, 2024 10:55 AM Reporting Lab: [address] [phone] Performing Lab: [address] [address] [facility] COMPREHENSI VE METABOLIC PANEL POTASSIUM [MOLES/VOLUM E] IN SERUM OR PLASMA 4.9 meq/L 3.5 - 5 03/18 Specimen Type: PLASMA Comment: No hemolysis noted. Ordering Provider: Nicanor KENNEDY Report Released Date/Time: Mar 18, 2024 10:55 AM Reporting Lab: [address] [address] Performing Lab: [address] [address] [facility] COMPREHENSI VE METABOLIC PANEL CHLORIDE [MOLES/VOLUM E] IN SERUM OR PLASMA 106 meq/L 98 - 107 03/18 Specimen Type: PLASMA Comment: No hemolysis noted. Ordering Provider: Nicanor KENNEDY Report Released Date/Time: Mar 18, 2024 10:55 AM Reporting Lab: [address] [address] Performing Lab: [address] [phone] [facility] COMPREHENSI VE METABOLIC PANEL CARBON DIOXIDE, TOTAL [MOLES/VOLUM E] IN SERUM OR PLASMA 25 meq/L 22 - 31 03/18 Specimen Type: PLASMA Comment: No hemolysis noted. Ordering Provider: Nicanor KENNEDY Report Released Date/Time: Mar 18, 2024 10:55 AM Reporting Lab: [address] [address] Performing Lab: [facility] [address] [address] [facility] COMPREHENSI VE METABOLIC PANEL CALCIUM [MASS/VOLUME ] IN SERUM OR PLASMA 9.3 mg/dL 8.4 - 10.4 03/18 Specimen Type: PLASMA Comment: No hemolysis noted. Ordering Provider: Nicanor KENNEDY Report Released Date/Time: Mar 18, 2024 10:55 AM Reporting Lab: [address] [address] Performing Lab: [address] [address] [facility] COMPREHENSI VE METABOLIC PANEL PROTEIN [MASS/VOLUME ] IN SERUM OR PLASMA 6.9 g/dL 6 - 8.6 03/18 Specimen Type: PLASMA Comment: No hemolysis noted. Ordering Provider: Nicanor KENNEDY Report Released Date/Time: Mar 18, 2024 10:55 AM Reporting Lab: [address] [address] Performing Lab: [address] [address] [facility] COMPREHENSI VE METABOLIC PANEL ALBUMIN [MASS/VOLUME ] IN SERUM OR PLASMA 4.3 g/dL 3.4 - 5 03/18 Specimen Type: PLASMA Comment: No hemolysis noted. Ordering Provider: Nicanor KENNEDY Report Released Date/Time: Mar 18, 2024 10:55 AM Reporting Lab: [address] [address] Performing Lab: [address] [address] [facility] COMPREHENSI VE METABOLIC PANEL BILIRUBIN.TO ANTONI [MASS/VOLUME ] IN SERUM OR PLASMA 0.5 mg/dL 0.2 - 1.2 03/18 Specimen Type: PLASMA Comment: No hemolysis noted. Ordering Provider: Nicanor KENNEDY Report Released Date/Time: Mar 18, 2024 10:55 AM Reporting Lab: [address] [address] Performing Lab: [facility] [address] [place] [phone] [facility] COMPREHENSI VE METABOLIC PANEL ALKALINE PHOSPHATASE [ENZYMATIC ACTIVITY/VOL UME] IN SERUM OR PLASMA 73 U/L 40 - 150 03/18 Specimen Type: PLASMA Comment: No hemolysis noted. Ordering Provider: Nicanor KENNEDY Report Released Date/Time: Mar 18, 2024 10:55 AM Reporting Lab: [address] [phone] Performing Lab: [address] [address] [facility] COMPREHENSI VE METABOLIC PANEL ASPARTATE AMINOTRANSFE RASE [ENZYMATIC ACTIVITY/VOL UME] IN SERUM OR PLASMA 28 U/L 5 - 34 03/18 Specimen Type: PLASMA Comment: No hemolysis noted. Ordering Provider: Nicanor KENNEDY Report Released Date/Time: Mar 18, 2024 10:55 AM Reporting Lab: [address] [address] Performing Lab: [address] [address] [facility] COMPREHENSI VE METABOLIC PANEL ALANINE AMINOTRANSFE RASE [ENZYMATIC ACTIVITY/VOL UME] IN SERUM OR PLASMA 24 U/L 8 - 40 03/18 Specimen Type: PLASMA Comment: No hemolysis noted. Ordering Provider: Nicanor KENNEDY Report Released Date/Time: Mar 18, 2024 10:55 AM Reporting Lab: [facility] [address] [place] [phone] Performing Lab: [address] [address] [facility] COMPREHENSI VE METABOLIC PANEL GLOMERULAR FILTRATION RATE/1.73 SQ M.PREDICTED [VOLUME RATE/AREA] IN SERUM, PLASMA OR BLOOD BY CREATININE-B ASED FORMULA (CKD-EPI 2020) 85.5 60 03/18 Specimen Type: PLASMA Comment: No hemolysis noted. Ordering Provider: Nicanor KENNEDY Report Released Date/Time: Mar 18, 2024 10:55 AM Reporting Lab: [facility] [address] [place] [phone] Performing Lab: [facility] [address] [place] [phone] [place] [address] [facility]OC HGA1C HEMOGLOBIN A1C/HEMOGLOB IN.TOTAL IN BLOOD 5.5 4.0 - 6.0 03/18 Specimen Type: BLOOD No comment entered. Ordering Provider: Nicanor KENNEDY Report Released Date/Time: Mar 18, 2024 10:55 AM Reporting Lab: [facility] [address] [place] [address] Performing Lab: [address] [facility] TSH W/ REFLEX FT4 (STL) THYROTROPIN [UNITS/VOLUM E] IN SERUM OR PLASMA 0.605 u[IU]/ mL 0.47 - 5 03/18 Specimen Type: PLASMA No comment entered. Ordering Provider: Nicanor KENNEDY Report Released Date/Time: Mar 18, 2024 10:55 AM Reporting Lab: [place] [id number] Performing Lab: [address] [facility] Vital Signs Combined list of inpatient and outpatient Vital Signs from Department of Defense and Veterans Affairs, ranging from 12 months to all on record, depending upon the facility. Vital Sign Value Date Comments Source SYSTOLIC BLOOD PRESSURE 120 03/29/2025 08:34:07 [facility] DIASTOLIC BLOOD PRESSURE 83 03/29/2025 08:34:07 [facility] PULSE OXIMETRY 97 % 03/29/2025 08:34:07 [facility] WEIGHT 175.7 03/29/2025 08:34:07 [facility] BMI 22 kg/m2 03/29/2025 08:34:07 [facility] PAIN 0 03/29/2025 08:34:07 [facility] HEIGHT 74.5 03/29/2025 08:34:07 [facility] TEMPERATURE 97.6 03/29/2025 08:34:07 [facility] PULSE 78 03/29/2025 08:34:07 [facility] RESPIRATION 18 03/29/2025 08:34:07 [facility] Encounters Combined list of: 1) Encounters from Department of Veterans Affairs facilities going backup to the last 18 months, not all VA inpatient encounters are included; 2) Encounters from the Department of [facility] facilities going backup to 280 months. Location Location Details Encounter Type Encounter Number Reason For Visit Attending Provider ADM Date DC Date Status Disposition Source [facility]( art Team 1007) OUTPATIENT [id number] HARVEY BAPTISTE 07/08 Released with Work/Duty Limitations [facility] Fed [facility] [place]( Smart Team 1007) [facility]( art Team 1007) OUTPATIENT [id number] lft knee pain MIKE FORD 07/22 Released with Work/Duty Limitations [facility] [place]( Smart Team 1007) [facility] [place](Ne litary Sick Call [facility] 237) OUTPATIENT [id number] L knee BEN BARNETT 08/26 Released with Work/Duty Limitations [facility] [place]) [facility] [place](Ne litary Sick Call [facility] 237) OUTPATIENT [id number] left knee AARTI STOVER 09/15 Released w/o Limitations [facility] 237) [facility] [place](Ne litary Sick Call [facility] 237) OUTPATIENT [id number] pt c/o N/V. GUSTAVO SAMAYOA 09/16 Sick at Home/Quarter s [facility] [place] 237) [facility] [place](Ne litary Sick Call [facility] 237) OUTPATIENT [id number] f/u streap throat PRAMOD ARAUJO 10/03 Released w/o Limitations [facility] [place]( [facility] 237) [facility](Ne litary Sick Call [place] [address]) OUTPATIENT [id number] pt c/o left knee pain since bootcam p. AARTI STOVER 10/10 Released with Work/Duty Limitations [facility] [place]( [facility] 237) [facility] [place](Ne litary Sick Call [place] [address]) OUTPATIENT [id number] knee f/u AARTI STOVER 10/20 Released with Work/Duty Limitations [facility]( [facility] 237) [facility] [place](Ne litary Sick Call [place] [address]) OUTPATIENT [id number] eval for ffd GUSTAVO SAMAYOA 10/24 Released with Work/Duty Limitations [facility] [place] [facility] [place]( [facility] Sick Call [facility] 237) [facility] [place] [place] [address]) OUTPATIENT [id number] sore throat AARTI STOVER 10/29 Sick at Home/Quarter s [facility] Fed [facility] [place]( [facility] 237) [facility] [place] [place] [address]) OUTPATIENT [id number] f/u strep AARTI STOVER 10/30 Released w/o Limitations [facility] [place] [facility]( [facility] 237) [facility] [place] [place] [address]) OUTPATIENT [id number] f/u L knee AARTI STOVER 11/18 Released w/o Limitations [facility] [place] [facility]( [facility] 237) [facility] [place](Ph ysical Therapy/2 37) OUTPATIENT [id number] BRET V[place]A 11/21 Released with Work/Duty Limitations [facility]( Physica l Therapy /237) [facility] [place] OUTPATIENT [id number] GUSTAVO THOMPSON 03/19 Released w/o Limitations [facility] [place]( [facility]) [facility] [place]([facility]) OUTPATIENT [id number] RLW RITCHIE YOUNG Son 03/19 Released w/o Limitations [facility] [place]( [place] [facility]) [facility] [place]( [facility]) OUTPATIENT [id number] KOMAL SYED Son 03/19 Released w/o Limitations [facility] [place]( [place] [facility]) [facility] [place]( [facility] Undersea [facility]) OUTPATIENT [id number] SUB PHYS TAMIA DRUMMOND 03/31 Released w/o Limitations [facility] [place]( [place] [facility]) [facility] [place]( oton Immunizat ion) OUTPATIENT [id number] Immuniz ations SAM PIRES E 04/08 Released w/o Limitations [facility] [place]( [place] [facility]) [facility] [place]( [facility]) OUTPATIENT [id number] SUB DUTY PE SIMON EDMONDSON 05/01 Released with Work/Duty Limitations [facility] [place]( [place] [facility] [place]( [facility]) OUTPATIENT [id number] mental health clearan ce SIMON EDMONDSON 07/14 Released with Work/Duty Limitations [facility] [place]( [place] [facility]) [facility] [place]( [facility]) OUTPATIENT [id number] R Hand injury LIZETH JENKINS Ryan 07/17 Released with Work/Duty Limitations [facility] [place]( [place] [facility]) [facility](Immuniz ations [facility]) OUTPATIENT [id number] ppd/flu mist PASQUALE PLASCENCIA 08/28 Released w/o Limitations [facility](Imm unizati ons [facility] ) [facility](Immuniz ations [facility]) OUTPATIENT [id number] ppd read JAZZ DAVIS 08/31 Released w/o Limitations [facility](Imm unizati ons [facility] ) [facility] ER, DIRECT TO [facility] [id number] ANA HANLEY 01/15 RETURNED TO DUTY [facility](Nutriti on [facility]) INPATIENT [id number] CHIDI Sterling 01/19 Inpatient- Still a Patient [facility](Nut rition [facility]) [facility](Nutriti on [facility]) INPATIENT [id number] TF f/u CHIDI ROBERT F 01/24 Inpatient- Still a Patient [facility](Nut rition [facility]) [facility](Infecti ous Disease [facility]) INPATIENT [id number] TETO GARCÍA 01/26 Inpatient- Still a Patient [facility](Inf ectious Disease [facility]) [facility](Nutriti on [facility]) INPATIENT [id number] TF f/u CHIDI ROBERT F 01/27 Inpatient- Still a Patient [facility](Nut rition [facility]) [facility](Infecti ous Disease [facility]) INPATIENT [id number] ELIEL TANG 01/27 Inpatient- Still a Patient [facility](Inf ectious Disease [facility]) [facility](Cardiol ogy [facility]) INPATIENT [id number] LUZMARIA Gaming 01/28 Inpatient- Still a Patient [facility](Car diology [facility]) [facility](Social Work [facility]) INPATIENT [id number] Psycho- social assessm HECTOR Johnson 02/03 Inpatient- Still a Patient [facility](Soc ial Work [facility]) [facility](Speech Pathology [facility]) INPATIENT [id number] Evaluat e for Ki smith Valve ODALIS RODRIGUEZ 02/07 Inpatient- Still a Patient [facility](Spe ech Patholo gy [facility]) [facility](Speech Pathology [facility]) INPATIENT [id number] ODALIS EDGE 02/08 Inpatient- Still a Patient [facility](Spe ech Patholo gy [facility]) [facility] [place] [facility](Speech Pathology [facility]) INPATIENT [id number] ODALIS RODRIGUEZ H 02/09 Inpatient- Still a Patient [facility](Spe ech Patholo gy [facility]) [facility] [place] [facility](Speech Pathology [facility]) INPATIENT [id number] ODALIS RODRIGUEZ H 02/10 Inpatient- Still a Patient [facility](Spe ech Patholo gy [facility]) [facility] [place] [facility](Occ Therapy [facility]) INPATIENT [id number] [facility] JAZZ CARTER. 02/10 Inpatient- Still a Patient [facility](Occ Therapy [facility]) [facility] INPATIENT [id number] [facility] JAZZ CARTER. 02/14 Inpatient- Still a Patient [facility](Occ Therapy [facility]) [facility] INPATIENT [id number] [facility] JAZZ CARTER. 02/14 Inpatient- Still a Patient [facility](Occ Therapy [facility] INPATIENT [id number] YOLANDA CEDEÑO A 02/15 Inpatient- Still a Patient [facility](Nut rition [facility]) [facility] INPATIENT [id number] [facility] JAZZ Moe. 02/16 Inpatient- Still a Patient [facility](Occ Therapy [facility]) [facility](Speech Pathology [facility]) INPATIENT [id number] Re assess Swallow functio n ODALIS RODRIGUEZ H 02/16 Inpatient- Still a Patient [facility] [place](Spe ech Patholo gy [facility]) [facility] [place] [facility](Occ Therapy [facility]) INPATIENT [id number] [facility] JAZZ CARTER. 02/16 Inpatient- Still a Patient [facility] [place](Occ Therapy [facility]) [facility] [place] [facility](Speech Pathology [facility]) INPATIENT [id number] ODALIS RODRIGUEZ H 02/16 Inpatient- Still a Patient [facility] [place] [facility](Spe ech Patholo gy [facility]) [facility] [place] [facility](Speech Pathology [facility]) INPATIENT [id number] Dysphag ia tx ODALIS RODRIGUEZ H 02/17 Inpatient- Custodial Facility [facility] [place](Spe ech Patholo gy [facility]) [facility] [place] [facility](Case Managemen [facility] [place] [facility]) OUTPATIENT [id number] CASE MANAGEM ENT IVANNA CORTÉS S 03/08 Released w/o Limitations [facility] [place]Dajuan e Managem ent [facility]) [facility] [place] [facility] Man[facility]emen [facility] [place] [facility]) OUTPATIENT [id number] CASE MANAGEM ENT LYDIA CORTÉSA S 03/09 Released w/o Limitations [facility] [place] [facility]agem ent [facility] [place] [place](Case Mgmt Active Duty (AD)) OUTPATIENT [id number] CASE MANAGEM ENT LYDIA CORTÉSA S 03/10 Released w/o Limitations [facility] [place] [facility]([place]uan e Mgmt Active Duty (AD)) [facility] [place] [facility](Case Mgmt Active Duty (AD)) OUTPATIENT [id number] IVANNA CORTÉS S 03/14 Released w/o Limitations [facility] [place] [facility](Dajuan e Mgmt Active Duty (AD)) [facility] [place] [facility](Case Mgmt Active Duty (AD)) OUTPATIENT [id number] CASE MANAGEM ENT LYDIA CORTÉSA S 03/15 Released w/o Limitations [facility] [place] [facility](Dajuan e Mgmt Active Duty (AD)) [facility] [place]([facility] Managemen [facility] [place] [facility]) OUTPATIENT [id number] CASE MANAGEM ENT LYDIA CORTÉSA S 03/17 Released w/o Limitations [facility] [place]([facility] [place] [facility]) [facility] [place] [facility](Case Mgmt Active Duty (AD)) OUTPATIENT [id number] CASE MANAGEM ENT LYDIA CORTÉSA S 03/18 Released w/o Limitations [facility] [place] [facility](Dajuan e Mgmt Active Duty (AD)) [facility] [place](Neurosu rgery NMCP) OUTPATIENT [id number] preangi o for 14/dc from [facility]/co n leave ANA HANLEY 03/25 Released w/o Limitations [facility](William rosurge ry NMCP) [facility] [place]([facility]) OUTPATIENT [id number] bump under R armpit x 3 days MARYLU HODGES 04/05 Released w/o Limitations [facility] ) [facility] [place] DIRECT TO INF FROM OTHER THAN ER OR [facility] [id number] EDUIN TORRES 04/11 [employer] [facility] [place] [facility](Neurosu rgery NMCP) OUTPATIENT [id number] f/u after angiogr am 04/11 ANA HANLEY 04/14 Released w/o Limitations [facility](William rosurge ry NMCP) [facility] [place] ADMISSION RESULTING FROM [facility], DIRECT TO MTF [id number] A[facility]AN[facility] 04[facility] TELE CONSULT [id number] please call pt post surgery . Dr.Cobe brown, perform ed surgery 2 weeks ago. CHELSEA NEAL 05/06 [facility](William rosurge ry NMCP) [facility] [place] (Case Managemen t [facility]) OUTPATIENT [id number] Case Managem ent IVANNA CORTÉS 05/06 Released w/o Limitations [facility](Dajuan e Managem ent [facility]) [facility] TELE CONSULT [id number] pt would like for you to call him back, did not give details as to why. CHELSEA NEAL 05/23 [facility](William rosurge ry NMCP) [facility] [place](Neurosu rgery NMCP) OUTPATIENT [id number] 1st post op f/u; no xrays ANA HANLEY 05/31 Released w/o Limitations [facility](William rosurge ry NMCP) [facility] [place](Neurosu rgery NMCP) TELE CONSULT [id number] QUESTIO N FOR CHELSEA PHAN 06/22 [facility] [place] [facility](William rosurge ry NMCP) [facility] [place] [facility]) OUTPATIENT [id number] c/o hang nail ingrown on lt foot 3 wks HIGHANUJ 06/28 Released w/o Limitations [facility] [place] [facility] ) [facility] [place] [facility](Neurosu rgery NMCP) TELE CONSULT [id number] [facility] CHELSEA NEAL 07/22 [facility] [place] [facility](William rosurge ry NMCP) [facility] [place] [facility](Neurosu rgery NMCP) TELE CONSULT [id number] Michelaio n CHELSEA NEAL 08/03 [facility] [place] [facility](William rosurge ry NMCP) [facility] [place] [facility](Case Mgmt Active Duty (AD)) OUTPATIENT [id number] Case Managem ent IVANNA CORTÉS S 08/16 Released w/o Limitations [facility] [place] [facility](Dajuan e Mgmt Active Duty (AD)) [facility] [place] [facility](Case Mgmt Active Duty (AD)) OUTPATIENT [id number] Case Managem ent IVANNA CORTÉS S 08/17 Released w/o Limitations [facility] [place] [facility](Dajuan e Mgmt Active Duty (AD)) [facility] [place] [facility](Case Mgmt Active Duty (AD)) OUTPATIENT [id number] Case Managem ent IVANNA CORTÉS S 08/18 Released w/o Limitations [facility] [place] [facility](Dajuan e Mgmt Active Duty (AD)) [facility] [place] [facility](Case Mgmt Active Duty (AD)) OUTPATIENT [id number] Case Managem ent IVANNA CORTÉS S 08/19 Released w/o Limitations [facility] [place] [facility](Dajuan e Mgmt Active Duty (AD)) [facility] [place] [facility]) OUTPATIENT [id number] poss strep throat 2 days. TAMIA BALTAZAR 08/26 [facility]ased w/o Limitations [facility] [place] [facility] ) [facility] [place] [facility]) OUTPATIENT [id number] sore throat, weaknes s x 8 days; already seen but not better DAKOTA MCCORMICK 09/01 Released w/o Limitations [facility] ) [facility] [place](Hearing Cons [employer]) OUTPATIENT [id number] PAL MCLEOD 09/05 [facility]ased w/o Limitations [facility] [place] [facility](Hea ring Cons [facility]) [facility] [place](Immuniz ations [facility]) OUTPATIENT [id number] ppd/flu mist KAREEN ARMENDARIZ 09/05 Released w/o Limitations [facility](Imm unizati ons [facility] ) [facility] [place] [facility](Case Mgmt Active Duty (AD)) OUTPATIENT [id number] Case Managem ent IVANNA CORTÉS S 09/05 Released w/o Limitations [facility] [place] [facility](Dajuan e Mgmt Active Duty (AD)) [facility] [place](Immuniz ations [facility]) OUTPATIENT [id number] ppd check JESSICA SOSA 09/07 Released w/o Limitations [facility](Imm unizati ons [facility] ) [facility] [place](Neurosu rgery NMCP) OUTPATIENT [id number] f/u EDUIN TORRES 10/04 Released with Work/Duty Limitations [facility] [place] [facility](William rosurge ry NMCP) [facility] [place] [facility] [place] OUTPATIENT [id number] part 2 SIERRA DE LA ROSA 10/06 Released w/o Limitations [facility] [place] [place] [facility](Neurosu rgery NMCP) TELE CONSULT [id number] CHELSEA FREDERICK 10/20 [facility] [place] [facility](William rosurge ry NMCP) [facility] [place] [facility](Case Mgmt Active Duty (AD)) OUTPATIENT [id number] Case Managem ent IVANNA CORTÉS 10/26 [facility]ased w/o Limitations [facility] [place] [facility](Dajuan e Mgmt Active Duty (AD)) [facility]) OUTPATIENT [id number] AV JOHN_TA _MEREDITH BUCKNER 10/26 Released w/o Limitations [facility](Occ Therapy NMCP) [facility] [place](Occ Therapy NMCP) OUTPATIENT [id number] LILI MONTES 10/31 Released w/o Limitations [facility] OUTPATIENT [id number] PAULO CORTÉS 11/02 Released w/o Limitations [facility]) [facility] [place](Neurosu rgery NMCP) TELE CONSULT [id number] Emmett CHAMBERLAINESCHELSEA 11/04 [facility](William rosurge ry NMCP) [facility] [place](Occ Therapy NMCP) OUTPATIENT [id number] PAULO CORTÉS 11/07 Released w/o Limitations [facility](Occ Therapy NMCP) [facility] OUTPATIENT [id number] LLII MONTES 11/09 Released w/o Limitations [facility](Occ Therapy NMCP) [facility] OUTPATIENT [id number] EDUIN TORRES 11/10 Released with Work/Duty Limitations [facility](William rosurge ry NMCP) [facility] [place] ([facility]) OUTPATIENT [id number] Headach es since Sep 2008 DENISE BUSH 11/16 Released w/o Limitations [facility] ) [facility] [place](Neurosu rgery NMCP) TELE CONSULT [id number] dr torres patient . HAN SHAH Radha 11/16 [facility](William rosurge ry NMCP) [facility] [place](Occ Therapy NMCP) OUTPATIENT [id number] LILI MONTES 11/17 Released w/o Limitations [facility](Occ Therapy NMCP) [facility] [place] [facility](Neurosu rgery NMCP) TELE CONSULT [id number] pt status post brain hemmora ge now having difficu lt painful swallow ing. HAN SHAH Radha 11/21 [facility](William rosurge ry NMCP) [facility] [place](Occ Therapy NMCP) OUTPATIENT [id number] LILI MONTES 11/21 Released w/o Limitations [facility](Occ Therapy NMCP) [facility] [place](Case Mgmt Active Duty (AD)) OUTPATIENT [id number] Case Managem ent IVANNA CORTÉS S 11/23 Released w/o Limitations [facility](Dajuan e Mgmt Active Duty (AD)) [facility]) OUTPATIENT [id number] PAULO CORTÉS 11/23 Released w/o Limitations [facility](Occ Therapy NMCP) [facility] OUTPATIENT [id number] H/A since Sep ZAINAB SHETH 11/24 Released w/o Limitations [facility] [place](Occ Therapy NMCP) OUTPATIENT [id number] MEREDITH ABDULLAHI 11/25 Released w/o Limitations [facility](Occ Therapy NMCP) [facility] [place] (Case Mgmt Active Duty (AD)) OUTPATIENT [id number] Case Managem ent IVANNA CORTÉS S 12/26 Released w/o Limitations [facility](Dajuan e Mgmt Active Duty (AD)) [facility](Neurosu rgery NMCP) TELE CONSULT [id number] Hi patient CHELSEA NEAL 01/19 [facility](William rosurge ry NMCP[facility] [place](Case Mgmt Active Duty (AD)) OUTPATIENT [id number] Case Managem ent IVANNA CORTÉS S 01/23 Released w/o Limitations [facility](Dajuan e Mgmt Active Duty (AD)) [facility] [place] [facility](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[employer]) OUTPATIENT [id number] 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 LATONYA MARADIAGA 02/02 Released w/o Limitations [facility] [place]Phy [facility] [employer] ) [facility] [place](Manager Financial Planning Aquatic Team NMCP) OUTPATIENT [id number] RENEE GREENWOOD 02/16 Released w/o Limitations [facility] [place](Phy s Ther Aquatic Team NMCP) [facility] [place]([employer]) OUTPATIENT [id number] HARVEY KONG 02/24 Released w/o Limitations [facility] [place]hy [facility] [employer] ) [facility] [place](Case Mgmt Active Duty (AD)) OUTPATIENT [id number] Case IVANNA Dobbs S 02/24 Released w/o Limitations [facility] [place](Dajuan e Mgmt Active Duty (AD)) [facility] [place]([employer]) OUTPATIENT [id number] NORAH JIMENEZ V 02/28 Released w/o Limitations [facility] [place] [employer] ) [facility] [place]([employer]) OUTPATIENT [id number] HARVEY KONG 03/01 Released w/o Limitations [facility] [place] [employer] ) [facility] [place](Case Mgmt Active Duty (AD)) OUTPATIENT [id number] Case IVANNA Dobbs S 03/03 Released w/o Limitations [facility] [place](Dajuan e Mgmt Active Duty (AD)) [facility] [place]([employer]) OUTPATIENT [id number] HARVEY KONG 03/06 Released w/o Limitations [facility] [place] [facility](Phy [facility] [employer] ) [facility] [place]([employer]) OUTPATIENT [id number] HARVEY KONG 03/13 Released w/o Limitations [facility] [place] [facility](Phy [facility] [employer] ) [facility] [place]([employer]) OUTPATIENT [id number] NORAH JIMENEZ V 03/14 [facility]ased w/o Limitations [facility] [place] [facility] [employer] ) [facility] [place] [facility]([employer]) OUTPATIENT [id number] HARVEY KONG 03/15 Released w/o Limitations [facility] [place] [facility] [employer] ) [facility] [place] [facility]([employer]) OUTPATIENT [id number] TONY NORAH V 03/21 Released w/o Limitations [facility] [place] [facility] [employer] ) [facility] [place] [facility]([employer]) OUTPATIENT [id number] HARVEY KONG 03/27 Released w/o Limitations [facility] [place] [facility] [employer] ) [facility] [place] [facility]([employer]) OUTPATIENT [id number] ELVIA JEFFERS 04/12 Released w/o Limitations [facility] [place] [facility] [employer] ) [facility] [place] [facility]([employer]) OUTPATIENT [id number] ELVIA JEFFERS 04/14 Released w/o Limitations [facility] [place] [facility] [employer] ) [facility] [place] [facility](Case Mgmt Active Duty (AD)) OUTPATIENT [id number] Case Managem ent IVANNA CORTÉS S 04/17 Released w/o Limitations [facility] [place] [facility](Dajuan e Mgmt Active Duty (AD)) [facility] [place] [facility](Neurosu rgery NMCP) TELE CONSULT [id number] pt has shashank boucher medical board HAN SHAH 05/22 [facility] [place] [facility](William rosurge ry NMCP) [facility] [place] [facility](Neurosu rgery NMCP) OUTPATIENT [id number] f/u for med boards ANA HANLEY 05/24 Released w/o Limitations [facility] [place] [facility](William rosurge ry NMCP) [facility] [place] [facility](Case Mgmt Active Duty (AD)) OUTPATIENT [id number] Case Managem ent IVANNA CORTÉS S 05/29 Released w/o Limitations [facility] [place] [facility](Dajuan e Mgmt Active Duty (AD)) [facility] [place] [facility](Phys Exam [place] [facility]) OUTPATIENT [id number] peb CHRIS CHONG S 06/01 Released w/o Limitations [facility](Phy s Exam [place]) [facility](Hearing Cons [employer]) OUTPATIENT [id number] SIDNEY DICKERSON L 06/01 Released w/o Limitations [facility](Hea ring Cons [place] [employer]) [facility](Mil [facility]) OUTPATIENT [id number] sore throat x 4 days SERINAMEREDITH JO W 06/16 Sick at Home/Quarter s [facility] ) [facility](Neurosu rgery NMCP) TELE CONSULT [id number] prabhakar fontenot. would like to discuss med board. info cnt#[id number] [phone] CHELSEA NEAL 06/23 [facility](William rosurge ry NMCP) [facility](Case Mgmt Active Duty (AD)) OUTPATIENT [id number] Case Managem ent IVANNA CORTÉS S 08/01 Released w/o Limitations [facility](Dajuan e Mgmt Active Duty (AD)) [facility]) OUTPATIENT [id number] RIGHT WRIST PAIN ZAINAB SHETH T 08/02 Released w/o Limitations [facility] ) [facility](Optomet ry [employer]) OUTPATIENT [id number] eye exam DOROTHY SUH NMN 08/04 Released w/o Limitations [facility](Opt ometry [place]) [facility](Immuniz ation NMCP) OUTPATIENT [id number] Adult Imms - Flumist LISA PRASAD N P 08/17 Released w/o Limitations [facility](Imm unizati on NMCP) [facility](Neurosu rgery NMCP) TELE CONSULT [id number] Dr.Cobe brown pt. Mrs. Harvey rubio of Med Boards request ing consult for ptCHELSEA ARANDA 08/28 [facility](William rosurge ry NMCP) [facility](Neurosu rgery NMCP) TELE CONSULT [id number] PEB request PT CASEHAN 09/04 [facility](William rosurge ry NMCP) [facility](Manager Financial Planning [place]) OUTPATIENT [id number] TAMIA CARMONA 09/05 Released w/o Limitations [facility](Phy s Ther [place]) [facility](Occ Therapy NMCP) OUTPATIENT [id number] AVM altoned PAL NIEVES 09/12 Released w/o Limitations [facility](Occ Therapy NMCP) [facility](Case Mgmt Active Duty (AD)) OUTPATIENT [id number] Case Managem ent IVANNA CORTÉS 09/21 Released w/o Limitations [facility](Dajuan e Mgmt Active Duty (AD)) [facility] [place]) OUTPATIENT [id number] UPDATE LIMITED PROFILE FOR ZAINAB JACOME 11/01 Released w/o Limitations [facility] [place] ) [facility](Immuniz ations [facility]) OUTPATIENT [id number] VACCINE S WILTON SILVA 11/15 Released w/o Limitations [facility](Imm unizati ons [facility] ) [facility](Immuniz ations [facility]) OUTPATIENT [id number] vaccine JESSICA SOSA 11/21 Released w/o Limitations [facility](Imm unizati ons [facility] ) [facility]([place]verse[place] s Screening [place]) OUTPATIENT [id number] MEDICAL ASSIGNM ENT SCREEN (STANDB Y) KERRI TREJO 11/24 Released w/o Limitations [facility](Ove rseas Screeni ng [place] ) [facility](Mil AC [facility]) OUTPATIENT [id number] Pain in tonsils /throat , hot flashes IRENE FERGUSON Son 11/28 Released w/o Limitations [facility] ) [facility](Neurosu rgery NMCP) TELE CONSULT [id number] pt's CO would like to speak with Dr Hanley [id number] CHELSEA NEAL 11/30 [facility](William rosurge ry NMCP) [facility](Neurosu rgery NMCP) OUTPATIENT [id number] f/u ANA HANLEY 12/01 Released w/o Limitations [facility](William rosurge ry NMCP) [facility] [place]) OUTPATIENT [id number] R MAGAÑA PAIN ZAINAB SHETH 12/05 Released w/o Limitations [facility] ) [facility](Case Mgmt Active Duty (AD)) OUTPATIENT [id number] Case Managem ent IVANNA CORTÉS 12/15 Released w/o Limitations [facility](Dajuan e Mgmt Active Duty (AD)) [facility](Immuniz ations [facility]) OUTPATIENT [id number] vaccine CIERA FOREMAN 01/09 Released w/o Limitations [facility](Imm unizati ons [facility] ) [facility]) OUTPATIENT [id number] Chest Pain EMMA WHALEY 01/17 Released w/o Limitations [facility] ) [facility]) OUTPATIENT [id number] Injured right foot during PT x 5 days AYAD JEAN 02/21 Released w/o Limitations [facility] ) [facility] OUTPATIENT [id number] f/u xray results ZAINAB SHETH 03/06 Released w/o Limitations [facility] [place] [facility](Neurosu rgery NMCP) TELE CONSULT [id number] Dr Hanley Pt . needs form stating he can fly. Pt [place] on 7[place]6 GLADIS NEALZac Stockton 03/26 [facility](William rosurge ry NMCP) [facility]) OUTPATIENT [id number] sore throat EMMA WHALEY 03/28 Released w/o Limitations [facility] ) [facility]) OUTPATIENT [id number] seen yesterd ay for sorethr oat today throat is worse BRENT HARRISON 03/29 Released w/o Limitations [facility] ) [facility](Immuniz ations [facility]) OUTPATIENT [id number] vaccine JAZZ DAVIS 05/09 Released w/o Limitations [facility](Imm unizati ons [facility] ) [facility] [place]) OUTPATIENT [id number] R FOOT EVALUAT ION ZAINAB SHETH 05/15 Released w/o Limitations [facility] [place] ) [facility](Immuniz ations [facility]) OUTPATIENT [id number] vaccine KAREEN ARMENDARIZ 05/21 Released w/o Limitations [facility](Imm unizati ons [facility] ) [facility](Phys Exam [place]) OUTPATIENT [id number] SEPARAT ION HOA L 523001 CHRIS CHONG 05/22 Released w/o Limitations [facility](Phy s Exam [place]) [facility](Neurosu rgery NMCP) TELE CONSULT [id number] Pt c/o of more frequen t paralys is, since surgery . 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 CASEHAN 08/01 [facility](William rosurge ry NMCP) 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, site unspeci luisale HARI CALLEJAS 12/29 [facility] Outpatient Encounter [id number] 03/16 [facility] Outpatient Encounter [id number] CHRISTINE SALDIVAR 03/18 [facility] OFFICE O/P EST LOW 20 MIN [id number] Diagnos is: ICD-10- CM Z00.00 Encntr for general adult medical exam w/o abnorma l finding s Nicanor KENNEDY L 03/18 [facility] Outpatient Encounter [id number] 04/07 [facility] Outpatient Encounter [id number] 07/13 [facility] Outpatient Encounter [id number] 09/09 [facility] Outpatient Encounter [id number] CARLA DOOLEY 03/16 [facility] OFFICE O/P EST LOW 20 MIN [id number] Diagnos is: ICD-10- CM Z00.00 Encntr for general adult medical exam w/o abnorma l finding s BRENT,Nicanor FAM L 03/29 [facility] Procedures Combined list of: 1) Procedures from Department of Veterans Affairs facilities going back up to thelast 18 months, not all VA non-surgical procedures are included; 2) All procedures from the Department of Defense facilities. Procedure Procedure Type Code Date Perfomer Comments Sourc e INDIVIDUAL PSYCHOTHERAPY, INSIGHT ORIENTED, BEHAVIOR MODIFYING AND/OR SUPPORTIVE, IN AN OFFICE OR OUTPATIENT FACILITY, APPROXIMATELY 20 TO 30 MINUTES SAWY-AK-NALL WITH THE PATIENT 2006 [facility] PSYCHIATRIC DIAGNOSTIC INTERVIEW EXAMINATION 2006 [facility] IMMUNIZATION ADMINISTRATION (INCLUDES PERCUTANEOUS, INTRADERMAL, SUBCUTANEOUS, OR INTRAMUSCULAR INJECTIONS); 1 VACCINE (SINGLE OR COMBINATION VACCINE/TOXOID) 2006 [facility] PURE TONE AUDIOMETRY (THRESHOLD); AIR ONLY 2006 [facility] DETERMINATION OF REFRACTIVE STATE 2006 [facility] THERAPEUTIC PROCEDURE, 1 OR MORE AREAS, EACH 15 MINUTES; THERAPEUTIC EXERCISES TO DEVELOP STRENGTH AND ENDURANCE, RANGE OF MOTION AND FLEXIBILITY 2006 [facility] BUPRENORPHINE IMPLANT, 74.2 MG 2006 [facility] INDIVIDUAL PSYCHOTHERAPY, INSIGHT ORIENTED, BEHAVIOR MODIFYING AND/OR SUPPORTIVE, IN AN OFFICE OR OUTPATIENT FACILITY, APPROXIMATELY 20 TO 30 MINUTES KHNA-RO-ATAJ WITH THE PATIENT 2006 [facility] PSYCHOLOGICAL TSTING (INCL PSYCHODIAG ASSESSMNT, EMOTITY, INTELLECTUAL ABILITIES, PERSONALITY &PSYCHOPATHOLOGY, EG, MMPI), ADMINISTERED COMPUTER, W QUALIFIED HEALTH CARE TECHNICIAN INTERPRET &RPT 2006 [facility] PSYCHIATRIC DIAGNOSTIC INTERVIEW EXAMINATION 2006 [facility] THERAPEUTIC PROCEDURE, 1 OR MORE AREAS, EACH 15 MINUTES; THERAPEUTIC EXERCISES TO DEVELOP STRENGTH AND ENDURANCE, RANGE OF MOTION AND FLEXIBILITY 2005 [facility] ORAL THERMOMETER, REUSABLE, ANY TYPE, EACH 2005 [facility] TYPHOID VACCINE, CAPSULAR POLYSACCHARIDE (VICPS), FOR INTRAMUSCULAR USE 2005 [facility] BUPRENORPHINE IMPLANT, 74.2 MG 2005 [facility] SCREENING TEST OF VISUAL ACUITY, QUANTITATIVE, BILATERAL 2005 [facility] AUDIOMETRIC TESTING OF GROUPS 2005 [facility] SKIN TEST; TUBERCULOSIS, INTRADERMAL 2005 [facility] SKIN TEST; TUBERCULOSIS, INTRADERMAL 2009 [facility] SKIN TEST; TUBERCULOSIS, INTRADERMAL 2009 [facility] ELECTROCARDIOGRAM, ROUTINE ECG WITH AT LEAST 12 LEADS; WITH INTERPRETATION AND REPORT 2009 [facility] SKIN TEST; TUBERCULOSIS, INTRADERMAL 2009 [facility] CASE MANAGEMENT, EACH 15 MINUTES 2009 [facility] IMMUNIZATION ADMINISTRATION (INCLUDES PERCUTANEOUS, INTRADERMAL, SUBCUTANEOUS, OR INTRAMUSCULAR INJECTIONS); EACH ADDITIONAL VACCINE (SINGLE OR COMBINATION VACCINE/TOXOID) 2009 [facility] CASE MANAGEMENT, EACH 15 MINUTES 2008 [facility] OCCUPATIONAL THERAPY EVALUATION 2008 [facility] PHYSICAL THERAPY RE-EVALUATION 2008 [facility] INFLUENZA VIRUS VACCINE, TRIVALENT, LIVE (LAIV3), FOR INTRANASAL USE 2008 [facility] FITTING OF SPECTACLES, EXCEPT FOR APHAKIA; MONOFOCAL 2008 [facility] COORDINATED CARE FEE, RISK ADJUSTED MAINTENANCE, LEVEL 4 2008 [facility] HANDLING AND/OR CONVEYANCE OF SPECIMEN FOR TRANSFER FROM THE OFFICE TO A LABORATORY 2008 [facility] SCREENING TEST, PURE TONE, AIR ONLY 2008 [facility] COORDINATED CARE FEE, RISK ADJUSTED MAINTENANCE, LEVEL 4 2008 [facility] COORDINATED CARE FEE, RISK ADJUSTED MAINTENANCE, LEVEL 4 2008 [facility] THERAPEUTIC PROCEDURE, 1 OR MORE AREAS, EACH 15 MINUTES; THERAPEUTIC EXERCISES TO DEVELOP STRENGTH AND ENDURANCE, RANGE OF MOTION AND FLEXIBILITY 2008 [facility] THERAPEUTIC PROCEDURE, 1 OR MORE AREAS, EACH 15 MINUTES; THERAPEUTIC EXERCISES TO DEVELOP STRENGTH AND ENDURANCE, RANGE OF MOTION AND FLEXIBILITY 2008 [facility] SELF-CARE/HOME MANAGMENT TRAIN (EG,ACT OF DAILY [...] DoD CASE MANAGEMENT, EACH 15 MINUTES 2008 [facility] OCCUPATIONAL THERAPY RE-EVALUATION 2008 [facility] THERAPEUTIC [...] WISC CARD SORT TST),/HR OF PSYCHOLOGIST/PHYS TIME,BOTH [id number] ADMIN TST TO PAT & TIME INTERP [...] WISC CARD SORT TST),/HR OF PSYCHOLOGIST/PHYS TIME,BOTH [id number] ADMIN TST TO PAT & TIME INTERP TEST RES & PREP RPT 2008 [facility] THERAPEUTIC PROCEDURE, 1 OR MORE AREAS, EACH 15 MINUTES; THERAPEUTIC EXERCISES TO DEVELOP STRENGTH AND ENDURANCE, RANGE OF MOTION AND FLEXIBILITY 2008 [facility] COORDINATED CARE FEE, RISK ADJUSTED MAINTENANCE, LEVEL 3 2008 [facility] UNLISTED SPECIAL SERVICE, PROCEDURE OR REPORT 2008 [facility] PSYCHOLOGICAL TSTING (INCL PSYCHODIAG ASSESSMNT, EMOTITY, INTELLECTUAL ABILITIES, PERSONALITY &PSYCHOPATHOLOGY, EG, MMPI), ADMINISTERED COMPUTER, W QUALIFIED HEALTH CARE TECHNICIAN INTERPRET &RPT 2008 [facility] PSYCHIATRIC DIAGNOSTIC INTERVIEW EXAMINATION 2008 [facility] SCREENING TEST OF VISUAL ACUITY, QUANTITATIVE, BILATERAL 2008 [facility] COORDINATED CARE FEE, RISK ADJUSTED MAINTENANCE, LEVEL 3 2007 [facility] IMMUNIZATION ADMINISTRATION BY INTRANASAL OR ORAL ROUTE; 1 VACCINE (SINGLE OR COMBINATION VACCINE/TOXOID) 2007 [facility] AUDIOMETRIC TESTING OF GROUPS 2007 [facility] COLLECTION OF VENOUS BLOOD BY VENIPUNCTURE 2007 [facility] HANDLING AND/OR CONVEYANCE OF SPECIMEN FOR TRANSFER FROM THE OFFICE TO A LABORATORY 2007 [facility] CASE MANAGEMENT, EACH 15 MINUTES 2007 [facility] CASE MANAGEMENT, EACH 15 MINUTES 2007 [facility] CASE MANAGEMENT, EACH 15 MINUTES 2007 [facility] COORDINATED CARE FEE, RISK ADJUSTED MAINTENANCE 2007 [facility] CASE MANAGEMENT, EACH 15 MINUTES 2007 [facility] ARTERIOGRAPHY OF CEREBRAL ARTERIES 2007 [facility] OTHER EXCISION OR DESTRUCTION OF LESION OR TISSUE OF BRAIN 2007 [facility] OTHER CRANIECTOMY 2007 [facility] COMPUTERIZED AXIAL TOMOGRAPHY OF HEAD 2007 [facility] POSTOPERATIVE FOLLOW-UP VISIT, NORMALLY INCLUDED IN THE SURGICAL PACKAGE, INDICATE THAT EVALUATION & MANAGEMENT SERVICE WAS PERFORMED DURING A POSTOPERATIVE PERIOD REASON RELATED ORIGINAL PROCEDURE 2007 [facility] SELF-CARE/HOME MANAGMENT TRAIN (EG,ACT OF DAILY LIVING (ADL) &COMPENSAT TRAIN,MEAL PREPARATION,SAFETY PROCS,AND INSTRUCT IN USE OF ASST TECHNOLOGY DEV/ADPT EQUIP) DIR ONE-ON-ONE CONT,EA 15 MINUTES 2007 [facility] POSTOPERATIVE FOLLOW-UP VISIT, NORMALLY INCLUDED IN THE SURGICAL PACKAGE, INDICATE THAT EVALUATION & MANAGEMENT SERVICE WAS PERFORMED DURING A POSTOPERATIVE PERIOD REASON RELATED ORIGINAL PROCEDURE 2007 [facility] SURGERY OF INTRACRANIAL ARTERIOVENOUS MALFORMATION; SUPRATENTORIAL, SIMPLE 2007 [facility] UNLISTED SPECIAL SERVICE, PROCEDURE OR REPORT 2007 [facility] CASE MANAGEMENT, EACH 15 MINUTES 2007 [facility] CASE MANAGEMENT, EACH 15 MINUTES 2007 [facility] CASE MANAGEMENT, EACH 15 MINUTES 2007 [facility] CASE MANAGEMENT, EACH 15 MINUTES 2007 [facility] CASE MANAGEMENT, EACH 15 MINUTES 2007 [facility] CASE MANAGEMENT, EACH 15 MINUTES 2007 [facility] OTHER INCISION OF BRAIN 01/28 [facility] VENTRICULOSTOMY 2007 [facility] TEMPORARY TRACHEOSTOMY 02/17 [facility] CLOSED [ENDOSCOPIC] BIOPSY OF BRONCHUS 2007 [facility] VENOUS CATHETERIZATION, NOT ELSEWHERE CLASSIFIED 2007 [facility] PERCUTANEOUS [ENDOSCOPIC] GASTROSTOMY [PEG] 2007 [facility] COMPUTERIZED AXIAL TOMOGRAPHY OF HEAD 2007 [facility] COMPUTERIZED AXIAL TOMOGRAPHY OF THORAX 2007 [facility] COMPUTERIZED AXIAL TOMOGRAPHY OF ABDOMEN 2007 [facility] ARTERIOGRAPHY OF CEREBRAL ARTERIES 2007 [facility] DIAGNOSTIC ULTRASOUND OF HEART 2007 [facility] OTHER DIAGNOSTIC ULTRASOUND 2007 [facility] RESPIRATORY MEDICATION ADMINISTERED BY NEBULIZER 2007 [facility] OTHER OXYGEN ENRICHMENT 01/28 [facility] INSERTION OF ENDOTRACHEAL TUBE 2007 [facility] OTHER LAVAGE OF BRONCHUS AND TRACHEA 2007 [facility] ENTERAL INFUSION OF CONCENTRATED NUTRITIONAL SUBSTANCES 2007 [facility] CONTINUOUS MECHANICAL VENTILATION FOR 96 CONSECUTIVE HOURS OR MORE 2007 [facility] INJECTION OF ANTICOAGULANT 2007 [facility] INJECTION OF ANTIBIOTIC 01/28 [facility] TREATMENT OF SWALLOWING DYSFUNCTION AND/OR ORAL FUNCTION FOR FEEDING 2007 [facility] POSTOPERATIVE FOLLOW-UP VISIT, NORMALLY INCLUDED IN THE SURGICAL PACKAGE, INDICATE THAT EVALUATION & MANAGEMENT SERVICE WAS PERFORMED DURING A POSTOPERATIVE PERIOD REASON RELATED ORIGINAL PROCEDURE 2007 [facility] THERAPEUTIC PROCEDURE,1 OR MORE AREAS,EACH 15 MINUTES;NEUROMUSCULAR REEDUCATION OF MOVEMENT,BALANCE,COORDI NATION,KINESTHETIC SENSE,POSTURE,AND/OR PROPRIOCEPTION FOR SITTING AND/OR STANDING ACTIVITIES 2007 [facility] TREATMENT OF SWALLOWING DYSFUNCTION AND/OR ORAL FUNCTION FOR FEEDING 2007 [facility] THERAPEUTIC PROCEDURE, 1 OR MORE AREAS, EACH 15 MINUTES; GAIT TRAINING (INCLUDES STAIR CLIMBING) 2007 [facility] POSTOPERATIVE FOLLOW-UP VISIT, NORMALLY INCLUDED IN THE SURGICAL PACKAGE, INDICATE THAT EVALUATION & MANAGEMENT SERVICE WAS PERFORMED DURING A POSTOPERATIVE PERIOD REASON RELATED ORIGINAL PROCEDURE 2007 [facility] SELF-CARE/HOME MANAGMENT TRAIN (EG,ACT OF DAILY LIVING (ADL) &COMPENSAT TRAIN,MEAL PREPARATION,SAFETY PROCS,AND INSTRUCT IN USE OF ASST TECHNOLOGY DEV/ADPT EQUIP) DIR ONE-ON-ONE CONT,EA 15 MINUTES 2007 [facility] THERAPEUTIC PROCEDURE, 1 OR MORE AREAS, EACH 15 MINUTES; GAIT TRAINING (INCLUDES STAIR CLIMBING) 2007 [facility] MEDICAL NUTRITION THERAPY; RE-ASSESSMENT AND INTERVENTION, INDIVIDUAL, [id number] WITH THE PATIENT, EACH 15 MINUTES 2007 [facility] SELF-CARE/HOME MANAGMENT TRAIN (EG,ACT OF DAILY LIVING (ADL) &COMPENSAT TRAIN,MEAL PREPARATION,SAFETY PROCS,AND INSTRUCT IN USE OF ASST TECHNOLOGY DEV/ADPT EQUIP) DIR ONE-ON-ONE CONT,EA 15 MINUTES 2007 [facility] THERAPEUTIC ACTIVITIES, DIRECT (ONE-ON-ONE) PATIENT CONTACT (USE OF DYNAMIC ACTIVITIES TO IMPROVE FUNCTIONAL PERFORMANCE), EACH 15 MINUTES 2007 [facility] POSTOPERATIVE FOLLOW-UP VISIT, NORMALLY INCLUDED IN THE SURGICAL PACKAGE, INDICATE THAT EVALUATION & MANAGEMENT SERVICE WAS PERFORMED DURING A POSTOPERATIVE PERIOD REASON RELATED ORIGINAL PROCEDURE 2007 [facility] POSTOPERATIVE FOLLOW-UP VISIT, NORMALLY INCLUDED IN THE SURGICAL PACKAGE, INDICATE THAT EVALUATION & MANAGEMENT SERVICE WAS PERFORMED DURING A POSTOPERATIVE PERIOD REASON RELATED ORIGINAL PROCEDURE 2007 [facility] PHYSICAL THERAPY RE-EVALUATION 2007 [facility] POSTOPERATIVE FOLLOW-UP VISIT, NORMALLY INCLUDED IN THE SURGICAL PACKAGE, INDICATE THAT EVALUATION & MANAGEMENT SERVICE WAS PERFORMED DURING A POSTOPERATIVE PERIOD REASON RELATED ORIGINAL PROCEDURE 2007 [facility] THERAPEUTIC ACTIVITIES, DIRECT (ONE-ON-ONE) PATIENT CONTACT (USE OF DYNAMIC ACTIVITIES TO IMPROVE FUNCTIONAL PERFORMANCE), EACH 15 MINUTES 2007 [facility] TREATMENT OF SWALLOWING DYSFUNCTION AND/OR ORAL FUNCTION FOR FEEDING 2007 [facility] POSTOPERATIVE FOLLOW-UP VISIT, NORMALLY INCLUDED IN THE SURGICAL PACKAGE, INDICATE THAT EVALUATION & MANAGEMENT SERVICE WAS PERFORMED DURING A POSTOPERATIVE PERIOD REASON RELATED ORIGINAL PROCEDURE 2007 [facility] THERAPEUTIC ACTIVITIES, DIRECT (ONE-ON-ONE) PATIENT CONTACT (USE OF DYNAMIC ACTIVITIES TO IMPROVE FUNCTIONAL PERFORMANCE), EACH 15 MINUTES 2007 [facility] THERAPEUTIC PROCEDURE, 1 OR MORE AREAS, EACH 15 MINUTES; THERAPEUTIC EXERCISES TO DEVELOP STRENGTH AND ENDURANCE, RANGE OF MOTION AND FLEXIBILITY 2007 [facility] TREATMENT OF SWALLOWING DYSFUNCTION AND/OR ORAL FUNCTION FOR FEEDING 2007 [facility] POSTOPERATIVE FOLLOW-UP VISIT, NORMALLY INCLUDED IN THE SURGICAL PACKAGE, INDICATE THAT EVALUATION & MANAGEMENT SERVICE WAS PERFORMED DURING A POSTOPERATIVE PERIOD REASON RELATED ORIGINAL PROCEDURE 2007 [facility] POSTOPERATIVE FOLLOW-UP VISIT, NORMALLY INCLUDED IN THE SURGICAL PACKAGE, INDICATE THAT EVALUATION & MANAGEMENT SERVICE WAS PERFORMED DURING A POSTOPERATIVE PERIOD REASON RELATED ORIGINAL PROCEDURE 2007 [facility] THERAPEUTIC ACTIVITIES, DIRECT (ONE-ON-ONE) PATIENT CONTACT (USE OF DYNAMIC ACTIVITIES TO IMPROVE FUNCTIONAL PERFORMANCE), EACH 15 MINUTES 2007 [facility] TREATMENT OF SPEECH, LANGUAGE, VOICE, COMMUNICATION, AND/OR AUDITORY PROCESSING DISORDER; INDIVIDUAL 2007 [facility] MEDICAL NUTRITION THERAPY; RE-ASSESSMENT AND INTERVENTION, INDIVIDUAL, [id number] WITH THE PATIENT, EACH 15 MINUTES 2007 [facility] OCCUPATIONAL THERAPY EVALUATION 2007 [facility] THERAPEUTIC ACTIVITIES, DIRECT (ONE-ON-ONE) PATIENT CONTACT (USE OF DYNAMIC ACTIVITIES TO IMPROVE FUNCTIONAL PERFORMANCE), EACH 15 MINUTES 2007 [facility] TRACHEOSTOMY SPEAKING VALVE 2007 [facility] POSTOPERATIVE FOLLOW-UP VISIT, NORMALLY INCLUDED IN THE SURGICAL PACKAGE, INDICATE THAT EVALUATION & MANAGEMENT SERVICE WAS PERFORMED DURING A POSTOPERATIVE PERIOD REASON RELATED ORIGINAL PROCEDURE 2007 [facility] PHYSICAL THERAPY EVALUATION 2007 [facility] TRACHEOSTOMY SPEAKING VALVE 2007 [facility] POSTOPERATIVE FOLLOW-UP VISIT, NORMALLY INCLUDED IN THE SURGICAL PACKAGE, INDICATE THAT EVALUATION & MANAGEMENT SERVICE WAS PERFORMED DURING A POSTOPERATIVE PERIOD REASON RELATED ORIGINAL PROCEDURE 2007 [facility] PHYSICAL THERAPY EVALUATION 2007 [facility] HEALTH&BEHAV ASSESSMENT (EG, HEALTH-FOC CLINICAL INTERVIEW, BEHAVIORAL OBSERVATIONS, PSYCHOPHYSICOLOGICAL MONITOR, HEALTH-ORIENT QUESTIONNAIRES), EA 15 MIN [id number] W THE PATIENT; INIT ASSESSMENT 2007 [facility] MEDICAL NUTRITION THERAPY; RE-ASSESSMENT AND INTERVENTION, INDIVIDUAL, [id number] WITH THE PATIENT, EACH 15 MINUTES 2007 [facility] INSERTION OF GASTROSTOMY TUBE, PERCUTANEOUS, UNDER FLUOROSCOPIC GUIDANCE INCLUDING CONTRAST INJECTION(S), IMAGE DOCUMENTATION AND REPORT 2007 [facility] MEDICAL NUTRITION THERAPY; RE-ASSESSMENT AND INTERVENTION, INDIVIDUAL, [id number] WITH THE PATIENT, EACH 15 MINUTES 2007 [facility] MEDICAL NUTRITION THERAPY; RE-ASSESSMENT AND INTERVENTION, INDIVIDUAL, [id number] WITH THE PATIENT, EACH 15 MINUTES 2007 [facility] POSTOPERATIVE FOLLOW-UP VISIT, NORMALLY INCLUDED IN THE SURGICAL PACKAGE, INDICATE THAT EVALUATION & MANAGEMENT SERVICE WAS PERFORMED DURING A POSTOPERATIVE PERIOD REASON RELATED ORIGINAL PROCEDURE 2007 [facility] POSTOPERATIVE FOLLOW-UP VISIT, NORMALLY INCLUDED IN THE SURGICAL PACKAGE, INDICATE THAT EVALUATION & MANAGEMENT SERVICE WAS PERFORMED DURING A POSTOPERATIVE PERIOD REASON RELATED ORIGINAL PROCEDURE 2007 [facility] CRANIECTOMY OR CRANIOTOMY FOR EVACUATION OF HEMATOMA, SUPRATENTORIAL; INTRACEREBRAL 2007 [facility] MEDICAL NUTRITION THERAPY; RE-ASSESSMENT AND INTERVENTION, INDIVIDUAL, [id number] WITH THE PATIENT, EACH 15 MINUTES 2007 [facility] SKIN TEST; TUBERCULOSIS, INTRADERMAL 2006 [facility] PT A e ment Kinetic Training PT Assessment Kinetic Training 81046 2007 [facility] CARTER Training And Self-Care Skills Training And Self-Care Skills 34714 2007 [facility] Exercises A isted Exercises For [place]erc[place] ROM 50159 2007 [facility] Treatment Of Swallowing Dysfunction Treatment Of Swallowing Dysfunction 12932 2007 ODALIS RODRIGUEZ [facility] Supervised Individual Speech/Hearing Therapy 2007 ODALIS RODRIGUEZ Treatment Of Swallowing Dysfunction Treatment Of Swallowing Dysfunction 96301 2007 ODALIS RODRIGUEZ Tracheostomy speaking valve 2007 ODALIS RODRIGUEZ Special [facility] Services Evaluation of Speech/Hearing Problem 2007 ODALIS RODRIGUEZ Evaluation Of Swallowing And Oral Function Evaluation Of Swallowing And Oral Function 63386 2007 ODALIS RODRIGUEZ [facility] Tracheostomy speaking valve 2007 JENNIFERODALIS [facility] Health And Behav A e mt Each 15 Min Initial A e ment Health And Behav Assessmt Each 15 Min Initial Assessment 62457 2007 HECTOR DODGE Medical Nutrition Therapy Re-a e ment, Intervention Medical Nutrition Therapy Re-assessment, Intervention 24652 2007 CHIDI ROBERT Medical Nutrition Therapy Re-a e ment, Intervention Medical Nutrition Therapy Re-assessment, Intervention 61273 2007 CHIDI ROBERT Medical Nutrition Therapy Re-a e ment, Intervention Medical Nutrition Therapy Re-assessment, Intervention 77568 2007 CHIDI ROBERT [facility] Immunization Admin By Intranasal / Oral Route One Vaccine Immunization Admin By Intranasal / Oral Route One Vaccine 40907 2006 PASQUALE PLASCENCIA [facility] Influenza Virus Vaccine Live Intranasal 2006 PASQUALE PLASCENCIA [facility] Skin Test Anergy Tuberculin Intradermal Skin Test Anergy Tuberculin Intradermal 85755 2006 PASQUALE PLASCENCIA [facility] Psychiatric Therapy Individual Approximately 20-30 Minutes Psychiatric Therapy Individual Approximately 20-30 Minutes 29472 2006 ALESSIA TAN [facility] Psychiatric Evaluation Comprehensive Examination Psychiatric Evaluation Comprehensive Examination 55204 2006 ALESSIA TAN [facility] Hepatitis A And Hepatitis B (Intramuscular Use) Adult Dosage Hepatitis A And Hepatitis B (Intramuscular Use) Adult Dosage 57510 2006 ROQUE WHITNEY [facility] Immunization Administration One Vaccine Immunization Administration One Vaccine 65652 2006 ROQUE WHITNEY [facility] Threshold Audiogram (Pure Tone) Threshold Audiogram (Pure Tone) 84491 2006 KOMAL SYED [facility] Audiogram (Screening) Audiogram (Screening) 79412 2006 RITCHIE YOUNG [facility] Ophthalmological New Patient Start Comprehensive Care Ophthalmological New Patient Start Comprehensive Care 53919 2006 GUSTAVO VALLE Determination Of Refractive State Determination Of Refractive State 39420 2006 GUSTAVO VALLE Exercises A isted Exercises For ROM Exercises Assisted Exercises For ROM 23864 2006 BRET VILLA [facility] PT A e ment Kinetic Training Initial 30 Minutes PT Assessment Kinetic Training Initial 30 Minutes 04605 2006 BRET VILLA Physical Medicine - Group Physical Therapy Se ion Physical Medicine - Group Physical Therapy Session 60856 2006 BRET VILLA Psychiatric Therapy Environmental Intervention Psychiatric Therapy Environmental Intervention 05031 2006 LEMUEL SAMPSON Psychiatric Therapy Individual Approximately 20-30 Minutes Psychiatric Therapy Individual Approximately 20-30 Minutes 49388 2006 LEMUEL SAMPSON Psychologic Testing And Report Administered By Computer Psychologic Testing And Report Administered By Computer 06546 2006 LEMUEL SAMPSON [facility] Psychiatric Evaluation Comprehensive Examination Psychiatric Evaluation Comprehensive Examination 67191 2006 LEMUEL SAMPSON [facility] Skin Test Anergy Tuberculin Intradermal Skin Test Anergy Tuberculin Intradermal 91605 2009 KAREEN ARMENDARIZ [facility] Skin Test Anergy Tuberculin Intradermal Skin Test Anergy Tuberculin Intradermal 69960 2009 JAZZ DAVIS [facility] Electrocardiogram Electrocardiogram 91918 01/17 EMMA WHALEY [facility] Skin Test Anergy Tuberculin Intradermal Skin Test Anergy Tuberculin Intradermal 85621 2009 CIERA FOREMAN [facility] Coordinated care fee, risk adjusted maintenance 2009 IVANNA CORTÉS S [facility] Case Management, each 15 minutes 2009 IVANNA CORTÉS [facility] Influenza Virus Vaccine Pandemic Formulation Influenza Virus Vaccine Pandemic Formulation 26637 2009 WILTON SILVA [facility] Immunization Admin By Intranasal / Oral Route One Vaccine Immunization Admin By Intranasal / Oral Route One Vaccine 73778 2009 WILTON SILVA [facility] Immunization Administration Each Additional Vaccine 2009 WILTON SILVA [facility] Typhoid Vaccine Vi Capsular Polysaccharide, For Intramus Use Typhoid Vaccine Vi Capsular Polysaccharide, For Intramus Use 30933 2009 WILTON SILVA [facility] Skin Test Anergy Tuberculin Intradermal Skin Test Anergy Tuberculin Intradermal 76603 2009 WILTON SILVA [facility] Coordinated care fee, risk adjusted maintenance, Level 4 2009 LONGLYDIAA S [facility] Case Management, each 15 minutes 2009 LONGIVANNA S [facility] Occupational Therapy Evaluation Occupational Therapy Evaluation 63939 2008 PAL NIEVES 30 min [facility] Physical Medicine Physical Therapy Re-Evaluation Physical Medicine Physical Therapy Re-Evaluation 07288 2008 TAMIA CARMONA [facility] Influenza Virus Vaccine Live Intranasal 2008 HEIDE PRASAD [facility] Immunization Admin By Intranasal / Oral Route One Vaccine Immunization Admin By Intranasal / Oral Route One Vaccine 00261 2008 HEIDE PRASAD [facility] Coordinated care fee, risk adjusted maintenance, Level 4 2008 MOO IVANNA S [facility] Spectacles Services Fitting Monofocals (Not For Aphakia) Spectacles Services Fitting Monofocals (Not For Aphakia) 75499 2008 DOROTHY SUH NCElin [facility] Determination Of Refractive State Determination Of Refractive State 23009 2008 DOROTHY SUH NCElin [facility] Ophthalmological New Patient Start Comprehensive Care Ophthalmological New Patient Start Comprehensive Care 25202 2008 DOROTHY SUH NCElin [facility] -Supervised Specimen Handling / Transfer: Office To Lab -Supervised Specimen Handling / Transfer: Office To Lab 40822 2008 MEREDITH PAGE [facility] Coordinated care fee, risk adjusted maintenance, Level 4 2008 LONG, IVANNA S [facility] Case Management, each 15 minutes 2008 LONG, IVANNA S [facility] Audiogram (Screening) Audiogram (Screening) 40193 2008 SIDNEY DICKERSON [facility] Audiometry Group Testing Audiometry Group Testing 11195 2008 SIDNEY DICKERSON [facility] Coordinated care fee, risk adjusted maintenance, Level 4 2008 LONG, IVANNA S [facility] Case Management, each 15 minutes 2008 LONG, IVANNA S [facility] Physical Therapy: ___ Se ion Segments, 15 Minutes Each Physical Therapy: ___ Session Segments, 15 Minutes Each 28042 2008 ELVIA JEFFERS x 20 mins [facility] Physical Therapy: ___ Se ion Segments, 15 Minutes Each Physical Therapy: ___ Session Segments, 15 Minutes Each 53342 2008 ELVIA JEFFERS x 30 mins [facility] Phys Therapy Education Self Care Training - Per 15 Minutes Phys Therapy Education Self Care Training - Per 15 Minutes 89718 2008 HARVEY KONG [facility] Physical Therapy: ___ Se ion Segments, 15 Minutes Each Physical Therapy: ___ Session Segments, 15 Minutes Each 45988 2008 NORAH JIMENEZ V [facility] Aquatic Exercises Aquatic Exercises 52480 03/15 NORAH JIMENEZ Phys Therapy Education Self Care Training - Per 15 Minutes Phys Therapy Education Self Care Training - Per 15 Minutes 09916 2008 HARVEY KONG Phys Therapy Education Self Care Training - Per 15 Minutes Phys Therapy Education Self Care Training - Per 15 Minutes 65392 2008 HARVEY KONG Phys Therapy Education Self Care Training - Per 15 Minutes Phys Therapy Education Self Care Training - Per 15 Minutes 95861 2008 HARVEY KONG [facility] Coordinated care fee, risk adjusted maintenance, [...] Self Care Training - Per 15 Minutes 02451 2008 HARVEY KONG Aquatic Exercises Aquatic Exercises 87449 02/28 TONY NORAH V [facility] Phys Therapy Education Self Care Training - Per 15 Minutes Phys Therapy Education Self Care Training - Per 15 Minutes 85058 2008 HARVEY KONG Aquatic Exercises Aquatic Exercises 35003 02/16 RENEE GREENWOOD [facility] Physical Medicine Physical Therapy Evaluation Physical Medicine Physical Therapy Evaluation 89752 2008 LATONYA MARADIAGA [facility] Coordinated care fee, risk adjusted maintenance, Level 4 2008 LONG, IVANNA S [facility] Case Management, each 15 minutes 2008 LONG, IVANNA S [facility] Coordinated care fee, risk adjusted maintenance, Level 4 2008 LONG, IVANNA S [facility] Case Management, each 15 minutes 2008 LONG, IVANNA S [facility] Occupational Therapy Re-Evaluation Occupational Therapy Re-Evaluation [id number] 2008 [email or web address] STAFFORD [facility] PT A e ment Kinetic Training PT Assessment Kinetic Training 57183 2008 PAULO CORTÉS [facility] Coordinated care fee, risk adjusted maintenance, Level 3 2008 IVANNA CORTÉS S [facility] Case Management, each 15 minutes 2008 IVANNA CORTÉS [facility] PT A e ment Kinetic Training PT Assessment Kinetic Training [id number] 2008 LILI MONTES PT A e ment Kinetic Training PT Assessment Kinetic Training 42991 2008 LILI MONTES PT A e ment Kinetic Training PT Assessment Kinetic Training 62106 2008 LILI MONTSE Psychometric Neuropsych Testing Battery Admin By Physician Psychometric Neuropsych Testing Battery Admin By Physician [id number] 2008 MONICA WATSON [facility] PT A e ment Kinetic Training PT Assessment Kinetic Training 86741 2008 PAULO CORTÉS PT A e ment Kinetic Training PT Assessment Kinetic Training 44385 2008 PAULO CORTÉS PT A e ment Kinetic Training PT Assessment Kinetic Training 21269 2008 PAULO CORTÉS Psychometric Neuropsych Testing Battery Admin By Physician Psychometric Neuropsych Testing Battery Admin By Physician 50338 2008 JATINDER GARCIA [facility] Psychometric Neuropsych Testing Battery Admin By Senior Quality Assurance Specialist Psychometric Neuropsych Testing Battery Admin By Senior Quality Assurance Specialist [id number] 2008 JATINDER GARCIA [facility] Exercises A isted Exercises For ROM Exercises Assisted Exercises [place] ROM 52446 2008 DELETE_MEREDITH MISHRA [facility] Training And Self-Care Skills Training And Self-Care Skills 86108 2008 TIAGOTE_MEREDITH MISHRA [facility] Occupational Therapy Evaluation Occupational Therapy Evaluation 72834 2008 TIAGOTE_MEREDITH MISHRA [facility] Coordinated care fee, risk adjusted maintenance, Level 3 2008 IVANNA CORTÉS [facility] Case Management, each 15 minutes 2008 IVANNA CORTÉS [facility] Psychologic Testing And Report Administered By Computer Psychologic Testing And Report Administered By Computer 59310 2008 JATINDER GARCIA Psychometric Neuropsych Testing Battery Admin By Senior Quality Assurance Specialist Psychometric Neuropsych Testing Battery Admin By Senior Quality Assurance Specialist [id number] 2008 JATINDER GARCIA [facility] Psychiatric Evaluation Comprehensive Examination Psychiatric Evaluation Comprehensive Examination 13966 2008 MONICA WATSON [facility] Screening Test Of Visual Acuity, Quantitative, Bilateral Screening Test Of Visual Acuity, Quantitative, Bilateral 24771 2008 SIERRA DE LA ROSA [facility] Coordinated care fee, risk adjusted maintenance, Level 3 2007 LONG, IVANNA S [facility] Case Management, each 15 minutes 2007 LONG, IVANNA S [facility] Audiometry Group Testing Audiometry Group Testing 36120 2007 PAL MCLEOD [facility] Immunization Admin By Intranasal / Oral Route One Vaccine Immunization Admin By Intranasal / Oral Route One Vaccine 39417 2007 KAREEN ARMENDARIZ [facility] Influenza Virus Vaccine Live Intranasal 2007 [facility] Skin Test Anergy Tuberculin Intradermal Skin Test Anergy Tuberculin Intradermal 40395 2007 [facility] Venipuncture Venipuncture 94568 2007 DAKOTA MCCORMICK [facility] -Supervised Specimen Handling / Transfer: Office To Lab -Supervised Specimen Handling / Transfer: Office To Lab [address]Supervised Specimen Handling / Transfer: Office To Lab -Supervised Specimen Handling / Transfer: Office To Lab 28477 2007 TAMIA BALTAZAR [facility] Case Management, each 15 minutes 2007 LONG, IVANNA S [facility] Case Management, each 15 minutes 2007 LONG, IVANNA S [facility] Case Management, each 15 minutes 2007 LONG, IVANNA S [facility] Coordinated care fee, risk adjusted maintenance [...] each 15 minutes 2007 LONG, IVANNA S [facility] Case Management, each 15 minutes 2007 LONG, IVANNA S [facility] Treatment Of Swallowing Dysfunction Treatment Of Swallowing Dysfunction 68584 2007 ODALIS RODRIGUEZ [facility] Physical Therapy Neuromuscular Re-education Physical Therapy Neuromuscular Re-education 60554 2007 JAZZ CARTER. [facility] Treatment Of Swallowing Dysfunction Treatment Of Swallowing Dysfunction 79837 2007 ODALIS RODRIGUEZ [facility] Training And Self-Care Skills Training And Self-Care Skills 00529 2007 JAZZ CARTER [facility] Medical Nutrition Therapy Re-a e ment, Intervention Medical Nutrition Therapy Re-assessment, Intervention 40648 2007 YOLANDA CEDEÑO [facility] Training And Self-Care Skills Training And Self-Care Skills 44108 2007 JAZZ CARTER. 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 Social History Type Response Date Comment Sour e Tobacco smoking status NHIS VA-TOBACCO USE EVERY DAY CIGARETTES 03/29/2025 [facility] History of tobacco use VA-TOBACCO NEVER USED OTHER TYPE 03/29/2025 [facility] History of tobacco use ID-TOBACCO FORMER USER 03/18/2024 [facility] History of tobacco use VA-TOBACCO USER EVERY DAY 03/18/2023 [facility] of [facility]/06/[address] [facility] History of tobacco use [facility] ADMIT TOBACCO SCREEN YES 11/06/[address] [facility] History of tobacco use LIFETIME NON-USER OF TOBACCO 01/17/2011 [facility] History of tobacco use LIFETIME NON-USER OF TOBACCO 03/04/2008 [facility] This section is an empty social history section. DoD Plan of Care List of future care activities from Department of 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 Additional future care activities may be listed in the Assessment and Plan section. Date/Time Care Activity Care Activity Detail Facili ty 05/03/2025 AMBULATORY - MEDICINE AMBULATORY - MEDICI [facility]
--- OUTSIDE RECORDS SUMMARY | 2025-04-09 13:19 | XMS_ITS | Encounter Summary ---
Author Name [facility] Address [address] [place] [address] Care Team Providers Care Network Manager Name Role Phone AARON KENNEDY Primary Care [...] Palacios's Name Patient's Relationship to Policy Palacios [facility] 2018 PRIME Sep 29, 2017 RETIREE [id number] CHERISERICK Bell PATIENT [facility] 2018 TRICA RE Sep 29, 2017 PRIME [id number] [phone] RICK CUMMINGS PATIENT Selected Encounter This section includes the information on record at [place] for the Encounter. Date/Time Encounter Type Encounter Description Reason Provider Source Mar 29, 2025 08:30 AM OFFICE O/P EST LOW 20 MIN PRIMARY CARE/MEDICINE ICD-10-CM Z00.00 Encntr for general adult medical exam w/o abnormal findings JENNIFER KENNEDY IHMariana Encounter Template Text not used by [facility] Assessments - Encounter Diagnoses This section includes the primary and secondary diagnoses documented for the Encounter. Date/Time Primary/Secondary Diagnosis Diagnosis Name Provider Source Mar 29, 2025 01:08 PM PRIMARY Encntr for general adult medical exam w/o abnormal findings JENNIFER KENNEDY [facility] Mar 29, 2025 01:08 PM SECONDARY Arteriovenous malformation, site unspecified JENNIFER KENNEDY [facility] Mar 29, 2025 01:08 PM SECONDARY Other amnesia [facility] Mar 29, 2025 01:08 PM SECONDARY Pain in unspecified knee JENNIFER KENNEDY [facility] Mar 29, 2025 01:08 PM SECONDARY Tobacco use JENNIFER KENNEDY [facility] Mar 29, 2025 01:08 PM SECONDARY Vitamin D deficiency, unspecified JENNIFER KENNEDY [facility] Plan of Treatment: Future Appointments (+ 6 months) and Future Tests (+/- 45 days) The Plan of Treatment section includes future care activities for the patient from all [place] treatmentfacilities. This section includes future appointments and future orders which are active, pending or scheduled. Future Appointments This section includes appointments that were scheduled to occur 6 months from the date of the Encounter, up to a maximum of 20 appointments. The data comes from all [facility] facilities. Appointment Date/Time Appointment Type Appointme nt Facility Name May 03, 2025 11:00 AM AMBULATORY - MEDICINE [facility] Active, Pending, and Scheduled Orders This section includes a listing of several types of active, pending, and scheduled orders, including clinic medications orders, diagnostic test orders, procedure orders and consult orders; where the start date of the order is 45 days before the date of the Encounter or 45 days after the date of theEncounter. The data comes from all [facility]. Test Date/Time Test Type Test Details Facility Name Mar 29, 2025 09:54 AM Consult Order PRIMARY CA RE [facility] OUTPT ST[facility] Cons Combination Building Inspector's Choice [facility] Lab Results: +/- 30 days of the encounter This section includes the Chemistry and Hematology Lab Results on record with [place] for the patient. Radiology Reports and Pathology Reports are provided separately, in subsequent sections. Lab Results This section contains the Chemistry/Hematology Results that were resulted 30 days before or 30 daysafter the date of the Encounter. Date/Time Source Result Type Result - Unit Interpretation Reference Range Specimen Type Comment Mar 29, 2025 09:59 AM [facility] HGA1C BLOOD Specimen Type: BLOOD No comment entered. Ordering Provider: AARON KENNEDY Report Released Date/Time: Mar 29, 2025 08:53 AM Reporting Lab: [facility] [address] [place] [id number] Performing Lab: [address] [address] HGA1C 5.9 4.0-6.0 Mar 29, 2025 09:59 AM [facility] TSH W/ REFLEX FT4 (STL) PLASMA Speci men Type: PLASMA No comment entered. Ordering Provider: AARON KENNEDY Report Released Date/Time: Mar 29, 2025 08:53 AM Reporting Lab: [address] [address] Performing Lab: [address] [address] TSH 1.606 u[IU]/mL 0.47-5 Mar 29, 2025 09:59 AM [facility] CBC BLOOD Specimen Type: BLOOD No comment entered. Ordering Provider: AARON KENNEDY Report Released Date/Time: Mar 29, 2025 08:53 AM Reporting Lab: [address] [address] Performing Lab: [address] [address] WBC 5.4 10*3/uL 3.6-11.2 RBC 4.83 10*6/uL 4.10-5.70 HGB 14.9 g/dL 13.1-16.8 HCT 44.7 38.2-48.4 MCV 92.5 fL 80.0-100.0 MCH 30.8 pg 27.0-34.0 MCHC 33.3 g/dL 33.0-36.0 PLT 223 10*3/uL 150-400 MPV 10.6 fL 7.5-11.2 RDW 12.0 11.8-15.1 LYMPHOCYTES, AUTO % 37 MONOCYTES, AUTO % 10 NEUTROPHILS, AUTO % 48 EOSINOPHILS, AUTO % 4 BASOPHILS, AUTO % 1 LYMPHOCYTES, ABSOLUTE 1.99 10*3/uL 0.77- 4.50 MONOCYTES, ABSOLUTE 0.52 10*3/uL 0.19-0. 80 NEUTROPHILS, ABSOLUTE 2.62 10*3/uL 2.10- 8.00 EOSINOPHILS, ABSOLUTE 0.23 10*3/uL 0.00- 0.60 BASOPHILS, ABSOLUTE 0.07 10*3/uL 0.00-0. 20 Mar 29, 2025 09:59 AM [facility] VITAMIN D, 25-HYDROXY SERUM Specimen Type: SE RUM No comment entered. Ordering Provider: AARON KENNEDY Report Released Date/Time: Mar 29, 2025 08:53 AM Reporting Lab: [address] [address] Performing Lab: [address] [address] VITAMIN D, 25-HYDROXY 37.6 ng/mL 30-96 Mar 29, 2025 09:59 AM [facility] LIPID PANEL (STL) PLASMA Specimen Ty pe: PLASMA Comment: No hemolysis noted. Ordering Provider: AARON KENNEDY Report Released Date/Time: Mar 29, 2025 08:53 AM Reporting Lab: [address] [address] Performing Lab: [address] [address] CHOLESTEROL 199 mg/dL 0-200 TRIGLYCERIDE 196 mg/dL H 0-150 CALCULATED LDL 119 mg/dL HDL(New) 41 mg/dL >40 Mar 29, 2025 09:59 AM [facility] COMPREHENSIVE METABOLIC PANEL PLASMA Specimen Type: PLASMA Comment: No hemolysis noted. Ordering Provider: AARON KENNEDY Report Released Date/Time: Mar 29, 2025 08:53 AM Reporting Lab: [address] [address] Performing Lab: [address] [address] CREATININE 0.94 mg/dL 0.7-1.3 UREA NITROGEN 16.7 mg/dL 9.0-25.0 GLUCOSE 97 mg/dL 72-99 SODIUM 139 meq/L 136-145 POTASSIUM 4.0 meq/L 3.5-5 CHLORIDE 106 meq/L 98-107 CARBON DIOXIDE 24 meq/L 22-31 CALCIUM 9.1 mg/dL 8.4-10.4 PROTEIN 7.2 g/dL 6-8.6 ALBUMIN 4.5 g/dL 3.4-5 TOTAL BILIRUBIN 0.3 mg/dL 0.2-1.2 ALKALINE PHOSPHATASE 83 U/L 40-150 AST/SGOT 31 U/L 5-34 ALT/SGPT 26 U/L 8-40 EGFR (CKD-EPI 2020) 107.1 >60 Vital Signs: All taken on the encounter date This section contains inpatient and outpatient Vital Signs collected on the date of the Encounter. Date/Time Temperature Pulse Blood Pressure Respiratory Rate SP02 Pain Height Weight Body Mass Index Source Mar 29, 2025 08:34 AM 97.6 F 78 /min 120/83 mm[Hg] 18 /min 97 % 0 74.5 in 175.7 lb 22 [facility] Social History: Smoking Status (Most current) and Tobacco Use (All prior to encounter date) This section includes the most current, and the historical, smoking and tobacco- related health factors from the [place] facility where the Encounter took place. Current Smoking Status This section includes the most current smoking, or tobacco-related health factor, from the [place] facility where the Encounter took place. Date/Time Current Smoking Status Comment Facil ity Mar 29, 2025 08:30 AM VA-TOBACCO NEVER USED OTHER TYPE [facility] Tobacco Use History This section includes a history of the smoking, or tobacco-related health factors, that were collected on or before the date of the Encounter. The data comes from the [place] facility where the Encounter took place. Date/Time Smoking Status/Tobacco Use Comment F acility Mar 29, 2025 08:30 AM VA-TOBACCO SCREEN FOLLOW-UP [facility] Mar 29, 2025 08:30 AM VA-TOBACCO USE ADVICE [facility] Mar 29, 2025 08:30 AM VA-TOBACCO USE SENIOR ENERGY CONSULTANT NO [facility] Mar 29, 2025 08:30 AM VA-TOBACCO USE EVERY DAY CIGARET CAM [facility] Mar 29, 2025 08:30 AM VA-TOBACCO USE MED YES [facility] Mar 29, 2025 08:30 AM VA-TOBACCO USE WI 30 MIN OF WAKE UP [facility] Mar 18, 2024 10:30 AM VA-TOBACCO FORMER USER [facility] Mar 18, 2024 10:30 AM VA-TOBACCO QUIT < 1 YEAR [facility] Mar 18, 2023 09:00 AM VA-TOBACCO DOESNT USE WI 30 MIN WAKEUP [facility] Mar 18, 2023 09:00 AM VA-TOBACCO USE 5 TO 15 YEARS [facility] Mar 18, 2023 09:00 AM VA-TOBACCO USE ADVICE [facility] Mar 18, 2023 09:00 AM VA-TOBACCO USE SENIOR ENERGY CONSULTANT NO [facility] Mar 18, 2023 09:00 AM VA-TOBACCO USE MED NO [facility] Mar 18, 2023 09:00 AM VA-TOBACCO USER EVERY DAY [facility] Encounter Notes: All associated encounter notes This section contains the clinical notes associated to the Encounter. Date/Time Encounter Note(s) Provider Source Mar 30, 2025 08:11 AM PHYSICIAN LETTERS: LOCAL TITLE: TEST RESULT GENERAL LETTER ST STANDARD TITLE: PHYSICIAN LETTERS DATE OF NOTE: MAR 30, 2025@08:11 ENTRY DATE: MAR 30, 2025@08:11:55 AUTHOR: AARON KENNEDY EXP COSIGNER: URGENCY: STATUS: COMPLETED [facility] [address] [place] [address] MAR 30, 2025 RICK CUMMINGS [address] [place], [place] [address] Dear Rick Cummings, I would like to [...] optimal is between 100 and 129). TRIGLYCERIDE 196 H mg/dL 03/29/2025 09:59 CHOLESTEROL 199 mg/dL 03/29/2025 09:59 HDL(New) 41 mg/dL 03/29/2025 09:59 CALCULATED LDL 119 mg/dL 03/29/2025 09:59 These results are abnormal. Your triglyceride level is slightly elevated. Please review the following lifestyle modifications to improve this reading. -Incorporate 30-minutes of exercise with walking 5 [...] have less fat that beef or pork. -Smoking cessation is recommended as well. HEMOGLOBIN A1C - Gives us information about your diabetes (sugar or glucose) control over the past 3 months. Your target is to keep your A1C below 5.7%. HGA1C 5.9 % 03/29/2025 09:59 These results are abnormal. This level is in the prediabetic range. If the level becomes greater than 6.4 then it would warrant the diagnosis of diabetes mellitus type 2. You can improve this by making healthy diet choices and increasing your physical activity. Additionally, there is a clinic stave log ripsaw operator who you can self-schedule with for recommendations on healthy meal plan and diet modifications. CBC - A complete blood count (CBC) gives important information about the kinds and numbers of cells in the blood, especially red blood cells, white blood cells, and platelets. HGB 14.9 g/dL 03/29/2025 09:59 HEMATOCRIT 44.7 % (03/29/25 09:59) PLT 223 10*3/uL 03/29/2025 09:59 WHITE BLOOD COUNT 5.4 10*3/uL (03/29/25 09:59) These readings are within normal limits. CHEM 7 - This is important information about the current status of your kidneys, liver, and electrolyte and acid/base balance as well as of your blood sugar and blood proteins. SODIUM 139 mEq/L 03/29/2025 09:59 POTASSIUM 4.0 mEq/L 03/29/2025 09:59 CHLORIDE 106 mEq/L 03/29/2025 09:59 UREA NITROGEN 16.7 mg/dL 03/29/2025 09:59 CREATININE 0.94 mg/dL 03/29/2025 09:59 CALCIUM 9.1 mg/dL 03/29/2025 09:59 CARBON DIOXIDE 24 mEq/L 03/29/2025 09:59 GLUCOSE 97 mg/dL 03/29/2025 09:59 EGFR (CKD-EPI 2020) 107.1 03/29/2025 09:59 These readings are within normal limits. LIVER FUNCTION PANEL - These are tests for liver function: PROTEIN 7.2 g/dL 03/29/2025 09:59 ALBUMIN 4.5 g/dL 03/29/2025 09:59 TOTAL BILIRUBIN 0.3 mg/dL 03/29/2025 09:59 ALKALINE PHOSPHATASE 83 U/L 03/29/2025 09:59 AST/SGOT 31 U/L 03/29/2025 09:59 ALT/SGPT 26 U/L 03/29/2025 09:59 These readings are within normal limits. TSH - Thyroid-stimulating hormone (also known as TSH or thyrotropin) is a peptide hormone synthesized and secreted by thyrotrope cells in the anterior pituitary gland, which regulates the endocrine function of the thyroid gland. TSH TSH 1.606 uIU/mL 03/29/2025 09:59 These readings are within normal limits. VITAMIN D - Helps promote the proper utilization of calcium and phosphorus, thereby producing proper bone maintenance. VITAMIN D, 25-HYDROXY 37.6 ng/mL 03/29/2025 09:59 These readings are within normal limits. PLAN Please continue your treatment as we discussed during your visit. If you have any questions please call your classification case manager. I look forward to seeing you at your next clinic appointment. Thank you for choosing the [facility] for your healthcare. FUTURE APPOINTMENTS: 03/30/2026 10:00 NOE-YVETTE PACT 7 PCP Sincerely, AARON KENNEDY, MSN, AGNP-C NURSE PRACTITIONER RICK CUMMINGS JR, TAYLOR L [facility] Mar 29, 2025 08:44 AM PRIMARY CARE NOTE: LOCAL TITLE: PRIMARY CARE PROVIDER ESTABLISHED VISIT ST STANDARD TITLE: PRIMARY CARE NOTE DATE OF NOTE: MAR 29, 2025@08:44 ENTRY DATE: MAR 29, 2025@08:44:53 AUTHOR: AARON KENNEDY COSIGNER: URGENCY: STATUS: COMPLETED Reason for visit: Scheduled follow-up Chief complaint: Denies new concerns or complaints. HPI: PMH, see problem list 39 y/o male who presents to the medical clinic for his scheduled follow up visit. The purpose of the visit today is to follow up on the veterans chronic medical conditions. has accompanied to clinic with his spouse. History obtained from the and his significant other. Last PCP visit: 03/18/2024 Community Providers: -PCP: Dr. Esequiel Sargent, [facility] A[facility]. 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 Referred to private neurosurgery clinic in 2022. Based on his prior imaging has neurosurgery provider felt like the aneurysm was stable. He completed a follow- up CT scan in April 2024. Records in [facility]. Imaging showed postoperative changes from prior posterior fossa aneurysm clipping unchanged. Planning to follow-up with neurosurgery in February 2026. Reports complaints of weakness in his arms impacting his day to day function. Discussed referral to PT but the vet is seeking documentation only at this time. Also reports complaints of memory loss ongoing for several years but getting worse. Vet agreed to cognitive screening with [facility] to start. No intracranial abnormalities were noted on CT scan of head in April 2024. reports complaints of hearing loss. Agreed to schedule appointment with audiology for hearing evaluation. WHAT IS YOUR GOAL FOR TODAY? F/U chronic medical conditions SOURCE(S) OF HISTORY: -Patient PAST MEDICAL HISTORY: 1) Congenital arteriovenous malformation comment: 12/2007 surgery in [place] 2) Tinnitus 3) Pneumonia, organism unspecified comment: August 2010, received pneumovax vaccine comment: 02/20/11 rul and l [place], [place] 4) Sleep disturbances 5) Cerebral aneurysm, nonruptured (ICD-9-CM 437.3) 6) Adjustment disorder with depressed mood (SNOMED CT 74153745) 7) Pain of joint of knee (SNOMED CT 2702081592) 8) Vitamin D Deficiency (SCT 77781795) SURGICAL HISTORY: - aneurysm clip in 2007 - vasectomy 09/30/2024 FAMILY MEDICAL HISTORY: DM: father, sister, PGF, paternal uncle Mother (HTN), tumors in neck SOCIAL HISTORY: Nicotine: present user, smoked 1 PPD, x 15 years Alcohol: consumes ETOH socially Illicit Drugs: present use, MJ -Lives: w/ cousin Allergy: ADHESIVE TAPE Allergy list reviewed and remains current. MEDICATIONS: Active Outpatient Medications (including Supplies): No Medications Found MEDICATION RECONCILIATION: completed REVIEW OF SYSTEMS: See HPI for further details of positive complaints. All 10 systems reviewed and otherwise negative. PHYSICAL EXAMINATION: VITALS (most recent, as listed in the electronic record): Temperature: 97.6 F [36.4 C] (03/29/2025 08:34) BP: 120/83 (03/29/2025 08:34) Pulse: 78 (03/29/2025 08:34) Resp: 18 (03/29/2025 08:34) PulsOx: 97% (03/29/2025 08:34) Pain: 0 (03/29/2025 08:34) Weight: Measurement DT WEIGHT LB(KG)[BMI] 03/29/2025 08:34 175.7(79.70)[22] PHYSICAL EXAMINATION: General appearance: well-groomed, well-nourished, in [...] and texture, skin intact DATA REVIEW: HGA1C 5.5 % 03/18/2024 00:00 HGA1C 5.7 % 03/18/2023 09:40 === Lipid Panel: TRIGLYCERIDE 247 H mg/dL 03/18/2024 CHOLESTEROL 209 H mg/dL 03/18/2024 HDL(New) 54 mg/dL 03/18/2024 CALCULATED LDL 106 mg/dL 03/18/2024 === CMP: SODIUM 139 mEq/L 03/18/2024 POTASSIUM 4.9 mEq/L 03/18/2024 CHLORIDE 106 mEq/L 03/18/2024 UREA NITROGEN 16.6 mg/dL 03/18/2024 CREATININE 1.14 mg/dL 03/18/2024 CALCIUM 9.3 mg/dL 03/18/2024 PROTEIN 6.9 g/dL 03/18/2024 ALBUMIN 4.3 g/dL 03/18/2024 ALKALINE PHOSPHATASE 73 U/L 03/18/2024 ALT/SGPT 24 U/L 03/18/2024 AST/SGOT 28 U/L 03/18/2024 TOTAL BILIRUBIN 0.5 mg/dL 03/18/2024 CARBON DIOXIDE 25 mEq/L 03/18/2024 GLUCOSE 108 H mg/dL 03/18/2024 EGFR (CKD-EPI 2020) 85.5 03/18/2024 === CBC: WBC 4.7 10*3/uL 03/18/2024 00:00 RBC 4.62 10*6/uL 03/18/2024 00:00 HGB 14.3 g/dL 03/18/2024 00:00 HCT 42.9 % 03/18/2024 00:00 MCV 92.9 fL 03/18/2024 00:00 MCH 31.0 pg 03/18/2024 00:00 MCHC 33.3 g/dL 03/18/2024 00:00 RDW 12.2 % 03/18/2024 00:00 PLT 237 10*3/uL 03/18/2024 00:00 MPV 10.6 fL 03/18/2024 00:00 NEUTROPHILS, AUTO % 58 % 03/18/2024 00:00 LYMPHOCYTES, AUTO % 30 % 03/18/2024 00:00 MONOCYTES, AUTO % 8 % 03/18/2024 00:00 EOSINOPHILS, AUTO % 3 % 03/18/2024 00:00 BASOPHILS, AUTO % 1 % 03/18/2024 00:00 NEUTROPHILS, ABSOLUTE 2.72 10*3/uL 03/18/2024 00:00 LYMPHOCYTES, ABSOLUTE 1.42 10*3/uL 03/18/2024 00:00 MONOCYTES, ABSOLUTE 0.38 10*3/uL 03/18/2024 00:00 EOSINOPHILS, ABSOLUTE 0.13 10*3/uL 03/18/2024 00:00 BASOPHILS, ABSOLUTE 0.06 10*3/uL 03/18/2024 00:00 === Vitamin D: VITAMIN D, 25-HYDROXY 35.9 ng/mL 03/18/2024 00:00 VITAMIN D, 25-HYDROXY 10.8 L ng/mL 11/07/2022 06:00 === Micral: CREATuF: 42.8 (03/10/23 15:05) ASSESSMENT/PLAN: # Preventative Healthcare/Annual visit - routine healthcare, preventative screenings, and immunizations reviewed. # AVM/DUKES: - Discharged from neurology clinic. EEG was within normal limits. Epileptic medications not indicated at this time. Due for follow-up with neurosurgery in 02/2026 # Vit D Def: - No longer taking vitamin D3 supplement. Repeat labs. Will make further recommendations based on repeat results # Memory loss: - PCHMI consult placed for cognitive screening # Knee pain: - No overt complaints today # Tobacco Use: - [place] reports he started smoking again. Smokes 1 pack of cigarettes per day. Agreed to trial nicotine patch and lozenge for smoking cessation. Medication admin and side effects discussed. HM: AAA screen: defer d/t age Colorectal [...] Info COVID-19 (PFIZER), MRNA, LNP-S, * 03/18/2023 [facility]* <I> COVID-19 (PFIZER), MRNA, LNP-S, * 03/18/2024 No Site <I> PNEUMOCOCCAL CONJUGATE, UNSPECIF* 03/29/2025 [facility]* <I> clinical reminders completed; educated on continuing to avoid salt, conc sweets; benefits of continued exercise, reg PCP visits, routine eyes exams Plan of care has been discussed with including expected therapeutic benefits and potential side effects of prescribed medications and treatments. Current medication list has been reconciled with and updated accordingly. [place] was instructed to keep all scheduled appointments and to contact senior branch manager for any additional problems. [place] verbalizes understanding and is in agreement with the plan of care. RTC: Annually or sooner as needed I spent 29 minutes in records review, chart review, examination/assessment of patient, education, charting and time recorder. Follow-up Pos Alcohol - AT,M,N,P,PH,PS,R,S,T: Patient's AUDIT-C score was greater than or equal to 5; brief alcohol intervention is indicated. Shared concern that the patient may be drinking at unhealthy levels known to increase his/her risk of alcohol related health problems. Specifically the following were reviewed: High blood pressure, heart disease, liver disease, stroke The patient was advised/informed to drink within safe limits, which are no more than 2 drinks per day on average and no more than 4 drinks on any one day AND no more than 14 drinks per week. Will discuss again at next visit. Tobacco Use Follow-Up - AT,DE,M,N,P,PH,PS,RT,S: Patient was advised to stop smoking and/or using other tobacco products. Advised patient that a combination of behavioral counseling and FDA-approved cessation medications is the most effective way to ensure their success in stopping to smoke and/or using other tobacco products. The patient was not interested in additional information about behavioral counseling and other support strategies discussed. Informed patient that medications can help with cravings and withdrawal symptoms, and they greatly increase the chances of successfully stopping your tobacco use. The patient requested and was provided with a prescription for tobacco cessation medications. The patient uses tobacco within 30 minutes of waking up. RHS Screen - VS: RHS Screen Environmental Check Screening was not completed at this time due to: Another adult present /es/ AARON KENNEDY, MSN, AGNP-C NURSE PRACTITIONER Signed: 03/29/2025 13:09 AARON KENNEDY [facility] Mar 29, 2025 08:37 AM NURSING NOTE: LOCAL TITLE: V15 PACT FACE TO FACE NOTE STL STANDARD TITLE: NURSING NOTE DATE OF NOTE: MAR 29, 2025@08:37 ENTRY DATE: MAR 29, 2025@08:37:21 AUTHOR: HILDA COON EXP COSIGNER: URGENCY: STATUS: COMPLETED Provider Visit: Patient Identifiers : Full Name Date of Reason for visit: Established Follow-Up Mode of Arrival: Ambulatory Allergy Review: ADHESIVE TAPE JAN 17, 2011 (HISTORICAL) Symptoms: RASH Allergy list reviewed and remains current. Recent Vital Signs: Temperature: 97.6 F [36.4 C] (03/29/2025 08:34) Pulse: 78 (03/29/2025 08:34) Respiration: 18 (03/29/2025 08:34) B/P: 120/83 (03/29/2025 08:34) Pain: 0 (03/29/2025 08:34) Wt: 175.7 lb [79.70 kg] (03/29/2025 08:34) Ht: 74.5 in [189.2 cm] (03/29/2025 08:34) BMI: 22.3 POX: 97% (03/29/2025 08:34) PERSONAL HEALTH INVENTORY Notes: No data available for PHI note titles PERSONAL HEALTH INVENTORY - MAP: No data available for PHI MAP What matters most to you in your life right now? -- 's Response: family Would you like to discuss any personal problem, family problem, alcohol use, drug use, or a mental or emotional illness? No [facility] ([facility]), please select appointment type: Face to face: Yes- Done Contact provided Primary Care phone number and encouraged to call if any questions or concerns. Review that after hours nurse line [phone] and emergency room are available 21/04 for patient use. Contact verbalized good understanding. Suicide Screen - V: C-SSRS Screening Brown Suicide Severity Rating Scale (C-SSRS) screener 1. Over the past month, have you wished you were or wished you could go to sleep and not wake up? No 2. Over the past month, have you had any actual thoughts of killing yourself? No 3. Over the past month, have you been thinking about how you might do this? Response not required due to responses to other questions. 4. Over the past month, have you had these thoughts and had some intention of acting on them? Response not required due to responses to other questions. 5. Over the past month, have you started to work out or worked out the details of how to kill yourself? Response not required due to responses to other questions. 6. If yes, at any time in the past month did you intend to carry out this plan? Response not required due to responses to other questions. 7. In your lifetime, have you ever done anything, started to do anything, or prepared to do anything to end your life (for example, collected pills, obtained a gun, gave away valuables, went to the roof but didn't jump)? No 8. If YES, was this within the past 3 months? Response not required due to responses to other questions. Sexual Orientation - CP,L,N,P,PH,PS,S,U: The patient thinks of their sexual orientation as: Straight or Heterosexual Alcohol Use Screen (AUDIT-C) - V: Alcohol Screen: SCREEN FOR ALCOHOL (AUDIT-C) An alcohol screening test (AUDIT-C) was positive (score=5). 1. How often did you have a drink containing alcohol in the past year? Consider a drink to be a 12 ounce can or bottle of regular beer, 8 ounces of malt liquor, a 5 ounce glass of table wine, or a 1.5 ounce shot of liquor (like scotch, gin, or vodka). Monthly or less 2. How many drinks containing alcohol did you have on a typical day when you were drinking in the past year? Five or six drinks 3. How often did you have six or more drinks on one occasion in the past year? Monthly Licensed Independent Provider notified of positive screen and need for follow-up. Name of provider notified: Aaron Kennedy NP Depression Screening - V: Perform PHQ-2 A PHQ-2 screen was performed. The score was 0 which is a negative screen for depression. Over the past two weeks, how often have you been bothered by the following problems? 1. Little interest or pleasure in doing things Not at all 2. Feeling down, depressed, or hopeless Not at all Homelessness/Food Insecurity Screen - DI,L,N,P,PH,PS,S,U: In the past 2 months, have you [...] Not worried about housing near future [facility] [place] reports the following: Within the past 12 months, you worried whether your food would run out before you got money to buy more. Never true Within the past 12 months, the food you bought just didn't last and you didn't have money to get more. Never true Influenza Immunization - L,N,P,PH,U: No influenza vaccination was received during the recent influenza season. Learning Assessment: - * This patient's learning ABILITIES, BARRIERS to learning, CULTURAL and CAODAISM beliefs, and learning PREFERENCES were assessed. Following are findings of note: Patient reads well. Patient has the following hearing/auditory barrier(s) to consider when teaching: Hard of hearing. Adjustments made to address the identified barrier include: Write down and patient reads back instructions. Patient has the following speech barrier to consider when teaching: No speech barrier identified. LANGUAGE Patient reports that Swedish is preferred language for healthcare. Patient has the following language barrier to consider when teaching: No language barrier has been identified. Patient has the following vision barrier(s) to consider when teaching: The following barrier has been identified:, Requires glasses/contacts for reading Adjustments made to address the identified barrier include: Assure patient has glasses/contacts for reading., Large print material will be utilized. Patient has the following dexterity/mobility barrier(s) to consider when teaching: No dexterity/mobility barrier has been identified. Patient has the following cognitive/memory barrier(s) to consider when teaching: The following barrier(s) has been identified., Has difficulty in remembering instructions/names Adjustments made to address the identified barrier include: Repeat instructions as needed. Patient has the following emotional/psychological barrier(s) to consider when teaching: The following barrier has been identified., Otheranxiety PTSD Patient has the following social support deficit(s) to consider when teaching: No social support issues have been identified. Patient reports learning preference is to refer to handouts. Patient reports learning preference is attending one-to-one or group demonstrations. Patient reports learning preference is looking at pictures or viewing videos. Pneumococcal Conjugate Vaccine (PCV15/PCV20/PCV21) - L,N,P,PH,U: Refuses PCV vaccine Immunization: PNEUMOCOCCAL CONJUGATE, UNSPECIFIED FORMULATION Refusal Reason: PATIENT DECISION Patient refuses all immunization(s) in the PneumoPCV group Date Documented: 03/29/25 08:44 Tobacco Use Screening - AT,DE,L,M,N,P,PH,PS,RT,S,U: The patient smokes cigarettes every day. The patient has never used other types of tobacco. /jese/ HILDA COON LICENSED PRACTICAL NURSE Signed: 03/29/2025 08:45 HILDA COON [facility]
--- NOTE | 2025-04-09 13:21 | ED_ITS ---
HPI - Dental/Oral General Chief complaint: Dental/Oral Stated complaint: dental pain Time Seen by Provider: 04/09/25 13:21 Source: patient Mode of arrival: ambulatory Limitations: no limitations History of Present Illness HPI Narrative: this is a 39-year-old male with a history of tooth decay and has a an appointment with a dentist but presents with some swelling and discomfort of his right upper molar area with a cracked tooth, has a tender left submandibular gland with no fever chills no shortness of breath. MD Complaint: tooth pain Teeth map: 2 1. Cracked tooth the surrounding gum inflammation Onset (ago): day(s) Duration: constant Severity: mild Severity scale (1-10): 3 Relieving factors: NSAIDs Exacerbating factors: chewing Context: history of dental caries Associated symptoms: gum swelling Related Data Allergies Allergy/AdvReac Type Severity Reaction Status Date / Time No Known Allergies Allergy Verified 04/09/25 13:17 Review of Systems 2 Review of Systems: All systems reviewed & are unremarkable except as noted in HPI and below PMFSH Past Medical History Medical History AVM (arteriovenous malformation) brain Seizures AVM (arteriovenous malformation) History of stroke Exam 2 Const: General: healthy appearing and no acute distress Nutritional Appearance: well nourished Orientation/consciousness: patient oriented x3 Limitations: no limitations Neck: Neck: normal visual inspection and lymphadenopathy Chest: Chest palpation & inspection: normal inspection of the chest Resp: Effort & Inspection: normal respiratory effort Auscultation: clear to auscultation bilaterally Cardio: Rate: regular rate Rhythm: regular rhythm GI: GI Palp: Yes Soft to palpation Auscultation: normal bowel sounds Skin: Rashes: no rashes Course Course Emergency Course: Administered a dose of p.o. amoxicillin 500mg, and will send a prescription to patient's pharmacy, patient advised to take Tylenol or Motrin and follow with his dentist. Vital Signs Vital signs: Vital Signs Temperature 36.7 C 04/09/25 13:14 Pulse Rate 82 04/09/25 13:14 Respiratory Rate 16 04/09/25 13:14 Blood Pressure 135/83 04/09/25 13:14 Pulse Oximetry 98 04/09/25 13:14 Oxygen Delivery Room Air 04/09/25 13:14 Temperature 36.7 C 04/09/25 13:14 Pulse Rate 82 04/09/25 13:14 Respiratory Rate 16 04/09/25 13:14 Blood Pressure 135/83 04/09/25 13:14 Pulse Oximetry 98 04/09/25 13:14 Oxygen Delivery Room Air 04/09/25 13:14 Critical Care Time Critical Care Time Critical Care Time: No Discharge Plan Discharge Clinical Impression: Toothache, Dental caries, Dental abscess Patient Disposition: Home Condition: Stable Instructions: Antibiotic Form, Dental Abscess (ED), Toothache (ED) Additional Instructions: Take antibiotics as prescribed and follow with primary care physician /dentist for further evaluation and treatment. Patient Language: Afghan Prescriptions: New amoxicillin 500 mg tablet 500 mg PO TID Qty: 30 0RF No Action amoxicillin-pot clavulanate 875-125 mg tablet 1 tablet PO BID 10 Days Qty: 20 0RF clindamycin HCl 300 mg capsule 300 mg PO TID 10 Days Qty: 30 0RF ibuprofen 800 mg tablet 800 mg PO TID PRN (Reason: pain) Qty: 30 0RF orphenadrine citrate 100 mg tablet extended release 100 mg PO BID PRN (Reason: pain) Qty: 20 0RF methylprednisolone [Medrol (Yariel)] 4 mg tablets,dose pack See Rx Instructions .ROUTE .COMPLEX Qty: 21 0RF Rx Instructions: orally per package directions clindamycin HCl 300 mg capsule 300 mg PO Q8H Qty: 20 0RF amoxicillin-pot clavulanate [Augmentin] 500-125 mg tablet 1 tablet PO TID Qty: 30 0RF Follow-up/Referrals: Homar,MARYJANE Iraheta [Primary Care Provider] - Stand Alone Forms: Work/School Release IP
--- OUTSIDE RECORDS SUMMARY | 2025-04-09 13:22 | XMS_ITS | Encounter Summary ---
Author Name [facility] Address [address] [place] [address] Care Team Providers Care Fur Finisher Name Role Phone AARON KENNEDY Primary Care [...] Palacios's Name Patient's Relationship to Policy Palacios [facility] 2018 PRIME Sep 29, 2017 RETIREE [id number] CHERISEMARCY BellDY PATIENT [facility] 2018 [place] RE Sep 29, 2017 PRIME [id number] RICK CUMMINGS PATIENT Selected Encounter This section includes the information on record at [place] for the Encounter. Date/Time Encounter Type Encounter Description Reason Pro vider Source Sep 09, 2024 01:47 PM Outpatient Encounter GENERAL INTERNAL MEDICINE [facility] Encounter Template Text not used by [place] Social History: Smoking Status (Most current) and Tobacco Use (All prior to encounter date) This section includes the most current, and the historical, smoking and tobacco- related health factors from the [place] facility where the Encounter took place. Current Smoking Status This section includes the most current smoking, or tobacco-related health factor, from the [facility] facility where the [facility]counter took place. Date/Time Current Smoking Status Comment Bereket viveros Nov 06, 2022 11:27 PM [place]-VAAES TOBACCO U SE CURRENT NRT DECLINE [facility] Tobacco Use History This section includes a history of the smoking, or tobacco-related health factors, that were collected on or before the date of the Encounter. The data comes from the [facility] where the Encounter took place. Date/Time Smoking Status/Tobacco Use Comment F acility Nov 06, 2022 11:25 PM ORYX ADMIT TOBACCO SCREEN YES [facility] Nov 06, 2022 11:25 PM ORYX ADMIT TOBACCO USE CIGS GR 5D [facility] Nov 06, 2022 11:25 PM ORYX DAILY TOBACCO [place] ANALYST RECEIVED [facility] Nov 06, 2022 11:25 PM ORYX DAILY TOBACCO MEDS ORDERED [facility] Encounter Notes: All associated encounter notes [...] Facility: Aug Method of Contact: Notified from [facility] worklist Notification ID: [id number] [facility] Referral #: [id number] Clinical Review [facility] Name: Hospital: [facility] Address: [address] [place] [address]: [place] State: [place] Zip Code: [id number] [facility] Point of Contact: Name: Nahed Jacobsen Chief complaint: Tooth Pain Primary Diagnosis: Disposition Discharged Date of discharge: Aug Discharge to home Records req'd by fax. /jese/ LETICIA JONES ADVANCED LUMITE INJECTOR Signed: 09/09/2024 13:49 Receipt Acknowledged By: 09/09/2024 15:44 /es/ AARON KENNEDY, MSN, AGNP-C NURSE PRACTITIONER 09/09/2024 14:14 /es/ FREDY DOOLEY, RN MSN REGISTERED NURSE 09/13/2024 ADDENDUM STATUS: COMPLETED Records r/t this episode of care sent to [facility] for scanning. /jese/ LETICIA JONES ADVANCED LUMITE INJECTOR Signed: 09/13/2024 16:59 LETICIA JONES [facility]
[2025-04-09] MEDS: AMOXICILLIN 500 MG CAPSULE PO (13:24)
--- OUTSIDE RECORDS SUMMARY | 2025-04-09 13:27 | XMS_ITS | Continuity of Care Document ---
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 It does not include entries that were removed or entered in error. Problem Status Onset Date Problem Type Date of Resolution Comments Source Adjustment disorder with depressed mood (SNOMED CT 21603196) Active Condition [facility] Cerebral aneurysm, nonruptured (ICD-9-CM 437.3) Active Condition [facility] Congenital arteriovenous malformation Active Condition Jan 17, 2011 Entered By: CHIOMA QUAN Comment: 12/2007 surgery in [facility] Diplopia * (ICD-9-CM 368.2) Active Condition [facility] Myopia Active Condition [facility] Pain of joint of knee (SNOMED CT 3830227716) Active Condition [facility] Pneumonia, organism unspecified Active Condition Jan 17, 2011 Entered By: CHIOMA QUAN Comment: August 2010, received pneumovax vaccineMar 08, 2011 Entered By: CHIOMA QUAN Comment: 02/20/11 rul and rml [facility] Sleep disturbances Active Condition [facility] Tinnitus Active Condition [facility] Vitamin D Deficiency (SCT 32423884) Active Condition [facility] Chest Pain * (ICD-9-CM 786.50) Inactive Condition 03/18/2023 [facility] Cyst, ganglion Inactive Condition 03/18/2023 Jan 17, 2011 Entered By: CHIOMA QUAN Comment: right wrist [facility] Encounters for unspecified Administrative Purpose (ICD-9-CM V68.9) Inactive Condition 03/18/2023 [facility] NEUTROPENIA, unspecified Inactive Condition 03/18/2023 [facility] Vitamin D Deficiency Inactive Condition 03/18/2023 [facility] visit for: services physical [...] DoD visit for: administrative purpose Inactive Condition [facility] Patient Counseling: Active Condition Do D [...] Condition DoD difficulty swallowing (dysphagia) Active Condition [facility] Patient Counseling: Inquiry & Counseling Active Condition DoD INTRACEREBRAL HEMORRHAGE Active Condition DoD BACTEREMIA Active Condition DoD ARTERIOVENOUS MALFORMATION (CANOE BUILDER) Active Condition [facility] Dietary Counseling Pertaining To Specific Condition Inactive Condition [facility] visit for: screening exam pulmonary tuberculosis [...] medical exam w/o abnormal findings Active Diagnosis [facility] Diagnosis: ICD-10-CM Q27.30 Arteriovenous malformation, site unspecified Active Diagnosis [facility] Medications Combined list of outpatient medications [...] WHILE WEARING PATCH. TRANSD ERMAL ACTIVE 03/30/2026 [id number] AARON KENNEDY 2024 28 [facility] NICOTINE POLACRILEX 2MG MINI LOZENGE DISSOLVE 1 LOZENGE BY MOUTH EVERY 4 HOURS NEEDED .DO NOT SMOKE WHILE USING THIS MEDICATI ON. ORAL ACTIVE 03/30/2026 [id number] 5 AARON KENNEDY 2024 162 [facility] Allergies, Adverse Reactions, Alerts Combined list of allergies 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 It does not include entries that were removed or entered in error. Substance Category Reaction Severity Reaction type Status Date Reported Comments Source ADHESIVE TAPE Propensity to adverse reaction (finding) Eruption active 1 [facility] OTHER Drug allergy (disorder) Unknown active 8 [facility] Immunizations Combined list of available immunizations from the 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 Immunization Series Date Given Administered By Site Reaction Lot Number CVX Code Drug Vertical Borer Status Comments Source PNEUMOCOCCAL POLYSACCHARID E PPV23 2022 BRIEN PIERCE H R RIGHT DELTO ID [id number] 33 complet ed [facility]MIN[facility]E [facility] AT [facility] TDAP 2022 BRIEN PIERCE H R LEFT DELTO ID [id number] 115 complet ed [facility] AT [facility] TDAP 5 2017 115 complet ed HISTORICA L INFORMATI ON - FROM OTHER [facility], [facility] INFLUENZA, UNSPECIFIED FORMULATION 2011 88 complet ed [facility] INFLUENZA, UNSPECIFIED FORMULATION 2010 88 complet ed [facility] tuberculin skin test; purified protein derivative solution, intradermal 0 2009 KAREEN ARMENDARIZ [id number] 96 [place] [facility]) complet ed tuberculi n skin test; purified protein derivativ e solution, intraderm al DoD tuberculin skin test; purified protein derivative solution, intradermal 1 2009 JAZZ DAVIS [id number] 96 [place] [facility] ([facility]) complet ed tuberculi n skin test; purified protein derivativ e solution, intraderm al DoD tuberculin skin test; purified protein derivative solution, intradermal 1 2009 CIERA FOREMAN [id number] 96 [place] [facility] ([facility]) complet ed tuberculi n skin test; purified protein derivativ e solution, intraderm al DoD tuberculin skin test; purified protein derivative solution, intradermal 1 2009 WILTON SILVA [id number] 96 [facility] ([facility]) complet ed tuberculi n skin test; purified protein derivativ e solution, intraderm al DoD typhoid Vi capsular polysaccharid e vaccine 1 2009 WILTON SILVA [id number] [facility]) complet ed typhoid Vi capsular polysacch aride vaccine DoD Novel Influenza-H1N 1-09, live virus for nasal administratio n 1 2009 WILTON SILVA [id number] [employer] (MED) complet ed Novel Influenza -F4D6-98, live virus for nasal administr ation DoD influenza virus vaccine, live, attenuated, for intranasal use 0 2008 UNK 111 Unknown (UNK) comple t ed influenza virus vaccine, live, attenuate d, for intranasa l use DoD influenza virus vaccine, live, attenuated, for intranasal use 1 2008 SERA PRASAD [id number] 111 [employer] (MED) complet ed influenza virus vaccine, live, attenuate d, for intranasa l use DoD tuberculin skin test; purified protein derivative solution, intradermal 1 2007 KAREEN ARMENDARIZ [id number] [place] (PD) complet ed tuberculi n skin test; purified protein derivativ e solution, intraderm al DoD influenza virus vaccine, live, attenuated, for intranasal use 1 2007 KAREEN ARMENDARIZ [id number] 111 [employer] (MED) complet ed influenza virus vaccine, live, attenuate d, for intranasa l use DoD influenza virus vaccine, unspecified formulation 0 2006 UNK 88 Unknown (UNK) comple t ed influenza virus vaccine, unspecifi ed formulati on DoD tuberculin skin test; purified protein derivative solution, intradermal 1 2006 JAZZ DAVIS [id number] 96 [place] (PD) complet ed tuberculi n skin test; purified protein derivativ e solution, intraderm al DoD influenza virus vaccine, live, attenuated, for intranasal use 1 2006 PASQUALE SINHA [id number] 111 [employer] (MED) complet ed influenza virus vaccine, live, attenuate d, for intranasa l use DoD hepatitis B vaccine, adult dosage 3 2006 UNK 43 Unknown (UNK) comple t ed hepatitis B vaccine, adult dosage DoD hepatitis A and hepatitis B vaccine 3 2006 ROQUE WHITNEY [id number] [address] [place] [address] (SKB) complet ed hepatitis A and hepatitis [...] HISTORICA L INFORMATI ON - FROM OTHER [facility], [facility] HEP B, ADOLESCENT OR PEDIATRIC 2 1997 08 complet ed HISTORICA L INFORMATI ON - FROM OTHER REGISTRY, [facility] HEP B, ADOLESCENT OR PEDIATRIC 1 1997 08 complet ed HISTORICA L INFORMATI ON - FROM OTHER REGISTRY, [facility] DTP 4 1991 01 complet ed HISTORICA L INFORMATI ON - FROM OTHER REGISTRY, [facility] HIB, UNSPECIFIED FORMULATION 1 1991 17 complet ed HISTORICA L INFORMATI ON - FROM OTHER REGISTRY, [facility] MMR 2 1991 03 complet ed HISTORICA L INFORMATI ON - FROM OTHER REGISTRY, [facility] TRIVALENT OPV 4 1991 02 complet ed HISTORICA L INFORMATI ON - FROM OTHER REGISTRY, [facility] DTP 3 1989 01 complet ed HISTORICA L INFORMATI ON - FROM OTHER REGISTRY, [facility] TRIVALENT OPV 3 1989 02 complet ed HISTORICA L INFORMATI ON - FROM OTHER REGISTRY, [facility] MMR 1 1988 03 complet ed HISTORICA L INFORMATI ON - FROM OTHER REGISTRY, [facility] DTP 3 1987 01 complet ed HISTORICA L INFORMATI ON - FROM OTHER REGISTRY, [facility] TRIVALENT OPV 3 1987 02 complet ed HISTORICA L INFORMATI ON - FROM OTHER REGISTRY, [facility] DTP 2 1987 complet ed HISTORICA L INFORMATI ON - FROM OTHER REGISTRY, [facility] TRIVALENT OPV 2 1987 02 complet ed HISTORICA L INFORMATI ON - FROM OTHER REGISTRY, [facility] DTP 1 1987 01 complet ed HISTORICA L INFORMATI ON - FROM OTHER REGISTRY, [facility] TRIVALENT OPV 1 1987 02 complet ed HISTORICA L INFORMATI ON - FROM OTHER REGISTRY, [facility] Results Combined list of recent chemistry, hematology [...] Mar 29, 2025 08:53 AM Reporting Lab: [facility] [address] [place] [phone] Performing Lab: [phone] [place] [address] [facility] CBC ERYTHROCYTES [#/VOLUME] IN BLOOD BY AUTOMATED COUNT 4.83 10*6/u L 4.10 - 5.70 03/29 Specimen Type: BLOOD No comment entered. Ordering Provider: Nicanor KENNEDY Report Released Date/Time: Mar 29, 2025 08:53 AM Reporting Lab: [address] [address] Performing Lab: [address] [facility] CBC HEMOGLOBIN [MASS/VOLUME ] IN BLOOD 14.9 g/dL 13.1 - 16.8 03/29 Specimen Type: BLOOD No comment entered. Ordering Provider: Nicanor KENNEDY Report Released Date/Time: Mar 29, 2025 08:53 AM Reporting Lab: [address] [address] Performing Lab: [place] [id number] [facility] CBC HEMATOCRIT [VOLUME FRACTION] OF BLOOD 44.7 38.2 - 48.4 03/29 Specimen Type: BLOOD No comment entered. Ordering Provider: Nicanor KENNEDY Report Released Date/Time: Mar 29, 2025 08:53 AM Reporting Lab: [address] [address] Performing Lab: [address] [phone] [facility] CBC MCV [ENTITIC VOLUME] BY AUTOMATED COUNT 92.5 fL 80.0 - 100.0 03/29 Specimen Type: BLOOD No comment entered. Ordering Provider: Nicanor KENNEDY Report Released Date/Time: Mar 29, 2025 08:53 AM Reporting Lab: [address] [address] Performing Lab: [facility] [address] [facility] [address] [facility] CBC MCH [ENTITIC MASS] BY AUTOMATED COUNT 30.8 pg 27.0 - 34.0 03/29 Specimen Type: BLOOD No comment entered. Ordering Provider: Nicanor KENNEDY Report Released Date/Time: Mar 29, 2025 08:53 AM Reporting Lab: [address] [address] Performing Lab: [address] [address] [facility] CBC MCHC [MASS/VOLUME ] BY AUTOMATED COUNT 33.3 g/dL 33.0 - 36.0 03/29 Specimen Type: BLOOD No comment entered. Ordering Provider: Nicanor KENNEDY Report Released Date/Time: Mar 29, 2025 08:53 AM Reporting Lab: [address] [address] Performing Lab: [address] [address] [facility] CBC PLATELETS [#/VOLUME] IN BLOOD BY AUTOMATED COUNT 223 10*3/u L 150 - 400 03/29 Specimen Type: BLOOD No comment entered. Ordering Provider: Nicanor KENNEDY Report Released Date/Time: Mar 29, 2025 08:53 AM Reporting Lab: [address] [address] Performing Lab: [address] [phone] [facility] CBC PLATELET MEAN VOLUME [ENTITIC VOLUME] IN BLOOD BY AUTOMATED COUNT 10.6 fL 7.5 - 11.2 03/29 Specimen Type: BLOOD No comment entered. Ordering Provider: Nicanor KENNEDY Report Released Date/Time: Mar 29, 2025 08:53 AM Reporting Lab: [address] [address] Performing Lab: [address] [place] [address] [facility] CBC ERYTHROCYTE DISTRIBUTION WIDTH [RATIO] BY AUTOMATED COUNT 12.0 11.8 - 15.1 03/29 Specimen Type: BLOOD No comment entered. Ordering Provider: Nicanor KENNEDY Report Released Date/Time: Mar 29, 2025 08:53 AM Reporting Lab: [facility] [address] [place] [phone] Performing Lab: [facility] [address] [place] [phone] [facility] CBC LYMPHOCYTES/ 100 LEUKOCYTES IN BLOOD BY AUTOMATED COUNT 37 03/29 Specimen Type: BLOOD No comment entered. Ordering Provider: Nicanor KENNEDY Report Released Date/Time: Mar 29, 2025 08:53 AM Reporting Lab: [address] [address] Performing Lab: [place] [phone] [facility] CBC MONOCYTES/10 0 LEUKOCYTES IN BLOOD BY AUTOMATED COUNT 10 03/29 Specimen Type: BLOOD No comment entered. Ordering Provider: Nicanor KENNEDY Report Released Date/Time: Mar 29, 2025 08:53 AM Reporting Lab: [address] [address] Performing Lab: [address] [phone] [facility] CBC NEUTROPHILS/ 100 LEUKOCYTES IN BLOOD BY AUTOMATED COUNT 48 03/29 Specimen Type: BLOOD No comment entered. Ordering Provider: Nicanor KENNEDY Report Released Date/Time: Mar 29, 2025 08:53 AM Reporting Lab: [place] [phone] Performing Lab: [place] [phone] [facility] CBC EOSINOPHILS/ 100 LEUKOCYTES IN BLOOD BY AUTOMATED COUNT 4 03/29 Specimen Type: BLOOD No comment entered. Ordering Provider: Nicanor KENNEDY Report Released Date/Time: Mar 29, 2025 08:53 AM Reporting Lab: [facility] [address] [place], [place] [phone] Performing Lab: [facility] [address] [place] [phone] [place] [address] [facility] CBC BASOPHILS/10 0 LEUKOCYTES IN BLOOD BY AUTOMATED COUNT 1 03/29 Specimen Type: BLOOD No comment entered. Ordering Provider: Nicanor KENNEDY Report Released Date/Time: Mar 29, 2025 08:53 AM Reporting Lab: [facility] [address] [place], [place] [phone] Performing Lab: [place] [phone] [facility] CBC LYMPHOCYTES [#/VOLUME] IN BLOOD BY AUTOMATED COUNT 1.99 10*3/u L 0.77 - 4.50 03/29 Specimen Type: BLOOD No comment entered. Ordering Provider: Nicanor KENNEDY Report Released Date/Time: Mar 29, 2025 08:53 AM Reporting Lab: [facility] [address] [place], [place] [phone] Performing Lab: [facility] [address] [place], [place] [phone] [address] [facility] CBC MONOCYTES [#/VOLUME] IN BLOOD BY AUTOMATED COUNT 0.52 10*3/u L 0.19 - 0.80 03/29 Specimen Type: BLOOD No comment entered. Ordering Provider: Nicanor KENNEDY Report Released Date/Time: Mar 29, 2025 08:53 AM Reporting Lab: [facility] [address] [place] [phone] Performing Lab: [place] [phone] [facility] CBC NEUTROPHILS [#/VOLUME] IN BLOOD BY AUTOMATED COUNT 2.62 10*3/u L 2.10 - 8.00 03/29 Specimen Type: BLOOD No comment entered. Ordering Provider: Nicanor KENNEDY Report Released Date/Time: Mar 29, 2025 08:53 AM Reporting Lab: [facility] [address] [place] [phone] Performing Lab: [address] [phone] [place] [address] [facility] CBC EOSINOPHILS [#/VOLUME] IN BLOOD BY AUTOMATED COUNT 0.23 10*3/u L 0.00 - 0.60 03/29 Specimen Type: BLOOD No comment entered. Ordering Provider: Nicanor KENNEDY Report Released Date/Time: Mar 29, 2025 08:53 AM Reporting Lab: [place] [phone] Performing Lab: [address] [phone] [facility] CBC BASOPHILS [#/VOLUME] IN BLOOD BY AUTOMATED COUNT 0.07 10*3/u L 0.00 - 0.20 03/29 Specimen Type: BLOOD No comment entered. Ordering Provider: Nicanor KENNEDY Report Released Date/Time: Mar 29, 2025 08:53 AM Reporting Lab: [place] [phone] Performing Lab: [place] [phone] [place] [address] [facility]OC COMPREHENSI VE METABOLIC PANEL CREATININE [MASS/VOLUME ] IN SERUM OR PLASMA 0.94 mg/dL 0.7 - 1.3 03/29 Specimen Type: PLASMA Comment: No hemolysis noted. Ordering Provider: Nicanor KENNEDY Report Released Date/Time: Mar 29, 2025 08:53 AM Reporting Lab: [address] [phone] Performing Lab: [address] [phone] [place] [address] [facility] COMPREHENSI VE METABOLIC PANEL UREA NITROGEN [MASS/VOLUME ] IN SERUM OR PLASMA 16.7 mg/dL 9.0 - 25.0 03/29 Specimen Type: PLASMA Comment: No hemolysis noted. Ordering Provider: Nicanor KENNEDY Report Released Date/Time: Mar 29, 2025 08:53 AM Reporting Lab: [facility] [address] [place] [phone] Performing Lab: [facility] [address] [place] [phone] [facility] COMPREHENSI VE METABOLIC PANEL GLUCOSE [MASS/VOLUME ] IN SERUM OR PLASMA 97 mg/dL 72 - 99 03/29 Specimen Type: PLASMA Comment: No hemolysis noted. Ordering Provider: Nicanor KENNEDY Report Released Date/Time: Mar 29, 2025 08:53 AM Reporting Lab: [facility] [address] [place], [place] [phone] Performing Lab: [facility] [address] [place] [phone] [facility] COMPREHENSI VE METABOLIC PANEL SODIUM [MOLES/VOLUM E] IN SERUM OR PLASMA 139 meq/L 136 - 145 03/29 Specimen Type: PLASMA Comment: No hemolysis noted. Ordering Provider: Nicanor KENNEDY Report Released Date/Time: Mar 29, 2025 08:53 AM Reporting Lab: [facility] [address] [place] [phone] Performing Lab: [facility] [address] [place] [phone] [facility] COMPREHENSI VE METABOLIC PANEL POTASSIUM [MOLES/VOLUM E] IN SERUM OR PLASMA 4.0 meq/L 3.5 - 5 03/29 Specimen Type: PLASMA Comment: No hemolysis noted. Ordering Provider: Nicanor KENNEDY Report Released Date/Time: Mar 29, 2025 08:53 AM Reporting Lab: [facility] [address] [place] [phone] Performing Lab: [facility] [address] [place] [phone] [facility] COMPREHENSI VE METABOLIC PANEL CHLORIDE [MOLES/VOLUM E] IN SERUM OR PLASMA 106 meq/L 98 - 107 03/29 Specimen Type: PLASMA Comment: No hemolysis noted. Ordering Provider: Nicanor KENNEDY Report Released Date/Time: Mar 29, 2025 08:53 AM Reporting Lab: [facility] [address] [place], [place] [phone] Performing Lab: [facility] [address] [place] [phone] [facility] COMPREHENSI VE METABOLIC PANEL CARBON DIOXIDE, TOTAL [MOLES/VOLUM E] IN SERUM OR PLASMA 24 meq/L 22 - 31 03/29 Specimen Type: PLASMA Comment: No hemolysis noted. Ordering Provider: Nicanor KENNEDY Report Released Date/Time: Mar 29, 2025 08:53 AM Reporting Lab: [place] [phone] Performing Lab: [place] [phone] [facility] COMPREHENSI VE METABOLIC PANEL CALCIUM [MASS/VOLUME ] IN SERUM OR PLASMA 9.1 mg/dL 8.4 - 10.4 03/29 Specimen Type: PLASMA Comment: No hemolysis noted. Ordering Provider: Nicanor KENNEDY Report Released Date/Time: Mar 29, 2025 08:53 AM Reporting Lab: [facility] [address] [place], [place] [phone] Performing Lab: [phone] [place] [address] [facility] COMPREHENSI VE METABOLIC PANEL PROTEIN [MASS/VOLUME ] IN SERUM OR PLASMA 7.2 g/dL 6 - 8.6 03/29 Specimen Type: PLASMA Comment: No hemolysis noted. Ordering Provider: Nicanor KENNEDY Report Released Date/Time: Mar 29, 2025 08:53 AM Reporting Lab: [facility] [address] [place], [place] [phone] Performing Lab: [facility] [address] [place] [phone] [facility] COMPREHENSI VE METABOLIC PANEL ALBUMIN [MASS/VOLUME ] IN SERUM OR PLASMA 4.5 g/dL 3.4 - 5 03/29 Specimen Type: PLASMA Comment: No hemolysis noted. Ordering Provider: Nicanor KENNEDY Report Released Date/Time: Mar 29, 2025 08:53 AM Reporting Lab: [facility] [address] [place], [place] [phone] Performing Lab: [facility] [address] [place] [phone] [place] [address] [facility] COMPREHENSI VE METABOLIC PANEL BILIRUBIN.TO ANTONI [MASS/VOLUME ] IN SERUM OR PLASMA 0.3 mg/dL 0.2 - 1.2 03/29 Specimen Type: PLASMA Comment: No hemolysis noted. Ordering Provider: Nicanor KENNEDY Report Released Date/Time: Mar 29, 2025 08:53 AM Reporting Lab: [place] [id number] Performing Lab: [address] [phone] [place] [address] [facility] COMPREHENSI VE METABOLIC PANEL ALKALINE PHOSPHATASE [ENZYMATIC ACTIVITY/VOL UME] IN SERUM OR PLASMA 83 U/L 40 - 150 03/29 Specimen Type: PLASMA Comment: No hemolysis noted. Ordering Provider: Nicanor KENNEDY Report Released Date/Time: Mar 29, 2025 08:53 AM Reporting Lab: [facility] [address] [place], [place] [phone] Performing Lab: [address] [phone] [place] [address] [facility]OC COMPREHENSI VE METABOLIC PANEL ASPARTATE AMINOTRANSFE RASE [ENZYMATIC ACTIVITY/VOL UME] IN SERUM OR PLASMA 31 U/L 5 - 34 03/29 Specimen Type: PLASMA Comment: No hemolysis noted. Ordering Provider: Nicanor KENNEDY Report Released Date/Time: Mar 29, 2025 08:53 AM Reporting Lab: [facility] [address] [place], [place] [phone] Performing Lab: [facility] [address] [place] [phone] [facility] COMPREHENSI VE METABOLIC PANEL ALANINE AMINOTRANSFE RASE [ENZYMATIC ACTIVITY/VOL UME] IN SERUM OR PLASMA 26 U/L 8 - 40 03/29 Specimen Type: PLASMA Comment: No hemolysis noted. Ordering Provider: Nicanor KENNEDY Report Released Date/Time: Mar 29, 2025 08:53 AM Reporting Lab: [facility] [address] [place] [phone] Performing Lab: [address] [phone] [facility] COMPREHENSI VE METABOLIC PANEL GLOMERULAR FILTRATION RATE/1.73 SQ M.PREDICTED [VOLUME RATE/AREA] IN SERUM, PLASMA OR BLOOD BY CREATININE-B ASED FORMULA (CKD-EPI 2020) 107.1 60 03/29 Specimen Type: PLASMA Comment: No hemolysis noted. Ordering Provider: Nicanor KENNEDY Report Released Date/Time: Mar 29, 2025 08:53 AM Reporting Lab: [address] [address] Performing Lab: [address] [phone] [facility] HGA1C HEMOGLOBIN A1C/HEMOGLOB IN.TOTAL IN BLOOD 5.9 4.0 - 6.0 03/29 Specimen Type: BLOOD No comment entered. Ordering Provider: Nicanor KENNEDY Report Released Date/Time: Mar 29, 2025 08:53 AM Reporting Lab: [address] [address] Performing Lab: [address] [phone] [facility] LIPID PANEL (STL) CHOLESTEROL [MASS/VOLUME ] IN SERUM OR PLASMA 199 mg/dL 0 - 200 03/29 Specimen Type: PLASMA Comment: No hemolysis noted. Ordering Provider: Nicanor KENNEDY Report Released Date/Time: Mar 29, 2025 08:53 AM Reporting Lab: [address] [address] Performing Lab: [address] [phone] [facility] LIPID PANEL (STL) TRIGLYCERIDE [MASS/VOLUME ] IN SERUM OR PLASMA 196 mg/dL 0 - 150 03/29 H Specimen Type: PLASMA Comment: No hemolysis noted. Ordering Provider: Nicanor KENNEDY Report Released Date/Time: Mar 29, 2025 08:53 AM Reporting Lab: [address] [address] Performing Lab: [place] [phone] [facility] LIPID PANEL (STL) CHOLESTEROL IN LDL [MASS/VOLUME ] IN SERUM OR PLASMA BY CALCULATION 119 mg/dL 03/29 Specimen Type: PLASMA Comment: No hemolysis noted. Ordering Provider: Nicanor KENNEDY Report Released Date/Time: Mar 29, 2025 08:53 AM Reporting Lab: [place] [address] Performing Lab: [place] [id number] [facility] LIPID PANEL (STL) CHOLESTEROL IN HDL [MASS/VOLUME ] IN SERUM OR PLASMA 41 mg/dL 40 03/29 Specimen Type: PLASMA Comment: No hemolysis noted. Ordering Provider: Nicanor KENNEDY Report Released Date/Time: Mar 29, 2025 08:53 AM Reporting Lab: [place] [address] Performing Lab: [place] [id number] [facility] TSH W/ REFLEX FT4 (STL) THYROTROPIN [UNITS/VOLUM E] IN SERUM OR PLASMA 1.606 u[IU]/ mL 0.47 - 5 03/29 Specimen Type: PLASMA No comment entered. Ordering Provider: Nicanor KENNEDY Report Released Date/Time: Mar 29, 2025 08:53 AM Reporting Lab: [address] [address] Performing Lab: [place] [id number] [place] [address] [facility] VITAMIN D, 25-HYDROXY 25-HYDROXYVI TAMIN D3 [MASS/VOLUME ] IN SERUM OR PLASMA 37.6 ng/mL 30 - 96 03/29 Specimen Type: SERUM No comment entered. Ordering Provider: Nicanor KENNEDY Report Released Date/Time: Mar 29, 2025 08:53 AM Reporting Lab: [place] [phone] Performing Lab: [place] [phone] [facility] COMPREHENSI VE METABOLIC PANEL CREATININE [MASS/VOLUME ] IN SERUM OR PLASMA 1.14 mg/dL 0.7 - 1.3 03/18 Specimen Type: PLASMA Comment: No hemolysis noted. Ordering Provider: Nicanor KENNEDY Report Released Date/Time: Mar 18, 2024 10:55 AM Reporting Lab: [place] [address] Performing Lab: [address] [phone] [place] [address] [facility]OC COMPREHENSI VE METABOLIC PANEL UREA NITROGEN [MASS/VOLUME ] IN SERUM OR PLASMA 16.6 mg/dL 9.0 - 25.0 03/18 Specimen Type: PLASMA Comment: No hemolysis noted. Ordering Provider: Nicanor KENNEDY Report Released Date/Time: Mar 18, 2024 10:55 AM Reporting Lab: [place] [phone] Performing Lab: [phone] [place] [address] [facility]OC COMPREHENSI VE METABOLIC PANEL GLUCOSE [MASS/VOLUME ] IN SERUM OR PLASMA 108 mg/dL 72 - 99 03/18 H Specimen Type: PLASMA Comment: No hemolysis noted. Ordering Provider: Nicanor KENNEDY Report Released Date/Time: Mar 18, 2024 10:55 AM Reporting Lab: [place] [phone] Performing Lab: [address] [place] [address] [facility] COMPREHENSI VE METABOLIC PANEL SODIUM [MOLES/VOLUM E] IN SERUM OR PLASMA 139 meq/L 136 - 145 03/18 Specimen Type: PLASMA Comment: No hemolysis noted. Ordering Provider: Nicanor KENNEDY Report Released Date/Time: Mar 18, 2024 10:55 AM Reporting Lab: [address] [address] Performing Lab: [address] [phone] [facility] COMPREHENSI VE METABOLIC PANEL POTASSIUM [MOLES/VOLUM E] IN SERUM OR PLASMA 4.9 meq/L 3.5 - 5 03/18 Specimen Type: PLASMA Comment: No hemolysis noted. Ordering Provider: Nicanor KENNEDY Report Released Date/Time: Mar 18, 2024 10:55 AM Reporting Lab: [address] [address] Performing Lab: [address] [address] [facility] COMPREHENSI VE METABOLIC PANEL CHLORIDE [MOLES/VOLUM E] IN SERUM OR PLASMA 106 meq/L 98 - 107 03/18 Specimen Type: PLASMA Comment: No hemolysis noted. Ordering Provider: Nicanor KENNEDY Report Released Date/Time: Mar 18, 2024 10:55 AM Reporting Lab: [address] [address] Performing Lab: [address] [address] [facility] COMPREHENSI VE METABOLIC PANEL CARBON DIOXIDE, TOTAL [MOLES/VOLUM E] IN SERUM OR PLASMA 25 meq/L 22 - 31 03/18 Specimen Type: PLASMA Comment: No hemolysis noted. Ordering Provider: Nicanor KENNEDY Report Released Date/Time: Mar 18, 2024 10:55 AM Reporting Lab: [address] [address] Performing Lab: [facility] [address] [facility] [address] [facility] COMPREHENSI VE METABOLIC PANEL CALCIUM [MASS/VOLUME ] IN SERUM OR PLASMA 9.3 mg/dL 8.4 - 10.4 03/18 Specimen Type: PLASMA Comment: No hemolysis noted. Ordering Provider: Nicanor KENNEDY Report Released Date/Time: Mar 18, 2024 10:55 AM Reporting Lab: [address] [address] Performing Lab: [address] [address] [facility] COMPREHENSI VE METABOLIC PANEL PROTEIN [MASS/VOLUME ] IN SERUM OR PLASMA 6.9 g/dL 6 - 8.6 03/18 Specimen Type: PLASMA Comment: No hemolysis noted. Ordering Provider: Nicanor KENNEDY Report Released Date/Time: Mar 18, 2024 10:55 AM Reporting Lab: [address] [address] Performing Lab: [address] [phone] [facility] COMPREHENSI VE METABOLIC PANEL ALBUMIN [MASS/VOLUME ] IN SERUM OR PLASMA 4.3 g/dL 3.4 - 5 03/18 Specimen Type: PLASMA Comment: No hemolysis noted. Ordering Provider: Nicanor KENNEDY Report Released Date/Time: Mar 18, 2024 10:55 AM Reporting Lab: [facility] [address] [place] [phone] Performing Lab: [address] [address] [facility] COMPREHENSI VE METABOLIC PANEL BILIRUBIN.TO ANTONI [MASS/VOLUME ] IN SERUM OR PLASMA 0.5 mg/dL 0.2 - 1.2 03/18 Specimen Type: PLASMA Comment: No hemolysis noted. Ordering Provider: Nicanor KENNEDY Report Released Date/Time: Mar 18, 2024 10:55 AM Reporting Lab: [facility] [address] [place] [phone] Performing Lab: [facility] [address] [place] [phone] [facility] COMPREHENSI VE METABOLIC PANEL ALKALINE PHOSPHATASE [ENZYMATIC ACTIVITY/VOL UME] IN SERUM OR PLASMA 73 U/L 40 - 150 03/18 Specimen Type: PLASMA Comment: No hemolysis noted. Ordering Provider: Nicanor KENNEDY Report Released Date/Time: Mar 18, 2024 10:55 AM Reporting Lab: [address] [address] Performing Lab: [address] [phone] [facility] COMPREHENSI VE METABOLIC PANEL ASPARTATE AMINOTRANSFE RASE [ENZYMATIC ACTIVITY/VOL UME] IN SERUM OR PLASMA 28 U/L 5 - 34 03/18 Specimen Type: PLASMA Comment: No hemolysis noted. Ordering Provider: Nicanor KENNEDY Report Released Date/Time: Mar 18, 2024 10:55 AM Reporting Lab: [facility] [address] [place] [phone] Performing Lab: [address] [phone] [facility] COMPREHENSI VE METABOLIC PANEL ALANINE AMINOTRANSFE RASE [ENZYMATIC ACTIVITY/VOL UME] IN SERUM OR PLASMA 24 U/L 8 - 40 03/18 Specimen Type: PLASMA Comment: No hemolysis noted. Ordering Provider: Nicanor KENNEDY Report Released Date/Time: Mar 18, 2024 10:55 AM Reporting Lab: [facility] [address] [place] [phone] Performing Lab: [address] [address] [facility] COMPREHENSI VE METABOLIC PANEL GLOMERULAR FILTRATION RATE/1.73 SQ M.PREDICTED [VOLUME RATE/AREA] IN SERUM, PLASMA OR BLOOD BY CREATININE-B ASED FORMULA (CKD-EPI 2020) 85.5 60 03/18 Specimen Type: PLASMA Comment: No hemolysis noted. Ordering Provider: Nicanor KENNEDY Report Released Date/Time: Mar 18, 2024 10:55 AM Reporting Lab: [facility] [address] [place] [phone] Performing Lab: [facility] [address] [place] [phone] [facility] HGA1C HEMOGLOBIN A1C/HEMOGLOB IN.TOTAL IN BLOOD 5.5 4.0 - 6.0 03/18 Specimen Type: BLOOD No comment entered. Ordering Provider: Nicanor KENNEDY Report Released Date/Time: Mar 18, 2024 10:55 AM Reporting Lab: [facility] [address] [place] [phone] Performing Lab: [facility] [address] [place] [phone] [facility] LIPID PANEL (STL) CHOLESTEROL [MASS/VOLUME ] IN SERUM OR PLASMA 209 mg/dL 0 - 200 03/18 H Specimen Type: PLASMA Comment: No hemolysis noted. Ordering Provider: Nicanor KENNEDY Report Released Date/Time: Mar 18, 2024 10:55 AM Reporting Lab: [facility] [address] [place] [phone] Performing Lab: [facility] [address] [place] [phone] [facility] LIPID PANEL (STL) TRIGLYCERIDE [MASS/VOLUME ] IN SERUM OR PLASMA 247 mg/dL 0 - 150 03/18 H Specimen Type: PLASMA Comment: No hemolysis noted. Ordering Provider: Nicanor KENNEDY Report Released Date/Time: Mar 18, 2024 10:55 AM Reporting Lab: [facility] [address] [place] [phone] Performing Lab: [facility] [address] [place] [phone] [facility] LIPID PANEL (STL) CHOLESTEROL IN LDL [MASS/VOLUME ] IN SERUM OR PLASMA BY CALCULATION 106 mg/dL 03/18 Specimen Type: PLASMA Comment: No hemolysis noted. Ordering Provider: Nicanor KENNEDY Report Released Date/Time: Mar 18, 2024 10:55 AM Reporting Lab: [facility] [address] [place] [phone] Performing Lab: [facility] [address] [place] [phone] [place] [address] [facility]OC LIPID PANEL (STL) CHOLESTEROL IN HDL [MASS/VOLUME ] IN SERUM OR PLASMA 54 mg/dL 40 03/18 Specimen Type: PLASMA Comment: No hemolysis noted. Ordering Provider: Nicanor KENNEDY Report Released Date/Time: Mar 18, 2024 10:55 AM Reporting Lab: [facility] [address] [place] [phone] Performing Lab: [address] [phone] [facility] TSH W/ REFLEX FT4 (STL) THYROTROPIN [UNITS/VOLUM E] IN SERUM OR PLASMA 0.605 u[IU]/ mL 0.47 - 5 03/18 Specimen Type: PLASMA No comment entered. Ordering Provider: Nicanor KENNEDY Report Released Date/Time: Mar 18, 2024 10:55 AM Reporting Lab: [facility] [address] [place] [phone] Performing Lab: [address] [phone] [facility] Vital Signs Combined list of inpatient and outpatient Vital Signs from Department of Defense and Veterans Affairs, ranging from 12 months to all on record, depending upon the facility. Vital Sign Value Date Comments Source SYSTOLIC BLOOD PRESSURE 120 03/29/2025 08:34:07 [facility] DIASTOLIC BLOOD PRESSURE 83 03/29/2025 08:34:07 [facility] PULSE OXIMETRY 97 % 03/29/2025 08:34:07 S [facility] WEIGHT 175.7 03/29/2025 08:34:07 [facility] BMI 22 kg/m2 03/29/2025 08:34:07 [facility] PAIN 0 03/29/2025 08:34:07 [facility] HEIGHT 74.5 03/29/2025 08:34:07 [facility] [...] included; 2) Encounters from the Department of [facility] facilities going backup to 280 months. Location Location Details Encounter Type Encounter Number Reason For Visit Attending Provider ADM Date DC Date Status Disposition Source [facility]( art Team 1007) OUTPATIENT [id number] HARVEY BAPTISTE 07/08 Released with Work/Duty Limitations [facility] [place]( Smart Team 1007) [facility]( art Team 1007) OUTPATIENT [id number] lft knee pain MIKE FORD 07/22 Released with Work/Duty Limitations [facility] [place]( Smart Team 1007) [facility] [place](Al litary Sick Call [facility] 237) OUTPATIENT [id number] L knee BEN BARNETT 08/26 Released with Work/Duty Limitations [facility] [place]( [facility] 237) [facility] [place](Al litary Sick Call [facility] 237) OUTPATIENT [id number] left knee AARTI STOVER 09/15 Released w/o Limitations [facility] S[facility] 237) [facility] [place](Al litary Sick Call [facility] 237) OUTPATIENT [id number] pt c/o N/V. GUSTAVO SAMAYOA 09/16 Sick at Home/Quarter s [facility] [place]( [facility] Sick Call [facility] 237) [facility](Al litary Sick Call [facility] 237) OUTPATIENT [id number] f/u streap throat PRAMOD ARAUJO 10/03 Released w/o Limitations [facility] [place] 237) [facility]([place]itary [place] [address]) OUTPATIENT [id number] pt c/o left knee pain since bootcam p. AARTI STOVER 10/10 Released with Work/Duty Limitations [facility] [place]( [facility] 237) [facility](Al [place]itary Sick [place] [address]) OUTPATIENT [id number] knee f/u AARTI STOVER 10/20 Released with Work/Duty Limitations [facility]( [facility] 237) [facility] [place](Al [place]itary Sick Call [place] [address]) OUTPATIENT [id number] eval for ffd GUSTAVO SAMAYOA 10/24 Released with Work/Duty Limitations [facility] [place] [facility] [place]( [facility] 237) [facility] [place] [place] [address]) OUTPATIENT [id number] sore throat AARTI STOVER 10/29 Sick at Home/Quarter s [facility] [place]( [facility] 237) [facility] [place] [place] [address]) OUTPATIENT [id number] f/u strep AARTI STOVER 10/30 Released w/o Limitations [facility] [place] [facility]( [facility] 237) [facility] [place] [place] [address]) OUTPATIENT [id number] f/u L knee AARTI STOVER 11/18 Released w/o Limitations [facility] [place] [facility]( [facility] 237) [facility] [place](Ph ysical Therapy/2 37) OUTPATIENT [id number] [place] 11/21 Released with Work/Duty Limitations [facility]( Physica l Therapy /237) [facility] OUT[facility]IENT [id number] GUSTAVO THOMPSON 03/19 Released w/o Limitations [facility] OUTPATIENT [id number] RLW RITCHIE YOUNG Son 03/19 Released w/o Limitations [facility]( [facility] OUTPATIENT [id number] KOMAL SYED Son 03/19 Released w/o Limitations [facility]( [facility]) [facility]) OUTPATIENT [id number] SUB PHYS TAMIA DRUMMOND 03/31 Released w/o Limitations [facility]) [facility]( [facility] Immuniz[facility]) OUTPATIENT [id number] Immuniz ations SAM PIRES E 04/08 Released w/o Limitations [facility]( [facility]) OUTPATIENT [id number] SUB DUTY PE SIMON EDMONDSON 05/01 Released with Work/Duty Limitations [facility]) OUTPATIENT [id number] mental health clearan ce SIMON EDMONDSON 07/14 Released with Work/Duty Limitations [facility]( [facility]) [facility]( [facility]) OUTPATIENT [id number] R Hand injury LIZETH JENKINS Ryan 07/17 Released with Work/Duty Limitations [facility]( [facility]) [facility](Immuniz ations [facility]) OUTPATIENT [id number] ppd/flu mist PASQUALE PLASCENCIA 08/28 Released w/o Limitations [facility](Imm unizati ons [facility] ) [facility](Immuniz ations [facility]) OUTPATIENT [id number] ppd read JAZZ DAVIS 08/31 Released w/o Limitations [facility](Imm unizati ons [facility] ) [facility] ER, DIRECT TO [facility] [id number] ANA HANLEY 01/15 RETURNED TO DUTY [facility](Nutriti on NMCP) INPATIENT [id number] CHIDI Sterling 01/19 Inpatient- Still a Patient [facility](Nut rition NMCP) [facility](Nutriti on NMCP) INPATIENT [id number] TF f/u CHIDI ROBERT F 01/24 Inpatient- Still a Patient [facility](Nut rition NMCP) [facility](Infecti ous Disease [facility]CP) INPATIENT [id number] TETO GARCÍA 01/26 Inpatient- Still a Patient [facility](Inf ectious Disease [facility]CP) [facility](Nutriti on NMCP) INPATIENT [id number] TF f/u CHIDI ROBERT F 01/27 Inpatient- Still a Patient [facility](Nut rition NMCP) [facility](Infecti ous Disease NMCP) INPATIENT [id number] ELILE TANG 01/27 Inpatient- Still a Patient [facility](Inf ectious Disease [facility]) [facility](Cardiol ogy NMCP) INPATIENT [id number] LUZMARIA Gaming 01/28 Inpatient- Still a Patient [facility](Car diology NMCP) [facility](Social Work NMCP) INPATIENT [id number] Psycho- social assessm HECTOR Johnson 02/03 Inpatient- Still a Patient [facility](Soc ial Work NMCP) [facility](Speech Pathology NMCP) INPATIENT [id number] Evaluat e for Ki smith Valve ODALIS RODRIGUEZ 02/07 Inpatient- Still a Patient [facility](Spe ech Patholo gy NMCP) [facility](Speech Pathology NMCP) INPATIENT [id number] ODALIS EDGE 02/08 Inpatient- Still a Patient [facility](Spe ech Patholo gy NMCP) [facility] [place] [facility](Speech Pathology [facility]) INPATIENT [id number] ODALIS RODRIGUEZ H 02/09 Inpatient- Still a Patient [facility] [place](Spe ech Patholo gy NMCP) [facility] [place] [facility](Speech Pathology [facility]) INPATIENT [id number] ODALIS RODRIGUEZ H 02/10 Inpatient- Still a Patient [facility](Spe ech Patholo gy [facility]) [facility] [place] [facility](Occ Therapy [facility]) INPATIENT [id number] [facility] JAZZ CARTER. 02/10 Inpatient- Still a Patient [facility] [place](Occ Therapy [facility]) [facility](Occ Therapy [facility]) INPATIENT [id number] [facility] JAZZ CARTER. 02/14 Inpatient- Still a Patient [facility] [place](Occ Therapy [facility]) [facility](Occ Therapy NMCP) INPATIENT [id number] [facility] JAZZ CARTER. 02/14 Inpatient- Still a Patient [facility](Occ Therapy [facility]) [facility](Nutriti on NM[facility]) INPATIENT [id number] YOLANDA CEDEÑO A 02/15 Inpatient- Still a Patient [facility](Nut rition NMCP) [facility](Occ Therapy NMCP) INPATIENT [id number] [facility] JAZZ Moe. 02/16 Inpatient- Still a Patient [facility] [place] [facility](Occ Therapy NMCP) [facility](Speech Pathology NMCP) INPATIENT [id number] Re assess Swallow functio n ODALIS RODRIGUEZ H 02/16 Inpatient- Still a Patient [facility] [place] [facility](Spe ech Patholo gy [facility]CP) [facility] [place] [facility](Occ Therapy [facility]) INPATIENT [id number] [facility] JAZZ CARTER. 02/16 Inpatient- [facility] a Patient [facility] [place](Occ Therapy NMCP) [facility] [place](Speech Pathology NMCP) INPATIENT [id number] ODALIS RODRIGUEZ H 02/16 Inpatient- Still a Patient [facility] [place] [facility](Spe ech Patholo gy NMCP) [facility] [place](Speech Pathology [facility]) INPATIENT [id number] Dysphag ia tx ODALIS RODRIGUEZ H 02/17 Inpatient- Longterm Facility [facility] [place](Spe ech Patholo gy [facility]) [facility] [place] [facility](Case Managemen t [facility]) OUTPATIENT [id number] CASE MANAGEM ENT IVANNA CORTÉS S 03/08 Released w/o Limitations [facility] [place] [facility]agem [facility]) [facility]emen [facility] [place]) OUTPATIENT [id number] CASE MANAGEM ENT LYDIA CORTÉSA S 03/09 Released w/o Limitations [facility] [place] Managem [facility] [place]) [facility] [place](Case Mgmt Active Duty (AD)) OUTPATIENT [id number] CASE MANAGEM ENT LYDIA CORTÉSA S 03/10 Released w/o Limitations [facility] [place] [facility](Dajuan e Mgmt Active Duty (AD)) [facility] [place] [facility](Case Mgmt Active Duty (AD)) OUTPATIENT [id number] IVANNA CORTÉS S 03/14 Released w/o Limitations [facility] [place] [facility](Dajuan e Mgmt Active Duty (AD)) [facility] [place](Case Mgmt Active Duty (AD)) OUTPATIENT [id number] CASE MANAGEM ENT LYDIA CORTÉSA S 03/15 Released w/o Limitations [facility] [place] [facility](Dajuan e Mgmt Active Duty (AD)) [facility] [place] [facility]emen [facility] [place] [facility]) OUTPATIENT [id number] CASE MANAGEM ENT LYDIA CORTÉSA S 03/17 Released w/o Limitations [facility] [place] Managem [facility] [place]) [facility] [place] [facility](Case Mgmt Active Duty (AD)) OUTPATIENT [id number] CASE MANAGEM ENT LYDIA CORTÉSA S 03/18 Released w/o Limitations [facility] [place] [facility](Dajuan e Mgmt Active Duty (AD)) [facility] [place] [facility](Neurosu rgery NMCP) OUTPATIENT [id number] preangi o for 14/dc from [facility]/co n leave ANA HANLEY 03/25 Released w/o Limitations [facility](William rosurge ry NMCP) [facility] [place] [facility]) OUTPATIENT [id number] bump under R armpit x 3 days MARYLU HODGES 04/05 Released w/o Limitations [facility] [employer] ) [facility] [place] [facility] DIRECT TO [facility] FROM OTHER THAN ER OR [facility] [id number] EDUIN TORRES 04/11 [employer] [facility] [place] [facility](Neurosu rgery NMCP) OUTPATIENT [id number] f/u after angiogr am 04/11 ANA HANLEY 04/14 Released w/o Limitations [facility](William rosurge ry NMCP) [facility] [place] [facility] ADMISSION RESULTING FROM [facility], DIRECT TO [facility]TF [id number] ANA HANLEY 04/19 [facility] TELE CONSULT [id number] please call pt post surgery . Dr.Cobe brown, perform ed surgery 2 weeks ago. CHELSEA NEAL 05/06 [facility](William rosurge ry NMCP) [facility] [place] (Case Managemen t [facility]) OUTPATIENT [id number] Case Managem ent IVANNA CORTÉS 05/06 Released w/o Limitations [facility](Dajuan e Managem ent [facility]) [facility] TELE CONSULT [id number] pt would like for you to call him back, did not give details as to why. CHELSEA NEAL 05/23 [facility](William rosurge ry NMCP) [facility] [place] [facility](Neurosu rgery NMCP) OUTPATIENT [id number] 1st post op f/u; no xrays ANA HANLEY 05/31 Released w/o Limitations [facility](William rosurge ry NMCP) [facility] [place] [facility](Neurosu rgery NMCP) TELE CONSULT [id number] [facility] N FOR CHELSEA PHAN 06/22 [facility] [place](William rosurge ry [facility]) [facility] [place]([employer] [facility] [place]) OUTPATIENT [id number] c/o hang nail ingrown on lt foot 3 wks HIGHANUJ 06/28 Released w/o Limitations [facility] [place] [facility] [place] ) [facility](Neurosu rgery [facility]) TELE CONSULT [id number] [facility] CHELSEA NEAL 07/22 [facility] [place] [facility](William [facility]surge ry [facility]) [facility] [place] [facility](Neurosu rgery [facility]) TELE CONSULT [id number] Michelaio n CHELSEA NEAL 08/03 [facility] [place](William [facility]surge ry [facility]) [facility] [place] [facility](Case Mgmt Active Duty (AD)) OUTPATIENT [id number] Case Managem ent IVANNA CORTÉS S 08/16 Released w/o Limitations [facility] [place] [facility]uan [facility]mt Active Duty (AD)) [facility] [place](Case Mgmt Active Duty (AD)) OUTPATIENT [id number] Case Managem ent IVANNA CORTÉS S 08/17 Released w/o Limitations [facility] [place] [facility]([place] Mgmt Active Duty (AD)) [facility] [place] [facility](Case Mgmt Active Duty (AD)) OUTPATIENT [id number] Case Managem ent IVANNA CORTÉS S 08/18 Released w/o Limitations [facility] [place] [facility] Mgmt Active Duty (AD)) [facility] [place] [facility](Case Mgmt Active Duty (AD)) OUTPATIENT [id number] Case Managem ent IVANNA CORTÉS S 08/19 Released w/o Limitations [facility] [place] [facility]([place]uan [facility] Mgmt Active Duty (AD)) [facility] [place] [place]) OUTPATIENT [id number] poss strep throat 2 days. TAMIA BALTAZAR 08/26 Released w/o Limitations [facility] [place] ) [facility] [place] [place]) OUTPATIENT [id number] sore throat, weaknes s x 8 days; already seen but not better DAKOTA MCCORMICK 09/01 Released w/o Limitations [facility](Mil [facility] ) [facility] [place] [facility] [employer]) OUTPATIENT [id number] PAL MCLEOD 09/05 Released w/o Limitations [facility] [place] [facility](Hea ring Cons [employer]) [facility] [place] [facility](Immuniz ations [facility]) OUTPATIENT [id number] ppd/flu mist KAREEN ARMENDARIZ 09/05 Released w/o Limitations [facility](Imm unizati ons [facility] ) [facility] [place] [facility](Case Mgmt Active Duty (AD)) OUTPATIENT [id number] Case Managem ent IVANNA CORTÉS S 09/05 Released w/o Limitations [facility] [place](Dajuan e Mgmt Active Duty (AD)) [facility] [place] [facility](Immuniz ations [facility]) OUTPATIENT [id number] ppd check JESSICA SOSA 09/07 Released w/o Limitations [facility](Imm unizati ons [facility] ) [facility] [place] [facility](Neurosu rgery [facility]) OUTPATIENT [id number] f/u EDUIN TORRES 10/04 Released with Work/Duty Limitations [facility] [place](William rosurge ry [facility]) [facility] [place] [facility] [place] OUTPATIENT [id number] part 2 SIERRA DE LA ROSA 10/06 Released w/o Limitations [facility] [place] [place] [facility](Neurosu rgery [facility]) TELE CONSULT [id number] CHELSEA FREDERICK 10/20 [facility] [place] [facility](William rosurge ry [facility]) [facility] [place] [facility](Case Mgmt Active Duty (AD)) OUTPATIENT [id number] Case Managem ent IVANNA CORTÉS 10/26 Released w/o Limitations [facility] [place] [facility](Dajuan e Mgmt Active Duty (AD)) [facility] OUTPATIENT [id number] AV JOHN_TA _MEREDITH BUCKNER 10/26 Released w/o Limitations [facility](Occ Therapy NMCP) [facility] [place] [facility](Occ Therapy [facility]) OUTPATIENT [id number] LILI MONTES 10/31 Released w/o Limitations [facility]) OUTPATIENT [id number] PAULO CORTÉS 11/02 Released w/o Limitations [facility] [place] [facility](Neurosu rgery [facility]) TELE CONSULT [id number] Emmett CHAMBERLAINESCHELSEA 11/04 [facility](William rosurge ry NM[facility]) [facility] [place] [facility](Occ Therapy NM[facility]) OUTPATIENT [id number] PAULO CORTÉS 11/07 Released w/o Limitations [facility](Occ Therapy NMCP) [facility]) OUTPATIENT [id number] LILI MONTES 11/09 Released w/o Limitations [facility](Occ Therapy NMCP) [facility]Neurosu [facility]gery [facility]) OUTPATIENT [id number] EDUIN TORRES 11/10 Released with Work/Duty Limitations [facility](William rosurge ry NM[facility]) [facility] [place] ([facility] [place]) OUTPATIENT [id number] Headach es since Sep 2008 DENISE BUSH 11/16 Released w/o Limitations [facility] [place] ) [facility] [place] [facility](Neurosu rgery [facility]) TELE CONSULT [id number] dr torres patient . HAN SHAH Radha 11/16 [facility](William rosurge ry NM[facility]) [facility] [place] [facility](Occ Therapy [facility]) OUTPATIENT [id number] LILI MONTES 11/17 Released w/o Limitations [facility](Occ Therapy NMCP) [facility] [place] [facility](Neurosu [facility]gery [facility]) TELE CONSULT [id number] pt status post brain hemmora ge now having difficu lt painful swallow ing. HAN SHAH Radha 11/21 [facility](William rosurge ry NM[facility]) [facility] [place] [facility](Occ Therapy [facility]) OUTPATIENT [id number] LILI MONTES 11/21 Released w/o Limitations [facility](Occ Therapy NM[facility]) [facility] [place] [facility](Case Mgmt Active Duty (AD)) OUTPATIENT [id number] Case Managem ent IVANNA CORTÉS S 11/23 Released w/o Limitations [facility](Dajuan e Mgmt Active Duty (AD)) [facility]) OUTPATIENT [id number] PAULO CORTÉS 11/23 Released w/o Limitations [facility](Occ Therapy NM[facility]) [facility] OUTPATIENT [id number] H/A since Sep ZAINAB SHETH 11/24 Released w/o Limitations [facility] ) [facility] [place] [facility](Occ Therapy [facility]) OUTPATIENT [id number] MEREDITH ABDULLAHI 11/25 Released w/o Limitations [facility](Occ Therapy NM[facility]) [facility] [place] (Case Mgmt Active Duty (AD)) OUTPATIENT [id number] Case Managem ent IVANNA CORTÉS S 12/26 Released w/o Limitations [facility](Daujan e Mgmt Active Duty (AD)) [facility](Neurosu rgery NMCP) TELE CONSULT [id number] Hi patient CHELSEA NEAL 01/19 [facility](William rosurge ry NM[facility]) [facility] [place] [facility](Case Mgmt Active Duty (AD)) OUTPATIENT [id number] Case Managem ent IVANNA COTRÉS S 01/23 Released w/o Limitations [facility](Dajuan e Mgmt Active Duty (AD)) [facility] [place] [facility](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) OUTPATIENT [id number] 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 LATONYA MARADIAGA 02/02 Released w/o Limitations [facility] [place]hy [facility] [employer] ) [facility] [place] [facility](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[employer] NM[facility]) OUTPATIENT [id number] RENEE GREENWOOD 02/16 Released w/o Limitations [facility] [place](Phy s Ther Aquatic Team NM[facility]) [facility] [place] [facility](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) OUTPATIENT [id number] HARVEY KONG 02/24 Released w/o Limitations [facility] [place] [facility] [employer] ) [facility] [place] [facility](Case Mgmt Active Duty (AD)) OUTPATIENT [id number] Case IVANNA Dobbs S 02/24 Released w/o Limitations [facility] [place](Dajuan e Mgmt Active Duty (AD)) [facility] [place] [facility](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) OUTPATIENT [id number] NORAH JIMENEZ V 02/28 Released w/o Limitations [facility] [place] [facility] [employer] ) [facility] [place] [facility](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) OUTPATIENT [id number] HARVEY KONG 03/01 Released w/o Limitations [facility] [place] [employer] ) [facility] [place] [facility](Case Mgmt Active Duty (AD)) OUTPATIENT [id number] Case IVANNA Dobbs S 03/03 Released w/o Limitations [facility] [place](Dajuan e Mgmt Active Duty (AD)) [facility] [place] [facility](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) OUTPATIENT [id number] HARVEY KONG 03/06 Released w/o Limitations [facility] [place] [facility] [employer] ) [facility] [place] [facility](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) OUTPATIENT [id number] HARVEY KONG 03/13 Released w/o Limitations [facility] [place] [facility] [employer] ) [facility] [place] [facility](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) OUTPATIENT [id number] NORAH JIMENEZ V 03/14 [facility]ased w/o Limitations [facility] [place] [facility] [employer] ) [facility] [place] [facility](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) OUTPATIENT [id number] HARVEY KONG 03/15 Released w/o Limitations [facility] [place] [facility] [employer] ) [facility] [place] [facility](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) OUTPATIENT [id number] TONY NORAH V 03/21 Released w/o Limitations [facility] [place] [facility] [employer] ) [facility] [place] [facility](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) OUTPATIENT [id number] HARVEY KONG 03/27 Released w/o Limitations [facility] [place] [facility] [employer] ) [facility] [place] [facility](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) OUTPATIENT [id number] ELVIA JEFFERS 04/12 Released w/o Limitations [facility] [place] [facility] [employer] ) [facility] [place] [facility](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) OUTPATIENT [id number] ELVIA JEFFERS 04/14 Released w/o Limitations [facility] [place] [facility] [employer] ) [facility] [place] [facility](Case Mgmt Active Duty (AD)) OUTPATIENT [id number] Case Managem ent IVANNA CORTÉS S 04/17 Released w/o Limitations [facility] [place] [facility](Dajuan e Mgmt Active Duty (AD)) [facility] [place] [facility](Neurosu rgery [facility]) TELE CONSULT [id number] pt has shashank boucher medical board HAN SHAH 05/22 [facility] [place] [facility]surge ry [facility]) [facility] [place] [facility](Neurosu [facility]gery [facility]) OUTPATIENT [id number] f/u for med boards ANA HANLEY 05/24 Released w/o Limitations [facility] [place] [facility]surge ry [facility]) [facility] [place] [facility](Case Mgmt Active Duty (AD)) OUTPATIENT [id number] Case Managem ent IVANNA CORTÉS S 05/29 Released w/o Limitations [facility] [place] [facility](Dajuan e Mgmt Active Duty (AD)) [facility] [place] [facility] [place] [facility]) OUTPATIENT [id number] peb CHRIS CHONG S 06/01 Released w/o Limitations [facility](Phy [facility] [place] [facility]) [facility]([employer]) OUTPATIENT [id number] SIDNEY DICKERSON L 06/01 Released w/o Limitations [facility](Hea ring Cons [employer]) [facility](Mil [facility] [place]) OUTPATIENT [id number] sore throat x 4 days SERINAMEREDITH JO W 06/16 Sick at Home/Quarter s [facility] [place] ) [facility](Neurosu rgery NMCP) TELE CONSULT [id number] prabhakar fontenot. would like to discuss med board. info cnt#[phone] CHELSEA NEAL 06/23 [facility](William rosurge ry [facility]) [facility](Case Mgmt Active Duty (AD)) OUTPATIENT [id number] Case Managem ent IVANNA CORTÉS S 08/01 Released w/o Limitations [facility](Dajuan e Mgmt Active Duty (AD)) [facility]) OUTPATIENT [id number] RIGHT WRIST PAIN ZAINAB SHETH T 08/02 Released w/o Limitations [facility] ) [facility](Optomet ry [employer]) OUTPATIENT [id number] eye exam DOROTHY SUH NMN 08/04 Released w/o Limitations [facility](Opt ometry [place]) [facility](Immuniz ation [facility]) OUTPATIENT [id number] Adult Imms - Flumist LISA PRASAD N P 08/17 Released w/o Limitations [facility](Imm unizati on NMCP) [facility](Neurosu rgery NMCP) TELE CONSULT [id number] Dr.Cobe brown pt. Mrs. 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[place]) OUTPATIENT [id number] TAMIA CARMONA 09/05 Released w/o Limitations [facility](Phy s Ther [place]PS) [facility](Occ Therapy [facility]CP) OUTPATIENT [id number] AVM altoned PAL NIEVES 09/12 Released w/o Limitations [facility](Occ Therapy [facility]) [facility](Case Mgmt Active Duty (AD)) OUTPATIENT [id number] Case Managem ent IVANNA CORTÉS 09/21 Released w/o Limitations [facility](Dajuan e Mgmt Active Duty (AD)) [facility] [place]) OUTPATIENT [id number] UPDATE LIMITED PROFILE FOR ZAINAB JACOME 11/01 Released w/o Limitations [facility] [place] ) [facility](Immuniz ations [facility]) OUTPATIENT [id number] VACCINE S WILTON SILVA 11/15 Released w/o Limitations [facility](Imm unizati ons [facility] ) [facility](Immuniz ations [facility]) OUTPATIENT [id number] vaccine JESSICA SOSA 11/21 Released w/o Limitations [facility](Imm unizati ons [facility] ) [facility]([place] [employer]) OUTPATIENT [id number] MEDICAL ASSIGNM ENT SCREEN (STANDB Y) KERRI TREJO 11/24 Released w/o Limitations [facility](Ove rseas Screeni ng [place] ) [facility](Mil AC [facility]) OUTPATIENT [id number] Pain in tonsils /throat , hot flashes IRENE FERGUSON Son 11/28 Released w/o Limitations [facility] [place] ) [facility](Neurosu rgery [facility]CP) TELE CONSULT [id number] pt's CO would like to speak with Dr Hanley [phone] CHELSEA NEAL 11/30 [facility](William rosurge ry [place]) [facility](Neurosu rgery [place]) OUTPATIENT [id number] f/u ANA HANLEY 12/01 Released w/o Limitations [facility](William rosurge ry [facility]) [facility] [place]) OUTPATIENT [id number] R MAGAÑA PAIN ZAINAB SHETH 12/05 Released w/o Limitations [facility] ) [facility](Case Mgmt Active Duty (AD)) OUTPATIENT [id number] Case Managem ent IVANNA CORTÉS 12/15 Released w/o Limitations [facility](Dajuan e Mgmt Active Duty (AD)) [facility](Immuniz ations [facility]) OUTPATIENT [id number] vaccine CIERA FOREMAN 01/09 Released w/o Limitations [facility](Imm unizati ons [facility] ) [facility] [place]) OUTPATIENT [id number] Chest Pain EMMA WHALEY 01/17 Released w/o Limitations [facility] [place] ) [facility] [place]) OUTPATIENT [id number] Injured right foot during PT x 5 days AYAD JEAN 02/21 Released w/o Limitations [facility] [place] ) [facility] OUTPATIENT [id number] f/u xray results ZAINAB SHETH 03/06 Released w/o Limitations [facility] [place] [facility](Neurosu rgery NMCP) TELE CONSULT [id number] Dr Hanley Pt . needs form stating he can fly. Pt leaving [place] on 7[place]6 GLADIS NEALZac Stockton 03/26 [facility](William rosurge ry [facility]) [facility]) OUTPATIENT [id number] sore throat EMMA WHALEY 03/28 Released w/o Limitations [facility] [place] ) [facility] [place]) OUTPATIENT [id number] seen yesterd ay for sorethr oat today throat is worse BRENT HARRISON 03/29 Released w/o Limitations [facility] ) [facility](Immuniz ations [facility]) OUTPATIENT [id number] vaccine JAZZ DAVIS 05/09 Released w/o Limitations [facility](Imm unizati ons [facility] ) [facility] [place]) OUTPATIENT [id number] R FOOT EVALUAT ION ZAINAB SHETH 05/15 Released w/o Limitations [facility] [place] ) [facility](Immuniz ations [facility]) OUTPATIENT [id number] vaccine KAREEN ARMENDARIZ 05/21 Released w/o Limitations [facility](Imm unizati ons [facility] ) [facility](Phys [facility] [place] [facility]) OUTPATIENT [id number] SEPARAT ION HOA L 885343 CHRIS CHONG 05/22 Released w/o Limitations [facility](Phy s Ex[facility] [place] [facility]) [facility](Neurosu rgery [facility]) TELE CONSULT [id number] Pt c/o of more frequen t paralys is, since surgery . 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 Outpatient Encounter [id number] 04/07 [facility] Outpatient Encounter [id number] 07/13 [facility] Outpatient Encounter [id number] 09/09 [facility] Outpatient Encounter [id number] CARLA DOOLEY 03/16 [facility] [place] [facility] OFFICE O/P EST LOW 20 MIN [id number] Diagnos is: ICD-10- CM Z00.00 Encntr for general adult medical exam w/o abnorma l finding s BRENT,Nicanor FAM L 03/29 [facility] Procedures Combined list of: 1) [...] OUTPATIENT FACILITY, APPROXIMATELY 20 TO 30 MINUTES [id number] WITH THE PATIENT 2006 [facility] PSYCHIATRIC DIAGNOSTIC INTERVIEW EXAMINATION 2006 [facility] IMMUNIZATION ADMINISTRATION (INCLUDES PERCUTANEOUS, INTRADERMAL, SUBCUTANEOUS, OR INTRAMUSCULAR INJECTIONS); 1 VACCINE (SINGLE OR COMBINATION VACCINE/TOXOID) 2006 [facility] PURE TONE AUDIOMETRY (THRESHOLD); AIR ONLY 2006 [facility] DETERMINATION OF REFRACTIVE STATE 2006 [facility] THERAPEUTIC PROCEDURE, 1 OR MORE AREAS, EACH 15 MINUTES; THERAPEUTIC EXERCISES TO DEVELOP STRENGTH AND ENDURANCE, RANGE OF MOTION AND FLEXIBILITY 2006 [facility] BUPRENORPHINE IMPLANT, 74.2 MG 2006 [facility] INDIVIDUAL PSYCHOTHERAPY, INSIGHT ORIENTED, BEHAVIOR MODIFYING AND/OR SUPPORTIVE, IN AN OFFICE OR OUTPATIENT FACILITY, APPROXIMATELY 20 TO 30 MINUTES [id number] WITH THE PATIENT 2006 [facility] PSYCHOLOGICAL TSTING (INCL PSYCHODIAG ASSESSMNT, EMOTITY, INTELLECTUAL ABILITIES, PERSONALITY &PSYCHOPATHOLOGY, EG, MMPI), ADMINISTERED COMPUTER, W QUALIFIED HEALTH FNPS INTERPRET &RPT 2006 [facility] PSYCHIATRIC DIAGNOSTIC INTERVIEW EXAMINATION 2006 [facility] THERAPEUTIC PROCEDURE, 1 OR MORE AREAS, EACH 15 MINUTES; THERAPEUTIC EXERCISES TO DEVELOP STRENGTH AND ENDURANCE, RANGE OF MOTION AND FLEXIBILITY 2005 [facility] ORAL THERMOMETER, REUSABLE, ANY TYPE, EACH 2005 [facility] TYPHOID VACCINE, CAPSULAR POLYSACCHARIDE (VICPS), FOR INTRAMUSCULAR USE 2005 [facility] BUPRENORPHINE IMPLANT, 74.[address] [facility] SCREENING TEST OF VISUAL ACUITY, QUANTITATIVE, BILATERAL 2005 [facility] AUDIOMETRIC TESTING OF GROUPS 2005 [facility] SKIN TEST; TUBERCULOSIS, INTRADERMAL 2005 [facility] SKIN TEST; TUBERCULOSIS, INTRADERMAL 2009 [facility] SKIN TEST; TUBERCULOSIS, INTRADERMAL 2009 [facility] ELECTROCARDIOGRAM, ROUTINE ECG WITH AT LEAST 12 LEADS; WITH INTERPRETATION AND REPORT 2009 [facility] SKIN TEST; TUBERCULOSIS, INTRADERMAL 2009 [facility] CASE MANAGEMENT, EACH [address] [facility] IMMUNIZATION ADMINISTRATION (INCLUDES PERCUTANEOUS, INTRADERMAL, SUBCUTANEOUS, OR INTRAMUSCULAR INJECTIONS); EACH ADDITIONAL VACCINE (SINGLE OR COMBINATION VACCINE/TOXOID) 2009 [facility] CASE MANAGEMENT, EACH [address] [facility] OCCUPATIONAL THERAPY EVALUATION 2008 [facility] PHYSICAL THERAPY RE-EVALUATION 2008 [facility] INFLUENZA VIRUS VACCINE, TRIVALENT, LIVE (LAIV3), FOR INTRANASAL USE 2008 [facility] FITTING OF SPECTACLES, EXCEPT FOR APHAKIA; MONOFOCAL 2008 [facility] COORDINATED CARE FEE, RISK ADJUSTED MAINTENANCE, LEVEL [address] [facility] HANDLING AND/OR CONVEYANCE OF SPECIMEN FOR TRANSFER FROM THE OFFICE TO A LABORATORY 2008 [facility] SCREENING TEST, PURE TONE, AIR ONLY 2008 [facility] COORDINATED CARE FEE, RISK ADJUSTED MAINTENANCE, LEVEL 4 2008 [facility] COORDINATED CARE FEE, RISK ADJUSTED MAINTENANCE, LEVEL [address] [facility] THERAPEUTIC PROCEDURE, 1 OR MORE AREAS, EACH 15 MINUTES; THERAPEUTIC EXERCISES TO DEVELOP STRENGTH AND ENDURANCE, RANGE OF MOTION AND FLEXIBILITY 2008 [facility] THERAPEUTIC PROCEDURE, 1 OR MORE AREAS, EACH 15 MINUTES; THERAPEUTIC EXERCISES TO DEVELOP STRENGTH AND ENDURANCE, RANGE OF MOTION AND FLEXIBILITY 2008 [facility] SELF-CARE/HOME MANAGMENT TRAIN (EG,ACT OF DAILY [...] DoD CASE MANAGEMENT, EACH [address] [facility] OCCUPATIONAL THERAPY RE-EVALUATION 2008 [facility] THERAPEUTIC [...] WISC CARD SORT TST),/HR OF PSYCHOLOGIST/PHYS TIME,BOTH [id number] ADMIN TST TO PAT & TIME INTERP [...] WISC CARD SORT TST),/HR OF PSYCHOLOGIST/PHYS TIME,BOTH [id number] ADMIN TST TO PAT & TIME INTERP TEST RES & PREP RPT 2008 [facility] THERAPEUTIC PROCEDURE, 1 OR MORE AREAS, EACH 15 MINUTES; THERAPEUTIC EXERCISES TO DEVELOP STRENGTH AND ENDURANCE, RANGE OF MOTION AND FLEXIBILITY 2008 Do[facility] COORDINATED CARE FEE, RISK ADJUSTED MAINTENANCE, LEVEL [address] [facility] UNLISTED SPECIAL SERVICE, PROCEDURE OR REPORT 2008 [facility] PSYCHOLOGICAL TSTING (INCL PSYCHODIAG ASSESSMNT, EMOTITY, INTELLECTUAL ABILITIES, PERSONALITY &PSYCHOPATHOLOGY, EG, MMPI), ADMINISTERED COMPUTER, W QUALIFIED HEALTH FNPS INTERPRET &RPT 2008 [facility] PSYCHIATRIC DIAGNOSTIC INTERVIEW EXAMINATION 2008 [facility] SCREENING TEST OF VISUAL ACUITY, QUANTITATIVE, BILATERAL 2008 DoD COORDINATED CARE FEE, RISK ADJUSTED MAINTENANCE, LEVEL [address] [facility] IMMUNIZATION ADMINISTRATION BY INTRANASAL OR ORAL ROUTE; 1 VACCINE (SINGLE OR COMBINATION VACCINE/TOXOID) 2007 [facility] AUDIOMETRIC TESTING OF GROUPS 2007 [facility] COLLECTION OF VENOUS BLOOD BY VENIPUNCTURE 2007 [facility] HANDLING AND/OR CONVEYANCE OF SPECIMEN FOR TRANSFER FROM THE OFFICE TO A LABORATORY 2007 DoD CASE MANAGEMENT, EACH 15 MINUTES 2007 DoD CASE MANAGEMENT, EACH 15 MINUTES 2007 DoD CASE MANAGEMENT, EACH [address] [facility] COORDINATED CARE FEE, RISK ADJUSTED MAINTENANCE 2007 DoD CASE MANAGEMENT, EACH [address] [facility] ARTERIOGRAPHY OF CEREBRAL ARTERIES 2007 [facility] OTHER EXCISION OR DESTRUCTION OF LESION OR TISSUE OF BRAIN 2007 [facility] OTHER CRANIECTOMY 2007 [facility] COMPUTERIZED AXIAL TOMOGRAPHY OF HEAD 2007 [facility] POSTOPERATIVE FOLLOW-UP VISIT, NORMALLY INCLUDED IN THE SURGICAL PACKAGE, INDICATE THAT EVALUATION & MANAGEMENT SERVICE WAS PERFORMED DURING A POSTOPERATIVE PERIOD REASON RELATED ORIGINAL PROCEDURE 2007 [facility] SELF-CARE/HOME MANAGMENT TRAIN (EG,ACT OF DAILY LIVING (ADL) &COMPENSAT TRAIN,MEAL PREPARATION,SAFETY PROCS,AND INSTRUCT IN USE OF ASST TECHNOLOGY DEV/ADPT EQUIP) DIR ONE-ON-ONE CONT,EA 15 MINUTES 2007 [facility] POSTOPERATIVE FOLLOW-UP VISIT, NORMALLY INCLUDED IN THE SURGICAL PACKAGE, INDICATE THAT EVALUATION & MANAGEMENT SERVICE WAS PERFORMED DURING A POSTOPERATIVE PERIOD REASON RELATED ORIGINAL PROCEDURE 2007 [facility] SURGERY OF INTRACRANIAL ARTERIOVENOUS MALFORMATION; SUPRATENTORIAL, [...] 2007 DoD OTHER INCISION OF BRAIN 01/28 [facility] VENTRICULOSTOMY 2007 [facility] TEMPORARY TRACHEOSTOMY 02/17 [facility] CLOSED [ENDOSCOPIC] BIOPSY OF BRONCHUS 2007 [facility] VENOUS CATHETERIZATION, NOT ELSEWHERE CLASSIFIED 2007 [facility] PERCUTANEOUS [ENDOSCOPIC] GASTROSTOMY [PEG] 2007 [facility] COMPUTERIZED AXIAL TOMOGRAPHY OF HEAD 2007 [facility] COMPUTERIZED AXIAL TOMOGRAPHY OF THORAX 2007 [facility] COMPUTERIZED AXIAL TOMOGRAPHY OF ABDOMEN 2007 [facility] ARTERIOGRAPHY OF CEREBRAL ARTERIES 2007 [facility] DIAGNOSTIC ULTRASOUND OF HEART 2007 [facility] OTHER DIAGNOSTIC ULTRASOUND 2007 [facility] RESPIRATORY MEDICATION ADMINISTERED BY NEBULIZER 2007 [facility] OTHER OXYGEN ENRICHMENT 01/28 [facility] INSERTION OF ENDOTRACHEAL TUBE 2007 [facility] OTHER LAVAGE OF BRONCHUS AND TRACHEA 2007 [facility] ENTERAL INFUSION OF CONCENTRATED NUTRITIONAL SUBSTANCES 2007 [facility] CONTINUOUS MECHANICAL VENTILATION FOR 96 CONSECUTIVE HOURS OR MORE 2007 [facility] INJECTION OF ANTICOAGULANT 2007 [facility] INJECTION OF ANTIBIOTIC 01/28 [facility] TREATMENT OF SWALLOWING DYSFUNCTION AND/OR ORAL FUNCTION FOR FEEDING 2007 Do[facility] POSTOPERATIVE FOLLOW-UP VISIT, NORMALLY INCLUDED IN THE SURGICAL PACKAGE, INDICATE THAT EVALUATION & MANAGEMENT SERVICE WAS PERFORMED DURING A POSTOPERATIVE PERIOD REASON RELATED ORIGINAL PROCEDURE 2007 [facility] THERAPEUTIC PROCEDURE,1 OR MORE AREAS,EACH 15 MINUTES;NEUROMUSCULAR REEDUCATION OF MOVEMENT,BALANCE,COORDI NATION,KINESTHETIC SENSE,POSTURE,AND/OR PROPRIOCEPTION FOR SITTING AND/OR STANDING ACTIVITIES 2007 [facility] TREATMENT OF SWALLOWING DYSFUNCTION AND/OR ORAL FUNCTION FOR FEEDING 2007 [facility] THERAPEUTIC PROCEDURE, 1 OR MORE AREAS, EACH 15 MINUTES; GAIT TRAINING (INCLUDES STAIR CLIMBING) 2007 [facility] POSTOPERATIVE FOLLOW-UP VISIT, NORMALLY INCLUDED IN THE SURGICAL PACKAGE, INDICATE THAT EVALUATION & MANAGEMENT SERVICE WAS PERFORMED DURING A POSTOPERATIVE PERIOD REASON RELATED ORIGINAL PROCEDURE 2007 [facility] SELF-CARE/HOME MANAGMENT TRAIN (EG,ACT OF DAILY LIVING (ADL) &COMPENSAT TRAIN,MEAL PREPARATION,SAFETY PROCS,AND INSTRUCT IN USE OF ASST TECHNOLOGY DEV/ADPT EQUIP) DIR ONE-ON-ONE CONT,EA [address] [facility] THERAPEUTIC PROCEDURE, 1 OR MORE AREAS, EACH 15 MINUTES; GAIT TRAINING (INCLUDES STAIR CLIMBING) 2007 [facility] MEDICAL NUTRITION THERAPY; RE-ASSESSMENT AND INTERVENTION, INDIVIDUAL, [id number] WITH THE PATIENT, EACH [address] [facility] SELF-CARE/HOME MANAGMENT TRAIN (EG,ACT OF DAILY LIVING (ADL) &COMPENSAT TRAIN,MEAL PREPARATION,SAFETY PROCS,AND INSTRUCT IN USE OF ASST TECHNOLOGY DEV/ADPT EQUIP) DIR ONE-ON-ONE CONT,EA [address] [facility] THERAPEUTIC ACTIVITIES, DIRECT (ONE-ON-ONE) PATIENT CONTACT (USE OF DYNAMIC ACTIVITIES TO IMPROVE FUNCTIONAL PERFORMANCE), EACH [address] [facility] POSTOPERATIVE FOLLOW-UP VISIT, NORMALLY INCLUDED IN THE SURGICAL PACKAGE, INDICATE THAT EVALUATION & MANAGEMENT SERVICE WAS PERFORMED DURING A POSTOPERATIVE PERIOD REASON RELATED ORIGINAL PROCEDURE 2007 [facility] POSTOPERATIVE FOLLOW-UP VISIT, NORMALLY INCLUDED IN THE SURGICAL PACKAGE, INDICATE THAT EVALUATION & MANAGEMENT SERVICE WAS PERFORMED DURING A POSTOPERATIVE PERIOD REASON RELATED ORIGINAL PROCEDURE 2007 [facility] PHYSICAL THERAPY RE-EVALUATION 2007 [facility] POSTOPERATIVE FOLLOW-UP VISIT, NORMALLY INCLUDED IN THE SURGICAL PACKAGE, INDICATE THAT EVALUATION & MANAGEMENT SERVICE WAS PERFORMED DURING A POSTOPERATIVE PERIOD REASON RELATED ORIGINAL PROCEDURE 2007 [facility] THERAPEUTIC ACTIVITIES, DIRECT (ONE-ON-ONE) PATIENT CONTACT (USE OF DYNAMIC ACTIVITIES TO IMPROVE FUNCTIONAL PERFORMANCE), EACH [address] [facility] TREATMENT OF SWALLOWING DYSFUNCTION AND/OR ORAL FUNCTION FOR FEEDING 2007 [facility]D POSTOPERATIVE FOLLOW-UP VISIT, NORMALLY INCLUDED IN THE SURGICAL PACKAGE, INDICATE THAT EVALUATION & MANAGEMENT SERVICE WAS PERFORMED DURING A POSTOPERATIVE PERIOD REASON RELATED ORIGINAL PROCEDURE 2007 [facility] THERAPEUTIC ACTIVITIES, DIRECT (ONE-ON-ONE) PATIENT CONTACT (USE OF DYNAMIC ACTIVITIES TO IMPROVE FUNCTIONAL PERFORMANCE), EACH [address] [facility] THERAPEUTIC PROCEDURE, 1 OR MORE AREAS, EACH 15 MINUTES; THERAPEUTIC EXERCISES TO DEVELOP STRENGTH AND ENDURANCE, RANGE OF MOTION AND FLEXIBILITY 2007 [facility] TREATMENT OF SWALLOWING DYSFUNCTION AND/OR ORAL FUNCTION FOR FEEDING 2007 [facility] POSTOPERATIVE FOLLOW-UP VISIT, NORMALLY INCLUDED IN THE SURGICAL PACKAGE, INDICATE THAT EVALUATION & MANAGEMENT SERVICE WAS PERFORMED DURING A POSTOPERATIVE PERIOD REASON RELATED ORIGINAL PROCEDURE 2007 [facility] POSTOPERATIVE FOLLOW-UP VISIT, NORMALLY INCLUDED IN THE SURGICAL PACKAGE, INDICATE THAT EVALUATION & MANAGEMENT SERVICE WAS PERFORMED DURING A POSTOPERATIVE PERIOD REASON RELATED ORIGINAL PROCEDURE 2007 [facility] THERAPEUTIC ACTIVITIES, DIRECT (ONE-ON-ONE) PATIENT CONTACT (USE OF DYNAMIC ACTIVITIES TO IMPROVE FUNCTIONAL PERFORMANCE), EACH [address] [facility] TREATMENT OF SPEECH, LANGUAGE, VOICE, COMMUNICATION, AND/OR AUDITORY PROCESSING DISORDER; INDIVIDUAL 2007 [facility] MEDICAL NUTRITION THERAPY; RE-ASSESSMENT AND INTERVENTION, INDIVIDUAL, [id number] WITH THE PATIENT, EACH [address] [facility] OCCUPATIONAL THERAPY EVALUATION 2007 [facility] THERAPEUTIC ACTIVITIES, DIRECT (ONE-ON-ONE) PATIENT CONTACT (USE OF DYNAMIC ACTIVITIES TO IMPROVE FUNCTIONAL PERFORMANCE), EACH [address] [facility] TRACHEOSTOMY SPEAKING VALVE 2007 [facility] POSTOPERATIVE FOLLOW-UP VISIT, NORMALLY INCLUDED IN THE SURGICAL PACKAGE, INDICATE THAT EVALUATION & MANAGEMENT SERVICE WAS PERFORMED DURING A POSTOPERATIVE PERIOD REASON RELATED ORIGINAL PROCEDURE 2007 [facility] PHYSICAL THERAPY EVALUATION 2007 [facility] TRACHEOSTOMY SPEAKING VALVE 2007 [facility]D POSTOPERATIVE FOLLOW-UP VISIT, NORMALLY INCLUDED IN THE SURGICAL PACKAGE, INDICATE THAT EVALUATION & MANAGEMENT SERVICE WAS PERFORMED DURING A POSTOPERATIVE PERIOD REASON RELATED ORIGINAL PROCEDURE 2007 [facility] PHYSICAL THERAPY EVALUATION 2007 [facility] HEALTH&BEHAV ASSESSMENT (EG, HEALTH-FOC CLINICAL INTERVIEW, BEHAVIORAL OBSERVATIONS, PSYCHOPHYSICOLOGICAL MONITOR, HEALTH-ORIENT QUESTIONNAIRES), EA 15 MIN [id number] W THE PATIENT; INIT ASSESSMENT 2007 [facility] MEDICAL NUTRITION THERAPY; RE-ASSESSMENT AND INTERVENTION, INDIVIDUAL, [id number] WITH THE PATIENT, EACH [address] [facility] INSERTION OF GASTROSTOMY TUBE, PERCUTANEOUS, UNDER FLUOROSCOPIC GUIDANCE INCLUDING CONTRAST INJECTION(S), IMAGE DOCUMENTATION AND REPORT 2007 [facility] MEDICAL NUTRITION THERAPY; RE-ASSESSMENT AND INTERVENTION, INDIVIDUAL, [id number] WITH THE PATIENT, EACH [address] [facility] MEDICAL NUTRITION THERAPY; RE-ASSESSMENT AND INTERVENTION, INDIVIDUAL, [id number] WITH THE PATIENT, EACH [address] [facility] POSTOPERATIVE FOLLOW-UP VISIT, NORMALLY INCLUDED IN THE SURGICAL PACKAGE, INDICATE THAT EVALUATION & MANAGEMENT SERVICE WAS PERFORMED DURING A POSTOPERATIVE PERIOD REASON RELATED ORIGINAL PROCEDURE 2007 [facility] POSTOPERATIVE FOLLOW-UP VISIT, NORMALLY INCLUDED IN THE SURGICAL PACKAGE, INDICATE THAT EVALUATION & MANAGEMENT SERVICE WAS PERFORMED DURING A POSTOPERATIVE PERIOD REASON RELATED ORIGINAL PROCEDURE 2007 [facility] CRANIECTOMY OR CRANIOTOMY FOR EVACUATION OF HEMATOMA, SUPRATENTORIAL; INTRACEREBRAL 2007 [facility] MEDICAL NUTRITION THERAPY; RE-ASSESSMENT AND INTERVENTION, INDIVIDUAL, [id number] WITH THE PATIENT, EACH [address] [facility] SKIN TEST; TUBERCULOSIS, INTRADERMAL 2006 [facility] PT A e ment Kinetic Training PT Assessment Kinetic Training 10920 2007 JAZZ CARTER Training And Self-Care Skills Training And Self-Care Skills 29944 2007 [facility] CAR[facility] Exercises A isted Exercises For ROM Exercises Assisted Exercises For ROM 23838 2007 [facility] CAR[facility] Treatment Of Swallowing Dysfunction Treatment Of Swallowing Dysfunction 73046 2007 ODALIS RODRIGUEZ [facility] Supervised Individual Speech/Hearing Therapy 2007 ODALIS RODRIGUEZ Treatment Of Swallowing Dysfunction Treatment Of Swallowing Dysfunction 01087 2007 ODALIS RODRIGUEZ Tracheostomy speaking valve 2007 ODALIS RODRIGUEZ [facility] Evaluation of Speech/Hearing Problem 2007 ODALIS RODRIGUEZ Evaluation Of Swallowing And Oral Function Evaluation Of Swallowing And Oral Function 79425 [address] [facility] Tracheostomy speaking valve [address] [facility] Health And Behav A e mt Each 15 Min Initial A e ment Health And Behav Assessmt Each 15 Min Initial Assessment 32992 2007 HECTOR DODGE Medical Nutrition Therapy Re-a e ment, Intervention Medical Nutrition Therapy Re-assessment, Intervention 25675 2007 CHIDI ROBERT Medical Nutrition Therapy Re-a e ment, Intervention Medical Nutrition Therapy Re-assessment, Intervention 05793 2007 CHIDI ROBERT Medical Nutrition Therapy Re-a e ment, Intervention Medical Nutrition Therapy Re-assessment, Intervention [address] [facility] Immunization Admin By Intranasal / Oral Route One Vaccine Immunization Admin By Intranasal / Oral Route One Vaccine [address] [facility] Influenza Virus Vaccine Live Intranasal [address] [facility] Skin Test Anergy Tuberculin Intradermal Skin Test Anergy Tuberculin Intradermal [address] [facility] Psychiatric Therapy Individual Approximately 20-30 Minutes Psychiatric Therapy Individual Approximately 20-30 Minutes [address] [facility] Psychiatric Evaluation Comprehensive Examination Psychiatric Evaluation Comprehensive Examination [address] [facility] Hepatitis A And Hepatitis B (Intramuscular Use) Adult Dosage Hepatitis A And Hepatitis B (Intramuscular Use) Adult Dosage [address] [facility] Immunization Administration One Vaccine Immunization Administration One Vaccine [address] [facility] Threshold Audiogram (Pure Tone) Threshold Audiogram (Pure Tone) [address] [facility] Audiogram (Screening) Audiogram (Screening) [address] [facility] Ophthalmological New Patient Start Comprehensive Care Ophthalmological New Patient Start Comprehensive Care 28260 2006 GUSTAVO VALLE Determination Of Refractive State Determination Of Refractive State [id number] 2006 GUSTAVO VALLE Exercises A isted Exercises For ROM Exercises Assisted Exercises For ROM [address] [facility] PT A e ment Kinetic Training Initial 30 Minutes PT Assessment Kinetic Training Initial 30 Minutes [id number] 2006 BRET VILLA Physical Medicine - Group Physical Therapy Se ion Physical Medicine - Group Physical Therapy Session 04581 2006 BRET VILLA Psychiatric Therapy Environmental Intervention Psychiatric Therapy Environmental Intervention 73947 2006 LEMUEL SAMPSON Psychiatric Therapy Individual Approximately 20-30 Minutes Psychiatric Therapy Individual Approximately 20-30 Minutes 46029 2006 LEMUEL SAMPSON Psychologic Testing And Report Administered By Computer Psychologic Testing And Report Administered By Computer [address] [facility] Psychiatric Evaluation Comprehensive Examination Psychiatric Evaluation Comprehensive Examination [address] [facility] Skin Test Anergy Tuberculin Intradermal Skin Test Anergy Tuberculin Intradermal [address] [facility] Skin Test Anergy Tuberculin Intradermal Skin Test Anergy Tuberculin Intradermal [address] [facility] Electrocardiogram Electrocardiogram 31966 01/[address] [facility] Skin Test Anergy Tuberculin Intradermal Skin Test Anergy Tuberculin Intradermal [address] [facility] Coordinated care fee, risk adjusted maintenance [address] [facility] Case Management, each 15 minutes [address] [facility] Influenza Virus Vaccine Pandemic Formulation Influenza Virus Vaccine Pandemic Formulation [address] [facility] Immunization Admin By Intranasal / Oral Route One Vaccine Immunization Admin By Intranasal / Oral Route One Vaccine [address] [facility] Immunization Administration Each Additional Vaccine [address] [facility] Typhoid Vaccine Vi Capsular Polysaccharide, For Intramus Use Typhoid Vaccine Vi Capsular Polysaccharide, For Intramus Use [address] [facility] Skin Test Anergy Tuberculin Intradermal Skin Test Anergy Tuberculin Intradermal [address] [facility] Coordinated care fee, risk adjusted maintenance, Level [address] [facility] Case Management, each 15 minutes [address] [facility] Occupational Therapy Evaluation Occupational Therapy Evaluation 96277 2008 [address] [facility] Physical Medicine Physical Therapy Re-Evaluation Physical Medicine Physical Therapy Re-Evaluation [address] [facility] Influenza Virus Vaccine Live Intranasal [address] [facility] Immunization Admin By Intranasal / Oral Route One Vaccine Immunization Admin By Intranasal / Oral Route One Vaccine [address] [facility] Coordinated care fee, risk adjusted maintenance, Level [address] [facility] Spectacles Services Fitting Monofocals (Not For Aphakia) Spectacles Services Fitting Monofocals (Not For Aphakia) [address] [facility] Determination Of Refractive State Determination Of Refractive State 70792 2008 DOROTHY SUH INElin [facility] Ophthalmological New Patient Start Comprehensive Care Ophthalmological New Patient Start Comprehensive Care [address] [facility] -Supervised Specimen Handling / Transfer: Office To Lab -Supervised Specimen Handling / Transfer: Office To Lab [address] [facility] Coordinated care fee, risk adjusted maintenance, Level 4 2008 LONG, IVANNA S [facility] Case Management, each 15 minutes 2008 LONG, IVANNA S [facility] Audiogram (Screening) Audiogram (Screening) [address] [facility] Audiometry Group Testing Audiometry Group Testing [address] [facility] Coordinated care fee, risk adjusted maintenance, Level 4 2008 LONG, IVANNA S [facility] Case Management, each 15 minutes 2008 LONG, IVANNA S [facility] Physical Therapy: ___ Se ion Segments, 15 Minutes Each Physical Therapy: ___ Session Segments, 15 Minutes Each 22378 2008 ELVIA JEFFERS x [address] [facility] Physical Therapy: ___ Se ion Segments, 15 Minutes Each Physical Therapy: ___ Session Segments, 15 Minutes Each 94726 2008 EVLIA JEFFERS x [address] [facility] Phys Therapy Education Self Care Training - Per 15 Minutes Phys Therapy Education Self Care Training - Per 15 Minutes [address] [facility] Physical Therapy: ___ Se ion Segments, 15 Minutes Each Physical Therapy: ___ Session Segments, 15 Minutes Each 8[address] [facility] Aquatic Exercises Aquatic Exercises 89717 03/15 NORAH JIMENEZ Phys Therapy Education Self Care Training - Per 15 Minutes Phys Therapy Education Self Care Training - Per 15 Minutes 36803 2008 HARVEY KONG Phys Therapy Education Self Care Training - Per 15 Minutes Phys Therapy Education Self Care Training - Per 15 Minutes 13744 2008 HARVEY KONG Phys Therapy Education Self Care Training - Per 15 Minutes Phys Therapy Education Self Care Training - Per 15 Minutes [address] [facility] Coordinated care fee, risk adjusted maintenance, [...] Self Care Training - Per 15 Minutes 65784 2008 HARVEY KONG Aquatic Exercises Aquatic Exercises 98899 02/[address] [facility] Phys Therapy Education Self Care Training - Per 15 Minutes Phys Therapy Education Self Care Training - Per 15 Minutes 58403 2008 HARVEY KONG Aquatic Exercises Aquatic Exercises 26475 02/[address] [facility] Physical Medicine Physical Therapy Evaluation Physical Medicine Physical Therapy Evaluation [address] [facility] Coordinated care fee, risk adjusted maintenance, Level 4 2008 LONG, IVANNA S DoD Case Management, each 15 minutes 2008 LONG, IVANNA S DoD Coordinated care fee, risk adjusted maintenance, Level 4 2008 LONG, IVANNA S DoD Case Management, each 15 minutes 2008 LONG, IVANNA S [facility] Occupational Therapy Re-Evaluation Occupational Therapy Re-Evaluation 78539 2008 DELETE_[email or web address] STAFFORD [facility] PT A e ment Kinetic Training PT Assessment Kinetic Training [address] [facility] Coordinated care fee, risk adjusted maintenance, Level 3 [address] [facility] Case Management, each 15 minutes [address] [facility] PT A e ment Kinetic Training PT Assessment Kinetic Training 15463 2008 LILI MONTES PT A e ment Kinetic Training PT Assessment Kinetic Training 70261 2008 LILI MONTES PT A e ment Kinetic Training PT Assessment Kinetic Training 84055 2008 LILI MONTES Psychometric Neuropsych Testing Battery Admin By Physician Psychometric Neuropsych Testing Battery Admin By Physician [address] [facility] PT A e ment Kinetic Training PT Assessment Kinetic Training 22457 2008 PAULO CORTÉS PT A e ment Kinetic Training PT Assessment Kinetic Training 03734 2008 PAULO CORTÉS PT A e ment Kinetic Training PT Assessment Kinetic Training 10406 2008 PAULO CORTÉS Psychometric Neuropsych Testing Battery Admin By Physician Psychometric Neuropsych Testing Battery Admin By Physician [address] [facility] Psychometric Neuropsych Testing Battery Admin By Blood Bank Coordinator Psychometric Neuropsych Testing Battery Admin By Blood Bank Coordinator [address] [facility] Exercises A isted Exercises For ROM Exercises Assisted Exercises For ROM 29070 2008 DELETE_MEREDITH MISHRA [facility] Training And Self-Care Skills Training And Self-Care Skills 65169 2008 TIAGOTE_MEREDITH MISHRA [facility] Occupational Therapy Evaluation Occupational Therapy Evaluation 45034 2008 TIAGOTE_MEREDITH MIHSRA [facility] Coordinated care fee, risk adjusted maintenance, Level [address] [facility] Case Management, each 15 minutes [address] [facility] Psychologic Testing And Report Administered By Computer Psychologic Testing And Report Administered By Computer 74300 2008 JATINDER GARCIA Psychometric Neuropsych Testing Battery Admin By Blood Bank Coordinator Psychometric Neuropsych Testing Battery Admin By Blood Bank Coordinator [address] [facility] Psychiatric Evaluation Comprehensive Examination Psychiatric Evaluation Comprehensive Examination [address] [facility] Screening Test Of Visual Acuity, Quantitative, Bilateral Screening Test Of Visual Acuity, Quantitative, Bilateral 29910 [address] [facility] Coordinated care fee, risk adjusted maintenance, Level 3 2007 LONG, IVANNA S [facility] Case Management, each 15 minutes 2007 LONG, IVANNA S [facility] Audiometry Group Testing Audiometry Group Testing [address] [facility] Immunization Admin By Intranasal / Oral Route One Vaccine Immunization Admin By Intranasal / Oral Route One Vaccine [address] [facility] Influenza Virus Vaccine Live Intranasal [facility] Skin Test Anergy Tuberculin Intradermal Skin Test Anergy Tuberculin Intradermal 70770 2007 [facility] Venipuncture Venipuncture [address] [facility] -Supervised Specimen Handling / Transfer: Office To Lab -Supervised Specimen Handling / Transfer: Office To Lab [address]Supervised Specimen Handling / Transfer: Office To Lab -Supervised Specimen Handling / Transfer: Office To Lab [address] [facility] Case Management, each 15 minutes 2007 LONG, IVANNA S [facility] Case Management, each 15 minutes 2007 LONG, IVANNA S [facility] Case Management, each 15 minutes 2007 LONG, IVANNA S [facility] Coordinated care fee, risk adjusted maintenance [...] each 15 minutes 2007 LONG, IVANNA S [facility] Case Management, each 15 minutes 2007 LONG, IVANNA S [facility] Treatment Of Swallowing Dysfunction Treatment Of Swallowing Dysfunction [address]57 [address] [facility] Physical Therapy Neuromuscular Re-education Physical Therapy Neuromuscular Re-education [address] [facility] Treatment Of Swallowing Dysfunction Treatment Of Swallowing Dysfunction 8[address] [facility] Training And Self-Care Skills Training And Self-Care Skills [address] [facility] Medical Nutrition Therapy Re-a e ment, Intervention Medical Nutrition Therapy Re-assessment, Intervention [address] [facility] [facility]Care Skills Training And Self-Care Skills [id number] [facility] Physical Therapy Neuromuscular Re-education Physical Therapy Neuromuscular Re-education [id number] 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 Social History Type Response Date Comment Sour e Tobacco smoking status NHIS VA-TOBACCO USE EVERY DAY CIGARETTES 03/29/2025 [facility] History of tobacco use VA-TOBACCO NEVER USED OTHER TYPE 03/29/2025 [facility] History of tobacco use IN-TOBACCO FORMER USER 03/18/2024 [facility] History of tobacco use VA-TOBACCO USER EVERY DAY 03/18/2023 [facility] of [facility]/06/2022 [facility] History of tobacco use ORYX ADMIT TOBACCO SCREEN YES 11/06/2022 [facility] History of tobacco use LIFETIME NON-USER OF TOBACCO 01/17/2011 [facility] History of tobacco use LIFETIME NON-USER OF TOBACCO 03/04/2008 [facility] This section is an empty social history section. DoD Plan of Care List of future care activities from Department of 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 Additional future care activities may be listed in the Assessment and Plan section. Date/Time Care Activity Care Activity Detail Facili ty 05/03/2025 AMBULATORY - MEDICINE [facility]
== END 2025-04-09 13:31 | disposition home or self-care (01) ==
PROVIDERS: Emergency Provider Emergency Medicine; PCP Physician Assistant
DX: K02.9 Dental caries, unspecified (principal); K04.7 Periapical abscess without sinus
CPT/HCPCS: 99283; A9270

== ENCOUNTER 2025-05-14 11:28 | Emergency (ER) | payer OTHER, SELFPAY ==
[2025-05-14 11:30] VITALS: BP 157/81; PULSE 83; RESP 16; TEMP 36.7; O2SAT 95
--- OUTSIDE RECORDS SUMMARY | 2025-05-14 11:30 | XMS_ITS | Encounter Summary ---
Author Name [facility] [place] [facility] [place] Address [address] [place] [address] Care Team Providers Care Scrap Handler Name Role Phone AARON KENNEDY Primary Care [...] Palacios's Name Patient's Relationship to Policy Palacios [facility] 2018 PRIME Sep 29, 2017 RETIREE [id number] RICK CUMMINGS PATIENT [facility] 2018 TRICA RE Sep 29, 2017 PRIME [id number] RICK CUMMINGS PATIENT Selected Encounter This section includes the information on record at [place] for the Encounter. 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 This section includes future appointments and future orders which are active, pending or scheduled. Future Appointments This section includes appointments that were scheduled to occur 6 months from the date of the Encounter, up to a maximum of 20 appointments. The data comes from all [place] treatment facilities. Appointment Date/Time Appointment Type Appointme nt Facility Name Jul 01, 2025 11:00 AM AMBULATORY - MEDICINE [facility] Social History: Smoking Status (Most current) and Tobacco Use (All prior to encounter date) This section includes the most current, and the historical, smoking and tobacco- related health factors from the [place] facility where the Encounter took place. Current Smoking Status This section includes the most current smoking, or tobacco-related health factor, from the [place] facility where the Encounter took place. Date/Time Current Smoking Status Comment Facil ity Mar 29, 2025 08:30 AM VA-TOBACCO NEVER USED OTHER TYPE [facility] Tobacco Use History This section includes a history of the smoking, or tobacco-related health factors, that were collected on or before the date of the Encounter. The data comes from the [place] facility where the Encounter took place. Date/Time Smoking Status/Tobacco Use Comment F acility Mar 29, 2025 08:30 AM VA-TOBACCO SCREEN FOLLOW-UP [facility] Mar 29, 2025 08:30 AM VA-TOBACCO USE ADVICE [facility] Mar 29, 2025 08:30 AM VA-TOBACCO USE PLASTERER STUCCO NO [facility] Mar 29, 2025 08:30 AM VA-TOBACCO USE EVERY DAY CIGARET CAM [facility] Mar 29, 2025 08:30 AM VA-TOBACCO USE MED YES [facility] Mar 29, 2025 08:30 AM VA-TOBACCO USE WI 30 MIN OF WAKE UP [facility] Mar 18, 2024 10:30 AM VA-TOBACCO FORMER USER [facility] Mar 18, 2024 10:30 AM VA-TOBACCO QUIT < 1 YEAR [facility] Mar 18, 2023 09:00 AM VA-TOBACCO DOESNT USE WI 30 MIN WAKEUP [facility] Mar 18, 2023 09:00 AM VA-TOBACCO USE 5 TO 15 YEARS [facility] Mar 18, 2023 09:00 AM VA-TOBACCO USE ADVICE [facility] Mar 18, 2023 09:00 AM VA-TOBACCO USE PLASTERER STUCCO NO [facility] Mar 18, 2023 09:00 AM VA-TOBACCO USE MED NO [facility] Mar 18, 2023 09:00 AM VA-TOBACCO USER EVERY DAY [facility] Encounter Notes: All associated encounter notes This section contains the clinical notes associated to the Encounter. Date/Time Encounter Note(s) Provider Source May 03, 2025 11:04 AM MENTAL HEALTH CONS ULT: [facility] TITLE: PRIMARY CARE MENTAL HEALTH INTEGRATION CONSULT STANDARD TITLE: MENTAL HEALTH CONSULT DATE OF NOTE: MAY 03, 2025@11:04 ENTRY DATE: MAY 03, 2025@11:04:33 AUTHOR: SONIA STAUFFER COSIGNER: URGENCY: STATUS: COMPLETED NAME: RICK CUMMINGS JR SSN: [id number] DATE OF : Jul TIME SPENT WITH PATIENT: 30 minutes DIAGNOSIS TREATED: MDD, dt medical conditions; memory impacted- so stated CPT Code: 14194 SERVICE CONNECTION: Service Connected: 70% Rated Disabilities: SUPERFICIAL SCARS (10% SC) 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 Sherwood was informed of the limits of confidentiality, as well as the potential risk, benefits, and complications of participating in treatment. The Sherwood/guardian expressed understanding and consented to participate in services. 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 Shira reported he was fine in moving forward with the [facility] despite his driving, and his children in the backseat. Whitneyt indicated he did not want to wait, and wanted to move forward. RELEVANT HISTORY/PRESENTING CONCERN: Patient is a 39 y/o . - CC: memory is getting worse, and has been so for years. Has a special needs son who requires 5 meds, and has almost overdosed him multiple times due to forgetting to give him meds- he is no longer able to administer his meds. Will get into his car to go somewhere and forget where he's going. Reports it's excessive and happening more often. Has 7 kids and understands is also stress related. Shira also reported roller coaster emotions and feels he will get upset for no reason, I'll get depressed and I don't even know what it's for and I'll sleep for like 3 days straight. - psychosocial: Shira lives with his and 3 children (halftime), 1 daughter and one son. They also have 2 dogs, a guinea pig, a cat and fish. - occupational: unemployed and also disabled (due to vertigo, hx of aneurism, and weak left side). 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 - trauma hx: Due to the brevity of the session, this was not assessed. Mental Health History: Denies prior inpatient hospitalizations. Denies any current psychotropic tx. Denies any previous psychotropic tx. Denies any previous counseling or psychotherapy. There is one psychiatry appt in 2010. Family mental health history: Siblings with addiction, father alcoholism, Mother with long history of severe chronic illnesses and dealt with depression as a result. Relevant Medical History: history of seizures, right side ataxia, imbalance, pulsating in his ears. While in the was hospitalized [id number] due to traumatic brain injury. 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 I didn't call the hospital right away,[but things quickly escalated, medically] I rolled down the steps of my building bc the left side of my body was fine, but my right side of my body had a seizure- that's where my aneurism was. I couldn't call out for help, but someone passing, who was a doctor, by saw me on the ground. I was in a comma for 3 months. I a few times. They didn't think I'd see, walk or talk again. Vet reported some of the retirement side effects they explained included poor memory. Although vet was told poor memory could be a side effect, they did not know to what extent. Cultural Dynamics: I had a bad upbringing, daddy issues- he's broken a couple bones before. SYMPTOMS [rated on a scale from 1-10 with 10=perfect/1= extreme impairment]: Sleep: 8 Interest: 3 Energy: fluctuates from 1 to 9, typically a 4 Concentration: poor attention span, attempts to multi-task but doesn't finish Appetite: 6 Psychomotor: wnl, sitting in a car Mood: frustrated, melancholy. Guilt: Endorsed the fact that it was me who wanted to have a kid and she had triplets, the other 2 , and it was me who wanted to keep the third one, so it was me who wanted to keep him and he has all these disabilities which does take away from the other kids, it's not that i don't' want him, but i do have the guilt. HEALTH FACTORS: - ETOH use: drinks every day, in the evening has a 32 ounce tall boy - Substance use: cannabis every night, and reports if he doesn't smoke I plumet, it's almost like a crutch, I used to enjoy it but it's more like a crutch. Consumes a half ounce of cannabis a month. - Tobacco use: smokes 1 ppd - Caffeine use: soda, coffee in winter - BMI: 22.3 - Most Recent HGA1C 5.9 % 03/29/2025 09:59 BEHAVIORAL OBSERVATIONS/MENTAL STATUS: - Affect: euthymic - Thought: logical & linear - Hallucination: none reported or observed - Delusions: none reported or observed - Judgment/Insight: good, good - Orientation: x 3 Risk Assessment- Vet denied any homicidal ideations, urges, or intent. Suicidal ideation present? No History of suicide attempts? (include description and year if known) Yes, multiple from [id number] following a brain injury was hospitalized for 2 straight years. Due to brain injury, depression, and erratic behavior from the brain injury nurses had to stop him from attempting suicide. Family history of suicide? Yes, when vet was 15 his mother jumped out of a 2nd story building. His sister has also attempted. OEF/OIF Sherwood? No Has reported any significant clinical or psychosocial changes in the past 90 days? None reported. ACUTE RISK FACTORS: None identified. FIREARMS AVAILABILITY: Denied MEDICATIONS: Date: May 03, 2025 PATIENT MEDICATION INFORMATION Page: 1 PRINTED BY THE [facility] AT: [facility] FOR PRESCRIPTION REFILLS CALL Name: [facility] - DAVON ORTIZ [facility] ([facility] MORNING NOON EVENING BEDTIME COMMENTS ~~~~~~~~~~~~~~~~~~~~~~~~~~~~~ ~~~~~~~~~~~~~~~~~~~~~~~~~~~~~~ ~~~~~~~~~~~~~~ NICOTINE 21MG/24HR PATCH APPLY 1 PATCH TO SKIN SITE EVERY MORNING REMOVE OLD PATCH BEFORE APPLYING NEW ONE. ROTATE SITES. DO NOT SMOKE WHILE WEARING PATCH. 1 refill(s) remaining prior to Mar 30, 2026 (Rx #[id number]) UNITS PER DOSE: ~~~~~~~~~~~~~~~~~~~~~~~~~~~~~ ~~~~~~~~~~~~~~~~~~~~~~~~~~~~~~ ~~~~~~~~~~~~~~ NICOTINE POLACRILEX 2MG MINI LOZENGE DISSOLVE 1 LOZENGE BY MOUTH EVERY 4 HOURS NEEDED .DO NOT SMOKE WHILE USING THIS MEDICATION. 1 refill(s) remaining prior to Mar 30, 2026 (Rx #[id number]) UNITS PER DOSE: MITIGATING FACTORS: Ethical, cheondoism beliefs Hopes and plans for future Beliefs for continued living Explicit reasons for living ESTIMATED RISK LEVEL: Low/minimal evidence of imminent risk: Sherwood has no history of SI/HI and does not appear to be in eminent danger to self or others. INITIAL INTERVENTION: Worked on building trust and rapport, assessment and treatment planning. Discussed mental health treatment options at this [facility]. Identified treatment goals: to improve memory and concentration. Feels his mood swings are directly related to his poor memory and concentration. IMPRESSIONS: is a 39-year old MALE, who presents with symptoms of . Used motivational interviewing to discuss readiness for change. Provided psychoeducation about the impact of depression upon thoughts and behaviors. Introduced behavioral activation. Introduced the cognitive model. SAFETY/CARE PLAN: Discussed/Reviewed medication compliance Identification and management of stressors/triggers discussed Suicide Prevention Hotline card provided ( ) Discussed availability of 911 and 24 hour Emergency Room (at [place] or elsewhere) Engaged Sherwood in shared decision making when creating the following initial treatment plan: - Pt will begin time-limited individual therapy with this provider. Pt scheduled for follow-up. - Pt expressed interest in cognitive/memory testing. Discussed a referral for baseline testing. Vet was told at the time of his aneurism he'd have some memory loss, but they were unable to say to what extent and when the loss would start to be noticeable. - Discussed referral for HSAT. - Provided with typewriter tester's contact information and Veterans Crisis Number. Also informed about the services provided by Primary Care Psychology. is aware more specific treatment goals/recommendations for care with this provider will be discussed collaboratively with Sherwood at follow-up session, scheduled for this providers next available. /jese/ Sonia Stauffer Psy.D. Staff Psychologist Signed: 05/09/2025 08:38 SONIA STAUFFER [facility]
--- OUTSIDE RECORDS SUMMARY | 2025-05-14 11:31 | XMS_ITS | Patient Health Record ---
Author Organization [facility] Address [address] [place] [address] Care Team Providers Care Chief Scientist Name Role Phone Goran Mckinney Primary Care [...]
--- OUTSIDE RECORDS SUMMARY | 2025-05-14 11:32 | XMS_ITS | Continuity of Care Document ---
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 It does not include entries that were removed or entered in error. Problem Status Onset Date Problem Type Date of Resolution Comments Source Adjustment disorder with depressed mood (SNOMED CT 12665023) Active Condition [facility] Cerebral aneurysm, nonruptured (ICD-9-CM 437.3) Active Condition [facility] Congenital arteriovenous malformation Active Condition Jan 17, 2011 Entered By: CHIOMA QUAN Comment: 12/2007 surgery in [facility] Diplopia * (ICD-9-CM 368.2) Active Condition [facility] Myopia Active Condition [facility] Pain of joint of knee (SNOMED CT 1661212780) Active Condition [facility] Pneumonia, organism unspecified Active Condition Jan 17, 2011 Entered By: CHIOMA QUAN Comment: August 2010, received pneumovax vaccineMar 08, 2011 Entered By: CHIOMA QUAN Comment: 02/20/11 rul and rml [facility] Sleep disturbances Active Condition [facility] Tinnitus Active Condition [facility] Vitamin D Deficiency (SCT 44133317) Active Condition [facility] Chest Pain * (ICD-9-CM 786.50) Inactive Condition 03/18/2023 [facility] Cyst, ganglion Inactive Condition 03/18/2023 Jan 17, 2011 Entered By: CHIOMA QUAN Comment: right wrist [facility] Encounters for unspecified Administrative Purpose (ICD-9-CM V68.9) Inactive Condition 03/18/2023 [facility] NEUTROPENIA, unspecified Inactive Condition 03/18/2023 [facility] Vitamin D Deficiency Inactive Condition 03/18/2023 [facility] visit for: services physical separation [...] visit for: administrative purpose Inactive Condition [facility] Patient Counseling: Active Condition Do D [...] DoD difficulty swallowing (dysphagia) Active Condition [facility] Patient Counseling: Inquiry & Counseling Active Condition DoD INTRACEREBRAL HEMORRHAGE Active Condition DoD BACTEREMIA Active Condition [facility]D ARTERIOVENOUS MALFORMATION (CNC GRINDER) Active Condition [facility] Dietary Counseling Pertaining To Specific Condition Inactive Condition [facility] visit for: screening exam pulmonary tuberculosis [...] SYNDROME LEFT Active Condition DoD Diagnosis: ICD-10-CM G47.30 Sleep apnea, unspecified Active Diagnosis 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 Medications Combined list of outpatient medications [...] WHILE WEARING PATCH. TRANSD ERMAL ACTIVE 03/30/2026 [id number] AARON KENNEDY 2024 28 [facility] NICOTINE POLACRILEX 2MG MINI LOZENGE DISSOLVE 1 LOZENGE BY MOUTH EVERY 4 HOURS NEEDED .DO NOT SMOKE WHILE USING THIS MEDICATI ON. ORAL ACTIVE 03/30/2026 [id number] 5 AARON KENNEDY 2024 162 [facility] Allergies, Adverse Reactions, Alerts Combined list of allergies 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 It does not include entries that were removed or entered in error. Substance Category Reaction Severity Reaction type Status Date Reported Comments Source ADHESIVE TAPE Propensity to adverse reaction (finding) Eruption active 1 [facility] OTHER Drug allergy (disorder) Unknown active 8 [facility] Immunizations Combined list of available immunizations from the 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 Immunization Series Date Given Administered By Site Reaction Lot Number CVX Code Drug Coke Wheeler Status Comments Source PNEUMOCOCCAL POLYSACCHARID E PPV23 2022 [facility] H R RIGHT DELTO ID [id number] 33 complet ed [facility] TDAP 2022 [facility] H R LEFT DELTO ID [id number] 115 complet ed [facility] TDAP 5 2017 115 complet ed HISTORICA L INFORMATI ON - FROM OTHER [facility] INFLUENZA, UNSPECIFIED FORMULATION [address] [facility] INFLUENZA, UNSPECIFIED FORMULATION 2010 88 complet ed [facility] tuberculin skin test; purified protein derivative solution, intradermal 0 2009 KAREEN ARMENDARIZ [id number] [place] [facility] ([place]) complet ed tuberculi n skin test; purified protein derivativ e solution, intraderm al DoD tuberculin skin test; purified protein derivative solution, intradermal 1 2009 JAZZ DAVIS [id number] [facility] complet ed tuberculi n skin test; purified protein derivativ e solution, intraderm al DoD tuberculin skin test; purified protein derivative solution, intradermal 1 2009 CIERA FOREMAN [id number] [facility] complet ed tuberculi n skin test; purified protein derivativ e solution, intraderm al DoD tuberculin skin test; purified protein derivative solution, intradermal 1 2009 WILTON SILVA [id number] [facility] ([facility]) complet ed tuberculi n skin test; purified protein derivativ e solution, intraderm al DoD typhoid Vi capsular polysaccharid e vaccine 1 2009 WILTON SILVA [id number] [facility]) complet ed typhoid Vi capsular polysacch aride vaccine DoD Novel Influenza-H1N 1-09, live virus for nasal administratio n 1 2009 WILTON SILVA [id number] [employer] (MED) complet ed Novel Influenza -E5T0-02, live virus for nasal administr ation DoD influenza virus vaccine, live, attenuated, for intranasal use 0 2008 UNK 111 Unknown (UNK) comple t ed influenza virus vaccine, live, attenuate d, for intranasa l use DoD influenza virus vaccine, live, attenuated, for intranasal use 1 2008 SERA PRASAD [id number] [employer] (MED) complet ed influenza virus vaccine, live, attenuate d, for intranasa l use DoD tuberculin skin test; purified protein derivative solution, intradermal 1 2007 KAREEN ARMENDARIZ [id number] [place] () complet ed tuberculi n skin test; purified protein derivativ e solution, intraderm al DoD influenza virus vaccine, live, attenuated, for intranasal use 1 2007 KAREEN ARMENDARIZ [id number] 111 [employer] (MED) complet ed influenza virus vaccine, live, attenuate d, for intranasa l use DoD influenza virus vaccine, unspecified formulation 0 2006 UNK 88 Unknown (UNK) comple t ed influenza virus vaccine, unspecifi ed formulati on DoD tuberculin skin test; purified protein derivative solution, intradermal 1 2006 JAZZ DAVIS [id number] [facility] ([facility] complet ed tuberculi n skin test; purified protein derivativ e solution, intraderm al DoD influenza virus vaccine, live, attenuated, for intranasal use 1 2006 PASQUALE SINHA [id number] 111 [employer]. (MED) complet ed influenza virus vaccine, live, attenuate d, for intranasa l use DoD hepatitis B vaccine, adult dosage 3 2006 UNK 43 Unknown (UNK) comple t ed hepatitis B vaccine, adult dosage DoD hepatitis A and hepatitis B vaccine 3 2006 ROQUE WHITNEY [id number] [facility] ([facility] complet ed hepatitis A and [...] L INFORMATI ON - FROM OTHER REGISTRY, [facility] HEP B, ADOLESCENT OR PEDIATRIC 2 1997 08 complet ed HISTORICA L INFORMATI ON - FROM OTHER REGISTRY, [facility] HEP B, ADOLESCENT OR PEDIATRIC 1 1997 08 complet ed HISTORICA L INFORMATI ON - FROM OTHER REGISTRY, [facility] DTP 4 1991 01 complet ed HISTORICA L INFORMATI ON - [facility], UNSPECIF[facility] FORMUL[facility] 1 1991 17 complet ed HISTORICA L INFORMATI ON - FROM OTHER REGISTRY, [facility] MMR 2 1991 03 complet ed HISTORICA L INFORMATI ON - FROM OTHER REGISTRY, [facility] OPV, TRIVALENT 4 1991 02 complet ed HISTORICA L INFORMATI ON - FROM OTHER REGISTRY, [facility] DTP 3 1989 complet ed HISTORICA L INFORMATI ON - FROM OTHER REGISTRY, [facility] OPV, TRIVALENT 3 1989 02 complet ed HISTORICA L INFORMATI ON - FROM OTHER REGISTRY, [facility] MMR 1 1988 03 complet ed HISTORICA L INFORMATI ON - FROM OTHER REGISTRY, [facility] DTP 3 1987 complet ed HISTORICA L INFORMATI ON - FROM OTHER REGISTRY, [facility] OPV, TRIVALENT 3 1987 02 complet ed HISTORICA L INFORMATI ON - FROM OTHER REGISTRY, [facility] DTP 2 1987 complet ed HISTORICA L INFORMATI ON - FROM OTHER REGISTRY, [facility] OPV, TRIVALENT 2 1987 complet ed HISTORICA L INFORMATI ON - FROM OTHER REGISTRY, [facility] DTP 1 1987 complet ed HISTORICA L INFORMATI ON - FROM OTHER REGISTRY, [facility] OPV, TRIVALENT 1 1987 complet ed HISTORICA L INFORMATI ON - FROM OTHER REGISTRY, [facility] Results Combined list of recent chemistry, hematology [...] Mar 29, 2025 08:53 AM Reporting Lab: [place] [id number] Performing Lab: [address] [facility] TSH W/ REFLEX FT4 (STL) THYROTROPIN [UNITS/VOLUM E] IN SERUM OR PLASMA 1.606 u[IU]/ mL 0.47 - 5 03/29 Specimen Type: PLASMA No comment entered. Ordering Provider: Nicanor KENNEDY Report Released Date/Time: Mar 29, 2025 08:53 AM Reporting Lab: [address] [address] Performing Lab: [phone] [place] [address] [facility] CBC LEUKOCYTES [#/VOLUME] IN BLOOD BY AUTOMATED COUNT 5.4 10*3/u L 3.6 - 11.2 03/29 Specimen Type: BLOOD No comment entered. Ordering Provider: Nicanor KENNEDY Report Released Date/Time: Mar 29, 2025 08:53 AM Reporting Lab: [place] [address] Performing Lab: [address] [address] [facility] CBC ERYTHROCYTES [#/VOLUME] IN BLOOD BY AUTOMATED COUNT 4.83 10*6/u L 4.10 - 5.70 03/29 Specimen Type: BLOOD No comment entered. Ordering Provider: Nicanor KENNEDY Report Released Date/Time: Mar 29, 2025 08:53 AM Reporting Lab: [address] [address] Performing Lab: [address] [address] [facility] CBC HEMOGLOBIN [MASS/VOLUME ] IN BLOOD 14.9 g/dL 13.1 - 16.8 03/29 Specimen Type: BLOOD No comment entered. Ordering Provider: Nicanor KENNEDY Report Released Date/Time: Mar 29, 2025 08:53 AM Reporting Lab: [address] [address] Performing Lab: [address] [phone] [place] [address] [facility] CBC HEMATOCRIT [VOLUME FRACTION] OF BLOOD 44.7 38.2 - 48.4 03/29 Specimen Type: BLOOD No comment entered. Ordering Provider: Nicanor KENNEDY Report Released Date/Time: Mar 29, 2025 08:53 AM Reporting Lab: [address] [address] Performing Lab: [address] [address] [facility] CBC MCV [ENTITIC VOLUME] BY AUTOMATED COUNT 92.5 fL 80.0 - 100.0 03/29 Specimen Type: BLOOD No comment entered. Ordering Provider: Nicanor KENNEDY Report Released Date/Time: Mar 29, 2025 08:53 AM Reporting Lab: [address] [address] Performing Lab: [address] [phone] [facility] CBC MCH [ENTITIC MASS] BY AUTOMATED COUNT 30.8 pg 27.0 - 34.0 03/29 Specimen Type: BLOOD No comment entered. Ordering Provider: Nicanor KENNEDY Report Released Date/Time: Mar 29, 2025 08:53 AM Reporting Lab: [address] [address] Performing Lab: [place] [phone] [facility] CBC MCHC [MASS/VOLUME ] BY AUTOMATED COUNT 33.3 g/dL 33.0 - 36.0 03/29 Specimen Type: BLOOD No comment entered. Ordering Provider: Nicanor KENNEDY Report Released Date/Time: Mar 29, 2025 08:53 AM Reporting Lab: [place] [phone] Performing Lab: [place] [phone] [facility] CBC PLATELETS [#/VOLUME] IN BLOOD BY AUTOMATED COUNT 223 10*3/u L 150 - 400 03/29 Specimen Type: BLOOD No comment entered. Ordering Provider: Nicanor KENNEDY Report Released Date/Time: Mar 29, 2025 08:53 AM Reporting Lab: [address] [address] Performing Lab: [place] [phone] [place] [address] [facility] CBC PLATELET MEAN VOLUME [ENTITIC VOLUME] IN BLOOD BY AUTOMATED COUNT 10.6 fL 7.5 - 11.2 03/29 Specimen Type: BLOOD No comment entered. Ordering Provider: Nicanor KENNEDY Report Released Date/Time: Mar 29, 2025 08:53 AM Reporting Lab: [place] [phone] Performing Lab: [place] [phone] [place] [address] [facility] CBC ERYTHROCYTE DISTRIBUTION WIDTH [RATIO] BY AUTOMATED COUNT 12.0 11.8 - 15.1 03/29 Specimen Type: BLOOD No comment entered. Ordering Provider: Nicanor KENNEDY Report Released Date/Time: Mar 29, 2025 08:53 AM Reporting Lab: [facility] [address] [facility] [address] Performing Lab: [facility] [address] [place] [phone] [facility] CBC LYMPHOCYTES/ 100 LEUKOCYTES IN BLOOD BY AUTOMATED COUNT 37 03/29 Specimen Type: BLOOD No comment entered. Ordering Provider: Nicanor KENNEDY Report Released Date/Time: Mar 29, 2025 08:53 AM Reporting Lab: [facility] [address] [facility] [address] Performing Lab: [facility] [address] [place] [phone] [facility] CBC MONOCYTES/10 0 LEUKOCYTES IN BLOOD BY AUTOMATED COUNT 10 03/29 Specimen Type: BLOOD No comment entered. Ordering Provider: Nicanor KENNEDY Report Released Date/Time: Mar 29, 2025 08:53 AM Reporting Lab: [facility] [address] [facility] [address] Performing Lab: [facility] [address] [place] [phone] [facility] CBC NEUTROPHILS/ 100 LEUKOCYTES IN BLOOD BY AUTOMATED COUNT 48 03/29 Specimen Type: BLOOD No comment entered. Ordering Provider: Nicanor KENNEDY Report Released Date/Time: Mar 29, 2025 08:53 AM Reporting Lab: [facility] [address] [facility] [address] Performing Lab: [facility] [address] [place] [phone] [facility] CBC EOSINOPHILS/ 100 LEUKOCYTES IN BLOOD BY AUTOMATED COUNT 4 03/29 Specimen Type: BLOOD No comment entered. Ordering Provider: Nicanor KENNEDY Report Released Date/Time: Mar 29, 2025 08:53 AM Reporting Lab: [facility] [address] [place] [address] Performing Lab: [address] [address] [facility] CBC BASOPHILS/10 0 LEUKOCYTES IN BLOOD BY AUTOMATED COUNT 1 03/29 Specimen Type: BLOOD No comment entered. Ordering Provider: Nicanor KENNEDY Report Released Date/Time: Mar 29, 2025 08:53 AM Reporting Lab: [address] [address] Performing Lab: [address] [address] [facility] CBC LYMPHOCYTES [#/VOLUME] IN BLOOD BY AUTOMATED COUNT 1.99 10*3/u L 0.77 - 4.50 03/29 Specimen Type: BLOOD No comment entered. Ordering Provider: Nicanor KENNEDY Report Released Date/Time: Mar 29, 2025 08:53 AM Reporting Lab: [address] [address] Performing Lab: [address] [address] [facility] CBC MONOCYTES [#/VOLUME] IN BLOOD BY AUTOMATED COUNT 0.52 10*3/u L 0.19 - 0.80 03/29 Specimen Type: BLOOD No comment entered. Ordering Provider: Nicanor KENNEDY Report Released Date/Time: Mar 29, 2025 08:53 AM Reporting Lab: [address] [address] Performing Lab: [address] [address] [facility] CBC NEUTROPHILS [#/VOLUME] IN BLOOD BY AUTOMATED COUNT 2.62 10*3/u L 2.10 - 8.00 03/29 Specimen Type: BLOOD No comment entered. Ordering Provider: Nicanor KENNEDY Report Released Date/Time: Mar 29, 2025 08:53 AM Reporting Lab: [address] [address] Performing Lab: [facility] [address] [facility] [address] [facility] CBC EOSINOPHILS [#/VOLUME] IN BLOOD BY AUTOMATED COUNT 0.23 10*3/u L 0.00 - 0.60 03/29 Specimen Type: BLOOD No comment entered. Ordering Provider: Nicanor KENNEDY Report Released Date/Time: Mar 29, 2025 08:53 AM Reporting Lab: [address] [address] Performing Lab: [address] [address] [facility] CBC BASOPHILS [#/VOLUME] IN BLOOD BY AUTOMATED COUNT 0.07 10*3/u L 0.00 - 0.20 03/29 Specimen Type: BLOOD No comment entered. Ordering Provider: Nicanor KENNEDY Report Released Date/Time: Mar 29, 2025 08:53 AM Reporting Lab: [address] [address] Performing Lab: [address] [phone] [address] [facility] VITAMIN D, 25-HYDROXY 25-HYDROXYVI TAMIN D3 [MASS/VOLUME ] IN SERUM OR PLASMA 37.6 ng/mL 30 - 96 03/29 Specimen Type: SERUM No comment entered. Ordering Provider: Nicanor KENNEDY Report Released Date/Time: Mar 29, 2025 08:53 AM Reporting Lab: [address] [address] Performing Lab: [address] [address] [facility] LIPID PANEL (STL) CHOLESTEROL [MASS/VOLUME ] IN SERUM OR PLASMA 199 mg/dL 0 - 200 03/29 Specimen Type: PLASMA Comment: No hemolysis noted. Ordering Provider: Nicanor KENNEDY Report Released Date/Time: Mar 29, 2025 08:53 AM Reporting Lab: [place] [phone] Performing Lab: [facility] [address] [facility] [address] [facility] LIPID PANEL (STL) TRIGLYCERIDE [MASS/VOLUME ] IN SERUM OR PLASMA 196 mg/dL 0 - 150 03/29 H Specimen Type: PLASMA Comment: No hemolysis noted. Ordering Provider: Nicanor KENNEDY Report Released Date/Time: Mar 29, 2025 08:53 AM Reporting Lab: [facility] [address] [facility] [address] Performing Lab: [place] [address] [facility] [address] [facility] LIPID PANEL (STL) CHOLESTEROL IN LDL [MASS/VOLUME ] IN SERUM OR PLASMA BY CALCULATION 119 mg/dL 03/29 Specimen Type: PLASMA Comment: No hemolysis noted. Ordering Provider: Nicanor KENNEDY Report Released Date/Time: Mar 29, 2025 08:53 AM Reporting Lab: [facility] [address] [facility] [address] Performing Lab: [place] [address] [facility] [address] [facility] LIPID PANEL (STL) CHOLESTEROL IN HDL [MASS/VOLUME ] IN SERUM OR PLASMA 41 mg/dL 40 03/29 Specimen Type: PLASMA Comment: No hemolysis noted. Ordering Provider: Nicanor KENNEDY Report Released Date/Time: Mar 29, 2025 08:53 AM Reporting Lab: [facility] [address] [facility] [address] Performing Lab: [place] [address] [facility] [address] [facility] COMPREHENSI VE METABOLIC PANEL CREATININE [MASS/VOLUME ] IN SERUM OR PLASMA 0.94 mg/dL 0.7 - 1.3 03/29 Specimen Type: PLASMA Comment: No hemolysis noted. Ordering Provider: Nicanor KENNEDY Report Released Date/Time: Mar 29, 2025 08:53 AM Reporting Lab: [facility] [address] [facility] [address] Performing Lab: [facility] [address] [facility] [address] [facility] COMPREHENSI VE METABOLIC PANEL UREA NITROGEN [MASS/VOLUME ] IN SERUM OR PLASMA 16.7 mg/dL 9.0 - 25.0 03/29 Specimen Type: PLASMA Comment: No hemolysis noted. Ordering Provider: Nicanor KENNEDY Report Released Date/Time: Mar 29, 2025 08:53 AM Reporting Lab: [facility] [address] [facility] [address] Performing Lab: [place] [address] [facility] [address] [facility] COMPREHENSI VE METABOLIC PANEL GLUCOSE [MASS/VOLUME ] IN SERUM OR PLASMA 97 mg/dL 72 - 99 03/29 Specimen Type: PLASMA Comment: No hemolysis noted. Ordering Provider: Nicanor KENNEDY Report Released Date/Time: Mar 29, 2025 08:53 AM Reporting Lab: [facility] [address] [facility] [address] Performing Lab: [place] [address] [facility] [address] [facility] COMPREHENSI VE METABOLIC PANEL SODIUM [MOLES/VOLUM E] IN SERUM OR PLASMA 139 meq/L 136 - 145 03/29 Specimen Type: PLASMA Comment: No hemolysis noted. Ordering Provider: Nicanor KENNEDY Report Released Date/Time: Mar 29, 2025 08:53 AM Reporting Lab: [facility] [address] [facility] [address] Performing Lab: [place] [address] [facility] [address] [facility] COMPREHENSI VE METABOLIC PANEL POTASSIUM [MOLES/VOLUM E] IN SERUM OR PLASMA 4.0 meq/L 3.5 - 5 03/29 Specimen Type: PLASMA Comment: No hemolysis noted. Ordering Provider: Nicanor KENNEDY Report Released Date/Time: Mar 29, 2025 08:53 AM Reporting Lab: [facility] [address] [facility] [address] Performing Lab: [facility] [address] [place] [address] [facility] COMPREHENSI VE METABOLIC PANEL CHLORIDE [MOLES/VOLUM E] IN SERUM OR PLASMA 106 meq/L 98 - 107 03/29 Specimen Type: PLASMA Comment: No hemolysis noted. Ordering Provider: Nicanor KENNEDY Report Released Date/Time: Mar 29, 2025 08:53 AM Reporting Lab: [address] [address] Performing Lab: [address] [address] [facility] COMPREHENSI VE METABOLIC PANEL CARBON DIOXIDE, TOTAL [MOLES/VOLUM E] IN SERUM OR PLASMA 24 meq/L 22 - 31 03/29 Specimen Type: PLASMA Comment: No hemolysis noted. Ordering Provider: Nicanor KENNEDY Report Released Date/Time: Mar 29, 2025 08:53 AM Reporting Lab: [address] [address] Performing Lab: [address] [address] [facility] COMPREHENSI VE METABOLIC PANEL CALCIUM [MASS/VOLUME ] IN SERUM OR PLASMA 9.1 mg/dL 8.4 - 10.4 03/29 Specimen Type: PLASMA Comment: No hemolysis noted. Ordering Provider: Nicanor KENNEDY Report Released Date/Time: Mar 29, 2025 08:53 AM Reporting Lab: [address] [address] Performing Lab: [address] [address] [facility] COMPREHENSI VE METABOLIC PANEL PROTEIN [MASS/VOLUME ] IN SERUM OR PLASMA 7.2 g/dL 6 - 8.6 03/29 Specimen Type: PLASMA Comment: No hemolysis noted. Ordering Provider: Nicanor KENNEDY Report Released Date/Time: Mar 29, 2025 08:53 AM Reporting Lab: [facility] [address] [facility] [address] Performing Lab: [facility] [address] [place] [address] [facility] COMPREHENSI VE METABOLIC PANEL ALBUMIN [MASS/VOLUME ] IN SERUM OR PLASMA 4.5 g/dL 3.4 - 5 03/29 Specimen Type: PLASMA Comment: No hemolysis noted. Ordering Provider: Nicanor KENNEDY Report Released Date/Time: Mar 29, 2025 08:53 AM Reporting Lab: [facility] [address] [place] [address] Performing Lab: [place] [phone] [facility] COMPREHENSI VE METABOLIC PANEL BILIRUBIN.TO ANTONI [MASS/VOLUME ] IN SERUM OR PLASMA 0.3 mg/dL 0.2 - 1.2 03/29 Specimen Type: PLASMA Comment: No hemolysis noted. Ordering Provider: Nicanor KENNEDY Report Released Date/Time: Mar 29, 2025 08:53 AM Reporting Lab: [facility] [facility] [address] [place] [phone] Performing Lab: [facility] [address] [place] [phone] [facility] COMPREHENSI VE METABOLIC PANEL ALKALINE PHOSPHATASE [ENZYMATIC ACTIVITY/VOL UME] IN SERUM OR PLASMA 83 U/L 40 - 150 03/29 Specimen Type: PLASMA Comment: No hemolysis noted. Ordering Provider: Nicanor KENNEDY Report Released Date/Time: Mar 29, 2025 08:53 AM Reporting Lab: [facility] [address] [place] [phone] Performing Lab: [facility] [address] [place] [phone] [facility] COMPREHENSI VE METABOLIC PANEL ASPARTATE AMINOTRANSFE RASE [ENZYMATIC ACTIVITY/VOL UME] IN SERUM OR PLASMA 31 U/L 5 - 34 03/29 Specimen Type: PLASMA Comment: No hemolysis noted. Ordering Provider: Nicanor KENNEDY Report Released Date/Time: Mar 29, 2025 08:53 AM Reporting Lab: [address] [phone] Performing Lab: [address] [address] [facility] COMPREHENSI VE METABOLIC PANEL ALANINE AMINOTRANSFE RASE [ENZYMATIC ACTIVITY/VOL UME] IN SERUM OR PLASMA 26 U/L 8 - 40 03/29 Specimen Type: PLASMA Comment: No hemolysis noted. Ordering Provider: Nicanor KENNEDY Report Released Date/Time: Mar 29, 2025 08:53 AM Reporting Lab: [address] [address] Performing Lab: [place] [id number] [place] [address] [facility] COMPREHENSI VE METABOLIC PANEL GLOMERULAR FILTRATION RATE/1.73 SQ M.PREDICTED [VOLUME RATE/AREA] IN SERUM, PLASMA OR BLOOD BY CREATININE-B ASED FORMULA (CKD-EPI 2020) 107.1 60 03/29 Specimen Type: PLASMA Comment: No hemolysis noted. Ordering Provider: Nicanor KENNEDY Report Released Date/Time: Mar 29, 2025 08:53 AM Reporting Lab: [facility] [address] [place] [phone] Performing Lab: [address] [phone] [address] [facility] LIPID PANEL (STL) CHOLESTEROL [MASS/VOLUME ] IN SERUM OR PLASMA 209 mg/dL 0 - 200 03/18 H Specimen Type: PLASMA Comment: No hemolysis noted. Ordering Provider: Nicanor KENNEDY Report Released Date/Time: Mar 18, 2024 10:55 AM Reporting Lab: [address] [address] Performing Lab: [address] [address] [facility] LIPID PANEL (STL) TRIGLYCERIDE [MASS/VOLUME ] IN SERUM OR PLASMA 247 mg/dL 0 - 150 03/18 H Specimen Type: PLASMA Comment: No hemolysis noted. Ordering Provider: Nicanor KENNEDY Report Released Date/Time: Mar 18, 2024 10:55 AM Reporting Lab: [facility] [address] [place] [phone] Performing Lab: [facility] [address] [place] [phone] [facility] LIPID PANEL (STL) CHOLESTEROL IN LDL [MASS/VOLUME ] IN SERUM OR PLASMA BY CALCULATION 106 mg/dL 03/18 Specimen Type: PLASMA Comment: No hemolysis noted. Ordering Provider: Nicanor KENNEDY Report Released Date/Time: Mar 18, 2024 10:55 AM Reporting Lab: [address] [address] Performing Lab: [address] [phone] [address] [facility] LIPID PANEL (STL) CHOLESTEROL IN HDL [MASS/VOLUME ] IN SERUM OR PLASMA 54 mg/dL 40 03/18 Specimen Type: PLASMA Comment: No hemolysis noted. Ordering Provider: Nicanor KENNEDY Report Released Date/Time: Mar 18, 2024 10:55 AM Reporting Lab: [facility] [address] [place] [phone] Performing Lab: [address] [address] [facility] COMPREHENSI VE METABOLIC PANEL CREATININE [MASS/VOLUME ] IN SERUM OR PLASMA 1.14 mg/dL 0.7 - 1.3 03/18 Specimen Type: PLASMA Comment: No hemolysis noted. Ordering Provider: Nicanor KENNEDY Report Released Date/Time: Mar 18, 2024 10:55 AM Reporting Lab: [facility] [address] [place] [phone] Performing Lab: [address] [address] [facility] COMPREHENSI VE METABOLIC PANEL UREA NITROGEN [MASS/VOLUME ] IN SERUM OR PLASMA 16.6 mg/dL 9.0 - 25.0 03/18 Specimen Type: PLASMA Comment: No hemolysis noted. Ordering Provider: Nicanor KENNEDY Report Released Date/Time: Mar 18, 2024 10:55 AM Reporting Lab: [facility] [address] [place] [phone] Performing Lab: [facility] [address] [place] [phone] [facility] COMPREHENSI VE METABOLIC PANEL GLUCOSE [MASS/VOLUME ] IN SERUM OR PLASMA 108 mg/dL 72 - 99 03/18 H Specimen Type: PLASMA Comment: No hemolysis noted. Ordering Provider: Nicanor KENNEDY Report Released Date/Time: Mar 18, 2024 10:55 AM Reporting Lab: [address] [address] Performing Lab: [address] [phone] [facility] COMPREHENSI VE METABOLIC PANEL SODIUM [MOLES/VOLUM E] IN SERUM OR PLASMA 139 meq/L 136 - 145 03/18 Specimen Type: PLASMA Comment: No hemolysis noted. Ordering Provider: Nicanor KENNEDY Report Released Date/Time: Mar 18, 2024 10:55 AM Reporting Lab: [facility] [address] [place] [phone] Performing Lab: [address] [phone] [facility] COMPREHENSI VE METABOLIC PANEL POTASSIUM [MOLES/VOLUM E] IN SERUM OR PLASMA 4.9 meq/L 3.5 - 5 03/18 Specimen Type: PLASMA Comment: No hemolysis noted. Ordering Provider: Nicanor KENNEDY Report Released Date/Time: Mar 18, 2024 10:55 AM Reporting Lab: [facility] [address] [place] [phone] [address]: [facility] [address] [place] [phone] [facility] COMPREHENSI VE METABOLIC PANEL CHLORIDE [MOLES/VOLUM E] IN SERUM OR PLASMA 106 meq/L 98 - 107 03/18 Specimen Type: PLASMA Comment: No hemolysis noted. Ordering Provider: Nicanor KENNEDY Report Released Date/Time: Mar 18, 2024 10:55 AM Reporting Lab: [address] [address] Performing Lab: [address] [phone] [address] [facility] COMPREHENSI VE METABOLIC PANEL CARBON DIOXIDE, TOTAL [MOLES/VOLUM E] IN SERUM OR PLASMA 25 meq/L 22 - 31 03/18 Specimen Type: PLASMA Comment: No hemolysis noted. Ordering Provider: Nicanor KENNEDY Report Released Date/Time: Mar 18, 2024 10:55 AM Reporting Lab: [address] [phone] Performing Lab: [address] [phone] [address] [facility] COMPREHENSI VE METABOLIC PANEL CALCIUM [MASS/VOLUME ] IN SERUM OR PLASMA 9.3 mg/dL 8.4 - 10.4 03/18 Specimen Type: PLASMA Comment: No hemolysis noted. Ordering Provider: Nicanor KENNEDY Report Released Date/Time: Mar 18, 2024 10:55 AM Reporting Lab: [address] [phone] Performing Lab: [address] [phone] [facility] COMPREHENSI VE METABOLIC PANEL PROTEIN [MASS/VOLUME ] IN SERUM OR PLASMA 6.9 g/dL 6 - 8.6 03/18 Specimen Type: PLASMA Comment: No hemolysis noted. Ordering Provider: Nicanor KENNEDY Report Released Date/Time: Mar 18, 2024 10:55 AM Reporting Lab: [address] [address] Performing Lab: [address] [phone] [facility] COMPREHENSI VE METABOLIC PANEL ALBUMIN [MASS/VOLUME ] IN SERUM OR PLASMA 4.3 g/dL 3.4 - 5 03/18 Specimen Type: PLASMA Comment: No hemolysis noted. Ordering Provider: Nicanor KENNEDY Report Released Date/Time: Mar 18, 2024 10:55 AM Reporting Lab: [address] [phone] Performing Lab: [address] [phone] [place] [address] [facility] COMPREHENSI VE METABOLIC PANEL BILIRUBIN.TO ANTONI [MASS/VOLUME ] IN SERUM OR PLASMA 0.5 mg/dL 0.2 - 1.2 03/18 Specimen Type: PLASMA Comment: No hemolysis noted. Ordering Provider: Nicanor KENNEDY Report Released Date/Time: Mar 18, 2024 10:55 AM Reporting Lab: [address] [phone] Performing Lab: [address] [address] [facility] COMPREHENSI VE METABOLIC PANEL ALKALINE PHOSPHATASE [ENZYMATIC ACTIVITY/VOL UME] IN SERUM OR PLASMA 73 U/L 40 - 150 03/18 Specimen Type: PLASMA Comment: No hemolysis noted. Ordering Provider: Nicanor KENNEDY Report Released Date/Time: Mar 18, 2024 10:55 AM Reporting Lab: [address] [address] Performing Lab: [address] [address] [facility] COMPREHENSI VE METABOLIC PANEL ASPARTATE AMINOTRANSFE RASE [ENZYMATIC ACTIVITY/VOL UME] IN SERUM OR PLASMA 28 U/L 5 - 34 03/18 Specimen Type: PLASMA Comment: No hemolysis noted. Ordering Provider: Nicanor KENNEDY Report Released Date/Time: Mar 18, 2024 10:55 AM Reporting Lab: [address] [address] Performing Lab: [address] [phone] [facility] [place] [facility] COMPREHENSI VE METABOLIC PANEL ALANINE AMINOTRANSFE RASE [ENZYMATIC ACTIVITY/VOL UME] IN SERUM OR PLASMA 24 U/L 8 - 40 03/18 Specimen Type: PLASMA Comment: No hemolysis noted. Ordering Provider: Nicanor KENNEDY Report Released Date/Time: Mar 18, 2024 10:55 AM Reporting Lab: [place] [address] Performing Lab: [address] [facility] COMPREHENSI VE METABOLIC PANEL GLOMERULAR FILTRATION RATE/1.73 SQ M.PREDICTED [VOLUME RATE/AREA] IN SERUM, PLASMA OR BLOOD BY CREATININE-B ASED FORMULA (CKD-EPI 2020) 85.5 60 03/18 Specimen Type: PLASMA Comment: No hemolysis noted. Ordering Provider: Nicanor KENNEDY Report Released Date/Time: Mar 18, 2024 10:55 AM Reporting Lab: [facility] [address] [place] [address] Performing Lab: [address] [facility] HGA1C HEMOGLOBIN A1C/HEMOGLOB IN.TOTAL IN BLOOD 5.5 4.0 - 6.0 03/18 Specimen Type: BLOOD No comment entered. Ordering Provider: Nicanor KENNEDY Report Released Date/Time: Mar 18, 2024 10:55 AM Reporting Lab: [place] [address] Performing Lab: [address] [facility] TSH W/ REFLEX FT4 (STL) THYROTROPIN [UNITS/VOLUM E] IN SERUM OR PLASMA 0.605 u[IU]/ mL 0.47 - 5 03/18 Specimen Type: PLASMA No comment entered. Ordering Provider: Nicanor KENNEDY Report Released Date/Time: Mar 18, 2024 10:55 AM Reporting Lab: [facility] [address] [place], [place] [phone] Performing Lab: [facility] [address] [facility] [address] [facility] Vital Signs Combined list of inpatient and outpatient Vital Signs from Department of Defense and Veterans Affairs, ranging from 12 months to all on record, depending upon the facility. Vital Sign Value Date Comments Source SYSTOLIC BLOOD PRESSURE 120 03/29/2025 08:34:07 [facility] DIASTOLIC BLOOD PRESSURE 83 03/29/2025 08:34:07 [facility] PULSE OXIMETRY 97 % 03/29/2025 08:34:07 [facility] WEIGHT 175.7 03/29/2025 08:34:[facility] BMI 22 kg/m2 03/29/2025 08:34:07 [facility] PAIN 0 03/29/2025 08:34:[facility] HEIGHT 74.5 03/29/2025 08:34:07 [facility] TEMPERATURE 97.6 03/29/2025 08:34:07 [facility] PULSE 78 03/29/2025 08:34:[facility] RESPIRATION 18 03/29/2025 08:34:07 [facility] Encounters Combined list of: 1) Encounters from Department of Veterans Affairs facilities going backup to the last 18 months, not all [place] inpatient encounters are included; 2) Encounters from the Department of [facility] facilities going backup to 280 months. Location Location Details Encounter Type Encounter Number Reason For Visit Attending Provider ADM Date DC Date Status Disposition Source [facility]( art Team 1007) OUTPATIENT [id number] HARVEY BAPTISTE 07/08 Released with Work/Duty Limitations [facility]( Smart Team 1007) [facility]( art Team 1007) OUTPATIENT [id number] lft knee pain MIKE FORD 07/22 Released with Work/Duty Limitations [facility]( Smart Team 1007) [facility]([place] [facility] 237) OUTPATIENT [id number] L knee BEN BARNETT 08/26 Released with Work/Duty Limitations [facility]( Militar y Sick Call [facility] 237) [facility](Ar litary Sick Call [place] [address]) OUTPATIENT [id number] left knee AARTI STOVER 09/15 Released w/o Limitations [facility]( Militar y Sick Call [facility] 237) [facility](Ar litary Sick Call [place] [address]) OUTPATIENT [id number] pt c/o N/V. GUSTAVO SAMAYOA 09/16 Sick at Home/Quarter s [facility]( Militar y Sick Call [place] [address]) [facility] [place] [address]) OUTPATIENT [id number] f/u streap throat PRAMOD ARAUJO 10/03 Released w/o Limitations [facility]( [facility] [place] [address]) [facility] Sick Call [place] [address]) OUTPATIENT [id number] pt c/o left knee pain since bootcam p. AARTI STOVER 10/10 Released with Work/Duty Limitations [facility]( [facility] [place] [address]) [facility] Sick Call [place] [address]) OUTPATIENT [id number] knee f/u AARTI STOVER 10/20 Released with Work/Duty Limitations [facility]( [facility] [place] [address]) [facility] Sick Call [place] [address]) OUTPATIENT [id number] eval for ffd GUSTAVO SAMAYOA 10/24 Released with Work/Duty Limitations [facility]( Militar y Sick Call [place] [address]) [facility] Sick Call [place] [address]) OUTPATIENT [id number] sore throat AARTI STOVER 10/29 Sick at Home/Quarter s [facility]( Militar y Sick Call [facility] 237) [facility](Ar litary Sick Call [facility] 237) OUTPATIENT [id number] f/u strep AARTI STOVER 10/30 Released w/o Limitations [facility]( Militar y Sick Call [facility] 237) [facility](Mi litary Sick Call [facility] 237) OUTPATIENT [id number] f/u L knee AARTI STOVER 11/18 Released w/o Limitations [facility] Sick Call [facility] 237) [facility](Ph ysical Therapy/2 37) OUTPATIENT [id number] BRET VILLA 11/21 Released with Work/Duty Limitations [facility]( Physica l Therapy /237) [facility] [place] OUTPATIENT [id number] PHYSICA L GUSTAVO VALLE 03/19 Released w/o Limitations [facility] [place] [place]) OUTPATIENT [id number] RITCHIE JULES 03/19 Released w/o Limitations [facility] [place] [place] OUTPATIENT [id number] KOMAL SYED 03/19 Released w/o Limitations [facility]( [facility]) [facility] [place]) OUTPATIENT [id number] SUB PHYS TAMIA DRUMMOND 03/31 Released w/o Limitations [facility]( [facility] [facility]) [facility] [place](Gr [facility] Immunizat ion) OUTPATIENT [id number] Immuniz ations SAM PIRES 04/08 Released w/o Limitations [facility] [place]( [place] [facility]) [facility] [place]([facility]) OUTPATIENT [id number] SUB DUTY SIMON OAKES 05/01 Released with Work/Duty Limitations [facility] [place]( [facility] [place]([facility]) OUTPATIENT [id number] mental health clearan SIMON Rosario 07/14 Released with Work/Duty Limitations [facility]( [facility]) [facility](Gr [facility]) OUTPATIENT [id number] R Hand injury LIZETH JENKINS 07/17 Released with Work/Duty Limitations [facility] [place]( [place] [facility]) [facility](Immuniz ations [facility]) OUTPATIENT [id number] ppd/flu mist PLASCENCIAYVONNEShalom ARENAS 08/28 Released w/o Limitations [facility](Imm unizati ons [facility] ) [facility](Immuniz ations [facility]) OUTPATIENT [id number] ppd read JAZZ DAVIS 08/31 Released w/o Limitations [facility](Imm unizati ons [facility] ) [facility] ER, DIRECT TO [facility] [id number] ANA HANLEY 01/15 RETURNED TO DUTY [facility](Nutriti on NMCP) INPATIENT [id number] CHIDI Sterling 01/19 Inpatient- Still a Patient [facility](Nut rition NMCP) [facility](Nutriti on NMCP) INPATIENT [id number] TF f/u CHIDI ROBERT 01/24 Inpatient- Still a Patient [facility](Nut rition NM[facility]) [facility](Infecti ous Disease [facility]) INPATIENT [id number] TETO GARCÍA 01/26 Inpatient- Still a Patient [facility](Inf ectious Disease [facility]CP) [facility](Nutriti on NMCP) INPATIENT [id number] TF f/u CHIDI ROBERT 01/27 Inpatient- Still a Patient [facility](Nut rition NMCP) [facility](Infecti ous Disease [facility]CP) INPATIENT [id number] ELIEL TANG 01/27 Inpatient- Still a Patient [facility](Inf ectious Disease [facility]) [facility](Cardiol ogy NMCP) INPATIENT [id number] LUZMARIA Gaming 01/28 Inpatient- Still a Patient [facility](Car diology NMCP) [facility](Social Work [facility]CP) INPATIENT [id number] Psycho- social assessm HECTOR Johnson 02/03 Inpatient- Still a Patient [facility](Soc ial Work NMCP) [facility](Speech Pathology NMCP) INPATIENT [id number] Evaluat e for Passy Melba Speakin g Valve ODALIS RODRIGUEZ 02/07 Inpatient- Still a Patient [facility](Spe ech Patholo gy NMCP) [facility](Speech Pathology NMCP) INPATIENT [id number] AVM ODALIS RODRIGUEZ 02/08 Inpatient- Still a Patient [facility](Spe ech Patholo gy NMCP) [facility](Speech Pathology NMCP) INPATIENT [id number] ODALIS RODRIGUEZ 02/09 Inpatient- Still a Patient [facility](Spe ech Patholo gy NMCP) [facility](Speech Pathology NMCP) INPATIENT [id number] ODALIS RODRIGUEZ 02/10 Inpatient- Still a Patient [facility](Spe ech Patholo gy NMCP) [facility](Occ Therapy NMCP) [id number] [facility]- Still a Patient [facility](Occ Therapy NMCP) [facility](Occ Therapy NMCP) INPAT[facility] [id number] [facility]/14 Inpatient- Still a Patient [facility](Occ Therapy NMCP) [facility](Occ Therapy NMCP) [facility] [id number] [facility]- Still a Patient [facility](Occ Therapy NMCP) [facility](Nutriti on NMCP) INPATIENT [id number] YOLANDA CEDEÑO 02/15 Inpatient- Still a Patient [facility](Nut rition NMCP) [facility](Occ Therapy NM[facility]) INPATIENT [id number] in JAZZ Moe. 02/16 Inpatient- Still a Patient [facility](Occ Therapy [facility]) [facility](Speech Pathology NM[facility]) INPATIENT [id number] Re assess Swallow functio n ODALIS RODRIGUEZ 02/16 Inpatient- Still a Patient [facility] [place](Spe ech Patholo gy [facility]) [facility](Occ Therapy NMCP) INPATIENT [id number] in JAZZ Moe. 02/16 Inpatient- Still a Patient [facility] [place](Occ Therapy [facility]) [facility](Speech Pathology NMCP) INPATIENT [id number] ODALIS RODRIGUEZ 02/16 Inpatient- Still a Patient [facility](Spe ech Patholo gy [facility]CP) [facility](Speech Pathology NM[facility]) INPATIENT [id number] Dysphag ia ODALIS Mejia 02/17 [facility]patient- [facility](Spe ech Patholo gy NM[facility]) [facility](Case Managemen t [facility]) OUTPATIENT [id number] CASE MANAGEM ENT IVANNA CORTÉS S 03/08 Released w/o Limitations [facility] [place]([place]ajuan e Managem ent [facility] [place]) [facility] Managemen [facility] [place]) OUTPATIENT [id number] CASE MANAGEM ENT IVANNA CORTÉS S 03/09 Released w/o Limitations [facility] [place]([place]ajuan e Managem ent [facility] [place]) [facility](Case Mgmt Active Duty (AD)) OUTPATIENT [id number] CASE MANAGEM ENT IVANNA CORTÉS S 03/10 Released w/o Limitations [facility] [place] [facility](Dajuan e Mgmt Active Duty (AD)) [facility](Case Mgmt Active Duty (AD)) OUTPATIENT [id number] IVANNA CORTÉS S 03/14 Released w/o Limitations [facility] [place](Dajuan e Mgmt Active Duty (AD)) [facility] [place](Case Mgmt Active Duty (AD)) OUTPATIENT [id number] CASE MANAGEM ENT IVANNA CORTÉS S 03/15 Released w/o Limitations [facility] [place](Dajuan e Mgmt Active Duty (AD)) [facility] [place] [facility] Managemen [facility] [place] [facility]) OUTPATIENT [id number] CASE MANAGEM ENT IVANNA CORTÉS S 03/17 [place]ased w/o Limitations [place]ajuan e Managem ent [facility] [place] [facility](Case Mgmt Active Duty (AD)) OUTPATIENT [id number] CASE MANAGEM ENT IVANNA CORTÉS S 03/18 Released w/o Limitations [facility] [place](Dajuan e Mgmt Active Duty (AD)) [facility] [place] [facility](Neurosu rgery NMCP) OUTPATIENT [id number] preangi o for 04/11/ from [facility]/mt n leave ANA HANLEY 03/25 Released w/o Limitations [facility] [place] [facility]William rosurge ry NMCP) [facility] [place] [facility]) OUTPATIENT [id number] bump under R armpit x 3 days HODGESMARYLU LOPEZ F 04/05 Released w/o Limitations [facility] [place] DIRECT TO MTF FROM OTHER THAN ER OR [facility] [id number] MELISSAEDUIN AMADOR RACHEL 04/11 [employer] [facility] [place] [facility](Neurosu rgery NMCP) OUTPATIENT [id number] f/u after angiogr am 04/11 ANA HANLEY 04/14 Released w/o Limitations [facility] [place] [facility]William rosurge ry NMCP) [facility] [place] [facility] ADMISSION RESULTING FROM [facility], DIRECT TO MTF [id number] ANA HANLEY 04/19 RETURNED TO DUTY [facility] [place] [facility]urosu [facility]gery [facility]) TELE CONSULT [id number] please call pt post surgery . Dr.Cobe brown, perform ed surgery 2 weeks ago. CHELSEA NEAL 05/06 [facility](William rosurge ry NMCP) [facility] [place](Case Managemen t [facility] [place]) OUTPATIENT [id number] Case Managem ent IVANNA CORTÉS S 05/06 Released w/o Limitations [facility](Dajuan e Managem ent [facility]) [facility] [place](Neurosu rgery NMCP) TELE CONSULT [id number] pt would like for you to call him back, did not give details as to why. CHELSEA NEAL Mahin 05/23 [facility](William rosurge ry NMCP) [facility] [place] [facility](Neurosu rgery NMCP) OUTPATIENT [id number] 1st post op f/u; no xrays ANA HANLEY 05/31 Released w/o Limitations [facility](William rosurge ry NMCP) [facility] [place] [facility]Neurosu [facility]gery [facility]) TELE CONSULT [phone] [place] N FOR YOU CHELSEA NEAL Mahin 06/22 [facility]) [facility] [place]) OUTPATIENT [id number] c/o hang nail ingrown on lt foot 3 wks HIGHANUJEL 06/28 Released w/o Limitations [facility] [facility] [place] [facility] [place] [facility](Neurosu rgery NMCP) TELE CONSULT [id number] Med board CHELSEA NEAL Mahin 07/22 [facility](William rosurge ry NMCP) [facility]gery NMCP) TELE CONSULT [id number] [facility] CHELSEA NEAL 08/03 [facility](William rosurge ry NMCP) [facility] [place] [facility](Case Mgmt Active Duty (AD)) OUTPATIENT [id number] Case Managem ent IVANNA CORTÉS S 08/16 Released w/o Limitations [facility](Dajuan e Mgmt Active Duty (AD)) [facility] h(Case Mgmt Active Duty (AD)) OUTPATIENT [id number] Case Managem ent IVANNA CORTÉS S 08/17 [facility]ased w/o Limitations [facility] [place] [facility](Dajuan e Mgmt Active Duty (AD)) [facility] [place] [facility](Case Mgmt Active Duty (AD)) OUTPATIENT [id number] Case Managem ent LYDIA CORTÉSA S 08/18 Released w/o Limitations [facility] [place] [facility](Dajuan e Mgmt Active Duty (AD)) [facility] [place] [facility](Case Mgmt Active Duty (AD)) OUTPATIENT [id number] Case Managem ent MOO, IVANNA S 08/19 Released w/o Limitations [facility] [place] [facility](Dajuan e Mgmt Active Duty (AD)) [facility] [place] [facility](Mil AC [facility] [place]) OUTPATIENT [id number] poss strep throat 2 days. TAMIA BALTAZAR 08/26 Released w/o Limitations [facility] [place] [facility] [place] ) [facility] [place] [facility] [place]) OUTPATIENT [id number] sore throat, weaknes s x 8 days; already seen but not better DAKOTA MCCORMICK 09/01 Released w/o Limitations [facility] [place] [facility] [place] ) [facility] [place] [facility](Hearing Cons [place]) OUTPATIENT [id number] PAL MCLEOD 09/05 Released w/o Limitations [facility] [place] [facility](Hea ring Cons [facility]) [facility] [place] [facility](Immuniz ations [facility] [place]) OUTPATIENT [id number] ppd/flu mist KAREEN ARMENDARIZ 09/05 Released w/o Limitations [facility] [place] [facility](Imm unizati ons [facility] [place] ) [facility] [place] [facility](Case Mgmt Active Duty (AD)) OUTPATIENT [id number] Case Managem ent IVANNA CORTÉS S 09/05 Released w/o Limitations [facility] [place] [facility](Dajuan e Mgmt Active Duty (AD)) [facility] [place] [facility](Immuniz ations [facility] [place]) OUTPATIENT [id number] ppd check JESSICA SOSA 09/07 Released w/o Limitations [facility] [place] [facility](Imm unizati ons [facility] ) [facility] [place] [facility](Neurosu rgery NMCP) OUTPATIENT [id number] f/u EDUIN TORRES RACHEL 10/04 Released with Work/Duty Limitations [facility] [place](William rosurge ry NMCP) [facility] [place] [facility] [place] OUTPATIENT [id number] part 2 [facility] 10/06 [facility]ased w/o Limitations [facility] [place] [place] [place] [facility](Neurosu rgery NMCP) TELE CONSULT [id number] DR. HANLEY PATIENT CHELSEA NEAL 10/20 [facility] [place]William rosurge ry NMCP) [facility] [place] [facility](Case Mgmt Active Duty (AD)) OUTPATIENT [id number] Case Managem ent IVANNA CORTÉS 10/26 Released w/o Limitations [facility] [place](Dajuan e Mgmt Active Duty (AD)) [facility] [place] [facility](Occ Therapy NMCP) OUTPATIENT [id number] [facility] DELETE_TA _MEREDITH BUCKNER 10/26 Released w/o Limitations [facility] [place] [facility](Occ Therapy NMCP) [facility] [place] [facility](Occ Therapy [place]) OUTPATIENT [id number] LILI MONTES 10/31 Released w/o Limitations [facility] [place] [facility](Occ Therapy [place]) [facility] [place] [facility](Occ Therapy [place]) OUTPATIENT [id number] PAULO CORTÉS 11/02 Released w/o Limitations [facility] [place] [facility](Occ Therapy [place]) [facility] [place] [facility](Neurosu rgery NMCP) TELE CONSULT [id number] Letter CHELSEA NEAL 11/04 [facility] [place] [facility](William rosurge ry NMCP) [facility] [place] [facility](Occ Therapy NMCP) OUTPATIENT [id number] PAULO CORTÉS 11/07 Released w/o Limitations [facility] [place] [facility](Occ Therapy [place]) [facility] [place] [facility](Occ Therapy [place]) OUTPATIENT [id number] LILI MONTES 11/09 Released w/o Limitations [facility] [place] [facility](Occ Therapy NMCP) [facility] [place] [facility](Neurosu rgery NMCP) OUTPATIENT [id number] EDUIN TORRES 11/10 Released with Work/Duty Limitations [facility] rosurge ry NMCP) [facility] [place] [facility] [place]) OUTPATIENT [id number] Headach es since Sep 2008 DENISE BUSH 11/16 Released w/o Limitations [facility] [place] ) [facility] [place] [facility](Neurosu rgery NMCP) TELE CONSULT [id number] dr torres patient . HAN SHAH 11/16 [facility]William rosurge ry NMCP) [facility] [place] [facility](Occ Therapy NMCP) OUTPATIENT [id number] LILI MONTES 11/17 Released w/o Limitations [facility] NM[facility]) [facility] [place] [facility](Neurosu rgery NMCP) TELE CONSULT [id number] pt status post brain hemmora ge now having difficu lt painful swallow ing. HAN SHAH Radha 11/21 [facility](William rosurge ry NMCP) [facility] [place] [facility](Occ Therapy NMCP) OUTPATIENT [id number] LILI MONTES 11/21 Released w/o Limitations [facility]Occ Therapy NMCP) [facility] [place] (Case Mgmt Active Duty (AD)) OUTPATIENT [id number] Case Managem ent IVANNA CORTÉS 11/23 Released w/o Limitations [facility](Dajuan e Mgmt Active Duty (AD)) [facility] [place] [facility](Occ Therapy NMCP) OUTPATIENT [id number] PAULO CORTÉS 11/23 Released w/o Limitations [facility]Occ Therapy NMCP[facility] [place] [facility]) OUTPATIENT [id number] H/A since Sep ZAINAB SHETH 11/24 Released w/o Limitations [facility] ) [facility] [place] [facility](Occ Therapy NMCP) OUTPATIENT [id number] JOHN_MEREDITH SEN 11/25 Released w/o Limitations [facility] [place] [facility](Occ Therapy NMCP) [facility] h(Case Mgmt Active Duty (AD)) OUTPATIENT [id number] Case Managem IVANNA Slade S 12/26 Released w/o Limitations [facility](Dajuan e Mgmt Active Duty (AD)) [facility](Neurosu rgery NMCP) TELE CONSULT [id number] [facility] patient CHELSEA NEAL 01/19 [facility]William rosurge ry NMCP) [facility](Case Mgmt Active Duty (AD)) OUTPATIENT [id number] Case Managem ent IVANNA CORTÉS S 01/23 Released w/o Limitations [facility](Dajuan e Mgmt Active Duty (AD)) [facility]([employer]) OUTPATIENT [id number] 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 LATONYA MARADIAGA 02/02 Released w/o Limitations [facility] [employer] ) [facility]([employer] NMCP[facility] OUTPATIENT [id number] RENEE GREENWOOD 02/16 Released w/o Limitations [facility]Phy s Ther [employer] NMCP) [facility]([employer]) OUTPATIENT [id number] HARVEY KONG 02/24 Released w/o Limitations [facility] [place] [employer] ) [facility](Case Mgmt Active Duty (AD)) OUTPATIENT [id number] Case Managem ent IVANNA CORTÉS S 02/24 Released w/o Limitations [facility] [place](Dajuan e Mgmt Active Duty (AD)) [facility] OUTPATIENT [id number] NORAH JIMENEZ V 02/28 Released w/o Limitations [facility] [place] ) [facility] [place] [facility]([employer]) OUTPATIENT [id number] HARVEY KONG 03/01 Released w/o Limitations [facility] [place] [facility] ) [facility] [place] [facility](Case Mgmt Active Duty (AD)) OUTPATIENT [id number] Case Managem IVANNA Slade 03/03 Released w/o Limitations [facility] [place] [facility](Dajuan e Mgmt Active Duty (AD)) [facility] [place] [facility]([employer]) OUTPATIENT [id number] HARVEY KONG 03/06 Released w/o Limitations [facility] [place]([employer] ) [facility] [place] [facility]([employer]) OUTPATIENT [id number] HARVEY KONG 03/13 Released w/o Limitations [facility] [place] ) [facility] [place] [facility]([employer]) OUTPATIENT [id number] NORAH JIMENEZ V 03/14 Released w/o Limitations [facility] [place] [employer] ) [facility] [place] [facility]([employer]) OUTPATIENT [id number] HARVEY KONG 03/15 Released w/o Limitations [facility] [place] [employer] ) [facility] [place] [facility]([employer]) OUTPATIENT [id number] NORAH JIMENEZ V 03/21 Released w/o Limitations [facility] [place] [facility] ) [facility] [place] [facility]([employer]) OUTPATIENT [id number] HARVEY KONG 03/27 Released w/o Limitations [facility] [place] ) [facility] [place] [facility]([employer]) OUTPATIENT [id number] ELVIA JEFFERS 04/12 Released w/o Limitations [facility] [place] [facility] ) [facility] [place] [facility]([employer]) OUTPATIENT [id number] ELVIA JEFFERS 04/14 Released w/o Limitations [facility] [place]([employer] ) [facility] [place] [facility](Case Mgmt Active Duty (AD)) OUTPATIENT [id number] Case Managem ent IVANNA CORTÉS S 04/17 Released w/o Limitations [facility] [place] [facility](Dajuan e Mgmt Active Duty (AD)) [facility] [place] [facility](Neurosu rgery NMCP) TELE CONSULT [id number] pt has shashank boucher medical board HAN SHAH 05/22 [facility] [place] [facility](William rosurge ry NMCP) [facility] [place] [facility](Neurosu rgery [place]CP) OUTPATIENT [id number] f/u for med boards ANA HANLEY 05/24 Released w/o Limitations [facility] [place] [facility](William rosurge ry NMCP) [facility] [place] [facility](Case Mgmt Active Duty (AD)) OUTPATIENT [id number] Case Managem ent IVANNA CORTÉS S 05/29 Released w/o Limitations [facility] [place] [facility](Dajuan e Mgmt Active Duty (AD)) [facility] [place] [facility] [place] [facility]) OUTPATIENT [id number] CHRIS Bartholomew 06/01 Released w/o Limitations [facility] [place] [facility](Phy [facility] [place]) [facility] [place] [facility](Hearing [facility] [place] [employer]) OUTPATIENT [id number] SIDNEY DICKERSON 06/01 Released w/o Limitations [facility] [place] [facility](Hea ring Cons [place] [employer]) [facility] [place] [facility](Mil [facility] [place]) OUTPATIENT [id number] sore throat x 4 days MEREDITH PAGE 06/16 Sick at Home/Quarter s [facility] [place] [facility] [place] ) [facility] [place] [facility](Neurosu rgery NMCP) TELE CONSULT [id number] prabhakar fontenot. would like to discuss med board. info [id number] [phone] CHELSEA NEAL 06/23 [facility] [place] [facility](William rosurge ry NMCP) [facility] [place] [facility](Case Mgmt Active Duty (AD)) OUTPATIENT [id number] Case Managem ent IVANNA CORTÉS S 08/01 Released w/o Limitations [facility] [place] [facility](Dajuan e Mgmt Active Duty (AD)) [facility] [place] [facility]) OUTPATIENT [id number] RIGHT WRIST PAIN ZAINAB SHETH 08/02 Released w/o Limitations [facility](Optomet ry [place]) OUTPATIENT [id number] eye exam DOROTHY SUH NMN 08/04 Released w/o Limitations [facility](Opt ometry [place]) [facility](Immuniz ation NMCP) OUTPATIENT [id number] Adult Imms - Flumist LISA PRASAD N P 08/17 Released w/o Limitations [facility](Imm unizati on NMCP) [facility](Neurosu rgery NMCP) TELE CONSULT [id number] Dr.Cobe brown pt. Mrs. Harvey rubio of Med Boards request ing consult for pt. CHELSEA NEAL 08/28 [facility](William rosurge ry NMCP) [facility](Neurosu rgery NMCP) TELE CONSULT [id number] PEB request PT HAN SHAH Radha 09/04 [facility](William rosurge ry NMCP) [facility]([place]) OUTPATIENT [id number] TAMIA CARMONA 09/05 Released w/o Limitations [facility](Phy s Ther [place]PS) [facility](Occ Therapy NMCP) OUTPATIENT [id number] AVM bleed PAL NIEVES 09/12 Released w/o Limitations [facility](Occ Therapy NMCP) [facility](Case Mgmt Active Duty (AD)) OUTPATIENT [id number] Case Managem ent IVANNA CORTÉS 09/21 Released w/o Limitations [facility](Dajuan e Mgmt Active Duty (AD)) [facility]) OUTPATIENT [id number] UPDATE LIMITED PROFILE FOR ZAINAB JACOME 11/01 Released w/o Limitations [facility](Immuniz ations [facility]) OUTPATIENT [id number] VACCINE S WILTON SILVA 11/15 Released w/o Limitations [facility](Imm unizati ons [facility] ) [facility](Immuniz ations [facility]) OUTPATIENT [id number] vaccine JESSICA SOSA 11/21 Released w/o Limitations [facility](Imm unizati ons [facility] ) [facility]([place] [employer]) OUTPATIENT [id number] MEDICAL ASSIGNM ENT SCREEN (STANDB Y) KERRI TREJO 11/24 Released w/o Limitations [facility](Ove rseas Screeni [place] ) [facility]) OUTPATIENT [id number] Pain in tonsils /throat , hot flashes IRENE FERGUSON 11/28 Released w/o Limitations [facility] ) [facility](Neurosu rgery NMCP) TELE CONSULT [id number] pt's CO would like to speak with Dr Hanley [phone] CHELSEA NEAL 11/30 [facility](William rosurge ry NMCP) [facility](Neurosu rgery NMCP) OUTPATIENT [id number] f/u ANA HANLEY 12/01 Released w/o Limitations [facility](William rosurge ry NMCP) [facility] [place]) OUTPATIENT [id number] R MAGAÑA PAIN ZAINAB SHETH 12/05 Released w/o Limitations [facility] ) [facility](Case Mgmt Active Duty (AD)) OUTPATIENT [id number] Case Managem ent IVANNA CORTÉS S 12/15 Released w/o Limitations [facility](Dajuan e Mgmt Active Duty (AD)) [facility](Immuniz ations [facility]) OUTPATIENT [id number] vaccine CIERA FOREMAN Alessandro 01/09 Released w/o Limitations [facility](Imm unizati ons [facility] ) [facility]) OUTPATIENT [id number] Chest Pain EMMA WHALEY EDWARD 01/17 Released w/o Limitations [facility] ) [facility]) OUTPATIENT [id number] Injured right foot during PT x 5 days AYAD JEAN 02/21 Released w/o Limitations [facility] ) [facility]) OUTPATIENT [id number] f/u xray results ZAINAB SHETH 03/06 Released w/o Limitations [facility] ) [facility](Neurosu afshin [employer]) TELE CONSULT [id number] Dr Hanley Pt . needs form stating he can fly. Pt leaving for [place] on 7-6 ÁNGEL, CHELSEA L 03/26 [facility](William aniceto brown NMCP) [facility]) OUTPATIENT [id number] sore throat EMMA WHALEY EDWARD 03/28 Released w/o Limitations [facility] ) [facility]) OUTPATIENT [id number] seen yesterd ay for sorethr oat today throat is worse BRENT HARRISON 03/29 Released w/o Limitations [facility] ) [facility](Immuniz ations [facility]) OUTPATIENT [id number] vaccine JAZZ DAVIS 05/09 Released w/o Limitations [facility](Imm unizati ons [facility] ) [facility]) OUTPATIENT [id number] R FOOT EVALUAT ION ZAINAB SHETH 05/15 Released w/o Limitations [facility] [place] ) [facility](Immuniz ations [facility]) OUTPATIENT [id number] vaccine KAREEN ARMENDARIZ 05/21 Released w/o Limitations [facility](Imm unizati ons [facility] ) [facility](Phys Exam [place]) OUTPATIENT [id number] SEPARAT ION PHYSICA L 010201 CHRIS CHONG S 05/22 Released w/o Limitations [facility](Phy s Exam [place]) [facility](Neurosu rgery [place]CP) TELE CONSULT [id number] Pt c/o of more frequen t paralys is, since surgery . 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 CASEHAN Radha 08/01 [facility](William rosurge ry NMCP) 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 Encounter [id number] 03/16 [facility] Encounter [id number] CHRISTINE SALDIVAR 03/18 [facility] OFFICE O/P EST LOW 20 MIN [id number] Diagnos is: ICD-10- CM Z00.00 Encntr for general adult medical exam w/o abnorma l finding s Nicanor KENNEDY L 03/18 [facility] Outpatient Encounter [id number] 04/07 [facility] Outpatient Encounter [id number] 07/13 [facility] Outpatient Encounter [id number] 09/09 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 Outpatient Encounter [id number] 05/11 [facility] Procedures Combined list of: 1) Procedures from Department of [facility] facilities going back up to thelast 18 months, not all VA non-surgical procedures are included; 2) All procedures from the Department of Defense facilities. Procedure Procedure Type Code Date Perfomer Comments Sourc e INDIVIDUAL PSYCHOTHERAPY, INSIGHT ORIENTED, BEHAVIOR MODIFYING AND/OR SUPPORTIVE, IN AN OFFICE OR OUTPATIENT FACILITY, APPROXIMATELY 20 TO 30 MINUTES [id number] WITH THE PATIENT 2006 [facility] PSYCHIATRIC DIAGNOSTIC INTERVIEW EXAMINATION 2006 [facility] IMMUNIZATION ADMINISTRATION (INCLUDES PERCUTANEOUS, INTRADERMAL, SUBCUTANEOUS, OR INTRAMUSCULAR INJECTIONS); 1 VACCINE (SINGLE OR COMBINATION VACCINE/TOXOID) 2006 [facility] PURE TONE AUDIOMETRY (THRESHOLD); AIR ONLY 2006 [facility] DETERMINATION OF REFRACTIVE STATE 2006 [facility] THERAPEUTIC PROCEDURE, 1 OR MORE AREAS, EACH 15 MINUTES; THERAPEUTIC EXERCISES TO DEVELOP STRENGTH AND ENDURANCE, RANGE OF MOTION AND FLEXIBILITY 2006 [facility]D BUPRENORPHINE IMPLANT, 74.[address] [facility] INDIVIDUAL PSYCHOTHERAPY, INSIGHT ORIENTED, BEHAVIOR MODIFYING AND/OR SUPPORTIVE, IN AN OFFICE OR OUTPATIENT FACILITY, APPROXIMATELY 20 TO 30 MINUTES [id number] WITH THE PATIENT 2006 [facility] PSYCHOLOGICAL TSTING (INCL PSYCHODIAG ASSESSMNT, EMOTITY, INTELLECTUAL ABILITIES, PERSONALITY &PSYCHOPATHOLOGY, EG, MMPI), ADMINISTERED COMPUTER, W QUALIFIED HEALTH FINISH OPENER INTERPRET &RPT 2006 [facility] PSYCHIATRIC DIAGNOSTIC INTERVIEW EXAMINATION 2006 [facility] THERAPEUTIC PROCEDURE, 1 OR MORE AREAS, EACH 15 MINUTES; THERAPEUTIC EXERCISES TO DEVELOP STRENGTH AND ENDURANCE, RANGE OF MOTION AND FLEXIBILITY 2005 [facility] ORAL THERMOMETER, REUSABLE, ANY TYPE, EACH 2005 [facility] TYPHOID VACCINE, CAPSULAR POLYSACCHARIDE (VICPS), FOR INTRAMUSCULAR USE 2005 DoD BUPRENORPHINE IMPLANT, 74.[address] [facility] SCREENING TEST OF VISUAL ACUITY, QUANTITATIVE, BILATERAL 2005 [facility] AUDIOMETRIC TESTING OF GROUPS 2005 DoD SKIN TEST; TUBERCULOSIS, INTRADERMAL 2005 [facility] SKIN TEST; TUBERCULOSIS, INTRADERMAL 2009 [facility] SKIN TEST; TUBERCULOSIS, INTRADERMAL 2009 [facility] ELECTROCARDIOGRAM, ROUTINE ECG WITH AT LEAST 12 LEADS; WITH INTERPRETATION AND REPORT 2009 [facility] SKIN TEST; TUBERCULOSIS, INTRADERMAL 2009 [facility] CASE MANAGEMENT, EACH 15 MINUTES 2009 [facility] IMMUNIZATION ADMINISTRATION (INCLUDES PERCUTANEOUS, INTRADERMAL, SUBCUTANEOUS, OR INTRAMUSCULAR INJECTIONS); EACH ADDITIONAL VACCINE (SINGLE OR COMBINATION VACCINE/TOXOID) 2009 [facility] CASE MANAGEMENT, EACH [address] [facility] OCCUPATIONAL THERAPY EVALUATION 2008 [facility] PHYSICAL THERAPY RE-EVALUATION 2008 [facility] INFLUENZA VIRUS VACCINE, TRIVALENT, LIVE (LAIV3), FOR INTRANASAL USE 2008 [facility] FITTING OF SPECTACLES, EXCEPT FOR APHAKIA; MONOFOCAL 2008 [facility] COORDINATED CARE FEE, RISK ADJUSTED MAINTENANCE, LEVEL [address] [facility] HANDLING AND/OR CONVEYANCE OF SPECIMEN FOR TRANSFER FROM THE OFFICE TO A LABORATORY 2008 [facility] SCREENING TEST, PURE TONE, AIR ONLY 2008 [facility]D COORDINATED CARE FEE, RISK ADJUSTED MAINTENANCE, LEVEL [address] [facility] COORDINATED CARE FEE, RISK ADJUSTED MAINTENANCE, LEVEL [address] [facility] THERAPEUTIC PROCEDURE, 1 OR MORE AREAS, EACH 15 MINUTES; THERAPEUTIC EXERCISES TO DEVELOP STRENGTH AND ENDURANCE, RANGE OF MOTION AND FLEXIBILITY 2008 [facility] THERAPEUTIC PROCEDURE, 1 OR MORE AREAS, EACH 15 MINUTES; THERAPEUTIC EXERCISES TO DEVELOP STRENGTH AND ENDURANCE, RANGE OF MOTION AND FLEXIBILITY 2008 [facility] SELF-CARE/HOME MANAGMENT TRAIN (EG,ACT OF DAILY LIVING (ADL) &COMPENSAT TRAIN,MEAL PREPARATION,SAFETY PROCS,AND INSTRUCT IN USE OF ASST TECHNOLOGY DEV/ADPT EQUIP) DIR ONE-ON-ONE CONT,EA [address] [facility] THERAPEUTIC PROCEDURE, 1 OR MORE AREAS, EACH 15 MINUTES; THERAPEUTIC EXERCISES TO DEVELOP STRENGTH AND ENDURANCE, RANGE OF MOTION AND FLEXIBILITY 2008 [facility] SELF-CARE/HOME MANAGMENT TRAIN (EG,ACT OF DAILY LIVING (ADL) &COMPENSAT TRAIN,MEAL PREPARATION,SAFETY PROCS,AND INSTRUCT IN USE OF ASST TECHNOLOGY DEV/ADPT EQUIP) DIR ONE-ON-ONE CONT,EA [address] [facility] THERAPEUTIC PROCEDURE, 1 OR MORE AREAS, EACH 15 MINUTES; AQUATIC THERAPY WITH THERAPEUTIC EXERCISES 2008 [facility] SELF-CARE/HOME MANAGMENT TRAIN (EG,ACT OF DAILY LIVING (ADL) &COMPENSAT TRAIN,MEAL PREPARATION,SAFETY PROCS,AND INSTRUCT IN USE OF ASST TECHNOLOGY DEV/ADPT EQUIP) DIR ONE-ON-ONE CONT,EA [address] [facility] SELF-CARE/HOME MANAGMENT TRAIN (EG,ACT OF DAILY [...] CASE MANAGEMENT, EACH [address] [facility] OCCUPATIONAL THERAPY RE-EVALUATION 2008 DoD THERAPEUTIC [...] IMPROVE FUNCTIONAL PERFORMANCE), EACH [address] [facility] NEUROPSYCHOLOG TST (EG,VAL-REITAN NEUROPSYCHOLOG JEREMIAS,ANASTASIIA MEM SCALES & WISC CARD SORT TST),/HR OF PSYCHOLOGIST/PHYS TIME,BOTH [id number] ADMIN TST TO PAT & TIME INTERP [...] WISC CARD SORT TST),/HR OF PSYCHOLOGIST/PHYS TIME,BOTH [id number] ADMIN TST TO PAT & TIME INTERP TEST RES & PREP RPT 2008 DoD THERAPEUTIC PROCEDURE, 1 OR MORE AREAS, EACH 15 MINUTES; THERAPEUTIC EXERCISES TO DEVELOP STRENGTH AND ENDURANCE, RANGE OF MOTION AND FLEXIBILITY 2008 Do[facility] COORDINATED CARE FEE, RISK ADJUSTED MAINTENANCE, LEVEL [address] [facility] UNLISTED SPECIAL SERVICE, PROCEDURE OR REPORT 2008 [facility] PSYCHOLOGICAL TSTING (INCL PSYCHODIAG ASSESSMNT, EMOTITY, INTELLECTUAL ABILITIES, PERSONALITY &PSYCHOPATHOLOGY, EG, MMPI), ADMINISTERED COMPUTER, W QUALIFIED HEALTH FINISH OPENER INTERPRET &RPT 2008 [facility] PSYCHIATRIC DIAGNOSTIC INTERVIEW EXAMINATION 2008 [facility] SCREENING TEST OF VISUAL ACUITY, QUANTITATIVE, BILATERAL 2008 Do[facility] COORDINATED CARE FEE, RISK ADJUSTED MAINTENANCE, LEVEL [address] [facility] IMMUNIZATION ADMINISTRATION BY INTRANASAL OR ORAL ROUTE; 1 VACCINE (SINGLE OR COMBINATION VACCINE/TOXOID) 2007 [facility] AUDIOMETRIC TESTING OF GROUPS 2007 [facility] COLLECTION OF VENOUS BLOOD BY VENIPUNCTURE 2007 [facility] HANDLING AND/OR CONVEYANCE OF SPECIMEN FOR TRANSFER FROM THE OFFICE TO A LABORATORY 2007 DoD CASE MANAGEMENT, EACH 15 MINUTES 2007 DoD CASE MANAGEMENT, EACH 15 MINUTES 2007 Do[facility] CASE MANAGEMENT, EACH 15 MINUTES 2007 Do[facility] COORDINATED CARE FEE, RISK ADJUSTED MAINTENANCE 2007 DoD CASE MANAGEMENT, EACH 15 MINUTES 2007 DoD OTHER EXCISION OR DESTRUCTION OF LESION OR TISSUE OF BRAIN 2007 [facility] COMPUTERIZED AXIAL TOMOGRAPHY OF HEAD 2007 [facility] ARTERIOGRAPHY OF CEREBRAL ARTERIES 2007 [facility] OTHER CRANIECTOMY 2007 DoD POSTOPERATIVE FOLLOW-UP [...] PERIOD REASON RELATED ORIGINAL PROCEDURE 2007 [facility] SURGERY OF INTRACRANIAL ARTERIOVENOUS MALFORMATION; SUPRATENTORIAL, SIMPLE 2007 [facility] UNLISTED SPECIAL SERVICE, PROCEDURE OR REPORT 2007 DoD CASE MANAGEMENT, EACH 15 MINUTES 2007 DoD CASE MANAGEMENT, EACH 15 MINUTES 2007 DoD CASE MANAGEMENT, EACH 15 MINUTES 2007 DoD CASE MANAGEMENT, EACH 15 MINUTES 2007 DoD CASE MANAGEMENT, EACH 15 MINUTES 2007 DoD CASE MANAGEMENT, EACH 15 MINUTES 2007 DoD OTHER INCISION OF BRAIN 01/28 [facility] VENTRICULOSTOMY 2007 [facility] TEMPORARY TRACHEOSTOMY 02/17 [facility] CLOSED [ENDOSCOPIC] BIOPSY OF BRONCHUS 2007 [facility] VENOUS CATHETERIZATION, NOT ELSEWHERE CLASSIFIED 2007 [facility] PERCUTANEOUS [ENDOSCOPIC] GASTROSTOMY [PEG] 2007 [facility] COMPUTERIZED AXIAL TOMOGRAPHY OF HEAD 2007 [facility] COMPUTERIZED AXIAL TOMOGRAPHY OF THORAX 2007 [facility] COMPUTERIZED AXIAL TOMOGRAPHY OF ABDOMEN 2007 [facility] ARTERIOGRAPHY OF CEREBRAL ARTERIES 2007 [facility] DIAGNOSTIC ULTRASOUND OF HEART 2007 [facility] OTHER DIAGNOSTIC ULTRASOUND 2007 [facility] RESPIRATORY MEDICATION ADMINISTERED BY NEBULIZER 2007 [facility] OTHER OXYGEN ENRICHMENT 01/28 [facility] INSERTION OF ENDOTRACHEAL TUBE 2007 [facility] OTHER LAVAGE OF BRONCHUS AND TRACHEA 2007 [facility] ENTERAL INFUSION OF CONCENTRATED NUTRITIONAL SUBSTANCES 2007 [facility] CONTINUOUS MECHANICAL VENTILATION FOR 96 CONSECUTIVE HOURS OR MORE 2007 [facility] INJECTION OF ANTICOAGULANT 2007 [facility] INJECTION OF ANTIBIOTIC 01/28 [facility] TREATMENT OF SWALLOWING DYSFUNCTION AND/OR ORAL FUNCTION FOR FEEDING 2007 DoD POSTOPERATIVE FOLLOW-UP VISIT, NORMALLY INCLUDED IN THE SURGICAL PACKAGE, INDICATE THAT EVALUATION & MANAGEMENT SERVICE WAS PERFORMED DURING A POSTOPERATIVE PERIOD REASON RELATED ORIGINAL PROCEDURE 2007 [facility] THERAPEUTIC PROCEDURE,1 OR MORE AREAS,EACH 15 MINUTES;NEUROMUSCULAR REEDUCATION OF MOVEMENT,BALANCE,COORDI NATION,KINESTHETIC SENSE,POSTURE,AND/OR PROPRIOCEPTION FOR SITTING AND/OR STANDING ACTIVITIES 2007 [facility] TREATMENT OF SWALLOWING DYSFUNCTION AND/OR ORAL FUNCTION FOR FEEDING 2007 DoD THERAPEUTIC PROCEDURE, 1 OR MORE AREAS, EACH 15 MINUTES; GAIT TRAINING (INCLUDES STAIR CLIMBING) 2007 DoD POSTOPERATIVE FOLLOW-UP VISIT, NORMALLY INCLUDED IN THE SURGICAL PACKAGE, INDICATE THAT EVALUATION & MANAGEMENT SERVICE WAS PERFORMED DURING A POSTOPERATIVE PERIOD REASON RELATED ORIGINAL PROCEDURE 2007 [facility] SELF-CARE/HOME MANAGMENT TRAIN (EG,ACT OF DAILY LIVING (ADL) &COMPENSAT TRAIN,MEAL PREPARATION,SAFETY PROCS,AND INSTRUCT IN USE OF ASST TECHNOLOGY DEV/ADPT EQUIP) DIR ONE-ON-ONE CONT,EA 15 MINUTES 2007 [facility] THERAPEUTIC PROCEDURE, 1 OR MORE AREAS, EACH 15 MINUTES; GAIT TRAINING (INCLUDES STAIR CLIMBING) 2007 [facility] MEDICAL NUTRITION THERAPY; RE-ASSESSMENT AND INTERVENTION, INDIVIDUAL, [id number] WITH THE PATIENT, EACH [address] [facility] SELF-CARE/HOME MANAGMENT TRAIN (EG,ACT OF DAILY LIVING (ADL) &COMPENSAT TRAIN,MEAL PREPARATION,SAFETY PROCS,AND INSTRUCT IN USE OF ASST TECHNOLOGY DEV/ADPT EQUIP) DIR ONE-ON-ONE CONT,EA [address] [facility] THERAPEUTIC ACTIVITIES, DIRECT (ONE-ON-ONE) PATIENT CONTACT (USE OF DYNAMIC ACTIVITIES TO IMPROVE FUNCTIONAL PERFORMANCE), EACH 15 MINUTES 2007 [facility] POSTOPERATIVE FOLLOW-UP VISIT, NORMALLY INCLUDED IN THE SURGICAL PACKAGE, INDICATE THAT EVALUATION & MANAGEMENT SERVICE WAS PERFORMED DURING A POSTOPERATIVE PERIOD REASON RELATED ORIGINAL PROCEDURE 2007 DoD POSTOPERATIVE FOLLOW-UP VISIT, NORMALLY INCLUDED IN THE SURGICAL PACKAGE, INDICATE THAT EVALUATION & MANAGEMENT SERVICE WAS PERFORMED DURING A POSTOPERATIVE PERIOD REASON RELATED ORIGINAL PROCEDURE 2007 [facility] PHYSICAL THERAPY RE-EVALUATION 2007 DoD POSTOPERATIVE FOLLOW-UP VISIT, NORMALLY INCLUDED IN THE SURGICAL PACKAGE, INDICATE THAT EVALUATION & MANAGEMENT SERVICE WAS PERFORMED DURING A POSTOPERATIVE PERIOD REASON RELATED ORIGINAL PROCEDURE 2007 [facility] THERAPEUTIC ACTIVITIES, DIRECT (ONE-ON-ONE) PATIENT CONTACT (USE OF DYNAMIC ACTIVITIES TO IMPROVE FUNCTIONAL PERFORMANCE), EACH [address] [facility] TREATMENT OF SWALLOWING DYSFUNCTION AND/OR ORAL FUNCTION FOR FEEDING 2007 DoD POSTOPERATIVE FOLLOW-UP VISIT, NORMALLY INCLUDED IN THE SURGICAL PACKAGE, INDICATE THAT EVALUATION & MANAGEMENT SERVICE WAS PERFORMED DURING A POSTOPERATIVE PERIOD REASON RELATED ORIGINAL PROCEDURE 2007 [facility] THERAPEUTIC ACTIVITIES, DIRECT (ONE-ON-ONE) PATIENT CONTACT (USE OF DYNAMIC ACTIVITIES TO IMPROVE FUNCTIONAL PERFORMANCE), EACH [address] [facility] THERAPEUTIC PROCEDURE, 1 OR MORE AREAS, EACH 15 MINUTES; THERAPEUTIC EXERCISES TO DEVELOP STRENGTH AND ENDURANCE, RANGE OF MOTION AND FLEXIBILITY 2007 [facility] TREATMENT OF SWALLOWING DYSFUNCTION AND/OR ORAL [...] PERIOD REASON RELATED ORIGINAL PROCEDURE 2007 [facility] THERAPEUTIC ACTIVITIES, DIRECT (ONE-ON-ONE) PATIENT CONTACT (USE OF DYNAMIC ACTIVITIES TO IMPROVE FUNCTIONAL PERFORMANCE), EACH [address] [facility] TREATMENT OF SPEECH, LANGUAGE, VOICE, COMMUNICATION, AND/OR AUDITORY PROCESSING DISORDER; INDIVIDUAL 2007 [facility] MEDICAL NUTRITION THERAPY; RE-ASSESSMENT AND INTERVENTION, INDIVIDUAL, [id number] WITH THE PATIENT, EACH [address] [facility] OCCUPATIONAL THERAPY EVALUATION 2007 [facility] THERAPEUTIC ACTIVITIES, DIRECT (ONE-ON-ONE) PATIENT CONTACT (USE OF DYNAMIC ACTIVITIES TO IMPROVE FUNCTIONAL PERFORMANCE), EACH 15 MINUTES 2007 DoD TRACHEOSTOMY SPEAKING VALVE 2007 [facility] POSTOPERATIVE FOLLOW-UP VISIT, NORMALLY INCLUDED IN THE SURGICAL PACKAGE, INDICATE THAT EVALUATION & MANAGEMENT SERVICE WAS PERFORMED DURING A POSTOPERATIVE PERIOD REASON RELATED ORIGINAL PROCEDURE 2007 [facility] PHYSICAL THERAPY EVALUATION 2007 [facility] TRACHEOSTOMY SPEAKING VALVE 2007 DoD POSTOPERATIVE FOLLOW-UP VISIT, NORMALLY INCLUDED IN THE SURGICAL PACKAGE, INDICATE THAT EVALUATION & MANAGEMENT SERVICE WAS PERFORMED DURING A POSTOPERATIVE PERIOD REASON RELATED ORIGINAL PROCEDURE 2007 [facility] PHYSICAL THERAPY EVALUATION 2007 [facility] HEALTH&BEHAV ASSESSMENT (EG, HEALTH-FOC CLINICAL INTERVIEW, BEHAVIORAL OBSERVATIONS, PSYCHOPHYSICOLOGICAL MONITOR, HEALTH-ORIENT QUESTIONNAIRES), EA 15 MIN [id number] W THE PATIENT; INIT ASSESSMENT 2007 [facility] MEDICAL NUTRITION THERAPY; RE-ASSESSMENT AND INTERVENTION, INDIVIDUAL, [id number] WITH THE PATIENT, EACH [address] [facility] INSERTION OF GASTROSTOMY TUBE, PERCUTANEOUS, UNDER FLUOROSCOPIC GUIDANCE INCLUDING CONTRAST INJECTION(S), IMAGE DOCUMENTATION AND REPORT 2007 [facility] MEDICAL NUTRITION THERAPY; RE-ASSESSMENT AND INTERVENTION, INDIVIDUAL, [id number] WITH THE PATIENT, EACH [address] [facility] MEDICAL NUTRITION THERAPY; RE-ASSESSMENT AND INTERVENTION, INDIVIDUAL, [id number] WITH THE PATIENT, EACH [address] [facility] POSTOPERATIVE FOLLOW-UP VISIT, NORMALLY INCLUDED IN THE SURGICAL PACKAGE, INDICATE THAT EVALUATION & MANAGEMENT SERVICE WAS PERFORMED DURING A POSTOPERATIVE PERIOD REASON RELATED ORIGINAL PROCEDURE 2007 [facility] POSTOPERATIVE FOLLOW-UP VISIT, NORMALLY INCLUDED IN THE SURGICAL PACKAGE, INDICATE THAT EVALUATION & MANAGEMENT SERVICE WAS PERFORMED DURING A POSTOPERATIVE PERIOD REASON RELATED ORIGINAL PROCEDURE 2007 [facility] CRANIECTOMY OR CRANIOTOMY FOR EVACUATION OF HEMATOMA, SUPRATENTORIAL; INTRACEREBRAL 2007 [facility] MEDICAL NUTRITION THERAPY; RE-ASSESSMENT AND INTERVENTION, INDIVIDUAL, [id number] WITH THE PATIENT, EACH [address] [facility] SKIN TEST; TUBERCULOSIS, INTRADERMAL 2006 [facility] PT A e ment Kinetic Training PT Assessment Kinetic Training [address] [facility] Training And Self-Care Skills Training And Self-Care Skills [address] [facility] Exercises A isted Exercises For ROM Exercises Assisted Exercises For ROM [address] [facility] Treatment Of Swallowing Dysfunction Treatment Of Swallowing Dysfunction 307[address] [facility] ENT Services Supervised Individual Speech/Hearing Therapy [address] [facility] Treatment Of Swallowing Dysfunction Treatment Of Swallowing Dysfunction 37[address] [facility] Tracheostomy speaking valve [address] [facility] Special ENT Services Evaluation of Speech/Hearing Problem [address] [facility] Evaluation Of Swallowing And Oral Function Evaluation Of Swallowing And Oral Function 169[address] [facility] Tracheostomy speaking valve [address] [facility] Health And Behav A e mt Each 15 Min Initial A e ment Health And Behav Assessmt Each 15 Min Initial Assessment [address] [facility] Medical Nutrition Therapy Re-a e ment, Intervention Medical Nutrition Therapy Re-assessment, Intervention 20[address] [facility] Medical Nutrition Therapy Re-a e ment, Intervention Medical Nutrition Therapy Re-assessment, Intervention [address] [facility] Medical Nutrition Therapy Re-a e ment, Intervention Medical Nutrition Therapy Re-assessment, Intervention 54100 2007 CHIDI ROBERT Immunization Admin By Intranasal / Oral Route One Vaccine Immunization Admin By Intranasal / Oral Route One Vaccine [address] [facility] Influenza Virus Vaccine Live Intranasal [address] [facility] Skin Test Anergy Tuberculin Intradermal Skin Test Anergy Tuberculin Intradermal [address] [facility] Psychiatric Therapy Individual Approximately 20-30 Minutes Psychiatric Therapy Individual Approximately 20-30 Minutes [address] [facility] Psychiatric Evaluation Comprehensive Examination Psychiatric Evaluation Comprehensive Examination 31000 2006 ALESSIA TAN Hepatitis A And Hepatitis B (Intramuscular Use) Adult Dosage Hepatitis A And Hepatitis B (Intramuscular Use) Adult Dosage 31480 2006 ROQUE WHITNEY Immunization Administration One Vaccine Immunization Administration One Vaccine 63399 2006 ROQUE WHITNEY Threshold Audiogram (Pure Tone) Threshold Audiogram (Pure Tone) 10313 2006 KOMAL SYED Audiogram (Screening) Audiogram (Screening) 63453 2006 RITCHIE YOUNG Ophthalmological New Patient Start Comprehensive Care Ophthalmological New Patient Start Comprehensive Care 64524 2006 GUSTAVO VALLE Determination Of Refractive State Determination Of Refractive State 84102 2006 GUSTAVO VALLE Exercises A isted Exercises For ROM Exercises Assisted Exercises For ROM 13416 2006 BRET VILLA PT A e ment Kinetic Training Initial 30 Minutes PT Assessment Kinetic Training Initial 30 Minutes 79736 2006 [place] Physical Medicine - Group Physical Therapy Se ion Physical Medicine - Group Physical Therapy Session 04568 2006 BRET VILLA Psychiatric Therapy Environmental Intervention Psychiatric Therapy Environmental Intervention [address] [facility] Psychiatric Therapy Individual Approximately 20-30 Minutes Psychiatric Therapy Individual Approximately 20-30 Minutes [address] [facility] Psychologic Testing And Report Administered By Computer Psychologic Testing And Report Administered By Computer [address] [facility] Psychiatric Evaluation Comprehensive Examination Psychiatric Evaluation Comprehensive Examination [address] [facility] Skin Test Anergy Tuberculin Intradermal Skin Test Anergy Tuberculin Intradermal [address] [facility] Skin Test Anergy Tuberculin Intradermal Skin Test Anergy Tuberculin Intradermal [address] [facility] Electrocardiogram Electrocardiogram 40066 01/[address] [facility] Skin Test Anergy Tuberculin Intradermal Skin Test Anergy Tuberculin Intradermal [address] [facility] Coordinated care fee, risk adjusted maintenance [address] [facility] Case Management, each 15 minutes [address] [facility] Influenza Virus Vaccine Pandemic Formulation Influenza Virus Vaccine Pandemic Formulation [address] [facility] Immunization Admin By Intranasal / Oral Route One Vaccine Immunization Admin By Intranasal / Oral Route One Vaccine [address] [facility] Immunization Administration Each Additional Vaccine [address] [facility] Typhoid Vaccine Vi Capsular Polysaccharide, For Intramus Use Typhoid Vaccine Vi Capsular Polysaccharide, For Intramus Use [address] [facility] Skin Test Anergy Tuberculin Intradermal Skin Test Anergy Tuberculin Intradermal [address] [facility] Coordinated care fee, risk adjusted maintenance, Level [address] [facility] Case Management, each 15 minutes [address] [facility] Occupational Therapy Evaluation Occupational Therapy Evaluation 78978 2008 [address] [facility] Physical Medicine Physical Therapy Re-Evaluation Physical Medicine Physical Therapy Re-Evaluation [address] [facility] Influenza Virus Vaccine Live Intranasal [address] [facility] Immunization Admin By Intranasal / Oral Route One Vaccine Immunization Admin By Intranasal / Oral Route One Vaccine [address] [facility] Coordinated care fee, risk adjusted maintenance, Level [address] [facility] Spectacles Services Fitting Monofocals (Not For Aphakia) Spectacles Services Fitting Monofocals (Not For Aphakia) 9[address] [facility] Determination Of Refractive State Determination Of Refractive State 31424 2008 DOROTHY SUH VTElin Resendiz Ophthalmological New Patient Start Comprehensive Care Ophthalmological New Patient Start Comprehensive Care 17[address] [facility] -Supervised Specimen Handling / Transfer: Office To Lab -Supervised Specimen Handling / Transfer: Office To Lab [address] [facility] Coordinated care fee, risk adjusted maintenance, Level [address] [facility] Case Management, each 15 minutes [address] [facility] Audiogram (Screening) Audiogram (Screening) [address] [facility] Audiometry Group Testing Audiometry Group Testing [address] [facility] Coordinated care fee, risk adjusted maintenance, Level [address] [facility] Case Management, each 15 minutes [address] [facility] Physical Therapy: ___ Se ion Segments, 15 Minutes Each Physical Therapy: ___ Session Segments, 15 Minutes Each 09340 2008 ELVIA JEFFERS x [address] [facility] Physical Therapy: ___ Se ion Segments, 15 Minutes Each Physical Therapy: ___ Session Segments, 15 Minutes Each 96766 2008 ELVIA JEFFERS x [address] [facility] Phys Therapy Education Self Care Training - Per 15 Minutes Phys Therapy Education Self Care Training - Per 15 Minutes [address] [facility] Physical Therapy: ___ Se ion Segments, 15 Minutes Each Physical Therapy: ___ Session Segments, 15 Minutes Each 37960 2008 NORAH JIMENEZ Aquatic Exercises Aquatic Exercises 94488 03/15 NORAH JIMENEZ Phys Therapy Education Self Care Training - Per 15 Minutes Phys Therapy Education Self Care Training - Per 15 Minutes [address] [facility] Phys Therapy Education Self Care Training - Per 15 Minutes Phys Therapy Education Self Care Training - Per 15 Minutes 33977 2008 HARVEY KONG Phys Therapy Education Self Care Training - Per 15 Minutes Phys Therapy Education Self Care Training - Per 15 Minutes [address] [facility] Coordinated care fee, risk adjusted maintenance, [...] Self Care Training - Per 15 Minutes 26755 2008 HARVEY KONG Aquatic Exercises Aquatic Exercises 83229 02/[address] [facility] Phys Therapy Education Self Care Training - Per 15 Minutes Phys Therapy Education Self Care Training - Per 15 Minutes 03199 2008 HARVEY KONG Aquatic Exercises Aquatic Exercises 30718 02/[address] [facility] Physical Medicine Physical Therapy Evaluation Physical Medicine Physical Therapy Evaluation [address] [facility] Coordinated care fee, risk adjusted maintenance, Level 4 2008 LONG, IVANNA S Do[facility] Case Management, each 15 minutes 2008 LONG, IVANNA S DoD Coordinated care fee, risk adjusted maintenance, Level 4 2008 LONG, IVANNA S Do[facility] Case Management, each 15 minutes 2008 LONG, IVANNA S DoD Occupational Therapy Re-Evaluation Occupational Therapy Re-Evaluation 37914 2008 DELETE_IEN_MEREDITH STAFFORD [facility] PT A e ment Kinetic Training PT Assessment Kinetic Training 12401 2008 PAULO CORTÉS DoD Coordinated care fee, risk adjusted maintenance, Level 3 2008 LONG, IVANNA S Do[facility] Case Management, each 15 minutes 2008 LONG, IVANNA S DoD PT A e ment Kinetic Training PT Assessment Kinetic Training [address] [facility] PT A e ment Kinetic Training PT Assessment Kinetic Training 01915 2008 LILI MONTES PT A e ment Kinetic Training PT Assessment Kinetic Training 03853 2008 LILI MONTES Psychometric Neuropsych Testing Battery Admin By Physician Psychometric Neuropsych Testing Battery Admin By Physician 20936 2008 MONICA WATSON PT A e ment Kinetic Training PT Assessment Kinetic Training 22514 2008 PAULO CORTÉS PT A e ment Kinetic Training PT Assessment Kinetic Training 60594 2008 PAULO CORTÉS PT A e ment Kinetic Training PT Assessment Kinetic Training 49722 2008 PAULO CORTÉS Psychometric Neuropsych Testing Battery Admin By Physician Psychometric Neuropsych Testing Battery Admin By Physician 60905 2008 JATINDER GARCIA Psychometric Neuropsych Testing Battery Admin By Propulsion Generator Repairer Psychometric Neuropsych Testing Battery Admin By Propulsion Generator Repairer 83590 2008 JATINDER GARCIA Exercises A isted Exercises For ROM Exercises Assisted Exercises For ROM 64532 2008 JOHN_MEREDITH MISHRA Training And Self-Care Skills Training And Self-Care Skills 53573 2008 MEREDITH LOMELI Occupational Therapy Evaluation Occupational Therapy Evaluation 03979 2008 MEREDITH LOMELI Coordinated care fee, risk adjusted maintenance, Level 3 [address] [facility] Case Management, each 15 minutes 2008 IVANNA CORTÉS S Martín Psychologic Testing And Report Administered By Computer Psychologic Testing And Report Administered By Computer 43049 2008 JATINDER GARCIA Psychometric Neuropsych Testing Battery Admin By Propulsion Generator Repairer Psychometric Neuropsych Testing Battery Admin By Propulsion Generator Repairer [address] [facility] Psychiatric Evaluation Comprehensive Examination Psychiatric Evaluation Comprehensive Examination [address] [facility] Screening Test Of Visual Acuity, Quantitative, Bilateral Screening Test Of Visual Acuity, Quantitative, Bilateral 40964 [address] [facility] Coordinated care fee, risk adjusted maintenance, Level 3 2007 LONGLYDIAA S DoD Case Management, each 15 minutes [address] [facility] Audiometry Group Testing Audiometry Group Testing [address] [facility] Immunization Admin By Intranasal / Oral Route One Vaccine Immunization Admin By Intranasal / Oral Route One Vaccine [address] [facility] Influenza Virus Vaccine Live Intranasal [address] [facility] Skin Test Anergy Tuberculin Intradermal Skin Test Anergy Tuberculin Intradermal [address] [facility] Venipuncture Venipuncture [address]Supervised Specimen Handling / Transfer: Office To Lab -Supervised Specimen Handling / Transfer: Office To Lab [address]Supervised Specimen Handling / Transfer: Office To Lab -Supervised Specimen Handling / Transfer: Office To Lab [address] [facility] Case Management, each 15 minutes 2007 LONG, IVANNA S [facility] Case Management, each 15 minutes 2007 LONG, IVANNA S [facility] Case Management, each 15 minutes 2007 LONG, IVANNA S [facility] Coordinated care fee, risk adjusted maintenance 2007 LONG, IVANNA S [facility] Case Management, each 15 minutes 2007 LONG, IVANNA S [facility] Case Management, each 15 minutes 2007 LONG, IVANNA S [facility] Case Management, each 15 minutes 2007 LONG, IVANNA S [facility] Case Management, each 15 minutes 2007 LONG, IVANNA S [facility] Case Management, each 15 minutes 2007 LONG, IVANNA S [facility] Case Management, each 15 minutes 2007 LONG, IVANNA S [facility] Case Management, each 15 minutes 2007 LONG, IVANNA S [facility] Case Management, each 15 minutes 2007 LONG, IVANNA S [facility] Treatment Of Swallowing Dysfunction Treatment Of Swallowing Dysfunction 57[address] [facility] Physical Therapy Neuromuscular Re-education Physical Therapy Neuromuscular Re-education [address] [facility] Treatment Of Swallowing Dysfunction Treatment Of Swallowing Dysfunction [id number] [facility] Training And Self-Care Skills Training And Self-Care Skills [id number] [facility] Medical Nutrition Therapy Re-a e ment, Intervention Medical Nutrition Therapy Re-assessment, Intervention [id number] [facility] Training And Self-Care Skills Training And Self-Care Skills [id number] [facility] Physical Therapy Neuromuscular Re-education Physical Therapy Neuromuscular Re-education [id number] [facility] Social History Combined list of available smoking, tobacco, and other social history 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 Social History Type Response Date Comment Sour e Tobacco smoking status NHIS VA-TOBACCO NEVER USED OTHER TYPE 03/29/2025 [facility] History of tobacco use VA-TOBACCO USE EVERY DAY CIGARETTES 03/29/2025 [facility] History of tobacco use [place]-TOBACCO FORMER USER 03/18/2024 [facility] History of tobacco use VA-TOBACCO USER EVERY DAY 03/18/2023 [facility] of [facility] DECLINE 11/06/2022 [facility] History of tobacco use ORYX ADMIT TOBACCO SCREEN YES 11/06/2022 [facility] History of tobacco use LIFETIME NON-USER OF TOBACCO 01/17/2011 [facility] History of tobacco use LIFETIME NON-USER OF TOBACCO 03/04/2008 [facility] This section is an empty social history section. [facility] Plan of Care List of future care activities from Department of 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 Additional future care activities may be listed in the Assessment and Plan section. Date/Time Care Activity Care Activity Detail Facili ty 07/01/2025 AMBULATORY - MEDICINE AMBULATORY - MEDICI NE [facility]
--- NOTE | 2025-05-14 11:42 | ED.GENADULT ---
HPI - General Adult General Chief complaint: Dental/Oral Stated complaint: mouth pain Time Seen by Provider: 05/14/25 11:30 History of Present Illness HPI narrative: Britt is a 39M with a PMH of poor dentition, and CVA that presented to the ED with a couple days of pain in his right lower teeth. No fevers or dysphagia. He does report fatigue but he has not been sleeping much. Related Data Allergies Allergy/AdvReac Type Severity Reaction Status Date / Time No Known Allergies Allergy Verified 05/14/25 12:01 Review of Systems Review of Systems: All systems reviewed & are unremarkable except as noted in HPI and below [facility] Past Medical History Medical History AVM (arteriovenous malformation) brain Seizures AVM (arteriovenous malformation) History of stroke Exam Const: General: cooperative, healthy appearing, comfortable, no acute distress, well developed, alert, awake and Physically active Orientation/consciousness: oriented to person, oriented to place and oriented to time HENMT: Head: normal to inspection, normocephalic and atraumatic Ears: hearing grossly normal bilaterally and external ears normal Face/Nose/Sinus: Normal external nose present Eyes: General: appearance normal, both eyes and all related structures Periorbital: periorbital findings normal Sclera: sclerae normal Pupils: Equal, round and reactive pupils present Neck: Neck: normal visual inspection Chest: Chest palpation & inspection: normal inspection of the chest Resp: Effort & Inspection: normal respiratory effort, able to speak in complete sentences and no respiratory distress Cardio: Jugular venous distension: no JVD Skin: General skin exam: normal color and no rashes or lesions noted Neuro: General: oriented to person, oriented to place and oriented to time Cranial nerves: Yes Equal, round and reactive pupils present Extrem: General: normal to inspection Course Course Emergency Course: Right lower canine was erythematous and very TTP Vital Signs Vital signs: Vital Signs Temperature 98.0 F 05/14/25 11:30 Pulse Rate 83 05/14/25 11:30 Respiratory Rate 16 05/14/25 11:30 Blood Pressure 157/81 H 05/14/25 11:30 Pulse Oximetry 95 05/14/25 11:30 Oxygen Delivery Room Air 05/14/25 11:30 Temperature 97.9 F 05/14/25 12:43 Pulse Rate 83 05/14/25 12:43 Respiratory Rate 18 05/14/25 12:43 Blood Pressure 126/75 05/14/25 12:43 Pulse Oximetry 96 05/14/25 12:43 Oxygen Delivery Room Air 05/14/25 12:43 Medical Decision Making Vital Signs Vital Signs: Vital Signs Temperature 98.0 F 05/14/25 11:30 Pulse Rate 83 05/14/25 11:30 Respiratory Rate 16 05/14/25 11:30 Blood Pressure 157/81 H 05/14/25 11:30 Pulse Oximetry 95 05/14/25 11:30 Oxygen Delivery Room Air 05/14/25 11:30 Temperature 97.9 F 05/14/25 12:43 Pulse Rate 83 05/14/25 12:43 Respiratory Rate 18 05/14/25 12:43 Blood Pressure 126/75 05/14/25 12:43 Pulse Oximetry 96 05/14/25 12:43 Oxygen Delivery Room Air 05/14/25 12:43 Lab Data Labs: Lab Results 05/14/25 Range/Units 11:37 Influenza A (RT-PCR) Negative (Negative) Influenza B (RT-PCR) Negative (Negative) RSV (RT-PCR) Negative (Negative) SARS-CoV-2 RNA (RT-PCR) Negative (Negative) Discharge Plan Discharge Clinical Impression: Dental infection Patient Disposition: Home Condition: Stable Instructions: Dental Abscess (ED) Patient Language: Palauan Prescriptions: New amoxicillin-pot clavulanate 875-125 mg tablet 1 tablet PO Q12H Qty: 10 0RF No Action amoxicillin-pot clavulanate 875-125 mg tablet 1 tablet PO BID 10 Days Qty: 20 0RF clindamycin HCl 300 mg capsule 300 mg PO TID 10 Days Qty: 30 0RF ibuprofen 800 mg tablet 800 mg PO TID PRN (Reason: pain) Qty: 30 0RF orphenadrine citrate 100 mg tablet extended release 100 mg PO BID PRN (Reason: pain) Qty: 20 0RF methylprednisolone [Medrol (Yariel)] 4 mg tablets,dose pack See Rx Instructions .ROUTE .COMPLEX Qty: 21 0RF Rx Instructions: orally per package directions amoxicillin 500 mg tablet 500 mg PO TID Qty: 30 0RF clindamycin HCl 300 mg capsule 300 mg PO Q8H Qty: 20 0RF amoxicillin-pot clavulanate [Augmentin] 500-125 mg tablet 1 tablet PO TID Qty: 30 0RF Follow-up/Referrals: Luis Benz MD [Primary Care Provider] - Stand Alone Forms: Work/School Release IP
--- OUTSIDE RECORDS SUMMARY | 2025-05-14 11:53 | XMS_ITS | Continuity of Care Document ---
Author Name [facility] Organization [facility] Care Team Providers Care Inspector Motor Vehicles Name Role Phone [facility] Unavailable Unavailable Problems Combined list of problems 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 It does not include entries that were removed or entered in error. Problem Status Onset Date Problem Type Date of Resolution Comments Source Adjustment disorder with depressed mood (SNOMED CT 47989220) Active Condition [facility] Cerebral aneurysm, nonruptured (ICD-9-CM 437.3) Active Condition [facility] Congenital arteriovenous malformation Active Condition Jan 17, 2011 Entered By: CHIOMA QUAN Comment: 12/2007 surgery in [facility] Diplopia * (ICD-9-CM 368.2) Active Condition [facility] Myopia Active Condition [facility] Pain of joint of knee (SNOMED CT 9080725349) Active Condition [facility] Pneumonia, organism unspecified Active Condition Jan 17, 2011 Entered By: HCIOMA QUAN Comment: August 2010, received pneumovax vaccineMar 08, 2011 Entered By: CHIOMA QUAN Comment: 02/20/11 rul and rml [facility] Sleep disturbances Active Condition [facility] Tinnitus Active Condition [facility] Vitamin D Deficiency (SCT 47923781) Active Condition [facility] Chest Pain * (ICD-9-CM 786.50) Inactive Condition 03/18/2023 [facility] Cyst, ganglion Inactive Condition 03/18/2023 Jan 17, 2011 Entered By: CHIOMA QUAN Comment: right wrist [facility] Encounters for unspecified Administrative Purpose (ICD-9-CM V68.9) Inactive Condition 03/18/2023 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 Dietary Counseling Pertaining To Specific Condition Inactive Condition 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 TRANSD ERMAL ACTIVE 03/30/2026 [id number] AARON KENNEDY 2024 28 [facility] NICOTINE POLACRILEX 2MG MINI LOZENGE DISSOLVE 1 LOZENGE BY MOUTH EVERY 4 HOURS NEEDED .DO NOT SMOKE WHILE USING THIS MEDICATI ON. ORAL ACTIVE 03/30/2026 [id number] 5 AARON KENNEDY 2024 162 [facility] Allergies, Adverse Reactions, Alerts Combined list of allergies 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 It does not include entries that were removed or entered in error. Substance Category Reaction Severity Reaction type Status Date Reported Comments Source ADHESIVE TAPE Propensity to adverse reaction (finding) Eruption active 1 [facility] OTHER Drug allergy (disorder) Unknown active 8 [facility] Immunizations Combined list of available immunizations from the 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 Comments Source PNEUMOCOCCAL POLYSACCHARID E PPV23 2022 BRIEN [facility]ERCE H R RIGHT DELTO ID [id number] 33 complet ed [facility] TDAP 2022 BRIEN [facility]ER[facility] H R LEFT DELTO ID [id number] 115 complet ed [facility] TDAP 5 2017 115 complet ed HISTORICA L INFORMATI ON - FROM OTHER [facility] INFLUENZA, UNSPECIFIED FORMULATION 2011 88 complet ed [facility] INFLUENZA, UNSPECIFIED FORMULATION 2010 88 complet ed [facility] tuberculin skin test; purified protein derivative solution, intradermal 0 2009 KAREEN ARMENDARIZ [id number] [place] 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 tuberculi n skin test; purified protein derivativ e solution, intraderm al DoD tuberculin skin test; purified protein derivative solution, intradermal 1 2009 JAZZ DAVIS [id number] [facility] ([facility]) complet ed tuberculi n skin test; purified protein derivativ e solution, intraderm al DoD tuberculin skin test; purified protein derivative solution, intradermal 1 2009 CIEAR FOREMAN [id number] 96 [facility] ([facility]) complet ed tuberculi n skin test; purified protein derivativ e solution, intraderm al DoD tuberculin skin test; purified protein derivative solution, intradermal 1 [id number] [facility] PASTEUR ([facility]) complet ed tuberculi n skin test; purified protein derivativ e solution, intraderm al DoD typhoid Vi capsular polysaccharid e vaccine 1 2009 WILTON SILVA [id number] [facility] ([facility]) complet ed typhoid Vi capsular polysacch aride vaccine DoD Novel Influenza-H1N 1-09, live virus for nasal administratio n 1 2009 WILTON SILVA [id number] [employer] (MED) complet ed Novel Influenza -H2F7-37, live virus for nasal administr ation DoD influenza virus vaccine, live, attenuated, for intranasal use 0 2008 UNK 111 Unknown (UNK) comple t ed influenza virus vaccine, live, attenuate d, for intranasa l use DoD influenza virus vaccine, live, attenuated, for intranasal use 1 2008 SERA PRASAD [id number] 111 [employer] (MED) complet ed influenza virus vaccine, live, attenuate d, for intranasa l use DoD tuberculin skin test; purified protein derivative solution, intradermal 1 2007 KAREEN ARMENDARIZ [id number] [place] () complet ed tuberculi n skin test; purified protein derivativ e solution, intraderm al DoD influenza virus vaccine, live, attenuated, for intranasal use 1 2007 KAREEN ARMENDARIZ [id number] 111 [employer] (MED) complet ed influenza virus vaccine, live, attenuate d, for intranasa l use DoD influenza virus vaccine, unspecified formulation 0 2006 UNK 88 Unknown (UNK) comple t ed influenza virus vaccine, unspecifi ed formulati on DoD tuberculin skin test; purified protein derivative solution, intradermal 1 2006 JAZZ DAVIS [id number] [facility] complet ed tuberculi n skin test; purified protein derivativ e solution, intraderm al DoD influenza virus vaccine, live, attenuated, for intranasal use 1 2006 PASQUALE SINHA [id number] 111 [employer] (MED) complet ed influenza virus vaccine, live, attenuate d, for intranasa l use DoD hepatitis B vaccine, adult dosage 3 2006 UNK 43 Unknown (UNK) comple t ed hepatitis B vaccine, adult dosage DoD hepatitis A and hepatitis B vaccine 3 2006 ROQUE WHITNEY [id number] [facility] ([facility] complet ed hepatitis A [...] L INFORMATI ON - FROM OTHER REGISTRY, [facility] HEP B, ADOLESCENT OR PEDIATRIC 2 1997 08 complet ed HISTORICA L INFORMATI ON - FROM OTHER REGISTRY, [facility] HEP B, ADOLESCENT OR PEDIATRIC 1 1997 08 complet ed HISTORICA L INFORMATI ON - FROM OTHER REGISTRY, [facility] DTP 4 1991 01 complet ed HISTORICA L INFORMATI ON - [facility], [facility]NS[facility] FORMUL[facility] 1 1991 17 complet ed HISTORICA L INFORMATI ON - FROM OTHER REGISTRY, [facility] MMR 2 1991 03 complet ed HISTORICA L INFORMATI ON - FROM OTHER REGISTRY, [facility] OPV, TRIVALENT 4 1991 02 complet ed HISTORICA L INFORMATI ON - FROM OTHER REGISTRY, [facility] DTP 3 1989 complet ed HISTORICA L INFORMATI ON - FROM OTHER REGISTRY, [facility] OPV, TRIVALENT 3 1989 02 complet ed HISTORICA L INFORMATI ON - FROM OTHER REGISTRY, [facility] MMR 1 1988 03 complet ed HISTORICA L INFORMATI ON - FROM OTHER REGISTRY, [facility] DTP 3 1987 complet ed HISTORICA L INFORMATI ON - FROM OTHER REGISTRY, [facility] OPV, TRIVALENT 3 1987 02 complet ed HISTORICA L INFORMATI ON - FROM OTHER REGISTRY, [facility] DTP 2 1987 complet ed HISTORICA L INFORMATI ON - FROM OTHER REGISTRY, [facility] OPV, TRIVALENT 2 1987 complet ed HISTORICA L INFORMATI ON - FROM OTHER REGISTRY, [facility] DTP 1 1987 complet ed HISTORICA L INFORMATI ON - FROM OTHER REGISTRY, [facility] OPV, TRIVALENT 1 1987 complet ed HISTORICA L INFORMATI ON - FROM OTHER REGISTRY, [facility] Results Combined list of [...] Mar 29, 2025 08:53 AM Reporting Lab: [facility] [address] [place] [phone] Performing Lab: [facility] [address] [place] [phone] [facility] CBC ERYTHROCYTES [#/VOLUME] IN BLOOD BY AUTOMATED COUNT 4.83 10*6/u L 4.10 - 5.70 03/29 Specimen Type: BLOOD No comment entered. Ordering Provider: Nicanor KENNEDY Report Released Date/Time: Mar 29, 2025 08:53 AM Reporting Lab: [facility] [address] [place] [phone] Performing Lab: [address] [address] [facility] CBC HEMOGLOBIN [MASS/VOLUME ] IN BLOOD 14.9 g/dL 13.1 - 16.8 03/29 Specimen Type: BLOOD No comment entered. Ordering Provider: Nicanor KENNEDY Report Released Date/Time: Mar 29, 2025 08:53 AM Reporting Lab: [address] [address] Performing Lab: [address] [place] [address] [facility] CBC HEMATOCRIT [VOLUME FRACTION] OF BLOOD 44.7 38.2 - 48.4 03/29 Specimen Type: BLOOD No comment entered. Ordering Provider: Nicanor KENNEDY Report Released Date/Time: Mar 29, 2025 08:53 AM Reporting Lab: [place] [phone] Performing Lab: [place] [id number] [address] [facility] CBC MCV [ENTITIC VOLUME] BY AUTOMATED COUNT 92.5 fL 80.0 - 100.0 03/29 Specimen Type: BLOOD No comment entered. Ordering Provider: Nicanor KENNEDY Report Released Date/Time: Mar 29, 2025 08:53 AM Reporting Lab: [place] [phone] Performing Lab: [place] [id number] [place] [address] [facility] CBC MCH [ENTITIC MASS] BY AUTOMATED COUNT 30.8 pg 27.0 - 34.0 03/29 Specimen Type: BLOOD No comment entered. Ordering Provider: Nicanor KENNEDY Report Released Date/Time: Mar 29, 2025 08:53 AM Reporting Lab: [address] [phone] Performing Lab: [address] [phone] [address] [facility] CBC MCHC [MASS/VOLUME ] BY AUTOMATED COUNT 33.3 g/dL 33.0 - 36.0 03/29 Specimen Type: BLOOD No comment entered. Ordering Provider: Nicanor KENNEDY Report Released Date/Time: Mar 29, 2025 08:53 AM Reporting Lab: [place] [phone] Performing Lab: [address] [phone] [address] [facility] CBC PLATELETS [#/VOLUME] IN BLOOD BY AUTOMATED COUNT 223 10*3/u L 150 - 400 03/29 Specimen Type: BLOOD No comment entered. Ordering Provider: Nicanor KENNEDY Report Released Date/Time: Mar 29, 2025 08:53 AM Reporting Lab: [facility] [address] [place] [phone] Performing Lab: [address] [phone] [facility] CBC PLATELET MEAN VOLUME [ENTITIC VOLUME] IN BLOOD BY AUTOMATED COUNT 10.6 fL 7.5 - 11.2 03/29 Specimen Type: BLOOD No comment entered. Ordering Provider: Nicanor KENNEDY Report Released Date/Time: Mar 29, 2025 08:53 AM Reporting Lab: [place] [phone] Performing Lab: [place] [id number] [facility] CBC ERYTHROCYTE DISTRIBUTION WIDTH [RATIO] BY AUTOMATED COUNT 12.0 11.8 - 15.1 03/29 Specimen Type: BLOOD No comment entered. Ordering Provider: Nicanor KENNEDY Report Released Date/Time: Mar 29, 2025 08:53 AM Reporting Lab: [place] [phone] Performing Lab: [place] [phone] [facility] CBC LYMPHOCYTES/ 100 LEUKOCYTES IN BLOOD BY AUTOMATED COUNT 37 03/29 Specimen Type: BLOOD No comment entered. Ordering Provider: Nicanor KENNEDY Report Released Date/Time: Mar 29, 2025 08:53 AM Reporting Lab: [facility] [address] [place] [address] Performing Lab: [place] [id number] [facility] CBC MONOCYTES/10 0 LEUKOCYTES IN BLOOD BY AUTOMATED COUNT 10 03/29 Specimen Type: BLOOD No comment entered. Ordering Provider: Nicanor KENNEDY Report Released Date/Time: Mar 29, 2025 08:53 AM Reporting Lab: [facility] [address] [place] [phone] Performing Lab: [place] [id number] [facility] CBC NEUTROPHILS/ 100 LEUKOCYTES IN BLOOD BY AUTOMATED COUNT 48 03/29 Specimen Type: BLOOD No comment entered. Ordering Provider: Nicanor KENNEDY Report Released Date/Time: Mar 29, 2025 08:53 AM Reporting Lab: [place] [phone] Performing Lab: [address] [facility] CBC EOSINOPHILS/ 100 LEUKOCYTES IN BLOOD BY AUTOMATED COUNT 4 03/29 Specimen Type: BLOOD No comment entered. Ordering Provider: Nicanor KENNEDY Report Released Date/Time: Mar 29, 2025 08:53 AM Reporting Lab: [facility] [address] [place], [place] [phone] Performing Lab: [address] [facility] CBC BASOPHILS/10 0 LEUKOCYTES IN BLOOD BY AUTOMATED COUNT 1 03/29 Specimen Type: BLOOD No comment entered. Ordering Provider: Nicanor KENNEDY Report Released Date/Time: Mar 29, 2025 08:53 AM Reporting Lab: [place] [address] Performing Lab: [address] [facility] CBC LYMPHOCYTES [#/VOLUME] IN BLOOD BY AUTOMATED COUNT 1.99 10*3/u L 0.77 - 4.50 03/29 Specimen Type: BLOOD No comment entered. Ordering Provider: Nicanor KENNEDY Report Released Date/Time: Mar 29, 2025 08:53 AM Reporting Lab: [facility] [address] [place] [address] Performing Lab: [facility] [address] [place] [phone] [facility] CBC MONOCYTES [#/VOLUME] IN BLOOD BY AUTOMATED COUNT 0.52 10*3/u L 0.19 - 0.80 03/29 Specimen Type: BLOOD No comment entered. Ordering Provider: Nicanor KENNEDY Report Released Date/Time: Mar 29, 2025 08:53 AM Reporting Lab: [address] [phone] Performing Lab: [address] [phone] [facility] CBC NEUTROPHILS [#/VOLUME] IN BLOOD BY AUTOMATED COUNT 2.62 10*3/u L 2.10 - 8.00 03/29 Specimen Type: BLOOD No comment entered. Ordering Provider: Nicanor KENNEDY Report Released Date/Time: Mar 29, 2025 08:53 AM Reporting Lab: [place] [phone] Performing Lab: [address] [phone] [facility] CBC EOSINOPHILS [#/VOLUME] IN BLOOD BY AUTOMATED COUNT 0.23 10*3/u L 0.00 - 0.60 03/29 Specimen Type: BLOOD No comment entered. Ordering Provider: Nicanor KENNEDY Report Released Date/Time: Mar 29, 2025 08:53 AM Reporting Lab: [address] [phone] Performing Lab: [address] [phone] [facility] CBC BASOPHILS [#/VOLUME] IN BLOOD BY AUTOMATED COUNT 0.07 10*3/u L 0.00 - 0.20 03/29 Specimen Type: BLOOD No comment entered. Ordering Provider: Nicanor KENNEDY Report Released Date/Time: Mar 29, 2025 08:53 AM Reporting Lab: [place] [phone] Performing Lab: [facility] [address] [address] [facility] COMPREHENSI VE METABOLIC PANEL CREATININE [MASS/VOLUME ] IN SERUM OR PLASMA 0.94 mg/dL 0.7 - 1.3 03/29 Specimen Type: PLASMA Comment: No hemolysis noted. Ordering Provider: Nicanor KENNEDY Report Released Date/Time: Mar 29, 2025 08:53 AM Reporting Lab: [address] [phone] Performing Lab: [address] [phone] [facility] COMPREHENSI VE METABOLIC PANEL UREA NITROGEN [MASS/VOLUME ] IN SERUM OR PLASMA 16.7 mg/dL 9.0 - 25.0 03/29 Specimen Type: PLASMA Comment: No hemolysis noted. Ordering Provider: Nicanor KENNEDY Report Released Date/Time: Mar 29, 2025 08:53 AM Reporting Lab: [facility] [address] [place] [phone] Performing Lab: [address] [phone] [facility] COMPREHENSI VE METABOLIC PANEL GLUCOSE [MASS/VOLUME ] IN SERUM OR PLASMA 97 mg/dL 72 - 99 03/29 Specimen Type: PLASMA Comment: No hemolysis noted. Ordering Provider: Nicanor KENNEDY Report Released Date/Time: Mar 29, 2025 08:53 AM Reporting Lab: [facility] [address] [place] [phone] Performing Lab: [address] [phone] [facility] COMPREHENSI VE METABOLIC PANEL SODIUM [MOLES/VOLUM E] IN SERUM OR PLASMA 139 meq/L 136 - 145 03/29 Specimen Type: PLASMA Comment: No hemolysis noted. Ordering Provider: Nicanor KENNEDY Report Released Date/Time: Mar 29, 2025 08:53 AM Reporting Lab: [address] [address] Performing Lab: [facility] [address] [address] [facility] COMPREHENSI VE METABOLIC PANEL POTASSIUM [MOLES/VOLUM E] IN SERUM OR PLASMA 4.0 meq/L 3.5 - 5 03/29 Specimen Type: PLASMA Comment: No hemolysis noted. Ordering Provider: Nicanor KENNEDY Report Released Date/Time: Mar 29, 2025 08:53 AM Reporting Lab: [facility] [address] [phone] Performing Lab: [facility] [address] [address] [facility] COMPREHENSI VE METABOLIC PANEL CHLORIDE [MOLES/VOLUM E] IN SERUM OR PLASMA 106 meq/L 98 - 107 03/29 Specimen Type: PLASMA Comment: No hemolysis noted. Ordering Provider: Nicanor KENNEDY Report Released Date/Time: Mar 29, 2025 08:53 AM Reporting Lab: [facility] [address] [facility] [address] Performing Lab: [place] [address] [address] [facility] COMPREHENSI VE METABOLIC PANEL CARBON DIOXIDE, TOTAL [MOLES/VOLUM E] IN SERUM OR PLASMA 24 meq/L 22 - 31 03/29 Specimen Type: PLASMA Comment: No hemolysis noted. Ordering Provider: Nicanor KENNEDY Report Released Date/Time: Mar 29, 2025 08:53 AM Reporting Lab: [facility] [address] [address] Performing Lab: [facility] [address] [address] [facility] COMPREHENSI VE METABOLIC PANEL CALCIUM [MASS/VOLUME ] IN SERUM OR PLASMA 9.1 mg/dL 8.4 - 10.4 03/29 Specimen Type: PLASMA Comment: No hemolysis noted. Ordering Provider: Nicanor KENNEDY Report Released Date/Time: Mar 29, 2025 08:53 AM Reporting Lab: [facility] [address] [address] Performing Lab: [facility] [address] [place] [phone] [facility] COMPREHENSI VE METABOLIC PANEL PROTEIN [MASS/VOLUME ] IN SERUM OR PLASMA 7.2 g/dL 6 - 8.6 03/29 Specimen Type: PLASMA Comment: No hemolysis noted. Ordering Provider: Nicanor KENNEDY Report Released Date/Time: Mar 29, 2025 08:53 AM Reporting Lab: [facility] [address] [place] [phone] Performing Lab: [address] [phone] [facility] COMPREHENSI VE METABOLIC PANEL ALBUMIN [MASS/VOLUME ] IN SERUM OR PLASMA 4.5 g/dL 3.4 - 5 03/29 Specimen Type: PLASMA Comment: No hemolysis noted. Ordering Provider: Nicanor KENNEDY Report Released Date/Time: Mar 29, 2025 08:53 AM Reporting Lab: [address] [phone] Performing Lab: [address] [phone] [facility] COMPREHENSI VE METABOLIC PANEL BILIRUBIN.TO ANTONI [MASS/VOLUME ] IN SERUM OR PLASMA 0.3 mg/dL 0.2 - 1.2 03/29 Specimen Type: PLASMA Comment: No hemolysis noted. Ordering Provider: Nicanor KENNEDY Report Released Date/Time: Mar 29, 2025 08:53 AM Reporting Lab: [facility] [address] [place] [phone] Performing Lab: [address] [phone] [facility] COMPREHENSI VE METABOLIC PANEL ALKALINE PHOSPHATASE [ENZYMATIC ACTIVITY/VOL UME] IN SERUM OR PLASMA 83 U/L 40 - 150 03/29 Specimen Type: PLASMA Comment: No hemolysis noted. Ordering Provider: Nicanor KENNEDY Report Released Date/Time: Mar 29, 2025 08:53 AM Reporting Lab: [facility] [address] [place] [phone] Performing Lab: [address] [phone] [address] [facility] COMPREHENSI VE METABOLIC PANEL ASPARTATE AMINOTRANSFE RASE [ENZYMATIC ACTIVITY/VOL UME] IN SERUM OR PLASMA 31 U/L 5 - 34 03/29 Specimen Type: PLASMA Comment: No hemolysis noted. Ordering Provider: Nicanor KENNEDY Report Released Date/Time: Mar 29, 2025 08:53 AM Reporting Lab: [address] [address] Performing Lab: [address] [phone] [place] [address] [facility] COMPREHENSI VE METABOLIC PANEL ALANINE AMINOTRANSFE RASE [ENZYMATIC ACTIVITY/VOL UME] IN SERUM OR PLASMA 26 U/L 8 - 40 03/29 Specimen Type: PLASMA Comment: No hemolysis noted. Ordering Provider: Nicanor KENNEDY Report Released Date/Time: Mar 29, 2025 08:53 AM Reporting Lab: [address] [address] Performing Lab: [address] [phone] [place] [address] [facility] COMPREHENSI VE METABOLIC PANEL GLOMERULAR FILTRATION RATE/1.73 SQ M.PREDICTED [VOLUME RATE/AREA] IN SERUM, PLASMA OR BLOOD BY CREATININE-B ASED FORMULA (CKD-EPI 2020) 107.1 60 03/29 Specimen Type: PLASMA Comment: No hemolysis noted. Ordering Provider: Nicanor KENNEDY Report Released Date/Time: Mar 29, 2025 08:53 AM Reporting Lab: [address] [phone] Performing Lab: [address] [phone] [place] [address] [facility] HGA1C HEMOGLOBIN A1C/HEMOGLOB IN.TOTAL IN BLOOD 5.9 4.0 - 6.0 03/29 Specimen Type: BLOOD No comment entered. Ordering Provider: Nicanor KENNEDY Report Released Date/Time: Mar 29, 2025 08:53 AM Reporting Lab: [facility] [address] [place] [phone] Performing Lab: [facility] [address] [place] [phone] [facility] LIPID PANEL (STL) CHOLESTEROL [MASS/VOLUME ] IN SERUM OR PLASMA 199 mg/dL 0 - 200 03/29 Specimen Type: PLASMA Comment: No hemolysis noted. Ordering Provider: Nicanor KENNEDY Report Released Date/Time: Mar 29, 2025 08:53 AM Reporting Lab: [facility] [address] [place] [phone] Performing Lab: [facility] [address] [place] [phone] [facility] LIPID PANEL (STL) TRIGLYCERIDE [MASS/VOLUME ] IN SERUM OR PLASMA 196 mg/dL 0 - 150 03/29 H Specimen Type: PLASMA Comment: No hemolysis noted. Ordering Provider: Nicanor KENNEDY Report Released Date/Time: Mar 29, 2025 08:53 AM Reporting Lab: [facility] [address] [place] [phone] Performing Lab: [facility] [address] [place] [phone] [facility] LIPID PANEL (STL) CHOLESTEROL IN LDL [MASS/VOLUME ] IN SERUM OR PLASMA BY CALCULATION 119 mg/dL 03/29 Specimen Type: PLASMA Comment: No hemolysis noted. Ordering Provider: Nicanor KENNEDY Report Released Date/Time: Mar 29, 2025 08:53 AM Reporting Lab: [facility] [address] [place] [phone] Performing Lab: [facility] [address] [place] [phone] [facility] LIPID PANEL (STL) CHOLESTEROL IN HDL [MASS/VOLUME ] IN SERUM OR PLASMA 41 mg/dL 40 03/29 Specimen Type: PLASMA Comment: No hemolysis noted. Ordering Provider: Nicanor KENNEDY Report Released Date/Time: Mar 29, 2025 08:53 AM Reporting Lab: [facility] [address] [place] [address] Performing Lab: [facility] [address] [place] [address] [facility]OC TSH W/ REFLEX FT4 (STL) THYROTROPIN [UNITS/VOLUM E] IN SERUM OR PLASMA 1.606 u[IU]/ mL 0.47 - 5 03/29 Specimen Type: PLASMA No comment entered. Ordering Provider: Nicanor KENNEDY Report Released Date/Time: Mar 29, 2025 08:53 AM Reporting Lab: [place] [address] Performing Lab: [address] [facility] VITAMIN D, 25-HYDROXY 25-HYDROXYVI TAMIN D3 [MASS/VOLUME ] IN SERUM OR PLASMA 37.6 ng/mL 30 - 96 03/29 Specimen Type: SERUM No comment entered. Ordering Provider: Nicanor KENNEDY Report Released Date/Time: Mar 29, 2025 08:53 AM Reporting Lab: [facility] [address] [place] [address] Performing Lab: [address] [facility] COMPREHENSI VE METABOLIC PANEL CREATININE [MASS/VOLUME ] IN SERUM OR PLASMA 1.14 mg/dL 0.7 - 1.3 03/18 Specimen Type: PLASMA Comment: No hemolysis noted. Ordering Provider: Nicanor KENNEDY Report Released Date/Time: Mar 18, 2024 10:55 AM Reporting Lab: [facility] [address] [place] [address] Performing Lab: [address] [phone] [address] [facility]OC COMPREHENSI VE METABOLIC PANEL UREA NITROGEN [MASS/VOLUME ] IN SERUM OR PLASMA 16.6 mg/dL 9.0 - 25.0 03/18 Specimen Type: PLASMA Comment: No hemolysis noted. Ordering Provider: Nicanor KENNEDY Report Released Date/Time: Mar 18, 2024 10:55 AM Reporting Lab: [facility] [address] [place] [phone] Performing Lab: [address] [phone] [place] [address] CBOC COMPREHENSI VE METABOLIC PANEL GLUCOSE [MASS/VOLUME ] IN SERUM OR PLASMA 108 mg/dL 72 - 99 03/18 H Specimen Type: PLASMA Comment: No hemolysis noted. Ordering Provider: Nicanor KENNEDY Report Released Date/Time: Mar 18, 2024 10:55 AM Reporting Lab: [address] [phone] Performing Lab: [address] [phone] [address] [facility]OC COMPREHENSI VE METABOLIC PANEL SODIUM [MOLES/VOLUM E] IN SERUM OR PLASMA 139 meq/L 136 - 145 03/18 Specimen Type: PLASMA Comment: No hemolysis noted. Ordering Provider: Nicanor KENNEDY Report Released Date/Time: Mar 18, 2024 10:55 AM Reporting Lab: [address] [address] Performing Lab: [address] [phone] [facility] COMPREHENSI VE METABOLIC PANEL POTASSIUM [MOLES/VOLUM E] IN SERUM OR PLASMA 4.9 meq/L 3.5 - 5 03/18 Specimen Type: PLASMA Comment: No hemolysis noted. Ordering Provider: Nicanor KENNEDY Report Released Date/Time: Mar 18, 2024 10:55 AM Reporting Lab: [facility] [address] [place] [phone] Performing Lab: [address] [phone] [facility] COMPREHENSI VE METABOLIC PANEL CHLORIDE [MOLES/VOLUM E] IN SERUM OR PLASMA 106 meq/L 98 - 107 03/18 Specimen Type: PLASMA Comment: No hemolysis noted. Ordering Provider: Nicanor KENNEDY Report Released Date/Time: Mar 18, 2024 10:55 AM Reporting Lab: [address] [phone] Performing Lab: [address] [phone] [address] [facility]OC COMPREHENSI VE METABOLIC PANEL CARBON DIOXIDE, TOTAL [MOLES/VOLUM E] IN SERUM OR PLASMA 25 meq/L 22 - 31 03/18 Specimen Type: PLASMA Comment: No hemolysis noted. Ordering Provider: Nicanor KENNEDY Report Released Date/Time: Mar 18, 2024 10:55 AM Reporting Lab: [address] [phone] Performing Lab: [address] [phone] [place] [address] [facility]OC COMPREHENSI VE METABOLIC PANEL CALCIUM [MASS/VOLUME ] IN SERUM OR PLASMA 9.3 mg/dL 8.4 - 10.4 03/18 Specimen Type: PLASMA Comment: No hemolysis noted. Ordering Provider: Nicanor KENNEDY Report Released Date/Time: Mar 18, 2024 10:55 AM Reporting Lab: [address] [phone] Performing Lab: [address] [phone] [address] [facility]OC COMPREHENSI VE METABOLIC PANEL PROTEIN [MASS/VOLUME ] IN SERUM OR PLASMA 6.9 g/dL 6 - 8.6 03/18 Specimen Type: PLASMA Comment: No hemolysis noted. Ordering Provider: Nicanor KENNEDY Report Released Date/Time: Mar 18, 2024 10:55 AM Reporting Lab: [address] [phone] Performing Lab: [address] [phone] [facility] COMPREHENSI VE METABOLIC PANEL ALBUMIN [MASS/VOLUME ] IN SERUM OR PLASMA 4.3 g/dL 3.4 - 5 03/18 Specimen Type: PLASMA Comment: No hemolysis noted. Ordering Provider: Nicanor KENNEDY Report Released Date/Time: Mar 18, 2024 10:55 AM Reporting Lab: [address] [phone] Performing Lab: [address] [phone] [facility] COMPREHENSI VE METABOLIC PANEL BILIRUBIN.TO ANTONI [MASS/VOLUME ] IN SERUM OR PLASMA 0.5 mg/dL 0.2 - 1.2 03/18 Specimen Type: PLASMA Comment: No hemolysis noted. Ordering Provider: Nicanor KENNEDY Report Released Date/Time: Mar 18, 2024 10:55 AM Reporting Lab: [address] [phone] Performing Lab: [address] [address] [facility] COMPREHENSI VE METABOLIC PANEL ALKALINE PHOSPHATASE [ENZYMATIC ACTIVITY/VOL UME] IN SERUM OR PLASMA 73 U/L 40 - 150 03/18 Specimen Type: PLASMA Comment: No hemolysis noted. Ordering Provider: Nicanor KENNEDY Report Released Date/Time: Mar 18, 2024 10:55 AM Reporting Lab: [address] [phone] Performing Lab: [address] [address] [facility] COMPREHENSI VE METABOLIC PANEL ASPARTATE AMINOTRANSFE RASE [ENZYMATIC ACTIVITY/VOL UME] IN SERUM OR PLASMA 28 U/L 5 - 34 03/18 Specimen Type: PLASMA Comment: No hemolysis noted. Ordering Provider: Nicanor KENNEDY Report Released Date/Time: Mar 18, 2024 10:55 AM Reporting Lab: [address] [address] Performing Lab: [address] [address] [facility] COMPREHENSI VE METABOLIC PANEL ALANINE AMINOTRANSFE RASE [ENZYMATIC ACTIVITY/VOL UME] IN SERUM OR PLASMA 24 U/L 8 - 40 03/18 Specimen Type: PLASMA Comment: No hemolysis noted. Ordering Provider: Nicanor KENNEDY Report Released Date/Time: Mar 18, 2024 10:55 AM Reporting Lab: [facility] [address] [place] [phone] Performing Lab: [address] [phone] [facility] COMPREHENSI VE METABOLIC PANEL GLOMERULAR FILTRATION RATE/1.73 SQ M.PREDICTED [VOLUME RATE/AREA] IN SERUM, PLASMA OR BLOOD BY CREATININE-B ASED FORMULA (CKD-EPI 2020) 85.5 60 03/18 Specimen Type: PLASMA Comment: No hemolysis noted. Ordering Provider: Nicanor KENNEDY Report Released Date/Time: Mar 18, 2024 10:55 AM Reporting Lab: [facility] [address] [facility] [address] Performing Lab: [address] [phone] [address] CBOC HGA1C HEMOGLOBIN A1C/HEMOGLOB IN.TOTAL IN BLOOD 5.5 4.0 - 6.0 03/18 Specimen Type: BLOOD No comment entered. Ordering Provider: Nicanor KNENEDY Report Released Date/Time: Mar 18, 2024 10:55 AM Reporting Lab: [facility] [address] [facility] [address] Performing Lab: [facility] [address] [facility] [phone] [place] [address] [facility]OC LIPID PANEL (STL) CHOLESTEROL [MASS/VOLUME ] IN SERUM OR PLASMA 209 mg/dL 0 - 200 03/18 H Specimen Type: PLASMA Comment: No hemolysis noted. Ordering Provider: Nicanor KENNEDY Report Released Date/Time: Mar 18, 2024 10:55 AM Reporting Lab: [facility] [address] [facility] [phone] Performing Lab: [facility] [address] [facility] [address] [facility] LIPID PANEL (STL) TRIGLYCERIDE [MASS/VOLUME ] IN SERUM OR PLASMA 247 mg/dL 0 - 150 03/18 H Specimen Type: PLASMA Comment: No hemolysis noted. Ordering Provider: Nicanor KENNEDY Report Released Date/Time: Mar 18, 2024 10:55 AM Reporting Lab: [address] [address] Performing Lab: [address] [phone] [facility] LIPID PANEL (STL) CHOLESTEROL IN LDL [MASS/VOLUME ] IN SERUM OR PLASMA BY CALCULATION 106 mg/dL 03/18 Specimen Type: PLASMA Comment: No hemolysis noted. Ordering Provider: Nicanor KENNEDY Report Released Date/Time: Mar 18, 2024 10:55 AM Reporting Lab: [address] [address] Performing Lab: [address] [phone] [facility] LIPID PANEL (STL) CHOLESTEROL IN HDL [MASS/VOLUME ] IN SERUM OR PLASMA 54 mg/dL 40 03/18 Specimen Type: PLASMA Comment: No hemolysis noted. Ordering Provider: Nicanor KENNEDY Report Released Date/Time: Mar 18, 2024 10:55 AM Reporting Lab: [address] [address] Performing Lab: [address] [phone] [facility] TSH W/ REFLEX FT4 (STL) THYROTROPIN [UNITS/VOLUM E] IN SERUM OR PLASMA 0.605 u[IU]/ mL 0.47 - 5 03/18 Specimen Type: PLASMA No comment entered. Ordering Provider: Nicanor KENNEDY Report Released Date/Time: Mar 18, 2024 10:55 AM Reporting Lab: [facility] [address] [place] [phone] Performing Lab: [facility] [address] [facility] [address] [facility] Vital Signs Combined list of inpatient and outpatient Vital Signs from Department of Defense and Veterans Affairs, ranging from 12 months to all on record, depending upon the facility. Vital Sign Value Date Comments Source SYSTOLIC BLOOD PRESSURE 120 03/29/2025 08:34:07 [facility] DIASTOLIC BLOOD PRESSURE 83 03/29/2025 08:34:07 [...] to the last 18 months, not all PA inpatient encounters are included; 2) Encounters from the Department of [facility] facilities going backup to 280 months. Location Location Details Encounter Type Encounter Number Reason For Visit Attending Provider ADM Date DC Date Status Disposition Source [facility]( art Team 1007) OUTPATIENT [id number] HARVEY BAPTISTE 07/08 Released with Work/Duty Limitations [facility]( Smart Team 1007) [facility]( art Team 1007) OUTPATIENT [id number] lft knee pain MIKE FORD 07/22 Released with Work/Duty Limitations [facility]( Smart Team 1007) [facility](Pa litambrose Sick Call [facility] 237) OUTPATIENT [id number] L knee BEN BARNETT 08/26 Released with Work/Duty Limitations [facility]( Militar y Sick Call [facility] 237) [facility](Pa litary Sick Call [place] [address]) OUTPATIENT [id number] left knee AARTI STOVER 09/15 Released w/o Limitations [facility]( Militar y Sick Call [facility] 237) [facility](Pa litary Sick Call [place] [address]) OUTPATIENT [id number] pt c/o N/V. GUSTAVO SAMAYOA 09/16 Sick at Home/Quarter s [facility]( Militar y Sick Call [place] [address]) [facility] [place] [address]) OUTPATIENT [id number] f/u streap throat PRAMOD ARAUJO 10/03 Released w/o Limitations [facility]( [facility] [place] [address]) [facility] Sick Call [place] [address]) OUTPATIENT [id number] pt c/o left knee pain since bootcam p. AARTI STOVER 10/10 Released with Work/Duty Limitations [facility]( [facility] [place] [address]) [facility] Sick Call [place] [address]) OUTPATIENT [id number] knee f/u AARTI STOVER 10/20 Released with Work/Duty Limitations [facility] [place] [address] Sick Call [place] [address]) OUTPATIENT [id number] eval for ffd GUSTAVO SAMAYOA 10/24 Released with Work/Duty Limitations [facility]( Militar y Sick Call [place] [address]) [facility] Sick Call [place] [address]) OUTPATIENT [id number] sore throat AARTI STOVER 10/29 Sick at Home/Quarter s [facility]( Militar y Sick Call [facility] 237) [facility](Pa litary Sick Call [facility] 237) OUTPATIENT [id number] f/u strep AARTI STOVER 10/30 Released w/o Limitations [facility] Fed [facility]( Militar y Sick Call [facility] 237) [facility](Mi litary Sick Call [facility] 237) OUTPATIENT [id number] f/u L knee AARTI STOVER 11/18 Released w/o Limitations [facility] Milit[facility] y Sick Call [facility] 237) [facility](Ph ysical Therapy/2 37) OUTPATIENT [id number] BRET VILLA 11/21 Released with Work/Duty Limitations [facility]( Physica l Therapy /237) [facility] [place]( [facility]) OUTPATIENT [id number] PHYSICA L GUSTAVO VALLE 03/19 Released w/o Limitations [facility] [place]( [place] [facility]) [facility] [place]( oton Hearing Conservat ion) OUTPATIENT [id number] RITCHEI JULES 03/19 Released w/o Limitations [facility] [place]( [place] [facility]) [facility] [place]) OUTPATIENT [id number] KOMAL SYED 03/19 Released w/o Limitations [facility] [place]( [place] [facility]) [facility] [place]( oton Undersea Medicine) OUTPATIENT [id number] SUB PHYS TAMIA DRUMMOND 03/31 Released w/o Limitations [facility] [place]( [place] [facility]) [facility] [place](Gr oton Immunizat ion) OUTPATIENT [id number] Immuniz ations SAM PIRES 04/08 Released w/o Limitations [facility] [place]( [place] Immun[facility]) [facility] [place](Gr oton [facility]sea [facility]) OUTPATIENT [id number] SUB DUTY SIMON OAKES 05/01 Released with Work/Duty Limitations [facility] [place]( [place] [facility]) [facility] [place]([facility]) OUTPATIENT [id number] mental health clearan SIMON Rosario 07/14 Released with Work/Duty Limitations [facility] [place]( [place] [facility]) [facility](Gr oton Undersea Medicine) OUTPATIENT [id number] R Hand injury LIZETH JENKINS 07/17 Released with Work/Duty Limitations [facility] [place]( [place] [facility]) [facility](Immuniz ations [facility]) OUTPATIENT [id number] ppd/flu mist PLASCENCIAYVONNEShalom ARENAS 08/28 Released w/o Limitations [facility](Imm unizati ons [facility] ) [facility](Immuniz ations [facility]) OUTPATIENT [id number] ppd read JAZZ DAVIS 08/31 Released w/o Limitations [facility](Imm unizati ons [facility] ) [facility] ER, [facility] TO [facility] [id number] ANA HANLEY 01/15 RETURNED TO DUTY [facility](Nutriti on [facility]) INPATIENT [id number] CHIDI Sterling 01/19 Inpatient- Still a Patient [facility](Nut rition [facility]) [facility](Nutriti on [facility]) INPATIENT [id number] TF f/u CHIDI ROBERT 01/24 Inpatient- Still a Patient [facility](Nut rition [facility]) [facility](Infecti ous Disease [facility]) INPATIENT [id number] TETO GARCÍA 01/26 Inpatient- Still a Patient [facility](Inf ectious Disease [facility]) [facility](Nutriti on NMCP) INPATIENT [id number] TF f/u CHIDI ROBERT 01/27 Inpatient- Still a Patient [facility](Nut rition [facility]) [facility](Infecti ous Disease [facility]) INPATIENT [id number] ELIEL TANG 01/27 Inpatient- Still a Patient [facility](Inf ectious Disease [facility]) [facility](Cardiol ogy [facility]) INPATIENT [id number] LUZMARIA Gaming 01/28 Inpatient- Still a Patient [facility](Car diology [facility]) [facility](Social Work [facility]) INPATIENT [id number] Psycho- social assessm HECTOR Johnson 02/03 Inpatient- Still a Patient [facility](Soc ial Work [facility]) [facility](Speech Pathology [facility]) INPATIENT [id number] Evaluat e for Passy Melba Speakin g Valve ODALIS RODRIGUEZ 02/07 Inpatient- Still a Patient [facility](Spe ech Patholo gy [facility]) [facility](Speech Pathology [facility]) INPATIENT [id number] AVM ODALIS RODRIGUEZ 02/08 Inpatient- Still a Patient [facility](Spe ech Patholo gy [facility]) [facility](Speech Pathology [facility]) INPATIENT [id number] ODALIS RODRIGUEZ 02/09 Inpatient- Still a Patient [facility](Spe ech Patholo gy [facility]) [facility](Speech Pathology [facility]) INPATIENT [id number] ODALIS RODRIGUEZ 02/10 Inpatient- Still a Patient [facility](Spe ech Patholo gy [facility]) [facility](Occ Therapy [facility]) [facility] [id number] [facility] Inpatient- Still a Patient [facility](Occ Therapy [facility]) [facility](Occ Therapy [facility]) [facility]PATIENT [id number] [facility] Inpatient- Still a Patient [facility](Occ Therapy [facility]) [facility](Occ Therapy [facility]) [facility] [id number] [facility]- Still a Patient [facility](Occ Therapy [facility]) [facility](Nutriti on NMCP) INPATIENT [id number] YOLANDA CEDEÑO 02/15 Inpatient- Still a Patient [facility](Nut rition [facility]) [facility] [place] [facility](Occ Therapy [facility]) INPATIENT [id number] in JAZZ Moe. 02/16 Inpatient- Still a Patient [facility] [place] [facility](Occ Therapy [facility]) [facility] [place] [facility](Speech Pathology [facility]) INPATIENT [id number] Re assess Swallow functio n ODALIS RODRIGUEZ 02/16 Inpatient- Still a Patient [facility] [place] [facility](Spe ech Patholo gy [facility]) [facility] [place] [facility](Occ Therapy [facility]) INPATIENT [id number] in JAZZ Moe. 02/16 Inpatient- Still a Patient [facility] [place] [facility](Occ Therapy [facility]) [facility] [place] [facility](Speech Pathology [facility]) INPATIENT [id number] ODALIS RODRIGUEZ 02/16 Inpatient- Still a Patient [facility] [place] [facility](Spe ech Patholo gy [facility]) [facility] [place] [facility](Speech Pathology [facility]) INPATIENT [id number] Dysphag ia ODALIS Mejia 02/17 Inpatient- [facility] [place] [facility](Spe ech Patholo gy [facility]) [facility] [place] [facility](Case Managemen t [facility] [place] [facility]) OUTPATIENT [id number] CASE MANAGEM ENT IVANNA CORTÉS S 03/08 Released w/o Limitations [facility] [place] [facility](Dajuan e Managem [facility] [place]) [facility] [place] [facility] Managemen [facility] [place] [facility]) OUTPATIENT [id number] CASE MANAGEM ENT IVANNA CORTÉS S 03/09 Released w/o Limitations [facility] [place] [facility]([place]aj[place] [facility] Managem ent [facility] [place] [facility]) [facility] [place] [facility](Case Mgmt Active Duty (AD)) OUTPATIENT [id number] CASE MANAGEM ENT IVANNA CORTÉS S 03/10 Released w/o Limitations [facility] [place] [facility](Dajuan e Mgmt Active Duty (AD)) [facility] [place] [facility](Case Mgmt Active Duty (AD)) OUTPATIENT [id number] IVANNA CORTÉS S 03/14 Released w/o Limitations [facility] [place] [facility](Dajuan e Mgmt Active Duty (AD)) [facility] [place] [facility](Case Mgmt Active Duty (AD)) OUTPATIENT [id number] CASE MANAGEM ENT IVANNA CORTÉS S 03/15 Released w/o Limitations [facility] [place](Dajuan e Mgmt Active Duty (AD)) [facility] [place] [facility](Case Managemen [facility] [place] [facility]) OUTPATIENT [id number] CASE MANAGEM ENT IVANNA CORTÉS S 03/17 [place]ased w/o Limitations [place]Dajuan e Managem ent [facility]) [facility] [place] [facility](Case Mgmt Active Duty (AD)) OUTPATIENT [id number] CASE MANAGEM ENT IVANNA CORTÉS S 03/18 Released w/o Limitations [facility] [place](Dajuan e Mgmt Active Duty (AD)) [facility] [place](Neurosu rgery [facility]) OUTPATIENT [id number] preangi o for 04/11/ from [facility]/va n leave ANA HANLEY 03/25 Released w/o Limitations [facility] [place] [facility](William rosurge ry [facility]) [facility] [place]([facility]) OUTPATIENT [id number] bump under R armpit x 3 days HODGESMARYLU LOPEZ F 04/05 Released w/o Limitations [facility] [place] [facility] ) [facility] [place] DIRECT TO MTF FROM OTHER THAN ER OR [facility] [id number] MELISSAEDUIN AMADOR RACHEL 04/11 [employer] [facility] [place](Neurosu rgery [facility]) OUTPATIENT [id number] f/u after angiogr am 04/11 ANA HANLEY 04/14 Released w/o Limitations [facility] [place] [facility](William rosurge ry [facility]) [facility] [place] [facility] ADMISSION RESULTING FROM [facility], DIRECT TO MTF [id number] ANA HANLEY 04/19 RETURNED TO DUTY [facility] [place] [facility]su [facility]gery [facility]) TELE CONSULT [id number] please call pt post surgery . Dr.Cobe brown, perform ed surgery 2 weeks ago. CHELSEA NEAL 05/06 [facility](William rosurge ry NM[facility]) [facility] [place](Case Managemen t [facility] [place]) OUTPATIENT [id number] Case Managem ent IVANNA CORTÉS S 05/06 Released w/o Limitations [facility](Dajuan e Managem ent [facility]) [facility] [place](Neurosu rgery [facility]) TELE CONSULT [id number] pt would like for you to call him back, did not give details as to why. CHELSEA NEAL Mahin 05/23 [facility](William rosurge ry [facility]) [facility] [place](Neurosu rgery [facility]) OUTPATIENT [id number] 1st post op f/u; no xrays ANA HANLEY 05/31 Released w/o Limitations [facility](William rosurge ry NM[facility]) [facility] [place](Neurosu rgery [facility]) TELE CONSULT [id number] [facility] FOR YOU CHELSEA NEAL Mahin 06/22 [facility](William rosurge ry NMCP) [facility] [place] ([facility]) OUTPATIENT [id number] c/o hang nail ingrown on lt foot 3 wks HIGHANUJEL 06/28 Released w/o Limitations [facility] ) [facility] [place](Neurosu rgery [facility]) TELE CONSULT [id number] Med board CHELSEA NEAL Mahin 07/22 [facility](William rosurge ry NMCP) [facility]uro[facility]gery [place]) TELE CONSULT [id number] Quest[facility] CHELSEA NEAL 08/03 [facility](William rosurge ry NMCP) [facility] [place] [facility](Case Mgmt Active Duty (AD)) OUTPATIENT [id number] Case Managem ent IVANNA CORTÉS S 08/16 Released w/o Limitations [facility](Dajuan e Mgmt Active Duty (AD)) [facility] h(Case Mgmt Active Duty (AD)) OUTPATIENT [id number] Case Managem ent IVANNA CORTÉS S 08/17 Released w/o Limitations [facility](Dajuan e Mgmt Active Duty (AD)) [facility](Case Mgmt Active Duty (AD)) OUTPATIENT [id number] Case Managem ent LYDIA CORTÉSA S 08/18 Released w/o Limitations [facility](Dajuan e Mgmt Active Duty (AD)) [facility] [place](Case Mgmt Active Duty (AD)) OUTPATIENT [id number] Case Managem ent MOO, IVANNA S 08/19 Released w/o Limitations [facility](Dajuan e Mgmt Active Duty (AD)) [facility] [place]) OUTPATIENT [id number] poss strep throat 2 days. TAMIA BALTAZAR 08/26 Released w/o Limitations [facility] [place] ) [facility] [place]) OUTPATIENT [id number] sore throat, weaknes s x 8 days; already seen but not better DAKOTA MCCORMICK 09/01 Released w/o Limitations [facility] [place] ) [facility] [place](Hearing Cons [place] [employer]) OUTPATIENT [id number] PAL MCLEOD 09/05 Released w/o Limitations [facility](Hea ring Cons [place] [employer]) [facility] [place](Immuniz ations [facility] [place]) OUTPATIENT [id number] ppd/flu mist KAREEN ARMENDARIZ 09/05 Released w/o Limitations [facility](Imm unizati ons [facility] [place] ) [facility] [place](Case Mgmt Active Duty (AD)) OUTPATIENT [id number] Case Managem ent IVANNA CORTÉS S 09/05 Released w/o Limitations [facility](Dajuan e Mgmt Active Duty (AD)) [facility](Immuniz ations [facility] [place]) OUTPATIENT [id number] ppd check JESSICA SOSA 09/07 Released w/o Limitations [facility](Imm unizati ons [facility] ) [facility](Neurosu rgery NMCP) OUTPATIENT [id number] f/u EDUIN TORRES RACHEL 10/04 Released with Work/Duty Limitations [facility] [place] [facility](William rosurge ry [place]) [facility] [place] [place] OUTPATIENT [id number] part 2 [facility] 10/06 [facility]ased w/o Limitations [facility] [place] [place](Neurosu rgery NMCP) TELE CONSULT [id number] DR. HANLEY PATIENT CHELSEA NEAL 10/20 [facility](William rosurge ry NMCP) [facility] [place] [facility](Case Mgmt Active Duty (AD)) OUTPATIENT [id number] Case Managem ent IVANNA CORTÉS 10/26 Released w/o Limitations [facility] [place]uan e Mgmt Active Duty (AD)) [facility] [place] [facility](Occ Therapy [place]CP) OUTPATIENT [id number] [facility] DELETE_TA _MEREDITH BUCKNER 10/26 Released w/o Limitations [facility] [place] [facility](Occ Therapy [place]) [facility] [place](Occ Therapy NMCP) OUTPATIENT [id number] LILI MONTES 10/31 Released w/o Limitations [facility] [place](Occ Therapy [place]) [facility] [place] [facility](Occ Therapy [place]) OUTPATIENT [id number] PAULO CORTÉS 11/02 Released w/o Limitations [facility] [place](Occ Therapy [place]) [facility] [place](Neurosu rgery NMCP) TELE CONSULT [id number] Letter CHELSEA NEAL 11/04 [facility] [place](William rosurge ry NMCP) [facility] [place] [facility](Occ Therapy NMCP) OUTPATIENT [id number] PAULO CORTÉS 11/07 Released w/o Limitations [facility] [place](Occ Therapy [facility]) [facility] [place](Occ Therapy [place]) OUTPATIENT [id number] LILI MONTES 11/09 Released w/o Limitations [facility](Occ Therapy NMCP) [facility] [place] [facility](Neurosu rgery NMCP) OUTPATIENT [id number] EDUIN TORRES 11/10 Released with Work/Duty Limitations [facility](William rosurge ry NMCP) [facility] [place] [place]) OUTPATIENT [id number] Headach es since Sep 2008 DENISE BUSH 11/16 Released w/o Limitations [facility] [place] ) [facility] [place] [facility](Neurosu rgery NMCP) TELE CONSULT [id number] dr torres patient . HAN SHAH 11/16 [facility](William rosurge ry NMCP) [facility] [place] [facility](Occ Therapy NMCP) OUTPATIENT [id number] LILI MONTES 11/17 Released w/o Limitations [facility]) [facility] [place] [facility](Neurosu rgery NM[place]) TELE CONSULT [id number] pt status post brain hemmora ge now having difficu lt painful swallow ing. HAN SHAH Radha 11/21 [facility](William rosurge ry NMCP) [facility] [place] [facility](Occ Therapy NMCP) OUTPATIENT [id number] LILI MONTES 11/21 Released w/o Limitations [facility](Occ Therapy NMCP) [facility] [place] (Case Mgmt Active Duty (AD)) OUTPATIENT [id number] Case Managem ent IVANNA CORTÉS 11/23 Released w/o Limitations [facility](Dajuan e Mgmt Active Duty (AD)) [facility] [place] [facility](Occ Therapy NMCP) OUTPATIENT [id number] PAULO CORTÉS 11/23 Released w/o Limitations [facility](Occ Therapy NMCP) [facility] [place] [facility]) OUTPATIENT [id number] H/A since Sep ZAINAB SHETH 11/24 Released w/o Limitations [facility] [place] ) [facility] [place] [facility](Occ Therapy NMCP) OUTPATIENT [id number] JOHN_MEREDITH SEN 11/25 Released w/o Limitations [facility] [place] [facility](Occ Therapy NMCP) [facility] h(Case Mgmt Active Duty (AD)) OUTPATIENT [id number] Case Managem IVANNA Slade S 12/26 Released w/o Limitations [facility] [place] [facility](Dajuan e Mgmt Active Duty (AD)) [facility](Neurosu rgery NMCP) TELE CONSULT [id number] [facility] patient CHELSEA NEAL 01/19 [facility](William rosurge ry NMCP) [facility](Case Mgmt Active Duty (AD)) OUTPATIENT [id number] Case Managem ent IVANNA CORTÉS S 01/23 Released w/o Limitations [facility](Dajuan e Mgmt Active Duty (AD)) [facility](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 [employer]) OUTPATIENT [id number] 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 LATONYA MARADIAGA 02/02 Released w/o Limitations [facility](Phy s [employer] ) [facility](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 Researcher [employer] NMCP) OUTPATIENT [id number] RENEE GREENWOOD 02/16 Released w/o Limitations [facility](Phy s Ther Aquatic Team NMCP) [facility](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 Res[employer] [employer]) OUTPATIENT [id number] HARVEY KONG 02/24 Released w/o Limitations [facility] [place] [facility](Phy [facility] [employer] ) [facility](Case Mgmt Active Duty (AD)) OUTPATIENT [id number] Case Managem ent IVANNA CORTÉS S 02/24 Released w/o Limitations [facility] [place] [facility](Dajuan e Mgmt Active Duty (AD)) [facility]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 Res[facility] [employer]) OUTPATIENT [id number] NORAH JIMENEZ V 02/28 Released w/o Limitations [facility] [place] [place] [employer] ) [facility] [place] [facility](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 Res[employer]) OUTPATIENT [id number] HARVEY KONG 03/01 Released w/o Limitations [facility] [place](Phy [facility] [employer] ) [facility] [place] [facility](Case Mgmt Active Duty (AD)) OUTPATIENT [id number] Case Managem IVANNA Slade 03/03 Released w/o Limitations [facility] [place](Dajuan e Mgmt Active Duty (AD)) [facility] [place](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 Res[employer]) OUTPATIENT [id number] HARVEY KONG 03/06 Released w/o Limitations [facility] [place](Phy [facility] [employer] ) [facility] [place](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 Researcher [employer]) OUTPATIENT [id number] HARVEY KONG 03/13 Released w/o Limitations [facility] [place](Phy [facility] [employer] ) [facility] [place](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 Res[employer]cher [employer]) OUTPATIENT [id number] NORAH JIMENEZ V 03/14 Released w/o Limitations [facility] [place](Phy [facility] [employer] ) [facility] [place] [facility](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 Res[employer]cher [employer]) OUTPATIENT [id number] HARVEY KONG 03/15 Released w/o Limitations [facility] [place](Phy [facility] [employer] ) [facility] [place] [facility](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 Researcher [employer]) OUTPATIENT [id number] NORAH JIMENEZ V 03/21 Released w/o Limitations [facility] [place]hy [facility] [employer] ) [facility] [place] [facility](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 Res[employer] [employer]) OUTPATIENT [id number] HARVEY KONG 03/27 Released w/o Limitations [facility] [place] [facility](Phy [facility] [employer] ) [facility] [place](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 Res[employer] [employer]) OUTPATIENT [id number] ELVIA JEFFERS 04/12 Released w/o Limitations [facility] [place]hy [facility] [employer] ) [facility] [place](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 Res[employer]cher [employer]) OUTPATIENT [id number] ELVIA JEFFERS 04/14 Released w/o Limitations [facility] [place]hy [facility] [employer] ) [facility] [place] [facility](Case Mgmt Active Duty (AD)) OUTPATIENT [id number] Case Managem ent IVANNA CORTÉS S 04/17 Released w/o Limitations [facility](Dajuan e Mgmt Active Duty (AD)) [facility] [place](Neurosu rgery NMCP) TELE CONSULT [id number] pt has shashank boucher medical board HAN SHAH 05/22 [facility](William rosurge ry NMCP) [facility] [place](Neurosu rgery NMCP) OUTPATIENT [id number] f/u for med boards ANA HANLEY 05/24 Released w/o Limitations [facility](William rosurge ry NMCP) [facility] [place](Case Mgmt Active Duty (AD)) OUTPATIENT [id number] Case Managem ent IVANNA CORTÉS S 05/29 Released w/o Limitations [facility](Dajuan e Mgmt Active Duty (AD)) [facility] [place] [facility](Phys Exam [place] [facility]) OUTPATIENT [id number] CHRIS Bartholomew 06/01 Released w/o Limitations [facility](Phy s Exam [place]) [facility] [place] [facility](Hearing [facility] [employer]) OUTPATIENT [id number] SIDNEY DICKERSON 06/01 Released w/o Limitations [facility] [place](Hea ring Cons [place] [employer]) [facility] [place] [facility] [place]) OUTPATIENT [id number] sore throat x 4 days MEREDITH PAGE 06/16 Sick at Home/Quarter s [facility] [place] ) [facility] [place] [facility](Neurosu rgery NMCP) TELE CONSULT [id number] prabhakar fontenot. would like to discuss med board. info cnt#[id number] [id number] CHELSEA NEAL 06/23 [facility](William rosurge ry NMCP) [facility] [place](Case Mgmt Active Duty (AD)) OUTPATIENT [id number] Case Managem ent IVANNA CORTÉS S 08/01 Released w/o Limitations [facility](Dajuan e Mgmt Active Duty (AD)) [facility] [place]) OUTPATIENT [id number] RIGHT WRIST PAIN ZAINAB SHETH 08/02 Released w/o Limitations [facility](Optomet ry [place]) OUTPATIENT [id number] eye exam DOROTHY SUH NMN 08/04 Released w/o Limitations [facility](Opt ometry [place]) [facility](Immuniz ation NMCP) OUTPATIENT [id number] Adult Imms - Flumist LISA PRASAD N P 08/17 Released w/o Limitations [facility](Imm unizati on NMCP) [facility](Neurosu rgery NMCP) TELE CONSULT [id number] Dr.Cobe brown pt. Mrs. Harvey rubio of Med Boards request ing consult for pt. CHELSEA NEAL 08/28 [facility](William rosurge ry NMCP) [facility](Neurosu rgery NMCP) TELE CONSULT [id number] PEB request PT HAN SHAH Radha 09/04 [facility](William rosurge ry NMCP) [facility](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 Researcher [place]) OUTPATIENT [id number] TAMIA CARMONA 09/05 Released w/o Limitations [facility](Phy s Ther NMPS) [facility](Occ Therapy NMCP) OUTPATIENT [id number] AVM bleed PAL NIEVES 09/12 Released w/o Limitations [facility](Occ Therapy NMCP) [facility](Case Mgmt Active Duty (AD)) OUTPATIENT [id number] Case Managem ent IVANNA CORTÉS 09/21 Released w/o Limitations [facility](Dajuan e Mgmt Active Duty (AD)) [facility]) OUTPATIENT [id number] UPDATE LIMITED PROFILE FOR ZAINAB JACOME 11/01 Released w/o Limitations [facility](Immuniz ations [facility]) OUTPATIENT [id number] VACCINE S WILTON SILVA 11/15 Released w/o Limitations [facility](Imm unizati ons [facility] ) [facility](Immuniz ations [facility]) OUTPATIENT [id number] vaccine JESSICA SOSA 11/21 Released w/o Limitations [facility](Imm unizati ons [facility] ) [facility]([place] [employer]) OUTPATIENT [id number] MEDICAL ASSIGNM ENT SCREEN (STANDB Y) KERRI TREJO 11/24 Released w/o Limitations [facility](Ove rseas Screeni [place] ) [facility]) OUTPATIENT [id number] Pain in tonsils /throat , hot flashes IRENE FERGUSON 11/28 Released w/o Limitations [facility] ) [facility](Neurosu rgery NMCP) TELE CONSULT [id number] pt's CO would like to speak with Dr Hanley [phone] CHELSEA NEAL 11/30 [facility](William rosurge ry NMCP) [facility](Neurosu rgery NMCP) OUTPATIENT [id number] f/u ANA HANLEY 12/01 Released w/o Limitations [facility](William rosurge ry NMCP) [facility] [place]) OUTPATIENT [id number] R MAGAÑA PAIN ZAINAB SHETH 12/05 Released w/o Limitations [facility] ) [facility](Case Mgmt Active Duty (AD)) OUTPATIENT [id number] Case Managem ent IVANNA CORTÉS S 12/15 Released w/o Limitations [facility](Dajuan e Mgmt Active Duty (AD)) [facility](Immuniz ations [facility]) OUTPATIENT [id number] vaccine CIERA FOREMAN Alessandro 01/09 Released w/o Limitations [facility](Imm unizati ons [facility] ) [facility]) OUTPATIENT [id number] Chest Pain EMMA WHALEY EDWARD 01/17 Released w/o Limitations [facility] ) [facility]) OUTPATIENT [id number] Injured right foot during PT x 5 days AYAD JEAN 02/21 Released w/o Limitations [facility] ) [facility]) OUTPATIENT [id number] f/u xray results ZAINAB SHETH 03/06 Released w/o Limitations [facility] ) [facility](Neurosu afshin [employer]) TELE CONSULT [id number] Dr Hanley Pt . needs form stating he can fly. Pt leaving [place] on 7-6 ÁNGEL, CHELSEA L 03/26 [facility](William aniceto brown NMCP) [facility]) OUTPATIENT [id number] sore throat EMMA WHALEY EDWARD 03/28 Released w/o Limitations [facility] ) [facility]) OUTPATIENT [id number] seen yesterd ay for sorethr oat today throat is worse BRENT HARRISON 03/29 Released w/o Limitations [facility] ) [facility](Immuniz ations [facility]) OUTPATIENT [id number] vaccine JAZZ DAVIS 05/09 Released w/o Limitations [facility](Imm unizati ons [facility] ) [facility]) OUTPATIENT [id number] R FOOT EVALUAT ION ZAINAB SHETH 05/15 Released w/o Limitations [facility] [place] ) [facility](Immuniz ations [facility]) OUTPATIENT [id number] vaccine KAREEN ARMENDARIZ 05/21 Released w/o Limitations [facility](Imm unizati ons [facility] ) [facility](Phys Exam [place]) OUTPATIENT [id number] SEPARAT ION PHYSICA L 301804 CHRIS CHONG S 05/22 Released w/o Limitations [facility](Phy s Exam [place]) [facility](Neurosu rgery NMCP) TELE CONSULT [id number] Pt c/o of more frequen t paralys is, since surgery . 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, site unspeci HARI Hale 12/29 [facility] [id number] 03/16 [facility] En[facility] [id number] CHRISTINE SALDIVAR 03/18 [facility] OFFICE O/P EST LOW 20 MIN [id number] Diagnos is: ICD-10- CM Z00.00 Encntr for general adult medical exam w/o abnorma l finding s Nicanor KENNEDY L 03/18 [facility] Outpatient Encounter [id number] 04/07 [facility] Encounter [id number] 07/13 [facility] Encounter [id number] 09/09 [facility] Out[facility] Encounter [id number] CARLA DOOLEY DUNIA 03/16 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 Procedure Procedure Type Code Date Perfomer Comments Sourc e INDIVIDUAL PSYCHOTHERAPY, INSIGHT ORIENTED, BEHAVIOR MODIFYING AND/OR SUPPORTIVE, IN AN OFFICE OR OUTPATIENT FACILITY, APPROXIMATELY 20 TO 30 MINUTES [id number] WITH THE PATIENT 2006 [facility] PSYCHIATRIC DIAGNOSTIC INTERVIEW [...] DoD BUPRENORPHINE IMPLANT, 74.[address] [facility] INDIVIDUAL PSYCHOTHERAPY, INSIGHT ORIENTED, BEHAVIOR MODIFYING AND/OR SUPPORTIVE, IN AN OFFICE OR OUTPATIENT FACILITY, APPROXIMATELY 20 TO 30 MINUTES [id number] WITH THE PATIENT 2006 [facility] PSYCHOLOGICAL TSTING (INCL PSYCHODIAG ASSESSMNT, EMOTITY, INTELLECTUAL ABILITIES, PERSONALITY &PSYCHOPATHOLOGY, EG, MMPI), ADMINISTERED COMPUTER, W QUALIFIED HEALTH SWITCHING OPERATOR INTERPRET &RPT 2006 [facility] PSYCHIATRIC [...] SPECTACLES, EXCEPT FOR APHAKIA; MONOFOCAL 2008 [facility] COORDINATED CARE FEE, RISK ADJUSTED MAINTENANCE, LEVEL [address] [facility] HANDLING AND/OR CONVEYANCE OF SPECIMEN FOR TRANSFER FROM THE OFFICE TO A LABORATORY 2008 [facility] SCREENING TEST, PURE TONE, AIR ONLY 2008 DoD COORDINATED CARE FEE, RISK ADJUSTED MAINTENANCE, LEVEL [address] [facility] COORDINATED CARE FEE, RISK ADJUSTED MAINTENANCE, LEVEL [address] [facility] THERAPEUTIC PROCEDURE, 1 OR MORE AREAS, EACH 15 MINUTES; THERAPEUTIC EXERCISES TO DEVELOP STRENGTH AND ENDURANCE, RANGE OF MOTION AND FLEXIBILITY 2008 [facility] THERAPEUTIC PROCEDURE, 1 OR MORE AREAS, EACH 15 MINUTES; THERAPEUTIC EXERCISES TO DEVELOP STRENGTH AND ENDURANCE, RANGE OF MOTION AND FLEXIBILITY 2008 [facility] SELF-CARE/HOME MANAGMENT TRAIN (EG,ACT OF DAILY LIVING (ADL) &COMPENSAT TRAIN,MEAL PREPARATION,SAFETY PROCS,AND INSTRUCT IN USE OF ASST TECHNOLOGY DEV/ADPT EQUIP) DIR ONE-ON-ONE CONT,EA [address] [facility] THERAPEUTIC PROCEDURE, 1 OR MORE AREAS, EACH 15 MINUTES; THERAPEUTIC EXERCISES TO DEVELOP STRENGTH AND ENDURANCE, RANGE OF MOTION AND FLEXIBILITY 2008 [facility] SELF-CARE/HOME MANAGMENT TRAIN (EG,ACT OF DAILY LIVING (ADL) &COMPENSAT TRAIN,MEAL PREPARATION,SAFETY PROCS,AND INSTRUCT IN USE OF ASST TECHNOLOGY DEV/ADPT EQUIP) DIR ONE-ON-ONE CONT,EA [address] [facility] THERAPEUTIC PROCEDURE, 1 OR MORE AREAS, EACH 15 MINUTES; AQUATIC THERAPY WITH THERAPEUTIC EXERCISES 2008 [facility] SELF-CARE/HOME MANAGMENT TRAIN (EG,ACT OF DAILY LIVING (ADL) &COMPENSAT TRAIN,MEAL PREPARATION,SAFETY PROCS,AND INSTRUCT IN USE OF ASST TECHNOLOGY DEV/ADPT EQUIP) DIR ONE-ON-ONE CONT,EA [address] [facility] SELF-CARE/HOME MANAGMENT TRAIN [...] FUNCTIONAL PERFORMANCE), EACH [address] [facility] NEUROPSYCHOLOG TST (EG,VAL-REITAN NEUROPSYCHOLOG JEREMIAS,ANASTASIIA MEM SCALES & WISC CARD SORT TST),/HR OF PSYCHOLOGIST/PHYS TIME,BOTH [id number] ADMIN TST TO PAT & TIME INTERP [...] WISC CARD SORT TST),/HR OF PSYCHOLOGIST/PHYS TIME,BOTH [id number] ADMIN TST TO PAT & TIME INTERP [...] EG, MMPI), ADMINISTERED COMPUTER, W QUALIFIED HEALTH SWITCHING OPERATOR INTERPRET &RPT 2008 [facility] PSYCHIATRIC [...] TISSUE OF BRAIN 2007 [facility] COMPUTERIZED AXIAL TOMOGRAPHY OF HEAD 2007 [facility] ARTERIOGRAPHY OF CEREBRAL ARTERIES 2007 [facility] OTHER CRANIECTOMY 2007 [facility]D POSTOPERATIVE FOLLOW-UP [...] INTRACRANIAL ARTERIOVENOUS MALFORMATION; SUPRATENTORIAL, SIMPLE 2007 [facility] UNLISTED SPECIAL SERVICE, PROCEDURE [...] MEDICAL NUTRITION THERAPY; RE-ASSESSMENT AND INTERVENTION, INDIVIDUAL, [id number] WITH THE PATIENT, EACH 15 MINUTES 2007 [...] [facility] PHYSICAL THERAPY RE-EVALUATION 2007 [facility] POSTOPERATIVE [...] MEDICAL NUTRITION THERAPY; RE-ASSESSMENT AND INTERVENTION, INDIVIDUAL, [id number] WITH THE PATIENT, EACH [address] [facility] OCCUPATIONAL THERAPY EVALUATION 2007 [facility] THERAPEUTIC ACTIVITIES, DIRECT (ONE-ON-ONE) PATIENT CONTACT (USE OF DYNAMIC ACTIVITIES TO IMPROVE FUNCTIONAL PERFORMANCE), EACH 15 MINUTES 2007 [facility] TRACHEOSTOMY SPEAKING VALVE 2007 [facility] [...] PSYCHOPHYSICOLOGICAL MONITOR, HEALTH-ORIENT QUESTIONNAIRES), EA 15 MIN [id number] W THE PATIENT; INIT ASSESSMENT 2007 [facility] MEDICAL NUTRITION THERAPY; RE-ASSESSMENT AND INTERVENTION, INDIVIDUAL, [id number] WITH THE PATIENT, EACH [address] [facility] INSERTION OF GASTROSTOMY TUBE, PERCUTANEOUS, UNDER FLUOROSCOPIC GUIDANCE INCLUDING CONTRAST INJECTION(S), IMAGE DOCUMENTATION AND REPORT 2007 [facility] MEDICAL NUTRITION THERAPY; RE-ASSESSMENT AND INTERVENTION, INDIVIDUAL, [id number] WITH THE PATIENT, EACH [address] [facility] MEDICAL NUTRITION THERAPY; RE-ASSESSMENT AND INTERVENTION, INDIVIDUAL, [id number] WITH THE PATIENT, EACH 15 MINUTES 2007 [...] MEDICAL NUTRITION THERAPY; RE-ASSESSMENT AND INTERVENTION, INDIVIDUAL, [id number] WITH THE PATIENT, EACH [address] [facility] SKIN TEST; TUBERCULOSIS, INTRADERMAL 2006 [facility] PT A e ment Kinetic Training PT Assessment Kinetic Training [address] [facility] Training And Self-Care Skills Training And Self-Care Skills [address] [facility] Exercises A isted Exercises For ROM Exercises Assisted [place]ercises [place] ROM [address] [facility] Treatment Of Swallowing Dysfunction Treatment Of Swallowing Dysfunction [address] [facility] ENT Services Supervised Individual Speech/Hearing Therapy [address] [facility] Treatment Of Swallowing Dysfunction Treatment Of Swallowing Dysfunction [address] [facility] Tracheostomy speaking valve [address] [facility] Special ENT Services Evaluation of Speech/Hearing Problem [address] [facility] Evaluation Of Swallowing And Oral Function Evaluation Of Swallowing And Oral Function [address] [facility] Tracheostomy speaking valve [address] [facility] Health And Behav A e mt Each 15 Min Initial A e ment Health And Behav Assessmt Each 15 Min Initial Assessment [address] [facility] Medical Nutrition Therapy Re-a e ment, Intervention Medical Nutrition Therapy Re-assessment, Intervention [address] [facility] Medical Nutrition Therapy Re-a e ment, Intervention Medical Nutrition Therapy Re-assessment, Intervention [address] [facility] Medical Nutrition Therapy Re-a e ment, Intervention Medical Nutrition Therapy Re-assessment, Intervention 95622 2007 CHIDI ROBERT Immunization Admin By Intranasal / Oral Route One Vaccine Immunization Admin By Intranasal / Oral Route One Vaccine [address] [facility] Influenza Virus Vaccine Live Intranasal [address] [facility] Skin Test Anergy Tuberculin Intradermal Skin Test Anergy Tuberculin Intradermal [address] [facility] Psychiatric Therapy Individual Approximately 20-30 Minutes Psychiatric Therapy Individual Approximately 20-30 Minutes [address] [facility] Psychiatric Evaluation Comprehensive Examination Psychiatric Evaluation Comprehensive Examination 26191 2006 ALESSIA TAN Hepatitis A And Hepatitis B (Intramuscular Use) Adult Dosage Hepatitis A And Hepatitis B (Intramuscular Use) Adult Dosage 63603 2006 ROQUE WHITNEY Immunization Administration One Vaccine Immunization Administration One Vaccine 05765 2006 ROQUE WHITNEY Threshold Audiogram (Pure Tone) Threshold Audiogram (Pure Tone) 30008 2006 KOMAL SYED Audiogram (Screening) Audiogram (Screening) 81314 2006 RITCHIE YOUNG Ophthalmological New Patient Start Comprehensive Care Ophthalmological New Patient Start Comprehensive Care 61838 2006 GUSTAVO VALLE Determination Of Refractive State Determination Of Refractive State 99028 2006 GUSTAVO VALLE Exercises A isted Exercises For ROM Exercises Assisted Exercises For ROM 34418 2006 BRET VILLA PT A e ment Kinetic Training Initial 30 Minutes PT Assessment Kinetic Training Initial 30 Minutes 39476 2006 B[facility] Physical Medicine - Group Physical Therapy Se ion Physical Medicine - Group Physical Therapy Session 22498 2006 BRET VILLA Psychiatric Therapy Environmental Intervention Psychiatric Therapy Environmental Intervention [address] [facility] Psychiatric Therapy Individual Approximately 20-30 Minutes Psychiatric Therapy Individual Approximately 20-30 Minutes [address] [facility] Psychologic Testing And Report Administered By Computer Psychologic Testing And Report Administered By Computer [address] [facility] Psychiatric Evaluation Comprehensive Examination Psychiatric Evaluation Comprehensive Examination [address] [facility] Skin Test Anergy Tuberculin Intradermal Skin Test Anergy Tuberculin Intradermal [address] [facility] Skin Test Anergy Tuberculin Intradermal Skin Test Anergy Tuberculin Intradermal [address] [facility] Electrocardiogram Electrocardiogram 07327 01/[address] [facility] Skin Test Anergy Tuberculin Intradermal Skin Test Anergy Tuberculin Intradermal [address] [facility] Coordinated care fee, risk adjusted maintenance [address] [facility] Case Management, each 15 minutes [address] [facility] Influenza Virus Vaccine Pandemic Formulation Influenza Virus Vaccine Pandemic Formulation [address] [facility] Immunization Admin By Intranasal / Oral Route One Vaccine Immunization Admin By Intranasal / Oral Route One Vaccine [address] [facility] Immunization Administration Each Additional Vaccine [address] [facility] Typhoid Vaccine Vi Capsular Polysaccharide, For Intramus Use Typhoid Vaccine Vi Capsular Polysaccharide, For Intramus Use [address] [facility] Skin Test Anergy Tuberculin Intradermal Skin Test Anergy Tuberculin Intradermal [address] [facility] Coordinated care fee, risk adjusted maintenance, Level [address] [facility] Case Management, each 15 minutes [address] [facility] Occupational Therapy Evaluation Occupational Therapy Evaluation 09516 2008 [address] [facility] Physical Medicine Physical Therapy Re-Evaluation Physical Medicine Physical Therapy Re-Evaluation [address] [facility] Influenza Virus Vaccine Live Intranasal [address] [facility] Immunization Admin By Intranasal / Oral Route One Vaccine Immunization Admin By Intranasal / Oral Route One Vaccine [address] [facility] Coordinated care fee, risk adjusted maintenance, Level [address] [facility] Spectacles Services Fitting Monofocals (Not For Aphakia) Spectacles Services Fitting Monofocals (Not For Aphakia) 8[address] [facility] Determination Of Refractive State Determination Of Refractive State 36808 2008 DOROTHY SUH VTElin Resendiz Ophthalmological New Patient Start Comprehensive Care Ophthalmological New Patient Start Comprehensive Care 7[address] [facility] -Supervised Specimen Handling / Transfer: Office To Lab -Supervised Specimen Handling / Transfer: Office To Lab [address] [facility] Coordinated care fee, risk adjusted maintenance, Level [address] [facility] Case Management, each 15 minutes [address] [facility] Audiogram (Screening) Audiogram (Screening) [address] [facility] Audiometry Group Testing Audiometry Group Testing [address] [facility] Coordinated care fee, risk adjusted maintenance, Level [address] [facility] Case Management, each 15 minutes [address] [facility] Physical Therapy: ___ Se ion Segments, 15 Minutes Each Physical Therapy: ___ Session Segments, 15 Minutes Each 62809 2008 ELVIA JEFFERS x [address] [facility] Physical Therapy: ___ Se ion Segments, 15 Minutes Each Physical Therapy: ___ Session Segments, 15 Minutes Each 34286 2008 ELVIA JEFFERS x [address] [facility] Phys Therapy Education Self Care Training - Per 15 Minutes Phys Therapy Education Self Care Training - Per 15 Minutes [address] [facility] Physical Therapy: ___ Se ion Segments, 15 Minutes Each Physical Therapy: ___ Session Segments, 15 Minutes Each 97941 2008 NORAH JIMENEZ Aquatic Exercises Aquatic Exercises 66175 03/15 NORAH JIMENEZ Phys Therapy Education Self Care Training - Per 15 Minutes Phys Therapy Education Self Care Training - Per 15 Minutes [address] [facility] Phys Therapy Education Self Care Training - Per 15 Minutes Phys Therapy Education Self Care Training - Per 15 Minutes 97384 2008 HARVEY KONG Phys Therapy Education Self Care Training - Per 15 Minutes Phys Therapy Education Self Care Training - Per 15 Minutes [address] [facility] Coordinated [...] Self Care Training - Per 15 Minutes 40813 2008 HARVEY KONG Aquatic Exercises Aquatic Exercises 68338 02/[address] [facility] Phys Therapy Education Self Care Training - Per 15 Minutes Phys Therapy Education Self Care Training - Per 15 Minutes 98547 2008 HARVEY KONG Aquatic Exercises Aquatic Exercises 35794 02/[address] [facility] Physical Medicine Physical Therapy Evaluation Physical Medicine Physical Therapy Evaluation [address] [facility] Coordinated care fee, risk adjusted maintenance, Level 4 2008 LONG, IVANNA S DoD Case Management, each 15 minutes 2008 LONG, IVANNA S DoD Coordinated care fee, risk adjusted maintenance, Level 4 2008 LONG, IVANNA S DoD Case Management, each 15 minutes 2008 LONG, IVANNA S DoD Occupational Therapy Re-Evaluation Occupational Therapy Re-Evaluation 25525 2008 DELETE_[email or web address] STAFFORD [facility] PT A e ment Kinetic Training PT Assessment Kinetic Training 53316 2008 PAULO CORTÉS DoD Coordinated care fee, risk adjusted maintenance, Level 3 2008 LONG, IVANNA S DoD Case Management, each 15 minutes 2008 LONG, IVANNA S DoD PT A e ment Kinetic Training PT Assessment Kinetic Training [address] [facility] PT A e ment Kinetic Training PT Assessment Kinetic Training 05441 2008 LILI MONTES PT A e ment Kinetic Training PT Assessment Kinetic Training 80864 2008 LILI MONTES Psychometric Neuropsych Testing Battery Admin By Physician Psychometric Neuropsych Testing Battery Admin By Physician 57973 2008 MONICA WATSON PT A e ment Kinetic Training PT Assessment Kinetic Training 22841 2008 PAULO CORTÉS PT A e ment Kinetic Training PT Assessment Kinetic Training 64906 2008 PAULO CORTÉS PT A e ment Kinetic Training PT Assessment Kinetic Training 35248 2008 PAULO CORTÉS Psychometric Neuropsych Testing Battery Admin By Physician Psychometric Neuropsych Testing Battery Admin By Physician 12429 2008 JATINDER GARCIA Psychometric Neuropsych Testing Battery Admin By [employer] Psychometric Neuropsych Testing Battery Admin By [employer] Math Teacher 80469 2008 JATINDER GARCIA Exercises A isted Exercises For ROM Exercises Assisted Exercises For ROM 28844 2008 JOHN_MEREDITH MISHRA Training And Self-Care Skills Training And Self-Care Skills 64612 2008 MEREDITH LOMELI Occupational Therapy Evaluation Occupational Therapy Evaluation 65685 2008 MEREDITH LOMELI Coordinated care fee, risk adjusted maintenance, Level 3 [address] [facility] Case Management, each 15 minutes 2008 IVANNA CORTÉS S Martín Psychologic Testing And Report Administered By Computer Psychologic Testing And Report Administered By Computer 61280 2008 JATINDER GARCIA Psychometric Neuropsych Testing Battery Admin By [employer] Psychometric Neuropsych Testing Battery Admin By [employer] Math Teacher [address] [facility] Psychiatric Evaluation Comprehensive Examination Psychiatric Evaluation Comprehensive Examination [address] [facility] Screening Test Of Visual Acuity, Quantitative, Bilateral Screening Test Of Visual Acuity, Quantitative, Bilateral 08849 [address] [facility] Coordinated care fee, risk adjusted maintenance, Level 3 2007 LONGLYDIAA S DoD Case Management, each 15 minutes [address] [facility] Audiometry Group Testing Audiometry Group Testing [address] [facility] Immunization Admin By Intranasal / Oral Route One Vaccine Immunization Admin By Intranasal / Oral Route One Vaccine [address] [facility] Influenza Virus Vaccine Live Intranasal [address] [facility] Skin Test Anergy Tuberculin Intradermal Skin Test Anergy Tuberculin Intradermal [address] [facility] Venipuncture Venipuncture [address]Supervised Specimen Handling / Transfer: Office To Lab -Supervised Specimen Handling / Transfer: Office To Lab [address]Supervised Specimen Handling / Transfer: Office To Lab -Supervised Specimen Handling / Transfer: Office To Lab [address] [facility] Case Management, each 15 minutes 2007 LONG, IVANNA S [facility] Case Management, each 15 minutes 2007 LONG, IVANNA S [facility] Case Management, each 15 minutes 2007 LONG, IVANNA S [facility] Coordinated care fee, risk adjusted maintenance 2007 LONG, IVANNA S [facility] [...] Of Swallowing Dysfunction Treatment Of Swallowing Dysfunction [address] [facility] Physical Therapy Neuromuscular Re-education Physical Therapy Neuromuscular Re-education [address] [facility] Treatment Of Swallowing Dysfunction Treatment Of Swallowing Dysfunction [address] [facility] Training And Self-Care Skills Training And Self-Care Skills [address] [facility] Medical Nutrition Therapy Re-a e ment, Intervention Medical Nutrition Therapy Re-assessment, Intervention 84086 [address] [facility] Training And Self-Care Skills Training And Self-Care Skills [address] [facility] Physical Therapy Neuromuscular Re-education Physical Therapy Neuromuscular Re-education [address] 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 Social History Type Response Date Comment Sour e Tobacco smoking status NHIS VA-TOBACCO NEVER USED OTHER TYPE 03/29/2025 [facility] History of tobacco use VA-TOBACCO USE EVERY DAY CIGARETTES 03/29/2025 [facility] History of tobacco use PA-TOBACCO FORMER USER 03/18/2024 [facility] History of tobacco use VA-TOBACCO USER EVERY DAY 03/18/2023 [facility] of [facility] 11/06/2022 [facility] History of tobacco use ORYX ADMIT TOBACCO SCREEN YES 11/06/2022 [facility] History of tobacco use LIFETIME NON-USER OF TOBACCO 01/17/2011 [facility] History of tobacco use LIFETIME NON-USER OF TOBACCO 03/04/2008 [facility] This section is an empty social history section. [facility] Plan of Care List of future care activities from Department of 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 Additional future care activities may be listed in the Assessment and Plan section. Date/Time Care Activity Care Activity Detail Facili ty 07/01/2025 AMBULATORY - MEDICINE AMBULATORY - MEDICI NE [facility]
[2025-05-14] MEDS: KETOROLAC 30 MG/ML VIAL (*BKC) IM (11:58)
[2025-05-14 12:16] LABS: Influenza A QL RT-PCR Negative (Negative); Influenza B QL RT-PCR Negative (Negative); RSV RNA, RT-PCR Negative (Negative); SARS-CoV-2 RNA PCR Negative (Negative)
[2025-05-14 12:43] VITALS: BP 126/75; PULSE 83; RESP 18; TEMP 36.6; O2SAT 96
[2025-05-14 12:49] VITALS: BP 126/75; PULSE 83; RESP 18; TEMP 36.6; O2SAT 96
== END 2025-05-14 12:49 | disposition home or self-care (01) ==
PROVIDERS: Emergency Provider Family Medicine; PCP Family Medicine
DX: K04.7 Periapical abscess without sinus (principal); Z86.73 Personal history of transient ischemic attack (TIA), and cerebral infarction without residual deficits; Z20.822 Contact with and (suspected) exposure to COVID-19
CPT/HCPCS: 87637; 99283; A9270; J1885

== ENCOUNTER 2025-05-15 17:11 | Emergency (ER) | payer OTHER, SELFPAY ==
[2025-05-15 17:13] VITALS: BP 150/86; PULSE 84; RESP 20; TEMP 36.6; O2SAT 97
--- OUTSIDE RECORDS SUMMARY | 2025-05-15 17:15 | XMS_ITS | Patient Health Record ---
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
--- OUTSIDE RECORDS SUMMARY | 2025-05-15 17:15 | XMS_ITS | Continuity of Care Document ---
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 It does not include entries that were removed or entered in error. Problem Status Onset Date Problem Type Date of Resolution Comments Source Adjustment disorder with depressed mood (SNOMED CT 89574287) Active Condition [facility] Cerebral aneurysm, nonruptured (ICD-9-CM 437.3) Active Condition [facility] Congenital arteriovenous malformation Active Condition Jan 17, 2011 Entered By: CHIOMA QUAN Comment: 12/[address] [facility] Diplopia * (ICD-9-CM 368.2) Active Condition [facility] Myopia Active Condition [facility] Pain of joint of knee (SNOMED CT 0401554179) Active Condition [facility] Pneumonia, organism unspecified Active Condition Jan 17, 2011 Entered By: CHIOMA QUAN Comment: August 2010, received pneumovax vaccineMar 08, 2011 Entered By: CHIOMA QUAN Comment: 02/20/11 rul and rml [facility] Active Condition [facility] Tinnitus Active Condition [facility] Vitamin D Deficiency (SCT 24214750) Active Condition [facility] Chest Pain * (ICD-9-CM 786.50) Inactive Condition 03/18/2023 [facility] Cyst, ganglion Inactive Condition 03/18/2023 Jan 17, 2011 Entered By: CHIOMA QUAN Comment: right wrist [facility] Encounters for unspecified Administrative Purpose (ICD-9-CM V68.9) Inactive Condition 03/18/2023 [facility] NEUTROPENIA, unspecified Inactive Condition 03/18/2023 [facility] Vitamin D Deficiency Inactive Condition 03/18/2023 [facility] visit for: services physical separation Active [...] DoD visit for: administrative purpose Inactive Condition [facility] Patient Counseling: Active Condition Do D [...] Condition DoD difficulty swallowing (dysphagia) Active Condition [facility] Patient Counseling: Inquiry & Counseling Active Condition DoD INTRACEREBRAL HEMORRHAGE Active Condition DoD BACTEREMIA Active Condition DoD ARTERIOVENOUS MALFORMATION (USABILITY STRATEGIST) Active Condition [facility] Dietary Counseling Pertaining To Specific Condition Inactive Condition [facility] visit for: screening exam pulmonary tuberculosis [...] ICD-10-CM G47.30 Sleep apnea, unspecified Active Diagnosis [facility] Diagnosis: ICD-10-CM 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 TRANSD ERMAL ACTIVE 03/30/2026 [id number] AARON KENNEDY 2024 28 [facility] NICOTINE POLACRILEX 2MG MINI LOZENGE DISSOLVE 1 LOZENGE BY MOUTH EVERY 4 HOURS NEEDED .DO NOT SMOKE WHILE USING THIS MEDICATI ON. ORAL ACTIVE 03/30/2026 [id number] 5 AARON KENNEDY 2024 162 [facility] Allergies, Adverse Reactions, Alerts Combined list of allergies 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 It does not include entries that were removed or entered in error. Substance Category Reaction Severity Reaction type Status Date Reported Comments Source ADHESIVE TAPE Propensity to adverse reaction (finding) Eruption active 1 [facility] OTHER Drug allergy (disorder) Unknown active 8 [facility] Immunizations Combined list of available immunizations from the 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 Immunization Series Date Given Administered By Site Reaction Lot Number CVX Code Drug Marina Manager Status Comments Source PNEUMOCOCCAL POLYSACCHARID E PPV23 2022 BRIEN PIERCE H R RIGHT DELTO ID [id number] 33 complet ed [facility] AT [facility] TDAP 2022 [facility]EN [facility] H R LEFT DELTO ID [id number] 115 complet ed [facility]MIN[facility] AT [facility] TDAP 5 2017 115 complet ed HISTORICA L INFORMATI ON - FROM OTHER [facility] INFLUENZA, UNSPECIFIED FORMULATION 2011 88 complet ed [facility] INFLUENZA, UNSPECIFIED FORMULATION 2010 88 complet ed [facility] tuberculin skin test; purified protein derivative solution, intradermal 0 2009 KAREEN ARMENDARIZ [id number] [place] 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 tuberculi n skin test; purified protein derivativ e solution, intraderm al DoD tuberculin skin test; purified protein derivative solution, intradermal 1 2009 JAZZ DAVIS [id number] 96 [facility] complet ed tuberculi n skin test; purified protein derivativ e solution, intraderm al DoD tuberculin skin test; purified protein derivative solution, intradermal 1 2009 CIERA FOREMAN [id number] 96 [facility] ([facility] complet ed tuberculi n skin test; purified protein derivativ e solution, intraderm al DoD tuberculin skin test; purified protein derivative solution, intradermal 1 2009 WILTON SILVA [id number] 96 [facility] PASTEUR ([facility]) complet ed tuberculi n skin test; purified protein derivativ e solution, intraderm al DoD typhoid Vi capsular polysaccharid e vaccine 1 2009 WILTON SILVA [id number] [facility] ([facility] complet ed typhoid Vi capsular polysacch aride vaccine DoD Novel Influenza-H1N 1-09, live virus for nasal administratio n 1 2009 WILTON SILVA [id number] [employer] (MED) complet ed Novel Influenza -[id number], live virus for nasal administr ation DoD influenza virus vaccine, live, attenuated, for intranasal use 0 2008 UNK 111 Unknown (UNK) comple t ed influenza virus vaccine, live, attenuate d, for intranasa l use DoD influenza virus vaccine, live, attenuated, for intranasal use 1 2008 SERA PRASAD [id number] 111 [employer] (MED) complet ed influenza virus vaccine, live, attenuate d, for intranasa l use DoD tuberculin skin test; purified protein derivative solution, intradermal 1 2007 KAREEN ARMENDARIZ [id number] 96 [employer] () complet ed tuberculi n skin test; purified protein derivativ e solution, intraderm al DoD influenza virus vaccine, live, attenuated, for intranasal use 1 2007 KAREEN ARMENDARIZ [id number] 111 [employer] (MED) complet ed influenza virus vaccine, live, attenuate d, for intranasa l use DoD influenza virus vaccine, unspecified formulation 0 2006 UNK 88 Unknown (UNK) comple t ed influenza virus vaccine, unspecifi ed formulati on DoD tuberculin skin test; purified protein derivative solution, intradermal 1 2006 JAZZ DAVIS [id number] [facility] (PD) complet ed tuberculi n skin test; purified protein derivativ e solution, intraderm al DoD influenza virus vaccine, live, attenuated, for intranasal use 1 2006 PASQUALE SINHA [id number] 111 [employer] (MED) complet ed influenza virus vaccine, live, attenuate d, for intranasa l use DoD hepatitis B vaccine, adult dosage 3 2006 UNK 43 Unknown (UNK) comple t ed hepatitis B vaccine, adult dosage DoD hepatitis A and hepatitis B vaccine 3 2006 ROQUE WHITNEY [id number] [facility] ([facility]) complet ed hepatitis A [...] L INFORMATI ON - FROM OTHER REGISTRY, [facility] HEP B, ADOLESCENT OR PEDIATRIC 2 1997 08 complet ed HISTORICA L INFORMATI ON - FROM OTHER REGISTRY, [facility] HEP B, ADOLESCENT OR PEDIATRIC 1 1997 08 complet ed HISTORICA L INFORMATI ON - FROM OTHER REGISTRY, [facility] DTP 4 1991 01 complet ed HISTORICA L INFORMATI ON - [facility], [facility]NSPECIF[facility] FORMUL[facility] 1 1991 17 complet ed HISTORICA L INFORMATI ON - FROM OTHER REGISTRY, [facility] MMR 2 1991 03 complet ed HISTORICA L INFORMATI ON - FROM OTHER REGISTRY, [facility] OPV, TRIVALENT 4 1991 02 complet ed HISTORICA L INFORMATI ON - FROM OTHER REGISTRY, [facility] DTP 3 1989 complet ed HISTORICA L INFORMATI ON - FROM OTHER REGISTRY, [facility] OPV, TRIVALENT 3 1989 02 complet ed HISTORICA L INFORMATI ON - FROM OTHER REGISTRY, [facility] MMR 1 1988 03 complet ed HISTORICA L INFORMATI ON - FROM OTHER REGISTRY, [facility] DTP 3 1987 complet ed HISTORICA L INFORMATI ON - FROM OTHER REGISTRY, [facility] OPV, TRIVALENT 3 1987 02 complet ed HISTORICA L INFORMATI ON - FROM OTHER REGISTRY, [facility] DTP 2 1987 complet ed HISTORICA L INFORMATI ON - FROM OTHER REGISTRY, [facility] OPV, TRIVALENT 2 1987 complet ed HISTORICA L INFORMATI ON - FROM OTHER REGISTRY, [facility] DTP 1 1987 complet ed HISTORICA L INFORMATI ON - FROM OTHER REGISTRY, [facility] OPV, TRIVALENT 1 1987 complet ed HISTORICA L INFORMATI ON - FROM OTHER REGISTRY, [facility] N Results Combined list of recent [...] Mar 29, 2025 08:53 AM Reporting Lab: [place] [id number] Performing Lab: [address] [facility] TSH W/ REFLEX FT4 (STL) THYROTROPIN [UNITS/VOLUM E] IN SERUM OR PLASMA 1.606 u[IU]/ mL 0.47 - 5 03/29 Specimen Type: PLASMA No comment entered. Ordering Provider: Nicanor KENNEDY Report Released Date/Time: Mar 29, 2025 08:53 AM Reporting Lab: [address] [address] Performing Lab: [address] [phone] [place] [address] [facility] CBC LEUKOCYTES [#/VOLUME] IN BLOOD BY AUTOMATED COUNT 5.4 10*3/u L 3.6 - 11.2 03/29 Specimen Type: BLOOD No comment entered. Ordering Provider: Nicanor KENNEDY Report Released Date/Time: Mar 29, 2025 08:53 AM Reporting Lab: [place] [address] Performing Lab: [address] [address] [facility] CBC ERYTHROCYTES [#/VOLUME] IN BLOOD BY AUTOMATED COUNT 4.83 10*6/u L 4.10 - 5.70 03/29 Specimen Type: BLOOD No comment entered. Ordering Provider: Nicanor KENNEDY Report Released Date/Time: Mar 29, 2025 08:53 AM Reporting Lab: [address] [address] Performing Lab: [address] [address] [facility] CBC HEMOGLOBIN [MASS/VOLUME ] IN BLOOD 14.9 g/dL 13.1 - 16.8 03/29 Specimen Type: BLOOD No comment entered. Ordering Provider: Nicanor KENNEDY Report Released Date/Time: Mar 29, 2025 08:53 AM Reporting Lab: [address] [address] Performing Lab: [address] [phone] [place] [address] [facility] CBC HEMATOCRIT [VOLUME FRACTION] OF BLOOD 44.7 38.2 - 48.4 03/29 Specimen Type: BLOOD No comment entered. Ordering Provider: Nicanor KENNEDY Report Released Date/Time: Mar 29, 2025 08:53 AM Reporting Lab: [address] [address] Performing Lab: [address] [address] [facility] CBC MCV [ENTITIC VOLUME] BY AUTOMATED COUNT 92.5 fL 80.0 - 100.0 03/29 Specimen Type: BLOOD No comment entered. Ordering Provider: Nicanor KENNEDY Report Released Date/Time: Mar 29, 2025 08:53 AM Reporting Lab: [address] [address] Performing Lab: [phone] [facility] CBC MCH [ENTITIC MASS] BY AUTOMATED COUNT 30.8 pg 27.0 - 34.0 03/29 Specimen Type: BLOOD No comment entered. Ordering Provider: Nicanor KENNEDY Report Released Date/Time: Mar 29, 2025 08:53 AM Reporting Lab: [address] [address] Performing Lab: [place] [phone] [facility] CBC MCHC [MASS/VOLUME ] BY AUTOMATED COUNT 33.3 g/dL 33.0 - 36.0 03/29 Specimen Type: BLOOD No comment entered. Ordering Provider: Nicanor KENNEDY Report Released Date/Time: Mar 29, 2025 08:53 AM Reporting Lab: [place] [phone] Performing Lab: [place] [phone] [facility] CBC PLATELETS [#/VOLUME] IN BLOOD BY AUTOMATED COUNT 223 10*3/u L 150 - 400 03/29 Specimen Type: BLOOD No comment entered. Ordering Provider: Nicanor KENNEDY Report Released Date/Time: Mar 29, 2025 08:53 AM Reporting Lab: [address] [address] Performing Lab: [place] [phone] [place] [address] [facility] CBC PLATELET MEAN VOLUME [ENTITIC VOLUME] IN BLOOD BY AUTOMATED COUNT 10.6 fL 7.5 - 11.2 03/29 Specimen Type: BLOOD No comment entered. Ordering Provider: Nicanor KENNEDY Report Released Date/Time: Mar 29, 2025 08:53 AM Reporting Lab: [place] [phone] Performing Lab: [place] [phone] [place] [address] [facility] CBC ERYTHROCYTE DISTRIBUTION WIDTH [RATIO] BY AUTOMATED COUNT 12.0 11.8 - 15.1 03/29 Specimen Type: BLOOD No comment entered. Ordering Provider: Nicanor KENNEDY Report Released Date/Time: Mar 29, 2025 08:53 AM Reporting Lab: [facility] [address] [facility] [address] Performing Lab: [facility] [address] [place] [phone] [facility] CBC LYMPHOCYTES/ 100 LEUKOCYTES IN BLOOD BY AUTOMATED COUNT 37 03/29 Specimen Type: BLOOD No comment entered. Ordering Provider: Nicanor KENNEDY Report Released Date/Time: Mar 29, 2025 08:53 AM Reporting Lab: [facility] [address] [facility] [address] Performing Lab: [facility] [address] [place] [phone] [facility] CBC MONOCYTES/10 0 LEUKOCYTES IN BLOOD BY AUTOMATED COUNT 10 03/29 Specimen Type: BLOOD No comment entered. Ordering Provider: Nicanor KENNEDY Report Released Date/Time: Mar 29, 2025 08:53 AM Reporting Lab: [facility] [address] [facility] [address] Performing Lab: [facility] [address] [place] [phone] [facility] CBC NEUTROPHILS/ 100 LEUKOCYTES IN BLOOD BY AUTOMATED COUNT 48 03/29 Specimen Type: BLOOD No comment entered. Ordering Provider: Nicanor KENNEDY Report Released Date/Time: Mar 29, 2025 08:53 AM Reporting Lab: [facility] [address] [facility] [address] Performing Lab: [facility] [address] [place] [phone] [facility] CBC EOSINOPHILS/ 100 LEUKOCYTES IN BLOOD BY AUTOMATED COUNT 4 03/29 Specimen Type: BLOOD No comment entered. Ordering Provider: Nicanor KENNEDY Report Released Date/Time: Mar 29, 2025 08:53 AM Reporting Lab: [facility] [address] [place] [phone] Performing Lab: [address] [address] [facility] CBC BASOPHILS/10 0 LEUKOCYTES IN BLOOD BY AUTOMATED COUNT 1 03/29 Specimen Type: BLOOD No comment entered. Ordering Provider: Nicanor KENNEDY Report Released Date/Time: Mar 29, 2025 08:53 AM Reporting Lab: [address] [address] Performing Lab: [address] [address] [facility] CBC LYMPHOCYTES [#/VOLUME] IN BLOOD BY AUTOMATED COUNT 1.99 10*3/u L 0.77 - 4.50 03/29 Specimen Type: BLOOD No comment entered. Ordering Provider: Nicanor KENNEDY Report Released Date/Time: Mar 29, 2025 08:53 AM Reporting Lab: [address] [address] Performing Lab: [address] [address] [facility] CBC MONOCYTES [#/VOLUME] IN BLOOD BY AUTOMATED COUNT 0.52 10*3/u L 0.19 - 0.80 03/29 Specimen Type: BLOOD No comment entered. Ordering Provider: Nicanor KENNEDY Report Released Date/Time: Mar 29, 2025 08:53 AM Reporting Lab: [address] [address] Performing Lab: [address] [address] [facility] CBC NEUTROPHILS [#/VOLUME] IN BLOOD BY AUTOMATED COUNT 2.62 10*3/u L 2.10 - 8.00 03/29 Specimen Type: BLOOD No comment entered. Ordering Provider: Nicanor KENNEDY Report Released Date/Time: Mar 29, 2025 08:53 AM Reporting Lab: [address] [address] Performing Lab: [facility] [address] [facility] [address] [facility] CBC EOSINOPHILS [#/VOLUME] IN BLOOD BY AUTOMATED COUNT 0.23 10*3/u L 0.00 - 0.60 03/29 Specimen Type: BLOOD No comment entered. Ordering Provider: Nicanor KENNEDY Report Released Date/Time: Mar 29, 2025 08:53 AM Reporting Lab: [address] [address] Performing Lab: [address] [address] [facility] CBC BASOPHILS [#/VOLUME] IN BLOOD BY AUTOMATED COUNT 0.07 10*3/u L 0.00 - 0.20 03/29 Specimen Type: BLOOD No comment entered. Ordering Provider: Nicanor KENNEDY Report Released Date/Time: Mar 29, 2025 08:53 AM Reporting Lab: [address] [phone] Performing Lab: [address] [phone] [place] [address] [facility] VITAMIN D, 25-HYDROXY 25-HYDROXYVI TAMIN D3 [MASS/VOLUME ] IN SERUM OR PLASMA 37.6 ng/mL 30 - 96 03/29 Specimen Type: SERUM No comment entered. Ordering Provider: Nicanor KENNEDY Report Released Date/Time: Mar 29, 2025 08:53 AM Reporting Lab: [address] [address] Performing Lab: [address] [address] [facility] LIPID PANEL (STL) CHOLESTEROL [MASS/VOLUME ] IN SERUM OR PLASMA 199 mg/dL 0 - 200 03/29 Specimen Type: PLASMA Comment: No hemolysis noted. Ordering Provider: Nicanor KENNEDY Report Released Date/Time: Mar 29, 2025 08:53 AM Reporting Lab: [place] [phone] Performing Lab: [facility] [address] [facility] [address] [facility] LIPID PANEL (STL) TRIGLYCERIDE [MASS/VOLUME ] IN SERUM OR PLASMA 196 mg/dL 0 - 150 03/29 H Specimen Type: PLASMA Comment: No hemolysis noted. Ordering Provider: Nicanor KENNEDY Report Released Date/Time: Mar 29, 2025 08:53 AM Reporting Lab: [facility] [address] [facility] [address] Performing Lab: [place] [address] [facility] [address] [facility] LIPID PANEL (STL) CHOLESTEROL IN LDL [MASS/VOLUME ] IN SERUM OR PLASMA BY CALCULATION 119 mg/dL 03/29 Specimen Type: PLASMA Comment: No hemolysis noted. Ordering Provider: Nicanor KENNEDY Report Released Date/Time: Mar 29, 2025 08:53 AM Reporting Lab: [facility] [address] [facility] [address] Performing Lab: [place] [address] [facility] [address] [facility] LIPID PANEL (STL) CHOLESTEROL IN HDL [MASS/VOLUME ] IN SERUM OR PLASMA 41 mg/dL 40 03/29 Specimen Type: PLASMA Comment: No hemolysis noted. Ordering Provider: Nicanor KENNEDY Report Released Date/Time: Mar 29, 2025 08:53 AM Reporting Lab: [facility] [address] [facility] [address] Performing Lab: [place] [address] [facility] [address] [facility] COMPREHENSI VE METABOLIC PANEL CREATININE [MASS/VOLUME ] IN SERUM OR PLASMA 0.94 mg/dL 0.7 - 1.3 03/29 Specimen Type: PLASMA Comment: No hemolysis noted. Ordering Provider: Nicanor KENNEDY Report Released Date/Time: Mar 29, 2025 08:53 AM Reporting Lab: [facility] [address] [facility] [address] Performing Lab: [facility] [address] [facility] [address] [facility] COMPREHENSI VE METABOLIC PANEL UREA NITROGEN [MASS/VOLUME ] IN SERUM OR PLASMA 16.7 mg/dL 9.0 - 25.0 03/29 Specimen Type: PLASMA Comment: No hemolysis noted. Ordering Provider: Nicanor KENNEDY Report Released Date/Time: Mar 29, 2025 08:53 AM Reporting Lab: [facility] [address] [facility] [address] Performing Lab: [place] [address] [facility] [address] [facility] COMPREHENSI VE METABOLIC PANEL GLUCOSE [MASS/VOLUME ] IN SERUM OR PLASMA 97 mg/dL 72 - 99 03/29 Specimen Type: PLASMA Comment: No hemolysis noted. Ordering Provider: Nicanor KENNEDY Report Released Date/Time: Mar 29, 2025 08:53 AM Reporting Lab: [facility] [address] [facility] [address] Performing Lab: [place] [address] [facility] [address] [facility] COMPREHENSI VE METABOLIC PANEL SODIUM [MOLES/VOLUM E] IN SERUM OR PLASMA 139 meq/L 136 - 145 03/29 Specimen Type: PLASMA Comment: No hemolysis noted. Ordering Provider: Nicanor KENNEDY Report Released Date/Time: Mar 29, 2025 08:53 AM Reporting Lab: [facility] [address] [facility] [address] Performing Lab: [place] [address] [facility] [address] [facility] COMPREHENSI VE METABOLIC PANEL POTASSIUM [MOLES/VOLUM E] IN SERUM OR PLASMA 4.0 meq/L 3.5 - 5 03/29 Specimen Type: PLASMA Comment: No hemolysis noted. Ordering Provider: Nicanor KENNEDY Report Released Date/Time: Mar 29, 2025 08:53 AM Reporting Lab: [facility] [address] [facility] [address] Performing Lab: [facility] [address] [place] [phone] [facility] COMPREHENSI VE METABOLIC PANEL CHLORIDE [MOLES/VOLUM E] IN SERUM OR PLASMA 106 meq/L 98 - 107 03/29 Specimen Type: PLASMA Comment: No hemolysis noted. Ordering Provider: Nicanor KENNEDY Report Released Date/Time: Mar 29, 2025 08:53 AM Reporting Lab: [address] [address] Performing Lab: [address] [phone] [facility] COMPREHENSI VE METABOLIC PANEL CARBON DIOXIDE, TOTAL [MOLES/VOLUM E] IN SERUM OR PLASMA 24 meq/L 22 - 31 03/29 Specimen Type: PLASMA Comment: No hemolysis noted. Ordering Provider: Nicanor KENNEDY Report Released Date/Time: Mar 29, 2025 08:53 AM Reporting Lab: [address] [address] Performing Lab: [address] [address] [facility] COMPREHENSI VE METABOLIC PANEL CALCIUM [MASS/VOLUME ] IN SERUM OR PLASMA 9.1 mg/dL 8.4 - 10.4 03/29 Specimen Type: PLASMA Comment: No hemolysis noted. Ordering Provider: Nicanor KENNEDY Report Released Date/Time: Mar 29, 2025 08:53 AM Reporting Lab: [address] [address] Performing Lab: [address] [address] [facility] COMPREHENSI VE METABOLIC PANEL PROTEIN [MASS/VOLUME ] IN SERUM OR PLASMA 7.2 g/dL 6 - 8.6 03/29 Specimen Type: PLASMA Comment: No hemolysis noted. Ordering Provider: Nicanor KENNEDY Report Released Date/Time: Mar 29, 2025 08:53 AM Reporting Lab: [facility] [address] [facility] [address] Performing Lab: [facility] [address] [place] [phone] [facility] COMPREHENSI VE METABOLIC PANEL ALBUMIN [MASS/VOLUME ] IN SERUM OR PLASMA 4.5 g/dL 3.4 - 5 03/29 Specimen Type: PLASMA Comment: No hemolysis noted. Ordering Provider: Nicanor KENNEDY Report Released Date/Time: Mar 29, 2025 08:53 AM Reporting Lab: [facility] [address] [place] [phone] Performing Lab: [place] [phone] [facility] COMPREHENSI VE METABOLIC PANEL BILIRUBIN.TO ANTONI [MASS/VOLUME ] IN SERUM OR PLASMA 0.3 mg/dL 0.2 - 1.2 03/29 Specimen Type: PLASMA Comment: No hemolysis noted. Ordering Provider: Nicanor KENNEDY Report Released Date/Time: Mar 29, 2025 08:53 AM Reporting Lab: [facility] [address] [place] [address] Performing Lab: [facility] [address] [place] [phone] [facility] COMPREHENSI VE METABOLIC PANEL ALKALINE PHOSPHATASE [ENZYMATIC ACTIVITY/VOL UME] IN SERUM OR PLASMA 83 U/L 40 - 150 03/29 Specimen Type: PLASMA Comment: No hemolysis noted. Ordering Provider: Nicanor KENNEDY Report Released Date/Time: Mar 29, 2025 08:53 AM Reporting Lab: [facility] [address] [place] [phone] Performing Lab: [facility] [address] [place] [phone] [facility] COMPREHENSI VE METABOLIC PANEL ASPARTATE AMINOTRANSFE RASE [ENZYMATIC ACTIVITY/VOL UME] IN SERUM OR PLASMA 31 U/L 5 - 34 03/29 Specimen Type: PLASMA Comment: No hemolysis noted. Ordering Provider: Nicanor KENNEDY Report Released Date/Time: Mar 29, 2025 08:53 AM Reporting Lab: [address] [address] [address] Performing Lab: [address] [address] [facility] COMPREHENSI VE METABOLIC PANEL ALANINE AMINOTRANSFE RASE [ENZYMATIC ACTIVITY/VOL UME] IN SERUM OR PLASMA 26 U/L 8 - 40 03/29 Specimen Type: PLASMA Comment: No hemolysis noted. Ordering Provider: Nicanor KENNEDY Report Released Date/Time: Mar 29, 2025 08:53 AM Reporting Lab: [address] [address] Performing Lab: [place] [id number] [place] [address] [facility]OC COMPREHENSI VE METABOLIC PANEL GLOMERULAR FILTRATION RATE/1.73 SQ M.PREDICTED [VOLUME RATE/AREA] IN SERUM, PLASMA OR BLOOD BY CREATININE-B ASED FORMULA (CKD-EPI 2020) 107.1 60 03/29 Specimen Type: PLASMA Comment: No hemolysis noted. Ordering Provider: Nicanor KENNEDY Report Released Date/Time: Mar 29, 2025 08:53 AM Reporting Lab: [facility] [address] [place] [phone] Performing Lab: [address] [phone] [place] [address] [facility]OC LIPID PANEL (STL) CHOLESTEROL [MASS/VOLUME ] IN SERUM OR PLASMA 209 mg/dL 0 - 200 03/18 H Specimen Type: PLASMA Comment: No hemolysis noted. Ordering Provider: Nicanor KENNEDY Report Released Date/Time: Mar 18, 2024 10:55 AM Reporting Lab: [address] [address] Performing Lab: [address] [address] [facility] LIPID PANEL (STL) TRIGLYCERIDE [MASS/VOLUME ] IN SERUM OR PLASMA 247 mg/dL 0 - 150 03/18 H Specimen Type: PLASMA Comment: No hemolysis noted. Ordering Provider: Nicanor KENNEDY Report Released Date/Time: Mar 18, 2024 10:55 AM Reporting Lab: [facility] [address] [place] [phone] Performing Lab: [facility] [address] [place] [phone] [facility] LIPID PANEL (STL) CHOLESTEROL IN LDL [MASS/VOLUME ] IN SERUM OR PLASMA BY CALCULATION 106 mg/dL 03/18 Specimen Type: PLASMA Comment: No hemolysis noted. Ordering Provider: Nicanor KENNEDY Report Released Date/Time: Mar 18, 2024 10:55 AM Reporting Lab: [address] [address] Performing Lab: [phone] [place] [address] [facility]OC LIPID PANEL (STL) CHOLESTEROL IN HDL [MASS/VOLUME ] IN SERUM OR PLASMA 54 mg/dL 40 03/18 Specimen Type: PLASMA Comment: No hemolysis noted. Ordering Provider: Nicanor KENNEDY Report Released Date/Time: Mar 18, 2024 10:55 AM Reporting Lab: [facility] [address] [place] [phone] Performing Lab: [address] [address] [facility] COMPREHENSI VE METABOLIC PANEL CREATININE [MASS/VOLUME ] IN SERUM OR PLASMA 1.14 mg/dL 0.7 - 1.3 03/18 Specimen Type: PLASMA Comment: No hemolysis noted. Ordering Provider: Nicanor KENNEDY Report Released Date/Time: Mar 18, 2024 10:55 AM Reporting Lab: [facility] [address] [place] [phone] Performing Lab: [address] [address] [facility] COMPREHENSI VE METABOLIC PANEL UREA NITROGEN [MASS/VOLUME ] IN SERUM OR PLASMA 16.6 mg/dL 9.0 - 25.0 03/18 Specimen Type: PLASMA Comment: No hemolysis noted. Ordering Provider: Nicanor KENNEDY Report Released Date/Time: Mar 18, 2024 10:55 AM Reporting Lab: [facility] [address] [place] [phone] Performing Lab: [facility] [address] [place] [phone] [facility] COMPREHENSI VE METABOLIC PANEL GLUCOSE [MASS/VOLUME ] IN SERUM OR PLASMA 108 mg/dL 72 - 99 03/18 H Specimen Type: PLASMA Comment: No hemolysis noted. Ordering Provider: Nicanor KENNEDY Report Released Date/Time: Mar 18, 2024 10:55 AM Reporting Lab: [address] [address] Performing Lab: [address] [address] [facility] COMPREHENSI VE METABOLIC PANEL SODIUM [MOLES/VOLUM E] IN SERUM OR PLASMA 139 meq/L 136 - 145 03/18 Specimen Type: PLASMA Comment: No hemolysis noted. Ordering Provider: Nicanor KENNEDY Report Released Date/Time: Mar 18, 2024 10:55 AM Reporting Lab: [facility] [address] [place] [phone] Performing Lab: [address] [address] [facility] COMPREHENSI VE METABOLIC PANEL POTASSIUM [MOLES/VOLUM E] IN SERUM OR PLASMA 4.9 meq/L 3.5 - 5 03/18 Specimen Type: PLASMA Comment: No hemolysis noted. Ordering Provider: Nicanor KENNEDY Report Released Date/Time: Mar 18, 2024 10:55 AM Reporting Lab: [facility] [address] [place] [phone] Performing Lab: [facility] [address] [place] [phone] [facility] COMPREHENSI VE METABOLIC PANEL CHLORIDE [MOLES/VOLUM E] IN SERUM OR PLASMA 106 meq/L 98 - 107 03/18 Specimen Type: PLASMA Comment: No hemolysis noted. Ordering Provider: Nicanor KENNEDY Report Released Date/Time: Mar 18, 2024 10:55 AM Reporting Lab: [address] [phone] Performing Lab: [phone] [place] [address] [facility]OC COMPREHENSI VE METABOLIC PANEL CARBON DIOXIDE, TOTAL [MOLES/VOLUM E] IN SERUM OR PLASMA 25 meq/L 22 - 31 03/18 Specimen Type: PLASMA Comment: No hemolysis noted. Ordering Provider: Nicanor KENNEDY Report Released Date/Time: Mar 18, 2024 10:55 AM Reporting Lab: [address] [address] Performing Lab: [address] [phone] [place] [address] [facility]OC COMPREHENSI VE METABOLIC PANEL CALCIUM [MASS/VOLUME ] IN SERUM OR PLASMA 9.3 mg/dL 8.4 - 10.4 03/18 Specimen Type: PLASMA Comment: No hemolysis noted. Ordering Provider: Nicanor KENNEDY Report Released Date/Time: Mar 18, 2024 10:55 AM Reporting Lab: [address] [phone] Performing Lab: [address] [phone] [facility] COMPREHENSI VE METABOLIC PANEL PROTEIN [MASS/VOLUME ] IN SERUM OR PLASMA 6.9 g/dL 6 - 8.6 03/18 Specimen Type: PLASMA Comment: No hemolysis noted. Ordering Provider: Nicanor KENNEDY Report Released Date/Time: Mar 18, 2024 10:55 AM Reporting Lab: [address] [address] Performing Lab: [address] [address] [facility] COMPREHENSI VE METABOLIC PANEL ALBUMIN [MASS/VOLUME ] IN SERUM OR PLASMA 4.3 g/dL 3.4 - 5 03/18 Specimen Type: PLASMA Comment: No hemolysis noted. Ordering Provider: Nicanor KENNEDY Report Released Date/Time: Mar 18, 2024 10:55 AM Reporting Lab: [address] [address] Performing Lab: [address] [phone] [place] [address] [facility]OC COMPREHENSI VE METABOLIC PANEL BILIRUBIN.TO ANTONI [MASS/VOLUME ] IN SERUM OR PLASMA 0.5 mg/dL 0.2 - 1.2 03/18 Specimen Type: PLASMA Comment: No hemolysis noted. Ordering Provider: Nicanor KENNEDY Report Released Date/Time: Mar 18, 2024 10:55 AM Reporting Lab: [address] [address] Performing Lab: [address] [address] [facility] COMPREHENSI VE METABOLIC PANEL ALKALINE PHOSPHATASE [ENZYMATIC ACTIVITY/VOL UME] IN SERUM OR PLASMA 73 U/L 40 - 150 03/18 Specimen Type: PLASMA Comment: No hemolysis noted. Ordering Provider: Nicanor KENNEDY Report Released Date/Time: Mar 18, 2024 10:55 AM Reporting Lab: [address] [address] Performing Lab: [address] [address] [facility] COMPREHENSI VE METABOLIC PANEL ASPARTATE AMINOTRANSFE RASE [ENZYMATIC ACTIVITY/VOL UME] IN SERUM OR PLASMA 28 U/L 5 - 34 03/18 Specimen Type: PLASMA Comment: No hemolysis noted. Ordering Provider: Nicanor KENNEDY Report Released Date/Time: Mar 18, 2024 10:55 AM Reporting Lab: [address] [address] Performing Lab: [address] [address] [facility] [place] [facility] COMPREHENSI VE METABOLIC PANEL ALANINE AMINOTRANSFE RASE [ENZYMATIC ACTIVITY/VOL UME] IN SERUM OR PLASMA 24 U/L 8 - 40 03/18 Specimen Type: PLASMA Comment: No hemolysis noted. Ordering Provider: Nicanor KENNEDY Report Released Date/Time: Mar 18, 2024 10:55 AM Reporting Lab: [place] [address] Performing Lab: [address] [facility] COMPREHENSI VE METABOLIC PANEL GLOMERULAR FILTRATION RATE/1.73 SQ M.PREDICTED [VOLUME RATE/AREA] IN SERUM, PLASMA OR BLOOD BY CREATININE-B ASED FORMULA (CKD-EPI 2020) 85.5 60 03/18 Specimen Type: PLASMA Comment: No hemolysis noted. Ordering Provider: Nicanor KENNEDY Report Released Date/Time: Mar 18, 2024 10:55 AM Reporting Lab: [facility] [address] [place] [address] Performing Lab: [address] [facility] HGA1C HEMOGLOBIN A1C/HEMOGLOB IN.TOTAL IN BLOOD 5.5 4.0 - 6.0 03/18 Specimen Type: BLOOD No comment entered. Ordering Provider: Nicanor KENNEDY Report Released Date/Time: Mar 18, 2024 10:55 AM Reporting Lab: [place] [address] Performing Lab: [address] [facility] TSH W/ REFLEX FT4 (STL) THYROTROPIN [UNITS/VOLUM E] IN SERUM OR PLASMA 0.605 u[IU]/ mL 0.47 - 5 03/18 Specimen Type: PLASMA No comment entered. Ordering Provider: Nicanor KENNEDY Report Released Date/Time: Mar 18, 2024 10:55 AM Reporting Lab: [facility] [address] [place], [place] [phone] Performing Lab: [facility] [address] [facility] [address] [facility] Vital Signs Combined list of inpatient and outpatient Vital Signs from Department of Defense and Veterans Affairs, ranging from 12 months to all on record, depending upon the facility. Vital Sign Value Date Comments Source SYSTOLIC BLOOD PRESSURE 120 03/29/2025 08:34:07 [facility] [place] DIASTOLIC BLOOD PRESSURE 83 03/29/2025 08:34:07 [...] to the last 18 months, not all [place] inpatient encounters are included; 2) Encounters from the Department of [facility] facilities going backup to 280 months. Location Location Details Encounter Type Encounter Number Reason For Visit Attending Provider ADM Date DC Date Status Disposition Source [facility]( art Team 1007) OUTPATIENT [id number] HARVEY BAPTISTE 07/08 Released with Work/Duty Limitations [facility]( Smart Team 1007) [facility]( art Team 1007) OUTPATIENT [id number] lft knee pain MIKE FORD 07/22 Released with Work/Duty Limitations [facility]( Smart Team 1007) [facility](Wi liteast earl Sick Call [facility] 237) OUTPATIENT [id number] L knee BEN BARNETT 08/26 Released with Work/Duty Limitations [facility]( Militar y Sick Call [facility] 237) [facility](Wi litary Sick Call [place] [address]) OUTPATIENT [id number] left knee AARTI STOVER 09/15 Released w/o Limitations [facility]( Militar y Sick Call [facility] 237) [facility](Wi litary Sick Call [place] [address]) OUTPATIENT [id number] pt c/o N/V. GUSTAVO SAMAYOA 09/16 Sick at Home/Quarter s [facility]( Militar y Sick Call [place] [address]) [facility] [place] [address]) OUTPATIENT [id number] f/u streap throat PRAMOD ARAUJO 10/03 Released w/o Limitations [facility]( [facility] [place] [address]) [facility] Sick Call [place] [address]) OUTPATIENT [id number] pt c/o left knee pain since bootcam p. AARTI STOVER 10/10 Released with Work/Duty Limitations [facility]( [facility] S[facility] [place] [address]) [facility] Sick Call [place] [address]) OUTPATIENT [id number] knee f/u AARTI STOVER 10/20 Released with Work/Duty Limitations [facility] [place] [address] Sick Call [place] [address]) OUTPATIENT [id number] eval for ffd GUSTAVO SAMAYOA 10/24 Released with Work/Duty Limitations [facility]( Militar y Sick Call [place] [address]) [facility] Sick Call [place] [address]) OUTPATIENT [id number] sore throat AARTI STOVER 10/29 Sick at Home/Quarter s [facility]( Militar y Sick Call [facility] 237) [facility](Wi litary Sick Call [facility] 237) OUTPATIENT [id number] f/u strep AARTI STOVER 10/30 Released w/o Limitations [facility]( Militar y Sick Call [facility] 237) Rachel [facility](Mi litary Sick Call [facility] 237) OUTPATIENT [id number] f/u L knee AARTI STOVER 11/18 Released w/o Limitations [facility]( Militar y Sick Call [facility] 237) [facility](Ph ysical Therapy/2 37) OUTPATIENT [id number] B[place] V[place]A 11/21 Released with Work/Duty Limitations [facility]( Physica l Therapy /237) [facility] [place] OUTPATIENT [id number] PHYSICA L GUSTAVO VALLE 03/19 Released w/o Limitations [facility] [place]( [facility]) [facility] [place]) OUTPATIENT [id number] RITCHIE JULES 03/19 Released w/o Limitations [facility] [place] [place] [facility]) [facility] [place] OUTPATIENT [id number] KOMAL SYED 03/19 Released w/o Limitations [facility] [place]( [facility] [facility]) [facility] [place]) OUTPATIENT [id number] SUB PHYS TAMIA DRUMMOND 03/31 Released w/o Limitations [facility] [place]( [place] [facility] [place](Gr oton Immunizat ion) OUTPATIENT [id number] Immuniz ations SAM PIRES 04/08 Released w/o Limitations [facility] [place]( [place] [facility]) [facility] [place]([facility]) OUTPATIENT [id number] SUB DUTY SIMON OAKES 05/01 Released with Work/Duty Limitations [facility] [place]( [place] [facility] [place]([facility]) OUTPATIENT [id number] mental health clearan SIMON Rosario 07/14 Released with Work/Duty Limitations [facility] [place]( [place] [facility]) [facility](Gr [facility]) OUTPATIENT [id number] R Hand injury LIZETH JENKINS 07/17 Released with Work/Duty Limitations [facility] [place] [place] [facility]) [facility](Immuniz ations [facility]) OUTPATIENT [id number] ppd/flu mist PLASCENCIAYVONNEShalom ARENAS 08/28 Released w/o Limitations [facility](Imm unizati ons [facility] ) [facility](Immuniz ations [facility]) OUTPATIENT [id number] ppd read JAZZ DAVIS 08/31 Released w/o Limitations [facility](Imm unizati ons [facility] ) [facility] ER, DIRECT TO [facility] [id number] ANA HANLEY 01/15 RETURNED TO DUTY [facility](Nutriti on [facility]) INPATIENT [id number] CHIDI Sterling 01/19 Inpatient- Still a Patient [facility](Nut rition [facility]) [facility](Nutriti on [facility]CP) INPATIENT [id number] TF f/u CHIDI ROBERT 01/24 Inpatient- Still a Patient [facility](Nut rition [facility]) [facility](Infecti ous Disease [facility]) INPATIENT [id number] TETO GARCÍA 01/26 Inpatient- Still a Patient [facility](Inf ectious Disease [facility]) [facility](Nutriti on NMCP) INPATIENT [id number] TF f/u CHIDI ROBERT 01/27 Inpatient- Still a Patient [facility](Nut rition [facility]) [facility](Infecti ous Disease [facility]) INPATIENT [id number] ELIEL TANG 01/27 Inpatient- Still a Patient [facility](Inf ectious Disease [facility]) [facility](Cardiol ogy [facility]) INPATIENT [id number] LUZMARIA Gaming 01/28 Inpatient- Still a Patient [facility](Car diology [facility]) [facility](Social Work [facility]) INPATIENT [id number] Psycho- social assessm HECTOR Johnson 02/03 Inpatient- Still a Patient [facility](Soc ial Work [facility]) [facility](Speech Pathology [facility]) INPATIENT [id number] Evaluat e for Passy Melba Speakin g Valve ODALIS RODRIGUEZ 02/07 Inpatient- Still a Patient [facility](Spe ech Patholo gy [facility]) [facility](Speech Pathology [facility]) INPATIENT [id number] AVM ODALIS RODRIGUEZ 02/08 Inpatient- Still a Patient [facility](Spe ech Patholo gy [facility]CP) [facility](Speech Pathology [facility]) INPATIENT [id number] ODALIS RODRIGUEZ 02/09 Inpatient- Still a Patient [facility](Spe ech Patholo gy [facility]) [facility](Speech Pathology [facility]) INPATIENT [id number] ODALIS RODRIGUEZ 02/10 Inpatient- Still a Patient [facility](Spe ech Patholo gy [facility]CP) [facility](Occ Therapy [facility]) [facility]PAT[facility] [id number] [facility] Inpatient- Still a Patient [facility](Occ Therapy [facility]) [facility](Occ Therapy [facility]) INPATIENT [id number] [facility]/14 Inpatient- Still a Patient [facility](Occ Therapy [facility]) [facility](Occ Therapy NMCP) [facility]PAT[facility] [id number] [facility] Inpatient- Still a Patient [facility](Occ Therapy [facility]) [facility](Nutriti on NMCP) INPATIENT [id number] YOLANDA CEDEÑO 02/15 Inpatient- Still a Patient [facility](Nut rition NM[facility]) [facility] [place](Occ Therapy [facility]) INPATIENT [id number] in JAZZ Moe. 02/16 Inpatient- Still a Patient [facility] [place](Occ Therapy [facility]) [facility] [place](Speech Pathology [facility]) INPATIENT [id number] Re assess Swallow functio n ODALIS RODRIGUEZ 02/16 Inpatient- Still a Patient [facility] [place](Spe ech Patholo gy [facility]) [facility] [place](Occ Therapy [facility]) INPATIENT [id number] in JAZZ Moe. 02/16 Inpatient- Still a Patient [facility] [place](Occ Therapy [facility]) [facility] [place](Speech Pathology [facility]) INPATIENT [id number] ODALIS RODRIGUEZ 02/16 Inpatient- Still a Patient [facility] [place](Spe ech Patholo gy [facility]) [facility] [place](Speech Pathology [facility]) INPATIENT [id number] Dysphag ia ODALIS Mejia 02/17 Inpatient- [facility] [place](Spe ech Patholo gy [facility]) [facility] [place](Case Managemen t [facility] [place]) OUTPATIENT [id number] CASE MANAGEM ENT IVANNA CORTÉS S 03/08 Released w/o Limitations [facility] [place] [facility] e Managem ent [facility] [place]) [facility] [place](Case Managemen t [facility] [place] [facility]) OUTPATIENT [id number] CASE MANAGEM ENT IVANNA CORTÉS S 03/09 Released w/o Limitations [facility] [place] [facility]ajuan e Managem ent [facility] [place] [facility]) [facility] [place] [facility](Case Mgmt Active Duty (AD)) OUTPATIENT [id number] CASE MANAGEM ENT IVANNA CORTÉS S 03/10 Released w/o Limitations [facility] [place](Dajuan e Mgmt Active Duty (AD)) [facility] [place] [facility](Case Mgmt Active Duty (AD)) OUTPATIENT [id number] IVANNA CORTÉS S 03/14 Released w/o Limitations [facility] [place](Dajuan e Mgmt Active Duty (AD)) [facility] [place] [facility](Case Mgmt Active Duty (AD)) OUTPATIENT [id number] CASE MANAGEM ENT IVANNA CORTÉS S 03/15 Released w/o Limitations [facility] [place](Dajuan e Mgmt Active Duty (AD)) [facility] [place] [facility] Managemen [facility] [place] [facility]) OUTPATIENT [id number] CASE MANAGEM ENT IVANNA CORTÉS S 03/17 Released w/o Limitations [facility] [place]uan e Managem ent [facility] [place] [facility] [place](Case Mgmt Active Duty (AD)) OUTPATIENT [id number] CASE MANAGEM ENT IVANNA CORTÉS S 03/18 Released w/o Limitations [facility] [place](Dajuan e Mgmt Active Duty (AD)) [facility] [place](Neurosu rgery [facility] OUTPATIENT [id number] preangi o for 04/11/ from [facility]/ms n leave ANA HANLEY 03/25 Released w/o Limitations [facility] [place](William rosurge ry [facility]CP) [facility] [place]([facility]) OUTPATIENT [id number] bump under R armpit x 3 days HODGESMARYLU LOPEZ F 04/05 Released w/o Limitations [facility] [place] ) [facility] [place] DIRECT TO MTF FROM OTHER THAN ER OR [facility] [id number] MELISSAEDUIN AMADOR RACHEL 04/11 [employer] [facility] [place](Neurosu rgery [facility]) OUTPATIENT [id number] f/u after angiogr am 04/11 ANA HANLEY 04/14 Released w/o Limitations [facility] [place](William rosurge ry [facility]) [facility] [place] [facility] ADMISSION RESULTING FROM [facility], DIRECT TO MTF [id number] ANA HANLEY 04/19 RETURNED TO DUTY [facility] [place] TELE CONSULT [id number] please call pt post surgery . Dr.Cobe brown, perform ed surgery 2 weeks ago. CHELSEA NEAL 05/06 [facility](William rosurge ry [facility]CP) [facility] [place](Case Managemen t [facility] [place]) OUTPATIENT [id number] Case Managem ent IVANNA CORTÉS S 05/06 Released w/o Limitations [facility](Dajuan e Managem ent [facility]) [facility] [place](Neurosu rgery [place]) TELE CONSULT [id number] pt would like for you to call him back, did not give details as to why. CHELSEA NEAL Mahin 05/23 [facility](William rosurge ry NMCP) [facility] [place](Neurosu rgery [place]) OUTPATIENT [id number] 1st post op f/u; no xrays ANA HANLEY 05/31 Released w/o Limitations [facility](William rosurge ry NMCP) [facility] [place](Neurosu rgery [place]) TELE CONSULT [id number] QUESTIO N FOR YOU CHELSEA NEAL Mahin 06/22 [facility](William rosurge ry NMCP) [facility] [place] [facility] OUTPATIENT [id number] c/o hang nail ingrown on lt foot 3 wks HIGHANUJEL 06/28 Released w/o Limitations [facility] ) [facility] [place](Neurosu rgery [place]) TELE CONSULT [id number] Med board CHELSEA NEAL Mahin 07/22 [facility](William rosurge ry NMCP) [facility]gery [facility]) TELE CONSULT [id number] Questio n CHELSEA NEAL 08/03 [facility](William rosurge ry NMCP) [facility] [place](Case Mgmt Active Duty (AD)) OUTPATIENT [id number] Case Managem ent IVANNA CORTÉS S 08/16 Released w/o Limitations [facility](Dajuan e Mgmt Active Duty (AD)) [facility](Case Mgmt Active Duty (AD)) OUTPATIENT [id number] Case Managem ent IVANNA CORTÉS S 08/17 Released w/o Limitations [facility](Dajuan e Mgmt Active Duty (AD)) [facility] [place] [facility](Case Mgmt Active Duty (AD)) OUTPATIENT [id number] Case Managem ent LYDIA CORTÉSA S 08/18 Released w/o Limitations [facility] [place](Dajuan e Mgmt Active Duty (AD)) [facility] [place] [facility](Case Mgmt Active Duty (AD)) OUTPATIENT [id number] Case Managem ent MOO, IVANNA S 08/19 Released w/o Limitations [facility] [place](Dajuan e Mgmt Active Duty (AD)) [facility] [place] [facility]) OUTPATIENT [id number] poss strep throat 2 days. TAMIA BALTAZAR 08/26 Released w/o Limitations [facility] [place] ) [facility] [place] [facility]) OUTPATIENT [id number] sore throat, weaknes s x 8 days; already seen but not better DAKOTA MCCORMICK 09/01 Released w/o Limitations [facility] [place] ) [facility] [place] [facility](Hearing Cons [place]) OUTPATIENT [id number] PAL MCLEOD 09/05 Released w/o Limitations [facility] [place]) [facility](Immuniz ations [facility]) OUTPATIENT [id number] ppd/flu mist KAREEN ARMENDARIZ 09/05 Released w/o Limitations [facility](Imm unizati ons [facility] ) [facility](Case Mgmt Active Duty (AD)) OUTPATIENT [id number] Case Managem ent IVANNA CORTÉS S 09/05 Released w/o Limitations [facility](Dajuan e Mgmt Active Duty (AD)) [facility](Immuniz ations [facility]) OUTPATIENT [id number] ppd check JESSICA SOSA 09/07 Released w/o Limitations [facility](Imm unizati ons [facility] ) [facility](Neurosu rgery [facility]) OUTPATIENT [id number] f/u EDUIN TORRES RACHEL 10/04 Released with Work/Duty Limitations [facility] [place]William rosurge ry [place]) [facility] [place] OUTPATIENT [id number] part 2 [facility] 10/06 [facility]ased w/o Limitations [facility] [place](Neurosu [facility]gery [facility]) TELE CONSULT [id number] DR. HANLEY PATIENT CHELSEA NEAL 10/20 [facility] [place](William rosurge ry [place]) [facility](Case Mgmt Active Duty (AD)) OUTPATIENT [id number] Case Managem ent IVANNA CORTÉS 10/26 Released w/o Limitations [facility] [place]Dajuan e Mgmt Active Duty (AD)) [facility] [place](Occ Therapy [facility]) OUTPATIENT [id number] [facility] DELETE_TA _MEREDITH BUCKNER 10/26 Released w/o Limitations [facility] [place]Occ Therapy [place]) [facility](Occ Therapy [facility]) OUTPATIENT [id number] LILI MONTES 10/31 Released w/o Limitations [facility]Occ Therapy [facility]) [facility](Occ Therapy [facility]) OUTPATIENT [id number] PAULO CORTÉS 11/02 Released w/o Limitations [facility]Occ Therapy [facility]) [facility](Neurosu [facility]gery [facility]) TELE CONSULT [id number] Letter CHELSEA NEAL 11/04 [facility](William rosurge ry [facility]) [facility](Occ Therapy [facility]) OUTPATIENT [id number] PAULO CORTÉS 11/07 Released w/o Limitations [facility]Occ Therapy [facility]) [facility](Occ Therapy [facility]) OUTPATIENT [id number] LILI MONTES 11/09 Released w/o Limitations [facility]Occ Therapy [facility]) [facility] [place](Neurosu rgery [place]) OUTPATIENT [id number] EDUIN TORRES 11/10 Released with Work/Duty Limitations [facility] [place](William rosurge ry NM[facility]) [facility]) OUTPATIENT [id number] Headach es since Sep 2008 DENISE BUSH 11/16 Released w/o Limitations [facility] [place]([facility] ) [facility](Neurosu rgery [facility]) TELE CONSULT [id number] dr torres patient . HAN SHAH 11/16 [facility] [place](William rosurge ry NMCP) [facility](Occ Therapy [facility]) OUTPATIENT [id number] LILI MONTES 11/17 Released w/o Limitations [facility] [place](Neurosu rgery [place]) TELE CONSULT [id number] pt status post brain hemmora ge now having difficu lt painful swallow ing. HAN SHAH Radha 11/21 [facility](William rosurge ry NMCP) [facility](Occ Therapy [facility]) OUTPATIENT [id number] LILI MONTES 11/21 Released w/o Limitations [facility] [place](Occ Therapy NM[place]) [facility] [place] (Case Mgmt Active Duty (AD)) OUTPATIENT [id number] Case Managem ent IVANNA CORTÉS 11/23 Released w/o Limitations [facility] [place](Dajuan e Mgmt Active Duty (AD)) [facility](Occ Therapy [facility]) OUTPATIENT [id number] PAULO CORTÉS 11/23 Released w/o Limitations [facility] [place](Occ Therapy NM[facility]) [facility] [place]) OUTPATIENT [id number] H/A since Sep ZAINAB SHETH 11/24 Released w/o Limitations [facility] [place] ) [facility](Occ Therapy [facility]) OUTPATIENT [id number] JHON_MEREDITH SEN 11/25 Released w/o Limitations [facility] [place](Occ Therapy NM[facility]) [facility] h(Case Mgmt Active Duty (AD)) OUTPATIENT [id number] Case Managem IVANNA Slade S 12/26 Released w/o Limitations [facility] [place](Dajuan e Mgmt Active Duty (AD)) [facility](Neurosu rgery NM[facility]) TELE CONSULT [id number] [facility] patient CHELSEA NEAL 01/19 [facility] [place](William rosurge ry NMCP) [facility](Case Mgmt Active Duty (AD)) OUTPATIENT [id number] Case Managem ent IVANNA CORTÉS S 01/23 Released w/o Limitations [facility] [place](Dajuan e Mgmt Active Duty (AD)) [facility]iology [employer] [employer]) OUTPATIENT [id number] 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 LATONYA MARADIAGA 02/02 Released w/o Limitations [facility] [place]Phy [facility] [employer] ) [facility](Radiology Rn Aquatic Team [facility]) OUTPATIENT [id number] RENEE GREENWOOD 02/16 Released w/o Limitations [facility] [place](Phy s Ther Aquatic Team NM[facility]) [facility] [employer]) OUTPATIENT [id number] HARVEY KONG 02/24 Released w/o Limitations [facility] [place]Phy [facility] [employer] ) [facility](Case Mgmt Active Duty (AD)) OUTPATIENT [id number] Case Managem ent IVANNA CORTÉS S 02/24 Released w/o Limitations [facility] [place](Dajuan e Mgmt Active Duty (AD)) [facility] [id number] NORAH JIMENEZ V 02/28 Released w/o Limitations [facility] [place] [place] ) [facility] [place]([facility] [employer]) OUTPATIENT [id number] HARVEY KONG 03/01 Released w/o Limitations [facility] [employer] ) [facility](Case Mgmt Active Duty (AD)) OUTPATIENT [id number] Case Managem IVANNA Slade 03/03 Released w/o Limitations [facility](Dajuan e Mgmt Active Duty (AD)) [facility] [employer]) OUTPATIENT [id number] HARVEY KONG 03/06 Released w/o Limitations [facility] [employer] ) [facility] [employer]) OUTPATIENT [id number] HARVEY KONG 03/13 Released w/o Limitations [facility]hy [facility] [employer] ) [facility] [employer]) OUTPATIENT [id number] NORAH JIMENEZ V 03/14 Released w/o Limitations [facility](Phy [facility] [employer] ) [facility] [employer]) OUTPATIENT [id number] HARVEY KONG 03/15 Released w/o Limitations [facility] [employer] ) [facility] [employer]) OUTPATIENT [id number] NORAH JIMENEZ V 03/21 Released w/o Limitations [facility](P[facility] [employer] ) [facility] [employer]) OUTPATIENT [id number] HARVEY KONG 03/27 Released w/o Limitations [facility] [employer] ) [facility] [employer]) OUTPATIENT [id number] ELVIA JEFFERS 04/12 Released w/o Limitations [facility] [employer] ) [facility] [employer]) OUTPATIENT [id number] ELVIA JEFFERS 04/14 Released w/o Limitations [facility] [employer] ) [facility](Case Mgmt Active Duty (AD)) OUTPATIENT [id number] Case Managem ent IVANNA CORTÉS S 04/17 Released w/o Limitations [facility](Dajuan e Mgmt Active Duty (AD)) [facility](Neurosu rgery [facility]) TELE CONSULT [id number] pt has shashank boucher medical board HAN SHAH 05/22 [facility](William rosurge ry [facility]) [facility](Neurosu rgery [facility]) OUTPATIENT [id number] f/u for med boards ANA HANLEY 05/24 Released w/o Limitations [facility](William rosurge ry [facility]) [facility](Case Mgmt Active Duty (AD)) OUTPATIENT [id number] Case Managem ent IVANNA CORTÉS S 05/29 Released w/o Limitations [facility](Dajuan e Mgmt Active Duty (AD)) [facility] [place]) OUTPATIENT [id number] CHRIS Bartholomew 06/01 Released w/o Limitations [facility](Phy s Ex[facility] [place]) [facility](Hearing Cons [place] [employer]) OUTPATIENT [id number] SIDNEY DICKERSON 06/01 Released w/o Limitations [facility](Hea ring Cons [place] [employer]) [facility] [place]) OUTPATIENT [id number] sore throat x 4 days MEREDITH PAGE 06/16 Sick at Home/Quarter s [facility] ) [facility](Neurosu rgery [facility]) TELE CONSULT [id number] prabhakar fontenot. would like to discuss med board. info cnt#[id number] [phone] CHELSEA NEAL 06/23 [facility](William rosurge ry [facility]) [facility](Case Mgmt Active Duty (AD)) OUTPATIENT [id number] Case Managem ent IVANNA CORTÉS S 08/01 Released w/o Limitations [facility](Dajuan e Mgmt Active Duty (AD)) [facility]) OUTPATIENT [id number] RIGHT WRIST PAIN ZAINAB SHETH 08/02 Released w/o Limitations [facility](Optomet ry [place]) OUTPATIENT [id number] eye exam DOROTHY SUH NMN 08/04 Released w/o Limitations [facility](Opt ometry [place]) [facility](Immuniz ation NM[facility]) OUTPATIENT [id number] Adult Imms - Flumist LISA PRASAD N P 08/17 Released w/o Limitations [facility](Imm unizati on NMCP) [facility](Neurosu rgery NMCP) TELE CONSULT [id number] Dr.Cobe brown pt. Mrs. Harvey rubio of Med Boards request ing consult for pt. CHELSEA NEAL 08/28 [facility](William rosurge ry NMCP) [facility](Neurosu rgery NMCP) TELE CONSULT [id number] PEB request PT HAN SHAH Radha 09/04 [facility](William rosurge ry NMCP) [facility](Radiology Rn [place]) OUTPATIENT [id number] TAMIA CARMONA 09/05 Released w/o Limitations [facility](Phy s Ther [place]) [facility](Occ Therapy [facility]) OUTPATIENT [id number] AVM bleed PAL NIEVES 09/12 Released w/o Limitations [facility](Occ Therapy [facility]) [facility](Case Mgmt Active Duty (AD)) OUTPATIENT [id number] Case Managem ent IVANNA CORTÉS 09/21 Released w/o Limitations [facility](Dajuan e Mgmt Active Duty (AD)) [facility]) OUTPATIENT [id number] UPDATE LIMITED PROFILE FOR ZAINAB JACOME 11/01 Released w/o Limitations [facility](Immuniz ations [facility]) OUTPATIENT [id number] VACCINE S WILTON SILVA 11/15 Released w/o Limitations [facility](Imm unizati ons [facility] ) [facility](Immuniz ations [facility]) OUTPATIENT [id number] vaccine JESSICA SOSA 11/21 Released w/o Limitations [facility](Imm unizati ons [facility] ) [facility]([place]) OUTPATIENT [id number] MEDICAL ASSIGNM ENT SCREEN (STANDB Y) KERRI TREJO 11/24 Released w/o Limitations [facility](Ove rseas Screeni [place] ) [facility]) OUTPATIENT [id number] Pain in tonsils /throat , hot flashes IRENE FERGUSON 11/28 Released w/o Limitations [facility] ) [facility](Neurosu rgery NMCP) TELE CONSULT [id number] pt's CO would like to speak with Dr Hanley [id number] CHELSEA NEAL 11/30 [facility](William rosurge ry NMCP) [facility](Neurosu rgery NMCP) OUTPATIENT [id number] f/u ANA HANLEY 12/01 Released w/o Limitations [facility](William rosurge ry NMCP) [facility] [place]) OUTPATIENT [id number] R MAGAÑA PAIN ZAINAB SHETH 12/05 Released w/o Limitations [facility] ) [facility](Case Mgmt Active Duty (AD)) OUTPATIENT [id number] Case Managem ent IVANNA CORTÉS S 12/15 Released w/o Limitations [facility](Dajuan e Mgmt Active Duty (AD)) [facility](Immuniz ations [facility]) OUTPATIENT [id number] vaccine CIERA FOREMAN Alessandro 01/09 Released w/o Limitations [facility](Imm unizati ons [facility] ) [facility]) OUTPATIENT [id number] Chest Pain EMMA WHALEY EDWARD 01/17 Released w/o Limitations [facility] ) [facility]) OUTPATIENT [id number] Injured right foot during PT x 5 days AYAD JEAN 02/21 Released w/o Limitations [facility] ) [facility]) OUTPATIENT [id number] f/u xray results ZAINAB SHETH 03/06 Released w/o Limitations [facility] ) [facility](Neurosu afshin HICP) TELE CONSULT [id number] Dr Hanley Pt . needs form stating he can fly. Pt leaving [place] on 7-6 ÁNGEL, CHELSEA L 03/26 [facility](William aniceto brown NMCP) [facility]) OUTPATIENT [id number] sore throat EMMA WHALEY EDWARD 03/28 Released w/o Limitations [facility] ) [facility]) OUTPATIENT [id number] seen yesterd ay for sorethr oat today throat is worse BRENT HARRISON 03/29 Released w/o Limitations [facility] ) [facility](Immuniz ations [facility]) OUTPATIENT [id number] vaccine JAZZ DAVIS 05/09 Released w/o Limitations [facility](Imm unizati ons [facility] ) [facility]) OUTPATIENT [id number] R FOOT EVALUAT ION ZAINAB SHETH 05/15 Released w/o Limitations [facility] [place] ) [facility](Immuniz ations [facility]) OUTPATIENT [id number] vaccine AKREEN ARMENDARIZ 05/21 Released w/o Limitations [facility](Imm unizati ons [facility] ) [facility](Phys Exam [place]) OUTPATIENT [id number] SEPARAT ION PHYSICA L [id number] CHRIS CHONG S 05/22 Released w/o Limitations [facility](Phy s Exam [place]) [facility](Neurosu rgery [place]) TELE CONSULT [id number] Pt c/o of more frequen t paralys is, since surgery . 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 [id number] CHRISTINE SALDIVAR 03/18 [facility] OFFICE O/P EST LOW 20 MIN [id number] Diagnos is: ICD-10- CM Z00.00 Encntr for general adult medical exam w/o abnorma l finding s Nicanor KENNEDY L 03/18 [facility] Outpatient Encounter [id number] 04/07 [facility] Outpatient Encounter [id number] 07/13 [facility] Outpatient Encounter [id number] 09/09 [facility] Outpatient Encounter [id number] CARLA DOOLEY DUNIA 03/16 [facility] OFFICE O/P EST LOW 20 MIN [id number] Diagnos is: ICD-10- CM Z00.00 Encntr for general adult medical exam w/o abnorma l finding s Nicanor KENNEDY 03/29 [facility] PSYTX W PT 30 MINUTES [id number] Diagnos is: ICD-10- CM 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 Procedure Procedure Type Code Date Perfomer Comments Sourc e INDIVIDUAL PSYCHOTHERAPY, INSIGHT ORIENTED, BEHAVIOR MODIFYING AND/OR SUPPORTIVE, IN AN OFFICE OR OUTPATIENT FACILITY, APPROXIMATELY 20 TO 30 MINUTES [id number] WITH THE PATIENT 2006 [facility] PSYCHIATRIC DIAGNOSTIC INTERVIEW EXAMINATION 2006 DoD IMMUNIZATION ADMINISTRATION (INCLUDES PERCUTANEOUS, INTRADERMAL, SUBCUTANEOUS, OR INTRAMUSCULAR INJECTIONS); 1 VACCINE (SINGLE OR COMBINATION VACCINE/TOXOID) 2006 [facility] PURE TONE AUDIOMETRY (THRESHOLD); AIR ONLY 2006 [facility] DETERMINATION OF REFRACTIVE STATE 2006 DoD THERAPEUTIC PROCEDURE, 1 OR MORE AREAS, EACH 15 MINUTES; THERAPEUTIC EXERCISES TO DEVELOP STRENGTH AND ENDURANCE, RANGE OF MOTION AND FLEXIBILITY 2006 DoD BUPRENORPHINE IMPLANT, 74.2 MG 2006 [facility] INDIVIDUAL PSYCHOTHERAPY, INSIGHT ORIENTED, BEHAVIOR MODIFYING AND/OR SUPPORTIVE, IN AN OFFICE OR OUTPATIENT FACILITY, APPROXIMATELY 20 TO 30 MINUTES [id number] WITH THE PATIENT 2006 [facility] PSYCHOLOGICAL TSTING (INCL PSYCHODIAG ASSESSMNT, EMOTITY, INTELLECTUAL ABILITIES, PERSONALITY &PSYCHOPATHOLOGY, EG, MMPI), ADMINISTERED COMPUTER, W QUALIFIED HEALTH DRAFTER (CAD) ELECTRONIC INTERPRET &RPT 2006 [facility] PSYCHIATRIC DIAGNOSTIC INTERVIEW EXAMINATION 2006 [facility] THERAPEUTIC PROCEDURE, 1 OR MORE AREAS, EACH 15 MINUTES; THERAPEUTIC EXERCISES TO DEVELOP STRENGTH AND ENDURANCE, RANGE OF MOTION AND FLEXIBILITY 2005 [facility] ORAL THERMOMETER, REUSABLE, ANY TYPE, EACH 2005 [facility] TYPHOID VACCINE, CAPSULAR POLYSACCHARIDE (VICPS), FOR INTRAMUSCULAR USE 2005 DoD BUPRENORPHINE IMPLANT, 74.2 MG 2005 [facility] SCREENING TEST OF VISUAL ACUITY, QUANTITATIVE, BILATERAL 2005 [facility] AUDIOMETRIC TESTING OF GROUPS 2005 DoD SKIN TEST; TUBERCULOSIS, INTRADERMAL 2005 [facility] SKIN TEST; TUBERCULOSIS, INTRADERMAL 2009 Do[facility] SKIN TEST; TUBERCULOSIS, INTRADERMAL 2009 [facility] ELECTROCARDIOGRAM, ROUTINE ECG WITH AT LEAST 12 LEADS; WITH INTERPRETATION AND REPORT 2009 DoD SKIN TEST; TUBERCULOSIS, INTRADERMAL 2009 [facility] CASE MANAGEMENT, EACH 15 MINUTES 2009 [facility] IMMUNIZATION ADMINISTRATION (INCLUDES PERCUTANEOUS, INTRADERMAL, SUBCUTANEOUS, OR INTRAMUSCULAR INJECTIONS); EACH ADDITIONAL VACCINE (SINGLE OR COMBINATION VACCINE/TOXOID) 2009 [facility] CASE MANAGEMENT, EACH 15 MINUTES 2008 [facility] OCCUPATIONAL THERAPY EVALUATION 2008 [facility] PHYSICAL THERAPY RE-EVALUATION 2008 [facility] INFLUENZA VIRUS VACCINE, TRIVALENT, LIVE (LAIV3), FOR INTRANASAL USE 2008 [facility] FITTING OF SPECTACLES, EXCEPT FOR APHAKIA; MONOFOCAL 2008 [facility] COORDINATED CARE FEE, RISK ADJUSTED MAINTENANCE, LEVEL 4 2008 [facility] HANDLING AND/OR CONVEYANCE OF SPECIMEN FOR TRANSFER FROM THE OFFICE TO A LABORATORY 2008 [facility] SCREENING TEST, PURE TONE, AIR ONLY 2008 DoD COORDINATED CARE FEE, RISK ADJUSTED MAINTENANCE, LEVEL 4 2008 [facility] COORDINATED CARE FEE, RISK ADJUSTED MAINTENANCE, LEVEL 4 2008 [facility] THERAPEUTIC PROCEDURE, 1 OR MORE AREAS, EACH 15 MINUTES; THERAPEUTIC EXERCISES TO DEVELOP STRENGTH AND ENDURANCE, RANGE OF MOTION AND FLEXIBILITY 2008 [facility] THERAPEUTIC PROCEDURE, 1 OR MORE AREAS, EACH 15 MINUTES; THERAPEUTIC EXERCISES TO DEVELOP STRENGTH AND ENDURANCE, RANGE OF MOTION AND FLEXIBILITY 2008 [facility] SELF-CARE/HOME MANAGMENT TRAIN (EG,ACT OF DAILY LIVING (ADL) &COMPENSAT TRAIN,MEAL PREPARATION,SAFETY PROCS,AND INSTRUCT IN USE OF ASST TECHNOLOGY DEV/ADPT EQUIP) DIR ONE-ON-ONE CONT,EA 15 MINUTES 2008 [facility] THERAPEUTIC PROCEDURE, 1 OR MORE AREAS, EACH 15 MINUTES; THERAPEUTIC EXERCISES TO DEVELOP STRENGTH AND ENDURANCE, RANGE OF MOTION AND FLEXIBILITY 2008 [facility] SELF-CARE/HOME MANAGMENT TRAIN (EG,ACT OF DAILY LIVING (ADL) &COMPENSAT TRAIN,MEAL PREPARATION,SAFETY PROCS,AND INSTRUCT IN USE OF ASST TECHNOLOGY DEV/ADPT EQUIP) DIR ONE-ON-ONE CONT,EA 15 MINUTES 2008 [facility] THERAPEUTIC PROCEDURE, 1 OR MORE AREAS, EACH 15 MINUTES; AQUATIC THERAPY WITH THERAPEUTIC EXERCISES 2008 [facility] SELF-CARE/HOME MANAGMENT TRAIN (EG,ACT OF DAILY LIVING (ADL) &COMPENSAT TRAIN,MEAL PREPARATION,SAFETY PROCS,AND INSTRUCT IN USE OF ASST TECHNOLOGY DEV/ADPT EQUIP) DIR ONE-ON-ONE CONT,EA 15 MINUTES 2008 [facility] SELF-CARE/HOME MANAGMENT TRAIN (EG,ACT OF DAILY [...] DoD CASE MANAGEMENT, EACH 15 MINUTES 2008 [facility] OCCUPATIONAL THERAPY RE-EVALUATION 2008 DoD THERAPEUTIC [...] IMPROVE FUNCTIONAL PERFORMANCE), EACH 15 MINUTES 2008 [facility] NEUROPSYCHOLOG TST (EG,VAL-RE[facility]AN NEUROPSYCHOLOG JEREMIAS,ANASTASIIA MEM SCALES & WISC CARD SORT TST),/HR OF PSYCHOLOGIST/PHYS TIME,BOTH [id number] ADMIN TST TO PAT & TIME INTERP [...] WISC CARD SORT TST),/HR OF PSYCHOLOGIST/PHYS TIME,BOTH [id number] ADMIN TST TO PAT & TIME INTERP TEST RES & PREP RPT 2008 [facility] THERAPEUTIC PROCEDURE, 1 OR MORE AREAS, EACH 15 MINUTES; THERAPEUTIC EXERCISES TO DEVELOP STRENGTH AND ENDURANCE, RANGE OF MOTION AND FLEXIBILITY 2008 DoD COORDINATED CARE FEE, RISK ADJUSTED MAINTENANCE, LEVEL 3 2008 [facility] UNLISTED SPECIAL SERVICE, PROCEDURE OR REPORT 2008 [facility] PSYCHOLOGICAL TSTING (INCL PSYCHODIAG ASSESSMNT, EMOTITY, INTELLECTUAL ABILITIES, PERSONALITY &PSYCHOPATHOLOGY, EG, MMPI), ADMINISTERED COMPUTER, W QUALIFIED HEALTH DRAFTER (CAD) ELECTRONIC INTERPRET &RPT 2008 [facility] PSYCHIATRIC DIAGNOSTIC INTERVIEW EXAMINATION 2008 [facility] SCREENING TEST OF VISUAL ACUITY, QUANTITATIVE, BILATERAL 2008 DoD COORDINATED CARE FEE, RISK ADJUSTED MAINTENANCE, LEVEL 3 2007 [facility] IMMUNIZATION ADMINISTRATION BY INTRANASAL OR ORAL ROUTE; 1 VACCINE (SINGLE OR COMBINATION VACCINE/TOXOID) 2007 [facility] AUDIOMETRIC TESTING OF GROUPS 2007 [facility] COLLECTION OF VENOUS BLOOD BY VENIPUNCTURE 2007 [facility] HANDLING AND/OR CONVEYANCE OF SPECIMEN FOR TRANSFER FROM THE OFFICE TO A LABORATORY 2007 DoD CASE MANAGEMENT, EACH 15 MINUTES 2007 DoD CASE MANAGEMENT, EACH 15 MINUTES 2007 DoD CASE MANAGEMENT, EACH 15 MINUTES 2007 DoD COORDINATED CARE FEE, RISK ADJUSTED MAINTENANCE 2007 DoD CASE MANAGEMENT, EACH 15 MINUTES 2007 [facility] COMPUTERIZED AXIAL TOMOGRAPHY OF HEAD 2007 [facility] ARTERIOGRAPHY OF CEREBRAL ARTERIES 2007 [facility] OTHER EXCISION OR DESTRUCTION OF LESION OR TISSUE OF BRAIN 2007 [facility] OTHER CRANIECTOMY 2007 DoD POSTOPERATIVE FOLLOW-UP [...] POSTOPERATIVE PERIOD REASON RELATED ORIGINAL PROCEDURE 2007 [facility] SURGERY OF INTRACRANIAL ARTERIOVENOUS MALFORMATION; SUPRATENTORIAL, SIMPLE 2007 DoD UNLISTED SPECIAL SERVICE, PROCEDURE OR REPORT 2007 DoD CASE MANAGEMENT, EACH 15 MINUTES 2007 DoD CASE MANAGEMENT, EACH 15 MINUTES 2007 DoD CASE MANAGEMENT, EACH 15 MINUTES 2007 DoD CASE MANAGEMENT, EACH 15 MINUTES 2007 DoD CASE MANAGEMENT, EACH 15 MINUTES 2007 DoD CASE MANAGEMENT, EACH 15 MINUTES 2007 DoD VENOUS CATHETERIZATION, NOT ELSEWHERE CLASSIFIED 2007 [facility] PERCUTANEOUS [ENDOSCOPIC] GASTROSTOMY [PEG] 2007 [facility] COMPUTERIZED AXIAL TOMOGRAPHY OF HEAD 2007 [facility] COMPUTERIZED AXIAL TOMOGRAPHY OF THORAX 2007 [facility] COMPUTERIZED AXIAL TOMOGRAPHY OF ABDOMEN 2007 [facility] ARTERIOGRAPHY OF CEREBRAL ARTERIES 2007 [facility] DIAGNOSTIC ULTRASOUND OF HEART 2007 [facility] OTHER DIAGNOSTIC ULTRASOUND 2007 [facility] RESPIRATORY MEDICATION ADMINISTERED BY NEBULIZER 2007 [facility] OTHER OXYGEN ENRICHMENT 01/28 [facility] INSERTION OF ENDOTRACHEAL TUBE 2007 [facility] OTHER LAVAGE OF BRONCHUS AND TRACHEA 2007 [facility] ENTERAL INFUSION OF CONCENTRATED NUTRITIONAL SUBSTANCES 2007 [facility] CONTINUOUS MECHANICAL VENTILATION FOR 96 CONSECUTIVE HOURS OR MORE 2007 [facility] INJECTION OF ANTICOAGULANT 2007 [facility] INJECTION OF ANTIBIOTIC 01/28 [facility] CLOSED [ENDOSCOPIC] BIOPSY OF BRONCHUS 2007 [facility] TEMPORARY TRACHEOSTOMY 02/17 [facility] OTHER INCISION OF BRAIN 01/28 [facility] VENTRICULOSTOMY 2007 [facility] TREATMENT OF SWALLOWING DYSFUNCTION AND/OR ORAL FUNCTION FOR FEEDING 2007 DoD POSTOPERATIVE FOLLOW-UP VISIT, NORMALLY INCLUDED IN THE SURGICAL PACKAGE, INDICATE THAT EVALUATION & MANAGEMENT SERVICE WAS PERFORMED DURING A POSTOPERATIVE PERIOD REASON RELATED ORIGINAL PROCEDURE 2007 [facility] THERAPEUTIC PROCEDURE,1 OR MORE AREAS,EACH 15 MINUTES;NEUROMUSCULAR REEDUCATION OF MOVEMENT,BALANCE,COORDI NATION,KINESTHETIC SENSE,POSTURE,AND/OR PROPRIOCEPTION FOR SITTING AND/OR STANDING ACTIVITIES 2007 [facility] TREATMENT OF SWALLOWING DYSFUNCTION AND/OR ORAL FUNCTION FOR FEEDING 2007 DoD THERAPEUTIC PROCEDURE, 1 OR MORE AREAS, EACH 15 MINUTES; GAIT TRAINING (INCLUDES STAIR CLIMBING) 2007 DoD POSTOPERATIVE FOLLOW-UP VISIT, NORMALLY INCLUDED IN THE SURGICAL PACKAGE, INDICATE THAT EVALUATION & MANAGEMENT SERVICE WAS PERFORMED DURING A POSTOPERATIVE PERIOD REASON RELATED ORIGINAL PROCEDURE 2007 [facility] SELF-CARE/HOME MANAGMENT TRAIN (EG,ACT OF DAILY LIVING (ADL) &COMPENSAT TRAIN,MEAL PREPARATION,SAFETY PROCS,AND INSTRUCT IN USE OF ASST TECHNOLOGY DEV/ADPT EQUIP) DIR ONE-ON-ONE CONT,EA 15 MINUTES 2007 DoD THERAPEUTIC PROCEDURE, 1 OR MORE AREAS, EACH 15 MINUTES; GAIT TRAINING (INCLUDES STAIR CLIMBING) 2007 [facility] MEDICAL NUTRITION THERAPY; RE-ASSESSMENT AND INTERVENTION, INDIVIDUAL, [id number] WITH THE PATIENT, EACH 15 MINUTES 2007 [facility] SELF-CARE/HOME MANAGMENT TRAIN (EG,ACT OF DAILY LIVING (ADL) &COMPENSAT TRAIN,MEAL PREPARATION,SAFETY PROCS,AND INSTRUCT IN USE OF ASST TECHNOLOGY DEV/ADPT EQUIP) DIR ONE-ON-ONE CONT,EA 15 MINUTES 2007 [facility] THERAPEUTIC ACTIVITIES, DIRECT (ONE-ON-ONE) PATIENT CONTACT [...] POSTOPERATIVE PERIOD REASON RELATED ORIGINAL PROCEDURE 2007 [facility] PHYSICAL THERAPY RE-EVALUATION 2007 DoD POSTOPERATIVE FOLLOW-UP VISIT, NORMALLY INCLUDED IN THE SURGICAL PACKAGE, INDICATE THAT EVALUATION & MANAGEMENT SERVICE WAS PERFORMED DURING A POSTOPERATIVE PERIOD REASON RELATED ORIGINAL PROCEDURE 2007 [facility] THERAPEUTIC ACTIVITIES, DIRECT (ONE-ON-ONE) PATIENT CONTACT (USE OF DYNAMIC ACTIVITIES TO IMPROVE FUNCTIONAL PERFORMANCE), EACH 15 MINUTES 2007 [facility] TREATMENT OF SWALLOWING DYSFUNCTION AND/OR ORAL FUNCTION FOR FEEDING 2007 DoD POSTOPERATIVE FOLLOW-UP VISIT, NORMALLY INCLUDED IN THE SURGICAL PACKAGE, INDICATE THAT EVALUATION & MANAGEMENT SERVICE WAS PERFORMED DURING A POSTOPERATIVE PERIOD REASON RELATED ORIGINAL PROCEDURE 2007 [facility] THERAPEUTIC ACTIVITIES, DIRECT (ONE-ON-ONE) PATIENT CONTACT (USE OF DYNAMIC ACTIVITIES TO IMPROVE FUNCTIONAL PERFORMANCE), EACH 15 MINUTES 2007 [facility] THERAPEUTIC PROCEDURE, 1 OR MORE AREAS, EACH 15 MINUTES; THERAPEUTIC EXERCISES TO DEVELOP STRENGTH AND ENDURANCE, RANGE OF MOTION AND FLEXIBILITY 2007 [facility] TREATMENT OF SWALLOWING DYSFUNCTION AND/OR ORAL [...] POSTOPERATIVE PERIOD REASON RELATED ORIGINAL PROCEDURE 2007 [facility] THERAPEUTIC ACTIVITIES, DIRECT (ONE-ON-ONE) PATIENT CONTACT (USE OF DYNAMIC ACTIVITIES TO IMPROVE FUNCTIONAL PERFORMANCE), EACH 15 MINUTES 2007 [facility] TREATMENT OF SPEECH, LANGUAGE, VOICE, COMMUNICATION, AND/OR AUDITORY PROCESSING DISORDER; INDIVIDUAL 2007 [facility] MEDICAL NUTRITION THERAPY; RE-ASSESSMENT AND INTERVENTION, INDIVIDUAL, [id number] WITH THE PATIENT, EACH 15 MINUTES 2007 [facility] OCCUPATIONAL THERAPY EVALUATION 2007 [facility] THERAPEUTIC ACTIVITIES, DIRECT (ONE-ON-ONE) PATIENT CONTACT (USE OF DYNAMIC ACTIVITIES TO IMPROVE FUNCTIONAL PERFORMANCE), EACH 15 MINUTES 2007 DoD TRACHEOSTOMY SPEAKING VALVE 2007 [facility] POSTOPERATIVE FOLLOW-UP VISIT, NORMALLY INCLUDED IN THE SURGICAL PACKAGE, INDICATE THAT EVALUATION & MANAGEMENT SERVICE WAS PERFORMED DURING A POSTOPERATIVE PERIOD REASON RELATED ORIGINAL PROCEDURE 2007 [facility] PHYSICAL THERAPY EVALUATION 2007 [facility] TRACHEOSTOMY SPEAKING VALVE 2007 DoD POSTOPERATIVE FOLLOW-UP VISIT, NORMALLY INCLUDED IN THE SURGICAL PACKAGE, INDICATE THAT EVALUATION & MANAGEMENT SERVICE WAS PERFORMED DURING A POSTOPERATIVE PERIOD REASON RELATED ORIGINAL PROCEDURE 2007 [facility] PHYSICAL THERAPY EVALUATION 2007 [facility] HEALTH&BEHAV ASSESSMENT (EG, HEALTH-FOC CLINICAL INTERVIEW, BEHAVIORAL OBSERVATIONS, PSYCHOPHYSICOLOGICAL MONITOR, HEALTH-ORIENT QUESTIONNAIRES), EA 15 MIN [id number] W THE PATIENT; INIT ASSESSMENT 2007 [facility] MEDICAL NUTRITION THERAPY; RE-ASSESSMENT AND INTERVENTION, INDIVIDUAL, [id number] WITH THE PATIENT, EACH 15 MINUTES 2007 [facility] INSERTION OF GASTROSTOMY TUBE, PERCUTANEOUS, UNDER FLUOROSCOPIC GUIDANCE INCLUDING CONTRAST INJECTION(S), IMAGE DOCUMENTATION AND REPORT 2007 [facility] MEDICAL NUTRITION THERAPY; RE-ASSESSMENT AND INTERVENTION, INDIVIDUAL, [id number] WITH THE PATIENT, EACH 15 MINUTES 2007 [facility] MEDICAL NUTRITION THERAPY; RE-ASSESSMENT AND INTERVENTION, INDIVIDUAL, [id number] WITH THE PATIENT, EACH 15 MINUTES 2007 [facility] POSTOPERATIVE FOLLOW-UP VISIT, NORMALLY INCLUDED IN THE SURGICAL PACKAGE, INDICATE THAT EVALUATION & MANAGEMENT SERVICE WAS PERFORMED DURING A POSTOPERATIVE PERIOD REASON RELATED ORIGINAL PROCEDURE 2007 [facility] POSTOPERATIVE FOLLOW-UP VISIT, NORMALLY INCLUDED IN THE SURGICAL PACKAGE, INDICATE THAT EVALUATION & MANAGEMENT SERVICE WAS PERFORMED DURING A POSTOPERATIVE PERIOD REASON RELATED ORIGINAL PROCEDURE 2007 [facility] CRANIECTOMY OR CRANIOTOMY FOR EVACUATION OF HEMATOMA, SUPRATENTORIAL; INTRACEREBRAL 2007 [facility] MEDICAL NUTRITION THERAPY; RE-ASSESSMENT AND INTERVENTION, INDIVIDUAL, [id number] WITH THE PATIENT, EACH 15 MINUTES 2007 [facility] SKIN TEST; TUBERCULOSIS, INTRADERMAL 2006 [facility] PT A e ment Kinetic Training PT Assessment Kinetic Training 46836 2007 JAZZ CARTER [facility] Training And Self-Care Skills Training And Self-Care Skills 67088 2007 JAZZ CARTER [facility] Exercises A isted Exercises For ROM Exercises Assisted Exercises For ROM 22456 2007 JAZZ CARTER [facility] Treatment Of Swallowing Dysfunction Treatment Of Swallowing Dysfunction 65944 2007 ODALIS RODRIGUEZ [facility] ENT Services Supervised Individual Speech/Hearing Therapy 2007 ODALIS RODRIGUEZ [facility] Treatment Of Swallowing Dysfunction Treatment Of Swallowing Dysfunction 79662 2007 ODALIS RODRIGUEZ [facility] Tracheostomy speaking valve 2007 ODALIS RODRIGUEZ [facility] Special ENT Services Evaluation of Speech/Hearing Problem 2007 ODALIS RODRIGUEZ [facility] Evaluation Of Swallowing And Oral Function Evaluation Of Swallowing And Oral Function 38689 2007 ODALIS RODRIGUEZ [facility] Tracheostomy speaking valve 2007 ODALIS RODRIGUEZ [facility] Health And Behav A e mt Each 15 Min Initial A e ment Health And Behav Assessmt Each 15 Min Initial Assessment 65803 2007 HECTOR DODGE [facility] Medical Nutrition Therapy Re-a e ment, Intervention Medical Nutrition Therapy Re-assessment, Intervention 79995 2007 CHIDI ROBERT Cj [facility] Medical Nutrition Therapy Re-a e ment, Intervention Medical Nutrition Therapy Re-assessment, Intervention 49493 2007 YESICA CHIDI F [facility] Medical Nutrition Therapy Re-a e ment, Intervention Medical Nutrition Therapy Re-assessment, Intervention 62587 2007 CHIDI ROBERT Immunization Admin By Intranasal / Oral Route One Vaccine Immunization Admin By Intranasal / Oral Route One Vaccine 29240 2006 PASQUALE PLASCENCIA [facility] Influenza Virus Vaccine Live Intranasal 2006 PASQUALE PLASCENCIA [facility] Skin Test Anergy Tuberculin Intradermal Skin Test Anergy Tuberculin Intradermal 89977 2006 PASQUALE PLASCENCIA [facility] Psychiatric Therapy Individual Approximately 20-30 Minutes Psychiatric Therapy Individual Approximately 20-30 Minutes 18302 2006 ALESSIA TAN [facility] Psychiatric Evaluation Comprehensive Examination Psychiatric Evaluation Comprehensive Examination 19701 2006 ALESSIA TAN Hepatitis A And Hepatitis B (Intramuscular Use) Adult Dosage Hepatitis A And Hepatitis B (Intramuscular Use) Adult Dosage 56465 2006 ROQUE WHITNEY Immunization Administration One Vaccine Immunization Administration One Vaccine 21095 2006 ROQUE WHITNEY Threshold Audiogram (Pure Tone) Threshold Audiogram (Pure Tone) 69180 2006 KOMAL SYED Audiogram (Screening) Audiogram (Screening) 23789 2006 RITCHIE YOUNG Ophthalmological New Patient Start Comprehensive Care Ophthalmological New Patient Start Comprehensive Care 18328 2006 GUSTAVO VALLE Determination Of Refractive State Determination Of Refractive State 51264 2006 GUSTAVO VALLE Exercises A isted Exercises For ROM Exercises Assisted Exercises For ROM 19087 2006 BRET VILLA PT A e ment Kinetic Training Initial 30 Minutes PT Assessment Kinetic Training Initial 30 Minutes 22077 2006 BRET VILLA Physical Medicine - Group Physical Therapy Se ion Physical Medicine - Group Physical Therapy Session 05391 2006 BRET VILLA Psychiatric Therapy Environmental Intervention Psychiatric Therapy Environmental Intervention 41720 2006 LEMUEL SAMPSON [facility] Psychiatric Therapy Individual Approximately 20-30 Minutes Psychiatric Therapy Individual Approximately 20-30 Minutes 80727 2006 LEMUEL SAMPSON [facility] Psychologic Testing And Report Administered By Computer Psychologic Testing And Report Administered By Computer 28207 2006 LEMUEL SAMPSON [facility] Psychiatric Evaluation Comprehensive Examination Psychiatric Evaluation Comprehensive Examination 76062 2006 LEMUEL SAMPSON [facility] Skin Test Anergy Tuberculin Intradermal Skin Test Anergy Tuberculin Intradermal 96883 2009 KAREEN ARMENDARIZ [facility] Skin Test Anergy Tuberculin Intradermal Skin Test Anergy Tuberculin Intradermal 41525 2009 JAZZ DAVIS [facility] Electrocardiogram Electrocardiogram 41440 01/17 EMMA WHALEY [facility] Skin Test Anergy Tuberculin Intradermal Skin Test Anergy Tuberculin Intradermal 68635 2009 CIERA FOREMAN [facility] Coordinated care fee, risk adjusted maintenance 2009 IVANNA CORTÉS [facility] Case Management, each 15 minutes 2009 IVANNA CORTÉS [facility] Influenza Virus Vaccine Pandemic Formulation Influenza Virus Vaccine Pandemic Formulation 71756 2009 WILTON SILVA [facility] Immunization Admin By Intranasal / Oral Route One Vaccine Immunization Admin By Intranasal / Oral Route One Vaccine 62899 2009 WILTON SILVA [facility] Immunization Administration Each Additional Vaccine 2009 WILTON SILVA [facility] Typhoid Vaccine Vi Capsular Polysaccharide, For Intramus Use Typhoid Vaccine Vi Capsular Polysaccharide, For Intramus Use 08783 2009 WILTON SILVA [facility] Skin Test Anergy Tuberculin Intradermal Skin Test Anergy Tuberculin Intradermal 28070 2009 WILTON SILVA [facility] Coordinated care fee, risk adjusted maintenance, Level 4 2009 IVANNA CORTÉS [facility] Case Management, each 15 minutes 2009 IVANNA CORTÉS [facility] Occupational Therapy Evaluation Occupational Therapy Evaluation 76224 2008 PAL NIEVES 30 min [facility] Physical Medicine Physical Therapy Re-Evaluation Physical Medicine Physical Therapy Re-Evaluation 61643 2008 TAMIA CARMONA [facility] Influenza Virus Vaccine Live Intranasal 2008 HEIDE PRASAD [facility] Immunization Admin By Intranasal / Oral Route One Vaccine Immunization Admin By Intranasal / Oral Route One Vaccine 13451 2008 HEIDE PRASAD [facility] Coordinated care fee, risk adjusted maintenance, Level 4 2008 IVANNA CORTÉS [facility] Spectacles Services Fitting Monofocals (Not For Aphakia) Spectacles Services Fitting Monofocals (Not For Aphakia) 01416 2008 DOROTHY SUH HIElin [facility] Determination Of Refractive State Determination Of Refractive State 97774 2008 DOROTHY SUH HIElin [facility] Ophthalmological New Patient Start Comprehensive Care Ophthalmological New Patient Start Comprehensive Care 38561 2008 DOROTHY SUH HIElin [facility] -Supervised Specimen Handling / Transfer: Office To Lab -Supervised Specimen Handling / Transfer: Office To Lab 16244 2008 MEREDITH PAGE [facility] Coordinated care fee, risk adjusted maintenance, Level 4 2008 MOO IVANNA S [facility] Case Management, each 15 minutes 2008 MOO IVANNA S [facility] Audiogram (Screening) Audiogram (Screening) 82502 2008 SIDNEY DICKERSON [facility] Audiometry Group Testing Audiometry Group Testing 77072 2008 SIDNEY DICKERSON [facility] Coordinated care fee, risk adjusted maintenance, Level 4 2008 MOO IVANNA S [facility] Case Management, each 15 minutes 2008 MOO IVANNA S [facility] Physical Therapy: ___ Se ion Segments, 15 Minutes Each Physical Therapy: ___ Session Segments, 15 Minutes Each 23891 2008 ELVIA JEFFERS x 20 mins [facility] Physical Therapy: ___ Se ion Segments, 15 Minutes Each Physical Therapy: ___ Session Segments, 15 Minutes Each 80809 2008 ELVIA JEFFERS x 30 mins [facility] Phys Therapy Education Self Care Training - Per 15 Minutes Phys Therapy Education Self Care Training - Per 15 Minutes 36708 2008 HARVEY KONG [facility] Physical Therapy: ___ Se ion Segments, 15 Minutes Each Physical Therapy: ___ Session Segments, 15 Minutes Each 67390 2008 NORAH JIMENEZ Aquatic Exercises Aquatic Exercises 46702 03/15 NORAH JIMENEZ Phys Therapy Education Self Care Training - Per 15 Minutes Phys Therapy Education Self Care Training - Per 15 Minutes 04296 2008 HARVEY KONG [facility] Phys Therapy Education Self Care Training - Per 15 Minutes Phys Therapy Education Self Care Training - Per 15 Minutes 57861 2008 HARVEY KONG Phys Therapy Education Self Care Training - Per 15 Minutes Phys Therapy Education Self Care Training - Per 15 Minutes 59570 2008 HARVEY OKNG [facility] Coordinated care fee, risk adjusted maintenance, [...] Self Care Training - Per 15 Minutes 41244 2008 HARVEY KONG Aquatic Exercises Aquatic Exercises 10982 02/28 NORAH JIMENEZ V [facility] Phys Therapy Education Self Care Training - Per 15 Minutes Phys Therapy Education Self Care Training - Per 15 Minutes 99613 2008 HARVEY KONG Aquatic Exercises Aquatic Exercises 52107 02/16 RENEE GREENWOOD [facility] Physical Medicine Physical Therapy Evaluation Physical Medicine Physical Therapy Evaluation 28382 2008 LATONYA MARADIAGA [facility] Coordinated care fee, risk adjusted maintenance, Level 4 2008 LONG, IVANNA S DoD Case Management, each 15 minutes 2008 LONG, IVANNA S DoD Coordinated care fee, risk adjusted maintenance, Level 4 2008 LONG, IVANNA S DoD Case Management, each 15 minutes 2008 LONG, IVANNA S DoD Occupational Therapy Re-Evaluation Occupational Therapy Re-Evaluation 90668 2008 DELETE_IEN_MEREDITH STAFFORD [facility] PT A e ment Kinetic Training PT Assessment Kinetic Training 85284 2008 PAULO CORTÉS DoD Coordinated care fee, risk adjusted maintenance, Level 3 2008 LONG, IVANNA S DoD Case Management, each 15 minutes 2008 LONG, IVANNA S DoD PT A e ment Kinetic Training PT Assessment Kinetic Training 43556 2008 LILI MONTES [facility] PT A e ment Kinetic Training PT Assessment Kinetic Training 84520 2008 LILI MONTES PT A e ment Kinetic Training PT Assessment Kinetic Training 20430 2008 LILI MONTES Psychometric Neuropsych Testing Battery Admin By Physician Psychometric Neuropsych Testing Battery Admin By Physician 84331 2008 MONICA WATSON PT A e ment Kinetic Training PT Assessment Kinetic Training 57708 2008 PAULO CORTÉS PT A e ment Kinetic Training PT Assessment Kinetic Training 49100 2008 PAULO CORTÉS PT A e ment Kinetic Training PT Assessment Kinetic Training 72388 2008 PAULO CORTÉS Psychometric Neuropsych Testing Battery Admin By Physician Psychometric Neuropsych Testing Battery Admin By Physician 95409 2008 JATINDER GARCIA Psychometric Neuropsych Testing Battery Admin By Medical Consultant Psychometric Neuropsych Testing Battery Admin By Medical Consultant 10026 2008 JATINDER GARCIA Exercises A isted Exercises For ROM Exercises Assisted Exercises For ROM 37904 2008 JOHN_MEREDITH MISHRA Training And Self-Care Skills Training And Self-Care Skills 72251 2008 MEREDITH LOMELI Occupational Therapy Evaluation Occupational Therapy Evaluation 40951 2008 MEREDITH LOMELI Coordinated care fee, risk adjusted maintenance, Level 3 2008 IVANNA CORTÉS S [facility] Case Management, each 15 minutes 2008 IVANNA CORTÉS S Martín Psychologic Testing And Report Administered By Computer Psychologic Testing And Report Administered By Computer 22613 2008 JATINDER GARCIA Psychometric Neuropsych Testing Battery Admin By Medical Consultant Psychometric Neuropsych Testing Battery Admin By Medical Consultant 46695 2008 JATINDER GARCIA [facility] Psychiatric Evaluation Comprehensive Examination Psychiatric Evaluation Comprehensive Examination 91008 2008 MONICA WATSON [facility] Screening Test Of Visual Acuity, Quantitative, Bilateral Screening Test Of Visual Acuity, Quantitative, Bilateral 67335 2008 SIERRA DE LA ROSA [facility] Coordinated care fee, risk adjusted maintenance, Level 3 2007 LONGLYDIAA S DoD Case Management, each 15 minutes 2007 LYDIA CORTÉSA S [facility] Audiometry Group Testing Audiometry Group Testing 59416 2007 PAL MCLEOD [facility] Immunization Admin By Intranasal / Oral Route One Vaccine Immunization Admin By Intranasal / Oral Route One Vaccine 81134 2007 KAREEN ARMENDARIZ [facility] Influenza Virus Vaccine Live Intranasal 2007 KALA KAREEN [facility] Skin Test Anergy Tuberculin Intradermal Skin Test Anergy Tuberculin Intradermal 15698 2007 KAREEN ARMENDARIZ [facility] Venipuncture Venipuncture [address]Supervised Specimen Handling / Transfer: Office To Lab -Supervised Specimen Handling / Transfer: Office To Lab [address]Supervised Specimen Handling / Transfer: Office To Lab -Supervised Specimen Handling / Transfer: Office To Lab 81826 2007 TAMIA BALTAZAR [facility] Case Management, each 15 minutes 2007 LONG, IVANNA S [facility] Case Management, each 15 minutes 2007 LONG, IVANNA S [facility] Case Management, each 15 minutes 2007 LONG, IVANNA S [facility] Coordinated care fee, risk adjusted maintenance 2007 LONG, IVANNA S [facility] Case Management, each 15 minutes 2007 LONG, IVANNA S [facility] Case Management, each 15 minutes 2007 LONG, IVANNA S [facility] Case Management, each 15 minutes 2007 LONG, IVANNA S [facility] Case Management, each 15 minutes 2007 LONG, IVANNA S [facility] Case Management, each 15 minutes 2007 LONG, IVANNA S [facility] Case Management, each 15 minutes 2007 LONG, IVANNA S [facility] Case Management, each 15 minutes 2007 LONG, IVANNA S [facility] Case Management, each 15 minutes 2007 LONG, IVANNA S [facility] Treatment Of Swallowing Dysfunction Treatment Of Swallowing Dysfunction 38733 2007 ODALIS RODRIGUEZ [facility] Physical Therapy Neuromuscular Re-education Physical Therapy Neuromuscular Re-education 53912 2007 JAZZ CARTER [facility] Treatment Of Swallowing Dysfunction Treatment Of Swallowing Dysfunction 19460 2007 ODALIS RODRIGUEZ [facility] Training And Self-Care Skills Training And Self-Care Skills 78018 2007 JAZZ CARTER [facility] Medical Nutrition Therapy Re-a e ment, Intervention Medical Nutrition Therapy Re-assessment, Intervention 39627 2007 YOLANDA CEDEÑO [facility] Training And Self-Care Skills Training And Self-Care Skills 68067 2007 JAZZ CARTER [facility] Physical Therapy Neuromuscular Re-education Physical Therapy Neuromuscular Re-education 53184 2007 JAZZ CARTER. [facility] Social History Combined list of available smoking, tobacco, and other social history 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 Social History Type Response Date Comment Sour e Tobacco smoking status NHIS VA-TOBACCO NEVER USED OTHER TYPE 03/29/2025 [facility] History of tobacco use VA-TOBACCO USE EVERY DAY CIGARETTES 03/29/2025 [facility] History of tobacco use [place]-TOBACCO FORMER USER 03/18/2024 [facility] History of tobacco use VA-TOBACCO USER EVERY DAY 03/18/2023 [facility] of [facility]/06/2022 [facility] History of tobacco use [facility] AD[facility] TOBACCO SCREEN YES 11/06/2022 [facility] History of tobacco use LIFETIME NON-USER OF TOBACCO 01/17/2011 [facility] History of tobacco use LIFETIME NON-USER OF TOBACCO 03/04/2008 [facility] This section is an empty social history section. [facility] Plan of Care List of future care activities from Department of 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 Additional future care activities may be listed in the Assessment and Plan section. Date/Time Care Activity Care Activity Detail Facili ty 07/01/2025 AMBULATORY - MEDICINE AMBULATORY - MEDICI NE [facility]
--- NOTE | 2025-05-15 17:32 | ED_ITS ---
HPI - General Adult General Chief complaint: Upper Respiratory Infection Stated complaint: dizzy, weakness Time Seen by Provider: 05/15/25 17:14 History of Present Illness HPI narrative: Britt is a 39M with a PMH of poor dentition, and CVA that presented back to the ED. He has continued dental pain despite taking more Excedrin than recommended. He also has fatigue, lightheadedness, nausea but no lightheadedness, and no chest pain. Related Data Allergies Allergy/AdvReac Type Severity Reaction Status Date / Time No Known Allergies Allergy Verified 05/15/25 17:13 Review of Systems 2 Review of Systems: All systems reviewed & are unremarkable except as noted in HPI and below [facility] Past Medical History Medical History AVM (arteriovenous malformation) brain Seizures AVM (arteriovenous malformation) History of stroke Exam 2 Const: General: cooperative, healthy appearing, comfortable, no acute distress, well developed, alert, awake and Physically active O rientation/consciousness: oriented to person, oriented to place and oriented to time HENMT: Head: normal to inspection, normocephalic and atraumatic Ears: h earing grossly normal bilaterally and external ears normal Face/Nose/Sinus: N ormal external nose present Other: poor dentition Eyes: General: appearance normal, both eyes and all related structures P eriorbital: periorbital findings normal Sclera: sclerae normal Pupils: E qual, round and reactive pupils present Neck: Neck: normal visual inspection Chest: Chest palpation & inspection: normal inspection of the chest Resp: Effort & Inspection: normal respiratory effort, able to speak in complete sentences and no respiratory distress Auscultation: clear to auscultation bilaterally Cardio: Jugular venous distension: no JVD Rate: regular rate Rhythm: r egular rhythm GI: Inspection: normal to inspection GI Palp: Yes Soft to palpation A uscultation: normal bowel sounds Skin: General skin exam: normal color and no rashes or lesions noted Neuro: General: oriented to person, oriented to place and oriented to time Cranial nerves: Yes Equal, round and reactive pupils present Extrem: General: normal to inspection Course Course Emergency Course: Ordered labs, fluids, zofran,and toradol EKG showed NSR with a rate of 73, normal axis, no ST elevation/depression Labs were largely unremarkable Vital Signs Vital signs: Vital Signs Temperature 97.9 F 05/15/25 17:13 Pulse Rate 84 05/15/25 17:13 Respiratory Rate 20 05/15/25 17:13 Blood Pressure 150/86 H 05/15/25 17:13 Pulse Oximetry 97 05/15/25 17:13 Oxygen Delivery Room Air 05/15/25 17:13 Temperature 97.9 F 05/15/25 17:13 Pulse Rate 78 05/15/25 19:11 Respiratory Rate 18 05/15/25 19:11 Blood Pressure 122/89 05/15/25 19:11 Pulse Oximetry 99 05/15/25 19:11 Oxygen Delivery Room Air 05/15/25 19:11 Medical Decision Making Vital Signs Vital Signs: Vital Signs Temperature 97.9 F 05/15/25 17:13 Pulse Rate 84 05/15/25 17:13 Respiratory Rate 20 05/15/25 17:13 Blood Pressure 150/86 H 05/15/25 17:13 Pulse Oximetry 97 05/15/25 17:13 Oxygen Delivery Room Air 05/15/25 17:13 Temperature 97.9 F 05/15/25 17:13 Pulse Rate 78 05/15/25 19:11 Respiratory Rate 18 05/15/25 19:11 Blood Pressure 122/89 05/15/25 19:11 Pulse Oximetry 99 05/15/25 19:11 Oxygen Delivery Room Air 05/15/25 19:11 Lab Data 05/15/25 17:43 05/15/25 17:43 Labs: Lab Results 05/15/25 05/15/25 Range/Units 17:32 17:43 WBC 7.8 (4.8-10.8) K/mm3 RBC 4.70 (4.70-6.10) M/mm3 Hgb 14.9 (14.0-18.0) g/dL Hct 43.8 (40.0-54.0) % MCV 93.2 (78.0-102.0) fL MCH 31.7 H (27.0-31.0) pg MCHC 34.0 (32-36) g/dL RDW 12.2 (11.6-14.4) % Plt Count 195 (150-420) K/mm3 MPV 10.2 (8.7-11.0) fl Immature Gran % (Auto) 0.1 H (0.0-0.0) % Neut % (Auto) 64.9 (50.0-70.0) % Lymph % (Auto) 25.2 (18.0-42.0) % [place] % (Auto) 7.4 (2.0-11.0) % Eos % (Auto) 1.8 (1.0-6.0) % Baso % (Auto) 0.6 (0.0-1.0) % Lymph # (Auto) 1.95 (1.10-4.50) K/mm3 [place] # (Auto) 0.57 (0.10-0.90) K/mm3 Eos # (Auto) 0.14 (0.02-0.50) K/mm3 Baso # (Auto) 0.05 (0.00-0.10) K/mm3 Abs Immat Gran (auto) 0.01 H (0.00-0.00) K/mm3 Absolute Neuts (auto) 5.03 (1.70-7.20) K/mm3 Absolute Nucleated RBC 0.00 (0.00-0.00) K/mm3 Nucleated RBC % 0.0 (0-0.0) % Sodium 140 (137-145) mmol/L Potassium 3.7 (3.4-5.0) mmol/L Chloride 106 (98-107) mmol/L Carbon Dioxide 27 (22-30) mmol/L Anion Gap 7 (4-12) mmol/L BUN 14 (9-20) mg/dL Creatinine 1.07 (0.7-1.3) mg/dL Estim Creat Clear Calc 94 ml/min Estimated GFR > 60 (59 - ) Glucose 114 H (65-110) mg/dL Calculated Osmolality 291 (285-295) mOsm/kg Calcium 9.3 (8.4-10.2) mg/dL Magnesium 2.1 (1.6-2.3) mg/dL Total Bilirubin 0.8 (0.2-1.3) mg/dL AST 29 (17-59) U/L ALT 23 (6-50) U/L Alkaline Phosphatase 71 (38-126) U/L Troponin I < 0.012 (0.000-0.034) ng/mL NT-Pro-B Natriuret Pep < 20 (19.9-100) pg/mL Total Protein 7.3 (6.3-8.2) g/dL Albumin 4.6 (3.5-5.1) g/dL TSH 0.442 L (0.465-4.680) uIU/mL Urine Color Light yellow (Yellow) Urine Appearance Clear (Clear) Urine pH 6.5 (5.0-8.0) Ur Specific [place] <= 1.005 L (1.010-1.020) Urine Protein Negative (Negative) Urine Glucose (UA) Negative (Negative) Urine Ketones Negative (Negative) Ur Blood (Man) Negative (Negative) Urine Nitrate Negative (Negative) Urine Bilirubin Negative (Negative) Urine Urobilinogen 0.2 (0.2-1.0) mg/dL Leukocyte Esterase Rfl Negative (Negative) [facility]ADNA/UL Discharge Plan Discharge Clinical Impression: URI (upper respiratory infection) Patient Disposition: Home Condition: Stable Instructions: Antibiotic Form Additional Instructions: Please finish the antibiotics from your previous visit for your dental infection. Patient Language: Bhutanese Prescriptions: No Action amoxicillin-pot clavulanate 875-125 mg tablet 1 tablet PO BID 10 Days Qty: 20 0RF clindamycin HCl 300 mg capsule 300 mg PO TID 10 Days Qty: 30 0RF ibuprofen 800 mg tablet 800 mg PO TID PRN (Reason: pain) Qty: 30 0RF orphenadrine citrate 100 mg tablet extended release 100 mg PO BID PRN (Reason: pain) Qty: 20 0RF methylprednisolone [Medrol (Yariel)] 4 mg tablets,dose pack See Rx Instructions .ROUTE .COMPLEX Qty: 21 0RF Rx Instructions: orally per package directions amoxicillin 500 mg tablet 500 mg PO TID Qty: 30 0RF amoxicillin-pot clavulanate 875-125 mg tablet 1 tablet PO Q12H Qty: 10 0RF clindamycin HCl 300 mg capsule 300 mg PO Q8H Qty: 20 0RF amoxicillin-pot clavulanate [Augmentin] 500-125 mg tablet 1 tablet PO TID Qty: 30 0RF Follow-up/Referrals: Luis Benz MD [Primary Care Provider] -
--- NOTE | 2025-05-15 17:32 | ECG_ITS ---
Test Date: 2025-05-15 17:44:00 Measurements Intervals [place] Rate: 73 P: 70 MO: 165 QRS: 56 QRSD: 82 T: 60 QT: 383 QTc: 423 Interpretive Statements SINUS RHYTHM WITH SINUS ARRHYTHMIA POSSIBLE LEFT ATRIAL ENLARGEMENT BASELINE ARTIFACT- I, II, III, AVR, AVL, AVF, V1-V6 BORDERLINE ECG No previous ECG available for comparison Electronically Signed On 05-15-2025 20:21:02 CDT by Pasha Green D.O.
[2025-05-15 17:37] VITALS: BP 115/79; PULSE 69; RESP 17; O2SAT 99
[2025-05-15] MEDS: KETOROLAC 15 MG/ML VIAL (*BKC) IV PUSH (17:40)
[2025-05-15] MEDS: SODIUM CHLORIDE 0.9% IV 1,000 ML 999 ML IV CONT (17:40)
[2025-05-15] MEDS: ONDANSETRON INJ 4 MG/2 ML VIAL IV PUSH (17:41)
[2025-05-15 17:48] LABS: Hematocrit 43.8 % (40.0-54.0); Hemoglobin 14.9 g/dL (14.0-18.0); Immature Granulocyte Percent A 0.1 % (0.0-0.0); Lymphocytes Absolute Auto 1.95 K/mm3 (1.10-4.50); Mean Corpuscular HGB Conc 34.0 g/dL (32-36); Mean Corpuscular Hemoglobin 31.7 pg (27.0-31.0); Mean Corpuscular Volume 93.2 fL (78.0-102.0); Nucleated Red Blood Cells Absolute Auto 0.00 K/mm3 (0.00-0.00); Nucleated Red Blood Cells Perc 0.0 % (0-0.0); Platelet Count Result 195 K/mm3 (150-420); Red Blood Count 4.70 M/mm3 (4.70-6.10); White Blood Count 7.8 K/mm3 (4.8-10.8)
--- OUTSIDE RECORDS SUMMARY | 2025-05-15 17:57 | XMS_ITS | Continuity of Care Document ---
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 It does not include entries that were removed or entered in error. Problem Status Onset Date Problem Type Date of Resolution Comments Source Adjustment disorder with depressed mood (SNOMED CT 29725243) Active Condition [facility] Cerebral aneurysm, nonruptured (ICD-9-CM 437.3) Active Condition [facility] Congenital arteriovenous malformation Active Condition Jan 17, 2011 Entered By: CHIOMA QUAN Comment: 12/2007 surgery in [facility] Diplopia * (ICD-9-CM 368.2) Active Condition [facility] Myopia Active Condition [facility] Pain of joint of knee (SNOMED CT 0705144474) Active Condition [facility] Pneumonia, organism unspecified Active Condition Jan 17, 2011 Entered By: CHIOMA QUAN Comment: August 2010, received pneumovax vaccineMar 08, 2011 Entered By: CHIOMA QUAN Comment: 02/20/11 rul and rml [facility] Sleep disturbances Active Condition [facility] Tinnitus Active Condition [facility] Vitamin D Deficiency (SCT 34507054) Active Condition [facility] Chest Pain * (ICD-9-CM 786.50) Inactive Condition 03/18/2023 [facility] Cyst, ganglion Inactive Condition 03/18/2023 Jan 17, 2011 Entered By: CHIOMA QUAN Comment: right wrist [facility] Encounters for unspecified Administrative Purpose (ICD-9-CM V68.9) Inactive Condition 03/18/2023 [facility] NEUTROPENIA, unspecified Inactive Condition 03/18/2023 [facility] Vitamin D Deficiency Inactive Condition 03/18/2023 [facility] visit for: services physical separation Active [...] DoD visit for: administrative purpose Inactive Condition [facility] Patient Counseling: Active Condition Do D visit [...] Condition DoD difficulty swallowing (dysphagia) Active Condition [facility] Patient Counseling: Inquiry & Counseling Active Condition DoD INTRACEREBRAL HEMORRHAGE Active Condition DoD BACTEREMIA Active Condition 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 Diagnosis: ICD-10-CM Z00.00 Encntr for general adult medical exam w/o abnormal findings Active Diagnosis [facility] Diagnosis: ICD-10-CM Q27.30 Arteriovenous malformation, site unspecified Active Diagnosis [facility] Medications Combined list of outpatient medications [...] WHILE WEARING PATCH. TRANSD ERMAL ACTIVE 03/30/2026 [id number] AARON KENNEDY 2024 28 [facility] NICOTINE POLACRILEX 2MG MINI LOZENGE DISSOLVE 1 LOZENGE BY MOUTH EVERY 4 HOURS NEEDED .DO NOT SMOKE WHILE USING THIS MEDICATI ON. ORAL ACTIVE 03/30/2026 [id number] 5 AARON KENNEDY 2024 162 [facility] Allergies, Adverse Reactions, Alerts Combined list of allergies 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 It does not include entries that were removed or entered in error. Substance Category Reaction Severity Reaction type Status Date Reported Comments Source ADHESIVE TAPE Propensity to adverse reaction (finding) Eruption active 1 [facility] OTHER Drug allergy (disorder) Unknown active 8 [facility] Immunizations Combined list of available immunizations from the 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 Immunization Series Date Given Administered By Site Reaction Lot Number CVX Code Drug Public Health Informatician Status Comments Source PNEUMOCOCCAL POLYSACCHARID E PPV23 2022 [facility]RIEN [facility]ER[facility] H R RIGHT DELTO ID [id number] 33 complet ed [facility] TDAP 2022 [facility] H R LEFT DELTO ID [id number] 115 complet ed [facility] TDAP 5 2017 115 complet ed HISTORICA L INFORMATI ON - FROM OTHER [facility] INFLUENZA, UNSPECIFIED FORMULATION 2011 88 complet ed [facility] INFLUENZA, UNSPECIFIED FORMULATION 2010 88 complet ed [facility] tuberculin skin test; purified protein derivative solution, intradermal 0 2009 KAREEN ARMENDARIZ [id number] [place] 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) complet ed tuberculi n skin test; purified protein derivativ e solution, intraderm al DoD tuberculin skin test; purified protein derivative solution, intradermal 1 2009 JAZZ DAVIS [id number] 96 [facility] ([facility] complet ed tuberculi n skin test; purified protein derivativ e solution, intraderm al DoD tuberculin skin test; purified protein derivative solution, intradermal 1 2009 CIERA FOREMAN [id number] 96 [facility] ([facility]) complet ed tuberculi n skin test; purified protein derivativ e solution, intraderm al DoD tuberculin skin test; purified protein derivative solution, intradermal 1 2009 WILTON SILVA [id number] 96 [facility] PASTE[facility] ([facility]) complet ed tuberculi n skin test; purified protein derivativ e solution, intraderm al DoD typhoid Vi capsular polysaccharid e vaccine 1 2009 WILTON SILVA [id number] [facility] ([facility]) complet ed typhoid Vi capsular polysacch aride vaccine DoD Novel Influenza-H1N 1-09, live virus for nasal administratio n 1 2009 WILTON SILVA [id number] [employer] (MED) complet ed Novel Influenza -[id number], live virus for nasal administr ation DoD influenza virus vaccine, live, attenuated, for intranasal use 0 2008 UNK 111 Unknown (UNK) comple t ed influenza virus vaccine, live, attenuate d, for intranasa l use DoD influenza virus vaccine, live, attenuated, for intranasal use 1 2008 SERA PRASAD [id number] 111 [employer] (MED) complet ed influenza virus vaccine, live, attenuate d, for intranasa l use DoD tuberculin skin test; purified protein derivative solution, intradermal 1 2007 KAREEN ARMENDARIZ [id number] 96 [place] () complet ed tuberculi n skin test; purified protein derivativ e solution, intraderm al DoD influenza virus vaccine, live, attenuated, for intranasal use 1 2007 KAREEN ARMENDARIZ [id number] 111 [employer] (MED) complet ed influenza virus vaccine, live, attenuate d, for intranasa l use DoD influenza virus vaccine, unspecified formulation 0 2006 UNK 88 Unknown (UNK) comple t ed influenza virus vaccine, unspecifi ed formulati on DoD tuberculin skin test; purified protein derivative solution, intradermal 1 2006 JAZZ DAVIS [id number] 96 [facility] (PD) complet ed tuberculi n skin test; purified protein derivativ e solution, intraderm al DoD influenza virus vaccine, live, attenuated, for intranasal use 1 2006 PASQUALE SINHA [id number] 111 [employer] (MED) complet ed influenza virus vaccine, live, attenuate d, for intranasa l use DoD hepatitis B vaccine, adult dosage 3 2006 UNK 43 Unknown (UNK) comple t ed hepatitis B vaccine, adult dosage DoD hepatitis A and hepatitis B vaccine 3 2006 ROQUE WHITNEY [id number] [facility] ([facility] complet ed hepatitis A [...] L INFORMATI ON - FROM OTHER REGISTRY, [facility] HEP B, ADOLESCENT OR PEDIATRIC 2 1997 08 complet ed HISTORICA L INFORMATI ON - FROM OTHER REGISTRY, [facility] HEP B, ADOLESCENT OR PEDIATRIC 1 1997 08 complet ed HISTORICA L INFORMATI ON - FROM OTHER REGISTRY, [facility] DTP 4 1991 01 complet ed HISTORICA L INFORMATI ON - [facility]IB, UNSPECIFIED FORMULATION 1 1991 17 complet ed HISTORICA L INFORMATI ON - FROM OTHER REGISTRY, [facility] MMR 2 1991 03 complet ed HISTORICA L INFORMATI ON - FROM OTHER REGISTRY, [facility] OPV, TRIVALENT 4 1991 02 complet ed HISTORICA L INFORMATI ON - FROM OTHER REGISTRY, [facility] DTP 3 1989 complet ed HISTORICA L INFORMATI ON - FROM OTHER REGISTRY, [facility] OPV, TRIVALENT 3 1989 02 complet ed HISTORICA L INFORMATI ON - FROM OTHER REGISTRY, [facility] MMR 1 1988 03 complet ed HISTORICA L INFORMATI ON - FROM OTHER REGISTRY, [facility] DTP 3 1987 complet ed HISTORICA L INFORMATI ON - FROM OTHER REGISTRY, [facility] OPV, TRIVALENT 3 1987 02 complet ed HISTORICA L INFORMATI ON - FROM OTHER REGISTRY, [facility] DTP 2 1987 complet ed HISTORICA L INFORMATI ON - FROM OTHER REGISTRY, [facility] OPV, TRIVALENT 2 1987 complet ed HISTORICA L INFORMATI ON - FROM OTHER REGISTRY, [facility] DTP 1 1987 complet ed HISTORICA L INFORMATI ON - FROM OTHER REGISTRY, [facility] OPV, TRIVALENT 1 1987 complet ed HISTORICA L INFORMATI ON - FROM OTHER REGISTRY, [facility] Results Combined list of recent [...] Mar 29, 2025 08:53 AM Reporting Lab: [facility] [address] [place] [phone] Performing Lab: [facility] [address] [place] [phone] [facility] CBC ERYTHROCYTES [#/VOLUME] IN BLOOD BY AUTOMATED COUNT 4.83 10*6/u L 4.10 - 5.70 03/29 Specimen Type: BLOOD No comment entered. Ordering Provider: Nicanor KENNEDY Report Released Date/Time: Mar 29, 2025 08:53 AM Reporting Lab: [facility] [address] [place] [phone] Performing Lab: [address] [address] [facility] CBC HEMOGLOBIN [MASS/VOLUME ] IN BLOOD 14.9 g/dL 13.1 - 16.8 03/29 Specimen Type: BLOOD No comment entered. Ordering Provider: Nicanor KENNEDY Report Released Date/Time: Mar 29, 2025 08:53 AM Reporting Lab: [address] [address] Performing Lab: [address] [place] [address] [facility] CBC HEMATOCRIT [VOLUME FRACTION] OF BLOOD 44.7 38.2 - 48.4 03/29 Specimen Type: BLOOD No comment entered. Ordering Provider: Nicanor KENNEDY Report Released Date/Time: Mar 29, 2025 08:53 AM Reporting Lab: [place] [phone] Performing Lab: [place] [phone] [place] [address] [facility] CBC MCV [ENTITIC VOLUME] BY AUTOMATED COUNT 92.5 fL 80.0 - 100.0 03/29 Specimen Type: BLOOD No comment entered. Ordering Provider: Nicanor KENNEDY Report Released Date/Time: Mar 29, 2025 08:53 AM Reporting Lab: [place] [phone] Performing Lab: [place] [phone] [place] [address] [facility] CBC MCH [ENTITIC MASS] BY AUTOMATED COUNT 30.8 pg 27.0 - 34.0 03/29 Specimen Type: BLOOD No comment entered. Ordering Provider: Nicanor KENNEDY Report Released Date/Time: Mar 29, 2025 08:53 AM Reporting Lab: [address] [phone] Performing Lab: [address] [phone] [place] [address] [facility] CBC MCHC [MASS/VOLUME ] BY AUTOMATED COUNT 33.3 g/dL 33.0 - 36.0 03/29 Specimen Type: BLOOD No comment entered. Ordering Provider: Nicanor KENNEDY Report Released Date/Time: Mar 29, 2025 08:53 AM Reporting Lab: [place] [phone] Performing Lab: [address] [phone] [place] [address] [facility] CBC PLATELETS [#/VOLUME] IN BLOOD BY AUTOMATED COUNT 223 10*3/u L 150 - 400 03/29 Specimen Type: BLOOD No comment entered. Ordering Provider: Nicanor KENNEDY Report Released Date/Time: Mar 29, 2025 08:53 AM Reporting Lab: [facility] [address] [place] [phone] Performing Lab: [address] [phone] [facility] CBC PLATELET MEAN VOLUME [ENTITIC VOLUME] IN BLOOD BY AUTOMATED COUNT 10.6 fL 7.5 - 11.2 03/29 Specimen Type: BLOOD No comment entered. Ordering Provider: Nicanor KENNEDY Report Released Date/Time: Mar 29, 2025 08:53 AM Reporting Lab: [place] [phone] Performing Lab: [place] [phone] [facility] CBC ERYTHROCYTE DISTRIBUTION WIDTH [RATIO] BY AUTOMATED COUNT 12.0 11.8 - 15.1 03/29 Specimen Type: BLOOD No comment entered. Ordering Provider: Nicanor KENNEDY Report Released Date/Time: Mar 29, 2025 08:53 AM Reporting Lab: [place] [phone] Performing Lab: [place] [phone] [facility] CBC LYMPHOCYTES/ 100 LEUKOCYTES IN BLOOD BY AUTOMATED COUNT 37 03/29 Specimen Type: BLOOD No comment entered. Ordering Provider: Nicanor KENNEDY Report Released Date/Time: Mar 29, 2025 08:53 AM Reporting Lab: [facility] [address] [place] [address] Performing Lab: [place] [phone] [facility] CBC MONOCYTES/10 0 LEUKOCYTES IN BLOOD BY AUTOMATED COUNT 10 03/29 Specimen Type: BLOOD No comment entered. Ordering Provider: Nicanor KENNEDY Report Released Date/Time: Mar 29, 2025 08:53 AM Reporting Lab: [facility] [address] [place] [phone] Performing Lab: [place] [phone] [facility] CBC NEUTROPHILS/ 100 LEUKOCYTES IN BLOOD BY AUTOMATED COUNT 48 03/29 Specimen Type: BLOOD No comment entered. Ordering Provider: Nicanor KENNEDY Report Released Date/Time: Mar 29, 2025 08:53 AM Reporting Lab: [place] [phone] Performing Lab: [address] [facility] CBC EOSINOPHILS/ 100 LEUKOCYTES IN BLOOD BY AUTOMATED COUNT 4 03/29 Specimen Type: BLOOD No comment entered. Ordering Provider: Nicanor KENNEDY Report Released Date/Time: Mar 29, 2025 08:53 AM Reporting Lab: [facility] [address] [place], [place] [phone] Performing Lab: [address] [facility] CBC BASOPHILS/10 0 LEUKOCYTES IN BLOOD BY AUTOMATED COUNT 1 03/29 Specimen Type: BLOOD No comment entered. Ordering Provider: Nicanor KENNEDY Report Released Date/Time: Mar 29, 2025 08:53 AM Reporting Lab: [place] [id number] Performing Lab: [address] [facility] CBC LYMPHOCYTES [#/VOLUME] IN BLOOD BY AUTOMATED COUNT 1.99 10*3/u L 0.77 - 4.50 03/29 Specimen Type: BLOOD No comment entered. Ordering Provider: Nicanor KENNEDY Report Released Date/Time: Mar 29, 2025 08:53 AM Reporting Lab: [facility] [address] [place] [address] Performing Lab: [facility] [address] [place] [phone] [facility] CBC MONOCYTES [#/VOLUME] IN BLOOD BY AUTOMATED COUNT 0.52 10*3/u L 0.19 - 0.80 03/29 Specimen Type: BLOOD No comment entered. Ordering Provider: Nicanor KENNEDY Report Released Date/Time: Mar 29, 2025 08:53 AM Reporting Lab: [address] [phone] Performing Lab: [address] [address] [facility] CBC NEUTROPHILS [#/VOLUME] IN BLOOD BY AUTOMATED COUNT 2.62 10*3/u L 2.10 - 8.00 03/29 Specimen Type: BLOOD No comment entered. Ordering Provider: Nicanor KENNEDY Report Released Date/Time: Mar 29, 2025 08:53 AM Reporting Lab: [place] [phone] Performing Lab: [address] [address] [facility] CBC EOSINOPHILS [#/VOLUME] IN BLOOD BY AUTOMATED COUNT 0.23 10*3/u L 0.00 - 0.60 03/29 Specimen Type: BLOOD No comment entered. Ordering Provider: Nicanor KENNEDY Report Released Date/Time: Mar 29, 2025 08:53 AM Reporting Lab: [address] [phone] Performing Lab: [address] [address] [facility] CBC BASOPHILS [#/VOLUME] IN BLOOD BY AUTOMATED COUNT 0.07 10*3/u L 0.00 - 0.20 03/29 Specimen Type: BLOOD No comment entered. Ordering Provider: Nicanor KENNEDY Report Released Date/Time: Mar 29, 2025 08:53 AM Reporting Lab: [place] [phone] Performing Lab: [facility] [address] [facility] [phone] [facility] COMPREHENSI VE METABOLIC PANEL CREATININE [MASS/VOLUME ] IN SERUM OR PLASMA 0.94 mg/dL 0.7 - 1.3 03/29 Specimen Type: PLASMA Comment: No hemolysis noted. Ordering Provider: Nicanor KENNEDY Report Released Date/Time: Mar 29, 2025 08:53 AM Reporting Lab: [address] [phone] Performing Lab: [address] [phone] [facility] COMPREHENSI VE METABOLIC PANEL UREA NITROGEN [MASS/VOLUME ] IN SERUM OR PLASMA 16.7 mg/dL 9.0 - 25.0 03/29 Specimen Type: PLASMA Comment: No hemolysis noted. Ordering Provider: Nicanor KENNEDY Report Released Date/Time: Mar 29, 2025 08:53 AM Reporting Lab: [facility] [address] [place] [phone] Performing Lab: [address] [address] [facility] COMPREHENSI VE METABOLIC PANEL GLUCOSE [MASS/VOLUME ] IN SERUM OR PLASMA 97 mg/dL 72 - 99 03/29 Specimen Type: PLASMA Comment: No hemolysis noted. Ordering Provider: Nicanor KENNEDY Report Released Date/Time: Mar 29, 2025 08:53 AM Reporting Lab: [facility] [address] [place] [phone] Performing Lab: [address] [phone] [facility] COMPREHENSI VE METABOLIC PANEL SODIUM [MOLES/VOLUM E] IN SERUM OR PLASMA 139 meq/L 136 - 145 03/29 Specimen Type: PLASMA Comment: No hemolysis noted. Ordering Provider: Nicanor KENNEDY Report Released Date/Time: Mar 29, 2025 08:53 AM Reporting Lab: [address] [address] Performing Lab: [facility] [address] [facility] [phone] [facility] COMPREHENSI VE METABOLIC PANEL POTASSIUM [MOLES/VOLUM E] IN SERUM OR PLASMA 4.0 meq/L 3.5 - 5 03/29 Specimen Type: PLASMA Comment: No hemolysis noted. Ordering Provider: Nicanor KENNEDY Report Released Date/Time: Mar 29, 2025 08:53 AM Reporting Lab: [facility] [address] [phone] Performing Lab: [facility] [address] [facility] [address] [facility] COMPREHENSI VE METABOLIC PANEL CHLORIDE [MOLES/VOLUM E] IN SERUM OR PLASMA 106 meq/L 98 - 107 03/29 Specimen Type: PLASMA Comment: No hemolysis noted. Ordering Provider: Nicanor KENNEDY Report Released Date/Time: Mar 29, 2025 08:53 AM Reporting Lab: [facility] [address] [facility] [phone] Performing Lab: [place] [address] [facility] [address] [facility] COMPREHENSI VE METABOLIC PANEL CARBON DIOXIDE, TOTAL [MOLES/VOLUM E] IN SERUM OR PLASMA 24 meq/L 22 - 31 03/29 Specimen Type: PLASMA Comment: No hemolysis noted. Ordering Provider: Nicanor KENNEDY Report Released Date/Time: Mar 29, 2025 08:53 AM Reporting Lab: [facility] [address] [facility] [address] Performing Lab: [facility] [address] [facility] [address] [facility] COMPREHENSI VE METABOLIC PANEL CALCIUM [MASS/VOLUME ] IN SERUM OR PLASMA 9.1 mg/dL 8.4 - 10.4 03/29 Specimen Type: PLASMA Comment: No hemolysis noted. Ordering Provider: Nicanor KENNEDY Report Released Date/Time: Mar 29, 2025 08:53 AM Reporting Lab: [facility] [address] [facility] [address] Performing Lab: [facility] [address] [place] [phone] [facility] COMPREHENSI VE METABOLIC PANEL PROTEIN [MASS/VOLUME ] IN SERUM OR PLASMA 7.2 g/dL 6 - 8.6 03/29 Specimen Type: PLASMA Comment: No hemolysis noted. Ordering Provider: Nicanor KENNEDY Report Released Date/Time: Mar 29, 2025 08:53 AM Reporting Lab: [facility] [address] [place] [phone] Performing Lab: [address] [address] [facility] COMPREHENSI VE METABOLIC PANEL ALBUMIN [MASS/VOLUME ] IN SERUM OR PLASMA 4.5 g/dL 3.4 - 5 03/29 Specimen Type: PLASMA Comment: No hemolysis noted. Ordering Provider: Nicanor KENNEDY Report Released Date/Time: Mar 29, 2025 08:53 AM Reporting Lab: [address] [address] Performing Lab: [address] [address] [facility] COMPREHENSI VE METABOLIC PANEL BILIRUBIN.TO ANTONI [MASS/VOLUME ] IN SERUM OR PLASMA 0.3 mg/dL 0.2 - 1.2 03/29 Specimen Type: PLASMA Comment: No hemolysis noted. Ordering Provider: Nicanor KENNEDY Report Released Date/Time: Mar 29, 2025 08:53 AM Reporting Lab: [facility] [address] [place] [phone] Performing Lab: [address] [address] [facility] COMPREHENSI VE METABOLIC PANEL ALKALINE PHOSPHATASE [ENZYMATIC ACTIVITY/VOL UME] IN SERUM OR PLASMA 83 U/L 40 - 150 03/29 Specimen Type: PLASMA Comment: No hemolysis noted. Ordering Provider: Nicanor KENNEDY Report Released Date/Time: Mar 29, 2025 08:53 AM Reporting Lab: [facility] [address] [place] [phone] Performing Lab: [address] [phone] [place] [address] [facility]OC COMPREHENSI VE METABOLIC PANEL ASPARTATE AMINOTRANSFE RASE [ENZYMATIC ACTIVITY/VOL UME] IN SERUM OR PLASMA 31 U/L 5 - 34 03/29 Specimen Type: PLASMA Comment: No hemolysis noted. Ordering Provider: Nicanor KENNEDY Report Released Date/Time: Mar 29, 2025 08:53 AM Reporting Lab: [address] [phone] Performing Lab: [address] [phone] [place] [address] [facility]OC COMPREHENSI VE METABOLIC PANEL ALANINE AMINOTRANSFE RASE [ENZYMATIC ACTIVITY/VOL UME] IN SERUM OR PLASMA 26 U/L 8 - 40 03/29 Specimen Type: PLASMA Comment: No hemolysis noted. Ordering Provider: Nicanor KENNEDY Report Released Date/Time: Mar 29, 2025 08:53 AM Reporting Lab: [address] [address] Performing Lab: [address] [phone] [place] [address] [facility]OC COMPREHENSI VE METABOLIC PANEL GLOMERULAR FILTRATION RATE/1.73 SQ M.PREDICTED [VOLUME RATE/AREA] IN SERUM, PLASMA OR BLOOD BY CREATININE-B ASED FORMULA (CKD-EPI 2020) 107.1 60 03/29 Specimen Type: PLASMA Comment: No hemolysis noted. Ordering Provider: Nicanor KENNEDY Report Released Date/Time: Mar 29, 2025 08:53 AM Reporting Lab: [address] [address] Performing Lab: [address] [phone] [place] [address] [facility]OC HGA1C HEMOGLOBIN A1C/HEMOGLOB IN.TOTAL IN BLOOD 5.9 4.0 - 6.0 03/29 Specimen Type: BLOOD No comment entered. Ordering Provider: Nicanor KENNEDY Report Released Date/Time: Mar 29, 2025 08:53 AM Reporting Lab: [facility] [address] [place] [phone] Performing Lab: [facility] [address] [place] [phone] [facility] LIPID PANEL (STL) CHOLESTEROL [MASS/VOLUME ] IN SERUM OR PLASMA 199 mg/dL 0 - 200 03/29 Specimen Type: PLASMA Comment: No hemolysis noted. Ordering Provider: Nicanor KENNEDY Report Released Date/Time: Mar 29, 2025 08:53 AM Reporting Lab: [facility] [address] [place] [phone] Performing Lab: [facility] [address] [place], [place] [phone] [facility] LIPID PANEL (STL) TRIGLYCERIDE [MASS/VOLUME ] IN SERUM OR PLASMA 196 mg/dL 0 - 150 03/29 H Specimen Type: PLASMA Comment: No hemolysis noted. Ordering Provider: Nicanor KENNEDY Report Released Date/Time: Mar 29, 2025 08:53 AM Reporting Lab: [facility] [address] [place] [phone] Performing Lab: [facility] [address] [place] [phone] [facility] LIPID PANEL (STL) CHOLESTEROL IN LDL [MASS/VOLUME ] IN SERUM OR PLASMA BY CALCULATION 119 mg/dL 03/29 Specimen Type: PLASMA Comment: No hemolysis noted. Ordering Provider: Nicanor KENNEDY Report Released Date/Time: Mar 29, 2025 08:53 AM Reporting Lab: [facility] [address] [place] [phone] Performing Lab: [facility] [address] [place] [phone] [facility] LIPID PANEL (STL) CHOLESTEROL IN HDL [MASS/VOLUME ] IN SERUM OR PLASMA 41 mg/dL 40 03/29 Specimen Type: PLASMA Comment: No hemolysis noted. Ordering Provider: Nicanor KENNEDY Report Released Date/Time: Mar 29, 2025 08:53 AM Reporting Lab: [facility] [address] [place] [address] Performing Lab: [facility] [address] [place] [address] CBOC TSH W/ REFLEX FT4 (STL) THYROTROPIN [UNITS/VOLUM E] IN SERUM OR PLASMA 1.606 u[IU]/ mL 0.47 - 5 03/29 Specimen Type: PLASMA No comment entered. Ordering Provider: Nicanor KENNEDY Report Released Date/Time: Mar 29, 2025 08:53 AM Reporting Lab: [place] [address] Performing Lab: [address] [facility] VITAMIN D, 25-HYDROXY 25-HYDROXYVI TAMIN D3 [MASS/VOLUME ] IN SERUM OR PLASMA 37.6 ng/mL 30 - 96 03/29 Specimen Type: SERUM No comment entered. Ordering Provider: Nicanor KENNEDY Report Released Date/Time: Mar 29, 2025 08:53 AM Reporting Lab: [facility] [address] [place] [address] Performing Lab: [address] [facility] COMPREHENSI VE METABOLIC PANEL CREATININE [MASS/VOLUME ] IN SERUM OR PLASMA 1.14 mg/dL 0.7 - 1.3 03/18 Specimen Type: PLASMA Comment: No hemolysis noted. Ordering Provider: Nicanor KENNEDY Report Released Date/Time: Mar 18, 2024 10:55 AM Reporting Lab: [facility] [address] [place] [address] Performing Lab: [address] [phone] [place] [address] CBOC COMPREHENSI VE METABOLIC PANEL UREA NITROGEN [MASS/VOLUME ] IN SERUM OR PLASMA 16.6 mg/dL 9.0 - 25.0 03/18 Specimen Type: PLASMA Comment: No hemolysis noted. Ordering Provider: Nicanor KENNEDY Report Released Date/Time: Mar 18, 2024 10:55 AM Reporting Lab: [facility] [address] [place] [phone] Performing Lab: [address] [phone] [place] [address] [facility]OC COMPREHENSI VE METABOLIC PANEL GLUCOSE [MASS/VOLUME ] IN SERUM OR PLASMA 108 mg/dL 72 - 99 03/18 H Specimen Type: PLASMA Comment: No hemolysis noted. Ordering Provider: Nicanor KENNEDY Report Released Date/Time: Mar 18, 2024 10:55 AM Reporting Lab: [address] [phone] Performing Lab: [address] [phone] [place] [address] CBOC COMPREHENSI VE METABOLIC PANEL SODIUM [MOLES/VOLUM E] IN SERUM OR PLASMA 139 meq/L 136 - 145 03/18 Specimen Type: PLASMA Comment: No hemolysis noted. Ordering Provider: Nicanor KENNEDY Report Released Date/Time: Mar 18, 2024 10:55 AM Reporting Lab: [address] [phone] Performing Lab: [address] [phone] [facility] COMPREHENSI VE METABOLIC PANEL POTASSIUM [MOLES/VOLUM E] IN SERUM OR PLASMA 4.9 meq/L 3.5 - 5 03/18 Specimen Type: PLASMA Comment: No hemolysis noted. Ordering Provider: Nicanor KENNEDY Report Released Date/Time: Mar 18, 2024 10:55 AM Reporting Lab: [facility] [address] [place] [phone] Performing Lab: [address] [phone] [facility] COMPREHENSI VE METABOLIC PANEL CHLORIDE [MOLES/VOLUM E] IN SERUM OR PLASMA 106 meq/L 98 - 107 03/18 Specimen Type: PLASMA Comment: No hemolysis noted. Ordering Provider: Nicanor KENNEDY Report Released Date/Time: Mar 18, 2024 10:55 AM Reporting Lab: [address] [phone] Performing Lab: [address] [phone] [place] [address] [facility]OC COMPREHENSI VE METABOLIC PANEL CARBON DIOXIDE, TOTAL [MOLES/VOLUM E] IN SERUM OR PLASMA 25 meq/L 22 - 31 03/18 Specimen Type: PLASMA Comment: No hemolysis noted. Ordering Provider: Nicanor KENNEDY Report Released Date/Time: Mar 18, 2024 10:55 AM Reporting Lab: [address] [phone] Performing Lab: [address] [phone] [place] [address] [facility]OC COMPREHENSI VE METABOLIC PANEL CALCIUM [MASS/VOLUME ] IN SERUM OR PLASMA 9.3 mg/dL 8.4 - 10.4 03/18 Specimen Type: PLASMA Comment: No hemolysis noted. Ordering Provider: Nicanor KENNEDY Report Released Date/Time: Mar 18, 2024 10:55 AM Reporting Lab: [address] [phone] Performing Lab: [address] [phone] [place] [address] CBOC COMPREHENSI VE METABOLIC PANEL PROTEIN [MASS/VOLUME ] IN SERUM OR PLASMA 6.9 g/dL 6 - 8.6 03/18 Specimen Type: PLASMA Comment: No hemolysis noted. Ordering Provider: Nicanor KENNEDY Report Released Date/Time: Mar 18, 2024 10:55 AM Reporting Lab: [address] [phone] Performing Lab: [address] [phone] [facility] COMPREHENSI VE METABOLIC PANEL ALBUMIN [MASS/VOLUME ] IN SERUM OR PLASMA 4.3 g/dL 3.4 - 5 03/18 Specimen Type: PLASMA Comment: No hemolysis noted. Ordering Provider: Nicanor KENNEDY Report Released Date/Time: Mar 18, 2024 10:55 AM Reporting Lab: [address] [phone] Performing Lab: [address] [phone] [facility] COMPREHENSI VE METABOLIC PANEL BILIRUBIN.TO ANTONI [MASS/VOLUME ] IN SERUM OR PLASMA 0.5 mg/dL 0.2 - 1.2 03/18 Specimen Type: PLASMA Comment: No hemolysis noted. Ordering Provider: Nicanor KENNEDY Report Released Date/Time: Mar 18, 2024 10:55 AM Reporting Lab: [address] [phone] Performing Lab: [address] [address] [facility] COMPREHENSI VE METABOLIC PANEL ALKALINE PHOSPHATASE [ENZYMATIC ACTIVITY/VOL UME] IN SERUM OR PLASMA 73 U/L 40 - 150 03/18 Specimen Type: PLASMA Comment: No hemolysis noted. Ordering Provider: Nicanor KENNEDY Report Released Date/Time: Mar 18, 2024 10:55 AM Reporting Lab: [address] [address] Performing Lab: [address] [phone] [facility] COMPREHENSI VE METABOLIC PANEL ASPARTATE AMINOTRANSFE RASE [ENZYMATIC ACTIVITY/VOL UME] IN SERUM OR PLASMA 28 U/L 5 - 34 03/18 Specimen Type: PLASMA Comment: No hemolysis noted. Ordering Provider: Nicanor KENNEDY Report Released Date/Time: Mar 18, 2024 10:55 AM Reporting Lab: [address] [address] Performing Lab: [address] [phone] [facility] COMPREHENSI VE METABOLIC PANEL ALANINE AMINOTRANSFE RASE [ENZYMATIC ACTIVITY/VOL UME] IN SERUM OR PLASMA 24 U/L 8 - 40 03/18 Specimen Type: PLASMA Comment: No hemolysis noted. Ordering Provider: Nicanor KENNEDY Report Released Date/Time: Mar 18, 2024 10:55 AM Reporting Lab: [facility] [address] [place] [phone] Performing Lab: [address] [phone] [facility] COMPREHENSI VE METABOLIC PANEL GLOMERULAR FILTRATION RATE/1.73 SQ M.PREDICTED [VOLUME RATE/AREA] IN SERUM, PLASMA OR BLOOD BY CREATININE-B ASED FORMULA (CKD-EPI 2020) 85.5 60 03/18 Specimen Type: PLASMA Comment: No hemolysis noted. Ordering Provider: Nicanor KENNEDY Report Released Date/Time: Mar 18, 2024 10:55 AM Reporting Lab: [facility] [address] [facility] [address] Performing Lab: [address] [phone] [place] [address] CBOC HGA1C HEMOGLOBIN A1C/HEMOGLOB IN.TOTAL IN BLOOD 5.5 4.0 - 6.0 03/18 Specimen Type: BLOOD No comment entered. Ordering Provider: Nicanor KENNEDY Report Released Date/Time: Mar 18, 2024 10:55 AM Reporting Lab: [facility] [address] [facility] [address] Performing Lab: [facility] [address] [facility] [phone] [place] [address] CBOC LIPID PANEL (STL) CHOLESTEROL [MASS/VOLUME ] IN SERUM OR PLASMA 209 mg/dL 0 - 200 03/18 H Specimen Type: PLASMA Comment: No hemolysis noted. Ordering Provider: Nicanor KENNEDY Report Released Date/Time: Mar 18, 2024 10:55 AM Reporting Lab: [facility] [address] [facility] [address] Performing Lab: [facility] [address] [facility] [address] [facility] LIPID PANEL (STL) TRIGLYCERIDE [MASS/VOLUME ] IN SERUM OR PLASMA 247 mg/dL 0 - 150 03/18 H Specimen Type: PLASMA Comment: No hemolysis noted. Ordering Provider: Nicanor KENNEDY Report Released Date/Time: Mar 18, 2024 10:55 AM Reporting Lab: [address] [address] Performing Lab: [address] [phone] [facility] LIPID PANEL (STL) CHOLESTEROL IN LDL [MASS/VOLUME ] IN SERUM OR PLASMA BY CALCULATION 106 mg/dL 03/18 Specimen Type: PLASMA Comment: No hemolysis noted. Ordering Provider: Nicanor KENNEDY Report Released Date/Time: Mar 18, 2024 10:55 AM Reporting Lab: [address] [address] Performing Lab: [address] [address] [facility] LIPID PANEL (STL) CHOLESTEROL IN HDL [MASS/VOLUME ] IN SERUM OR PLASMA 54 mg/dL 40 03/18 Specimen Type: PLASMA Comment: No hemolysis noted. Ordering Provider: Nicanor KENNEDY Report Released Date/Time: Mar 18, 2024 10:55 AM Reporting Lab: [address] [address] Performing Lab: [address] [address] [facility] TSH W/ REFLEX FT4 (STL) THYROTROPIN [UNITS/VOLUM E] IN SERUM OR PLASMA 0.605 u[IU]/ mL 0.47 - 5 03/18 Specimen Type: PLASMA No comment entered. Ordering Provider: Nicanor KENNEDY Report Released Date/Time: Mar 18, 2024 10:55 AM Reporting Lab: [facility] [address] [place] [phone] Performing Lab: [facility] [address] [facility] [phone] [facility] Vital Signs Combined list of inpatient and outpatient Vital Signs from Department of Defense and Veterans Affairs, ranging from 12 months to all on record, depending upon the facility. Vital Sign Value Date Comments Source SYSTOLIC BLOOD PRESSURE 120 03/29/2025 08:34:07 [facility] DIASTOLIC BLOOD PRESSURE 83 03/29/2025 08:34:07 [...] included; 2) Encounters from the Department of [facility] facilities going backup to 280 months. Location Location Details Encounter Type Encounter Number Reason For Visit Attending Provider ADM Date DC Date Status Disposition Source [facility]( art Team 1007) OUTPATIENT [id number] HARVEY BAPTISTE 07/08 Released with Work/Duty Limitations [facility]( Smart Team 1007) [facility]( art Team 1007) OUTPATIENT [id number] lft knee pain MIKE FORD 07/22 Released with Work/Duty Limitations [facility]( Smart Team 1007) [facility](Ma litfolsom Sick Call [facility] 237) OUTPATIENT [id number] L knee BEN BARNETT 08/26 Released with Work/Duty Limitations [facility]( Militar y Sick Call [facility] 237) [facility](Ma litary Sick [place] [address]) OUTPATIENT [id number] left knee AARTI STOVER 09/15 Released w/o Limitations [facility]( Militar y Sick Call [facility] 237) [facility](Ma litary Sick Call [place] [address]) OUTPATIENT [id number] pt c/o N/V. GUSTAVO SAMAYOA 09/16 Sick at Home/Quarter s [facility]( Militar y Sick Call [place] [address]) [facility] [place] [address]) OUTPATIENT [id number] f/u streap throat PRAMOD ARAUJO 10/03 Released w/o Limitations [facility]( [facility] [place] [address]) [facility] Sick Call [place] [address]) OUTPATIENT [id number] pt c/o left knee pain since bootcam p. AARTI STOVER 10/10 Released with Work/Duty Limitations [facility]( [facility] Sick [place] [address]) [facility] Sick Call [place] [address]) OUTPATIENT [id number] knee f/u AARTI STOVER 10/20 Released with Work/Duty Limitations [facility] [place] [address]) [facility] Sick Call [place] [address]) OUTPATIENT [id number] eval for ffd GUSTAVO SAMAYOA 10/24 Released with Work/Duty Limitations [facility]( Militar y Sick Call [place] [address]) [facility] Sick Call [place] [address]) OUTPATIENT [id number] sore throat AARTI STOVER 10/29 Sick at Home/Quarter s [facility]( Militar y Sick Call [facility] 237) [facility](Ma litary Sick Call [facility] 237) OUTPATIENT [id number] f/u strep AARTI STOVER 10/30 Released w/o Limitations [facility]( Militar y Sick Call [facility] 237) [facility](Mi litary Sick Call [facility] 237) OUTPATIENT [id number] f/u L knee AARTI STOVER 11/18 Released w/o Limitations [facility] 237) [facility](Ph ysical Therapy/2 37) OUTPATIENT [id number] BRET VILLA 11/21 Released with Work/Duty Limitations [facility]( Physica l Therapy /237) [facility] [place] OUTPATIENT [id number] PHYSICA L GUSTAVO VALLE 03/19 Released w/o Limitations [facility] [place]( [place] [facility]) [facility] [place]( [facility] Hearing Conserv[facility] ion) OUTPATIENT [id number] RITCHIE JULES 03/19 Released w/o Limitations [facility] [place]( [place] [facility]) [facility] [place] OUTPATIENT [id number] KOMAL SYED 03/19 Released w/o Limitations [facility] [place]( [place] [facility]) [facility] [place]( [facility] [facility]sea [facility]) OUTPATIENT [id number] SUB PHYS TAMIA DRUMMOND 03/31 Released w/o Limitations [facility] [place]( [place] [facility]) [facility] [place](Gr oton Immunizat ion) OUTPATIENT [id number] Immuniz ations SAM PIRES 04/08 Released w/o Limitations [facility] [place]( [place] [facility]) [facility] [place]([facility]) OUTPATIENT [id number] SUB DUTY SIMON OAKES 05/01 Released with Work/Duty Limitations [facility] [place]( [place] [facility] [place]([facility]) OUTPATIENT [id number] mental health clearan SIMON Rosario 07/14 Released with Work/Duty Limitations [facility] [place]( [place] [facility]) [facility](Gr [facility]sea Medicine) OUTPATIENT [id number] R Hand injury LIZETH JENKINS 07/17 Released with Work/Duty Limitations [facility] [place]( [place] [facility]) [facility](Immuniz ations [facility]) OUTPATIENT [id number] ppd/flu mist PLASCENCIAYVONNEShalom ARENAS 08/28 Released w/o Limitations [facility](Imm unizati ons [facility] ) [facility](Immuniz ations [facility]) OUTPATIENT [id number] ppd read JAZZ DAVIS 08/31 Released w/o Limitations [facility](Imm unizati ons [facility] ) [facility] ER, DIRECT TO [facility] [id number] ANA HANLEY 01/15 RETURNED TO DUTY [facility](Nutriti on NMCP) INPATIENT [id number] CHIDI Sterling 01/19 Inpatient- Still a Patient [facility](Nut rition [facility]) [facility](Nutriti on NMCP) INPATIENT [id number] TF f/u CHIDI ROBERT 01/24 Inpatient- Still a Patient [facility](Nut rition [facility]) [facility](Infecti ous Disease [facility]) INPATIENT [id number] TETO GARCÍA 01/26 Inpatient- Still a Patient [facility](Inf ectious Disease [facility]) [facility](Nutriti on NMCP) INPATIENT [id number] TF f/u CHIDI ROBERT 01/27 Inpatient- Still a Patient [facility](Nut rition [facility]) [facility](Infecti ous Disease [facility]) INPATIENT [id number] ELIEL TANG 01/27 Inpatient- Still a Patient [facility](Inf ectious Disease [facility]) [facility](Cardiol ogy [facility]) INPATIENT [id number] LUZMARIA Gaming 01/28 Inpatient- Still a Patient [facility](Car diology [facility]) [facility](Social Work [facility]) INPATIENT [id number] Psycho- social assessm HECTOR Johnson 02/03 Inpatient- Still a Patient [facility](Soc ial Work [facility]) [facility](Speech Pathology [facility]) INPATIENT [id number] Evaluat e for Passy Melba Speakin g Valve ODALIS RODRIGUEZ 02/07 Inpatient- Still a Patient [facility](Spe ech Patholo gy [facility]CP) [facility](Speech Pathology NMCP) INPATIENT [id number] AVM ODALIS RODRIGUEZ 02/08 Inpatient- Still a Patient [facility](Spe ech Patholo gy [facility]CP) [facility](Speech Pathology [facility]CP) INPATIENT [id number] ODALIS RODRIGUEZ 02/09 Inpatient- Still a Patient [facility](Spe ech Patholo gy [facility]CP) [facility](Speech Pathology [facility]CP) INPATIENT [id number] ODALIS RODRIGUEZ 02/10 Inpatient- Still a Patient [facility](Spe ech Patholo gy [facility]CP) [facility](Occ Therapy NMCP) INPATIENT [id number] [facility]/10 Inpatient- Still a Patient [facility](Occ Therapy [facility]) [facility](Occ Therapy [facility]CP) INPATIENT [id number] [facility] 02/14 Inpatient- Still a Patient [facility](Occ Therapy [facility]) [facility](Occ Therapy [facility]) INPATIENT [id number] [facility] Inpatient- Still a Patient [facility](Occ Therapy NMCP) [facility](Nutriti on NMCP) INPATIENT [id number] YOLANDA CEDEÑO 02/15 Inpatient- Still a Patient [facility](Nut rition [facility]CP) [facility] [place] [facility](Occ Therapy [facility]) INPATIENT [id number] in JAZZ Moe. 02/16 Inpatient- [facility] a Patient [facility] [place] [facility](Occ Therapy [facility]) [facility] [place] [facility](Speech Pathology [facility]) INPATIENT [id number] Re assess Swallow functio n ODALIS RODRIGUEZ 02/16 Inpatient- Still a Patient [facility] [place] [facility](Spe ech Patholo gy [facility]) [facility] [place] [facility](Occ Therapy [facility]) INPATIENT [id number] in JAZZ Moe. 02/16 Inpatient- Still a Patient [facility] [place] [facility](Occ Therapy [facility]) [facility] [place] [facility](Speech Pathology [facility]) INPATIENT [id number] ODALIS RODRIGUEZ 02/16 Inpatient- Still a Patient [facility] [place] [facility](Spe ech Patholo gy [facility]) [facility] [place] [facility](Speech Pathology [facility]) INPATIENT [id number] Dysphag ia ODALIS Mejia 02/17 Inpatient- Shelter [facility] [place] [facility](Spe ech Patholo gy [facility]) [facility] [place] [facility](Case Managemen t [facility] [place] [facility]) OUTPATIENT [id number] CASE MANAGEM ENT IVANNA CORTÉS S 03/08 Released w/o Limitations [facility] [place] [facility] Managem [facility] [place]) [facility] [place] [facility] Managemen [facility] [place] [facility]) OUTPATIENT [id number] CASE MANAGEM ENT IVANNA CORTÉS S 03/09 Released w/o Limitations [facility] [place] [facility]aj[place] [facility] Managem [facility] [place] [facility]) [facility] [place] [facility](Case Mgmt Active Duty (AD)) OUTPATIENT [id number] CASE MANAGEM ENT IVANNA CORTÉS S 03/10 Released w/o Limitations [facility] [place] [facility](Dajuan e Mgmt Active Duty (AD)) [facility] [place] [facility](Case Mgmt Active Duty (AD)) OUTPATIENT [id number] IVANNA CORTÉS S 03/14 Released w/o Limitations [facility] [place] [facility](Dajuan e Mgmt Active Duty (AD)) [facility] [place] [facility](Case Mgmt Active Duty (AD)) OUTPATIENT [id number] CASE MANAGEM ENT IVANNA CORTÉS S 03/15 Released w/o Limitations [facility] [place](Dajuan e Mgmt Active Duty (AD)) [facility] [place] [facility](Case Managemen t [facility] [place] [facility]) OUTPATIENT [id number] CASE MANAGEM ENT IVANNA CORTÉS S 03/17 Released w/o Limitations [place]Dajuan e Managem ent [facility] [place] [facility]) [facility] [place] [facility](Case Mgmt Active Duty (AD)) OUTPATIENT [id number] CASE MANAGEM ENT IVANNA CORTÉS S 03/18 Released w/o Limitations [facility] [place](Dajuan e Mgmt Active Duty (AD)) [facility] [place](Neurosu rgery [facility]) OUTPATIENT [id number] preangi o for 04/11/ from [facility]/tx n leave ANA HANLEY 03/25 Released w/o Limitations [facility] [place] [facility](William rosurge ry NMCP) [facility] [place]([facility]) OUTPATIENT [id number] bump under R armpit x 3 days HODGESMARYLU LOPEZ F 04/05 Released w/o Limitations [facility] [place] [facility] ) [facility] [place] DIRECT TO MTF FROM OTHER THAN ER OR [facility] [id number] MELISSAEDUIN AMADOR RACHEL 04/11 [employer] [facility] [place] [facility] [place](Neurosu rgery [place]) OUTPATIENT [id number] f/u after angiogr am 04/11 ANA HANLEY 04/14 Released w/o Limitations [facility] [place] [facility](William rosurge ry NMCP) [facility] [place] [facility] ADMISSION RESULTING FROM [facility], DIRECT TO MTF [id number] ANA HANLEY 04/19 RETURNED TO DUTY [facility] [place] [place] TELE CONSULT [id number] please call pt post surgery . Dr.Cobe brown, perform ed surgery 2 weeks ago. CHELSEA NEAL 05/06 [facility](William rosurge ry NMCP) [facility] [place](Case Managemen t [facility] [place]) OUTPATIENT [id number] Case Managem ent IVANNA CORTÉS S 05/06 Released w/o Limitations [facility](Dajuan e Managem ent [facility]) [facility] [place](Neurosu rgery [place]CP) TELE CONSULT [id number] pt would like for you to call him back, did not give details as to why. CHELSEA NEAL Mahin 05/23 [facility](William rosurge ry NMCP) [facility] [place](Neurosu rgery [facility]) OUTPATIENT [id number] 1st post op f/u; no xrays ANA HANLEY 05/31 Released w/o Limitations [facility] [facility](William rosurge ry NMCP) [facility] [place] [facility](Neurosu rgery NMCP) TELE CONSULT [id number] QUESTIO N FOR YOU CHELSEA NEAL Mahin 06/22 [facility](William rosurge ry NMCP) [facility] [place]) OUTPATIENT [id number] c/o hang nail ingrown on lt foot 3 wks HIGHANUJEL 06/28 Released w/o Limitations [facility] ) [facility] [place] [facility](Neurosu rgery NMCP) TELE CONSULT [id number] Med board CHELSEA NEAL Mahin 07/22 [facility](William rosurge ry NMCP) [facility] TELE CONSULT [id number] Questio n CHELSEA NEAL 08/03 [facility](William rosurge ry NMCP) [facility] [place] [facility](Case Mgmt Active Duty (AD)) OUTPATIENT [id number] Case Managem ent IVNANA CORTÉS S 08/16 Released w/o Limitations [facility](Dajuan e Mgmt Active Duty (AD)) [facility] h(Case Mgmt Active Duty (AD)) OUTPATIENT [id number] Case Managem ent IVANNA CORTÉS S 08/17 [facility]ased w/o Limitations [facility] [place](Dajuan e Mgmt Active Duty (AD)) [facility] [place] [facility](Case Mgmt Active Duty (AD)) OUTPATIENT [id number] Case Managem ent LYDIA CORTÉSA S 08/18 Released w/o Limitations [facility] [place] [facility](Dajuan e Mgmt Active Duty (AD)) [facility] [place] [facility](Case Mgmt Active Duty (AD)) OUTPATIENT [id number] Case Managem ent MOO, IVANNA S 08/19 Released w/o Limitations [facility] [place] [facility](Dajuan e Mgmt Active Duty (AD)) [facility] [place] [facility]) OUTPATIENT [id number] poss strep throat 2 days. TAMIA BALTAZAR 08/26 Released w/o Limitations [facility] [place] ) [facility] [place] [facility]) OUTPATIENT [id number] sore throat, weaknes s x 8 days; already seen but not better DAKOTA MCCORMICK 09/01 Released w/o Limitations [facility] [place] [facility] ) [facility] [place] [facility](Hearing Cons [facility]) OUTPATIENT [id number] PAL MCLEOD 09/05 Released w/o Limitations [facility] [place] [facility](Hea ring Cons [facility]) [facility] [place] [facility](Immuniz ations [facility]) OUTPATIENT [id number] ppd/flu mist KAREEN ARMENDARIZ 09/05 Released w/o Limitations [facility] [place] [facility](Imm unizati ons [facility] ) [facility] [place] [facility](Case Mgmt Active Duty (AD)) OUTPATIENT [id number] Case Managem ent IVANNA CORTÉS S 09/05 Released w/o Limitations [facility] [place] [facility](Dajuan e Mgmt Active Duty (AD)) [facility] [place] [facility](Immuniz ations [facility]) OUTPATIENT [id number] ppd check JESSICA SOSA 09/07 Released w/o Limitations [facility] [place](Imm unizati ons [facility] ) [facility] [place] [facility](Neurosu rgery NMCP) OUTPATIENT [id number] f/u EDUIN TORRES RACHEL 10/04 Released with Work/Duty Limitations [facility] [place](William rosurge ry NMCP[facility] [place] [facility] [place] OUTPATIENT [id number] part 2 [facility] [place] [facility] 10/06 [facility] w/o Limitations [facility] [place] [facility] [place] [place] [facility](Neurosu rgery NMCP) TELE CONSULT [id number] DR. HANLEY PATIENT CHELSEA NEAL 10/20 [facility] [place] [facility](William rosurge ry NMCP) [facility] [place] [facility](Case Mgmt Active Duty (AD)) OUTPATIENT [id number] Case Managem ent IVANNA CORTÉS 10/26 Released w/o Limitations [facility] [place](Dajuan e Mgmt Active Duty (AD)) [facility] [place] [facility](Occ Therapy NMCP) OUTPATIENT [id number] [facility] DELETE_TA _MEREDITH BUCKNER 10/26 Released w/o Limitations [facility] [place] [facility](Occ Therapy NMCP) [facility] [place] [facility](Occ Therapy NMCP) OUTPATIENT [id number] LILI MONTES 10/31 Released w/o Limitations [facility] [place] [facility](Occ Therapy NMCP) [facility] [place] [facility](Occ Therapy NMCP) OUTPATIENT [id number] PAULO CORTÉS 11/02 Released w/o Limitations [facility] [place] [facility](Occ Therapy NMCP) [facility] [place] [facility](Neurosu rgery NMCP) TELE CONSULT [id number] Letter CHELSEA NEAL 11/04 [facility] [place] [facility](William rosurge ry NMCP) [facility] [place] [facility](Occ Therapy NMCP) OUTPATIENT [id number] PAULO CORTÉS 11/07 Released w/o Limitations [facility] [place] [facility](Occ Therapy NMCP) [facility] [place] [facility](Occ Therapy NMCP) OUTPATIENT [id number] LILI MONTES 11/09 Released w/o Limitations [facility] [place] [facility](Occ Therapy NMCP) [facility] [place] [facility](Neurosu rgery NMCP) OUTPATIENT [id number] EDUIN TORRES 11/10 Released with Work/Duty Limitations [facility] [place](William rosurge ry NMCP) [facility] [place] [facility]) OUTPATIENT [id number] Headach es since Sep 2008 DENISE BUSH 11/16 Released w/o Limitations [facility] ) [facility] [place] [facility](Neurosu rgery NMCP) TELE CONSULT [id number] dr torres patient . HAN SHAH 11/16 [facility] [place] [facility](William rosurge ry NMCP) [facility] [place] [facility](Occ Therapy NMCP) OUTPATIENT [id number] LILI MONTES 11/17 Released w/o Limitations [facility] [place] [facility](Neurosu rgery NMCP) TELE CONSULT [id number] pt status post brain hemmora ge now having difficu lt painful swallow ing. HAN SHAH Radha 11/21 [facility](William rosurge ry NMCP) [facility] [place] [facility](Occ Therapy NMCP) OUTPATIENT [id number] LILI MONTES 11/21 Released w/o Limitations [facility] [place] [facility](Occ Therapy NMCP) [facility] [place] (Case Mgmt Active Duty (AD)) OUTPATIENT [id number] Case Managem ent IVANNA CORTÉS 11/23 Released w/o Limitations [facility] [place] [facility](Dajuan e Mgmt Active Duty (AD)) [facility] [place] [facility](Occ Therapy NMCP) OUTPATIENT [id number] PAULO CORTÉS 11/23 Released w/o Limitations [facility](Occ Therapy NMCP) [facility] [place] ([facility]) OUTPATIENT [id number] H/A since Sep ZAINAB SHETH 11/24 Released w/o Limitations [facility] ) [facility] [place] [facility](Occ Therapy NMCP) OUTPATIENT [id number] JOHN_MEREDITH SEN 11/25 Released w/o Limitations [facility] [place] [facility](Occ Therapy NMCP) [facility] h(Case Mgmt Active Duty (AD)) OUTPATIENT [id number] Case Managem IVANNA Slade S 12/26 Released w/o Limitations [facility] [place] [facility](Dajuan e Mgmt Active Duty (AD)) [facility](Neurosu rgery NMCP) TELE CONSULT [id number] [facility] patient CHELSEA NEAL 01/19 [facility] [place] [facility](William rosurge ry NMCP) [facility](Case Mgmt Active Duty (AD)) OUTPATIENT [id number] Case Managem ent IVANNA CORTÉS S 01/23 Released w/o Limitations [facility] [place] [facility](Dajuan e Mgmt Active Duty (AD)) [facility](Adjunct Instructor [employer]) OUTPATIENT [id number] 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 LATONYA MARADIAGA 02/02 Released w/o Limitations [facility]([employer] ) [facility](Adjunct Instructor Of Women'S Studies Aquatic Team NMCP) OUTPATIENT [id number] RENEE GREENWOOD 02/16 Released w/o Limitations [facility] [place] [facility](Phy s Ther Aquatic Team NMCP) [facility](Adjunct [employer]) OUTPATIENT [id number] HARVEY KONG 02/24 Released w/o Limitations [facility] [place] [facility]([employer] ) [facility](Case Mgmt Active Duty (AD)) OUTPATIENT [id number] Case Managem ent IVANNA CORTÉS S 02/24 Released w/o Limitations [facility] [place] [facility](Dajuan e Mgmt Active Duty (AD)) [facility] [employer]) OUTPATIENT [id number] NORAH JIMENEZ V 02/28 Released w/o Limitations [facility] [place](P[employer] ) [facility] [place] [facility](Adjunct [employer]) OUTPATIENT [id number] HARVEY KONG 03/01 Released w/o Limitations [facility] [place] [facility] [employer] ) [facility] [place] [facility](Case Mgmt Active Duty (AD)) OUTPATIENT [id number] Case Managem IVANNA Slade 03/03 Released w/o Limitations [facility] [place] [facility](Dajuan e Mgmt Active Duty (AD)) [facility] [place] [facility](Adjunct [employer]) OUTPATIENT [id number] HARVEY KONG 03/06 Released w/o Limitations [facility] [place] [facility]([employer] ) [facility] [place] [facility](Adjunct [employer]) OUTPATIENT [id number] HARVEY KONG 03/13 Released w/o Limitations [facility] [place] [facility] [employer] ) [facility] [place] [facility](Adjunct [employer]) OUTPATIENT [id number] NORAH JIMENEZ V 03/14 Released w/o Limitations [facility] [place] [facility] [employer] ) [facility] [place] [facility](Adjunct [employer]) OUTPATIENT [id number] HARVEY KONG 03/15 Released w/o Limitations [facility] [place] [facility]([employer] ) [facility] [place] [facility](Adjunct [employer]) OUTPATIENT [id number] NORAH JIMENEZ V 03/21 Released w/o Limitations [facility] [place] [facility] [employer] ) [facility] [place] [facility](Adjunct [employer]) OUTPATIENT [id number] HARVEY KONG 03/27 Released w/o Limitations [facility] [place] [facility]([employer] ) [facility] [place] [facility](Adjunct [employer]) OUTPATIENT [id number] ELVIA JEFFERS 04/12 Released w/o Limitations [facility] [place] [facility]([employer] ) [facility] [place] [facility](Adjunct [employer]) OUTPATIENT [id number] ELVIA JEFFERS 04/14 Released w/o Limitations [facility] [place] [facility]([employer] ) [facility] [place] [facility](Case Mgmt Active Duty (AD)) OUTPATIENT [id number] Case Managem ent IVANNA CORTÉS S 04/17 Released w/o Limitations [facility] [place] [facility](Dajuan e Mgmt Active Duty (AD)) [facility] [place] [facility](Neurosu rgery NMCP) TELE CONSULT [id number] pt has shashank boucher medical board HAN SHAH 05/22 [facility] [place] [facility](William rosurge ry NMCP) [facility] [place] [facility](Neurosu rgery NMCP) OUTPATIENT [id number] f/u for med boards ANA HANLEY 05/24 Released w/o Limitations [facility] [place] [facility](William rosurge ry NMCP) [facility] [place] [facility](Case Mgmt Active Duty (AD)) OUTPATIENT [id number] Case Managem ent IVANNA CORTÉS S 05/29 Released w/o Limitations [facility] [place] [facility](Dajuan e Mgmt Active Duty (AD)) [facility] [place] [facility] [place] [facility]) OUTPATIENT [id number] CHRIS Bartholomew 06/01 Released w/o Limitations [facility] [place] [facility](Phy s Exam [place]) [facility] [place] [facility](Hearing Cons [employer]) OUTPATIENT [id number] SIDNEY DICKERSON 06/01 Released w/o Limitations [facility] [place] [facility](Hea ring Cons [place] [facility]) [facility] [place] [facility](Mil [facility]) OUTPATIENT [id number] sore throat x 4 days MEREDITH PAGE 06/16 Sick at Home/Quarter s [facility] [place] [facility] ) [facility] [place] [facility](Neurosu rgery NMCP) TELE CONSULT [id number] prabhakar fontenot. would like to discuss med board. info cnt#[phone] CHELSEA NEAL 06/23 [facility] [place] [facility](William rosurge ry NMCP) [facility] [place] [facility](Case Mgmt Active Duty (AD)) OUTPATIENT [id number] Case Managem ent IVANNA CORTÉS S 08/01 Released w/o Limitations [facility] [place] [facility](Dajuan e Mgmt Active Duty (AD)) [facility] [place] [facility]) OUTPATIENT [id number] RIGHT WRIST PAIN ZAINAB SHETH 08/02 Released w/o Limitations [facility](Optomet ry [place]) OUTPATIENT [id number] eye exam DOROTHY SUH NMN 08/04 Released w/o Limitations [facility](Opt ometry [place]) [facility](Immuniz ation NMCP) OUTPATIENT [id number] Adult Imms - Flumist LISA PRASAD N P 08/17 Released w/o Limitations [facility](Imm unizati on NMCP) [facility](Neurosu rgery NMCP) TELE CONSULT [id number] Dr.Cobe brown pt. Mrs. [facility] rubio of Med Boards request ing consult for pt. 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 [employer]) OUTPATIENT [id number] TAMIA CARMONA 09/05 Released w/o Limitations [facility](Phy s Ther NMPS) [facility](Occ Therapy NMCP) OUTPATIENT [id number] AVM bleed PAL NIEVES 09/12 Released w/o Limitations [facility](Occ Therapy NMCP) [facility](Case Mgmt Active Duty (AD)) OUTPATIENT [id number] Case Managem ent IVANNA CORTÉS 09/21 Released w/o Limitations [facility](Dajuan e Mgmt Active Duty (AD)) [facility]) OUTPATIENT [id number] UPDATE LIMITED PROFILE FOR ZAINAB JACOME 11/01 Released w/o Limitations [facility](Immuniz ations [facility]) OUTPATIENT [id number] VACCINE S WILTON SILVA 11/15 Released w/o Limitations [facility](Imm unizati ons [facility] ) [facility](Immuniz ations [facility]) OUTPATIENT [id number] vaccine JESSICA SOSA 11/21 Released w/o Limitations [facility](Imm unizati ons [facility] ) [facility]([place]) OUTPATIENT [id number] MEDICAL ASSIGNM ENT SCREEN (STANDB Y) KERRI TREJO 11/24 Released w/o Limitations [facility](Ove rseas Screeni [place] ) [facility]) OUTPATIENT [id number] Pain in tonsils /throat , hot flashes IRENE FERGUSON 11/28 Released w/o Limitations [facility] ) [facility](Neurosu rgery NMCP) TELE CONSULT [id number] pt's [place] would like to speak with Dr Hanley [phone] CHELSEA NEAL 11/30 [facility](William rosurge ry NMCP) [facility](Neurosu rgery NMCP) OUTPATIENT [id number] f/u ANA HANLEY 12/01 Released w/o Limitations [facility](William rosurge ry NMCP) [facility] [place]) OUTPATIENT [id number] R MAGAÑA PAIN ZAINAB SHETH 12/05 Released w/o Limitations [facility] ) [facility](Case Mgmt Active Duty (AD)) OUTPATIENT [id number] Case Managem ent IVANNA CORTÉS S 12/15 Released w/o Limitations [facility](Dajuan e Mgmt Active Duty (AD)) [facility](Immuniz ations [facility]) OUTPATIENT [id number] vaccine CIERA FOREMAN Alessandro 01/09 Released w/o Limitations [facility](Imm unizati ons [facility] ) [facility]) OUTPATIENT [id number] Chest Pain EMMA WHALEY EDWARD 01/17 Released w/o Limitations [facility] ) [facility]) OUTPATIENT [id number] Injured right foot during PT x 5 days AYAD JEAN 02/21 Released w/o Limitations [facility] ) [facility]) OUTPATIENT [id number] f/u xray results ZAINAB SHETH 03/06 Released w/o Limitations [facility] ) [facility](Neurosu afshin CTCP) TELE CONSULT [id number] Dr Hanley Pt . needs form stating he can fly. Pt leaving [place] on 7[place]6 ÁNGEL, CHELSEA L 03/26 [facility](William aniceto brown NMCP) [facility]) OUTPATIENT [id number] sore throat EMMA WHALEY EDWARD 03/28 Released w/o Limitations [facility] ) [facility]) OUTPATIENT [id number] seen yesterd ay for sorethr oat today throat is worse BRENT HARRISON 03/29 Released w/o Limitations [facility] ) [facility](Immuniz ations [facility]) OUTPATIENT [id number] vaccine JAZZ DAVIS 05/09 Released w/o Limitations [facility](Imm unizati ons [facility] ) [facility]) OUTPATIENT [id number] R FOOT EVALUAT ION ZAINAB SHETH 05/15 Released w/o Limitations [facility] [place] ) [facility](Immuniz ations [facility]) OUTPATIENT [id number] vaccine KAREEN ARMENDARIZ 05/21 Released w/o Limitations [facility](Imm unizati ons [facility] ) [facility](Phys Exam [place]) OUTPATIENT [id number] SEPARAT ION PHYSICA L [id number] CHRIS CHONG S 05/22 Released w/o Limitations [facility](Phy s Exam [place] [facility]) [facility](Neurosu rgery NMCP) TELE CONSULT [id number] Pt c/o of more frequen t paralys is, since surgery . 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, site unspeci HARI Hale 12/29 [facility] En[facility] [id number] 03/16 [facility] En[facility] [id number] CHRISTINE SALDIVAR 03/18 [facility] OFFICE O/P EST LOW 20 MIN [id number] Diagnos is: ICD-10- CM Z00.00 Encntr for general adult medical exam w/o abnorma l finding s Nicanor KENNEDY L 03/18 [facility] Outpatient Encounter [id number] 04/07 [facility] INCLUDES THE [facility] N [facility] Outpatient Encounter [id number] 07/13 [facility] Outpatient Encounter [id number] 09/09 [facility] N [facility] Outpatient Encounter [id number] CARLA DOOLEY DUNIA 03/16 [facility] OFFICE O/P EST LOW 20 MIN [id number] Diagnos is: ICD-10- CM Z00.00 Encntr for general adult medical exam w/o abnorma l finding s Nicanor KENNEDY 03/29 [facility] PSYTX W PT 30 MINUTES [id number] Diagnos is: ICD-10- CM 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 Procedure Procedure Type Code Date Perfomer Comments Sourc e INDIVIDUAL PSYCHOTHERAPY, INSIGHT ORIENTED, BEHAVIOR MODIFYING AND/OR SUPPORTIVE, IN AN OFFICE OR OUTPATIENT FACILITY, APPROXIMATELY 20 TO 30 MINUTES [id number] WITH THE PATIENT 2006 [facility] PSYCHIATRIC DIAGNOSTIC INTERVIEW EXAMINATION 2006 [facility] IMMUNIZATION ADMINISTRATION (INCLUDES PERCUTANEOUS, INTRADERMAL, SUBCUTANEOUS, OR INTRAMUSCULAR INJECTIONS); 1 VACCINE (SINGLE OR COMBINATION VACCINE/TOXOID) 2006 [facility] PURE TONE AUDIOMETRY (THRESHOLD); AIR ONLY 2006 [facility] DETERMINATION OF REFRACTIVE STATE 2006 [facility] THERAPEUTIC PROCEDURE, 1 OR MORE AREAS, EACH 15 MINUTES; THERAPEUTIC EXERCISES TO DEVELOP STRENGTH AND ENDURANCE, RANGE OF MOTION AND FLEXIBILITY 2006 [facility] BUPRENORPHINE IMPLANT, 74.2 MG 2006 [facility] INDIVIDUAL PSYCHOTHERAPY, INSIGHT ORIENTED, BEHAVIOR MODIFYING AND/OR SUPPORTIVE, IN AN OFFICE OR OUTPATIENT FACILITY, APPROXIMATELY 20 TO 30 MINUTES [id number] WITH THE PATIENT 2006 [facility] PSYCHOLOGICAL TSTING (INCL PSYCHODIAG ASSESSMNT, EMOTITY, INTELLECTUAL ABILITIES, PERSONALITY &PSYCHOPATHOLOGY, EG, MMPI), ADMINISTERED COMPUTER, W QUALIFIED HEALTH WEBSPHERE COMMERCE CONSULTANT INTERPRET &RPT 2006 [facility] PSYCHIATRIC DIAGNOSTIC INTERVIEW EXAMINATION 2006 [facility] THERAPEUTIC PROCEDURE, 1 OR MORE AREAS, EACH 15 MINUTES; THERAPEUTIC EXERCISES TO DEVELOP STRENGTH AND ENDURANCE, RANGE OF MOTION AND FLEXIBILITY 2005 [facility] ORAL THERMOMETER, REUSABLE, ANY TYPE, EACH 2005 [facility] TYPHOID VACCINE, CAPSULAR POLYSACCHARIDE (VICPS), FOR INTRAMUSCULAR USE 2005 [facility] BUPRENORPHINE IMPLANT, 74.2 MG 2005 [facility] SCREENING TEST OF VISUAL ACUITY, QUANTITATIVE, BILATERAL 2005 [facility] AUDIOMETRIC TESTING OF GROUPS 2005 [facility] SKIN TEST; TUBERCULOSIS, INTRADERMAL 2005 [facility] SKIN TEST; TUBERCULOSIS, INTRADERMAL 2009 [facility] SKIN TEST; TUBERCULOSIS, INTRADERMAL 2009 [facility] ELECTROCARDIOGRAM, ROUTINE ECG WITH AT LEAST 12 LEADS; WITH INTERPRETATION AND REPORT 2009 [facility] SKIN TEST; TUBERCULOSIS, INTRADERMAL 2009 [facility] CASE MANAGEMENT, EACH 15 MINUTES 2009 [facility] IMMUNIZATION ADMINISTRATION (INCLUDES PERCUTANEOUS, INTRADERMAL, SUBCUTANEOUS, OR INTRAMUSCULAR INJECTIONS); EACH ADDITIONAL VACCINE (SINGLE OR COMBINATION VACCINE/TOXOID) 2009 [facility] CASE MANAGEMENT, EACH 15 MINUTES 2008 [facility] OCCUPATIONAL THERAPY EVALUATION 2008 [facility] PHYSICAL THERAPY RE-EVALUATION 2008 [facility] INFLUENZA VIRUS VACCINE, TRIVALENT, LIVE (LAIV3), FOR INTRANASAL USE 2008 [facility] FITTING OF SPECTACLES, EXCEPT FOR APHAKIA; MONOFOCAL 2008 [facility] COORDINATED CARE FEE, RISK ADJUSTED MAINTENANCE, LEVEL 4 2008 [facility] HANDLING AND/OR CONVEYANCE OF SPECIMEN FOR TRANSFER FROM THE OFFICE TO A LABORATORY 2008 [facility] SCREENING TEST, PURE TONE, AIR ONLY 2008 [facility] COORDINATED CARE FEE, RISK ADJUSTED MAINTENANCE, LEVEL 4 2008 [facility] COORDINATED CARE FEE, RISK ADJUSTED MAINTENANCE, LEVEL 4 2008 [facility] THERAPEUTIC PROCEDURE, 1 OR MORE AREAS, EACH 15 MINUTES; THERAPEUTIC EXERCISES TO DEVELOP STRENGTH AND ENDURANCE, RANGE OF MOTION AND FLEXIBILITY 2008 [facility] THERAPEUTIC PROCEDURE, 1 OR MORE AREAS, EACH 15 MINUTES; THERAPEUTIC EXERCISES TO DEVELOP STRENGTH AND ENDURANCE, RANGE OF MOTION AND FLEXIBILITY 2008 [facility] SELF-CARE/HOME MANAGMENT TRAIN (EG,ACT OF DAILY LIVING (ADL) &COMPENSAT TRAIN,MEAL PREPARATION,SAFETY PROCS,AND INSTRUCT IN USE OF ASST TECHNOLOGY DEV/ADPT EQUIP) DIR ONE-ON-ONE CONT,EA 15 MINUTES 2008 [facility] THERAPEUTIC PROCEDURE, 1 OR MORE AREAS, EACH 15 MINUTES; THERAPEUTIC EXERCISES TO DEVELOP STRENGTH AND ENDURANCE, RANGE OF MOTION AND FLEXIBILITY 2008 [facility] SELF-CARE/HOME MANAGMENT TRAIN (EG,ACT OF DAILY LIVING (ADL) &COMPENSAT TRAIN,MEAL PREPARATION,SAFETY PROCS,AND INSTRUCT IN USE OF ASST TECHNOLOGY DEV/ADPT EQUIP) DIR ONE-ON-ONE CONT,EA 15 MINUTES 2008 [facility] THERAPEUTIC PROCEDURE, 1 OR MORE AREAS, EACH 15 MINUTES; AQUATIC THERAPY WITH THERAPEUTIC EXERCISES 2008 [facility] SELF-CARE/HOME MANAGMENT TRAIN (EG,ACT OF DAILY LIVING (ADL) &COMPENSAT TRAIN,MEAL PREPARATION,SAFETY PROCS,AND INSTRUCT IN USE OF ASST TECHNOLOGY DEV/ADPT EQUIP) DIR ONE-ON-ONE CONT,EA 15 MINUTES 2008 [facility] SELF-CARE/HOME MANAGMENT TRAIN (EG,ACT OF [...] DoD CASE MANAGEMENT, EACH 15 MINUTES 2008 [facility] OCCUPATIONAL THERAPY RE-EVALUATION 2008 [facility] [...] IMPROVE FUNCTIONAL PERFORMANCE), EACH 15 MINUTES 2008 [facility] NEUROPSYCHOLOG TST (EG,[facility] NEUROPSYCHOLOG JEREMIAS,ANASTASIIA MEM SCALES & WISC CARD SORT TST),/HR OF PSYCHOLOGIST/PHYS TIME,BOTH [id number] ADMIN TST TO PAT & TIME INTERP [...] WISC CARD SORT TST),/HR OF PSYCHOLOGIST/PHYS TIME,BOTH [id number] ADMIN TST TO PAT & TIME INTERP TEST RES & PREP RPT 2008 [facility] THERAPEUTIC PROCEDURE, 1 OR MORE AREAS, EACH 15 MINUTES; THERAPEUTIC EXERCISES TO DEVELOP STRENGTH AND ENDURANCE, RANGE OF MOTION AND FLEXIBILITY 2008 [facility] COORDINATED CARE FEE, RISK ADJUSTED MAINTENANCE, LEVEL 3 2008 [facility] UNLISTED SPECIAL SERVICE, PROCEDURE OR REPORT 2008 [facility] PSYCHOLOGICAL TSTING (INCL PSYCHODIAG ASSESSMNT, EMOTITY, INTELLECTUAL ABILITIES, PERSONALITY &PSYCHOPATHOLOGY, EG, MMPI), ADMINISTERED COMPUTER, W QUALIFIED HEALTH WEB[employer] COMMERCE CONSULTANT INTERPRET &RPT 2008 [facility] PSYCHIATRIC DIAGNOSTIC INTERVIEW EXAMINATION 2008 [facility] SCREENING TEST OF VISUAL ACUITY, QUANTITATIVE, BILATERAL 2008 [facility] COORDINATED CARE FEE, RISK ADJUSTED MAINTENANCE, LEVEL 3 2007 [facility] IMMUNIZATION ADMINISTRATION BY INTRANASAL OR ORAL ROUTE; 1 VACCINE (SINGLE OR COMBINATION VACCINE/TOXOID) 2007 [facility] AUDIOMETRIC TESTING OF GROUPS 2007 [facility] COLLECTION OF VENOUS BLOOD BY VENIPUNCTURE 2007 [facility] HANDLING AND/OR CONVEYANCE OF SPECIMEN FOR TRANSFER FROM THE OFFICE TO A LABORATORY 2007 [facility] CASE MANAGEMENT, EACH 15 MINUTES 2007 [facility] CASE MANAGEMENT, EACH 15 MINUTES 2007 [facility] CASE MANAGEMENT, EACH 15 MINUTES 2007 [facility] COORDINATED CARE FEE, RISK ADJUSTED MAINTENANCE 2007 [facility] CASE MANAGEMENT, EACH 15 MINUTES 2007 [facility] COMPUTERIZED AXIAL TOMOGRAPHY OF HEAD 2007 [facility] ARTERIOGRAPHY OF CEREBRAL ARTERIES 2007 [facility] OTHER EXCISION OR DESTRUCTION OF LESION OR TISSUE OF BRAIN 2007 [facility] OTHER CRANIECTOMY 2007 [facility] POSTOPERATIVE FOLLOW-UP VISIT, [...] POSTOPERATIVE PERIOD REASON RELATED ORIGINAL PROCEDURE 2007 [facility] SURGERY OF INTRACRANIAL ARTERIOVENOUS MALFORMATION; [...] DoD VENOUS CATHETERIZATION, NOT ELSEWHERE CLASSIFIED 2007 [facility] PERCUTANEOUS [ENDOSCOPIC] GASTROSTOMY [PEG] 2007 [facility] COMPUTERIZED AXIAL TOMOGRAPHY OF HEAD 2007 [facility] COMPUTERIZED AXIAL TOMOGRAPHY OF THORAX 2007 [facility] COMPUTERIZED AXIAL TOMOGRAPHY OF ABDOMEN 2007 [facility] ARTERIOGRAPHY OF CEREBRAL ARTERIES 2007 [facility] DIAGNOSTIC ULTRASOUND OF HEART 2007 [facility] OTHER DIAGNOSTIC ULTRASOUND 2007 [facility] RESPIRATORY MEDICATION ADMINISTERED BY NEBULIZER 2007 [facility] OTHER OXYGEN ENRICHMENT 01/28 [facility] INSERTION OF ENDOTRACHEAL TUBE 2007 [facility] OTHER LAVAGE OF BRONCHUS AND TRACHEA 2007 [facility] ENTERAL INFUSION OF CONCENTRATED NUTRITIONAL SUBSTANCES 2007 [facility] CONTINUOUS MECHANICAL VENTILATION FOR 96 CONSECUTIVE HOURS OR MORE 2007 [facility] INJECTION OF ANTICOAGULANT 2007 [facility] INJECTION OF ANTIBIOTIC 01/28 [facility] CLOSED [ENDOSCOPIC] BIOPSY OF BRONCHUS 2007 [facility] TEMPORARY TRACHEOSTOMY 02/17 [facility] OTHER INCISION OF BRAIN 01/28 [facility] VENTRICULOSTOMY 2007 [facility] TREATMENT OF SWALLOWING DYSFUNCTION AND/OR ORAL FUNCTION FOR FEEDING 2007 [facility] POSTOPERATIVE FOLLOW-UP VISIT, NORMALLY INCLUDED IN THE SURGICAL PACKAGE, INDICATE THAT EVALUATION & MANAGEMENT SERVICE WAS PERFORMED DURING A POSTOPERATIVE PERIOD REASON RELATED ORIGINAL PROCEDURE 2007 [facility] THERAPEUTIC PROCEDURE,1 OR MORE AREAS,EACH 15 MINUTES;NEUROMUSCULAR REEDUCATION OF MOVEMENT,BALANCE,COORDI NATION,KINESTHETIC SENSE,POSTURE,AND/OR PROPRIOCEPTION FOR SITTING AND/OR STANDING ACTIVITIES 2007 [facility] TREATMENT OF SWALLOWING DYSFUNCTION AND/OR ORAL FUNCTION FOR FEEDING 2007 [facility] THERAPEUTIC PROCEDURE, 1 OR MORE AREAS, EACH 15 MINUTES; GAIT TRAINING (INCLUDES STAIR CLIMBING) 2007 [facility] POSTOPERATIVE FOLLOW-UP VISIT, NORMALLY INCLUDED IN THE SURGICAL PACKAGE, INDICATE THAT EVALUATION & MANAGEMENT SERVICE WAS PERFORMED DURING A POSTOPERATIVE PERIOD REASON RELATED ORIGINAL PROCEDURE 2007 [facility] SELF-CARE/HOME MANAGMENT TRAIN (EG,ACT OF DAILY LIVING (ADL) &COMPENSAT TRAIN,MEAL PREPARATION,SAFETY PROCS,AND INSTRUCT IN USE OF ASST TECHNOLOGY DEV/ADPT EQUIP) DIR ONE-ON-ONE CONT,EA 15 MINUTES 2007 [facility] THERAPEUTIC PROCEDURE, 1 OR MORE AREAS, EACH 15 MINUTES; GAIT TRAINING (INCLUDES STAIR CLIMBING) 2007 [facility] MEDICAL NUTRITION THERAPY; RE-ASSESSMENT AND INTERVENTION, INDIVIDUAL, [id number] WITH THE PATIENT, EACH 15 MINUTES 2007 [facility] SELF-CARE/HOME MANAGMENT TRAIN (EG,ACT OF DAILY LIVING (ADL) &COMPENSAT TRAIN,MEAL PREPARATION,SAFETY PROCS,AND INSTRUCT IN USE OF ASST TECHNOLOGY DEV/ADPT EQUIP) DIR ONE-ON-ONE CONT,EA 15 MINUTES 2007 [facility] THERAPEUTIC ACTIVITIES, DIRECT (ONE-ON-ONE) PATIENT [...] POSTOPERATIVE PERIOD REASON RELATED ORIGINAL PROCEDURE 2007 [facility] PHYSICAL THERAPY RE-EVALUATION 2007 [facility] POSTOPERATIVE FOLLOW-UP VISIT, NORMALLY INCLUDED IN THE SURGICAL PACKAGE, INDICATE THAT EVALUATION & MANAGEMENT SERVICE WAS PERFORMED DURING A POSTOPERATIVE PERIOD REASON RELATED ORIGINAL PROCEDURE 2007 [facility] THERAPEUTIC ACTIVITIES, DIRECT (ONE-ON-ONE) PATIENT CONTACT (USE OF DYNAMIC ACTIVITIES TO IMPROVE FUNCTIONAL PERFORMANCE), EACH 15 MINUTES 2007 [facility] TREATMENT OF SWALLOWING DYSFUNCTION AND/OR ORAL FUNCTION FOR FEEDING 2007 [facility] POSTOPERATIVE FOLLOW-UP VISIT, NORMALLY INCLUDED IN THE SURGICAL PACKAGE, INDICATE THAT EVALUATION & MANAGEMENT SERVICE WAS PERFORMED DURING A POSTOPERATIVE PERIOD REASON RELATED ORIGINAL PROCEDURE 2007 [facility] THERAPEUTIC ACTIVITIES, DIRECT (ONE-ON-ONE) PATIENT CONTACT (USE OF DYNAMIC ACTIVITIES TO IMPROVE FUNCTIONAL PERFORMANCE), EACH 15 MINUTES 2007 [facility] THERAPEUTIC PROCEDURE, 1 OR MORE AREAS, EACH 15 MINUTES; THERAPEUTIC EXERCISES TO DEVELOP STRENGTH AND ENDURANCE, RANGE OF MOTION AND FLEXIBILITY 2007 [facility] TREATMENT OF SWALLOWING DYSFUNCTION AND/OR [...] POSTOPERATIVE PERIOD REASON RELATED ORIGINAL PROCEDURE 2007 [facility] THERAPEUTIC ACTIVITIES, DIRECT (ONE-ON-ONE) PATIENT CONTACT (USE OF DYNAMIC ACTIVITIES TO IMPROVE FUNCTIONAL PERFORMANCE), EACH 15 MINUTES 2007 [facility] TREATMENT OF SPEECH, LANGUAGE, VOICE, COMMUNICATION, AND/OR AUDITORY PROCESSING DISORDER; INDIVIDUAL 2007 [facility] MEDICAL NUTRITION THERAPY; RE-ASSESSMENT AND INTERVENTION, INDIVIDUAL, [id number] WITH THE PATIENT, EACH 15 MINUTES 2007 [facility] OCCUPATIONAL THERAPY EVALUATION 2007 [facility] THERAPEUTIC ACTIVITIES, DIRECT (ONE-ON-ONE) PATIENT CONTACT (USE OF DYNAMIC ACTIVITIES TO IMPROVE FUNCTIONAL PERFORMANCE), EACH 15 MINUTES 2007 [facility] TRACHEOSTOMY SPEAKING VALVE 2007 [facility] POSTOPERATIVE FOLLOW-UP VISIT, NORMALLY INCLUDED IN THE SURGICAL PACKAGE, INDICATE THAT EVALUATION & MANAGEMENT SERVICE WAS PERFORMED DURING A POSTOPERATIVE PERIOD REASON RELATED ORIGINAL PROCEDURE 2007 [facility] PHYSICAL THERAPY EVALUATION 2007 [facility] TRACHEOSTOMY SPEAKING VALVE 2007 [facility] POSTOPERATIVE FOLLOW-UP VISIT, NORMALLY INCLUDED IN THE SURGICAL PACKAGE, INDICATE THAT EVALUATION & MANAGEMENT SERVICE WAS PERFORMED DURING A POSTOPERATIVE PERIOD REASON RELATED ORIGINAL PROCEDURE 2007 [facility] PHYSICAL THERAPY EVALUATION 2007 [facility] HEALTH&BEHAV ASSESSMENT (EG, HEALTH-FOC CLINICAL INTERVIEW, BEHAVIORAL OBSERVATIONS, PSYCHOPHYSICOLOGICAL MONITOR, HEALTH-ORIENT QUESTIONNAIRES), EA 15 MIN [id number] W THE PATIENT; INIT ASSESSMENT 2007 [facility] MEDICAL NUTRITION THERAPY; RE-ASSESSMENT AND INTERVENTION, INDIVIDUAL, [id number] WITH THE PATIENT, EACH 15 MINUTES 2007 [facility] INSERTION OF GASTROSTOMY TUBE, PERCUTANEOUS, UNDER FLUOROSCOPIC GUIDANCE INCLUDING CONTRAST INJECTION(S), IMAGE DOCUMENTATION AND REPORT 2007 [facility] MEDICAL NUTRITION THERAPY; RE-ASSESSMENT AND INTERVENTION, INDIVIDUAL, [id number] WITH THE PATIENT, EACH 15 MINUTES 2007 [facility] MEDICAL NUTRITION THERAPY; RE-ASSESSMENT AND INTERVENTION, INDIVIDUAL, [id number] WITH THE PATIENT, EACH 15 MINUTES 2007 [facility] POSTOPERATIVE FOLLOW-UP VISIT, NORMALLY INCLUDED IN THE SURGICAL PACKAGE, INDICATE THAT EVALUATION & MANAGEMENT SERVICE WAS PERFORMED DURING A POSTOPERATIVE PERIOD REASON RELATED ORIGINAL PROCEDURE 2007 [facility] POSTOPERATIVE FOLLOW-UP VISIT, NORMALLY INCLUDED IN THE SURGICAL PACKAGE, INDICATE THAT EVALUATION & MANAGEMENT SERVICE WAS PERFORMED DURING A POSTOPERATIVE PERIOD REASON RELATED ORIGINAL PROCEDURE 2007 [facility] CRANIECTOMY OR CRANIOTOMY FOR EVACUATION OF HEMATOMA, SUPRATENTORIAL; INTRACEREBRAL 2007 [facility] MEDICAL NUTRITION THERAPY; RE-ASSESSMENT AND INTERVENTION, INDIVIDUAL, [id number] WITH THE PATIENT, EACH 15 MINUTES 2007 [facility] SKIN TEST; TUBERCULOSIS, INTRADERMAL 2006 [facility] PT A e ment Kinetic Training PT Assessment Kinetic Training 62811 2007 JAZZ CARTER [facility] Training And Self-Care Skills Training And Self-Care Skills 42670 2007 JAZZ CARTER [facility] Exercises A isted Exercises For ROM Exercises Assisted Exercises For ROM 97073 2007 JAZZ CARTER [facility] Treatment Of Swallowing Dysfunction Treatment Of Swallowing Dysfunction 78830 2007 ODALIS RODRIGUEZ [facility] ENT Services Supervised Individual Speech/Hearing Therapy 2007 ODALIS RODRIGUEZ [facility] Treatment Of Swallowing Dysfunction Treatment Of Swallowing Dysfunction 34062 2007 ODALIS RODRIGUEZ [facility] Tracheostomy speaking valve 2007 ODALIS RODRIGUEZ [facility] Special ENT Services Evaluation of Speech/Hearing Problem 2007 ODALIS RODRIGUEZ [facility] Evaluation Of Swallowing And Oral Function Evaluation Of Swallowing And Oral Function 91204 2007 ODALIS RODRIGUEZ [facility] Tracheostomy speaking valve 2007 ODALIS RODRIGUEZ [facility] Health And Behav A e mt Each 15 Min Initial A e ment Health And Behav Assessmt Each 15 Min Initial Assessment 23596 2007 HECTOR DODGE [facility] Medical Nutrition Therapy Re-a e ment, Intervention Medical Nutrition Therapy Re-assessment, Intervention 82323 2007 CHIDI ROBERT Cj [facility] Medical Nutrition Therapy Re-a e ment, Intervention Medical Nutrition Therapy Re-assessment, Intervention 95115 2007 YESICA CHIDI F [facility] Medical Nutrition Therapy Re-a e ment, Intervention Medical Nutrition Therapy Re-assessment, Intervention 23461 2007 CIHDI RBOERT Immunization Admin By Intranasal / Oral Route One Vaccine Immunization Admin By Intranasal / Oral Route One Vaccine 20237 2006 PASQUALE PLASCENCIA [facility] Influenza Virus Vaccine Live Intranasal 2006 PASQUALE PLASCENCIA [facility] Skin Test Anergy Tuberculin Intradermal Skin Test Anergy Tuberculin Intradermal 05704 2006 PASQUALE PLASCENCIA [facility] Psychiatric Therapy Individual Approximately 20-30 Minutes Psychiatric Therapy Individual Approximately 20-30 Minutes 55927 2006 ALESSIA TAN [facility] Psychiatric Evaluation Comprehensive Examination Psychiatric Evaluation Comprehensive Examination 62716 2006 ALESSIA TAN Hepatitis A And Hepatitis B (Intramuscular Use) Adult Dosage Hepatitis A And Hepatitis B (Intramuscular Use) Adult Dosage 12667 2006 ROQUE WHITNEY Immunization Administration One Vaccine Immunization Administration One Vaccine 06780 2006 ROQUE WHITNEY Threshold Audiogram (Pure Tone) Threshold Audiogram (Pure Tone) 10677 2006 KOMAL SYED Audiogram (Screening) Audiogram (Screening) 70329 2006 RITCHIE YOUNG Ophthalmological New Patient Start Comprehensive Care Ophthalmological New Patient Start Comprehensive Care 09043 2006 GUSTAVO VALLE Determination Of Refractive State Determination Of Refractive State 72958 2006 GUSTAVO VALLE Exercises A isted Exercises For ROM Exercises Assisted Exercises For ROM 70933 2006 BRET VILLA PT A e ment Kinetic Training Initial 30 Minutes PT Assessment Kinetic Training Initial 30 Minutes 12463 2006 BRET VILLA Physical Medicine - Group Physical Therapy Se ion Physical Medicine - Group Physical Therapy Session 02145 2006 BRET VILLA Psychiatric Therapy Environmental Intervention Psychiatric Therapy Environmental Intervention 77426 2006 LEMUEL SAMPSON [facility] Psychiatric Therapy Individual Approximately 20-30 Minutes Psychiatric Therapy Individual Approximately 20-30 Minutes 32594 2006 LEMUEL SAMPSON [facility] Psychologic Testing And Report Administered By Computer Psychologic Testing And Report Administered By Computer 47957 2006 LEMUEL SAMPSON [facility] Psychiatric Evaluation Comprehensive Examination Psychiatric Evaluation Comprehensive Examination 35448 2006 LEMUEL SAMPSON [facility] Skin Test Anergy Tuberculin Intradermal Skin Test Anergy Tuberculin Intradermal 57979 2009 KAREEN ARMENDARIZ [facility] Skin Test Anergy Tuberculin Intradermal Skin Test Anergy Tuberculin Intradermal 82434 2009 JAZZ DAVIS [facility] Electrocardiogram Electrocardiogram 86270 01/17 EMMA WHALEY [facility] Skin Test Anergy Tuberculin Intradermal Skin Test Anergy Tuberculin Intradermal 05996 2009 CIERA FOREMAN [facility] Coordinated care fee, risk adjusted maintenance 2009 IVANNA CORTÉS [facility] Case Management, each 15 minutes 2009 IVANNA CORTÉS [facility] Influenza Virus Vaccine Pandemic Formulation Influenza Virus Vaccine Pandemic Formulation 59060 2009 WILTON SILVA [facility] Immunization Admin By Intranasal / Oral Route One Vaccine Immunization Admin By Intranasal / Oral Route One Vaccine 21002 2009 WILTON SILVA [facility] Immunization Administration Each Additional Vaccine 2009 WILTON SILVA [facility] Typhoid Vaccine Vi Capsular Polysaccharide, For Intramus Use Typhoid Vaccine Vi Capsular Polysaccharide, For Intramus Use 96339 2009 WILTON SILVA [facility] Skin Test Anergy Tuberculin Intradermal Skin Test Anergy Tuberculin Intradermal 18056 2009 WILTON SILVA [facility] Coordinated care fee, risk adjusted maintenance, Level 4 2009 IVANNA CORTÉS [facility] Case Management, each 15 minutes 2009 IVANNA CORTÉS [facility] Occupational Therapy Evaluation Occupational Therapy Evaluation 35318 2008 PAL NIEVES 30 min [facility] Physical Medicine Physical Therapy Re-Evaluation Physical Medicine Physical Therapy Re-Evaluation 97582 2008 TAMIA CARMONA [facility] Influenza Virus Vaccine Live Intranasal 2008 HEIDE PRASAD [facility] Immunization Admin By Intranasal / Oral Route One Vaccine Immunization Admin By Intranasal / Oral Route One Vaccine 29798 2008 HEIDE PRASAD [facility] Coordinated care fee, risk adjusted maintenance, Level 4 2008 IVANNA CORTÉS [facility] Spectacles Services Fitting Monofocals (Not For Aphakia) Spectacles Services Fitting Monofocals (Not For Aphakia) 48744 2008 DOROTHY SUH CTElin [facility] Determination Of Refractive State Determination Of Refractive State 75571 2008 DOROTHY SUH CTElin [employer] Ophthalmological New Patient Start Comprehensive Care Ophthalmological New Patient Start Comprehensive Care 70945 2008 DOROTHY SUH CTElin [facility] -Supervised Specimen Handling / Transfer: Office To Lab -Supervised Specimen Handling / Transfer: Office To Lab 12293 2008 MEREDITH PAGE [facility] Coordinated care fee, risk adjusted maintenance, Level 4 2008 MOO IVANNA S [facility] Case Management, each 15 minutes 2008 MOO IVANNA S [facility] Audiogram (Screening) Audiogram (Screening) 29018 2008 SIDNEY DICKERSON [facility] Audiometry Group Testing Audiometry Group Testing 37131 2008 SIDNEY DICKERSON [facility] Coordinated care fee, risk adjusted maintenance, Level 4 2008 MOO IVANNA S [facility] Case Management, each 15 minutes 2008 MOO IVANNA S [facility] Physical Therapy: ___ Se ion Segments, 15 Minutes Each Physical Therapy: ___ Session Segments, 15 Minutes Each 12349 2008 ELVIA JEFFERS x 20 mins [facility] Physical Therapy: ___ Se ion Segments, 15 Minutes Each Physical Therapy: ___ Session Segments, 15 Minutes Each 02298 2008 ELVIA JEFFERS x 30 mins [facility] Phys Therapy Education Self Care Training - Per 15 Minutes Phys Therapy Education Self Care Training - Per 15 Minutes 30433 2008 HARVEY KONG [facility] Physical Therapy: ___ Se ion Segments, 15 Minutes Each Physical Therapy: ___ Session Segments, 15 Minutes Each 20216 2008 NORAH JIMENEZ Aquatic Exercises Aquatic Exercises 92510 03/15 NORAH JIMENEZ Phys Therapy Education Self Care Training - Per 15 Minutes Phys Therapy Education Self Care Training - Per 15 Minutes 36925 2008 HARVEY KONG [facility] Phys Therapy Education Self Care Training - Per 15 Minutes Phys Therapy Education Self Care Training - Per 15 Minutes 28298 2008 HARVEY KONG Phys Therapy Education Self Care Training - Per 15 Minutes Phys Therapy Education Self Care Training - Per 15 Minutes 48763 2008 HARVEY KONG [facility] Coordinated care fee, risk adjusted [...] Self Care Training - Per 15 Minutes 99849 2008 HARVEY KONG Aquatic Exercises Aquatic Exercises 80332 02/28 NORAH JIMENEZ V [facility] Phys Therapy Education Self Care Training - Per 15 Minutes Phys Therapy Education Self Care Training - Per 15 Minutes 86379 2008 HARVEY KONG Aquatic Exercises Aquatic Exercises 13694 02/16 RENEE GREENWOOD [facility] Physical Medicine Physical Therapy Evaluation Physical Medicine Physical Therapy Evaluation 01179 2008 LATONYA MARADIAGA [facility] Coordinated care fee, risk adjusted maintenance, Level 4 2008 LONG, IVANNA S [facility] Case Management, each 15 minutes 2008 LONG, IVANNA S [facility] Coordinated care fee, risk adjusted maintenance, Level 4 2008 LONG, IVANNA S [facility] Case Management, each 15 minutes 2008 LONG, IVANNA S [facility] Occupational Therapy Re-Evaluation Occupational Therapy Re-Evaluation 67283 2008 DELETE_IEN_MEREDITH STAFFORD [facility] PT A e ment Kinetic Training PT Assessment Kinetic Training 16236 2008 PAULO CORTÉS [facility] Coordinated care fee, risk adjusted maintenance, Level 3 2008 LONG, IVANNA S [facility] Case Management, each 15 minutes 2008 LONG, IVANNA S [facility] PT A e ment Kinetic Training PT Assessment Kinetic Training 80153 2008 LILI MONTES [facility] PT A e ment Kinetic Training PT Assessment Kinetic Training 85331 2008 LILI MONTES PT A e ment Kinetic Training PT Assessment Kinetic Training 86299 2008 LILI MONTES Psychometric Neuropsych Testing Battery Admin By Physician Psychometric Neuropsych Testing Battery Admin By Physician 54203 2008 MONICA WATSON PT A e ment Kinetic Training PT Assessment Kinetic Training 69290 2008 PAULO CORTÉS PT A e ment Kinetic Training PT Assessment Kinetic Training 04170 2008 PAULO CORTÉS PT A e ment Kinetic Training PT Assessment Kinetic Training 14523 2008 PAULO CORTÉS Psychometric Neuropsych Testing Battery Admin By Physician Psychometric Neuropsych Testing Battery Admin By Physician 69089 2008 JATINDER GARCIA Psychometric Neuropsych Testing Battery Admin By Ash Kier Boiler Psychometric Neuropsych Testing Battery Admin By Ash Kier Boiler 64222 2008 JATINDER GARCIA Exercises A isted Exercises For ROM Exercises Assisted Exercises For ROM 28395 2008 JOHN_MEREDITH MISHRA Training And Self-Care Skills Training And Self-Care Skills 22335 2008 MEREDITH LOMELI Occupational Therapy Evaluation Occupational Therapy Evaluation 73400 2008 MEREDITH LOMELI Coordinated care fee, risk adjusted maintenance, Level 3 2008 IVANNA CORTÉS S [facility] Case Management, each 15 minutes 2008 IVANNA CORTÉS S Martín Psychologic Testing And Report Administered By Computer Psychologic Testing And Report Administered By Computer 59624 2008 JATINDER GARCIA Psychometric Neuropsych Testing Battery Admin By Ash Kier Boiler Psychometric Neuropsych Testing Battery Admin By Ash Kier Boiler 16922 2008 JATINDER GARCIA [facility] Psychiatric Evaluation Comprehensive Examination Psychiatric Evaluation Comprehensive Examination 79808 2008 MONICA WATSON [facility] Screening Test Of Visual Acuity, Quantitative, Bilateral Screening Test Of Visual Acuity, Quantitative, Bilateral 07155 2008 SIERRA DE LA ROSA [facility] Coordinated care fee, risk adjusted maintenance, Level 3 2007 LONGLYDIAA S [facility]D Case Management, each 15 minutes 2007 LYDIA CORTÉSA S [facility] Audiometry Group Testing Audiometry Group Testing [id number] 2007 PAL MCLEOD [facility] Immunization Admin By Intranasal / Oral Route One Vaccine Immunization Admin By Intranasal / Oral Route One Vaccine [id number] 2007 KAREEN ARMENDARIZ [facility] Influenza Virus Vaccine Live Intranasal 2007 KALA KAREEN [facility] Skin Test Anergy Tuberculin Intradermal Skin Test Anergy Tuberculin Intradermal 12180 2007 KAREEN ARMENDARIZ [facility] Venipuncture Venipuncture [address]Supervised Specimen Handling / Transfer: Office To Lab -Supervised Specimen Handling / Transfer: Office To Lab [id number]Supervised Specimen Handling / Transfer: Office To Lab -Supervised Specimen Handling / Transfer: Office To Lab [id number] 2007 TAMIA BALTAZAR [facility] Case Management, each 15 minutes 2007 LONG, IVANNA S [facility] Case Management, each 15 minutes 2007 LONG, IVANNA S [facility] Case Management, each 15 minutes 2007 LONG, IVANNA S [facility] Coordinated care fee, risk adjusted maintenance 2007 LONG, IVANNA S [facility] Case Management, each 15 minutes 2007 LONG, IVANNA S [facility] Case Management, each 15 minutes 2007 LONG, IVANNA S [facility] Case Management, each 15 minutes 2007 LONG, IVANNA S [facility] Case Management, each 15 minutes 2007 LONG, IVANNA S [facility] Case Management, each 15 minutes 2007 LONG, IVANNA S [facility] Case Management, each 15 minutes 2007 LONG, IVANNA S [facility] Case Management, each 15 minutes 2007 LONG, IVANNA S [facility] Case Management, each 15 minutes 2007 LONG, IVANNA S [facility] Treatment Of Swallowing Dysfunction Treatment Of Swallowing Dysfunction 77272 2007 ODALIS RODRIGUEZ [facility] Physical Therapy Neuromuscular Re-education Physical Therapy Neuromuscular Re-education 42694 2007 JAZZ CARTER [facility] Treatment Of Swallowing Dysfunction Treatment Of Swallowing Dysfunction 94768 2007 ODALIS RODRIGUEZ [facility] Training And Self-Care Skills Training And Self-Care Skills 90831 2007 JAZZ CARTER [facility] Medical Nutrition Therapy Re-a e ment, Intervention Medical Nutrition Therapy Re-assessment, Intervention 45464 2007 YOLANDA CEDEÑO [facility] Training And Self-Care Skills Training And Self-Care Skills 82461 2007 JAZZ CARTER [facility] Physical Therapy Neuromuscular Re-education Physical Therapy Neuromuscular Re-education 90224 2007 JAZZ CARTER. [facility] Social History Combined list of available smoking, tobacco, and other social history 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 Social History Type Response Date Comment Sour e Tobacco smoking status NHIS VA-TOBACCO NEVER USED OTHER TYPE 03/29/2025 [facility] History of tobacco use VA-TOBACCO USE EVERY DAY CIGARETTES 03/29/2025 [facility] History of tobacco use PA-TOBACCO FORMER USER 03/18/2024 [facility] History of tobacco use VA-TOBACCO USER EVERY DAY 03/18/2023 [facility] of [facility] 11/06/2022 [facility] History of tobacco use ORYX ADMIT TOBACCO SCREEN YES 11/06/2022 [facility] History of tobacco use LIFETIME NON-USER OF TOBACCO 01/17/2011 [facility] History of tobacco use LIFETIME NON-USER OF TOBACCO 03/04/2008 [facility] This section is an empty social history section. [facility] Plan of Care List of future care activities from Department of 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 Additional future care activities may be listed in the Assessment and Plan section. Date/Time Care Activity Care Activity Detail Facili ty 07/01/2025 AMBULATORY - MEDICINE AMBULATORY - MEDICI [facility]
[2025-05-15 18:00] VITALS: BP 124/99; PULSE 60; RESP 17; O2SAT 95
[2025-05-15 18:00] LABS: Alanine Aminotransferase 23 U/L (6-50); Albumin Level 4.6 g/dL (3.5-5.1); Alkaline Phosphatase 71 U/L (38-126); Anion Gap 7 mmol/L (4-12); Aspartate Amino Transferase 29 U/L (17-59); Bilirubin,Total 0.8 mg/dL (0.2-1.3); Blood Urea Nitrogen 14 mg/dL (9-20); Calcium 9.3 mg/dL (8.4-10.2); Carbon Dioxide 27 mmol/L (22-30); Chloride 106 mmol/L (98-107); Estimated CRCL calculation 94 ml/min; Estimated Glomerular Filt Rate > 60; Glucose 114 mg/dL (65-110); Magnesium 2.1 mg/dL (1.6-2.3); Osmolality Calculated 291 mOsm/kg (285-295); Potassium 3.7 mmol/L (3.4-5.0); Sodium 140 mmol/L (137-145); Total Protein 7.3 g/dL (6.3-8.2)
[2025-05-15 18:05] LABS: Add Urine Microscopic? NO; Appearance Urine Clear (Clear); Glucose Urine UA Negative (Negative); Leukocyte Esterase Ur Negative LEU/UL (Negative); Nitrate Urine Negative (Negative); Specific Grav Ur <= 1.005 (1.010-1.020)
[2025-05-15 18:12] LABS: NT Pro B Type Natriuretic Pept < 20 pg/mL (19.9-100); Troponin I < 0.012 ng/mL (0.000-0.034)
[2025-05-15 18:30] VITALS: BP 119/79; PULSE 56; RESP 18; O2SAT 97
[2025-05-15 18:31] LABS: Thyroid Stimulating Hormone 0.442 uIU/mL (0.465-4.680)
[2025-05-15 19:11] VITALS: BP 122/89; PULSE 78; RESP 18; O2SAT 99
== END 2025-05-15 19:11 | disposition home or self-care (01) ==
PROVIDERS: Emergency Provider Family Medicine; PCP Family Medicine
DX: J06.9 Acute upper respiratory infection, unspecified (principal); Z86.73 Personal history of transient ischemic attack (TIA), and cerebral infarction without residual deficits
CPT/HCPCS: 36415; 80053; 81003; 83735; 83880; 84443; 84484; 85025; 93005; 96361; 96374; 96375; 99284; J1885; J2405; J7030

== ENCOUNTER 2025-06-24 12:01 | Outpatient (CLI) | payer OTHER, SELFPAY ==
--- OUTSIDE RECORDS SUMMARY | 2025-06-24 12:07 | XMS_ITS | Patient Health Record ---
Author Organization [facility] Address [address] [place] [address] Care Team Providers Care Server Service Assistant Name Role Phone Goran Mckinney Primary Care Provider [phone] Allergies No Known Allergies Reason For Referral [...]
[2025-06-24 12:31] LABS: Hematocrit 45.1 % (40.0-54.0); Hemoglobin 15.3 g/dL (14.0-18.0); Immature Granulocyte Percent A 0.3 % (0.0-0.0); Lymphocytes Absolute Auto 1.68 K/mm3 (1.10-4.50); Mean Corpuscular HGB Conc 33.9 g/dL (32-36); Mean Corpuscular Hemoglobin 31.4 pg (27.0-31.0); Mean Corpuscular Volume 92.6 fL (78.0-102.0); Nucleated Red Blood Cells Absolute Auto 0.00 K/mm3 (0.00-0.00); Nucleated Red Blood Cells Perc 0.0 % (0-0.0); Platelet Count Result 219 K/mm3 (150-420); Red Blood Count 4.87 M/mm3 (4.70-6.10); White Blood Count 6.2 K/mm3 (4.8-10.8)
[2025-06-24 13:08] LABS: Alanine Aminotransferase 32 U/L (6-50); Albumin Level 4.9 g/dL (3.5-5.1); Alkaline Phosphatase 72 U/L (38-126); Anion Gap 8 mmol/L (4-12); Aspartate Amino Transferase 36 U/L (17-59); Bilirubin,Total 0.7 mg/dL (0.2-1.3); Blood Urea Nitrogen 13 mg/dL (9-20); CRP < 0.5 mg/dL (<1.0); Calcium 9.9 mg/dL (8.4-10.2); Carbon Dioxide 30 mmol/L (22-30); Chloride 105 mmol/L (98-107); Estimated Glomerular Filt Rate > 60; Glucose 102 mg/dL (65-110); Osmolality Calculated 296 mOsm/kg (285-295); Potassium 4.2 mmol/L (3.4-5.0); Sodium 143 mmol/L (137-145); Total Protein 8.4 g/dL (6.3-8.2)
[2025-06-24 13:37] LABS: Thyroid Stimulating Hormone 1.210 uIU/mL (0.465-4.680)
[2025-06-28 18:08] LABS: ANA by IFA Rfx Titer/Pattern Negative (.)
== END 2025-06-24 12:02 | disposition home or self-care (01) ==
PROVIDERS: PCP Family Medicine; Visit Provider Family Medicine
DX: R53.83 Other fatigue (principal)
CPT/HCPCS: 36415; 80053; 84443; 85025; 85652; 86038; 86140; 86430

== ENCOUNTER 2025-07-12 19:44 | Emergency (ER) | payer OTHER, SELFPAY ==
--- NOTE | 2025-07-12 20:19 | ED_ITS ---
HPI - Dental/Oral General Chief complaint: Dental/Oral Stated complaint: tooth infection Time Seen by Provider: 07/12/25 20:16 Source: patient Mode of arrival: ambulatory Limitations: no limitations History of Present Illness HPI Narrative: 39-year-old here with a complains of dental pain which is been ongoing for several months been on several rounds of antibiotic still continues to have pain. Patient states that his insurance will not cover for oral maxillary surgery and has no money to pay from his pocket as he is disabled. Denies any fever or chills. Has an appointment coming up with a dentist sometime in the next 2 weeks Complaint: tooth pain Location: Tooth # (20.21) Onset (ago): month(s) Duration: constant Severity scale (1-10): 5 Relieving factors: nothing Exacerbating factors: nothing Context: history of dental caries and poor dental care Associated symptoms: gum swelling Treatment prior to arrival: none Related Data Allergies Allergy/AdvReac Type Severity Reaction Status Date / Time No Known Allergies Allergy Verified 07/12/25 20:25 Review of Systems Review of Systems: All systems reviewed & are unremarkable except as noted in HPI and below Constitutional: Constitutional: Reports no additional constitutional complaints Eyes: Eyes: Reports no additional eye complaints ENT: Reports as per HPI Cardiovascular: Cardiovascular: Reports no additional cardiovascular complaints Respiratory: Respiratory: Reports no additional respiratory complaints Gastrointestinal: Gastrointestinal: Reports no additional gastrointestinal complaints Genitourinary: Genitourinary: Reports no additional male genitourinary complaints Musculoskeletal: Musculoskeletal: Reports no additional musculoskeletal complaints Neurologic: Reports system reviewed and no additional complaints, except as documented PMFSH Past Medical History Medical History AVM (arteriovenous malformation) brain Seizures AVM (arteriovenous malformation) History of stroke Exam Narrative: GENERAL: Well-appearing, well-nourished, and in no acute distress. HEAD: Normocephalic, atraumatic. EYES: PERRLA and EOMI. ENT: Nares clear, no rhinorrhea or epistaxis. Mucous membranes moist. has multiple dental caries #20 ,21 , gum is swollen appears to be chronic no abscess NECK: Supple. CHEST: Clear to auscultation. No respiratory distress. HEART: Regular rate and rhythm. No murmur heard. Normal peripheral pulses. EXTREMITIES: Normal range of motion. No edema. SKIN: Warm, dry, no rash. NEURO: No focal deficits. Alert and oriented x3. PSYCH: Normal mood and affect. Course Course Emergency Course: he has been on Augmentin we will change antibiotics to clindamycin recommended him to follow up with oral maxillary surgery with [facility] Discharge Plan Discharge Clinical Impression: Dental caries Patient Disposition: Home Condition: Stable Instructions: Antibiotic Form, Dental Abscess (ED) Additional Instructions: Follow with [facility] maxillary surgery at [facility] or at [place] Patient Language: [place] Prescriptions: New clindamycin HCl [Cleocin HCl] 300 mg capsule 300 mg PO Q6H Qty: 30 0RF No Action amoxicillin-pot clavulanate 875-125 mg tablet 1 tablet PO BID 10 Days Qty: 20 0RF clindamycin HCl 300 mg capsule 300 mg PO TID 10 Days Qty: 30 0RF ibuprofen 800 mg tablet 800 mg PO TID PRN (Reason: pain) Qty: 30 0RF orphenadrine citrate 100 mg tablet extended release 100 mg PO BID PRN (Reason: pain) Qty: 20 0RF methylprednisolone [Medrol (Yariel)] 4 mg tablets,dose pack See Rx Instructions .ROUTE .COMPLEX Qty: 21 0RF Rx Instructions: orally per package directions amoxicillin 500 mg tablet 500 mg PO TID Qty: 30 0RF amoxicillin-pot clavulanate 875-125 mg tablet 1 tablet PO Q12H Qty: 10 0RF clindamycin HCl 300 mg capsule 300 mg PO Q8H Qty: 20 0RF amoxicillin-pot clavulanate [Augmentin] 500-125 mg tablet 1 tablet PO TID Qty: 30 0RF Follow-up/Referrals: Luis Benz MD [Primary Care Provider, Internal Medicine] Stand Alone Forms: Work/School Release IP Time of Disposition: 20:25
[2025-07-12 20:20] VITALS: BP 162/92; PULSE 74; RESP 16; TEMP 36.3; O2SAT 99
[2025-07-12 20:42] VITALS: BP 136/100; PULSE 74; RESP 16; TEMP 36.4; O2SAT 97
== END 2025-07-12 20:44 | disposition home or self-care (01) ==
LOC: CHSED 20:29
PROVIDERS: Emergency Provider Family Medicine; PCP Family Medicine
DX: K02.9 Dental caries, unspecified (principal); Z86.73 Personal history of transient ischemic attack (TIA), and cerebral infarction without residual deficits
CPT/HCPCS: 99283

== ENCOUNTER 2025-07-14 09:25 | Outpatient (CLI) | payer OTHER, SELFPAY ==
--- NOTE | ~2025-07-14 | XR_ITS ---
EXAMINATION: XR mandible min 4V DATE: 07/14/2025 09:51 INDICATION: Periapical abscess without sinus disease TECHNIQUE: Left and right lateral views as well as frontal and open mouth frontal views of the mandible were obtained COMPARISON: None. FINDINGS: Extensive dental disease with multiple missing bilateral mandibular and maxillary molars and with multiple dental caries including enlarged. Inferiorly along the maxillary incisors. No definitive periapical erosions identified however assessment is significantly more limited than with CT. The mastoid air cells appear well-aerated. No air-fluid levels identified in the paranasal sinuses. Aneurysm clip at the right posterior fossa with overlying right occipital craniotomy. IMPRESSION: 1. Extensive dental disease with multiple missing teeth and multiple dental caries. No periapical erosions identified although evaluation is significantly more limited than with CT. 2. Postoperative change of prior right occipital craniectomy with aneurysm clipping in the right posterior fossa. Reviewed, dictated and finalized at location A. IMPRESSION: 1. Extensive dental disease with multiple missing teeth and multiple dental car ies. No periapical erosions identified although evaluation is significantly mor e limited than with CT. 2. Postoperative change of prior right occipital craniectomy with aneurysm clip ping in the right posterior fossa.
[2025-07-14 09:37] LABS: Hematocrit 45.1 % (40.0-54.0); Hemoglobin 15.1 g/dL (14.0-18.0); Mean Corpuscular HGB Conc 33.5 g/dL (32-36); Mean Corpuscular Hemoglobin 31.3 pg (27.0-31.0); Mean Corpuscular Volume 93.4 fL (78.0-102.0); Platelet Count Result 208 K/mm3 (150-420); Red Blood Count 4.83 M/mm3 (4.70-6.10); White Blood Count 6.5 K/mm3 (4.8-10.8)
[2025-07-14 10:15] LABS: Alanine Aminotransferase 33 U/L (6-50); Albumin Level 4.8 g/dL (3.5-5.1); Alkaline Phosphatase 68 U/L (38-126); Anion Gap 8 mmol/L (4-12); Aspartate Amino Transferase 36 U/L (17-59); Bilirubin,Total 0.5 mg/dL (0.2-1.3); Blood Urea Nitrogen 13 mg/dL (9-20); CRP < 0.5 mg/dL (<1.0); Calcium 9.6 mg/dL (8.4-10.2); Carbon Dioxide 29 mmol/L (22-30); Chloride 106 mmol/L (98-107); Estimated Glomerular Filt Rate > 60; Glucose 126 mg/dL (65-110); Osmolality Calculated 298 mOsm/kg (285-295); Potassium 4.6 mmol/L (3.4-5.0); Sodium 143 mmol/L (137-145); Total Protein 8.3 g/dL (6.3-8.2)
--- OUTSIDE RECORDS SUMMARY | 2025-07-14 10:23 | XMS_ITS | Patient Health Record ---
Author Organization [facility] Address [address] [place] [address] Care Team Providers Care Meat Apprentice Name Role Phone Goran Mckinney Primary Care Provider [phone] Allergies No Known Allergies Reason For Referral No Information Medications Medication SIG (Take, Route, Frequency, Duration) Notes Start Date End Date Status Amoxicillin Active Social History Tobacco Use: Social History Observation Description Date Details (start date - stop date) Current Smoker NA - NA Social History Tobacco Use: Social Info Question Answer Notes Tobacco Use/Smoking Are you a current smoker Plan Of Treatment No Information Medical (General) History Medical History History ICD Code high blood pressure herpes/fever blisters dialysis-2008 radiation treatment difficulty breathing stroke 2008 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
== END 2025-07-14 09:26 | disposition home or self-care (01) ==
LOC: CHSLAB 09:27
PROVIDERS: PCP Family Medicine; Visit Provider Family Medicine
DX: K04.7 Periapical abscess without sinus (principal); K08.9 Disorder of teeth and supporting structures, unspecified; Z98.890 Other specified postprocedural states; Z86.79 Personal history of other diseases of the circulatory system
CPT/HCPCS: 36415; 70110; 80053; 85027; 85652; 86140

== ENCOUNTER 2025-07-23 13:31 | Emergency (ER) | payer OTHER, SELFPAY ==
--- NOTE | ~2025-07-23 | XR_ITS ---
EXAMINATION: XR mandible min 4V, 07/23/2025 13:45 CDT HISTORY: Lt. lower jaw pain after extraction of 14 teeth. COMPARISON: No comparisons available. Findings: No acute fracture or malalignment. No significant degenerative changes. Soft tissues unremarkable. Impression: No acute fracture or malalignment. Reviewed, dictated and finalized at location P. Impression: No acute fracture or malalignment.
[2025-07-23 13:31] VITALS: BP 160/100; PULSE 82; RESP 17; TEMP 36.7; O2SAT 99
--- NOTE | 2025-07-23 13:46 | PC.NURSE ---
Patient taken down to CT.
[2025-07-23] MEDS: KETOROLAC (*BKC) 60 MG/2 ML VIAL IM (13:58)
--- NOTE | 2025-07-23 14:16 | ED.DENTAL ---
HPI - Dental/Oral General Chief complaint: Dental/Oral Stated complaint: dental pain Time Seen by Provider: 07/23/25 13:32 Source: patient and family History of Present Illness HPI Narrative: Pain patient with some mouth pain after he had a dental extraction performed today sent home by his dentist without any pain medication, currently on antibiotics, has been having dental and jaw pain since his tooth procedures earlier today. No fever chills no nausea vomiting no abdominal pain no chest pain or shortness of breath. Onset (ago): hour(s) Duration: constant Severity: moderate Severity scale (1-10): 7 Relieving factors: nothing Exacerbating factors: chewing Related Data Allergies Allergy/AdvReac Type Severity Reaction Status Date / Time No Known Allergies Allergy Verified 07/23/25 13:37 Review of Systems Review of Systems: All systems reviewed & are unremarkable except as noted in HPI and below PMFSH Past Medical History Medical History AVM (arteriovenous malformation) brain Seizures AVM (arteriovenous malformation) History of stroke Exam Const: General: healthy appearing and no acute distress Nutritional Appearance: well nourished Orientation/consciousness: patient oriented x3 Limitations: no limitations HENMT: Head: normal to inspection Other: Tenderness in the lower jaw area with palpation Neck: Neck: normal visual inspection, no lymphadenopathy and no meningeal signs Chest: Chest palpation & inspection: normal inspection of the chest Resp: Effort & Inspection: normal respiratory effort Auscultation: clear to auscultation bilaterally Cardio: Rate: regular rate Rhythm: regular rhythm GI: GI Palp: Yes Soft to palpation Auscultation: normal bowel sounds Course Course Emergency Course: Medical decision making narrative: Patient was evaluated by myself for the emergency department. History is obtained from the patient and family were independent historians and physical exam performed and witnessed by tech. And no nurse. Repeat examination patient doing well on repeat examination with no acute distress X-rays reviewed and discussed with patient and family. Repeat vitals are stable Patient agrees with discussion after shared medical decision making and agrees with discharge. All questions answered to the patient's satisfaction. Advised follow-up with primary our dentist within the next week for further evaluation and treatment. Vital Signs Vital signs: Vital Signs Temperature 36.7 C 07/23/25 13:31 Pulse Rate 82 07/23/25 13:31 Respiratory Rate 17 07/23/25 13:31 Blood Pressure 160/100 H 07/23/25 13:31 Pulse Oximetry 99 07/23/25 13:31 Oxygen Delivery Room Air 07/23/25 13:31 Temperature 36.7 C 07/23/25 13:31 Pulse Rate 71 07/23/25 14:43 Respiratory Rate 17 07/23/25 14:43 Blood Pressure 147/93 H 07/23/25 14:43 Pulse Oximetry 99 07/23/25 14:43 Oxygen Delivery Room Air 07/23/25 13:31 Discharge Plan Discharge Clinical Impression: Toothache Patient Disposition: Home Condition: Stable Instructions: Antibiotic Form, Acute Dental Trauma (ED), Toothache (ED) Additional Instructions: Advised to take medication as prescribed and to follow with primary our dentist within the next 3 to 5 days for further evaluation treatment. Patient Language: [place]ian Prescriptions: New oxycodone-acetaminophen [Percocet] 5-325 mg tablet 1 tablet PO Q6H PRN (Reason: pain) Qty: 20 0RF No Action orphenadrine citrate 100 mg tablet extended release 100 mg PO BID PRN (Reason: pain) Qty: 20 0RF amoxicillin-pot clavulanate 875-125 mg tablet 1 tablet PO Q12H Qty: 10 0RF clindamycin HCl [Cleocin HCl] 300 mg capsule 300 mg PO Q6H Qty: 30 0RF Follow-up/Referrals: Luis Benz MD [Primary Care Provider, Internal Medicine] Stand Alone Forms: Work/School Release IP Time of Disposition: 14:40
[2025-07-23 14:43] VITALS: BP 147/93; PULSE 71; RESP 17; O2SAT 99
== END 2025-07-23 14:43 | disposition home or self-care (01) ==
PROVIDERS: Emergency Provider Emergency Medicine; PCP Family Medicine
DX: K08.89 Other specified disorders of teeth and supporting structures (principal); Z86.73 Personal history of transient ischemic attack (TIA), and cerebral infarction without residual deficits
CPT/HCPCS: 70110; 96372; 99283; J1885